=== PATIENT | female | born 1980 | race Caucasian/White ===

== ENCOUNTER 2020-08-07 08:43 | Outpatient (REF) | payer OTHER, SELFPAY ==
--- NOTE | 2020-08-07 | FL_ITS ---
EXAMINATION: XR FLUOROSCOPY WITH IMAGES CLINICAL INFORMATION: Right diagnostic cluneal nerve injection COMPARISON: CT abdomen and pelvis 11/16/2019 TECHNIQUE: Fluoroscopy performed by Dr. Fredy Chang. Fluoroscopy time: 0.6 minutes DAP: 3.50 Gycm2 Images: 1 FINDINGS: There are 2 needles overlying the upper lateral right sacrum. There is contrast along the upper sacrum and vasculature lower right back. There may be some contrast in the nerve sheath overlying right buttocks. IMPRESSION: Fluoroscopy for pain management procedure.
== END 2020-08-07 08:44 | disposition home or self-care (01) ==
LOC: HO.RADIR 08:43
PROVIDERS: Visit Provider Anesthesiology
DX: M47.816 Spondylosis without myelopathy or radiculopathy, lumbar region (principal); G58.8 Other specified mononeuropathies; G89.4 Chronic pain syndrome
CPT/HCPCS: 64450; Q9967

== ENCOUNTER 2020-08-10 10:29 | Outpatient (REF) | payer OTHER, SELFPAY ==
[2020-08-10 12:03] LABS: COVID-19 Test Negative (Negative)
== END 2020-08-10 10:30 | disposition home or self-care (01) ==
LOC: HO.LAB 10:29
PROVIDERS: Visit Provider Internal Medicine
DX: Z20.828 Contact with and (suspected) exposure to other viral communicable diseases (principal)
CPT/HCPCS: 87635

== ENCOUNTER → 2020-08-15 16:59 | Outpatient (BNVA) | payer OTHER, SELFPAY | PROVIDERS: PCP Internal Medicine; Referring Provider Internal Medicine; Visit Provider Anesthesiology | DX: G89.4 Chronic pain syndrome (principal); E10.41 Type 1 diabetes mellitus with diabetic mononeuropathy; M47.816 Spondylosis without myelopathy or radiculopathy, lumbar region ==

== ENCOUNTER 2020-08-21 08:14 | Outpatient (REF) | payer OTHER, SELFPAY ==
--- NOTE | 2020-08-21 14:31 | FL_ITS ---
EXAMINATION: XR FLUOROSCOPY WITH IMAGES CLINICAL INFORMATION: Back pain. COMPARISON: None. TECHNIQUE: Fluoroscopy performed by Dr. Chang. Fluoroscopy time: 0.4 minutes. DAP: 3.15 Gy-cm2. Images: 4. FINDINGS: There are 4 digital images obtained with needle positioned posterior and adjacent to right L5, L4, L3 and L2 vertebra with contrast injection likely for pain management. There is mild loss of L4-L5 disc height. The rest of the disc heights are normal. FL/FL guidance in treatment room IMPRESSION: Fluoroscopy was provided to Dr. Chang for pain management as described above.
== END 2020-08-21 08:15 | disposition home or self-care (01) ==
LOC: HO.RADIR 08:14
PROVIDERS: Visit Provider Anesthesiology
DX: M51.36 Other intervertebral disc degeneration, lumbar region (principal); M47.816 Spondylosis without myelopathy or radiculopathy, lumbar region
CPT/HCPCS: 64493; 64494; Q9967

== ENCOUNTER → 2020-08-30 08:23 | Outpatient (BNVA) | payer OTHER, SELFPAY | PROVIDERS: PCP Internal Medicine; Visit Provider Anesthesiology | DX: Z76.89 Persons encountering health services in other specified circumstances (principal) ==

== ENCOUNTER 2020-09-05 08:21 | Outpatient (RCR) | payer OTHER, SELFPAY ==
--- NOTE | 2020-09-05 11:04 | PC.NURSE ---
Assessment completed on paper to fax to [facility] with release of information.
== END 2020-09-05 12:45 | disposition home or self-care (01) ==
LOC: HO.PAOS 08:21
PROVIDERS: Referring Provider Anesthesiology; Visit Provider Counselor Mental Health
DX: F33.0 Major depressive disorder, recurrent, mild (principal)
CPT/HCPCS: 90791

== ENCOUNTER 2020-09-25 07:56 | Outpatient (REF) | payer OTHER, SELFPAY ==
--- NOTE | 2020-09-25 | MM_ITS ---
EXAMINATION: MM SCREENING DIGITAL BREAST TOMOSYNTHESIS, BILATERAL CLINICAL INFORMATION: Screening. Asymptomatic. The lifetime risk of breast cancer based on the Tyrer-Cuzick Model is 12%. COMPARISON: Mammography: 09/23/2019 (baseline) TECHNIQUE: Digital breast tomosynthesis is performed in both the craniocaudal and mediolateral oblique views along with computer-aided detection (CAD). Synthesized 2D images are generated from the tomosynthesis. Additional exaggerated right CC view is provided. FINDINGS: The breasts are heterogeneously dense, which may obscure small masses (ACR BI-RADS breast composition Category c). Breast tissue composition borders on average fibroglandular pattern is similar to prior exam. There is no interval mass or architectural abnormality. No abnormal calcifications. The axilla and skin contours are unremarkable. No significant changes. MM/MM tomosynthesis screening BI IMPRESSION: No mammographic evidence of malignancy. ASSESSMENT: BI-RADS 1: Negative RECOMMENDATION: Routine annual mammography screening. This patient's information was entered into a reminder system with a target due date for their next mammogram.
== END 2020-09-25 07:57 | disposition home or self-care (01) ==
LOC: HO.MAMMO 07:56
PROVIDERS: Visit Provider Internal Medicine
DX: Z12.31 Encounter for screening mammogram for malignant neoplasm of breast (principal)
CPT/HCPCS: 77063; 77067

== ENCOUNTER → 2020-10-29 13:56 | Outpatient (BNVA) | payer OTHER, SELFPAY | PROVIDERS: PCP Internal Medicine; Referring Provider Internal Medicine; Visit Provider Internal Medicine Endocrinology, Diabetes & Metabolism | DX: Z76.89 Persons encountering health services in other specified circumstances (principal) ==

== ENCOUNTER 2020-11-02 09:06 | Day surgery (SDC) | payer OTHER, SELFPAY ==
[2020-10-29 09:33] VITALS: BMI 26.3
--- NOTE | 2020-11-01 11:52 | HO.ANESPROP2 ---
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 Postlaminectomy syndrome of lumbar region Spondylosis of lumbar region without myelopathy or radiculopathy Surgical History Surgical History History of hemilaminectomy Hx of colonoscopy Social History Social History Advance Directives: No Advance Directives Information Provided: No Advance Directives on File: No Meds Allergies Allergy/AdvReac Type Severity Reaction Status Date / Time azithromycin Allergy Unknown RASH Unverified 07/12/20 16:46 cephalexin Allergy Unknown RASH Unverified 07/12/20 16:46 Penicillins Allergy Unknown RASH Unverified 07/12/20 16:46 Sulfa (Sulfonamide Allergy Unknown RASH Unverified 07/12/20 16:46 Antibiotics) mesalamine AdvReac Unknown DOES NOT Unverified 07/12/20 16:46 WORK FOR PATIENT Home Medications Medication Instructions Recorded Confirmed Type ferrous sulfate 324 mg (65 mg 324 mg PO BID 08/21/20 10/29/20 History iron) tablet,delayed release linaclotide 145 mcg capsule 145 mcg PO DAILY 08/21/20 10/29/20 History pantoprazole 40 mg tablet,delayed 40 mg PO DAILY 08/21/20 10/29/20 History release ascorbate calcium (vitamin C) 500 500 mg PO DAILY 10/29/20 10/29/20 History mg tablet atorvastatin 40 mg tablet 40 mg PO DAILY 10/29/20 10/29/20 History azathioprine 50 mg tablet 50 mg PO 10/29/20 10/29/20 History cholecalciferol (vitamin D3) 1 cap PO DAILY 10/29/20 10/29/20 History gabapentin 1 cap PO TID 10/29/20 10/29/20 History hyoscyamine sulfate 1 tab PO Q12H 10/29/20 10/29/20 History insulin glargine U-300 conc 300 10 unit SUBCUT DAILY ml 10/29/20 10/29/20 History unit/mL (1.5 mL) subcutaneous pen pen needle, diabetic 32 gauge x #50 ea 10/29/20 10/29/20 History ustekinumab [Stelara] SUBCUT 10/29/20 10/29/20 History Exam Exam Date and Time: November 01, 2020 1152 Height,Weight and Vital Signs: Height 5 ft 2 in Weight 65.317 kg Pertinent Lab Results Pertinent Lab Results: Laboratory Tests 03/30/20 06/15/20 15:40 09:40 WBC 5.8 Hgb 11.6 L Hct 34.9 L Plt Count 347 Sodium 139 Potassium 4.4 Chloride 103 BUN 17 H Creatinine 0.74 Assessment and Plan Assessment Anesthesia Assessment: Chart Reviewed Documented by User: Nisreen Villagran 11/02/20 09:46 PMFSH Past Medical History Medical History Anxiety Chronic pain syndrome Crohn's disease Diabetes type 1, controlled 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 Elevated cholesterol 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), 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 Postlaminectomy syndrome of lumbar region Spondylosis of lumbar region without myelopathy or radiculopathy Surgical History Surgical History History of hemilaminectomy Hx of colonoscopy Social History Social History Advance Directives: No Advance Directives Information Provided: No Advance Directives on File: No Meds Allergies Allergy/AdvReac Type Severity Reaction Status Date / Time azithromycin Allergy Unknown RASH Unverified 07/12/20 16:46 cephalexin Allergy Unknown RASH Unverified 07/12/20 16:46 Penicillins Allergy Unknown RASH Unverified 07/12/20 16:46 Sulfa (Sulfonamide Allergy Unknown RASH Unverified 07/12/20 16:46 Antibiotics) mesalamine AdvReac Unknown DOES NOT Unverified 07/12/20 16:46 WORK FOR PATIENT Home Medications Medication Instructions Recorded Confirmed Type ferrous sulfate 324 mg (65 mg 324 mg PO BID 08/21/20 10/29/20 History iron) tablet,delayed release linaclotide 145 mcg capsule 145 mcg PO DAILY 08/21/20 10/29/20 History pantoprazole 40 mg tablet,delayed 40 mg PO DAILY 08/21/20 10/29/20 History release ascorbate calcium (vitamin C) 500 500 mg PO DAILY 10/29/20 10/29/20 History mg tablet atorvastatin 40 mg tablet 40 mg PO DAILY 10/29/20 10/29/20 History azathioprine 50 mg tablet 50 mg PO 10/29/20 10/29/20 History cholecalciferol (vitamin D3) 1 cap PO DAILY 10/29/20 10/29/20 History gabapentin 1 cap PO TID 10/29/20 10/29/20 History hyoscyamine sulfate 1 tab PO Q12H 10/29/20 10/29/20 History insulin glargine U-300 conc 300 10 unit SUBCUT DAILY ml 10/29/20 10/29/20 History unit/mL (1.5 mL) subcutaneous pen pen needle, diabetic 32 gauge x #50 ea 10/29/20 10/29/20 History ustekinumab [Stelara] SUBCUT 10/29/20 10/29/20 History Exam Airway Mallampati Class: II (Small mouth) TM Dist: >3cm Neck ROM: Full Heart: RRR Lungs: CTA Assessment and Plan Assessment Anesthesia Assessment: Anesthesia Plan Discussed and Chart Reviewed Final Anesthetic Review NPO: Yes ASA Class: II Final Preanesthetic Review: Meds/Allgs Chart Reviewed, Consent Obtained/Reviewed and Anes Risks/Benef Reviewed Patient Risk: Intermediate Procedure Risk: Intermediate Anesthetic Plan Anesthetic Plan: MAC: Disposition: Standard PACU
--- NOTE | 2020-11-02 | FL_ITS ---
EXAMINATION: XR FLUOROSCOPY WITH IMAGES CLINICAL INFORMATION: Lumbar spinal cord stimulation. COMPARISON: None. TECHNIQUE: Fluoroscopy performed by Dr. Chang Fluoroscopy time: 1.2 minutes DAP: 3.4 mGy-cm2 Images: 2 FINDINGS: Two images demonstrate a lead projecting over the lower thoracic spine with top of the lead at the T7-T8 and mid T8 vertebral body levels. FL/FL guidance in OR IMPRESSION: Fluoroscopy guidance for lumbar spinal cord stimulator.
--- NOTE | 2020-11-02 09:16 | MHC.SHP ---
Pre-Procedural Eval Section A The patient is an INPATIENT: No Changes since office visit: Yes Patient answered all questions The History & Physical has been completed within 30 days and I have reviewed it.: No Section B Chief Complaint: postlaminectomy syndrome Details of Present Illness: low back pain with radiation into the right groin and back of the right leg. Relevant Family History (Specify if Yes): No Relevant Social History: None Present Medications: None Medical History: No relevant PMH History of Previous Operations: Relevant previous surgery/procedure and date(s) Allergies: Allergies Allergy/AdvReac Type Severity Reaction Status Date / Time azithromycin Allergy Unknown RASH Unverified 07/12/20 16:46 cephalexin Allergy Unknown RASH Unverified 07/12/20 16:46 Penicillins Allergy Unknown RASH Unverified 07/12/20 16:46 Sulfa (Sulfonamide Allergy Unknown RASH Unverified 07/12/20 16:46 Antibiotics) mesalamine AdvReac Unknown DOES NOT Unverified 07/12/20 16:46 WORK FOR PATIENT Review of Systems Sugical H&P ROS: Negative: Constitution, Cardiovascular, Respiratory, Neurological, Psychiatric, Hem-Onc, Allergic/Immunologic, Gastrointestinal, Genitourinary, Musculoskeletal, Integumentary, Endocrine and Eyes/Ears/Nose/Throat Exam Surgical H&P Exam: Normal: HEENT, Normal: Heart, Normal: Lungs, Normal: Extremities, Normal: Abdomen, Normal: Skin and Normal: Neurological Plan Diagnosis/Plan: Unchanged I have reviewed the history and physical and performed a pertinent physical examination on my patient. No changes have occurred unless specified.
[2020-11-02 09:36] LABS: Glucose, Whole Blood 111 mg/dL (60-115)
[2020-11-02 09:39] VITALS: BP 142/85; PULSE 80; RESP 16; TEMP 36.4; O2SAT 97
[2020-11-02 09:48] LABS: UPreg QC Valid YES; Urine Pregnancy NEGATIVE (NEGATIVE)
[2020-11-02] MEDS: vancomycin HCL 1,000 MG in 0.9 % Sodium Chloride 250 ML 270 MG IV (09:50)
[2020-11-02] MEDS: Lactated Ringers 1,000 ML 100 ML IVCONT (09:50)
[2020-11-02 11:37] VITALS: BP 151/98; PULSE 85; RESP 12; TEMP 36.5; O2SAT 99
[2020-11-02 11:52] VITALS: BP 140/86; PULSE 72; RESP 16; O2SAT 99
[2020-11-02] MEDS: oxyCODONE HCl Immed Release 5 MG TABLET 10 MG PO (12:03)
[2020-11-02 12:07] VITALS: BP 147/81; PULSE 74; RESP 16; TEMP 36.5; O2SAT 100
--- NOTE | 2020-11-02 13:52 | HO.POSTANES ---
Post Anesthesia Evaluation Post Anesthesia Evaluation Vital Signs: Vital Signs Temp Pulse Resp BP Pulse Ox 11/02/20 12:07 97.7 F 74 16 147/81 H 100 11/02/20 11:52 72 16 140/86 H 99 11/02/20 11:37 97.7 F 85 12 151/98 H 99 11/02/20 09:39 97.5 F 80 16 142/85 H 97 Anesthesia: Monitored Mental Status: Awake Pain Control: Satisfactory Nausea/Vomiting: None Hydration: Adequate Anesthesia-Related Issues: No Anes. Related Issues
--- NOTE | 2020-11-02 14:18 | P.OP_ITS ---
Operative Note Operative Note Date of Service: 11/02/20 Narrative: After obtaining informed consent and explaining the patient risks benefits and alternatives to today's procedure the patient was taking into the operating room where she positioned prone on the operating table. [place] So ciety of Anesthesiology monitors were applied and patient was deeply sedated. Time I was performed delineating correct site side and name and date of of the patient. Risk of fire need of antibiotics were discussed. Patient received 1 g of vancomycin 1 hour before the procedure start of the infusion. The lower back and mid back of the patient was prepped with ChloraPrep and draped with fenestrated full body drape. Sterilely draped C-arm was brought over the operating field and sq picture of T12-L1 L2 vertebrae was demonstrated on the screen. The point of interest was delineated as L1-L2 interspace. In the projection of lowest point of L 2 pedicle on the right the injection of the local anesthetic lidocaine 2% was performed in the presumable track of the epidural needle. Small kathy of the scalpel was made at that site to the skin. 14 gauge curved epidural Touhy needle was inserted through the kathy and was advanced to were the L1-L2 epidural space on anterior posterior view using loss of resistance to air technique as the guide to the epidural space. When loss of resistance felt guitar wire was inserted into the needle and it was advanced in the projection of the posterior epidural space. Epidural electrode array was inserted through the needle and was advanced to were T8 epidural space slightly right to the projection of the midline spinal processes of T8 and T9 vertebra. After that the procedure was repeated the same very way on the left side. The only difference was that this time the epidural electrode array was advanced straight midline to the top of T8 posterior epidural space. Lateral view was obtained x-ray demonstrating the epidural array leads in the projection of the posterior epidural space. At this moment patient was awaken and the end of the electrode lead R is were connected to the testing device. The testing was performed a and patient reported stimulation corresponding to her areas of the pain. After that local anesthetic was injected again in the point of needle insertions. Under x-ray guidance the needles were withdrawn and stylets were withdrawn from the electrode leads arrays. Anchoring devices were dislodged on each of the electrodes a and anchoring devices were sutured to the skin with 2 0 silk sutures per HR anchoring device. After that bacitracin was applied to the needles entrance points sterile 4x4s were applied the electrodes were connected to the testing device and sterile dressing was applied to the site of the procedure. After that the testing device and electrodes were covered with Medipore tape. The patient tolerated procedure well. She was awaken and taken outside of the operating room to the recovery room. She went home without immediate complications.
== END 2020-11-02 12:45 | disposition home or self-care (01) ==
PROVIDERS: Nurse Practitioner; PCP Internal Medicine; Visit Provider Anesthesiology
PROC: (CPT 63650; principal; 2020-11-02 10:30)
DX: M96.1 Postlaminectomy syndrome, not elsewhere classified (principal); G89.4 Chronic pain syndrome; M47.816 Spondylosis without myelopathy or radiculopathy, lumbar region; M51.36 Other intervertebral disc degeneration, lumbar region; E10.41 Type 1 diabetes mellitus with diabetic mononeuropathy; Z79.4 Long term (current) use of insulin; Z88.1 Allergy status to other antibiotic agents; Z88.2 Allergy status to sulfonamides; Z88.8 Allergy status to other drugs, medicaments and biological substances
CPT/HCPCS: 63650 ×2; 81025; 82947; J1200; J2250; J2405; J3010; J3370

== ENCOUNTER 2020-11-07 09:03 | Outpatient (REF) | payer OTHER, SELFPAY ==
[2020-11-07 09:24] LABS: COVID-19 Test Negative (Negative); IDNOW Serial# 55D5AD1C
== END 2020-11-07 09:04 | disposition home or self-care (01) ==
LOC: HO.EMPCOV 09:03
PROVIDERS: Visit Provider Internal Medicine
DX: Z20.822 Contact with and (suspected) exposure to COVID-19 (principal)
CPT/HCPCS: 36415; 87635; C9803

== ENCOUNTER → 2020-11-08 13:05 | Outpatient (BNVA) | payer OTHER, SELFPAY | PROVIDERS: Visit Provider Anesthesiology | DX: Z76.89 Persons encountering health services in other specified circumstances (principal) ==

== ENCOUNTER → 2020-11-15 10:44 | Outpatient (BNVA) | payer OTHER, SELFPAY | PROVIDERS: PCP Internal Medicine; Visit Provider Anesthesiology ==

== ENCOUNTER 2020-11-29 13:04 | Outpatient (REF) | payer OTHER, SELFPAY ==
[2020-11-29 13:25] LABS: COVID-19 Test Negative (Negative)
== END 2020-11-29 13:05 | disposition home or self-care (01) ==
LOC: HO.EMPCOV 13:04
PROVIDERS: Visit Provider Internal Medicine
DX: Z20.822 Contact with and (suspected) exposure to COVID-19 (principal)
CPT/HCPCS: 87635; C9803

== ENCOUNTER 2020-12-05 14:59 | Outpatient (REF) | payer OTHER, SELFPAY ==
[2020-12-05 15:26] LABS: COVID-19 Test Negative (Negative)
== END 2020-12-05 15:00 | disposition home or self-care (01) ==
LOC: HO.EMPCOV 14:59
PROVIDERS: Visit Provider Internal Medicine
DX: Z20.822 Contact with and (suspected) exposure to COVID-19 (principal)
CPT/HCPCS: 36415; 87635; C9803

== ENCOUNTER → 2020-12-24 11:34 | Outpatient (BNVA) | payer OTHER, SELFPAY | PROVIDERS: PCP Internal Medicine; Visit Provider Anesthesiology | DX: G89.29 Other chronic pain (principal); M47.816 Spondylosis without myelopathy or radiculopathy, lumbar region; M51.36 Other intervertebral disc degeneration, lumbar region; M96.1 Postlaminectomy syndrome, not elsewhere classified; M51.26 Other intervertebral disc displacement, lumbar region | CPT/HCPCS: 99212 ==

== ENCOUNTER 2020-12-24 12:49 | Outpatient (REF) | payer OTHER, SELFPAY ==
[2020-12-24 14:07] LABS: Hematocrit 37.8 % (37-47); Hemoglobin 12.6 g/dl (12.0-16.0); Mean Corpuscular HGB Conc 33.3 g/dl (31.0-35.0); Mean Corpuscular Hemoglobin 33.4 pg (27.0-33.0); Mean Corpuscular Volume 100.3 fL (80-98); Mean Platelet Volume 11.2 fL (9.4-12.3); Platelet Count 462 X10*3/uL (160-400); Red Blood Count 3.77 X10*6/uL (4.20-5.50); Red Cell Distribution Width 13.6 % (11.0-16.0)
[2020-12-24 14:27] LABS: Estimated Average Glucose 114 mg/dL; Hemoglobin A1c % 5.6 %
[2020-12-24 14:56] LABS: Alanine Aminotransferase 6 U/L (0-31); Albumin Level 4.2 g/dL (3.5-5.0); Alkaline Phosphatase 52 U/L (39-117); Anion Gap 15 (12-20); Aspartate Amino Transferase 13 U/L (5-31); Bilirubin Total 0.6 mg/dL (0.0-1.0); Blood Urea Nitrogen 13 mg/dL (9-16); C Reactive Protein 0.22 mg/dL (< or = 0.50); Calcium 9.1 mg/dL (8.4-10.2); Carbon Dioxide 24 mmol/L (22-29); Chloride 106 mmol/L (96-108); Cholesterol 178 mg/dL; Estimated Glomerular Filt Rate > 60; Glucose Fasting 87 mg/dL (60-99); HDL Cholesterol 54 mg/dL; LDL Cholesterol Calculated 98 mg/dl; Potassium 4.2 mmol/L (3.3-5.1); Sodium 141 mmol/L (135-145); Total Protein 7.1 g/dL (6.5-8.0); Triglycerides 131 mg/dL
[2020-12-24 15:00] LABS: Erythrocyte Sedimentation Rate 14 MM/HR (0-20)
[2020-12-25 20:47] LABS: LDL Cholesterol Direct 107 mg/dL (<100)
== END 2020-12-24 12:50 | disposition home or self-care (01) ==
LOC: HO.10HDL 12:49
PROVIDERS: Absent Provider Internal Medicine Gastroenterology; Visit Provider Internal Medicine Endocrinology, Diabetes & Metabolism
DX: E13.9 Other specified diabetes mellitus without complications (principal); K50.10 Crohn's disease of large intestine without complications
CPT/HCPCS: 36415; 80053; 80061; 82397; 83036; 83520; 83721; 85027; 85652; 86140; 86141

== ENCOUNTER 2021-01-07 16:56 | Outpatient (REF) | payer OTHER, SELFPAY | END 2021-01-07 16:57 | disposition home or self-care (01) | LOC: HO.LNP 16:56 | PROVIDERS: Visit Provider Obstetrics & Gynecology | DX: Z13.89 Encounter for screening for other disorder (principal) | CPT/HCPCS: 87480; 87510; 87660 ==

== ENCOUNTER 2021-01-08 06:11 | Outpatient (REF) | payer OTHER, SELFPAY | END 2021-01-08 06:12 | disposition home or self-care (01) | LOC: HO.RADIR 06:11 | PROVIDERS: Visit Provider Anesthesiology | DX: M47.816 Spondylosis without myelopathy or radiculopathy, lumbar region (principal); M51.36 Other intervertebral disc degeneration, lumbar region; M96.1 Postlaminectomy syndrome, not elsewhere classified; M79.18 Myalgia, other site; G58.8 Other specified mononeuropathies; G89.4 Chronic pain syndrome; E13.9 Other specified diabetes mellitus without complications; K50.90 Crohn's disease, unspecified, without complications; Z79.4 Long term (current) use of insulin | CPT/HCPCS: 20552; J3300 ==

== ENCOUNTER → 2021-01-10 08:41 | Outpatient (BNVA) | payer OTHER, SELFPAY | PROVIDERS: PCP Internal Medicine; Visit Provider Anesthesiology ==

== ENCOUNTER 2021-01-22 04:07 | Emergency (ER) | payer OTHER, SELFPAY ==
--- NOTE | ~2021-01-22 | CT_ITS ---
EXAMINATION: CT ABDOMEN AND PELVIS WITH CONTRAST CLINICAL INFORMATION: Left lower quadrant pain. History of Crohn's disease COMPARISON: None TECHNIQUE: Multidetector volumetric images were obtained from the superior aspect of the liver through the pubic symphysis following administration 85 mL of Omnipaque 350 intravenous contrast. Sagittal and coronal reformatted images were obtained on the technologist's workstation. Oral contrast: No This CT examination was performed using dose optimization techniques as appropriate, variously including the following: *Automated exposure control *Adjustment of mA and/or kV according to patient size (this includes techniques or standardized protocols for targeted exams where dose is matched to indication/reason for exam; i.e. extremities or head) *Use of iterative reconstruction technique DLP: 503 mGy-cm FINDINGS: LUNG BASES: The lung bases are clear. LIVER, GALLBLADDER, AND BILIARY TREE: The liver is normal in size, shape, and attenuation. No focal hepatic lesion or biliary ductal dilatation is present. The gallbladder is unremarkable with no evidence of radiopaque gallstones, gallbladder wall thickening, or obvious pericholecystic inflammatory changes. PANCREAS: Unremarkable. SPLEEN: Unremarkable. ADRENAL GLANDS: Unremarkable. KIDNEYS AND URETERS: The kidneys are normal in size, shape, and attenuation. No hydronephrosis, hydroureter, or calculi seen. No perinephric stranding. BLADDER: Unremarkable. GASTROINTESTINAL TRACT: There is scattered stool and gas seen in the colon without significant distention. There is diffuse mural thickening involving descending and sigmoid colon with minimal pericolic fat stranding suggestive of colitis. The small bowel loops and normal caliber. Appendix is not visualized. ABDOMINAL WALL: There is a small lumbar canal hernia containing fat. LYMPH NODES: Normal. VASCULAR: Unremarkable. PELVIC VISCERA: The uterus is anteverted and appears unremarkable. There is no free fluid in the pelvis. OSSEOUS STRUCTURES: There are degenerative disc changes and vacuum disc phenomena L4-L5 disc level. There is mild spondylosis. CT/CT abdomen pelvis w con IMPRESSION: Diffuse mural thickening of sigmoid and descending colon consistent with colitis
[2021-01-22 04:45] VITALS: BP 135/84; PULSE 70; RESP 18; TEMP 36.6; O2SAT 100; BMI 25.6
[2021-01-22 05:42] LABS: MANUAL DIFF FLAG NO
[2021-01-22 05:45] LABS: Basophils Percent Auto 0.2 % (0-2); Eosinophils Absolute Auto 0.1 X10*3/uL (0.0-0.4); Eosinophils Percent Auto 0.4 % (0-4); Hematocrit 39.7 % (37-47); Hemoglobin 13.4 g/dl (12.0-16.0); Imm Gran Pct Auto 0.7 % (0.0-0.4); Lymphocytes Percent Auto 7.4 % (20-40); Mean Corpuscular HGB Conc 33.8 g/dl (31.0-35.0); Mean Corpuscular Hemoglobin 34.5 pg (27.0-33.0); Mean Corpuscular Volume 102.3 fL (80-98); Mean Platelet Volume 10.8 fL (9.4-12.3); Monocytes Absolute Auto 0.7 X10*3/uL (0.1-1.2); Monocytes Percent Auto 4.8 % (2-11); Neutrophils Absolute Auto 11.8 X10*3/uL (2.0-8.3); Neutrophils Percent Auto 86.5 % (45-73); Platelet Count 471 X10*3/uL (160-400); Red Blood Count 3.88 X10*6/uL (4.20-5.50); White Blood Count 13.7 X10*3/uL (4.8-10.8)
[2021-01-22 06:45] LABS: MANUAL DIFF FLAG NO
[2021-01-22 06:50] LABS: Basophils Absolute Auto 0.1 X10*3/uL (0.0-0.2); Basophils Percent Auto 0.3 % (0-2); Eosinophils Percent Auto 0.2 % (0-4); Hemoglobin 12.9 g/dl (12.0-16.0); Imm Gran Abs Auto 0.11 X10*3/uL (0.00-0.03); Imm Gran Pct Auto 0.7 % (0.0-0.4); Lymphocytes Absolute Auto 0.7 X10*3/uL (1.2-4.9); Lymphocytes Percent Auto 4.2 % (20-40); Mean Corpuscular HGB Conc 33.1 g/dl (31.0-35.0); Mean Corpuscular Hemoglobin 34.2 pg (27.0-33.0); Mean Corpuscular Volume 103.4 fL (80-98); Mean Platelet Volume 10.9 fL (9.4-12.3); Monocytes Absolute Auto 1.3 X10*3/uL (0.1-1.2); Monocytes Percent Auto 7.7 % (2-11); Neutrophils Absolute Auto 14.6 X10*3/uL (2.0-8.3); Neutrophils Percent Auto 86.9 % (45-73); Platelet Count 402 X10*3/uL (160-400); Red Blood Count 3.77 X10*6/uL (4.20-5.50); Red Cell Distribution Width 13.8 % (11.0-16.0); White Blood Count 16.7 X10*3/uL (4.8-10.8)
[2021-01-22 07:08] LABS: Alanine Aminotransferase 9 U/L (0-31); Albumin Level 3.8 g/dL (3.5-5.0); Alkaline Phosphatase 56 U/L (39-117); Anion Gap 13 (12-20); Aspartate Amino Transferase 14 U/L (5-31); Bilirubin Total 0.7 mg/dL (0.0-1.0); Blood Urea Nitrogen 18 mg/dL (9-16); Calcium 8.9 mg/dL (8.4-10.2); Carbon Dioxide 25 mmol/L (22-29); Chloride 105 mmol/L (96-108); Creatinine Clr Calc Pharmacy 95.3; Estimated Glomerular Filt Rate > 60; Glucose Random 99 mg/dL (60-115); Potassium 4.3 mmol/L (3.3-5.1); Sodium 139 mmol/L (135-145); Total Protein 6.5 g/dL (6.5-8.0)
[2021-01-22 07:31] LABS: Glucose Urine UA NEG (NEG); Leukocyte Esterase Urine NEG (NEG); Nitrite Urine NEG (NEG); PH 5.5 (5.0-8.0); Specific Gravity - Urine 1.025 (1.005-1.025); Urine Blood 1+ (NEG); Urine Ketones NEG (NEG); Urine Protein NEG (NEG-TRACE)
--- NOTE | 2021-01-22 07:32 | ED_ITS ---
HPI - Abdominal Pain General Chief Complaint: Abdominal Pain Stated Complaint: CHRON'S DISEASE FLARE Time Seen by Provider: 01/22/21 06:10 Source: patient Mode of arrival: ambulatory Limitations: no limitations History of Present Illness HPI narrative: Patient comes to emergency room complaining of abdominal pain. Patient has history of Crohn's. Patient has left lower quadrant pain, radiating towards the back. Patient states it started approximately 4 days ago, over the last couple of days, the cramping has increased. Patient reports rectal bleeding. Complaining of nausea. Patient states that she is usually seen by Dr. Correa from Gastroenterology for her Crohn's. Pt takes Tristen and Brijesh ALCALA elicited complaint: abdominal pain Related Data Home Medications Medication Instructions Recorded Confirmed ferrous sulfate 324 mg (65 mg 324 mg PO BID 08/21/20 10/29/20 iron) tablet,delayed release linaclotide 145 mcg capsule 145 mcg PO DAILY 08/21/20 10/29/20 pantoprazole 40 mg tablet,delayed 40 mg PO DAILY 08/21/20 10/29/20 release ascorbate calcium (vitamin C) 500 500 mg PO DAILY 10/29/20 10/29/20 mg tablet atorvastatin 40 mg tablet 40 mg PO DAILY 10/29/20 10/29/20 azathioprine 50 mg tablet 50 mg PO 10/29/20 10/29/20 cholecalciferol (vitamin D3) 1 cap PO DAILY 10/29/20 10/29/20 hyoscyamine sulfate 1 tab PO Q12H 10/29/20 10/29/20 ustekinumab [Stelara] SUBCUT 10/29/20 10/29/20 Previous Rx's Medication Instructions Recorded blood-glucose transmitter #1 ea 08/24/20 paroxetine HCl 20 mg tablet 20 mg PO DAILY #90 tab 10/01/20 blood-glucose sensor 1 ea MISCELLANEOUS Q10D 90 Days #9 10/31/20 ea clindamycin HCl 300 mg capsule 300 mg PO Q6H 7 Days #28 cap 11/02/20 fluconazole 150 mg tablet 150 mg PO Q3D #3 tab 11/09/20 nystatin 500,000 unit tablet 500,000 unit PO TID #21 tab 11/12/20 insulin glargine U-300 conc 300 10 unit SUBCUT DAILY 30 Days #1.5 11/14/20 unit/mL (1.5 mL) subcutaneous pen ml gabapentin 300 mg capsule 300 mg PO TID #90 cap 11/16/20 pen needle, diabetic 32 gauge x 1 ea MISCELLANEOUS .5 times a day 11/23/20 30 Days #150 ea baclofen 10 mg tablet 10 mg PO TID #90 tab 12/13/20 Allergies Allergy/AdvReac Type Severity Reaction Status Date / Time azithromycin Allergy Unknown RASH Verified 01/10/21 08:48 cephalexin Allergy Unknown RASH Verified 01/10/21 08:48 Penicillins Allergy Unknown RASH Verified 01/10/21 08:48 Sulfa (Sulfonamide Allergy Unknown RASH Verified 01/10/21 08:48 Antibiotics) mesalamine AdvReac Unknown DOES NOT Verified 01/10/21 08:48 WORK FOR PATIENT Review of Systems Review of Systems Constitutional : No Weight loss, No Fever, No Chills, No Night Sweats, No Fatigue, No Malaise ENT/Mouth : No Hearing loss, No Ear Pain, No Nasal Congestion, No Sinus Pain, No Hoarseness, No sore throat, No Rhinorrhea, No Swallowing Difficulty Eyes: No Eye Pain, No Swelling, No Redness, No Foreign Body, No Discharge, No Vision Changes Cardiovascular : No Chest Pain, No SOB, No Dyspnea on Exertion, No Orthopnea, No Edema, No Palpitations Respiratory : No Cough, No Sputum, No Wheezing, No Smoke Exposure, No Dyspnea Gastrointestinal : Complaining of nausea, occasional vomiting, loose stools, diffuse abdominal pain worse in the left lower quadrant, 1 episode of rectal bleeding. Genitourinary : no irregular bleeding, No Dysuria, No Urinary Frequency, No Hematuria, No Urinary Incontinence, No Urgency, No Flank Pain, No Urinary Flow Changes, No Hesitancy Musculoskeletal : No joint pain, No Myalgias, No Joint Swelling Skin : No Skin Lesions, No rash Neuro : No Weakness, No Numbness, No Paresthesias, No Loss of Consciousness, No Dizziness, No Headache Psych : No Anxiety/Panic, No Depression, No SI/HI/AH/VH, No Social Issues, Heme/Lymph: No Bruising, No Bleeding,No Lymphadenopathy Endocrine : No Polyuria, No Polydipsia, No Temperature Intolerance Physical Exam Vital Signs: Vital Signs: Last Vital Signs Temp 97.8 F 01/22/21 04:45 Pulse 70 01/22/21 04:45 Resp 16 01/22/21 10:05 BP 135/84 01/22/21 04:45 Pulse Ox 100 01/22/21 04:45 Body Mass Index 25.6 Appearance: Alert. Oriented X3. No acute distress. Eyes: Pupils equal, round and reactive to light. ENT: Pharynx normal. Neck: Normal inspection. Neck supple. No lymph nodes noted. No crepitus CVS: Normal heart rate and rhythm. Pulses normal. Normal S1 and S2 Respiratory: No respiratory distress. Breath sounds normal. No Wheezing. No rales Abdomen: Soft, mild to moderate discomfort in the left lower quadrant, No rigidity. No distention. Negative for cold blood on LATONYA, brown stool Skin: Skin warm and dry. Normal skin color. Normal skin turgor. Extremities: No lower extremity edema. No lower extremity edema. No Lacerations. No Rash Neuro: Oriented X 3. No motor deficit. No sensory deficit. Moving all extermities. No slurred speech. Course Course Course Narrative: I discussed the labs and CT scan with Dr. Correa from Gastroenterology, if patient feels well enough to go home, she can follow-up as an outpatient. Patient will be discharged on Flagyl and ciprofloxacin. I discussed with the patient that at this time, we can either admit her to the hospital versus sending home. Patient states that she has mild abdominal discomfort, but still feels well enough to go home. I discussed with the patient that if she has any increased abdominal pain, any new symptoms, she needs to return to the emergency room. Patient instructed to call Dr. Correa office to schedule a follow-up appointment within the next 48 hours Patient is requesting a prescription for Diflucan, states that every time she starts antibiotics, she gets yeast infections. MDM - Abdominal Pain Lab Data Result diagrams: 01/22/21 06:38 01/22/21 06:38 Labs: Lab Results 01/22/21 01/22/21 01/22/21 Range/Units 05:30 05:30 06:38 WBC 13.7 H (4.8-10.8) X10*3/uL RBC 3.88 L (4.20-5.50) X10*6/uL Hgb 13.4 (12.0-16.0) g/dl Hct 39.7 (37-47) % MCV 102.3 H (80-98) fL MCH 34.5 H (27.0-33.0) pg MCHC 33.8 (31.0-35.0) g/dl RDW 14.0 (11.0-16.0) % Plt Count 471 H (160-400) X10*3/uL MPV 10.8 (9.4-12.3) fL Immature Gran % (Auto) 0.7 H (0.0-0.4) % Neut % (Auto) 86.5 H (45-73) % Lymph % (Auto) 7.4 L (20-40) % [place] % (Auto) 4.8 (2-11) % Eos % (Auto) 0.4 (0-4) % Baso % (Auto) 0.2 (0-2) % Lymph # (Auto) 1.0 L (1.2-4.9) X10*3/uL [place] # (Auto) 0.7 (0.1-1.2) X10*3/uL Eos # (Auto) 0.1 (0.0-0.4) X10*3/uL Baso # (Auto) 0.0 (0.0-0.2) X10*3/uL Abs Immat Gran (auto) 0.10 H (0.00-0.03) X10*3/uL Absolute Neuts (auto) 11.8 H (2.0-8.3) X10*3/uL Absolute Nucleated RBC 0.000 (0.0-0.012) X10*3/uL Nucleated RBC % (auto) 0.0 (0.0-0.2) /100WBC ESR 7 (0-20) MM/HR Hold Blue Top Sodium 139 (135-145) mmol/L Potassium 4.3 (3.3-5.1) mmol/L Chloride 105 (96-108) mmol/L Carbon Dioxide 25 (22-29) mmol/L Anion Gap 13 (12-20) BUN 18 H (9-16) mg/dL Creatinine 0.68 (0.5-1.4) mg/dL Estim Creat Clear Calc 95.3 Estimated GFR > 60 Random Glucose 99 (60-115) mg/dL Calcium 8.9 (8.4-10.2) mg/dL Total Bilirubin 0.7 (0.0-1.0) mg/dL AST 14 (5-31) U/L ALT 9 (0-31) U/L Alkaline Phosphatase 56 (39-117) U/L Total Protein 6.5 (6.5-8.0) g/dL Albumin 3.8 (3.5-5.0) g/dL Urine Color Urine Appearance Urine pH (5.0-8.0) Ur Specific [place] (1.005-1.025) Urine Protein (NEG-TRACE) MG/DL Urine Glucose (UA) (NEG) MG/DL Urine Ketones (NEG) MG/DL Urine Blood (NEG) Urine Nitrite (NEG) Ur Leukocyte Esterase (NEG) Urine RBC (0) /HPF Urine WBC (0-4) /HPF Ur Squamous Epith Cells /LPF Urine Bacteria /LPF Urine Mucus /LPF Stool Occult Blood (NEGATIVE) 01/22/21 01/22/21 01/22/21 Range/Units 06:38 06:38 07:22 WBC 16.7 H (4.8-10.8) X10*3/uL RBC 3.77 L (4.20-5.50) X10*6/uL Hgb 12.9 (12.0-16.0) g/dl Hct 39.0 (37-47) % MCV 103.4 H (80-98) fL MCH 34.2 H (27.0-33.0) pg MCHC 33.1 (31.0-35.0) g/dl RDW 13.8 (11.0-16.0) % Plt Count 402 H (160-400) X10*3/uL MPV 10.9 (9.4-12.3) fL Immature Gran % (Auto) 0.7 H (0.0-0.4) % Neut % (Auto) 86.9 H (45-73) % Lymph % (Auto) 4.2 L (20-40) % [place] % (Auto) 7.7 (2-11) % Eos % (Auto) 0.2 (0-4) % Baso % (Auto) 0.3 (0-2) % Lymph # (Auto) 0.7 L (1.2-4.9) X10*3/uL [place] # (Auto) 1.3 H (0.1-1.2) X10*3/uL Eos # (Auto) 0.0 (0.0-0.4) X10*3/uL Baso # (Auto) 0.1 (0.0-0.2) X10*3/uL Abs Immat Gran (auto) 0.11 H (0.00-0.03) X10*3/uL Absolute Neuts (auto) 14.6 H (2.0-8.3) X10*3/uL Absolute Nucleated RBC 0.000 (0.0-0.012) X10*3/uL Nucleated RBC % (auto) 0.0 (0.0-0.2) /100WBC ESR (0-20) MM/HR Hold Blue Top SEE NOTE Sodium (135-145) mmol/L Potassium (3.3-5.1) mmol/L Chloride (96-108) mmol/L Carbon Dioxide (22-29) mmol/L Anion Gap (12-20) BUN (9-16) mg/dL Creatinine (0.5-1.4) mg/dL Estim Creat Clear Calc Estimated GFR Random Glucose (60-115) mg/dL Calcium (8.4-10.2) mg/dL Total Bilirubin (0.0-1.0) mg/dL AST (5-31) U/L ALT (0-31) U/L Alkaline Phosphatase (39-117) U/L Total Protein (6.5-8.0) g/dL Albumin (3.5-5.0) g/dL Urine Color YELLOW Urine Appearance CLEAR Urine pH 5.5 (5.0-8.0) Ur Specific [place] 1.025 (1.005-1.025) Urine Protein NEG (NEG-TRACE) MG/DL Urine Glucose (UA) NEG (NEG) MG/DL Urine Ketones NEG (NEG) MG/DL Urine Blood 1+ H (NEG) Urine Nitrite NEG (NEG) Ur Leukocyte Esterase NEG (NEG) Urine RBC 0 (0) /HPF Urine WBC 0-2 (0-4) /HPF Ur Squamous Epith Cells TRACE /LPF Urine Bacteria NONE /LPF Urine Mucus 3+ /LPF Stool Occult Blood (NEGATIVE) 01/22/21 Range/Units 08:15 WBC (4.8-10.8) X10*3/uL RBC (4.20-5.50) X10*6/uL Hgb (12.0-16.0) g/dl Hct (37-47) % MCV (80-98) fL MCH (27.0-33.0) pg MCHC (31.0-35.0) g/dl RDW (11.0-16.0) % Plt Count (160-400) X10*3/uL MPV (9.4-12.3) fL Immature Gran % (Auto) (0.0-0.4) % Neut % (Auto) (45-73) % Lymph % (Auto) (20-40) % [place] % (Auto) (2-11) % Eos % (Auto) (0-4) % Baso % (Auto) (0-2) % Lymph # (Auto) (1.2-4.9) X10*3/uL [place] # (Auto) (0.1-1.2) X10*3/uL Eos # (Auto) (0.0-0.4) X10*3/uL Baso # (Auto) (0.0-0.2) X10*3/uL Abs Immat Gran (auto) (0.00-0.03) X10*3/uL Absolute Neuts (auto) (2.0-8.3) X10*3/uL Absolute Nucleated RBC (0.0-0.012) X10*3/uL Nucleated RBC % (auto) (0.0-0.2) /100WBC ESR (0-20) MM/HR Hold Blue Top Sodium (135-145) mmol/L Potassium (3.3-5.1) mmol/L Chloride (96-108) mmol/L Carbon Dioxide (22-29) mmol/L Anion Gap (12-20) BUN (9-16) mg/dL Creatinine (0.5-1.4) mg/dL Estim Creat Clear Calc Estimated GFR Random Glucose (60-115) mg/dL Calcium (8.4-10.2) mg/dL Total Bilirubin (0.0-1.0) mg/dL AST (5-31) U/L ALT (0-31) U/L Alkaline Phosphatase (39-117) U/L Total Protein (6.5-8.0) g/dL Albumin (3.5-5.0) g/dL Urine Color Urine Appearance Urine pH (5.0-8.0) Ur Specific [place] (1.005-1.025) Urine Protein (NEG-TRACE) MG/DL Urine Glucose (UA) (NEG) MG/DL Urine Ketones (NEG) MG/DL Urine Blood (NEG) Urine Nitrite (NEG) Ur Leukocyte Esterase (NEG) Urine RBC (0) /HPF Urine WBC (0-4) /HPF Ur Squamous Epith Cells /LPF Urine Bacteria /LPF Urine Mucus /LPF Stool Occult Blood NEGATIVE (NEGATIVE) Imaging Data CT scan - abdomen: Radiologist's impression: FINDINGS: LUNG BASES: The lung bases are clear. LIVER, GALLBLADDER, AND BILIARY TREE: The liver is normal in size, shape, and attenuation. No focal hepatic lesion or biliary ductal dilatation is present. The gallbladder is unremarkable with no evidence of radiopaque gallstones, gallbladder wall thickening, or obvious pericholecystic inflammatory changes. PANCREAS: Unremarkable. SPLEEN: Unremarkable. ADRENAL GLANDS: Unremarkable. KIDNEYS AND URETERS: The kidneys are normal in size, shape, and attenuation. No hydronephrosis, hydroureter, or calculi seen. No perinephric stranding. BLADDER: Unremarkable. GASTROINTESTINAL TRACT: There is scattered stool and gas seen in the colon without significant distention. There is diffuse mural thickening involving descending and sigmoid colon with minimal pericolic fat stranding suggestive of colitis. The small bowel loops and normal caliber. Appendix is not visualized. ABDOMINAL WALL: There is a small lumbar canal hernia containing fat. LYMPH NODES: Normal. VASCULAR: Unremarkable. PELVIC VISCERA: The uterus is anteverted and appears unremarkable. There is no free fluid in the pelvis. OSSEOUS STRUCTURES: There are degenerative disc changes and vacuum disc phenomena L4-L5 disc level. There is mild spondylosis. CT/CT abdomen pelvis w con IMPRESSION: Diffuse mural thickening of sigmoid and descending colon consistent with colitis Discharge Plan Discharge Clinical Impression: Colitis Patient Disposition: Home, Self-Care Instructions: Colitis (ED) Additional Instructions: If you have any worsening symptoms or any new ones, please return to emergency room. Otherwise, please follow-up with Dr. Correa. Please follow-up with your primary care physician tomorrow. If you have any worsening or new symptoms, please return to the emergency room or call 911 Prescriptions: No Action (DME) Dexcom G6 Transmitter Device See Rx Instructions .ROUTE .MEDSUPPLY Qty: 1 RF: 3 paroxetine HCl 20 mg tablet 20 mg PO DAILY Qty: 90 RF: 3 blood-glucose sensor [Dexcom G6 Sensor] Device 1 ea miscellaneous Q10D 90 Days Qty: 9 RF: 2 clindamycin HCl 300 mg capsule 300 mg PO Q6H 7 Days Qty: 28 RF: 0 fluconazole 150 mg tablet 150 mg PO Q3D Qty: 3 RF: 2 nystatin 500,000 unit tablet 500,000 unit PO TID Qty: 21 RF: 0 Toujeo SoloStar U-300 Insulin 300 unit/mL (1.5 mL) insulin pen 10 unit subcut DAILY 30 Days Qty: 1.5 RF: 6 gabapentin 300 mg capsule 300 mg PO TID Qty: 90 RF: 5 pen needle, diabetic [BD Monica 2nd Gen Pen Needle] 32 gauge x 5/32 needle 1 ea miscellaneous .5 times a day 30 Days Qty: 150 RF: 4 baclofen 10 mg tablet 10 mg PO TID Qty: 90 RF: 3 hyoscyamine sulfate 0.375 mg tablet extended release 12 hr 1 tab PO Q12H RF: 0 cholecalciferol (vitamin D3) 25 mcg (1,000 unit) capsule 1 cap PO DAILY RF: 0 Stelara 90 mg/mL syringe subcut RF: 0 atorvastatin 40 mg tablet 40 mg PO DAILY RF: 0 ascorbate calcium (vitamin C) 500 mg tablet 500 mg PO DAILY RF: 0 Linzess 145 mcg capsule 145 mcg PO DAILY RF: 0 ferrous sulfate 324 mg (65 mg iron) tablet,delayed release (DR/EC) 324 mg PO BID RF: 0 pantoprazole 40 mg tablet,delayed release (DR/EC) 40 mg PO DAILY RF: 0 azathioprine 50 mg tablet 50 mg PO RF: 0 Stand Alone Forms: Work/School Release [facility] Past Medical History Medical History Anxiety Chronic pain syndrome Crohn's disease Diabetes type 1, controlled 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 Elevated cholesterol 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
[2021-01-22 07:35] LABS: Appearance Urine CLEAR; Color Urine YELLOW
[2021-01-22] MEDS: methylPREDNISolone Sod Succ 125 MG/2 ML VIAL IVPUSH (07:42)
[2021-01-22] MEDS: ondansetron HCL 4 MG/2 ML VIAL IVPUSH (07:42)
[2021-01-22] MEDS: 0.9 % Sodium Chloride 1,000 ML 999 ML IVCONT (07:42)
[2021-01-22 07:44] LABS: RBC Urine 0 /HPF (0); Squamous Epithelial Cell Urine TRACE /LPF; WBC Urine 0-2 /HPF (0-4)
[2021-01-22 07:45] LABS: Mucus Urine 3+ /LPF
[2021-01-22 07:46] VITALS: RESP 18
[2021-01-22] MEDS: Morphine Sulfate 4 MG/ML CARTRIDGE IVPUSH (07:46)
[2021-01-22 07:56] LABS: Erythrocyte Sedimentation Rate 7 MM/HR (0-20)
[2021-01-22] MEDS: iohexoL 350 MG/ML 75 ML INFUS..BTL IV (08:12)
[2021-01-22 08:20] LABS: OBS Int Ctl Valid YES; OBS1 NEGATIVE (NEGATIVE)
[2021-01-22 10:05] VITALS: RESP 16
[2021-01-22] MEDS: Morphine Sulfate 2 MG/ML CARTRIDGE IVPUSH (10:05)
[2021-01-22] MEDS: metroNIDAZOLE 500 MG TABLET PO (10:05)
[2021-01-22] MEDS: levoFLOXacin 500 MG TABLET PO (10:05)
== END 2021-01-22 10:30 | disposition home or self-care (01) ==
PROVIDERS: Student in an Organized Health Care Education/Training Program; Emergency Provider Emergency Medicine; PCP Internal Medicine
DX: K52.9 Noninfective gastroenteritis and colitis, unspecified (principal); M54.5 Low back pain; R11.0 Nausea; Z79.899 Other long term (current) drug therapy
CPT/HCPCS: 36415; 74177; 80053; 81001; 82272; 85025; 85652; 96361; 96365; 96375; 99284; J2270; J2405; J2930; Q9967

== ENCOUNTER → 2021-02-04 13:23 | Outpatient (BNVA) | payer OTHER, SELFPAY | PROVIDERS: PCP Internal Medicine; Visit Provider Internal Medicine Endocrinology, Diabetes & Metabolism ==

== ENCOUNTER 2021-02-11 10:21 | Outpatient (REF) | payer OTHER, SELFPAY ==
--- NOTE | ~2021-02-11 | MR_ITS ---
EXAMINATION: MR LUMBAR SPINE WITHOUT CONTRAST CLINICAL INFORMATION: Low back pain. Right leg pain. Reported prior L4-L5 discectomy in 2006. COMPARISON: MRI dated 05/26/2019 TECHNIQUE: MRI of the lumbar spine was obtained using routine sequences without contrast. FINDINGS: VERTEBRAL BODIES AND PARASPINAL STRUCTURES: Severe disc space narrowing with endplate spurring and a diffuse disc bulge again evident at the L4-L5 level. There are no compression fractures or new subluxations. The remaining discs are well hydrated. The marrow signal is fairly homogeneous. There are chronic and mild edematous endplate changes noted at L4-L5 lateralized to the right side, slightly worsened compared to the prior exam. CONUS MEDULLARIS AND CAUDA EQUINA: Normal, terminating at the level of T12-L1. No lower cord signal abnormality is seen. The cauda equina nerve roots are normal. SPINAL LEVELS: At the L4-L5 level, there is severe disc space narrowing with mixed chronic and mild edematous endplate changes. Broad-based posterior disc bulge again evident with mild impression upon the ventral thecal sac. Stable facet arthropathy. No central canal stenosis. Mild right foraminal narrowing. The remaining discs are normal in appearance without central canal stenosis or foraminal narrowing. MR/MR lumbar spine wo con IMPRESSION: Slightly worsened degenerative endplate changes at the L4-L5 level with a mild posterior disc bulge and mild right foraminal narrowing. No new disc protrusion or central canal stenosis. Remaining lumbar levels are relatively normal in appearance.
== END 2021-02-11 10:22 | disposition home or self-care (01) ==
LOC: HO.MRI 10:21
PROVIDERS: Visit Provider Anesthesiology
DX: M96.1 Postlaminectomy syndrome, not elsewhere classified (principal)
CPT/HCPCS: 72148

== ENCOUNTER → 2021-02-13 15:55 | Outpatient (BNVA) | payer OTHER, SELFPAY | PROVIDERS: PCP Internal Medicine; Visit Provider Anesthesiology ==

== ENCOUNTER 2021-03-05 06:18 | Outpatient (REF) | payer OTHER, SELFPAY ==
--- NOTE | ~2021-03-05 | FL_ITS ---
EXAMINATION: XR FLUOROSCOPY WITH IMAGES CLINICAL INFORMATION: Interval disc degeneration. COMPARISON: None. TECHNIQUE: Fluoroscopy performed by ENRICO Yeboah. Fluoroscopy time: 0.3 minutes DAP: 2.67 Gycm2 Images: 1 FINDINGS: A single AP mid and lower lumbar spine revealing needle positioned at L4-L5 disc with contrast opacifying the disc. No extravasation seen. Visualized L3-L4 L5 L5 heights is normal. There is loss of L4-L5 disc height. No fracture or lytic process seen. FL/FL guidance in treatment room IMPRESSION: Fluoroscopy was provided to Marai Yeboah for L4-L5 discogram
== END 2021-03-05 06:19 | disposition home or self-care (01) ==
LOC: HO.RADIR 06:18
PROVIDERS: Visit Provider Anesthesiology
DX: M51.36 Other intervertebral disc degeneration, lumbar region (principal); M96.1 Postlaminectomy syndrome, not elsewhere classified; K50.90 Crohn's disease, unspecified, without complications; E13.9 Other specified diabetes mellitus without complications; Z79.4 Long term (current) use of insulin; Z79.899 Other long term (current) drug therapy
CPT/HCPCS: 62290; J3300; J3370; Q9967

== ENCOUNTER → 2021-03-11 14:04 | Outpatient (BNVA) | payer OTHER, SELFPAY | PROVIDERS: PCP Internal Medicine; Visit Provider Anesthesiology ==

== ENCOUNTER 2021-04-24 17:28 | Outpatient (REF) | payer OTHER, SELFPAY ==
[2021-04-24 18:14] LABS: MANUAL DIFF FLAG NO
[2021-04-24 18:24] LABS: Basophils Percent Auto 0.4 % (0-2); Eosinophils Absolute Auto 0.1 X10*3/uL (0.0-0.4); Eosinophils Percent Auto 1.1 % (0-4); Hematocrit 35.3 % (37-47); Imm Gran Abs Auto 0.04 X10*3/uL (0.00-0.03); Imm Gran Pct Auto 0.5 % (0.0-0.4); Lymphocytes Absolute Auto 1.9 X10*3/uL (1.2-4.9); Lymphocytes Percent Auto 21.8 % (20-40); Mean Corpuscular Hemoglobin 34.6 pg (27.0-33.0); Mean Corpuscular Volume 101.7 fL (80-98); Monocytes Absolute Auto 0.6 X10*3/uL (0.1-1.2); Monocytes Percent Auto 6.9 % (2-11); Neutrophils Absolute Auto 5.9 X10*3/uL (2.0-8.3); Neutrophils Percent Auto 69.3 % (45-73); Platelet Count 392 X10*3/uL (160-400); Red Blood Count 3.47 X10*6/uL (4.20-5.50); Red Cell Distribution Width 13.6 % (11.0-16.0); White Blood Count 8.5 X10*3/uL (4.8-10.8)
[2021-04-24 18:35] LABS: Alanine Aminotransferase 6 U/L (0-31); Albumin Level 3.9 g/dL (3.5-5.0); Alkaline Phosphatase 62 U/L (39-117); Aspartate Amino Transferase 13 U/L (5-31); Bilirubin Direct 0.2 mg/dL (0.0-0.5); Bilirubin Total 0.4 mg/dL (0.0-1.0); Lipase 41 U/L (8-78); Total Protein 6.5 g/dL (6.5-8.0)
[2021-05-01 11:22] LABS: 6-MMPN 940 (<5700); 6-TGN 344 (235-400)
== END 2021-04-24 17:29 | disposition home or self-care (01) ==
LOC: HO.LAB 17:28
PROVIDERS: Internal Medicine; PCP Internal Medicine; Visit Provider Internal Medicine Gastroenterology
DX: K50.90 Crohn's disease, unspecified, without complications (principal)
CPT/HCPCS: 36415; 80076; 83690; 85025

== ENCOUNTER → 2021-04-26 10:34 | Outpatient (REF) | payer OTHER, SELFPAY ==
--- NOTE | 2021-04-26 10:38 | CA_ITS ---
Transthoracic Echocardiogram Patient (Last, First, Middle): Janine Mulligan M Gender: Female Date of : 1980 Age: 40 Procedure Date: 04/26/2021 Procedure Type: Transthoracic Echocardiogram Location: OP Height: 157.48 cm Weight: 62.6 kg BSA: 1.63 m2 Heart Rate: bpm BP: 110 / 78 mmHg Greenskeeper Laborer: REECE Garcia MD: Bert Leach DO Carpet Layer: Sujit Garcia MD Symptoms: R00.2 - Palpitations Study Quality: Fair ECG Rhythm: Sinus Conclusions: - Essentially normal study Findings Left Ventricle Normal left ventricular size, thickness, and systolic function. The visually estimated ejection fraction is between 60-65%. Diastolic function is normal for age. Right Ventricle Normal right ventricular cavity size and systolic function. Atria Both atria are normal in size. There is no evidence of interatrial shunt. Aortic Valve Normal aortic valve structure and function. There is no aortic valve stenosis. There is no aortic valve regurgitation. Mitral Valve Normal mitral valve structure and function. There is trace mitral valve regurgitation. There is no mitral valve stenosis. Pulmonic Valve The pulmonic valve is likely normal. Tricuspid Valve Normal tricuspid valve structure. There is trace tricuspid valve regurgitation. The right ventricular systolic pressure is normal. The right ventricular systolic pressure is 15 mmHg. Normal right atrial pressure. There is no evidence of pulmonary hypertension. Great Vessels All visible segments of the aorta are normal in size. The pulmonary artery was not well visualized. Venous The inferior vena cava is normal in size and collapses greater than 50% with inspiration. Pericardium/Pleural There is no evidence of pericardial effusion. Prior Study Comparison No previous study in the last 5 years for comparison Measurements 2D Linear Measurements IVSd: 0.85 0.6-0.9/0.6-1.0 cm LVIDd: 4.24 3.9-5.3/4.2-5.9 cm LVIDd Index: 2.60 2.4-3.2/2.2-3.1 cm/m2 LVIDs: 2.89 2.0-3.6 cm LVPWd: 0.80 0.7-1.1 cm Ao Root: 3.20 2.1-3.5 cm LA Diam: 3.00 2.7-3.8/3.0-4.0 cm LAIDs Index: 1.84 1.5-2.3 cm/m2 LV Mass: 132.80 67-162/88-224 g LV Mass Index: 81.47 43-95/49-115 g/m2 LVOT Diam: 2.00 3.0+(-)1.3 cm 2D Systolic Function EF 4C: 64.60 >55% EF 2C: 66.90 >55% EF BiP: 66.40 >55% Mitral Valve MV Pk E: 0.73 MV PK A: 0.48 MV Decel Time: 318.00 E/A: 1.50 E'Lateral: 16.00 E'Medial: 10.00 E/E' Med: 7.30 E/E' Lat: 4.60 PHT: 93.00 MVA PHT: 2.37 Decel [place]: 2.29 Aortic Valve AoV Pk Freddie: 1.31 AoV Mn Freddie: 0.91 AoV VTI: 0.29 AoV Pk Grad: 7.00 Aov Mn Grad: 4.00 NICOLE Cont.VTI: 2.41 LVOT LVOT Pk Freddie: 0.97 LVOT Mn Freddie: 0.63 LVOT VTI: 0.22 LVOT Pk Grad: 4.00 LVOT Mn Grad: 2.00 LVOT Diam: 2.00 LVOT Area: 3.14 Diastolic Function MV Pk E: 0.73 MV Pk A: 0.48 E/A: 1.50 E'Medial: 10.00 E/E' Med: 7.30 E' Laterial: 16.00 E/E' Lat: 4.60 Tricuspid Valve TR Pk Freddie: 1.72 TR Pk Grad: 12.00 RA Press: 3.00 RVSP: 15.00 Great Vessels Aorta Ao Root-2D: 3.20 2.0-3.7 cm Ao Asc: 3.30 2.1-3.4 cm Ao Arch: 2.80 Updated in Other Vendor System with Status of Final Sujit Garcia MD electronically signed on 04/26/2021 3:01:13 PM with status of Final
--- NOTE | 2021-04-26 10:55 | ECG_ITS ---
Hook-up date: 2021-04-26 11:18:00 Duration: 47:59:00 Test Indications: palpitations Medications: [id number] QRS complexes 11 Ventricular ectopics which represent <1 % of total QRS comp. 31 Supraventricular ectopics which represent <1 % of total QRS comp. * Paced QRS complexs which represent % of total QRS comp. VENTRICULAR ECTOPY 11 Isolated 0 Bigeminal Cycles 0 Couplets 0 Runs 0 Beats in Runs * Beats LONGEST at * BPM at :: -- * Beats FASTEST at * BPM at :: -- SUPRAVENTRICULAR ECTOPY 31 Isolated 0 Couplets 0 Runs 0 Beats in Runs * Beats LONGEST at * BPM at :: -- * Beats FASTEST at * BPM at :: -- HEART RATES 55 MIN at 03:53:59 2021-04-27 73 AVG 123 MAX at 12:24:23 2021-04-27 LONGEST RR 1.0880 secs at 02:02:01 2021-04-28 S-T LEVELS Channel 1 - 128 mm at 11:18:00 2021-04-26 - 128 mm at 11:18:00 2021-04-26 Channel 2 - 128 mm at 11:18:00 2021-04-26 - 128 mm at 11:18:00 2021-04-26 Channel 3 - 128 mm at 03:03:71 -- - 128 mm at 03:03:71 Basic rhythm Normal sinus rhythm No long pause or profound bradycardia Rare Premature atrial complexes Patient did not report any symptoms in the diary Referred By: Bert Leach Overread By: PO RODAS MD
--- NOTE | 2021-05-10 13:43 | MHC.HEMONC ---
pharmacy requesting refills on vit c and iron pills. reviewed record and pt has not followed up with Dr Klein. I left her a vm and let Dr Klein know about above.
== END ==
LOC: HO.CARD 10:34
PROVIDERS: Visit Provider Hospitalist
DX: R00.2 Palpitations (principal)
CPT/HCPCS: 93225; 93226; 93306

== ENCOUNTER → 2021-05-06 09:47 | Outpatient (BNVA) | payer OTHER, SELFPAY | PROVIDERS: PCP Internal Medicine; Visit Provider Internal Medicine Endocrinology, Diabetes & Metabolism | DX: E13.9 Other specified diabetes mellitus without complications (principal); E78.5 Hyperlipidemia, unspecified; Z79.4 Long term (current) use of insulin | CPT/HCPCS: 82947 ==

== ENCOUNTER → 2021-12-10 08:08 | Outpatient (BNVA) | payer OTHER, SELFPAY | PROVIDERS: PCP Internal Medicine; Visit Provider Nurse Practitioner Gerontology | DX: E13.9 Other specified diabetes mellitus without complications (principal); E78.5 Hyperlipidemia, unspecified; Z79.4 Long term (current) use of insulin | CPT/HCPCS: 82947; 83036 ==

== ENCOUNTER 2022-01-03 09:04 | Outpatient (REF) | payer OTHER, SELFPAY ==
[2022-01-03 11:49] LABS: Hematocrit 38.5 % (37.0-47.0); Hemoglobin 12.6 g/dl (12.0-16.0); Mean Corpuscular HGB Conc 32.7 g/dl (31.0-35.0); Mean Corpuscular Hemoglobin 33.7 pg (27.0-33.0); Mean Corpuscular Volume 102.9 fL (80.0-98.0); Mean Platelet Volume 11.4 fL (9.4-12.3); Platelet Count 430 X10*3/uL (160-400); Red Blood Count 3.74 X10*6/uL (4.20-5.50); Red Cell Distribution Width 14.3 % (11.0-16.0); White Blood Count 5.4 X10*3/uL (4.8-10.8)
[2022-01-03 12:34] LABS: Free T4 (Free Thyroxine) 0.91 ng/dL (0.71-1.85); Thyroid Stimulating Hormone 1.27 uIU/mL (0.32-4.0)
[2022-01-03 12:39] LABS: TSH reflex Free T4 1.23 uIU/mL (0.32-4.0)
[2022-01-03 12:42] LABS: Alanine Aminotransferase 6 U/L (0-31); Alkaline Phosphatase 62 U/L (39-117); Anion Gap 12 (12-20); Aspartate Amino Transferase 14 U/L (5-31); Bilirubin Total 0.7 mg/dL (0.0-1.0); Blood Urea Nitrogen 12 mg/dL (9-16); Calcium 9.6 mg/dL (8.4-10.2); Carbon Dioxide 26 mmol/L (22-29); Chloride 105 mmol/L (96-108); Cholesterol 177 mg/dL; Creatinine Urine 132.66 mg/dL; Estimated Glomerular Filt Rate > 60; Glucose Fasting 84 mg/dL (60-99); HDL Cholesterol 60 mg/dL; Iron 139 mcg/dL (30-160); LDL Cholesterol Calculated 91 mg/dl; Microalbum/Creatinine Ratio Ur 3.7 ug/mg cr; Potassium 4.4 mmol/L (3.3-5.1); Sodium 139 mmol/L (135-145); Total Protein 6.9 g/dL (6.5-8.0); Triglycerides 133 mg/dL
[2022-01-03 12:52] LABS: Percent Iron Saturation 50 % (15-50); Total Iron Binding Capacity 280 mcg/dL (228-428); Unsaturated Iron Binding 141 ug/dL
[2022-01-04 16:20] LABS: C Peptide 0.75 ng/mL (0.80-3.85); LDL Cholesterol Direct 96 mg/dL (<100)
== END 2022-01-03 09:05 | disposition home or self-care (01) ==
LOC: HO.HMGCLDS 09:04
PROVIDERS: Absent Provider Nurse Practitioner Gerontology; PCP Internal Medicine; Visit Provider Internal Medicine
DX: Z00.00 Encounter for general adult medical examination without abnormal findings (principal); E55.9 Vitamin D deficiency, unspecified; E61.1 Iron deficiency; E13.9 Other specified diabetes mellitus without complications
CPT/HCPCS: 36415; 80053; 80061; 82043; 83540; 83721; 84439; 84443; 84681; 85027

== ENCOUNTER 2022-04-11 14:59 | Outpatient (REF) | payer OTHER, SELFPAY ==
[2022-04-11 15:40] LABS: MANUAL DIFF FLAG NO
[2022-04-11 16:03] LABS: Basophils Percent Auto 0.6 % (0-2); Eosinophils Absolute Auto 0.1 X10*3/uL (0.0-0.4); Eosinophils Percent Auto 1.8 % (0-4); Hematocrit 36.1 % (37.0-47.0); Hemoglobin 12.4 g/dl (12.0-16.0); Imm Gran Abs Auto 0.02 X10*3/uL (0.00-0.03); Imm Gran Pct Auto 0.3 % (0.0-0.4); Lymphocytes Absolute Auto 1.8 X10*3/uL (1.2-4.9); Lymphocytes Percent Auto 26.5 % (20-40); Mean Corpuscular HGB Conc 34.3 g/dl (31.0-35.0); Mean Corpuscular Hemoglobin 34.5 pg (27.0-33.0); Mean Corpuscular Volume 100.6 fL (80.0-98.0); Mean Platelet Volume 11.2 fL (9.4-12.3); Monocytes Absolute Auto 0.6 X10*3/uL (0.1-1.2); Monocytes Percent Auto 8.8 % (2-11); Neutrophils Absolute Auto 4.1 x10*3/uL (2.0-8.3); Platelet Count 337 X10*3/uL (160-400); Red Blood Count 3.59 X10*6/uL (4.20-5.50); Red Cell Distribution Width 13.6 % (11.0-16.0); White Blood Count 6.6 X10*3/uL (4.8-10.8)
[2022-04-11 16:15] LABS: Alanine Aminotransferase 18 U/L (0-31); Albumin Level 4.1 g/dL (3.5-5.0); Alkaline Phosphatase 90 U/L (39-117); Aspartate Amino Transferase 25 U/L (5-31); Bilirubin Direct 0.2 mg/dL (0.0-0.5); Bilirubin Total 0.4 mg/dL (0.0-1.0); C Reactive Protein 0.11 mg/dL (< or = 0.50); Lipase 27 U/L (8-78); Total Protein 6.8 g/dL (6.5-8.0)
[2022-04-11 16:34] LABS: Erythrocyte Sedimentation Rate 10 MM/HR (0-20)
[2022-04-17 11:36] LABS: 6-MMPN 527 (<5700); 6-TGN 505 (235-400)
== END 2022-04-11 15:00 | disposition home or self-care (01) ==
LOC: HO.LAB 14:59
PROVIDERS: PCP Internal Medicine; Visit Provider Internal Medicine Gastroenterology
DX: K50.111 Crohn's disease of large intestine with rectal bleeding (principal)
CPT/HCPCS: 36415; 80076; 80299; 82397; 83520; 83690; 85025; 85652; 86140; 86141

== ENCOUNTER 2022-05-02 09:34 | Outpatient (REF) | payer OTHER, SELFPAY ==
[2022-05-02 10:42] LABS: Alanine Aminotransferase 21 U/L (0-31); Albumin Level 4.1 g/dL (3.5-5.0); Alkaline Phosphatase 79 U/L (39-117); Anion Gap 13 (12-20); Aspartate Amino Transferase 29 U/L (5-31); Bilirubin Total 0.3 mg/dL (0.0-1.0); Blood Urea Nitrogen 12 mg/dL (9-16); Calcium 9.2 mg/dL (8.4-10.2); Carbon Dioxide 25 mmol/L (22-29); Chloride 105 mmol/L (96-108); Cholesterol 155 mg/dL; Estimated Glomerular Filt Rate > 60; Glucose Fasting 88 mg/dL (60-99); HDL Cholesterol 60 mg/dL; LDL Cholesterol Calculated 77 mg/dl; Potassium 4.3 mmol/L (3.3-5.1); Sodium 139 mmol/L (135-145); Total Protein 6.8 g/dL (6.5-8.0); Triglycerides 94 mg/dL
[2022-05-02 12:23] LABS: Creatinine Urine 174.98 mg/dL; Microalbum/Creatinine Ratio Ur 6.8 ug/mg cr
== END 2022-05-02 09:35 | disposition home or self-care (01) ==
LOC: HO.LAB 09:34
PROVIDERS: PCP Internal Medicine; Visit Provider Nurse Practitioner Gerontology
DX: E13.9 Other specified diabetes mellitus without complications (principal)
CPT/HCPCS: 36415; 80053; 80061; 82043

== ENCOUNTER 2022-08-09 10:23 | Outpatient (REF) | payer OTHER, SELFPAY ==
--- NOTE | ~2022-08-09 | MM_ITS ---
EXAMINATION: MM SCREENING DIGITAL BREAST TOMOSYNTHESIS, BILATERAL CLINICAL INFORMATION: Screening. Asymptomatic. The lifetime risk of breast cancer based on the Tyrer-Cuzick Model is 12%. COMPARISON: Mammography: 09/25/2020, 09/23/2019 (baseline) TECHNIQUE: Digital breast tomosynthesis is performed in both the craniocaudal and mediolateral oblique views along with computer-aided detection (CAD). Synthesized 2D images are generated from the tomosynthesis. FINDINGS: The breasts are heterogeneously dense, which may obscure small masses (ACR BI-RADS breast composition Category c). There are no significant masses, abnormal calcifications, or other abnormalities. Parenchymal pattern is similar to prior studies. Breast tissue composition borders on average fibroglandular. There is no developing density. No significant changes. MM/MM tomosynthesis screening BI IMPRESSION: No mammographic evidence of malignancy. ASSESSMENT: BI-RADS 1: Negative RECOMMENDATION: Routine annual mammography screening. This patient's information was entered into a reminder system with a target due date for their next mammogram.
== END 2022-08-09 10:24 | disposition home or self-care (01) ==
LOC: HO.MAMMO 10:23
PROVIDERS: PCP Internal Medicine; Visit Provider Internal Medicine
DX: Z12.31 Encounter for screening mammogram for malignant neoplasm of breast (principal)
CPT/HCPCS: 77063; 77067

== ENCOUNTER → 2022-08-19 08:58 | Outpatient (BNVA) | payer OTHER, SELFPAY | PROVIDERS: PCP Internal Medicine; Visit Provider Internal Medicine Endocrinology, Diabetes & Metabolism | DX: E13.9 Other specified diabetes mellitus without complications (principal) | CPT/HCPCS: 82947; 83036 ==

== ENCOUNTER 2022-08-28 12:28 | Day surgery (SDC) | payer OTHER, SELFPAY ==
[2022-08-25 14:43] VITALS: BMI 24.8
--- NOTE | 2022-08-27 12:12 | P.CONAN_ITS ---
Documented by User: Jade Sanchez NP 08/27/22 12:14 HPI - Anesthesia Eval Consult details Narrative: 42yo F for Bilateral Lumbar L2 Sympathetic Block PMFSH Active Problems Active Problems: All Active Problems (Updated 07/31/22 @ 15:27 by Fredy Chang MD) Raynaud's syndrome without gangrene (Acute) Varicose veins of right lower extremity with inflammation (Acute) Neuropathy (Acute) Vitamin D deficiency (Acute) Iron deficiency (Acute) Normal pelvic exam (Acute) Annual physical exam (Acute) Raynaud's disease (Acute) Palpitations (Acute) Piriformis muscle pain (Acute) 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 (Acute) care home (current) use of insulin (Acute) 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), managed as type 1 (Acute) DDD (degenerative disc disease), lumbar (Acute) Postlaminectomy syndrome of lumbar region (Acute) Diabetes type 1, controlled (Acute) Chronic pain syndrome (Acute) Other specified mononeuropathies (Acute) Spondylosis of lumbar region without myelopathy or radiculopathy (Acute) Past Medical History Medical History (Updated 02/19/23 @ 13:35 by Emi Briceño MD) Annual physical exam Anxiety Chronic pain syndrome Crohn's disease Diabetes type 1, controlled 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 Elevated cholesterol 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), managed as type 1 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: House Alcohol intake: never Patient Tobacco Use Status: Never used Tobacco e-Cigarette/Vaping Use: Never Used service: No Current occupational status: employed Cognitive needs: No Hearing needs: No Vision needs: Yes Meds Allergies Allergy/AdvReac Type Severity Reaction Status Date / Time azithromycin Allergy Unknown RASH Verified 02/19/23 12:56 cephalexin Allergy Unknown RASH Verified 02/19/23 12:56 Penicillins Allergy Unknown RASH Verified 02/19/23 12:56 Sulfa (Sulfonamide Allergy Unknown RASH Verified 02/19/23 12:56 Antibiotics) mesalamine AdvReac Unknown DOES NOT Verified 02/19/23 12:56 WORK FOR PATIENT Home Medications Medication Instructions Recorded Confirmed Last Taken Type linaclotide 145 mcg capsule 145 mcg PO DAILY 08/21/20 02/19/23 Unknown History hyoscyamine sulfate 0.375 mg 1 tab PO Q12H 10/29/20 02/19/23 Unknown History tablet,extended release,12 hr ustekinumab 90 mg/mL subcutaneous 45 mg subcut 12/10/21 02/19/23 Unknown History syringe (Stelara) tumeric 100 mg-radha 150 mg-olive cap PO 07/31/22 02/19/23 Unknown History 50 mg-oreg 150 mg-caprylate capsule norethindrone 1.5 mg-ethinyl 1 tab PO DAILY 08/19/22 02/19/23 Unknown History estradiol 30 mcg(21)/iron 75 mg(7) tablet (Aurovela Fe 1.5/30 (28)) azathioprine 50 mg tablet 100 mg PO DAILY 02/19/23 02/19/23 Unknown History pantoprazole 40 mg tablet,delayed 40 mg PO DAILY 02/19/23 02/19/23 Unknown History release Exam Exam Date and Time: August 27, 2022 1212 Height,Weight and Vital Signs: Height 5 ft 2 in Weight 61.689 kg Pertinent Lab Results Pertinent Lab Results: Laboratory Tests 04/11/22 05/02/22 15:39 09:43 WBC 6.6 Hgb 12.4 Hct 36.1 L Plt Count 337 Sodium 139 Potassium 4.3 Chloride 105 Carbon Dioxide 25 BUN 12 Creatinine 0.70 Documented by User: Raj Carrillo MD 02/26/23 17:31 [facility] Past Medical History Medical History (Updated 02/19/23 @ 13:35 by Emi Briceño MD) Annual physical exam Anxiety Chronic pain syndrome Crohn's disease Diabetes type 1, controlled 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 Elevated cholesterol 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), managed as type 1 care home (current) use of insulin Normal pelvic exam Other specified mononeuropathies Postlaminectomy syndrome of lumbar region Spondylosis of lumbar region without myelopathy or radiculopathy Vitamin D deficiency Family History Family History Mother Tongue cancer Father Type 2 diabetes mellitus Retinopathy Neuropathy Angiopathy Blindness Renal failure Hypertension Cataract Skin cancer Paternal Uncle Substance use disorder Family history of problems with anesthesia: No Surgical History Surgical History History of hemilaminectomy Hx of colonoscopy History of Problems with Anesthesia: No Social History Social History Household Members: Spouse and Children Household Members Other:: , 2 sons (11. 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: House Alcohol intake: never Patient Tobacco Use Status: Never used Tobacco e-Cigarette/Vaping Use: Never Used service: No Current occupational status: employed Cognitive needs: No Hearing needs: No Vision needs: Yes Meds Allergies Allergy/AdvReac Type Severity Reaction Status Date / Time azithromycin Allergy Unknown RASH Verified 02/19/23 12:56 cephalexin Allergy Unknown RASH Verified 02/19/23 12:56 Penicillins Allergy Unknown RASH Verified 02/19/23 12:56 Sulfa (Sulfonamide Allergy Unknown RASH Verified 02/19/23 12:56 Antibiotics) mesalamine AdvReac Unknown DOES NOT Verified 02/19/23 12:56 WORK FOR PATIENT Home Medications Medication Instructions Recorded Confirmed Last Taken Type linaclotide 145 mcg capsule 145 mcg PO DAILY 08/21/20 02/19/23 Unknown History hyoscyamine sulfate 0.375 mg 1 tab PO Q12H 10/29/20 02/19/23 Unknown History tablet,extended release,12 hr ustekinumab 90 mg/mL subcutaneous 45 mg subcut 12/10/21 02/19/23 Unknown History syringe (Stelara) tumeric 100 mg-radha 150 mg-olive cap PO 07/31/22 02/19/23 Unknown History 50 mg-oreg 150 mg-caprylate capsule norethindrone 1.5 mg-ethinyl 1 tab PO DAILY 08/19/22 02/19/23 Unknown History estradiol 30 mcg(21)/iron 75 mg(7) tablet (Aurovela Fe 1.5/30 (28)) azathioprine 50 mg tablet 100 mg PO DAILY 02/19/23 02/19/23 Unknown History pantoprazole 40 mg tablet,delayed 40 mg PO DAILY 02/19/23 02/19/23 Unknown History release Exam Airway Mallampati Class: III TM Dist: >3cm Neck ROM: Full Loose/Missing/Broken Teeth: Yes (Poor dentition ) Assessment and Plan Assessment Anesthesia Assessment: Anesthesia Plan Discussed and Chart Reviewed Final Anesthetic Review Family History of Problems with Anesthesia: No History of Problems with Anesthesia: No NPO: Yes ASA Class: III Final Preanesthetic Review: Meds/Allgs Chart Reviewed, Consent Obtained/Reviewed and Anes Risks/Benef Reviewed Patient Risk: Intermediate Procedure Risk: Intermediate Anesthetic Plan Anesthetic Plan: MAC: and Agree w/ Assess. and Plan Disposition: Standard PACU
--- NOTE | ~2022-08-28 | FL_ITS ---
EXAMINATION: XR FLUOROSCOPY WITH IMAGES CLINICAL INFORMATION: Pain. Lumbar sympathetic block. COMPARISON: MR lumbar spine 02/11/2021. TECHNIQUE: Fluoroscopy performed by Dr. Fredy Chang. Fluoroscopy time: 1.1 minutes. Cumulative Dose: 19.3 mGy. DAP: 4.72 Gycm2. Images: 2. FINDINGS: There are 2 spinal needles approximately level L2 with the needle tips just beyond the anterior vertebral bodies. There is contrast parallel to the long axis anterior vertebral bodies. No visible vascular communication. There is a small electronic device overlying the anterior abdomen FL/FL guidance in OR IMPRESSION: Fluoroscopy for pain management procedures.
[2022-08-28 13:02] LABS: UPreg QC Valid YES; Urine Pregnancy NEGATIVE (NEGATIVE)
[2022-08-28 13:07] VITALS: BP 129/86; PULSE 88; RESP 18; TEMP 36.4; O2SAT 100; BMI 25.0
[2022-08-28] MEDS: Lactated Ringers 1,000 ML 100 ML IVCONT (13:12)
[2022-08-28 13:22] LABS: Glucose, Whole Blood 85 mg/dL (60-115)
[2022-08-28 13:22] LABS: Glucose, Whole Blood 67 mg/dL (60-115)
[2022-08-28] MEDS: Dextrose 5 % 250 ML 50 ML IV (13:34)
--- NOTE | 2022-08-28 13:34 | PC.NURSE ---
pt with increased hunger & lightheaded. poc 67 by [facility] glucometer @ 12:45, immediate iv start & iv D5w 250ml ordered by Dr. Carrillo., repeat poc 85 @ 1318 s/p 100ml of d5w & improved symptoms.
--- NOTE | 2022-08-28 13:56 | MHC.SHP ---
Pre-Procedural Eval Section A Date of Service: 08/28/22 The patient is an INPATIENT: No Changes since office visit: Yes Patient answered all questions The History & Physical has been completed within 30 days and I have reviewed it.: No Section B Chief Complaint: Raynaud's syndrome without gangrene Details of Present Illness: as above Relevant Family History (Specify if Yes): No Relevant Social History: None Present Medications: see Short Stay Collaborative assessment Medical History: No relevant PMH History of Previous Operations: No relevant previous surgery Allergies: Allergies Allergy/AdvReac Type Severity Reaction Status Date / Time azithromycin Allergy Unknown RASH Verified 08/19/22 09:06 cephalexin Allergy Unknown RASH Verified 08/19/22 09:06 Penicillins Allergy Unknown RASH Verified 08/19/22 09:06 Sulfa (Sulfonamide Allergy Unknown RASH Verified 08/19/22 09:06 Antibiotics) mesalamine AdvReac Unknown DOES NOT Verified 08/19/22 09:06 WORK FOR PATIENT Review of Systems Sugical H&P ROS: Negative: Constitution, Cardiovascular, Respiratory, Neurological, Psychiatric, Hem-Onc, Allergic/Immunologic, Gastrointestinal, Genitourinary, Musculoskeletal, Integumentary, Endocrine and Eyes/Ears/Nose/Throat Exam Surgical H&P Exam: Normal: HEENT, Normal: Heart, Normal: Lungs, Normal: Extremities, Normal: Abdomen, Normal: Skin and Normal: Neurological Plan Diagnosis/Plan: Unchanged I have reviewed the history and physical and performed a pertinent physical examination on my patient. No changes have occurred unless specified.
[2022-08-28 15:01] VITALS: BP 130/56; PULSE 104; RESP 15; TEMP 36.5; O2SAT 99
--- NOTE | 2022-08-28 15:10 | PM.OP ---
Brief Operative Note Date of Service: 08/28/22 Procedure: Raynaud syndrome Surgeon: Fredy Chang MD Anesthesia: MAC Was an Android Developer used for this Procedure?: No Estimated blood loss (mL): 0 Condition: stable Disposition: PACU
--- NOTE | 2022-08-28 15:11 | P.OP_ITS ---
Operative Note Operative Note Date of Service: 08/28/22 Narrative: Janine is very pleasant 42 years old female who came to the operating room for bilateral L2 sympathetic block to treat Raynaud syndrome. She came to the operating room and was positioned prone rafting table with pillow under her abdomen. [place] [employer] monitors were applied and patient was moderately sedated. We were able to have conversation with the patient at all times during the procedure. Time-out was performed delineating correct site and side of the procedure namely the versus the patient allergies and needs for antibiotic prophylaxis. Her lower back was prepped with ChloraPrep and draped with sterile utility towels. C-arm was brought over the operating field and the sq picture of L2 vertebra was demonstrated on the screen. After that?C-arm to the to the right 1st to superimpose the tip of the transverse process and anterior border of the L2 vertebra. The point of injection was chosen is lower 3rd of the projection of vertebra approximately at the middle of the pedicle projection. After that injection of the skin with lidocaine to% was performed in the skin. After that 22 gauge 5 in needle was inserted through the skin wheal and advanced to were the anterio lateral surface on the right of the L2 vertebra on her intermittent anterior posterior lateral and oblique views. When needle was 3 mm away from anterior border of the vertebra the advancement of the needle was stopped and the same needle advancement was performed on the left side at the same very fashion. When both of the needles were positioned appropriately injection of the contrast was performed delineating spread of the contrast in the front of the anterior border of the vertebra as. The contrast did not spread in any vascular structures, no intrathecal contrast spread was noted and no contrast spread was noted in the hollow organs. Aspiration of which needle resulted in no aspiration of air, CSF, or blood. After that treatment solution containing ropivacaine 0.5% 7 cc mixed with Decadron 4 mg was performed into each needle. The patient tolerated procedure well. Upon completion of the procedure the needles were withdrawn and pressure was applied. Sterile dressing was applied after that. The patient tolerated procedure well. She was taken outside of the operating room to recovery room where she recovered uneventfully.
[2022-08-28 15:16] VITALS: BP 134/91; PULSE 80; RESP 14; TEMP 36.4; O2SAT 100
[2022-08-28 15:28] LABS: Glucose, Whole Blood 136 mg/dL (60-115)
[2022-08-28 15:31] VITALS: BP 106/65; PULSE 88; RESP 14; TEMP 36.1; O2SAT 100
[2022-08-28] MEDS: Acetaminophen 325 MG TABLET 650 MG PO (15:33)
[2022-08-28 15:46] VITALS: BP 114/81; PULSE 72; RESP 14; TEMP 36.1; O2SAT 100
[2022-08-28 16:01] VITALS: BP 120/72; PULSE 86; RESP 16; TEMP 36.1; O2SAT 100
== END 2022-08-28 16:23 ==
LOC: HO.SSS 12:28
PROVIDERS: Nurse Practitioner; PCP Internal Medicine; Visit Provider Anesthesiology
PROC: (CPT 64520; principal; 2022-08-28 14:00)
DX: I73.00 Raynaud's syndrome without gangrene (principal); G89.4 Chronic pain syndrome; M96.1 Postlaminectomy syndrome, not elsewhere classified; M47.816 Spondylosis without myelopathy or radiculopathy, lumbar region; E10.8 Type 1 diabetes mellitus with unspecified complications; Z79.4 Long term (current) use of insulin; G58.8 Other specified mononeuropathies; E55.9 Vitamin D deficiency, unspecified; K50.90 Crohn's disease, unspecified, without complications; E78.5 Hyperlipidemia, unspecified; F41.1 Generalized anxiety disorder
CPT/HCPCS: 64520; 81025; 82947; J1100; J2250; J2795; J3010; J3300

== ENCOUNTER 2022-09-01 14:06 | Outpatient (REF) | payer OTHER, SELFPAY ==
[2022-09-01 15:02] LABS: Influenza A PCR NEGATIVE (Negative); Influenza B PCR NEGATIVE (Negative); Resp Syncy Virus RNA Qual PCR NEGATIVE (Negative); SARS COV2 PCR INHOUSE NEGATIVE (Negative)
== END 2022-09-01 14:07 | disposition home or self-care (01) ==
LOC: HO.LNP 14:06
PROVIDERS: Visit Provider Emergency Medicine
DX: Z20.822 Contact with and (suspected) exposure to COVID-19 (principal); R30.0 Dysuria; R68.89 Other general symptoms and signs
CPT/HCPCS: 0241U; 87086

== ENCOUNTER 2022-09-02 13:09 | Outpatient (REF) | payer OTHER, SELFPAY ==
--- NOTE | ~2022-09-02 | CT_ITS ---
EXAMINATION: CT ABDOMEN AND PELVIS WITHOUT IV CONTRAST CLINICAL INFORMATION: Unspecified abdominal pain. COMPARISON: 01/22/2021 TECHNIQUE: Multidetector volumetric imaging was performed from the superior aspect of the liver through the pubic symphysis. No intravenous contrast. Oral contrast was given. Sagittal and coronal reformatted images were obtained on the technologist's workstation. This CT examination was performed using dose optimization techniques as appropriate, variously including the following: *Automated exposure control *Adjustment of mA and/or kV according to patient size (this includes techniques or standardized protocols for targeted exams where dose is matched to indication/reason for exam; i.e. extremities or head) *Use of iterative reconstruction technique DLP: 455 mGy-cm FINDINGS: LUNG BASES: Normal. No pulmonary consolidation or pleural effusion. LIVER: The liver has normal size, shape, and attenuation. No evidence of liver mass. GALLBLADDER AND BILIARY TREE: Gallbladder is without radiopaque stones, wall thickening or pericholecystic fluid. No dilated bile ducts. PANCREAS: Normal. No edema, pancreatic ductal dilatation or mass. SPLEEN: Normal. ADRENAL GLANDS: Normal. KIDNEYS AND URETERS: The kidneys have normal size and cortical thickness. No perinephric edema or fluid collection. No urolithiasis or hydroureteronephrosis. BLADDER: Normal. No calculi or wall thickening. BOWEL AND PERITONEUM: Stomach is well distended with ingested oral contrast. No gastric wall thickening. The small bowel and appendix have a normal appearance on these images obtained without intravenous contrast. No dilated bowel loops. No enteroenteric fistula. The terminal ileum is grossly normal in this patient with history of Crohn disease. Compared to 01/22/2021, there has been interval resolution of the descending colitis. The circumferential wall thickening of the rectum remains similar in appearance compared to 01/22/2021. There is no perirectal fluid collection. A lymph node of 0.7 cm short axis dimension in the mesorectal compartment is stable compared to 01/22/2021. ABDOMINAL WALL: Unremarkable. VASCULATURE: Mild atherosclerosis of the abdominal aorta without aneurysm. LYMPH NODES: No pathologic sized lymph nodes in the abdomen or pelvis. No inguinal lymphadenopathy. PELVIC VISCERA: The uterus and adnexa are unremarkable. No pelvic abscess or free fluid. SKELETAL: At L4-5, there is degenerative disc disease as manifest by loss of disc height, vacuum disc phenomenon, endplate sclerosis and osteophytosis. No evidence of sacroiliitis. CT/CT abdomen pelvis wo IV con IMPRESSION: The persistent circumferential wall thickening of the rectum could represent chronic or recurrent proctitis in this patient with history of Crohn disease. Correlate for any rectoanal region symptoms. There is no perirectal abscess or overt perianal fistula, although evaluation is somewhat limited on this test performed without intravenous contrast. The previously observed inflammation along the descending colon has resolved. There are no new sites of inflammatory change in small or large bowel compared to 01/22/2021.
[2022-09-02] MEDS: Barium Sulfate Oral (Berry) 450 ML ORAL.SUSP 900 ML PO (15:42)
== END 2022-09-02 13:10 | disposition home or self-care (01) ==
LOC: HO.CT 13:09
PROVIDERS: PCP Internal Medicine; Visit Provider Anesthesiology
DX: R10.9 Unspecified abdominal pain (principal)
CPT/HCPCS: 74176

== ENCOUNTER 2022-09-04 05:41 | Emergency (ER) | payer OTHER, SELFPAY ==
[2022-09-04 06:16] VITALS: BP 139/85; PULSE 103; RESP 16; TEMP 36.9; O2SAT 100; BMI 25.0
[2022-09-04 06:38] LABS: MANUAL DIFF FLAG NO
[2022-09-04 06:41] LABS: Basophils Percent Auto 0.3 % (0-2); Eosinophils Absolute Auto 0.1 X10*3/uL (0.0-0.4); Eosinophils Percent Auto 0.5 % (0-4); Hematocrit 35.4 % (37.0-47.0); Hemoglobin 12.1 g/dl (12.0-16.0); Imm Gran Abs Auto 0.04 X10*3/uL (0.00-0.03); Imm Gran Pct Auto 0.3 % (0.0-0.4); Lymphocytes Absolute Auto 0.7 X10*3/uL (1.2-4.9); Lymphocytes Percent Auto 6.1 % (20-40); Mean Corpuscular HGB Conc 34.2 g/dl (31.0-35.0); Mean Corpuscular Hemoglobin 33.3 pg (27.0-33.0); Mean Corpuscular Volume 97.5 fL (80.0-98.0); Mean Platelet Volume 10.4 fL (9.4-12.3); Monocytes Absolute Auto 0.9 X10*3/uL (0.1-1.2); Monocytes Percent Auto 7.1 % (2-11); Neutrophils Absolute Auto 10.3 x10*3/uL (2.0-8.3); Neutrophils Percent Auto 85.7 % (45-73); Platelet Count 376 X10*3/uL (160-400); Red Blood Count 3.63 X10*6/uL (4.20-5.50); Red Cell Distribution Width 13.4 % (11.0-16.0)
[2022-09-04 06:52] LABS: COVID-19 Test Negative (Negative); IDNOW Serial# 16C4AD1C
[2022-09-04 06:53] LABS: Influenza A Negative (Negative); Influenza B2 Negative (Negative)
[2022-09-04 07:30] LABS: Alanine Aminotransferase 11 U/L (0-31); Albumin Level 3.9 g/dL (3.5-5.0); Alkaline Phosphatase 93 U/L (39-117); Anion Gap 14 (12-20); Aspartate Amino Transferase 15 U/L (5-31); Bilirubin Total 0.6 mg/dL (0.0-1.0); Blood Urea Nitrogen 8 mg/dL (9-16); Calcium 9.3 mg/dL (8.4-10.2); Carbon Dioxide 24 mmol/L (22-29); Chloride 102 mmol/L (96-108); Creatinine Clr Calc Pharmacy 91.1; Estimated Glomerular Filt Rate > 60; Glucose Random 136 mg/dL (60-115); Potassium 4.2 mmol/L (3.3-5.1); Sodium 136 mmol/L (135-145); Total Protein 6.9 g/dL (6.5-8.0)
--- NOTE | 2022-09-04 07:48 | ED_ITS ---
HPI - General Adult General Chief complaint: General Medical Stated complaint: Possible Sepsis Time Seen by Provider: 09/04/22 07:48 Source: patient Mode of arrival: ambulatory Limitations: no limitations History of Present Illness HPI narrative: 42-year-old female who presents emergency department for evaluation of headache, chills, fever, myalgias and arthralgias x5 days. Patient states that she got sick on Thursday with a fever. She states she has been taking her temperature and she has had fever as high as 102.6 degrees F. she complains of fatigue and body aches. She states that she has a headache which is not unusual for her. She describes the headache as a pressure in the frontal area of her head, headache is constant and is 7/10 at its worst. She has taken pseudoephedrine with some relief of this pain. She also complains neck pain and shoulder pain. She states that she is having fever and chills. She denied rhinorrhea, sore throat. She states she occasionally gets pleuritic chest pain. She denies shortness of breath dyspnea on exertion. She has had nausea with no vomiting. She denied diarrhea. She has noted some urinary urgency and urinary frequency but denied dysuria. She states that she did notice dark stool recently but no bloody stool. Patient states that she has had night sweats for months without having any etiology. The patient states she was seen at an urgent care clinic earlier this week and had negative COVID and flu testing. She was diagnosed with a viral illness. She states she has been taking Tylenol and ibuprofen for her fever. The patient does have Crohn's and Raynaud's disease and she is treated with Imuran and Strattera. The patient does have chronic back and states that she had a bilateral lumbar sympathetic nerve block 6 days prior, this was done in the OR by Dr. Chang. Related Data Home Medications Medication Instructions Recorded Confirmed linaclotide 145 mcg capsule 145 mcg PO DAILY 08/21/20 08/19/22 hyoscyamine sulfate 0.375 mg 1 tab PO Q12H 10/29/20 08/19/22 tablet,extended release,12 hr ustekinumab 90 mg/mL subcutaneous 45 mg subcut 12/10/21 08/19/22 syringe (Ramírezlara) azathioprine 50 mg tablet 100 mg PO TID 01/03/22 08/19/22 pantoprazole 40 mg tablet,delayed 80 mg PO DAILY 01/03/22 08/19/22 release tumeric 100 mg-radha 150 mg-olive cap PO 07/31/22 08/19/22 50 mg-oreg 150 mg-caprylate capsule norethindrone 1.5 mg-ethinyl 1 tab PO DAILY 08/19/22 08/19/22 estradiol 30 mcg(21)/iron 75 mg(7) tablet (Aurovela Fe 1.5/30 (28)) Previous Rx's Medication Instructions Recorded ascorbate calcium (vitamin C) 500 500 mg PO DAILY #90 tabs 01/03/22 mg tablet cholecalciferol (vitamin D3) 25 25 mcg PO DAILY #90 caps 01/03/22 mcg (1,000 unit) capsule blood-glucose sensor (Dexcom G6 1 ea miscellaneous Q10D 90 days #9 02/24/22 Sensor device) ea insulin glargine U-300 conc 300 11 unit (0.0367 mL) subcut DAILY 03/25/22 unit/mL (1.5 mL) subcutaneous pen 30 days #1.101 mL (Toujeo SoloStar U-300 Insulin) paroxetine HCl 20 mg tablet 20 mg PO DAILY #90 tabs 05/26/22 pen needle, diabetic 32 gauge x 1 ea miscellaneous .5 times a day 07/01/22 (BD Monica 2nd Gen Pen Needle) 30 days #150 ea gabapentin 300 mg capsule 300 mg PO TID #90 caps 07/17/22 blood-glucose transmitter (Dexcom #1 ea 07/30/22 G6 Transmitter device) ferrous sulfate 324 mg (65 mg 324 mg PO BID #180 tabs 08/22/22 iron) tablet,delayed release atorvastatin 40 mg tablet 40 mg PO DAILY #30 tabs 08/26/22 insulin pump cart,automated,BT #5 ea 08/29/22 (Omnipod 5 G6 Pods (Gen 5) subcutaneous cartridge) insulin pump cartridge,automated #1 ea 08/29/22 dose,BT with controller subcutaneous (Omnipod 5 G6 Intro Kit (Gen 5) subcutaneous cartridge with controller) Allergies Allergy/AdvReac Type Severity Reaction Status Date / Time azithromycin Allergy Unknown RASH Verified 09/01/22 12:08 cephalexin Allergy Unknown RASH Verified 09/01/22 12:08 Penicillins Allergy Unknown RASH Verified 09/01/22 12:08 Sulfa (Sulfonamide Allergy Unknown RASH Verified 09/01/22 12:08 Antibiotics) mesalamine AdvReac Unknown DOES NOT Verified 09/01/22 12:08 WORK FOR PATIENT Review of Systems Review of Systems: Yes all other systems are reviewed and are negative [facility] Past Medical History [facility] Narrative: Past surgical history: Reviewed below, patient has had no abdominal surgeries. 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 She denies tobacco and alcohol use. She denies drug use. 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), managed as type 1 [facility] (current) use of insulin Normal pelvic exam Other specified mononeuropathies Postlaminectomy syndrome of lumbar region Spondylosis of lumbar region without myelopathy or radiculopathy Vitamin D deficiency Surgical History History of hemilaminectomy Hx of colonoscopy Family History Family History Mother Tongue cancer Father Type 2 diabetes mellitus Retinopathy Neuropathy Angiopathy Blindness Renal failure Hypertension Cataract Skin cancer Paternal Uncle Substance use disorder Social History Social History Household Members: Spouse and Children Household Members Other:: , 2 sons (11. 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 Housing: House Alcohol intake: never Patient Tobacco Use Status: Never used Tobacco e-Cigarette/Vaping Use: Never Used Advance Directives: No Advance Directives Information Provided: Yes service: No Current occupational status: employed Physical Exam ED Vital Signs: Vital Signs - 24 hr 09/04/22 06:16 Temperature 98.5 F Pulse Rate 103 H Respiratory Rate 16 Blood Pressure 139/85 Pulse Oximetry 100 Oxygen Delivery Method Room Air BMI result Body Mass Index 25.0 Const General: cooperative and no acute distress Orientation/consciousness: oriented to person and oriented to place Limitations: no limitations HENMT Head: Yes normal to inspection, Yes normocephalic and Yes atraumatic Ears: external ears normal General nose exam: Normal external nose present Face and sinus: Yes normal facial exam Mouth: Normal oral and palatal mucosa present Throat: Yes posterior oropharynx normal Eyes General: appearance normal, both eyes and all related structures Pupils: Equal, round and reactive pupils present Neck Neck: Yes normal visual inspection, Yes no lymphadenopathy, Yes trachea midline and Yes supple Chest Chest palpation & inspection: normal inspection of the chest and normal palpation of entire chest wall Resp Effort & Inspection: normal respiratory effort and able to speak in complete sentences Auscultation: clear to auscultation bilaterally Cardio Rate: regular rate Rhythm: regular rhythm Heart sounds: S1 normal heart sound present, S2 normal heart sound present and no murmurs GI Inspection: Yes normal to inspection Palpation (GI): Soft to palpation, nontender and no guarding Auscultation: normal bowel sounds General: Yes no CVA tenderness Back/Spine/Pelvis Back: no CVA tenderness Skin General skin exam: no rashes or lesions noted Neuro General: oriented to person and oriented to place Cranial nerves: Yes CN's II-XII intact bilaterally and Yes Equal, round and reactive pupils present Cognition (Neuro): normal cognition Motor exam (neuro): 5/5 motor strength present throughout Extrem General: Yes normal to inspection Psych Appearance: grossly normal Speech and movement: Normal speech and movement present Affect: normal affect Attitude: cooperative Course Course Course Narrative: 42-year-old female who presents emergency department for evaluation of 5 days of fever, chills, headache, neck pain, shoulder pain, myalgias, arthralgias nausea and fatigue. The patient has had outpatient testing for COVID influenza which were negative. Vital signs were unremarkable except for an elevated pulse of 103. Patient's physical exam was normal, she had no significant sinus tenderness and no nuchal rigidity which is reassuring. I did not notice any rash on her skin. Her laboratory evaluation was unremarkable except for [place] [address] and an elevated glucose of 136. The patient's COVID in flu test were negative. At this time, I believe that the patient has a viral illness however she is on biologic agents for her Crohn's disease is possible she may have a subacute bacterial infection. Also, tick-borne illness needs to be considered. I did discuss viral infections with the patient and further testing. I did order blood cultures x2, tick-borne illness panel and respiratory pathogen panel on the patient. The patient will be discharged home was advised to take Tylenol and ibuprofen in moderation for her fever. She was given printed and verbal instructions and discharged home. Medical Decision Making Lab Data Result diagrams: 09/04/22 06:34 09/04/22 06:34 Labs: Lab Results 09/04/22 09/04/22 09/04/22 Range/Units 06:34 06:34 06:34 WBC 12.0 H (4.8-10.8) X10*3/uL RBC 3.63 L (4.20-5.50) X10*6/uL Hgb 12.1 (12.0-16.0) g/dl Hct 35.4 L (37.0-47.0) % MCV 97.5 (80.0-98.0) fL MCH 33.3 H (27.0-33.0) pg MCHC 34.2 (31.0-35.0) g/dl RDW 13.4 (11.0-16.0) % Plt Count 376 (160-400) X10*3/uL MPV 10.4 (9.4-12.3) fL Immature Gran % (Auto) 0.3 (0.0-0.4) % Neut % (Auto) 85.7 H (45-73) % Lymph % (Auto) 6.1 L (20-40) % Harmon % (Auto) 7.1 (2-11) % Eos % (Auto) 0.5 (0-4) % Baso % (Auto) 0.3 (0-2) % Lymph # (Auto) 0.7 L (1.2-4.9) X10*3/uL Harmon # (Auto) 0.9 (0.1-1.2) X10*3/uL Eos # (Auto) 0.1 (0.0-0.4) X10*3/uL Baso # (Auto) 0.0 (0.0-0.2) X10*3/uL Abs Immat Gran (auto) 0.04 H (0.00-0.03) X10*3/uL Absolute Neuts (auto) 10.3 H (2.0-8.3) x10*3/uL Absolute Nucleated RBC 0.000 (0.0-0.012) X10*3/uL Nucleated RBC % (auto) 0.0 (0.0-0.2) /100WBC Sodium 136 (135-145) mmol/L Potassium 4.2 (3.3-5.1) mmol/L Chloride 102 (96-108) mmol/L Carbon Dioxide 24 (22-29) mmol/L Anion Gap 14 (12-20) BUN 8 L (9-16) mg/dL Creatinine 0.69 (0.5-1.4) mg/dL Estim Creat Clear Calc 91.1 Estimated GFR > 60 Random Glucose 136 H (60-115) mg/dL Calcium 9.3 (8.4-10.2) mg/dL Total Bilirubin 0.6 (0.0-1.0) mg/dL AST 15 (5-31) U/L ALT 11 (0-31) U/L Alkaline Phosphatase 93 (39-117) U/L Total Protein 6.9 (6.5-8.0) g/dL Albumin 3.9 (3.5-5.0) g/dL COVID-19 ([facility]) (Negative) COVID-19 Clin Com Influenza Type A ([facility]) Negative (Negative) Influenza Type B ([facility]) Negative (Negative) Influenza A & B Note See Note 09/04/22 Range/Units 06:34 WBC (4.8-10.8) X10*3/uL RBC (4.20-5.50) X10*6/uL Hgb (12.0-16.0) g/dl Hct (37.0-47.0) % MCV (80.0-98.0) fL MCH (27.0-33.0) pg MCHC (31.0-35.0) g/dl RDW (11.0-16.0) % Plt Count (160-400) X10*3/uL MPV (9.4-12.3) fL Immature Gran % (Auto) (0.0-0.4) % Neut % (Auto) (45-73) % Lymph % (Auto) (20-40) % Harmon % (Auto) (2-11) % Eos % (Auto) (0-4) % Baso % (Auto) (0-2) % Lymph # (Auto) (1.2-4.9) X10*3/uL Harmon # (Auto) (0.1-1.2) X10*3/uL Eos # (Auto) (0.0-0.4) X10*3/uL Baso # (Auto) (0.0-0.2) X10*3/uL Abs Immat Gran (auto) (0.00-0.03) X10*3/uL Absolute Neuts (auto) (2.0-8.3) x10*3/uL Absolute Nucleated RBC (0.0-0.012) X10*3/uL Nucleated RBC % (auto) (0.0-0.2) /100WBC Sodium (135-145) mmol/L Potassium (3.3-5.1) mmol/L Chloride (96-108) mmol/L Carbon Dioxide (22-29) mmol/L Anion Gap (12-20) BUN (9-16) mg/dL Creatinine (0.5-1.4) mg/dL Estim Creat Clear Calc Estimated GFR Random Glucose (60-115) mg/dL Calcium (8.4-10.2) mg/dL Total Bilirubin (0.0-1.0) mg/dL AST (5-31) U/L ALT (0-31) U/L Alkaline Phosphatase (39-117) U/L Total Protein (6.5-8.0) g/dL Albumin (3.5-5.0) g/dL COVID-19 ([facility]) Negative (Negative) COVID-19 Clin Com See Note Influenza Type A ([facility]) (Negative) Influenza Type B ([facility]) (Negative) Influenza A & B Note Discharge Plan Discharge Clinical Impression: Viral syndrome Patient Disposition: Home, Self-Care Additional Instructions: Your examination was unremarkable. Your blood work did reveal a [place] [address] (normal is 4800-67509). This is a nonspecific elevation and goes along with an infection, possibly viral infection. I did add the following tests to your evaluation: Tick-borne illness panel, blood cultures x2 and respiratory pathogen panel. These tests will not come back today and you can check these results with your doctor or on the patient portal. The ER should contact to if the tick-borne illness panel blood cultures are positive however it is important that you follow-up with your doctor for re-evaluation in your doctor can review these tests with use well. Take ibuprofen 200 mg pills, 2 pills every 6 hours as needed for pain or fever. Take Tylenol (acetaminophen) 500 mg pills, 2 pills every 4 to 6 hours as needed for pain or fever. Follow-up with your doctor in 2 days. Please return to the emergency department if your symptoms get worse or if you develop any symptoms that are concerning to you. Prescriptions: No Action Dexcom G6 Sensor Device 1 ea miscellaneous Q10D 90 Days Qty: 9 6RF Toujeo SoloStar U-300 Insulin 300 unit/mL (1.5 mL) insulin pen 11 unit subcut DAILY 30 Days Qty: 1.101 6RF paroxetine HCl 20 mg tablet 20 mg PO DAILY Qty: 90 3RF Rx Instructions: in a/m pen needle, diabetic [BD Monica 2nd Gen Pen Needle] 32 gauge x 5/32 needle 1 ea miscellaneous .5 times a day 30 Days Qty: 150 4RF gabapentin 300 mg capsule 300 mg PO TID Qty: 90 5RF (DME) Dexcom G6 Transmitter Device See Rx Instructions .ROUTE .MEDSUPPLY Qty: 1 1RF Rx Instructions: One every 3 months ferrous sulfate 324 mg (65 mg iron) tablet,delayed release (DR/EC) 324 mg PO BID Qty: 180 3RF atorvastatin 40 mg tablet 40 mg PO DAILY Qty: 30 4RF hyoscyamine sulfate 0.375 mg tablet extended release 12 hr 1 tab PO Q12H Stelara 90 mg/mL syringe 45 mg subcut ascorbate calcium (vitamin C) 500 mg tablet 500 mg PO DAILY Qty: 90 4RF cholecalciferol (vitamin D3) 25 mcg (1,000 unit) capsule 25 mcg PO DAILY Qty: 90 3RF azathioprine 50 mg tablet 100 mg PO TID Linzess 145 mcg capsule 145 mcg PO DAILY pantoprazole 40 mg tablet,delayed release (DR/EC) 80 mg PO DAILY wmttszo-irvc-lzcub-oreg-capryl 100 mg-150 mg- 50 mg-150 mg capsule PO norethindrone-e.estradiol-iron [Aurovela Fe 1.5/30 (28)] 1.5 mg-30 mcg (21)/75 mg (7) tablet 1 tab PO DAILY (DME) Omnipod 5 G6 Pods (Gen 5) Cartridge See Rx Instructions .Route Qty: 5 0RF Rx Instructions: As directed (DME) Omnipod 5 G6 Intro Kit (Gen 5) Cartridge See Rx Instructions .Route Qty: 1 0RF Rx Instructions: As directed
[2022-09-04 08:45] VITALS: BP 114/67; PULSE 82; RESP 16; O2SAT 100
[2022-09-04 09:18] LABS: Appearance Urine Clear; Color Urine Yellow; Glucose Urine UA Negative (Negative); Leukocyte Esterase Urine Negative (Negative); Nitrite Urine Negative (Negative); PH 6.5 (5.0-9.0); Specific Gravity - Urine <= 1.005 (1.005-1.025); UMIC TRIGGER UACC YES; Urine Blood Trace (Negative); Urine Ketones Negative (Negative); Urine Protein Negative (Neg-Trace)
[2022-09-04 09:20] LABS: Bacteria Urine None Seen (None Seen); Hyaline Casts Urine 0-2 /LPF (0-2); RBC Urine 0-2 /HPF (0-2); Squamous Epithelial Cell Urine 0-2 /HPF (0-2); WBC Urine 0-5 /HPF (0-5)
[2022-09-04 10:56] LABS: Adenovirus PCR Not Detected (Not Detect.); Bordetella parapertussis PCR Not Detected (Not Detect.); Bordetella pertussis PCR Not Detected (Not Detect.); Chlamydia pneumoniae PCR Not Detected (Not Detect.); Coronavirus 229E PCR Not Detected (Not Detect.); Coronavirus HKU1 PCR Not Detected (Not Detect.); Coronavirus NL63 PCR Not Detected (Not Detect.); Coronavirus OC43 PCR Not Detected (Not Detect.); Human metapneumovirus PCR Not Detected (Not Detect.); Influenza A PCR Not Detected (Not Detect.); Influenza B PCR Not Detected (Not Detect.); Mycoplasma pneumoniae PCR Not Detected (Not Detect.); Parainfluenza 1 PCR Not Detected (Not Detect.); Parainfluenza 2 PCR Not Detected (Not Detect.); Parainfluenza 3 PCR Not Detected (Not Detect.); Parainfluenza 4 PCR Not Detected (Not Detect.); RSV PCR Not Detected (Not Detect.); Rhino/Enterovirus PCR Not Detected (Not Detect.); SARS-CoV-2 PCR Not Detected (Not Detect.)
[2022-09-10 01:11] LABS: A. Phagocytphilium DNA,RT-PCR NOT DETECTED (NOT DETECTED); Babesia Microti DNA, RT-PCR NOT DETECTED (NOT DETECTED); Borrelia Miyamotoi,DNA RT-PCR NOT DETECTED (NOT DETECTED); E.Chaffeensis DNA RT-PCR NOT DETECTED (NOT DETECTED); Lyme(Borrelia ssp)DNA RT-PCR NOT DETECTED (NOT DETECTED)
== END 2022-09-04 09:29 | disposition home or self-care (01) ==
PROVIDERS: Emergency Provider Emergency Medicine Emergency Medical Services; PCP Internal Medicine
DX: B34.9 Viral infection, unspecified (principal); R51.9 Headache, unspecified; E10.9 Type 1 diabetes mellitus without complications; E78.5 Hyperlipidemia, unspecified; K50.90 Crohn's disease, unspecified, without complications; I73.00 Raynaud's syndrome without gangrene; Z96.41 Presence of insulin pump (external) (internal); Z79.4 Long term (current) use of insulin; Z79.02 Long term (current) use of antithrombotics/antiplatelets; Z79.899 Other long term (current) drug therapy; Z20.822 Contact with and (suspected) exposure to COVID-19
CPT/HCPCS: 36415; 80053; 81001; 85025; 87040; 87502; 87633; 87635; 87798; 87801; 99283

== ENCOUNTER 2022-09-16 12:56 | Outpatient (REF) | payer OTHER, SELFPAY ==
--- NOTE | ~2022-09-16 | US_ITS ---
EXAMINATION: US VENOUS ULTRASOUND WITH DOPPLER LOWER EXTREMITY, BILATERAL CLINICAL INFORMATION: Varicose veins of right lower extremity with inflammation, rule out deep venous thrombosis COMPARISON: None. TECHNIQUE: Ultrasound of the deep veins is performed from the hip to the calf with compression sonography and color and pulse Doppler assessment. Spectral analysis with color-flow imaging is performed. FINDINGS: RIGHT: There is normal venous compression and respiratory variation and augmented flow. The visualized common femoral vein, superficial femoral vein, profunda femoral vein, popliteal vein, and the trifurcation region shows no evidence of deep venous thrombosis. There is no significant popliteal fossa cyst. LEFT: There is normal venous compression and respiratory variation and augmented flow. The visualized common femoral vein, superficial femoral vein, profunda femoral vein, popliteal vein, and the trifurcation region shows no evidence of deep venous thrombosis. There is no significant popliteal fossa cyst. If the patient's symptoms persist, followup ultrasound in 5 days 7 days might be of value to exclude proximal propagation from a non-visualized calf vein. US/US venous duplex LE BI IMPRESSION: No DVT demonstrated in the bilateral lower extremities.
== END 2022-09-16 12:57 | disposition home or self-care (01) ==
LOC: HO.US 12:56
PROVIDERS: Visit Provider Surgery Vascular Surgery
DX: I83.11 Varicose veins of right lower extremity with inflammation (principal)
CPT/HCPCS: 93970

== ENCOUNTER 2023-01-16 13:04 | Outpatient (REF) | payer OTHER, SELFPAY ==
[2023-01-16 14:05] LABS: Hematocrit 38.1 % (37.0-47.0); Hemoglobin 12.7 g/dl (12.0-16.0); Mean Corpuscular HGB Conc 33.3 g/dl (31.0-35.0); Mean Corpuscular Hemoglobin 32.6 pg (27.0-33.0); Mean Corpuscular Volume 97.9 fL (80.0-98.0); Mean Platelet Volume 11.3 fL (9.4-12.3); Platelet Count 385 X10*3/uL (160-400); Red Blood Count 3.89 X10*6/uL (4.20-5.50); Red Cell Distribution Width 13.2 % (11.0-16.0); White Blood Count 6.8 X10*3/uL (4.8-10.8)
[2023-01-16 14:52] LABS: Erythrocyte Sedimentation Rate 12 MM/HR (0-20)
[2023-01-16 16:35] LABS: Alanine Aminotransferase 8 U/L (0-31); Albumin Level 3.8 g/dL (3.5-5.0); Alkaline Phosphatase 58 U/L (39-117); Aspartate Amino Transferase 14 U/L (5-31); Bilirubin Direct < 0.2 mg/dL (0.0-0.5); Bilirubin Total 0.3 mg/dL (0.0-1.0); Total Protein 6.6 g/dL (6.5-8.0)
[2023-01-16 17:03] LABS: Lipase 17 U/L (8-78)
[2023-01-21 14:38] LABS: 6-MMPN <500 (<5700); 6-TGN 307 (235-400)
== END 2023-01-16 13:05 | disposition home or self-care (01) ==
LOC: HO.LAB 13:04
PROVIDERS: PCP Internal Medicine; Visit Provider Internal Medicine Gastroenterology
DX: K50.10 Crohn's disease of large intestine without complications (principal)
CPT/HCPCS: 36415; 80076; 80299; 82397; 83520; 83690; 85027; 85652; 86141

== ENCOUNTER 2023-02-17 07:08 | Day surgery (SDC) | payer OTHER, SELFPAY ==
--- NOTE | 2023-02-16 13:23 | HO.ANESPROP2 ---
HPI - Anesthesia Eval Consult details Narrative: 42yo F for Colonoscopy s/p lumbar block 08/2022 with MAC PMFSH Active Problems Active Problems: All Active Problems (Updated 09/05/22 @ 00:02 by Alia Silva) Abdominal pain (Acute) Raynaud's syndrome without gangrene (Acute) Varicose veins of right lower extremity with inflammation (Acute) Neuropathy (Acute) Vitamin D deficiency (Acute) Iron deficiency (Acute) Normal pelvic exam (Acute) Annual physical exam (Acute) Raynaud's disease (Acute) Palpitations (Acute) Piriformis muscle pain (Acute) 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 (Acute) MCC (current) use of insulin (Acute) 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), managed as type 1 (Acute) DDD (degenerative disc disease), lumbar (Acute) Postlaminectomy syndrome of lumbar region (Acute) Diabetes type 1, controlled (Acute) Chronic pain syndrome (Acute) Other specified mononeuropathies (Acute) Spondylosis of lumbar region without myelopathy or radiculopathy (Acute) Past Medical History Medical History (Updated 02/19/23 @ 13:35 by Emi Briceño MD) Annual physical exam Anxiety Chronic pain syndrome Crohn's disease Diabetes type 1, controlled 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 Elevated cholesterol 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), managed as type 1 [facility] (current) use of insulin Normal pelvic exam Other specified mononeuropathies Postlaminectomy syndrome of lumbar region Spondylosis of lumbar region without myelopathy or radiculopathy Vitamin D deficiency Family History Family History Mother Tongue cancer Father Type 2 diabetes mellitus Retinopathy Neuropathy Angiopathy Blindness Renal failure Hypertension Cataract Skin cancer Paternal Uncle Substance use disorder Family history of problems with anesthesia: No Surgical History Surgical History History of hemilaminectomy Hx of colonoscopy History of Problems with Anesthesia: No Social History Social History Household Members: Spouse and Children Household Members Other:: , 2 sons (11. 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 Housing: House Alcohol intake: never Patient Tobacco Use Status: Never used Tobacco e-Cigarette/Vaping Use: Never Used service: No Current occupational status: employed Cognitive needs: No Hearing needs: No Vision needs: Yes Meds Allergies Allergy/AdvReac Type Severity Reaction Status Date / Time azithromycin Allergy Unknown RASH Verified 02/19/23 12:56 cephalexin Allergy Unknown RASH Verified 02/19/23 12:56 Penicillins Allergy Unknown RASH Verified 02/19/23 12:56 Sulfa (Sulfonamide Allergy Unknown RASH Verified 02/19/23 12:56 Antibiotics) mesalamine AdvReac Unknown DOES NOT Verified 02/19/23 12:56 WORK FOR PATIENT Home Medications Medication Instructions Recorded Confirmed Last Taken Type linaclotide 145 mcg capsule 145 mcg PO DAILY 08/21/20 02/19/23 Unknown History hyoscyamine sulfate 0.375 mg 1 tab PO Q12H 10/29/20 02/19/23 Unknown History tablet,extended release,12 hr ustekinumab 90 mg/mL subcutaneous 45 mg subcut 12/10/21 02/19/23 Unknown History syringe (Stelara) tumeric 100 mg-radha 150 mg-olive cap PO 07/31/22 02/19/23 Unknown History 50 mg-oreg 150 mg-caprylate capsule norethindrone 1.5 mg-ethinyl 1 tab PO DAILY 08/19/22 02/19/23 Unknown History estradiol 30 mcg(21)/iron 75 mg(7) tablet (Aurovela Fe 1.5/30 (28)) azathioprine 50 mg tablet 100 mg PO DAILY 02/19/23 02/19/23 Unknown History pantoprazole 40 mg tablet,delayed 40 mg PO DAILY 02/19/23 02/19/23 Unknown History release Exam Exam Date and Time: February 16, 2023 1323 Pertinent Lab Results Pertinent Lab Results: Laboratory Tests 09/04/22 01/16/23 06:34 13:30 WBC 6.8 Hgb 12.7 Hct 38.1 Plt Count 385 Sodium 136 Potassium 4.2 Chloride 102 Carbon Dioxide 24 BUN 8 L Creatinine 0.69 Narrative Narrative: ECHO 2020 Conclusions: -? Essentially normal study? Assessment and Plan Assessment Anesthesia Assessment: Chart Reviewed Final Anesthetic Review Family History of Problems with Anesthesia: No History of Problems with Anesthesia: No
[2023-02-17 07:20] VITALS: BMI 24.7
[2023-02-17 07:27] LABS: UPreg QC Valid YES; Urine Pregnancy NEGATIVE (NEGATIVE)
[2023-02-17] MEDS: Lactated Ringers 1,000 ML 100 ML IVCONT (07:27)
[2023-02-17 07:32] VITALS: BP 144/83; PULSE 101; RESP 18; TEMP 36.7; O2SAT 97
[2023-02-17 07:36] LABS: Glucose, Whole Blood 93 mg/dL (60-115)
--- NOTE | 2023-02-17 08:11 | MHC.SHP ---
Pre-Procedural Eval Section A Date of Service: 02/17/23 Section B Chief Complaint: Crohn's disease of large intestine without complic Details of Present Illness: see H&P no changes Relevant Family History (Specify if Yes): No Relevant Social History: None Present Medications: see Short Stay Collaborative assessment Medical History: No relevant PMH History of Previous Operations: No relevant previous surgery Allergies: Allergies Allergy/AdvReac Type Severity Reaction Status Date / Time azithromycin Allergy Unknown RASH Verified 02/17/23 07:12 cephalexin Allergy Unknown RASH Verified 02/17/23 07:12 Penicillins Allergy Unknown RASH Verified 02/17/23 07:12 Sulfa (Sulfonamide Allergy Unknown RASH Verified 02/17/23 07:12 Antibiotics) mesalamine AdvReac Unknown DOES NOT Verified 02/17/23 07:12 WORK FOR PATIENT Review of Systems Sugical H&P ROS: Negative: Constitution, Cardiovascular, Respiratory, Neurological, Psychiatric, Hem-Onc, Allergic/Immunologic, Gastrointestinal, Genitourinary, Musculoskeletal, Integumentary, Endocrine and Eyes/Ears/Nose/Throat Exam Surgical H&P Exam: Normal: HEENT, Normal: Heart, Normal: Lungs, Normal: Extremities, Normal: Abdomen, Normal: Skin and Normal: Neurological Plan Diagnosis/Plan: Unchanged I have reviewed the history and physical and performed a pertinent physical examination on my patient. No changes have occurred unless specified. Time Spent With Patient Time: Total time managing care of this patient today ____ minutes.
--- NOTE | 2023-02-17 08:47 | HO.ANESPROP2 ---
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), managed as type 1 (Acute) DDD (degenerative disc disease), lumbar (Acute) Postlaminectomy syndrome of lumbar region (Acute) Diabetes type 1, controlled (Acute) Chronic pain syndrome (Acute) Other specified mononeuropathies (Acute) Spondylosis of lumbar region without myelopathy or radiculopathy (Acute) Past Medical History 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), managed as type 1 halfway (current) use of insulin Normal pelvic exam Other specified mononeuropathies Postlaminectomy syndrome of lumbar region Spondylosis of lumbar region without myelopathy or radiculopathy Vitamin D deficiency Functional capacity: independent ambulation Patient : No Family History Family History Mother Tongue cancer Father Type 2 diabetes mellitus Retinopathy Neuropathy Angiopathy Blindness Renal failure Hypertension Cataract Skin cancer Paternal Uncle Substance use disorder Family history of problems with anesthesia: No Surgical History Surgical History History of hemilaminectomy Hx of colonoscopy History of Problems with Anesthesia: No Social History Social History Household Members: Spouse and Children Household Members Other:: , 2 sons (11. 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 Housing: House Alcohol intake: never Patient Tobacco Use Status: Never used Tobacco e-Cigarette/Vaping Use: Never Used Are you DNR?: No Advance Directives: No Advance Directives Information Provided: Yes Nutrition Risks: No Nutritional Risk FDLMP: i am due next week service: No Current occupational status: employed Meds Allergies Allergy/AdvReac Type Severity Reaction Status Date / Time azithromycin Allergy Unknown RASH Verified 02/17/23 07:12 cephalexin Allergy Unknown RASH Verified 02/17/23 07:12 Penicillins Allergy Unknown RASH Verified 02/17/23 07:12 Sulfa (Sulfonamide Allergy Unknown RASH Verified 02/17/23 07:12 Antibiotics) mesalamine AdvReac Unknown DOES NOT Verified 02/17/23 07:12 WORK FOR PATIENT Active Medications: Current Medications Lactated Ringer's (Lr) 1,000 mls @ 100 mls/hr IVCONT .Q10H NEGRITO Last Admin: 02/17/23 07:27 Dose: 100 mls/hr Home Medications Medication Instructions Recorded Confirmed Last Taken Type linaclotide 145 mcg capsule 145 mcg PO DAILY 08/21/20 08/19/22 Unknown History hyoscyamine sulfate 0.375 mg 1 tab PO Q12H 10/29/20 08/19/22 Unknown History tablet,extended release,12 hr ustekinumab 90 mg/mL subcutaneous 45 mg subcut 12/10/21 08/19/22 Unknown History syringe (Stelara) azathioprine 50 mg tablet 100 mg PO TID 01/03/22 08/19/22 Unknown History pantoprazole 40 mg tablet,delayed 80 mg PO DAILY 01/03/22 08/19/22 Unknown History release tumeric 100 mg-radha 150 mg-olive cap PO 07/31/22 08/19/22 Unknown History 50 mg-oreg 150 mg-caprylate capsule norethindrone 1.5 mg-ethinyl 1 tab PO DAILY 08/19/22 08/19/22 Unknown History estradiol 30 mcg(21)/iron 75 mg(7) tablet (Aurovela Fe 1.5/30 (28)) gabapentin 300 mg capsule 300 mg PO TID 02/16/23 Unknown History Exam Exam Date and Time: February 17, 2023 0847 Height,Weight and Vital Signs: Height 5 ft 2 in Weight 61.235 kg Last Vital Signs Temp 98.1 F 02/17/23 07:32 Pulse 101 H 02/17/23 07:32 Resp 18 02/17/23 07:32 BP 144/83 H 02/17/23 07:32 Pulse Ox 97 02/17/23 07:32 O2 Del Method Room Air 02/17/23 07:32 Pertinent Lab Results Pertinent Lab Results: Laboratory Tests 02/17/23 02/17/23 07:15 07:32 POC Glucose 93 Urine Test NEGATIVE Airway Mallampati Class: II TM Dist: >3cm Neck ROM: Full Heart: RRR Lungs: CTA Assessment and Plan Final Anesthetic Review Family History of Problems with Anesthesia: No History of Problems with Anesthesia: No ASA Class: II Final Preanesthetic Review: Meds/Allgs Chart Reviewed, Consent Obtained/Reviewed and Anes Risks/Benef Reviewed Procedure Risk: Low Anesthetic Plan Anesthetic Plan: MAC: Disposition: Standard PACU
--- NOTE | 2023-02-17 08:57 | PM.OP ---
Brief Operative Note Date of Service: 02/17/23 Pre-op diagnosis: crohns Post-op diagnosis: same Procedure: colonoscopy Surgeon: Satinder Correa Anesthesia: MAC Was an Fourdrinier Machine Operator used for this Procedure?: No Estimated blood loss (mL): 5 Pathology: other Condition: stable Disposition: PACU
[2023-02-17 09:02] VITALS: BP 117/73; PULSE 79; RESP 16; TEMP 36.2; O2SAT 99
[2023-02-17 09:17] VITALS: BP 114/77; PULSE 68; RESP 16; TEMP 36.4; O2SAT 99
--- NOTE | 2023-02-17 09:45 | HO.POSTANES ---
Post Anesthesia Evaluation Post Anesthesia Evaluation Vital Signs: Vital Signs Temp Pulse Resp BP Pulse Ox O2 Del Method 02/17/23 09:17 97.5 F 68 16 114/77 99 Room Air 02/17/23 09:02 97.2 F 79 16 117/73 99 Room Air 02/17/23 07:32 98.1 F 101 H 18 144/83 H 97 Room Air Anesthesia: Monitored Mental Status: Awake Pain Control: Satisfactory Nausea/Vomiting: None Hydration: Adequate Anesthesia-Related Issues: No Anes. Related Issues
--- NOTE | 2023-02-17 09:47 | OP_ITS ---
DATE OF SERVICE: 02/17/2023 SURGEON: Satinder Correa MD INDICATIONS: Crohn disease, large intestine. PREOPERATIVE DIAGNOSIS: POSTOPERATIVE DIAGNOSIS: PROCEDURE PERFORMED: Colonoscopy to the terminal ileum with biopsy. ESTIMATED BLOOD LOSS: COMPLICATIONS: ANESTHESIA: Monitored anesthesia care. ASSISTANTS: SPECIMENS: DESCRIPTION OF PROCEDURE: A history and physical was performed. The risks and benefits of the procedure were explained to the patient. Informed consent was obtained. The patient was placed in the left lateral decubitus position. A digital rectal exam was performed and was found to be normal. The Olympus pediatric video colonoscope was introduced into the rectum and advanced to the cecum without difficulty. The cecum was identified by transillumination, palpation, and identification of ileocecal valve examination was performed. The scope was removed. She tolerated the procedure well and was returned to the recovery area in stable condition. FINDINGS: The terminal ileum was normal. The visualized colonic mucosa was normal except between 10 and 15 cm where there was evidence of ulceration, which was confluent with no active bleeding. Biopsies were obtained from the abnormal mucosa. This appeared basically unchanged from her last examination. Retroflexed examination was not possible due to the inflammation at this level. Multiple biopsies were obtained beginning in the terminal ileum and extending throughout the colon. No polyps were identified. The quality of the prep was good. IMPRESSION: Crohn disease, large intestine. RECOMMENDATION: 1. Follow up the biopsy results. 2. Continue Stelara. 3. Consider repeat colonoscopy in 3 years pending results of biopsies. MD MARICARMEN Adkins/ESDRAS / [id number]
== END 2023-02-17 10:07 | disposition home or self-care (01) ==
PROVIDERS: Nurse Practitioner; PCP Internal Medicine; Visit Provider Internal Medicine Gastroenterology
PROC: 0DJD8ZZ Inspection of Lower Intestinal Tract, Via Natural or Artificial Opening Endoscopic (ICD-10-PCS; CPT 45378; principal; 2023-02-17 08:10)
DX: K50.10 Crohn's disease of large intestine without complications (principal); K21.9 Gastro-esophageal reflux disease without esophagitis; E10.9 Type 1 diabetes mellitus without complications; K59.04 Chronic idiopathic constipation; E78.00 Pure hypercholesterolemia, unspecified; J30.9 Allergic rhinitis, unspecified; Z80.8 Family history of malignant neoplasm of other organs or systems; F41.1 Generalized anxiety disorder; Z79.4 Long term (current) use of insulin; Z79.624 Long term (current) use of inhibitors of nucleotide synthesis; Z79.899 Other long term (current) drug therapy; Z88.0 Allergy status to penicillin; Z88.1 Allergy status to other antibiotic agents; Z88.2 Allergy status to sulfonamides; Z86.16 Personal history of COVID-19
CPT/HCPCS: 45380; 81025; 82947; 88305

== ENCOUNTER → 2023-03-24 13:20 | Outpatient (BNV) | payer OTHER, SELFPAY | PROVIDERS: PCP Internal Medicine; Visit Provider Internal Medicine Medical Oncology | DX: D64.9 Anemia, unspecified (principal); I82.402 Acute embolism and thrombosis of unspecified deep veins of left lower extremity | CPT/HCPCS: 99204; 99214 ==

== ENCOUNTER 2023-03-26 14:28 | Outpatient (REF) | payer OTHER, SELFPAY ==
[2023-03-26 17:03] LABS: Estimated Average Glucose 114 mg/dL; Hemoglobin A1c % 5.6 %
[2023-03-26 17:14] LABS: Iron 62 mcg/dL (30-160); Lactate Dehydrogenase 196 U/L (122-220); Percent Iron Saturation 24 % (15-50); Total Iron Binding Capacity 260 mcg/dL (228-428); Unsaturated Iron Binding 198 ug/dL
[2023-03-26 17:32] LABS: Ferritin 107 ng/mL (10-250)
[2023-03-26 17:48] LABS: Folate 10.6 ng/mL (> or = 4.0); TSH reflex Free T4 0.75 uIU/mL (0.32-4.0); Vitamin B12 471 pg/mL (200-900)
== END 2023-03-26 14:29 | disposition home or self-care (01) ==
LOC: HO.HMGCLDS 14:28
PROVIDERS: Internal Medicine Medical Oncology; PCP Internal Medicine; Visit Provider Internal Medicine
DX: Z00.00 Encounter for general adult medical examination without abnormal findings (principal); E55.9 Vitamin D deficiency, unspecified; E61.1 Iron deficiency; R00.2 Palpitations; E78.5 Hyperlipidemia, unspecified; E10.9 Type 1 diabetes mellitus without complications; Z96.41 Presence of insulin pump (external) (internal)
CPT/HCPCS: 36415; 82607; 82728; 82746; 83036; 83540; 83615; 84443

== ENCOUNTER 2023-04-02 15:03 | Outpatient (REF) | payer OTHER, SELFPAY ==
--- NOTE | ~2023-04-02 | MM_ITS ---
EXAMINATION: BONE DENSITOMETRY CLINICAL INDICATION: Long-term (current) use of systemic steroids. Age 42. COMPARISON: None (current study represents initial baseline exam). TECHNIQUE: Using a [employer] DXA System (software version: 13.1) manufactured by [email or web address], dual-energy x-ray absorptiometry was performed of the lumbar spine and left hip. The images are of good technical quality. Based on ISCD (International Society for Clinical Densitometry) standards of reporting, Z-scores instead of T-scores are reported in this 42-year-old premenopausal female. Summary results are attached. FINDINGS: AP SPINE L1-L3 (excluding L4): The data of L1-L4 has been changed to exclude the L4 vertebral body, because degenerative changes at this level may cause overestimation of the bone mineral density. BMD 1.119 g/cm2, T-score -0.4, Z-score -0.3, Z-score within expected range for age. LEFT FEMUR, NECK: BMD 0.730 g/cm2, T-score -2.2, Z-score -1.6, Z-score within expected range for age. LEFT FEMUR, TOTAL: BMD 0.736 g/cm2, T-score -2.2, Z-score -1.8, Z-score within expected range for age. IDENTIFIED RISK FACTORS: Glucocorticoids (chronic), intestinal bowel disease, low calcium intake, secondary osteoporosis, type 1 diabetes. HISTORY OF FRACTURE: None listed. MEDICATIONS: Vitamin D. MM/XR DEXA axial skeleton IMPRESSION: 1. DIAGNOSIS: Based on the lowest Z-score value of -1.8 in the total femur, the patient's bone density is within the expected range for age. 2. 10-YEAR FRACTURE RISK PREDICTION, FRAX: Not performed in this perimenopausal patient. 3. Treatment Recommendations: NOF guidelines recommend consideration for treatment in postmenopausal women and men age 50 and older presenting with the following: -A hip or vertebral (clinical or morphometric) fracture. -T-score less than or equal to -2.5 at the femoral neck or spine after appropriate evaluation to exclude secondary causes. -Low bone mass at the hip or spine and a 10-year fracture probability by FRAX of greater than or equal to 3% for hip fracture or greater than or equal to 20% for major osteoporotic fracture based on the [place] adapted WHO algorithm. 4. Other Recommendations: All treatment decisions require clinical judgment and consideration of individual patient factors, including patient preferences, comorbidities, previous drug use, risk factors not captured in the FRAX model (e.g. frailty, falls, vitamin D deficiency, increased bone turnover, interval significant decline in bone density) and possible under or overestimation of fracture risk by FRAX. FUTURE SCAN RECOMMENDATION: People with diagnosed cases of osteoporosis or at high risk for fracture should have regular bone mineral density tests. For patients eligible for Medicare, routine testing is allowed once every 2 years. The testing frequency can be increased to one year for patients who have rapidly progressing disease, those who are receiving or discontinuing medical therapy to restore bone mass, or have additional risk factors.
== END 2023-04-02 15:04 | disposition home or self-care (01) ==
LOC: HO.MAMMO 15:03
PROVIDERS: PCP Internal Medicine; Visit Provider Internal Medicine
DX: Z13.820 Encounter for screening for osteoporosis (principal); Z79.52 Long term (current) use of systemic steroids
CPT/HCPCS: 77080

== ENCOUNTER 2023-04-16 06:16 | Day surgery (SDC) | payer OTHER, SELFPAY ==
[2023-04-16] VITALS (7 sets, daily range): BP systolic 109–127; BP diastolic 61–81; PULSE 66–78; RESP 16–20; TEMP 36.2–36.6; O2SAT 97–100
--- NOTE | ~2023-04-16 | CT_ITS ---
EXAMINATION: CT GUIDED BONE MARROW BIOPSY CLINICAL INDICATION: Anemia. COMPARISON: None available. TECHNIQUE: Following explaining CT fluoroscopy-guided iliac bone marrow biopsy procedure, benefits and risk, a written consent was obtained. Additionally consent was obtained for conscious sedation. Patient was placed prone on fluoroscopy table and preliminary CT imaging was obtained through the pelvis. An optimal slice was selected and markers placed along the buttock and repeat imaging was obtained. An optimal gavin was selected and marked on the skin. The marked site was cleaned and draped in usual sterile manner. 1% lidocaine was administered at the puncture site and deep into the soft tissues extending to the periosteum of left posterior iliac spine. Through a small skin incision a 16-gauge guide needle was advanced from the skin to the periosteum and through the periosteum into the bone marrow with a drill. The guide needle was removed and aspiration was performed in 2 syringes containing EDTA and heparin. Subsequently a longer coaxial was advanced through the guide needle and drilled with a hand drill and a bone marrow core biopsy was obtained. Subsequently the guide needle was removed and complete hemostasis achieved at puncture site. A sterile Band-Aid applied postprocedure. Patient tolerated procedure extremely well. Conscious sedation was administered for 15 minutes and patient monitored by IR radiologist and IR nurse. FINDINGS: On preliminary CT imaging there is no bone narrow abnormality seen. Scattered stool and gas seen throughout the colon and small bowel loops without distention. There is no free fluid. No abnormal lymph nodes seen in the pelvis or groin. CT-guided aspiration and biopsy of left iliac bone marrow was performed with a mechanical drill. Adequate sample were collected and handed to the blow down operator. CT/CT biopsy aspirate bone marrow IMPRESSION: Successful CT fluoroscopy-guided bone marrow aspiration x 2 with EDTA and heparin and bone marrow core biopsy.
--- OUTSIDE RECORDS SUMMARY | 2023-04-16 06:17 | XMS_ITS ---
Author Name Satinder Correa Jr Address [address] [place] [address] Organization [facility] Address [address] [place] [address] Care Team Providers Care Monument Setter Helper Name Role Phone Sunny Satinder Unavailable PROBLEMS Type Condition ICD9-CM Code MTT50-GR Code Onset Dates Condition Status SNOMED Code Problem Gastroesophageal reflux disease without esophagitis K21.9 Active 53925452 5 Problem Chronic idiopathic constipation K59.04 Active 09289376 Problem Crohn''s disease without complication, unspecified gastrointestinal tract location K50.90 Active 50064648 Problem Irritable bowel syndrome with constipation and diarrhea K58.2 Active 58963034 Problem Crohn's disease of colon K50.10 Active Problem Drug therapy Z79.899 Active 374987703 Problem Crohn's disease of large intestine without complications K50.10 Active 2467636 Problem Crohn's disease of large intestine with rectal bleeding K50.111 Active 5763393 Problem Irritable bowel syndrome with constipation K58.1 Active 396935912 ALLERGIES Substance Reaction Event Type Date Status Sulfa Unknown Drug Allergy Dec, Active Keflex Unknown Drug Allergy Dec, Active Penicillin Unknown Drug Allergy Dec, Active Zithromax Z-Zackary Unknown Drug Allergy Dec, Activ e Bactrim Unknown Drug Allergy Dec, Active ENCOUNTERS Encounter Location Date Diagnosis [facility] [address] [facility] [place] [address] 27 Jan, 2023 [facility] [address] [place] [id number] Jan, Crohn's disease of colon K50.10 [facility] [address] [facility] [place] [address] Jan, [facility] [address] [place] [address] [place] [address] 30 Dec, 2022 [facility] [address] [place] [address] [place] [address] 16 Dec, 2022 [facility] [address] [place] [address] 16 Dec, 2022 Crohn's disease of large intestine without complications K50.10 ; Gastroesophageal reflux disease without esophagitis K21.9 and Chronic idiopathic constipation K59.04 [facility] [address] [place] [address] Oct, [facility] [address] [place] [address] Oct, [facility] [address] [place] [address] 29 Aug, 2022 [facility] [address] [place] [address] Jun, [facility] [address] [place] [address] 28 Mar, 2022 [facility] [address] [place] [address] 24 Mar, 2022 [facility] [address] [place] [address] 16 Mar, 2022 Crohn's disease of large intestine with rectal bleeding K50.111 ; Gastroesophageal reflux disease without esophagitis K21.9 and Irritable bowel syndrome with constipation and diarrhea K58.2 [facility] [address] [place] [address] 11 Nov, 2021 [facility] [address] [place] [address] Oct, [facility] [address] [place] [address] Sep, [facility] [address] [place] 16 Sep, 2021 [facility] [address] [facility] [place] 16 Sep, 2021 Crohn's disease of large intestine with rectal bleeding K50.111 ; Chronic idiopathic constipation K59.04 and Gastroesophageal reflux disease without esophagitis K21.9 [facility] [address] [facility] [place] May, [facility] [address] [facility] [place] 08 Apr, 2021 [facility] [address] [facility] [place], [place] 28 Mar, 2021 Crohn''s disease without complication, unspecified gastrointestinal tract location K50.90 [facility] [address] [facility] [address] 18 Mar, 2021 [facility] [address] [place] [address] 17 Mar, 2021 Crohn's disease of large intestine with rectal bleeding K50.111 ; Gastroesophageal reflux disease without esophagitis K21.9 and Chronic idiopathic constipation K59.04 [facility] [address] [place] [address] 26 Jan, 2021 [facility] [address] [place] [address] 12 Jan, 2021 [facility] [address] [place] [address] Jan, [facility] [address] [place] [address] 29 Dec, 2020 [facility] [address] [place] [address] [place] Dec, [facility] [address] [place] [address] [place] Oct, [facility] [address] [facility] [place], [place] Aug, [facility] [address] [place] [address] [place] Aug, Crohn's disease of large intestine without complications K50.10 ; Gastroesophageal reflux disease without esophagitis K21.9 and Irritable bowel syndrome with constipation K58.1 [facility] [address] [place] [address] Jul, [facility] [address] [place] [address] Mar, Crohn's disease of large intestine with rectal bleeding K50.111 [facility] [address] [place] [address] February, Crohn's disease of large intestine without complications K50.10 [facility] [address] [place] [address] Dec, [facility] [address] [facility] [place] [address] Nov, [facility] [address] [facility] [place] [address] Nov, [facility] [address] [place] [address] [place] [address] Nov, [facility] [address] [place] [address] Oct, [facility] [address] [place] [address] [place] [address] Oct, [facility] [address] [place] [id number] Oct, [facility] [address] [facility] [place] [address] Oct, [facility] [address] [place] [address] Oct, [facility] [address] [place] [address] Oct, [facility] [address] [place] [address] Oct, [facility] [address] [place] [address] [address] 08 Oct, 2019 Crohn's disease of large intestine with rectal bleeding K50.111 [facility] [address] [place] [address] Sep, [facility] [address] [place] [address] Sep, Other usp (current) drug therapy Z79.899 and Crohn's disease of large intestine without complications K50.10 [facility] [address] [place] [address] Sep, [facility] [address] [place] [address] Sep, Crohn's disease of large intestine without complications K50.10 [facility] [address] [place] [address] Jun, Crohns disease of large intestine without complication K50.10 ; Chronic idiopathic constipation K59.04 and Drug therapy Z79.899 [facility] [address] [place] [address] Apr, [facility] [address] [place] [address] Apr, [facility] [address] [place] [address] Mar, [facility] [address] [place] [address] Mar, Drug therapy Z79.899 and Crohn''s disease without complication, unspecified gastrointestinal tract location K50.90 [facility] [address] [place] [address] February, Drug therapy Z79.899 and Crohn''s disease without complication, unspecified gastrointestinal tract location K50.90 [facility] [address] [place] [address] Jan, [facility] [address] [place] [address] Jan, Crohn''s disease of colon without complication K50.10 [facility] [address] [place] [address] Dec, [facility] [address] [place] [address] Dec, [facility] [address] [place] [address] Dec, Crohn's disease of large intestine without complication K50.10 and Chronic idiopathic constipation K59.04 [facility] [address] [place] [address] 14 Dec, 2018 [facility] [address] [place] [address] Nov, Crohn's disease of large intestine without complication K50.10 [facility] [address] [place] [address] Oct, [facility] [address] [facility] [place] [id number] Oct, [facility] [address] [place] [address] Sep, [facility] [address] [place] [address] Sep, Crohn's disease of large intestine without complication K50.10 [facility] [address] [facility] [address] Sep, [facility] [address] [place] [address] Aug, [facility] [address] [place] [address] Jul, [facility] [address] [place] [address] [place] [address] Jul, Crohns disease of large intestine without complication K50.10 [facility] [address] [place] [address] Jul, [facility] [address] [place] [address] February, Crohn's disease of large intestine without complication K50.10 [facility] [address] [place] [address] February, Crohn's disease of large intestine without complication K50.10 [facility] [address] [place] [address] February, [facility] [address] [place] [address] Jul, [facility] [address] [place] [address] Jul, Crohns disease of large intestine without complication K50.10 and Gastroesophageal reflux disease without esophagitis K21.9 [facility] [address] [place] [address] Jan, [facility] [address] [place] [address] Jan, [facility] [address] [place] [address] Dec, [facility] [address] [place] [address] Dec, [facility] [address] [place] [address] Dec, [facility] [address] [place] [address] 17 Dec, 2016 [facility] [address] [place] [address] 13 Dec, 2016 [facility] [address] [place] [address] 16 Nov, 2016 [facility] [address] [place] [id number] Nov, Crohns disease of large intestine without complication K50.10 and Gastroesophageal reflux disease without esophagitis K21.9 [facility] [address] [place] [address] Nov, Crohns disease of large intestine without complication K50.10 [facility] [address] [place] [address] Nov, [facility] [address] [place] [address] Oct, [facility] [address] [place] [address] Oct, Crohns disease of large intestine without complication K50.10 and Gastroesophageal reflux disease without esophagitis K21.9 [facility] [address] [place] [address] Oct, [facility] [address] [place] [address] Oct, [facility] [address] [place] [address] Jul, [facility] [address] [place] [address] Mar, [facility] [address] [facility] [place] [address] Mar, [facility] [address] [place] [address] Mar, [facility] [address] [place] [address] Mar, Crohns disease of large intestine without complication K50.10 [facility] [address] [place] [address] February, [facility] [address] [place] [address] Jan, [facility] [address] [place] [address] Jan, [facility] [address] [place] [address] Nov, [facility] [address] [place] [address] Nov, Gastroesophageal reflux disease without esophagitis K21.9 and Crohns disease of large intestine without complication K50.10 [facility] [address] [place] [address] Jul, [facility] [address] [place] [address] Jun, [facility] [address] [place] [address] May, [facility] [address] [place] [id number] Apr, [facility] [address] [place] [address] Mar, [facility] [address] [place] [address] February, [facility] [address] [place] [address] February, [facility] [address] [place] [address] Jan, Crohn's disease, large intestine 555.1 [facility] [address] [place] [address] Nov, [facility] [address] [place] [address] Oct, [facility] [address] [place] [address] Sep, [facility] [address] [place] [address] Jul, [facility] [address] [place] [address] Jul, [facility] [address] [place] [address] Jul, [facility] [address] [place] [address] Jul, Crohn's disease, large intestine 555.1 [facility] [address] [place] [address] Jun, [facility] [address] [place] [address] Apr, [facility] [address] [place] [address] Jan, Regional enteritis of large intestine 555.1 [facility] [address] [place] [address] Dec, [facility] [address] [place] [address] Dec, [facility] [address] [place] [address] Oct, [facility] [address] [place] [address] Oct, [facility] [address] [place] [address] Oct, [facility] [address] [place] [address] Oct, Crohn's disease, large intestine 555.1 and Abdominal pain 789.00 [facility] [address] [place] [address] Jan, Crohn's disease, large intestine 555.1 ; Fatigue 780.79 and Weight loss 783.21 [facility] [address] [place] [address] Dec, [facility] [address] [place] [address] Oct, [facility] [address] [place] [address] Oct, [facility] [address] [place] [address] Oct, Crohn's disease, large intestine 555.1 [facility] [address] [place] [address] Oct, [facility] [address] [place] [address] Oct, Crohn's disease, large intestine 555.1 and Abdominal pain 789.00 [facility] [address] [place] [address] Sep, [facility] [address] [place] [address] Sep, [facility] [address] [place] [address] Aug, [facility] [address] [place] [address] Aug, [facility] [address] [place] [address] Aug, Diarrhea 787.91 [facility] [address] [place] [address] Jul, [facility] [address] [place], [place] [address] [address] Jul, [facility] [address] [place] [address] Jun, [facility] [address] [place] [address] Aug, [facility] [address] [place] [address] Jul, [facility] ER [address] [place] [id number] Dec, [facility] Outpatient [address] [place] [id number] Nov, [facility] ER [address] [place] [id number] Oct, [facility] ER [address] [place] [id number] Jul, [facility] ER [address] [place] [id number] Jun, [facility] ER [address] [place] [address] [id number] Nov, [facility] ER [address] [facility] [place] [id number] Jul, [facility] [address] [facility] [place] [id number] Jan, [facility] ER [address] [facility] [place] [id number] Jul, [facility] ER [address] [facility] [place] [id number] Dec, [facility] ER [address] [place] [address] [place] [id number] Jun, [facility] ER [address] [facility] [place] [id number] Dec, [facility] Out[facility] [address] [facility] [place] [id number] Sep, [facility] ER [address] [facility] [place] [id number] Jul, IMMUNIZATIONS Vaccine Route Administration Date Status Influenza Unknown Aug 01, 2020 Administered Influenza Unknown Aug 19, 2018 Administered Influenza Unknown Aug 04, 2018 Administered Humira Unknown Aug 17, 2015 Administered SOCIAL HISTORY Never Assessed REASON FOR REFERRAL FUNCTIONAL STATUS PLAN OF CARE Activity Details VITAL SIGNS Weight 135 lbs 2023-01-08 Weight 145 lbs 2022-04-10 Weight 146 lbs 2021-10-10 Weight 144 lbs 2021-04-11 Weight 146 lbs 2020-08-29 Weight 143 lbs 2020-02-29 Weight 136 lbs 2019-11-02 Weight 140 lbs 2019-07-15 Weight 137 lbs 2019-01-12 Weight 138 lbs 2018-07-30 Weight 133 lbs 2017-08-19 Weight 125 lbs 2016-11-12 Weight 126 lbs 2016-03-26 Weight 127 lbs 2015-12-05 Weight 125 lbs 2015-02-21 Weight 125 lbs 2014-07-28 Weight 126 lbs 2013-11-09 Weight 126 lbs 2013-01-26 Weight 124 lbs 2012-11-03 Height 62 in 2023-01-08 Height 62 in 2022-04-10 Height 62 in 2021-10-10 Height 62 in 2021-04-11 Height 62 in 2020-08-29 Height 62 in 2020-02-29 Height 62 in 2019-11-02 Height 62 in 2019-07-15 Height 62 in 2019-01-12 Height 62 in 2018-07-30 Height 62 in 2017-08-19 Height 62 in 2016-11-12 Height 62 in 2016-03-26 Height 62 in 2015-12-05 Height 62 in 2015-02-21 Height 62 in 2014-07-28 Height N/A in 2013-11-09 Height N/A in 2013-01-26 Height 62 in 2012-11-03 BMI 24.69 kg/m2 2023-01-08 BMI 26.52 kg/m2 2022-04-10 BMI 26.70 kg/m2 2021-10-10 BMI 26.34 kg/m2 2021-04-11 BMI 26.70 kg/m2 2020-08-29 BMI 26.15 kg/m2 2020-02-29 BMI 24.87 kg/m2 2019-11-02 BMI 25.60 kg/m2 2019-07-15 BMI 25.05 kg/m2 2019-01-12 BMI 25.24 kg/m2 2018-07-30 BMI 24.32 kg/m2 2017-08-19 BMI 22.86 kg/m2 2016-11-12 BMI 23.04 kg/m2 2016-03-26 BMI 23.23 kg/m2 2015-12-05 BMI 22.86 kg/m2 2015-02-21 BMI 22.86 kg/m2 2014-07-28 BMI 23.04 kg/m2 2013-11-09 BMI 23.04 kg/m2 2013-01-26 BMI 22.68 kg/m2 2012-11-03 Heart Rate 80 /min 2018-07-30 Heart Rate 78 /min 2016-11-12 Heart Rate 80 /min 2013-11-09 Temperature 97.5 degrees Fahrenheit Temperature 96.9 degrees Fahrenheit Temperature 97.1 degrees Fahrenheit Temperature 98.2 degrees Fahrenheit Temperature 97.7 degrees Fahrenheit Blood pressure systolic 000 mm Hg Blood pressure diastolic 00 mm Hg 2022-12 MEDICATIONS Medication Instructions Dosage Frequency Start Date End Date Duration Status Imuran 50 Orally daily 3 tabs a day 24h Active Stelara 90 MG/ML INJECT THE CONTENTS OF 1 SYRINGE UNDER THE SKIN EVERY 8 WEEKS (STARTING 8 WEEKS AFTER INTRAVENOUS INFUSION) Active Pantoprazole Sodium 40 MG TAKE 1 TABLET BY MOUTH TWICE DAILY 30 days Active Vitamin D 1000 UNIT Orally Once a day 1 tablet 24h Active HumaLOG 100 UNIT/ML Subcutaneous once a day as directed 24h Active Hyoscyamine Sulfate ER 0.375 MG TAKE 1 TABLET BY MOUTH DAILY 30 days Active Golytely 236 GM Orally every 15 minutes as directed before colonoscopy Dec, 1 day(s) Active MiraLax (colon prep) 17 GM/SCOOP Orally begin at 5:00 p.m. the day before the procedure mixed with Gatorade or Crystal Light Dec, 1 day Active Linzess 290 MCG TAKE 1 CAPSULE BY MOUTH EVERY DAY Active Ferrous Sulfate 325 (65 Fe) MG Orally Once a day 1 tablet 24h Active Multivitamin Act sharon Atorvastatin Calcium 40 MG Orally Once a day 1 tablet 24h Active Excedrin Migraine Active Anusol-HC 25 MG Rectal Twice a day 1 suppository 12h Oct, 30 days Not-Ranjeet ng Toueroso SoloStar 300 UNIT/ML Subcutaneous daily 14units 24h Active Vitamin C 500 MG Orally Once a day 1 tablet 24h Active Loratadine 10 MG Orally Once a day 1 tablet 24h 30 day(s) Active PARoxetine HCl A ctive Gabapentin 300 MG Active PROCEDURES Procedure Date Ordered Result Body Site Pt scrn tbco id as non user January 08, 2023 COLONOSCOPY AND BIOPSY Nov 16, 2019 TOBACCO NON-USER January 12, 2019 DOC MEDS VERIFIED W/PT OR RE Aug 29, 2020 INIT HOSP-MOD CPLX January 19, 2016 No pt tbco scrn rng April 11, 2021 Doc med rsn no tbco scrn Oct 10, 2021 Pt scrn tbco id as non user April 10, 2022 INIT HOSP-MOD CPLX Nov 16, 2019 TOBACCO NON-USER Aug 29, 2020 TV 21+ Minutes February 29, 2020 COLONOSCOPY AND BIOPSY February 17, 2023 DOC RSN FOR NOT SCREEN/REC F/U HBP January 08, 2023 PREHTN/HTN BP DOC FU NOT PT NOT ELG Aug 29, 2020 DOC RSN FOR NOT SCREEN/REC F/U HBP April 10, 2022 BP SCR PRFRM RCMDD DEFIND SCR INTVL January 12, 2019 HOSP SUB DAY-LOW CPLX January 20, 2016 DOC RSN FOR NOT SCREEN/REC F/U HBP April 11, 2021 DOC RSN FOR NOT SCREEN/REC F/U HBP Oct 10, 2021 DOC MEDS VERIFIED W/PT OR RE April 10, 2022 HOSP SUB DAY-LOW CPLX Nov 16, 2019 DOC MEDS VERIFIED W/PT OR RE January 08, 2023 DOC MEDS VERIFIED W/PT OR RE January 12, 2019 DOC MEDS VERIFIED W/PT OR RE April 11, 2021 DOC MEDS VERIFIED W/PT OR RE Oct 10, 2021 RESULTS Name Result Date Reference Range Ur Preg Test 2023-02-17 Urine NEGATIVE NEGATIVE Glucose, Whole Blood 2023-02-17 Glucose, Whole Blood 93 60-115 Pathology 2023-02-17 Complete Blood Count no Diff 2023-01-16 White Blood Count 6.8 4.8-10.8 Red Blood Count 3.89 4.20-5.50 Hemoglobin 12.7 12.0-16.0 Hematocrit 38.1 37.0-47.0 Mean Corpuscular Volume 97.9 80.0 -98.0 Mean Corpuscular Hemoglobin 32.6 27.0-33.0 Mean Corpuscular HGB Conc 33.3 31 .0-35.0 Red Cell Distribution Width 13.2 11.0-16.0 Platelet Count 385 160-400 Mean Platelet Volume 11.3 9.4-12. 3 NRBC Pct Auto 0.0 0.0-0.2 NRBC Abs Auto 0.000 0.0-0.012 Erythrocyte Sedimentation Rate 2023-01-16 Erythrocyte Sedimentation Rate 12 0-20 Liver Panel 2023-01-16 Bilirubin Total 0.3 0.0-1.0 Bilirubin Direct < 0.2 0.0-0.5 Aspartate Amino Transferase 14 5-31 Alanine Aminotransferase 8 0-3 1 Total Protein 6.6 6.5-8.0 Albumin Level 3.8 3.5-5.0 Alkaline Phosphatase 58 39-117 Lipase 2023-01-16 Lipase 17 8-78 [facility] Crohn's 2023-01-16 [facility] Crohn's SEE NOTE Thiopurine Metabolites 2023-01-16 6-TGN 307 235-400 6-MMPN <500 <5700 Complete Blood Count Auto Diff 2022-04-11 White Blood Count 6.6 4.8-10.8 Red Blood Count 3.59 4.20-5.50 Hemoglobin 12.4 12.0-16.0 Hematocrit 36.1 37.0-47.0 Mean Corpuscular Volume 100.6 80.0 -98.0 Mean Corpuscular Hemoglobin 34.5 27.0-33.0 Mean Corpuscular HGB Conc 34.3 31 .0-35.0 Red Cell Distribution Width 13.6 11.0-16.0 Platelet Count 337 160-400 Mean Platelet Volume 11.2 9.4-12. 3 Neutrophils Percent Auto 62.0 45- 73 Imm Gran Pct Auto 0.3 0.0-0.4 Lymphocytes Percent Auto 26.5 20- 40 Monocytes Percent Auto 8.8 2-11 Eosinophils Percent Auto 1.8 0-4 Basophils Percent Auto 0.6 0-2 NRBC Pct Auto 0.0 0.0-0.2 Neutrophils Absolute Auto 4.1 2. 0-8.3 Imm Gran Abs Auto 0.02 0.00-0.03 Lymphocytes Absolute Auto 1.8 1. 2-4.9 Monocytes Absolute Auto 0.6 0.1- 1.2 Eosinophils Absolute Auto 0.1 0. 0-0.4 Basophils Absolute Auto 0.0 0.0- 0.2 NRBC Abs Auto 0.000 0.0-0.012 Erythrocyte Sedimentation Rate 2022-04-11 Erythrocyte Sedimentation Rate 10 0-20 Liver Panel 2022-04-11 Bilirubin Total 0.4 0.0-1.0 Bilirubin Direct 0.2 0.0-0.5 Aspartate Amino Transferase 25 5-31 Alanine Aminotransferase 18 0-3 1 Total Protein 6.8 6.5-8.0 Albumin Level 4.1 3.5-5.0 Alkaline Phosphatase 90 39-117 C Reactive Protein 2022-04-11 C Reactive Protein 0.11 < or = 0. 50 Lipase 2022-04-11 Lipase 27 8-78 [facility] Crohn's 2022-04-11 [facility] Crohn's SEE COMMENT Thiopurine Metabolites 2022-04-11 6-TGN 505 235-400 6-MMPN 527 <5700 Complete Blood Count Auto Diff 2021-04-24 White Blood Count 8.5 4.8-10.8 Red Blood Count 3.47 4.20-5.50 Hemoglobin 12.0 12.0-16.0 Hematocrit 35.3 37-47 Mean Corpuscular Volume 101.7 80-9 8 Mean Corpuscular Hemoglobin 34.6 27.0-33.0 Mean Corpuscular HGB Conc 34.0 31 .0-35.0 Red Cell Distribution Width 13.6 11.0-16.0 Platelet Count 392 160-400 Mean Platelet Volume 11.0 9.4-12. 3 Neutrophils Percent Auto 69.3 45- 73 Imm Gran Pct Auto 0.5 0.0-0.4 Lymphocytes Percent Auto 21.8 20- 40 Monocytes Percent Auto 6.9 2-11 Eosinophils Percent Auto 1.1 0-4 Basophils Percent Auto 0.4 0-2 NRBC Pct Auto 0.0 0.0-0.2 Neutrophils Absolute Auto 5.9 2. 0-8.3 Imm Gran Abs Auto 0.04 0.00-0.03 Lymphocytes Absolute Auto 1.9 1. 2-4.9 Monocytes Absolute Auto 0.6 0.1- 1.2 Eosinophils Absolute Auto 0.1 0. 0-0.4 Basophils Absolute Auto 0.0 0.0- 0.2 NRBC Abs Auto 0.000 0.0-0.012 Liver Panel 2021-04-24 Bilirubin Total 0.4 0.0-1.0 Bilirubin Direct 0.2 0.0-0.5 Aspartate Amino Transferase 13 5-31 Alanine Aminotransferase 6 0-3 1 Total Protein 6.5 6.5-8.0 Albumin Level 3.9 3.5-5.0 Alkaline Phosphatase 62 39-117 Lipase 2021-04-24 Lipase 41 8-78 Thiopurine Metabolites 2021-04-24 6-TGN 344 235-400 6-MMPN 940 <5700 CHEM 7 PROFILE 2020-05-01 NA 139 135-145 K 4.5 3.3-5.1 CL 105 96-108 CO2 27 22-29 ANION GAP 12 12-20 GLUCOSE,RANDOM 131 60-115 BUN 15 9-16 CREATININE 0.74 0.5-1.4 ESTIMATED GFR >60 CRP 2020-03-30 CRP 0.38 < OR = 0.50 CBC w DIFF 2020-03-30 WBC 5.8 4.8-10.8 RBC 3.51 4.20-5.50 HEMOGLOBIN 11.6 12.0-16.0 HEMATOCRIT 34.9 37-47 MCV 99.4 80-98 MCH 33.0 27.0-33.0 MCHC 33.2 31.0-35.0 PLATELET COUNT 347 160-400 RDW 13.4 11.0-16.0 NEUTROPHILS 53.1 45-73 LYMPHOCYTES 36.1 20-40 MONOCYTES 7.5 2-11 EOSINOPHILS 2.3 0-4 BASOPHILS 0.7 0-2 ABSOLUTE NEUTROPHIL COUNT 3.1 2. 0-8.3 ABSOLUTE LYMPHOCYTE COUNT 2.1 1. 2-4.9 ABSOLUTE MONOCYTE COUNT 0.4 0.1- 1.2 ABSOLUTE EOSINOPHIL COUNT 0.1 0. 0-0.4 ABSOLUTE BASOPHIL COUNT 0.0 0.0- 0.2 SED RATE (ESR) 2020-03-30 SED RATE 16 0-20 PROMETHEUS IBD SGI 2020-03-30 PROM IBD SGI SEE NOTE PROMETHEUS THIOPURINE METABOLITES (TPMT) 2020-03-30 PROM THIOPURINE METABOLITES SEE NOTE PROMETHEUS MONITR CROHN'S 2020-03-30 PROM MONITR CROHN'S SEE NOTE CRP 2019-11-21 CRP 0.07 < OR = 0.50 CBC w DIFF 2019-11-21 WBC 10.2 4.8-10.8 ABSOLUTE NEUTROPHIL COUNT 9.4 2. 2-7.9 RBC 3.41 4.20-5.50 HEMOGLOBIN 11.6 12.0-16.0 HEMATOCRIT 33.7 37-47 MCV 98.9 80-98 MCH 34.1 27.0-33.0 MCHC 34.5 31.0-35.0 PLATELET COUNT 472 160-400 RDW 15.0 11.0-16.0 NEUTROPHILS 92.5 45-73 LYMPHOCYTES 6.4 20-40 MONOCYTES 0.8 2-11 EOSINOPHILS 0.1 0-4 BASOPHILS 0.2 0-2 SED RATE (ESR) 2019-11-21 SED RATE 7 0-20 PROMETHEUS CROHN'S PROGNOSTIC 2019-11-21 PROM CROHN'S PROGNOSTIC SEE NOTE PROMETHEUS THIOPURINE METABOLITES (TPMT) 2019-11-21 PROM THIOPURINE METABOLITES SEE NOTE GI BIOPSY 2019-11-18 G.I. BIOPSY LIVER PROFILE 2019-10-21 PROTEIN, TOTAL 7.0 6.5-8.0 ALBUMIN 4.3 3.5-5.0 BILIRUBIN, TOTAL 0.8 0.0-1.0 BILIRUBIN, DIRECT 0.3 0.0-0.5 ALK. PHOS. 47 39-117 GOT 12 5-31 GPT 14 0-31 LIPASE 2019-10-21 LIPASE 18 8-78 CBC w/o DIFF 2019-10-21 WBC 10.3 4.8-10.8 RBC 3.97 4.20-5.50 HEMOGLOBIN 13.5 12.0-16.0 HEMATOCRIT 39.1 37-47 MCV 98.6 80-98 MCH 34.1 27.0-33.0 MCHC 34.6 31.0-35.0 PLATELET COUNT 347 160-400 RDW 13.7 11.0-16.0 PROMETHEUS THIOPURINE METABOLITES (TPMT) 2019-10-21 PROM THIOPURINE METABOLITES SEE NOTE LIVER PROFILE 2019-09-29 PROTEIN, TOTAL 7.1 6.5-8.0 ALBUMIN 4.2 3.5-5.0 BILIRUBIN, TOTAL 0.3 0.0-1.0 BILIRUBIN, DIRECT < 0.2 0.0-0.5 ALK. PHOS. 59 39-117 GOT 10 5-31 GPT 7 0-31 LIPASE 2019-09-29 LIPASE 17 8-78 CBC w/o DIFF 2019-09-29 WBC 10.4 4.8-10.8 RBC 3.66 4.20-5.50 HEMOGLOBIN 12.2 12.0-16.0 HEMATOCRIT 35.8 37-47 MCV 97.9 80-98 MCH 33.3 27.0-33.0 MCHC 34.0 31.0-35.0 PLATELET COUNT 360 160-400 RDW 13.5 11.0-16.0 PROMETHEUS THIOPURINE METABOLITES (TPMT) 2019-09-29 PROM THIOPURINE METABOLITES SEE NOTE ADALIMUMAB LEVEL ADA IBD 2019-09-29 ADALIMUMAB LEVEL IBD 28.9 () ADALIMUMAB ADA IBD <10 <10 ADALIMUMAB INTERPRETATION SEE NOTE () ADALIMUMAB COMMENT SEE NOTE () LIVER PROFILE 2019-07-12 PROTEIN, TOTAL 7.1 6.5-8.0 ALBUMIN 4.2 3.5-5.0 BILIRUBIN, TOTAL 0.3 0.0-1.0 BILIRUBIN, DIRECT < 0.2 0.0-0.5 ALK. PHOS. 63 39-117 GOT 15 5-31 GPT 6 0-31 LIPASE 2019-07-12 LIPASE 19 8-78 LIPOPROTEIN FRACTIONATION (LIPID PANEL) 2019-07-12 CHOLESTEROL 198 TRIGLYCERIDE 156 HDL 61 LDL CALCULATED 106 IRON + IBC (FE) 2019-07-12 IRON 62 30-160 IBC 394 228-428 % SATURATION 16 15-50 CBC w DIFF 2019-07-12 WBC 7.1 4.8-10.8 ABSOLUTE NEUTROPHIL COUNT 3.5 2. 2-7.9 RBC 3.66 4.20-5.50 HEMOGLOBIN 11.4 12.0-16.0 HEMATOCRIT 34.7 37-47 MCV 94.9 80-98 MCH 31.3 27.0-33.0 MCHC 33.0 31.0-35.0 PLATELET COUNT 455 160-400 RDW 13.9 11.0-16.0 NEUTROPHILS 49.6 45-73 LYMPHOCYTES 39.9 20-40 MONOCYTES 7.1 2-11 EOSINOPHILS 2.4 0-4 BASOPHILS 1.0 0-2 LDL CHOLESTEROL (DIRECT) 2019-07-12 LDL CHOLESTEROL (DIRECT) 124 <10 0 PROMETHEUS THIOPURINE METABOLITES (TPMT) 2019-07-12 PROM THIOPURINE METABOLITES SEE NOTE BASIC METABOLIC PROFILE FAST 2019-03-23 NA 141 135-145 K 4.1 3.3-5.1 CL 107 96-108 CO2 26 22-29 ANION GAP 12 12-20 FASTING BLOOD SUGAR 86 60-99 BUN 16 9-16 CREATININE 0.75 0.5-1.4 ESTIMATED GFR >60 CALCIUM 9.7 8.4-10.2 LIVER PROFILE 2019-03-23 PROTEIN, TOTAL 7.2 6.5-8.0 ALBUMIN 4.2 3.5-5.0 BILIRUBIN, TOTAL 0.4 0.0-1.0 BILIRUBIN, DIRECT 0.2 0.0-0.5 ALK. PHOS. 63 39-117 GOT 20 5-31 GPT 12 0-31 LIPASE 2019-03-23 LIPASE 22 8-78 FREE T4 (FT4) 2019-03-23 FREE T4 0.84 0.71-1.85 TSH (THYROID STIMULATING HORMONE) 2019-03-23 TSH 0.68 0.32-4.0 MICROALBUMIN, RANDOM 2019-03-23 MICALB/CRE RATIO RANDOM URINE 5.0 MICROALBUMIN, RANDOM URINE 14.0 CREATININE, RANDOM URINE 277.55 C-PEPTIDE 2019-03-23 C-PEPTIDE 0.84 0.80-3.85 DHEA-SULFATE 2019-03-23 DHEA-SULFATE 69 23-266 HYDROXYLASE AB 2019-03-23 HYDROXYLASE AB SEE NOTE () INSULIN AUTOANTIBODY 2019-03-23 INSULIN AUTOANTIBODY <0.4 <0.4 PROINSULIN 2019-03-23 PROINSULIN <4.0 < OR = 18.8 PROMETHEUS THIOPURINE METABOLITES (TPMT) 2019-03-23 PROM THIOPURINE METABOLITES SEE NOTE LIVER PROFILE 2019-02-25 PROTEIN, TOTAL 7.0 6.5-8.0 ALBUMIN 4.1 3.5-5.0 BILIRUBIN, TOTAL 0.4 0.0-1.0 BILIRUBIN, DIRECT 0.2 0.0-0.5 ALK. PHOS. 62 39-117 GOT 15 5-31 GPT 7 0-31 LIPASE 2019-02-25 LIPASE 32 8-78 CBC w DIFF 2019-02-25 WBC 8.0 4.8-10.8 ABSOLUTE NEUTROPHIL COUNT 4.6 2. 2-7.9 RBC 4.11 4.20-5.50 HEMOGLOBIN 12.1 12.0-16.0 HEMATOCRIT 37.2 37-47 MCV 90.5 80-98 MCH 29.5 27.0-33.0 MCHC 32.6 31.0-35.0 PLATELET COUNT 268 160-400 RDW 13.4 11.0-16.0 NEUTROPHILS 57.4 45-73 LYMPHOCYTES 33.4 20-40 MONOCYTES 6.5 2-11 EOSINOPHILS 1.9 0-4 BASOPHILS 0.8 0-2 ADALIMUMAB LEVEL ADA IBD 2019-01-14 ADALIMUMAB LEVEL IBD 36.0 () ADALIMUMAB ADA IBD <10 <10 ADALIMUMAB INTERPRETATION SEE NOTE () ADALIMUMAB COMMENT SEE NOTE () LIVER PROFILE 2018-12-20 PROTEIN, TOTAL 7.3 6.5-8.0 ALBUMIN 4.2 3.5-5.0 BILIRUBIN, TOTAL 0.4 0.0-1.0 BILIRUBIN, DIRECT < 0.2 0.0-0.5 ALK. PHOS. 57 39-117 GOT 15 5-31 GPT 10 0-31 LIPASE 2018-12-20 LIPASE 31 8-78 CBC w/o DIFF 2018-12-20 WBC 7.9 4.8-10.8 RBC 4.13 4.20-5.50 HEMOGLOBIN 12.6 12.0-16.0 HEMATOCRIT 37.4 37-47 MCV 90.7 80-98 MCH 30.6 27.0-33.0 MCHC 33.8 31.0-35.0 PLATELET COUNT 318 160-400 RDW 12.7 11.0-16.0 PROMETHEUS TPMT ENZYME 2018-12-20 PROM TPMT ENZYME SEE NOTE PROMETHEUS TPMT GENETICS 2018-12-20 PROM TPMT GENETICS SEE NOTE GI BIOPSY 2018-11-19 G.I. BIOPSY LIVER PROFILE 2018-10-07 PROTEIN, TOTAL 6.9 6.5-8.0 ALBUMIN 3.9 3.5-5.0 BILIRUBIN, TOTAL 0.3 0.0-1.0 BILIRUBIN, DIRECT < 0.2 0.0-0.5 ALK. PHOS. 58 39-117 GOT 17 5-31 GPT 12 0-31 CRP 2018-10-07 CRP 0.33 < OR = 0.50 CBC w DIFF 2018-10-07 WBC 11.2 4.8-10.8 ABSOLUTE NEUTROPHIL COUNT 6.9 2. 2-7.9 RBC 4.10 4.20-5.50 HEMOGLOBIN 12.2 12.0-16.0 HEMATOCRIT 37.1 37-47 MCV 90.5 80-98 MCH 29.9 27.0-33.0 MCHC 33.0 31.0-35.0 PLATELET COUNT 296 160-400 RDW 13.7 11.0-16.0 NEUTROPHILS 61.7 45-73 LYMPHOCYTES 30.2 20-40 MONOCYTES 6.1 2-11 EOSINOPHILS 1.4 0-4 BASOPHILS 0.5 0-2 SED RATE (ESR) 2018-10-07 SED RATE 22 0-20 LIVER PROFILE 2018-07-30 PROTEIN, TOTAL 7.5 6.5-8.0 ALBUMIN 4.2 3.5-5.0 BILIRUBIN, TOTAL 0.4 0.0-1.0 BILIRUBIN, DIRECT 0.2 0.0-0.5 ALK. PHOS. 52 39-117 GOT 17 5-31 GPT 9 0-31 LIPASE 2018-07-30 LIPASE 24 8-78 CBC w/o DIFF 2018-07-30 WBC 8.2 4.8-10.8 RBC 4.27 4.20-5.50 HEMOGLOBIN 12.6 12.0-16.0 HEMATOCRIT 38.7 37-47 MCV 90.7 80-98 MCH 29.4 27.0-33.0 MCHC 32.4 31.0-35.0 PLATELET COUNT 331 160-400 RDW 12.6 11.0-16.0 CHEM 7 PROFILE 2018-03-31 NA 138 135-145 K 4.6 3.3-5.1 CL 107 96-108 CO2 21 22-29 ANION GAP 15 12-20 GLUCOSE,RANDOM 88 60-115 BUN 14 9-16 CREATININE 0.69 0.5-1.4 ESTIMATED GFR >60 LIVER PROFILE 2018-03-31 PROTEIN, TOTAL 7.2 6.5-8.0 ALBUMIN 3.9 3.5-5.0 BILIRUBIN, TOTAL 0.4 0.0-1.0 BILIRUBIN, DIRECT < 0.2 0.0-0.5 ALK. PHOS. 64 39-117 GOT 17 5-31 GPT 9 0-31 LIPASE 2018-03-31 LIPASE 22 8-78 CBC w DIFF 2018-03-31 WBC 9.3 4.8-10.8 ABSOLUTE NEUTROPHIL COUNT 5.0 2. 2-7.9 RBC 3.80 4.20-5.50 HEMOGLOBIN 12.0 12.0-16.0 HEMATOCRIT 34.2 37-47 MCV 89.9 80-98 MCH 31.5 27.0-33.0 MCHC 35.1 31.0-35.0 PLATELET COUNT 350 160-400 RDW 12.8 11.0-16.0 NEUTROPHILS 54.1 45-73 LYMPHOCYTES 35.4 20-40 MONOCYTES 6.8 2-11 EOSINOPHILS 2.7 0-4 BASOPHILS 0.9 0-2 GI BIOPSY 2016-12-05 G.I. BIOPSY GI BIOPSY 2015-05-18 G.I. BIOPSY LIVER PROFILE 2014-08-02 PROTEIN, TOTAL 6.8 6.5-8.0 ALBUMIN 4.1 3.5-5.0 BILIRUBIN, TOTAL 0.2 0.0-1.0 BILIRUBIN, DIRECT < 0.2 0.0-0.5 ALK. PHOS. 50 39-117 GOT 13 <3-31 GPT 7 <6-31 AMYLASE 2014-08-02 AMYLASE 56 28-100 CBC w DIFF 2014-08-02 WBC 10.2 4.8-10.8 ABSOLUTE NEUTROPHIL COUNT 7.4 2. 2-7.9 RBC 4.16 4.20-5.50 HEMOGLOBIN 12.4 12.0-16.0 HEMATOCRIT 37.7 37-47 MCV 90.9 80-98 MCH 29.8 27.0-33.0 MCHC 32.7 31.0-35.0 PLATELET COUNT 368 160-400 RDW 12.7 11.0-16.0 NEUTROPHILS 73.1 45-73 LYMPHOCYTES 19.4 20-40 MONOCYTES 6.3 2-11 EOSINOPHILS 0.6 0-4 BASOPHILS 0.7 0-2 TSH REFLEX FREE T4 2014-08-02 TSH 1.91 0.32-4.0 CBC w DIFF 2014-02-02 WBC 9.2 4.8-10.8 ABSOLUTE NEUTROPHIL COUNT 6.1 2. 2-7.9 RBC 4.15 4.20-5.50 HEMOGLOBIN 12.3 12.0-16.0 HEMATOCRIT 35.9 37-47 MCV 86.6 80-98 MCH 29.7 27.0-33.0 MCHC 34.3 31.0-35.0 PLATELET COUNT 279 160-400 RDW 13.8 11.0-16.0 NEUTROPHILS 66.2 45-73 LYMPHOCYTES 25.8 20-40 MONOCYTES 6.3 2-11 EOSINOPHILS 1.1 0-4 BASOPHILS 0.6 0-2 LIVER PROFILE 2013-11-09 PROTEIN, TOTAL 7.1 6.5-8.0 ALBUMIN 4.2 3.5-5.0 BILIRUBIN, TOTAL 0.3 0.0-1.0 BILIRUBIN, DIRECT < 0.2 0.0-0.5 ALK. PHOS. 59 39-117 GOT 14 <3-31 GPT 7 <6-31 TSH (THYROID STIMULATING HORMONE) 2013-11-09 TSH 1.10 0.32-4.0 B12 2013-11-09 B12 251 200-900 FOLATE 2013-11-09 FOLATE 15.3 >OR = 4.0 CBC w/o DIFF 2013-11-09 WBC 9.1 4.8-10.8 RBC 4.25 4.20-5.50 HEMOGLOBIN 12.2 12.0-16.0 HEMATOCRIT 36.9 37-47 MCV 86.8 80-98 MCH 28.6 27.0-33.0 MCHC 32.9 31.0-35.0 PLATELET COUNT 331 160-400 RDW 12.6 11.0-16.0 TSH (THYROID STIMULATING HORMONE) 2013-01-31 TSH 0.64 0.32-4.0 CT ABD & PELVIS WITH CONTRAST 2012-11-01 CLOSTRIDIUM DIFF TOXIN A&B ( C DIFF) 2012-09-07 CLOSTRIDIUM DIFF TOXIN A&B NEGATIVE N EGATIVE OVA & PARASITES (O&P) 2012-09-07 OVA & PARASITES SEE NOTE () CULTURE, STOOL 2012-09-07 CULTURE, STOOL STOOL CULTURE RESULT CULTURE, STOOL No Salmonella, Shige lla, Campylobacter isolated. CULTURE, STOOL No Sorbitol-neg E. c ilia isolated. CULTURE, STOOL Contact lab if other pathogens are suspected. CULTURE, STOOL REASON FOR VISIT linzess increase? pa for stelara(approved), crohn's large intestine, labs, labs, bowel prep, Patient presents today for crohn's, stelera, covid , Patient presents today for crohn's, refill hyocyamineSulfate ER 0.375, pantoprazole refill, labs, azathioprine/waiting on pt call back, Patient presentstoday for crohn's, ? on , COVID POSITIVE , stelara f/u of previous message, Stelara/ fyi update, Patient presents today for crohn's, f/u on the test to monitor Crohn's disease, labs, not feeling well, FMLA addendum, Patient presents today for crohn's, crohn's, meds, gas, gurgling and loose stools, Still isnt feeling well, refill, reaction from stelara injection, Patient presents today for crohn's, Linzess RX, bleeding has started again, patient presents today for crohn's, crohn's, Stelara, ? onthe Prednisone, fyi update, Crohn's disease/Stelara, patient has questions/patient called back and update, INCREASE OF IMURAN, crohn's disease, Up date-Feeling no better, Not any better, labs,Crohn's, FMLA paperwork/update on stelara, Patient presents today for crohn's, having flairs still, labs in3 weeks, Flair/trush, crohn flair up , Patient presents today for 6 month follow up for Crohns, Patient received a note that her Humira was denied., Humira, Humira PA weekly dosing, RE: Two pills, Linzess, Humira, labs, Linzess PA, Patient presents today for starting on Imuran, Humira, RE: Humira , RE: Path , Crohn's, Worse over the weekend, crohns flair up , Having some issues, RE: Prednisone, YEARLY, Patient presents today for crohn's disease, Put on one year OV follow up, CT/labs, stomach distended , Humira, Miralax prep, PATIENT PRESENTS TODAY FOR crohn's disease , refill, headache, gi bleeding, ? on Humira Injection, RE: [place] , Never got her Humira until today, Crohn's flair up, Pt having Inflamation,pressure,spasm's,bloating & abd pain, ? on changing her meds, GERD, Chron's, Needs RX for Colyte, Prednisone, call back, PATIENT PRESENTS TODAY WITH CROHNS, crohns symptoms, Crohn's flair up, Humira, having some bowel issues, Clovis PA, Put on one year OV follow up, Follow up, Clovis, crohn's, Has questions about Humira, PUT ONE ONE YEAR OV RECALL, reflux, humira injection, has questions, flare ups since stopping balsalazide, Crohn's, Humira, Humira, Humira PA, follow up humira , enlarged lymph node neck, Humira, humeria, Humira, Cimzia not covered, Staring Cimzia, Discuss Humira, FMLA, wondering about a biologic, Crohns flair up, Needs jury duty letter , refill, med que stion, Looking for Rx Bentyl, Put on one year OV follow up, follow up for colitis, f/u, been off prednisone, RE: Prednisone, thrush on the tongue, colonoscopy 12-13-2010, Inflammatory bowel disease, having a flare up, Symptoms, Prednisone Dose, still having issues, refill, would like a call back, tongue is swelling and has white spots, ?flare up of Crohn's Insurance Providers Health Insurance Type Health Plan Insurance Address Health Plan Insurance Phone Health Plan Insurance Name Health Plan Coverage Dates Member ID Patient Relationship to Subscriber Patient Address Patient Phone Patient Name Patient Date of Subscriber ID Subscriber Name Subscriber Date of Group No [employer] [place] [address] [address] [facility] [id number] [employer] [place] [place] self JUDY GRAY [id number] [employer] [place] [address] [address] [facility] [address] [employer] [place] self JUDY GRAY [id number] [facility] [address] [facility] [place] [address] [facility] self JUDY ISAAC [id number] [employer] [address] [address] [facility] [id number] [employer] self JUDY ISAAC [id number]
[2023-04-16 06:56] LABS: Glucose, Whole Blood 104 mg/dL (60-115); MANUAL DIFF FLAG NO
[2023-04-16 07:04] LABS: Basophils Percent Auto 0.5 % (0-2); Eosinophils Absolute Auto 0.2 X10*3/uL (0.0-0.4); Eosinophils Percent Auto 3.4 % (0-4); Hemoglobin 12.7 g/dl (12.0-16.0); Imm Gran Abs Auto 0.02 X10*3/uL (0.00-0.03); Imm Gran Pct Auto 0.3 % (0.0-0.4); Lymphocytes Absolute Auto 1.5 X10*3/uL (1.2-4.9); Lymphocytes Percent Auto 23.5 % (20-40); Mean Corpuscular HGB Conc 33.4 g/dl (31.0-35.0); Mean Corpuscular Hemoglobin 33.4 pg (27.0-33.0); Mean Platelet Volume 10.8 fL (9.4-12.3); Monocytes Absolute Auto 0.6 X10*3/uL (0.1-1.2); Monocytes Percent Auto 8.4 % (2-11); Neutrophils Absolute Auto 4.2 x10*3/uL (2.0-8.3); Neutrophils Percent Auto 63.9 % (45-73); Platelet Count 372 X10*3/uL (160-400); Red Cell Distribution Width 13.2 % (11.0-16.0); White Blood Count 6.5 X10*3/uL (4.8-10.8)
[2023-04-16 07:12] LABS: INTERNATIONAL NORM RATIO 0.9 (0.9-1.1); Prothrombin Time 10.8 SEC (10.0-13.1)
[2023-04-16 07:15] LABS: Partial Thromboplastin Time 26.6 SEC (26.0-36.4)
[2023-04-16 09:34] LABS: Bone Marrow SEE SEPARATE REPORT
[2023-04-16] MEDS: Acetaminophen 325 MG TABLET 650 MG PO (09:42)
== END 2023-04-16 10:51 | disposition home or self-care (01) ==
LOC: HO.SSS 06:16
PROVIDERS: Pathology Anatomic Pathology & Clinical Pathology; Radiology Diagnostic Radiology; PCP Internal Medicine; Visit Provider Internal Medicine Medical Oncology
PROC: (CPT 38221; principal; 2023-04-16 07:30)
DX: D64.9 Anemia, unspecified (principal); E61.1 Iron deficiency; K50.90 Crohn's disease, unspecified, without complications; G89.4 Chronic pain syndrome; E10.9 Type 1 diabetes mellitus without complications; Z79.4 Long term (current) use of insulin; K21.9 Gastro-esophageal reflux disease without esophagitis; R53.83 Other fatigue; R61 Generalized hyperhidrosis; E55.9 Vitamin D deficiency, unspecified; E78.5 Hyperlipidemia, unspecified; I73.00 Raynaud's syndrome without gangrene; M47.816 Spondylosis without myelopathy or radiculopathy, lumbar region; M96.1 Postlaminectomy syndrome, not elsewhere classified; F41.1 Generalized anxiety disorder; F32.A Depression, unspecified; Z79.69 Long term (current) use of other immunomodulators and immunosuppressants; Z79.899 Other long term (current) drug therapy; Z88.0 Allergy status to penicillin; Z88.1 Allergy status to other antibiotic agents; Z88.2 Allergy status to sulfonamides
CPT/HCPCS: 36415; 38222; 82947; 85025; 85610; 85730; 88184; 88185; 88237; 88264; 88305; 88311; 88313; 88374; 99152; J1642; J2250; J3010

== ENCOUNTER → 2023-04-23 08:11 | Outpatient (BNVA) | payer OTHER, SELFPAY | PROVIDERS: PCP Internal Medicine; Visit Provider Internal Medicine Endocrinology, Diabetes & Metabolism | DX: E13.9 Other specified diabetes mellitus without complications (principal); Z79.4 Long term (current) use of insulin | CPT/HCPCS: 82947 ==

== ENCOUNTER 2023-05-12 13:05 | Outpatient (AMB) | payer OTHER, SELFPAY ==
--- OUTSIDE RECORDS SUMMARY | 2023-05-12 13:09 | XMS_ITS ---
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 Name Role Phone Sunny Satinder Unavailable PROBLEMS Type Condition ICD9-CM Code [id number] Code Onset Dates Condition Status SNOMED Code Problem Gastroesophageal reflux disease without esophagitis K21.9 Active 04540717 5 Problem Chronic idiopathic constipation K59.04 Active 52022593 Problem Crohn''s disease without complication, unspecified gastrointestinal tract location K50.90 Active 31049659 Problem Irritable bowel syndrome with constipation and diarrhea K58.2 Active 96512583 Problem Crohn's disease of colon K50.10 Active Problem Drug therapy Z79.899 Active 383349119 Problem Crohn's disease of large intestine without complications K50.10 Active 3513029 Problem Crohn's disease of large intestine with rectal bleeding K50.111 Active 9896195 Problem Irritable bowel syndrome with constipation K58.1 Active [id number] ALLERGIES Substance Reaction Event Type Date Status Sulfa Unknown Drug Allergy Dec, Active Keflex Unknown Drug Allergy Dec, Active Penicillin Unknown Drug Allergy Dec, Active Zithromax Z-Zackary Unknown Drug Allergy Dec, Activ e Bactrim Unknown Drug Allergy Dec, Active ENCOUNTERS Encounter Location Date Diagnosis [facility] [address] [facility] [address] 27 Jan, 2023 [facility] [place] [address] [place] [id number] Jan, Crohn's disease of colon K50.10 [facility] [address] [facility] [address] Jan, [facility] [address] [place] [address] [place] [address] 30 Dec, 2022 [facility] [address] [place] [address] [place] [address] 16 Dec, 2022 [facility] [address] [place] [address] 16 Dec, 2022 Crohn's disease of large intestine without complications K50.10 ; Gastroesophageal reflux disease without esophagitis K21.9 and Chronic idiopathic constipation K59.04 [facility] [address] [place] [address] Oct, [facility] [address] [place] [address] Oct, [facility] [address] [place] [address] 29 Aug, 2022 [facility] [address] [place] [address] Jun, [facility] [address] [place] [address] 28 Mar, 2022 [facility] [address] [place] [address] 24 Mar, 2022 [facility] [address] [place] [address] 16 Mar, 2022 Crohn's disease of large intestine with rectal bleeding K50.111 ; Gastroesophageal reflux disease without esophagitis K21.9 and Irritable bowel syndrome with constipation and diarrhea K58.2 [facility] [address] [place] [address] 11 Nov, 2021 [facility] [address] [place] [address] Oct, [facility] [address] [place] [address] Sep, [facility] [address] [place] 16 Sep, 2021 [facility] [address] [facility] [place] 16 Sep, 2021 Crohn's disease of large intestine with rectal bleeding K50.111 ; Chronic idiopathic constipation K59.04 and Gastroesophageal reflux disease without esophagitis K21.9 [facility] [address] [facility] [place], [place] May, [facility] [address] [facility] [place] 08 Apr, 2021 [facility] [address] [facility] [place], [place] 28 Mar, 2021 Crohn''s disease without complication, unspecified gastrointestinal tract location K50.90 [facility] [address] [facility] [address] 18 Mar, 2021 [facility] [address] [place], [place] [address] 17 Mar, 2021 Crohn's disease of large intestine with rectal bleeding K50.111 ; Gastroesophageal reflux disease without esophagitis K21.9 and Chronic idiopathic constipation K59.04 [facility] [address] [place] [address] 26 Jan, 2021 [facility] [address] [place] [address] 12 Jan, 2021 [facility] [address] [place] [address] Jan, [facility] [address] [place] [address] 29 Dec, 2020 [facility] [address] [place] [address] Dec, [facility] [address] [place] [address] Oct, [facility] [address] [facility] [place], [place] Aug, [facility] [address] [place] [address] [place] Aug, Crohn's disease of large intestine without complications K50.10 ; Gastroesophageal reflux disease without esophagitis K21.9 and Irritable bowel syndrome with constipation K58.1 [facility] [address] [place] [address] Jul, [facility] [address] [place] [address] Mar, Crohn's disease of large intestine with rectal bleeding K50.111 [facility] [address] [place] [address] February, Crohn's disease of large intestine without complications K50.10 [facility] [address] [place] [address] Dec, [facility] [address] [facility] [address] Nov, [facility] [address] [facility] [address] Nov, [facility] [address] [place] [address] [place] [address] Nov, [facility] [address] [place] [address] Oct, [facility] [address] [place] [address] [place] [address] Oct, [facility] [place] [address] [place] [id number] Oct, [facility] [address] [facility] [address] Oct, [facility] [address] [place] [address] Oct, [facility] [address] [place] [address] Oct, [facility] [address] [place] [address] Oct, [facility] [address] [place] [address] [address] 08 Oct, 2019 Crohn's disease of large intestine with rectal bleeding K50.111 [facility] [address] [place] [address] Sep, [facility] [address] [place] [address] Sep, Other halfway (current) drug therapy Z79.899 and Crohn's disease of large intestine without complications K50.10 [facility] [address] [place] [address] Sep, [facility] [address] [place] [address] Sep, Crohn's disease of large intestine without complications K50.10 [facility] [address] [place] [address] Jun, Crohns disease of large intestine without complication K50.10 ; Chronic idiopathic constipation K59.04 and Drug therapy Z79.899 [facility] [address] [place] [address] Apr, [facility] [address] [place] [address] Apr, [facility] [address] [place] [address] Mar, [facility] [address] [place] [address] Mar, Drug therapy Z79.899 and Crohn''s disease without complication, unspecified gastrointestinal tract location K50.90 [facility] [address] [place] [address] February, Drug therapy Z79.899 and Crohn''s disease without complication, unspecified gastrointestinal tract location K50.90 [facility] [address] [place] [address] Jan, [facility] [address] [place] [address] Jan, Crohn''s disease of colon without complication K50.10 [facility] [address] [place] [address] Dec, [facility] [address] [place] [address] Dec, [facility] [address] [place] [address] Dec, Crohn's disease of large intestine without complication K50.10 and Chronic idiopathic constipation K59.04 [facility] [address] [place] [address] 14 Dec, 2018 [facility] [address] [place] [address] Nov, Crohn's disease of large intestine without complication K50.10 [facility] [address] [place] [address] Oct, [facility] [place] [address] [facility] [place] [id number] Oct, [facility] [address] [place] [address] Sep, [facility] [address] [place] [address] Sep, Crohn's disease of large intestine without complication K50.10 [facility] [address] [facility] [address] Sep, [facility] [address] [place] [address] Aug, [facility] [address] [place] [address] Jul, [facility] [address] [place] [address] [place] [address] Jul, Crohns disease of large intestine without complication K50.10 [facility] [address] [place] [address] Jul, [facility] [address] [place] [address] February, Crohn's disease of large intestine without complication K50.10 [facility] [address] [place] [address] February, Crohn's disease of large intestine without complication K50.10 [facility] [address] [place] [address] February, [facility] [address] [place] [address] Jul, [facility] [address] [place] [address] Jul, Crohns disease of large intestine without complication K50.10 and Gastroesophageal reflux disease without esophagitis K21.9 [facility] [address] [place] [address] Jan, [facility] [address] [place] [address] Jan, [facility] [address] [place] [address] Dec, [facility] [address] [place] [address] Dec, [facility] [address] [place] [address] Dec, [facility] [address] [place] [address] 17 Dec, 2016 [facility] [address] [place] [address] 13 Dec, 2016 [facility] [address] [place] [address] 16 Nov, 2016 [facility] [place] [address] [place] [id number] Nov, Crohns disease of large intestine without complication K50.10 and Gastroesophageal reflux disease without esophagitis K21.9 [facility] [address] [place] [address] Nov, Crohns disease of large intestine without complication K50.10 [facility] [address] [place] [address] Nov, [facility] [address] [place] [address] Oct, [facility] [address] [place] [address] Oct, Crohns disease of large intestine without complication K50.10 and Gastroesophageal reflux disease without esophagitis K21.9 [facility] [address] [place] [address] Oct, [facility] [address] [place] [address] Oct, [facility] [address] [place] [address] Jul, [facility] [address] [place] [address] Mar, [facility] [address] [place] [address] Mar, [facility] [address] [place] [address] Mar, [facility] [address] [place] [address] Mar, Crohns disease of large intestine without complication K50.10 [facility] [address] [place] [address] February, [facility] [address] [place] [address] Jan, [facility] [address] [place] [address] Jan, [facility] [address] [place] [address] Nov, [facility] [address] [place] [address] Nov, Gastroesophageal reflux disease without esophagitis K21.9 and Crohns disease of large intestine without complication K50.10 [facility] [address] [place] [address] Jul, [facility] [address] [place] [address] Jun, [facility] [address] [place] [address] May, [facility] [place] [address] [place] [id number] Apr, [facility] [address] [place] [address] Mar, [facility] [address] [place] [address] February, [facility] [address] [place] [address] February, [facility] [address] [place] [address] Jan, Crohn's disease, large intestine 555.1 [facility] [address] [place] [address] Nov, [facility] [address] [place] [address] Oct, [facility] [address] [place] [address] Sep, [facility] [address] [place] [address] Jul, [facility] [address] [place] [address] Jul, [facility] [address] [place] [address] Jul, [facility] [address] [place] [address] Jul, Crohn's disease, large intestine 555.1 [facility] [address] [place] [address] Jun, [facility] [address] [place] [address] Apr, [facility] [address] [place] [address] Jan, Regional enteritis of large intestine 555.1 [facility] [address] [place] [address] Dec, [facility] [address] [place] [address] Dec, [facility] [address] [place] [address] Oct, [facility] [address] [place] [address] Oct, [facility] [address] [place] [address] Oct, [facility] [address] [place] [address] Oct, Crohn's disease, large intestine 555.1 and Abdominal pain 789.00 [facility] [address] [place] [address] Jan, Crohn's disease, large intestine 555.1 ; Fatigue 780.79 and Weight loss 783.21 [facility] [address] [place] [address] Dec, [facility] [address] [place] [address] Oct, [facility] [address] [place] [address] Oct, [facility] [address] [place] [address] Oct, Crohn's disease, large intestine 555.1 [facility] [address] [place] [address] Oct, [facility] [address] [place] [address] Oct, Crohn's disease, large intestine 555.1 and Abdominal pain 789.00 [facility] [address] [place] [address] Sep, [facility] [address] [place] [address] Sep, [facility] [address] [place] [address] Aug, [facility] [address] [place] [address] Aug, [facility] [address] [place] [address] Aug, Diarrhea 787.91 [facility] [address] [place] [address] Jul, [facility] [address] [place] [address] [address] Jul, [facility] [address] [place] [address] Jun, [facility] [address] [place] [address] Aug, [facility] [address] [place] [address] Jul, [facility] [place] [address] [place] [id number] Dec, [facility] Outpatient [address] [place] [id number] Nov, [facility] ER [address] [id number] Oct, [facility] ER [address] [place] [id number] Jul, [facility] ER [address] [place] [id number] Jun, [facility] ER [address] [place] [address] [id number] Nov, [facility] ER [address] [facility] [place] [id number] Jul, [facility] [address] [facility] [place] [id number] Jan, [facility] ER [address] [facility] [place] [id number] Jul, [facility] [address] [facility] [place] [id number] Dec, [facility] ER [address] [place] [address] [place] [id number] Jun, [facility] ER [address] [facility] [place] [id number] Dec, [facility] Outpatient [address] [facility] [place] [id number] Sep, [facility] ER [address] [facility] [place] [id number] Jul, IMMUNIZATIONS Vaccine Route Administration Date Status [...] PROCEDURES Procedure Date Ordered Result Body Site TOBACCO NON-USER January 12, 2019 INIT HOSP-MOD CPLX Nov 16, 2019 No pt tbco scrn rng April 11, 2021 Doc med rsn no tbco scrn Oct 10, 2021 DOC MEDS VERIFIED W/PT OR RE January 12, 2019 Pt scrn tbco id as non user April 10, 2022 TOBACCO NON-USER Aug 29, 2020 Pt scrn tbco id as non user January 08, 2023 HOSP SUB DAY-LOW CPLX January 20, 2016 COLONOSCOPY AND BIOPSY Nov 16, 2019 DOC RSN FOR NOT SCREEN/REC F/U HBP January 08, 2023 PREHTN/HTN BP DOC FU NOT PT NOT ELG Aug 29, 2020 TV 21+ Minutes February 29, 2020 DOC RSN FOR NOT SCREEN/REC F/U HBP April 10, 2022 INIT HOSP-MOD CPLX January 19, 2016 BP SCR PRFRM RCMDD DEFIND SCR INTVL January 12, 2019 DOC RSN FOR NOT SCREEN/REC F/U HBP April 11, 2021 DOC RSN FOR NOT SCREEN/REC F/U HBP Oct 10, 2021 HOSP SUB DAY-LOW CPLX Nov 16, 2019 DOC MEDS VERIFIED W/PT OR RE January 08, 2023 DOC MEDS VERIFIED W/PT OR RE Aug 29, 2020 COLONOSCOPY AND BIOPSY February 17, 2023 DOC MEDS VERIFIED W/PT OR RE April 11, 2021 DOC MEDS VERIFIED W/PT OR RE Oct 10, 2021 DOC MEDS VERIFIED W/PT OR RE April 10, 2022 RESULTS Name Result Date Reference Range Ur [...] ID Subscriber Name Subscriber Date of Group [facility] [address] [facility] [place] [address] [facility] self JUDY GRAY [id number] [employer] [place] [address] [address] [facility] [address] [employer] [place] self JUDY GRAY [id number] U[employer] [address] [address] [facility] [address] [employer] self JUDY GRAY [id number] [employer] [place] [address] [address] [facility] [address] [employer] [place] self JUDY GRAY [id number]
--- NOTE | 2023-05-12 13:50 | AM.OFFWIN_ITS ---
Intake Vital Signs 05/12/23 13:53 BP 110/66 Blood Pressure Location Lt brachial Position Sitting Pulse 122 H Pulse Source Pulse Oximeter Temp 101.5 F H Temp Source Oral Pulse Oximetry (%) 98 Oxygen Delivery Method Room Air Intake Visit Reasons: EP fever, immunosuppress(lobby,masked) Intake Note: Patient here for fevers, bodyaches, extreme fatigue and headache which started around 1am on thursday. Patient Tobacco Use Status: Never used Tobacco Allergies cephalexin Allergy (Unknown, Verified 05/12/23 14:29) RASH Penicillins Allergy (Unknown, Verified 05/12/23 14:29) RASH Sulfa (Sulfonamide Antibiotics) Allergy (Unknown, Verified 05/12/23 14:29) RASH Medication List - Last Reconciled 05/12/23 by Deuce Syed MD ascorbate calcium (vitamin C) 500 mg PO DAILY atorvastatin 40 mg PO DAILY azathioprine 100 mg PO DAILY blood-glucose meter,continuous (Dexcom G7 Unloading Checker) As directed blood-glucose sensor (Dexcom G7 Sensor device) As directed change every 10 days cholecalciferol (vitamin D3) 25 mcg PO DAILY ferrous sulfate 324 mg PO BID gabapentin 600 mg PO TID 30 days gabapentin 300 mg PO TID 30 days hyoscyamine sulfate ER 1 tab PO Q12H insulin glargine U-300 conc (Toujeo SoloStar U-300 Insulin) 8 units subcut DAILY insulin pump cart,auto,BT-cntr (Omnipod 5 G6 Intro Kit (Gen 5) subcutaneous cartridge with controller) As directed insulin pump cart,automated,BT (Omnipod 5 G6 Pods (Gen 5) subcutaneous cartridge) As directed linaclotide 145 mcg PO DAILY norethindrone-e.estradiol-iron 1.5 mg-30 mcg (21)/75 mg (7) (Aurovela Fe 1.5/30 (28)) 1 tab PO DAILY pantoprazole 40 mg PO DAILY paroxetine HCl ER 25 mg PO DAILY pen needle, diabetic (BD Monica 2nd Gen Pen Needle) 1 ea miscellaneous .5 times a day 30 days yzccadf-wgkk-oavyb-oreg-capryl 100 mg-150 mg- 50 mg-150 mg 1 cap PO DAILY ustekinumab (Stelara) 45 mg subcut Do you need a note to return to daycare/school/sports/work: No HPI EP fever, immunosuppress(lobby,masked) HPI Details 42-year-old female presents to the office for a sick visit. Patient is type 1 diabetic with an insulin sensor. In addition she also has Crohn's disease for which she takes 2 biologicals. She recently had a bone marrow biopsy and a workup for MDS is in progress. Three days ago patient started experiencing chills and rigors with fever. No other family member has similar symptoms. Complains of fatigue and headache. No nausea or vomiting. 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), managed as type 1 [facility] (current) use of insulin Normal pelvic exam Other specified mononeuropathies Postlaminectomy syndrome of lumbar region Spondylosis of lumbar region without myelopathy or radiculopathy Vitamin D deficiency Surgical History H/O tooth extraction History of hemilaminectomy History of root canal procedure Hx of colonoscopy Family History Mother Tongue cancer Father Type 2 diabetes mellitus Retinopathy Neuropathy Angiopathy Blindness Renal failure Hypertension Cataract Skin cancer Paternal Uncle Substance use disorder Social History Household Members: Spouse and Children Household Members Other:: , 2 sons (11. 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 Housing: House Alcohol intake: never Patient Tobacco Use Status: Never used Tobacco e-Cigarette/Vaping Use: Never Used service: No Current occupational status: employed Cognitive needs: No Hearing needs: No Vision needs: Yes Physical Exam Vital Signs: Last Vital Signs Temp 101.5 F H 05/12/23 13:53 Pulse 122 H 05/12/23 13:53 BP 110/66 05/12/23 13:53 Pulse Ox 98 05/12/23 13:53 Oxygen Delivery Method Room Air 05/12/23 13:53 Const General: cooperative and healthy appearing Nutritional Appearance: well nourished Orientation/consciousness: patient oriented x3 Limitations: no limitations HEENT Head: Yes normal to inspection Eyes General: appearance normal, both eyes and all related structures Neck Neck: Yes normal visual inspection Chest Chest palpation & inspection: normal palpation of entire chest wall Resp Effort & Inspection: normal respiratory effort Cardio Other: Tachycardic. Neuro General: patient oriented x3 Assessment & Plan Assessment & Plan (1) Pneumonia: Code(s): J18.9 - Pneumonia, unspecified organism (2) Fever of unknown origin: Code(s): R50.9 - Fever, unspecified Plan: Chest x-ray was unremarkable. Urinalysis not show any evidence of infection. Empiric treatment with quinolones. Blood work has been ordered. Orders: Orders XR chest 2V Today J18.9 - Pneumonia, unspecified organism Medications: Discontinued insulin glargine U-300 conc 11 units (0.0367 mL) subcut DAILY 30 days 1.101 mL 6RF E10.9 - Type 1 diabetes mellitus without complications Coding Level of Care Code Est Pt Level 4 (56910) Diagnoses Pneumonia J18.9 Fever of unknown origin R50.9
[2023-05-12 13:53] VITALS: BP 110/66; PULSE 122; TEMP 38.6; O2SAT 98
== END 2023-05-12 14:50 | disposition home or self-care (01) ==
PROVIDERS: PCP Internal Medicine; Visit Provider Internal Medicine
DX: J18.9 Pneumonia, unspecified organism (principal); R50.9 Fever, unspecified; Z13.9 Encounter for screening, unspecified
CPT/HCPCS: 81003; 99214

== ENCOUNTER 2023-05-12 14:25 | Outpatient (REF) | payer OTHER, SELFPAY ==
--- NOTE | ~2023-05-12 | XR_ITS ---
EXAMINATION: XR CHEST CLINICAL INFORMATION: Pneumonia COMPARISON: 03/31/2018 TECHNIQUE: 2 views of the chest were obtained. FINDINGS: The lungs are well expanded. There is no focal consolidation, edema, or effusion. No pneumothorax. The cardiomediastinal silhouette is within normal limits. No acute osseous abnormality. XR/XR chest 2V IMPRESSION: Clear lungs.
[2023-05-12 16:38] LABS: Hematocrit 41.3 % (37.0-47.0); Hemoglobin 13.5 g/dl (12.0-16.0); Mean Corpuscular HGB Conc 32.7 g/dl (31.0-35.0); Mean Corpuscular Hemoglobin 32.3 pg (27.0-33.0); Mean Corpuscular Volume 98.8 fL (80.0-98.0); Mean Platelet Volume 11.6 fL (9.4-12.3); Platelet Count 267 X10*3/uL (160-400); Red Blood Count 4.18 X10*6/uL (4.20-5.50)
[2023-05-12 17:20] LABS: Alanine Aminotransferase 33 U/L (0-31); Albumin Level 3.9 g/dL (3.5-5.0); Alkaline Phosphatase 66 U/L (39-117); Anion Gap 13 (12-20); Aspartate Amino Transferase 53 U/L (5-31); Bilirubin Direct 0.1 mg/dL (0.0-0.5); Bilirubin Total 0.3 mg/dL (0.0-1.0); Blood Urea Nitrogen 9 mg/dL (9-16); Carbon Dioxide 25 mmol/L (22-29); Chloride 102 mmol/L (96-108); Estimated Glomerular Filt Rate > 60; Glucose Random 136 mg/dL (60-115); Potassium 3.5 mmol/L (3.3-5.1); Sodium 136 mmol/L (135-145); Total Protein 7.2 g/dL (6.5-8.0)
[2023-05-12 17:28] LABS: Atypical Lymph Absolute Manual 0.1 x10*3/uL; Atypical Lymphs Percent Manual 3 % (0-6); Band Neutrophils Percent 1 % (3-5); Basophils Percent Manual 1 % (0-2); Eosinophils Absolute Manual 0.1 X10*3/uL (0.0-0.4); Eosinophils Percent Manual 2 % (0-4); Lymphocytes Absolute Manual 0.7 X10*3/uL (1.2-4.9); Lymphocytes Percent Manual 18 % (20-40); Monocytes Absolute Manual 0.3 X10*3/uL (0.1-1.2); Monocytes Percent Manual 8 % (2-11); Neutrophils Absolute Manual 2.7 X10*3/uL (2.0-8.3); Neutrophils Percent Manual 67 % (45-73)
[2023-05-12 17:29] LABS: Platelet Estimate NORMAL (NORMAL); Platelet Morphology Comment NORM; RBC Morphology NORMAL
[2023-05-12 17:33] LABS: Erythrocyte Sedimentation Rate 28 MM/HR (0-20)
== END 2023-05-12 14:26 | disposition home or self-care (01) ==
LOC: HO.HMGCX 14:25
PROVIDERS: PCP Internal Medicine; Visit Provider Internal Medicine
DX: J18.9 Pneumonia, unspecified organism (principal); R05.9 Cough, unspecified
CPT/HCPCS: 36415; 71046; 80048; 80076; 84443; 85007; 85027; 85652

== ENCOUNTER 2023-05-15 12:17 | Emergency (ER) | payer OTHER, SELFPAY ==
--- NOTE | ~2023-05-15 | XR_ITS ---
EXAMINATION: XR CHEST CLINICAL INFORMATION: Fever COMPARISON: Previous chest x-ray most recent April 2023 TECHNIQUE: 2 views of the chest were obtained. FINDINGS: No significant abnormality is noted involving the heart, lungs, mediastinum, bony thorax or soft tissues. XR/XR chest 2V IMPRESSION: Unremarkable examination.
--- NOTE | ~2023-05-15 | XR_ITS ---
EXAMINATION: XR BILATERAL HIPS WITH AP PELVIS CLINICAL INFORMATION: Recent bone marrow biopsy. Pain. COMPARISON: 03/23/2014 TECHNIQUE: AP and frog-leg lateral views of each hip and an AP view of the pelvis. FINDINGS: There is no fracture or dislocation. The hips are well aligned. Joint spaces are maintained. The pelvic rim is intact. The sacroiliac joints and pubic symphysis are intact. Normal bowel gas pattern. XR/XR hip BI w PEL1V IMPRESSION: No fracture or malalignment. Normal appearance of the pelvis/hips.
[2023-05-15 12:44] VITALS: BP 112/70; PULSE 108; RESP 18; TEMP 36.6; O2SAT 98; BMI 25.1
--- NOTE | 2023-05-15 13:10 | ED.GENADULT ---
HPI - General Adult General Chief complaint: General Medical Stated complaint: sent from Dr. Fischer for more testing Time Seen by Provider: 05/15/23 12:43 Source: patient Mode of arrival: ambulatory Limitations: no limitations History of Present Illness HPI narrative: Patient is a 42-year-old female with history of T1DM, Crohn's disease, on Stelara, dyslipidemia presenting to the emergency department with complaint of fevers and body aches/joint pain since Thursday. States that she saw her PCP, Dr. Fischer, on Thursday, had chest x-ray and was started on levofloxacin for a UTI. Reports ongoing fevers since, Tmax on 102.9 this am. Denies any shortness of breath. Denies nausea, vomiting, constipation or diarrhea. Reports epigastric/left upper quadrant abdominal pain. Fever improves with Tylenol but then returns. She denies known tick bites or rashes. Reports bone marrow biopsy 04/17, and has ongoing soreness to lower back. Also reports dental extraction recently and has ongoing soreness to right lower jaw. MD complaint: fever, body aches Onset (ago): day(s) Associated symptoms: fever/chills Treatments prior to arrival: other (Tylenol, levofloxacin for UTI) Related Data Home Medications Medication Instructions Recorded Confirmed linaclotide 145 mcg capsule 145 mcg PO DAILY 08/21/20 04/16/23 hyoscyamine sulfate 0.375 mg 1 tab PO Q12H 10/29/20 04/16/23 tablet,extended release,12 hr ustekinumab 90 mg/mL subcutaneous 45 mg subcut 12/10/21 03/26/23 syringe (lara) tumeric 100 mg-radha 150 mg-olive 1 cap PO DAILY 07/31/22 03/26/23 50 mg-oreg 150 mg-caprylate capsule norethindrone 1.5 mg-ethinyl 1 tab PO DAILY 08/19/22 04/16/23 estradiol 30 mcg(21)/iron 75 mg(7) tablet (Aurovela Fe 1.5/30 (28)) azathioprine 50 mg tablet 100 mg PO DAILY 02/19/23 04/16/23 pantoprazole 40 mg tablet,delayed 40 mg PO DAILY 02/19/23 04/16/23 release insulin glargine U-300 conc 300 8 unit subcut DAILY 04/16/23 04/16/23 unit/mL (1.5 mL) subcutaneous pen (Toujeo SoloStar U-300 Insulin) Previous Rx's Medication Instructions Recorded pen needle, diabetic 32 gauge x 1 ea miscellaneous .5 times a day 07/01/22 (BD Monica 2nd Gen Pen Needle) 30 days #150 ea ferrous sulfate 324 mg (65 mg 324 mg PO BID #180 tabs 08/22/22 iron) tablet,delayed release insulin pump cart,automated,BT #5 ea 09/04/22 (Omnipod 5 G6 Pods (Gen 5) subcutaneous cartridge) insulin pump cartridge,automated #1 ea 09/04/22 dose,BT with controller subcutaneous (Omnipod 5 G6 Intro Kit (Gen 5) subcutaneous cartridge with controller) gabapentin 600 mg tablet 600 mg PO TID 30 days #90 tabs 09/25/22 gabapentin 300 mg capsule 300 mg PO TID 30 days #90 caps 02/17/23 paroxetine HCl 25 mg 25 mg PO DAILY #90 tabs 02/19/23 tablet,extended release 24 hr ascorbate calcium (vitamin C) 500 500 mg PO DAILY #90 tabs 02/25/23 mg tablet cholecalciferol (vitamin D3) 25 25 mcg PO DAILY #90 caps 02/25/23 mcg (1,000 unit) capsule blood-glucose meter,continuous #1 ea 03/13/23 (Dexcom G7 Doctor Of Dental Medicine) blood-glucose sensor (Dexcom G7 #3 ea 03/13/23 Sensor device) atorvastatin 40 mg tablet 40 mg PO DAILY #30 tabs 03/18/23 levofloxacin 500 mg tablet 500 mg PO DAILY #10 tabs 05/12/23 Allergies Allergy/AdvReac Type Severity Reaction Status Date / Time cephalexin Allergy Unknown RASH Verified 05/12/23 14:29 Penicillins Allergy Unknown RASH Verified 05/12/23 14:29 Sulfa (Sulfonamide Allergy Unknown RASH Verified 05/12/23 14:29 Antibiotics) Review of Systems Review of Systems: As per HPI. 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), managed as type 1 MCFP (current) use of insulin Normal pelvic exam Other specified mononeuropathies Postlaminectomy syndrome of lumbar region Spondylosis of lumbar region without myelopathy or radiculopathy Vitamin D deficiency Surgical History H/O tooth extraction History of hemilaminectomy History of root canal procedure Hx of colonoscopy Family History Family History Mother Tongue cancer Father Type 2 diabetes mellitus Retinopathy Neuropathy Angiopathy Blindness Renal failure Hypertension Cataract Skin cancer Paternal Uncle Substance use disorder Social History Social History Household Members: Spouse and Children Household Members Other:: , 2 sons (11. 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 Blood pressure normal. Heart rate mildly tachycardic. Respiratory rate normal. Temperature normal. Oxygen saturation normal. Const General: cooperative, healthy appearing and no acute distress Orientation/consciousness: oriented to person, oriented to place, oriented to time and patient oriented x3 Limitations: no limitations HENMT Other: No erythema or swelling to gingiva of upper or lower jaws. Head: Yes normocephalic and Yes atraumatic Ears: external ears normal General nose exam: Normal external nose present Face and sinus: Yes face symmetric Mouth: Normal oral and palatal mucosa present, oropharynx normal, moist mucous membranes and No restricted motion Teeth and gingiva: gingiva normal Throat: Yes posterior oropharynx normal, Yes uvula midline and No uvular edema Eyes Pupils: Equal, round and reactive pupils present Neck Neck: Yes normal visual inspection, Yes full ROM, Yes no lymphadenopathy and Yes supple Resp Effort & Inspection: normal respiratory effort and able to speak in complete sentences Auscultation: clear to auscultation bilaterally Cardio Rate: regular rate Rhythm: regular rhythm Heart sounds: S1 normal heart sound present and S2 normal heart sound present GI Palpation (GI): Soft to palpation and nontender Auscultation: normoactive bowel sounds General: Yes no CVA tenderness Back/Spine/Pelvis Back: no CVA tenderness Pelvis: Other pelvic findings (mild tenderness over left iliac crest, no erythema or warmth) Coccyx: Other pelvic findings (mild tenderness over left iliac crest, no erythema or warmth) Skin General skin exam: elasticity normal and turgor normal Neuro General: oriented to person, oriented to place, oriented to time, patient oriented x3, moves all extremities, no focal motor deficits and CN's II-XI intact bilaterally Cranial nerves: Yes Equal, round and reactive pupils present Cognition (Neuro): normal cognition Extrem General: Yes full ROM, Yes no pedal edema and Yes no calf tenderness Psych Mental Status: mental status grossly normal Affect: normal affect Thought process: Normal thought process present Medications Administered Discontinued Medications Generic Name Dose Route Start Last Admin Trade Name Freq PRN Reason Stop Dose Admin Ibuprofen 400 mg 05/15/23 15:28 05/15/23 15:33 Ibuprofen 400 Mg Tablet PO 05/15/23 15:29 400 mg ONCE ONE Administration Medical Decision Making Medical Decision Making [facility] Narrative: Patient is a 42-year-old female with history of T1DM, Crohn's disease, on Stelara, dyslipidemia presenting to the emergency department with complaint of fevers and body aches/joint pain since Thursday. On exam patient is awake, A+Ox3, VS WNL, afebrile currently, normal neurological exam without focal deficits, LS CTA throughout, abdomen is soft and nontender, mild tenderness over left iliac crest, no erythema or warmth. Given reported symptoms and physical exam findings, initial differential includes pyelonephritis, pneumonia, tick-borne illness, viral illness, strep pharyngitis, osteomyelitis r/t recent bone marrow biopsy. Do not suspect sepsis at this time. Unlikely meningitis, enchephalitis, abdominal infection. Labs notable for no leukocytosis or left shift, mildly elevated liver enzymes. UA positive for trace leuks and no bacteria, patient currently on levofloxacin. COVID, flu, and strep all negative. X-ray chest notable for no pneumonia. X-ray hips and pelvis shows no acute findings. My interpretation is in agreement with the radiologist's interpretation. Concern for possible tick-borne illness remains given patient's elevated liver enzymes. Tick panel pending. 17:12 Patient still not meeting sepsis criteria. No clear cause of fever is evident at this time, patient currently afebrile, likely viral illness. Feel patient is stable for discharge home with PCP follow up. Patient will be notified of any positive results of tick panel. All results discussed and all questions answered. Return precautions discussed at bedside. Instructed patient to follow-up with PCP. Patient verbalized understanding of an agreement with plan. Differential Diagnosis Differential Diagnoses: The differential diagnosis associated with the presentation includes As per [facility]. Admission/Observation Consideration of admission/observation: Escalation of care including admission/observation considered Considered on arrival given concern for possible pyelo, pneumonia. Lab Data [facility] Lab Attestation statement: I reviewed the patient's lab results. As per [facility]. 05/15/23 13:19 05/15/23 13:19 Labs: Lab Results 05/15/23 05/15/23 05/15/23 Range/Units 13:19 13:19 13:19 WBC 4.1 L (4.8-10.8) X10*3/uL RBC 4.14 L (4.20-5.50) X10*6/uL Hgb 13.4 (12.0-16.0) g/dl Hct 39.4 (37.0-47.0) % MCV 95.2 (80.0-98.0) fL MCH 32.4 (27.0-33.0) pg MCHC 34.0 (31.0-35.0) g/dl RDW 12.9 (11.0-16.0) % Plt Count 268 (160-400) X10*3/uL MPV 10.6 (9.4-12.3) fL Immature Gran % (Auto) 2.2 H (0.0-0.4) % Neut % (Auto) 62.0 (45-73) % Lymph % (Auto) 28.3 (20-40) % [place] % (Auto) 5.6 (2-11) % Eos % (Auto) 1.2 (0-4) % Baso % (Auto) 0.7 (0-2) % Lymph # (Auto) 1.2 (1.2-4.9) X10*3/uL [place] # (Auto) 0.2 (0.1-1.2) X10*3/uL Eos # (Auto) 0.1 (0.0-0.4) X10*3/uL Baso # (Auto) 0.0 (0.0-0.2) X10*3/uL Abs Immat Gran (auto) 0.09 H (0.00-0.03) X10*3/uL Absolute Neuts (auto) 2.5 (2.0-8.3) x10*3/uL Absolute Nucleated RBC 0.000 (0.0-0.012) X10*3/uL Nucleated RBC % (auto) 0.0 (0.0-0.2) /100WBC Smear Tech's Comments VERIFIED Sodium 137 (135-145) mmol/L Potassium 3.6 (3.3-5.1) mmol/L Chloride 102 (96-108) mmol/L Carbon Dioxide 24 (22-29) mmol/L Anion Gap 13 (12-20) BUN 7 L (9-16) mg/dL Creatinine 0.74 (0.5-1.4) mg/dL Estim Creat Clear Calc 84.9 Estimated GFR > 60 Random Glucose 101 (60-115) mg/dL Lactic Acid 1.2 (0.5-2.0) mmol/L Calcium 9.6 D (8.4-10.2) mg/dL Total Bilirubin 0.4 (0.0-1.0) mg/dL AST 68 H (5-31) U/L ALT 35 H (0-31) U/L Alkaline Phosphatase 92 (39-117) U/L Total Protein 7.9 (6.5-8.0) g/dL Albumin 4.0 (3.5-5.0) g/dL Urine Color Urine Appearance Urine pH (5.0-9.0) Ur Specific [place] (1.005-1.025) Urine Protein (Neg-Trace) mg/dL Urine Glucose (UA) (Negative) mg/dL Urine Ketones (Negative) mg/dL Urine Blood (Negative) Urine Nitrite (Negative) Ur Leukocyte Esterase (Negative) Urine RBC (0-2) /HPF Urine WBC (0-5) /HPF Ur Squamous Epith Cells (0-2) /HPF Urine Bacteria (None Seen) Hyaline Casts (0-2) /LPF COVID-19 ([place]) (Negative) COVID-19 Clin Com Influenza Type A (BRENDA) (Negative) Influenza Type B (BRENDA) (Negative) Influenza A & B Note S. pyogenes GrpA BRENDA (Negative) 05/15/23 05/15/23 05/15/23 Range/Units 13:19 13:19 13:19 WBC (4.8-10.8) X10*3/uL RBC (4.20-5.50) X10*6/uL Hgb (12.0-16.0) g/dl Hct (37.0-47.0) % MCV (80.0-98.0) fL MCH (27.0-33.0) pg MCHC (31.0-35.0) g/dl RDW (11.0-16.0) % Plt Count (160-400) X10*3/uL MPV (9.4-12.3) fL Immature Gran % (Auto) (0.0-0.4) % Neut % (Auto) (45-73) % Lymph % (Auto) (20-40) % [place] % (Auto) (2-11) % Eos % (Auto) (0-4) % Baso % (Auto) (0-2) % Lymph # (Auto) (1.2-4.9) X10*3/uL [place] # (Auto) (0.1-1.2) X10*3/uL Eos # (Auto) (0.0-0.4) X10*3/uL Baso # (Auto) (0.0-0.2) X10*3/uL Abs Immat Gran (auto) (0.00-0.03) X10*3/uL Absolute Neuts (auto) (2.0-8.3) x10*3/uL Absolute Nucleated RBC (0.0-0.012) X10*3/uL Nucleated RBC % (auto) (0.0-0.2) /100WBC Smear Tech's Comments Sodium (135-145) mmol/L Potassium (3.3-5.1) mmol/L Chloride (96-108) mmol/L Carbon Dioxide (22-29) mmol/L Anion Gap (12-20) BUN (9-16) mg/dL Creatinine (0.5-1.4) mg/dL Estim Creat Clear Calc Estimated GFR Random Glucose (60-115) mg/dL Lactic Acid (0.5-2.0) mmol/L Calcium (8.4-10.2) mg/dL Total Bilirubin (0.0-1.0) mg/dL AST (5-31) U/L ALT (0-31) U/L Alkaline Phosphatase (39-117) U/L Total Protein (6.5-8.0) g/dL Albumin (3.5-5.0) g/dL Urine Color Urine Appearance Urine pH (5.0-9.0) Ur Specific [place] (1.005-1.025) Urine Protein (Neg-Trace) mg/dL Urine Glucose (UA) (Negative) mg/dL Urine Ketones (Negative) mg/dL Urine Blood (Negative) Urine Nitrite (Negative) Ur Leukocyte Esterase (Negative) Urine RBC (0-2) /HPF Urine WBC (0-5) /HPF Ur Squamous Epith Cells (0-2) /HPF Urine Bacteria (None Seen) Hyaline Casts (0-2) /LPF COVID-19 ([place]) Negative (Negative) COVID-19 Clin Com See Note Influenza Type A (BRENDA) Negative (Negative) Influenza Type B (BRENDA) Negative (Negative) Influenza A & B Note See Note S. pyogenes GrpA BRENDA Negative (Negative) 05/15/23 Range/Units 13:39 WBC (4.8-10.8) X10*3/uL RBC (4.20-5.50) X10*6/uL Hgb (12.0-16.0) g/dl Hct (37.0-47.0) % MCV (80.0-98.0) fL MCH (27.0-33.0) pg MCHC (31.0-35.0) g/dl RDW (11.0-16.0) % Plt Count (160-400) X10*3/uL MPV (9.4-12.3) fL Immature Gran % (Auto) (0.0-0.4) % Neut % (Auto) (45-73) % Lymph % (Auto) (20-40) % [place] % (Auto) (2-11) % Eos % (Auto) (0-4) % Baso % (Auto) (0-2) % Lymph # (Auto) (1.2-4.9) X10*3/uL [place] # (Auto) (0.1-1.2) X10*3/uL Eos # (Auto) (0.0-0.4) X10*3/uL Baso # (Auto) (0.0-0.2) X10*3/uL Abs Immat Gran (auto) (0.00-0.03) X10*3/uL Absolute Neuts (auto) (2.0-8.3) x10*3/uL Absolute Nucleated RBC (0.0-0.012) X10*3/uL Nucleated RBC % (auto) (0.0-0.2) /100WBC Smear Tech's Comments Sodium (135-145) mmol/L Potassium (3.3-5.1) mmol/L Chloride (96-108) mmol/L Carbon Dioxide (22-29) mmol/L Anion Gap (12-20) BUN (9-16) mg/dL Creatinine (0.5-1.4) mg/dL Estim Creat Clear Calc Estimated GFR Random Glucose (60-115) mg/dL Lactic Acid (0.5-2.0) mmol/L Calcium (8.4-10.2) mg/dL Total Bilirubin (0.0-1.0) mg/dL AST (5-31) U/L ALT (0-31) U/L Alkaline Phosphatase (39-117) U/L Total Protein (6.5-8.0) g/dL Albumin (3.5-5.0) g/dL Urine Color Dark Yellow Urine Appearance Clear Urine pH 5.5 (5.0-9.0) Ur Specific [place] 1.025 (1.005-1.025) Urine Protein 30 (1+) H (Neg-Trace) mg/dL Urine Glucose (UA) Negative (Negative) mg/dL Urine Ketones Trace (Negative) mg/dL Urine Blood Trace H (Negative) Urine Nitrite Negative (Negative) Ur Leukocyte Esterase Trace H (Negative) Urine RBC 3-5 H (0-2) /HPF Urine WBC 0-5 (0-5) /HPF Ur Squamous Epith Cells 11-20 (0-2) /HPF Urine Bacteria None Seen (None Seen) Hyaline Casts 0-2 (0-2) /LPF COVID-19 ([place]) (Negative) COVID-19 Clin Com Influenza Type A (BRENDA) (Negative) Influenza Type B ([facility]ENDA) (Negative) Influenza A & B Note S. pyogenes GrpA BRENDA (Negative) Independent Interpretation I performed an independent interpretation of an: Plain X-Ray Interpretation: Unremarkable chest, no pneumonia. Normal hip/pelvis, no evidence of osteomyelitis. Radiology Impression Discussion of test interpretation with radiology: I have reviewed the radiologist's reading. Radiologist Impression: FINDINGS: No significant abnormality is noted involving the heart, lungs, mediastinum, bony thorax or soft tissues. XR/XR chest 2V IMPRESSION: Unremarkable examination. FINDINGS: There is no fracture or dislocation. The hips are well aligned. Joint spaces are maintained. The pelvic rim is intact. The sacroiliac joints and pubic symphysis are intact. Normal bowel gas pattern.? XR/XR hip BI w PEL1V IMPRESSION: No fracture or malalignment. Normal appearance of the pelvis/hips. External Record Review External record reviewed: Inpatient record, Office record and Outpatient record Discharge Plan Discharge Clinical Impression: Fever Patient Disposition: Home, Self-Care Instructions: Fever in Adults (ED) Additional Instructions: You were evaluated in the emergency department today for fever. The evaluation, including labs, urinalysis, and x-ray, suggests that the symptoms are due to a viral illness. Please alternate Tylenol and Motrin every 4-6 hours to help control your fever. Please follow-up with your primary care provider within 3 days. Return to the emergency department immediately if you experience severe cough, fevers greater than 100.4? F that cannot be controlled with Tylenol/ibuprofen, recurrent vomiting, lethargy, seizures, shortness of breath, or any other concerning symptoms. Prescriptions: No Action pen needle, diabetic [BD Monica 2nd Gen Pen Needle] 32 gauge x 5/32 needle 1 ea miscellaneous .5 times a day 30 Days Qty: 150 4RF ferrous sulfate 324 mg (65 mg iron) tablet,delayed release (DR/EC) 324 mg PO BID Qty: 180 3RF (DME) Omnipod 5 G6 Intro Kit (Gen 5) Cartridge See Rx Instructions .Route Qty: 1 0RF Rx Instructions: As directed (DME) Omnipod 5 G6 Pods (Gen 5) Cartridge See Rx Instructions .Route Qty: 5 0RF Rx Instructions: As directed gabapentin 600 mg tablet 600 mg PO TID 30 Days Qty: 90 8RF gabapentin 300 mg capsule 300 mg PO TID 30 Days Qty: 90 8RF cholecalciferol (vitamin D3) 25 mcg (1,000 unit) capsule 25 mcg PO DAILY Qty: 90 3RF ascorbate calcium (vitamin C) 500 mg tablet 500 mg PO DAILY Qty: 90 3RF (DME) Dexcom G7 Sensor Device See Rx Instructions .Route Qty: 3 5RF Rx Instructions: As directed change every 10 days (DME) Dexcom G7 Doctor Of Dental Medicine Misc See Rx Instructions .Route Qty: 1 0RF Rx Instructions: As directed atorvastatin 40 mg tablet 40 mg PO DAILY Qty: 30 4RF hyoscyamine sulfate 0.375 mg tablet extended release 12 hr 1 tab PO Q12H Stelara 90 mg/mL syringe 45 mg subcut Toujeo SoloStar U-300 Insulin 300 unit/mL (1.5 mL) insulin pen 8 unit subcut DAILY pantoprazole 40 mg tablet,delayed release (DR/EC) 40 mg PO DAILY paroxetine HCl 25 mg tablet extended release 24 hr 25 mg PO DAILY Qty: 90 2RF azathioprine 50 mg tablet 100 mg PO DAILY levofloxacin 500 mg tablet 500 mg PO DAILY Qty: 10 0RF Linzess 145 mcg capsule 145 mcg PO DAILY mmcsuyt-qqnq-krawh-oreg-capryl 100 mg-150 mg- 50 mg-150 mg capsule 1 cap PO DAILY norethindrone-e.estradiol-iron [Aurovela Fe 1.5/30 (28)] 1.5 mg-30 mcg (21)/75 mg (7) tablet 1 tab PO DAILY
[2023-05-15 13:40] LABS: Basophils Percent Auto 0.7 % (0-2); Eosinophils Absolute Auto 0.1 X10*3/uL (0.0-0.4); Eosinophils Percent Auto 1.2 % (0-4); Hematocrit 39.4 % (37.0-47.0); Hemoglobin 13.4 g/dl (12.0-16.0); Imm Gran Abs Auto 0.09 X10*3/uL (0.00-0.03); Imm Gran Pct Auto 2.2 % (0.0-0.4); Lymphocytes Absolute Auto 1.2 X10*3/uL (1.2-4.9); Lymphocytes Percent Auto 28.3 % (20-40); MANUAL DIFF FLAG SCAN; Mean Corpuscular Hemoglobin 32.4 pg (27.0-33.0); Mean Corpuscular Volume 95.2 fL (80.0-98.0); Mean Platelet Volume 10.6 fL (9.4-12.3); Monocytes Absolute Auto 0.2 X10*3/uL (0.1-1.2); Monocytes Percent Auto 5.6 % (2-11); Neutrophils Absolute Auto 2.5 x10*3/uL (2.0-8.3); Platelet Count 268 X10*3/uL (160-400); Red Blood Count 4.14 X10*6/uL (4.20-5.50); Red Cell Distribution Width 12.9 % (11.0-16.0); SCAN SMEAR FLAG 1; White Blood Count 4.1 X10*3/uL (4.8-10.8)
[2023-05-15 13:53] LABS: IDNOW Serial# 6674DD1D; Strep A Nucleic Acid Negative (Negative)
[2023-05-15 13:56] LABS: Lactic Acid 1.2 mmol/L (0.5-2.0)
[2023-05-15 14:02] LABS: COVID-19 Test Negative (Negative); IDNOW Serial# 9DB6401D
[2023-05-15 14:03] LABS: SLIDE REVIEW VERIFIED
[2023-05-15 14:49] LABS: Alanine Aminotransferase 35 U/L (0-31); Alkaline Phosphatase 92 U/L (39-117); Anion Gap 13 (12-20); Aspartate Amino Transferase 68 U/L (5-31); Bilirubin Total 0.4 mg/dL (0.0-1.0); Blood Urea Nitrogen 7 mg/dL (9-16); Calcium 9.6 mg/dL (8.4-10.2); Carbon Dioxide 24 mmol/L (22-29); Chloride 102 mmol/L (96-108); Creatinine Clr Calc Pharmacy 84.9; Estimated Glomerular Filt Rate > 60; Glucose Random 101 mg/dL (60-115); Potassium 3.6 mmol/L (3.3-5.1); Sodium 137 mmol/L (135-145); Total Protein 7.9 g/dL (6.5-8.0)
[2023-05-15 14:57] LABS: Appearance Urine Clear; Color Urine Dark Yellow; Glucose Urine UA Negative (Negative); Leukocyte Esterase Urine Trace (Negative); Nitrite Urine Negative (Negative); PH 5.5 (5.0-9.0); Specific Gravity - Urine 1.025 (1.005-1.025); UMIC TRIGGER UACC YES; Urine Blood Trace (Negative); Urine Ketones Trace mg/dL (Negative); Urine Protein 30 (1+) mg/dL (Neg-Trace)
[2023-05-15 14:57] LABS: IDNOW Serial# BCCEAD1C; Influenza A Negative (Negative); Influenza B2 Negative (Negative)
[2023-05-15 14:59] LABS: Bacteria Urine None Seen (None Seen); Hyaline Casts Urine 0-2 /LPF (0-2); WBC Urine 0-5 /HPF (0-5)
[2023-05-15] MEDS: Ibuprofen 400 MG TABLET PO (15:33)
[2023-05-15 17:51] VITALS: BP 114/82; PULSE 85; RESP 16; TEMP 36.8; O2SAT 98
[2023-05-18 23:18] LABS: A. Phagocytphilium DNA,RT-PCR NOT DETECTED (NOT DETECTED); Babesia Microti DNA, RT-PCR NOT DETECTED (NOT DETECTED); Borrelia Miyamotoi,DNA RT-PCR NOT DETECTED (NOT DETECTED); E.Chaffeensis DNA RT-PCR NOT DETECTED (NOT DETECTED); Lyme(Borrelia ssp)DNA RT-PCR NOT DETECTED (NOT DETECTED)
== END 2023-05-15 17:51 | disposition home or self-care (01) ==
PROVIDERS: Registered Nurse Emergency; Emergency Provider Emergency Medicine; PCP Internal Medicine
DX: R50.9 Fever, unspecified (principal); E10.8 Type 1 diabetes mellitus with unspecified complications; E78.5 Hyperlipidemia, unspecified; K50.90 Crohn's disease, unspecified, without complications; Z79.4 Long term (current) use of insulin
CPT/HCPCS: 71046; 73521; 80053; 81001; 83605; 85025; 87040; 87502; 87635; 87651; 87798; 87801; 99283; 99284

== ENCOUNTER 2023-05-19 12:56 | Outpatient (AMB) | payer OTHER, SELFPAY ==
[2023-05-19 12:57] VITALS: BP 96/76; PULSE 116; TEMP 37.4; O2SAT 98; BMI 26.3
--- NOTE | 2023-05-19 12:57 | MHC.PC.OV ---
Vital Signs 05/19/23 12:57 Height 5 ft 2 in Weight 144 lb BMI 26.3 BP 96/76 Blood Pressure Location Rt brachial Position Sitting Pulse 116 H Pulse Source Pulse Oximeter Temp 99.3 F Temp Source Oral Pulse Oximetry (%) 98 Oxygen Delivery Method Room Air Intake Visit Reasons: Follow-up Labs from [place] Intake Note: Pt is here today for a follow up visit after being seen in walk in and ER. Pt states that she still has fevers. Pt states that she had a lot of blod work done. Allergies cephalexin Allergy (Unknown, Verified 05/19/23 12:59) RASH Penicillins Allergy (Unknown, Verified 05/19/23 12:59) RASH Sulfa (Sulfonamide Antibiotics) Allergy (Unknown, Verified 05/19/23 12:59) RASH Medication List - Last Reconciled 05/19/23 by Emi Briceño MD ascorbate calcium (vitamin C) 500 mg PO DAILY atorvastatin 40 mg PO DAILY azathioprine 100 mg PO DAILY blood-glucose meter,continuous (Dexcom G7 Public Safety Teacher) As directed blood-glucose sensor (Dexcom G7 Sensor device) As directed change every 10 days cholecalciferol (vitamin D3) 25 mcg PO DAILY clindamycin HCl 300 mg PO Q8H ferrous sulfate 324 mg PO BID fluconazole (Diflucan) 150 mg PO Q3D 2 doses gabapentin 600 mg PO TID 30 days gabapentin 300 mg PO TID 30 days hyoscyamine sulfate ER 1 tab PO Q12H insulin glargine U-300 conc (Toujeo SoloStar U-300 Insulin) 8 units subcut DAILY insulin pump cart,auto,BT-cntr (Omnipod 5 G6 Intro Kit (Gen 5) subcutaneous cartridge with controller) As directed insulin pump cart,automated,BT (Omnipod 5 G6 Pods (Gen 5) subcutaneous cartridge) As directed levofloxacin 500 mg PO DAILY linaclotide 145 mcg PO DAILY norethindrone-e.estradiol-iron 1.5 mg-30 mcg (21)/75 mg (7) (Aurovela Fe 1.5/30 (28)) 1 tab PO DAILY pantoprazole 40 mg PO DAILY paroxetine HCl ER 25 mg PO DAILY pen needle, diabetic (BD Monica 2nd Gen Pen Needle) 1 ea miscellaneous .5 times a day 30 days kyklytf-wjhi-foceo-oreg-capryl 100 mg-150 mg- 50 mg-150 mg 1 cap PO DAILY ustekinumab (Stelara) 45 mg subcut Tobacco use date assessed: 05/19/23 Dental Screening Dental Screen Date: 05/19/23 Did you have a dental visit in the last 12 months?: Yes Did you have a dental problem in the last 6 months where you did not have access to dental care?: No Was dental information given to patient?: Patient has dentist HPI Follow-up Labs from [facility] Details Pt presents for f/u ER visit for 1 week of fever up to 102, chills body aches and left upper quadrant abdominal discomfort, decreased appetite. Patient was started on Levaquin for possible UTI. She denies diarrhea constipation hematochezia melena dysuria hematuria. She reports poor appetite and some nausea but not vomiting. She had negative blood culture and negative tick-borne antibodies. Patient reports having a root canal treatment 2 weeks ago and still have persistent right mandibular discomfort. 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 Luis Ferraro, Sandra Miller, En Crespo and colleagues, with an educational alyssa from [employer]. Review of Systems Const All systems reviewed & are unremarkable except as noted in HPI and below Reports no additional complaints Eyes Reports no additional complaints ENT Reports no additional complaints Card Reports no additional complaints Resp Reports no additional complaints GI Reports no additional complaints Reports no additional complaints Physical exam (Primary Care) Vital Signs: Last Vital Signs Pulse 116 H 05/19/23 12:57 BP 96/76 05/19/23 12:57 Pulse Ox 98 05/19/23 12:57 Oxygen Delivery Method Room Air 05/19/23 12:57 BMI result Body Mass Index 26.3 Tobacco/Smoking Status: Tobacco use Status Tobacco use date assessed 05/19/23 05/19/23 13:02 Patient Tobacco Use Status Never used Tobacco 05/19/23 13:02 e-Cigarette/Vaping Use Never Used 05/19/23 13:02 Thrive Assessment: Date of Thrive Assessment Date Thrive assessed 02/19/23 05/19/23 13:02 Const General: no acute distress HENMT Head: Yes normal to inspection Ears: hearing grossly normal bilaterally Face and sinus: Yes normal facial exam Mouth: Abnormal oral and palatal mucosa present (dry) Throat: Yes posterior oropharynx normal Eyes General: appearance normal, both eyes and all related structures Neck Neck: Yes no lymphadenopathy and Yes supple Resp Effort & Inspection: normal respiratory effort Auscultation: clear to auscultation bilaterally Cardio Rhythm: regular rhythm Heart sounds: S1 normal heart sound present and S2 normal heart sound present GI Inspection: Yes normal to inspection Palpation (GI): Soft to palpation, Tenderness to palpation present (GI) in the epigastrum and in the LUQ, no guarding and No hepatosplenomegaly present Percussion: Yes normal to percussion Auscultation: normal bowel sounds Assessment and Plan Assessment & Plan (1) Fever: Code(s): R50.9 - Fever, unspecified Plan: Continue Levaquin and add clindamycin for Gram-positive and anaerobic coverage possible oral humphrey bacteria. If the fever persists patient will be referred to infectious disease specialist (2) Abdominal pain: Code(s): R10.9 - Unspecified abdominal pain Plan: Obtain CT of the abdomen and pelvis with contrast to rule out intra-abdominal process including abscess. (3) Crohn's disease: Comment: Sees Dr Correa Code(s): K50.90 - Crohn's disease, unspecified, without complications Plan: Patient follows up with GI and has been on immunosuppression therapy Orders: Orders CT abdomen pelvis w IV con Today K50.90 - Crohn's disease, unspecified, without complications, R10.9 - Unspecified abdominal pain, R79.89 - Other specified abnormal findings of blood chemistry Medications: New clindamycin HCl 300 mg PO Q8H 30 caps 0RF Discontinued insulin glargine U-300 conc 11 units (0.0367 mL) subcut DAILY 30 days 1.101 mL 6RF E10.9 - Type 1 diabetes mellitus without complications Coding Level of Care Code Est Pt Level 4 (62905) Diagnoses Fever R50.9 Abdominal pain R10.9 Crohn's disease K50.90
== END 2023-05-19 14:14 | disposition home or self-care (01) ==
PROVIDERS: PCP Internal Medicine; Visit Provider Internal Medicine
DX: R50.9 Fever, unspecified (principal); R10.9 Unspecified abdominal pain; K50.90 Crohn's disease, unspecified, without complications
CPT/HCPCS: 99214

== ENCOUNTER 2023-05-19 14:30 | Outpatient (REF) | payer OTHER, SELFPAY ==
--- NOTE | ~2023-05-19 | CT_ITS ---
EXAMINATION: CT ABDOMEN AND PELVIS WITHOUT CONTRAST CLINICAL INFORMATION: Abdominal pain, rule out abscess. COMPARISON: CT scan of the abdomen and pelvis dated 09/02/2022. TECHNIQUE: Multidetector volumetric imaging was performed from the superior aspect of the liver through the pubic symphysis. Sagittal and coronal reformatted images were obtained on the technologist's workstation. Lack of intravenous and oral contrast limits visceral evaluation. Oral contrast was administered. This CT examination was performed using dose optimization techniques as appropriate, variously including the following: *Automated exposure control *Adjustment of mA and/or kV according to patient size (this includes techniques or standardized protocols for targeted exams where dose is matched to indication/reason for exam; i.e. extremities or head) *Use of iterative reconstruction technique DLP: 410 mGy-cm FINDINGS: LUNG BASES: The visualized lung bases are unremarkable. LIVER, GALLBLADDER, AND BILIARY TREE: Unremarkable. PANCREAS: Unremarkable. SPLEEN: Unremarkable. ADRENAL GLANDS: Unremarkable. KIDNEYS AND URETERS: The kidneys are normal in size, shape, and attenuation. No hydronephrosis, hydroureter, or calculi seen. No perinephric stranding. BLADDER: Unremarkable. GASTROINTESTINAL TRACT: The stomach, small bowel and appendix are unremarkable. The colon is unremarkable. No thickening is seen at the level the rectum with minimal surrounding infiltrative changes. No evidence for perforation or abscess formation. ABDOMINAL WALL: Very small fat-containing umbilical hernia. LYMPH NODES: Mildly enlarged perirectal lymph nodes. A door to door sales representative lymph node measures 0.7 cm (image 61, series 3). VASCULAR: Unremarkable. PELVIC VISCERA: Unremarkable. OSSEOUS STRUCTURES: L4-L5 moderate to severe degenerative disc disease. No acute/suspicious abnormality. CT/CT abdomen pelvis wo IV con IMPRESSION: 1. No acute intra-abdominal/pelvic abnormality to explain the patient's symptoms. 2. Persistent circumferential rectal mural thickening with minimal perirectal infiltrative changes and mildly enlarged lymph nodes with similar appearance. These findings remain nonspecific and could be secondary to a chronic infectious/inflammatory process. Malignancy would be less likely given the chronicity. Correlate clinically.
[2023-05-19] MEDS: Barium Sulfate Oral (Berry) 450 ML ORAL.SUSP 900 ML PO (17:15)
== END 2023-05-19 14:31 | disposition home or self-care (01) ==
LOC: HO.CT 14:30
PROVIDERS: PCP Internal Medicine; Visit Provider Internal Medicine
DX: R10.9 Unspecified abdominal pain (principal); K50.90 Crohn's disease, unspecified, without complications; R79.89 Other specified abnormal findings of blood chemistry
CPT/HCPCS: 74176

== ENCOUNTER 2023-05-25 15:09 | Outpatient (AMB) | payer OTHER, SELFPAY ==
--- OUTSIDE RECORDS SUMMARY | 2023-05-25 15:11 | XMS_ITS ---
Author Name Satinder Correa Jr Address [address] [place] [address] Organization [facility] Address [address] [place] [address] Care Team Providers Care Information Coder Name Role Phone Sunny Satinder Unavailable PROBLEMS Type Condition ICD9-CM Code NNS53-JG Code Onset Dates Condition Status SNOMED Code Problem Gastroesophageal reflux disease without esophagitis K21.9 Active 96423142 5 Problem Chronic idiopathic constipation K59.04 Active 38761491 Problem Crohn''s disease without complication, unspecified gastrointestinal tract location K50.90 Active 26099706 Problem Irritable bowel syndrome with constipation and diarrhea K58.2 Active 68194401 Problem Crohn's disease of colon K50.10 Active Problem Drug therapy Z79.899 Active 647282277 Problem Crohn's disease of large intestine without complications K50.10 Active 0985607 Problem Crohn's disease of large intestine with rectal bleeding K50.111 Active 5746537 Problem Irritable bowel syndrome with constipation K58.1 Active [id number] ALLERGIES Substance Reaction Event Type Date Status Sulfa Unknown Drug Allergy Dec, Active Keflex Unknown Drug Allergy Dec, Active Penicillin Unknown Drug Allergy Dec, Active Zithromax Z-Zackary Unknown Drug Allergy Dec, Activ e Bactrim Unknown Drug Allergy Dec, Active ENCOUNTERS Encounter Location Date Diagnosis [facility] [address] [place] [address] Apr, [facility] [address] [place] [address] Apr, Elevated LFTs R79.89 [facility] [address] [place] [address] 27 Jan, 2023 [facility] [address] [place] [id number] Jan, Crohn's disease of colon K50.10 [facility] [address] [place] [address] Jan, [facility] [address] [place] [address] 30 Dec, 2022 [facility] [address] [place] [address] 16 Dec, 2022 [facility] [address] [place] [address] Dec, Crohn's disease of large intestine without complications K50.10 ; Gastroesophageal reflux disease without esophagitis K21.9 and Chronic idiopathic constipation K59.04 [facility] [address] [place] [address] Oct, [facility] [address] [place] [address] Oct, [facility] [address] [place] [address] Aug, [facility] [address] [place] [address] Jun, [facility] [address] [place] [address] 28 Mar, 2022 [facility] [address] [place] [address] Mar, [facility] [address] [place] [address] 16 Mar, 2022 Crohn's disease of large intestine with rectal bleeding K50.111 ; Gastroesophageal reflux disease without esophagitis K21.9 and Irritable bowel syndrome with constipation and diarrhea K58.2 [facility] [address] [place] [address] Nov, [facility] [address] [place] [address] Oct, [facility] [address] [place] 17 Sep, 2021 [facility] [address] [place] [address] 16 Sep, 2021 [facility] [address] [place] [address] 16 Sep, 2021 Crohn's disease of large intestine with rectal bleeding K50.111 ; Chronic idiopathic constipation K59.04 and Gastroesophageal reflux disease without esophagitis K21.9 [facility] [address] [place] [address] May, [facility] [address] [place] [address] 08 Apr, 2021 [facility] [address] [place] [address] 28 Mar, 2021 Crohn''s disease without complication, unspecified gastrointestinal tract location K50.90 [facility] [address] [place] [address] 18 Mar, 2021 [facility] [address] [place] 17 Mar, 2021 Crohn's disease of large intestine with rectal bleeding K50.111 ; Gastroesophageal reflux disease without esophagitis K21.9 and Chronic idiopathic constipation K59.04 [facility] [address] [place] [address] 26 Jan, 2021 [facility] [address] [place] 12 Jan, 2021 [facility] [address] [place] Jan, [facility] [address] [place] 29 Dec, 2020 [facility] [address] [place] [address] 11 Dec, 2020 [facility] [address] [place] [address] 27 Oct, 2020 [facility] [address] [place] [address] Aug, [facility] [address] [place] [address] Aug, Crohn's disease of large intestine without complications K50.10 ; Gastroesophageal reflux disease without esophagitis K21.9 and Irritable bowel syndrome with constipation K58.1 [facility] [address] [place] [address] Jul, [facility] [address] [place] [address] Mar, Crohn's disease of large intestine with rectal bleeding K50.111 [facility] [address] [place] [address] February, Crohn's disease of large intestine without complications K50.10 [facility] [address] [facility] [place] [address] Dec, [facility] [address] [place] [address] [place] [address] Nov, [facility] [address] [facility] [place] Nov, [facility] [address] [place] [address] Nov, [facility] [address] [place] [address] [place] [address] Oct, [facility] [address] [place] [address] Oct, [facility] [place] [address] [place] [id number] Oct, [facility] [address] [place] [address] [place] [address] Oct, [facility] [address] [place] [address] Oct, [facility] [address] [place] [address] [place] Oct, [facility] [address] [place] [address] Oct, [facility] [address] [place] [address] Oct, Crohn's disease of large intestine with rectal bleeding K50.111 [facility] [address] [place] [address] Sep, [facility] [address] [place] [address] Sep, Other prison (current) drug therapy Z79.899 and Crohn's disease of large intestine without complications K50.10 [facility] [address] [place] [address] Sep, [facility] [address] [place] [address] Sep, Crohn's disease of large intestine without complications K50.10 [facility] [address] [place] [address] Jun, Crohns disease of large intestine without complication K50.10 ; Chronic idiopathic constipation K59.04 and Drug therapy Z79.899 [facility] [address] [place] [address] Apr, [facility] [address] [place] [address] Apr, [facility] [address] [place] [address] Mar, [facility] [address] [place] [address] Mar, Drug therapy Z79.899 and Crohn''s disease without complication, unspecified gastrointestinal tract location K50.90 [facility] [address] [place] [address] February, Drug therapy Z79.899 and Crohn''s disease without complication, unspecified gastrointestinal tract location K50.90 [facility] [address] [place] [address] Jan, [facility] [address] [place] [address] Jan, Crohn''s disease of colon without complication K50.10 [facility] [address] [place] [address] Dec, [facility] [address] [place] [address] Dec, [facility] [address] [place] [address] Dec, Crohn's disease of large intestine without complication K50.10 and Chronic idiopathic constipation K59.04 [facility] [address] [place] [address] 14 Dec, 2018 [facility] [address] [place] [address] Nov, Crohn's disease of large intestine without complication K50.10 [facility] [address] [place] [address] Oct, [facility] [place] [address] [place] [id number] Oct, [facility] [address] [place] [address] Sep, [facility] [address] [place] [address] Sep, Crohn's disease of large intestine without complication K50.10 [facility] [address] [facility] [place] [address] Sep, [facility] [address] [place] [address] Aug, [facility] [address] [place] [address] [place] [address] Jul, [facility] [address] [place] [address] Jul, Crohns disease of large intestine without complication K50.10 [facility] [address] [place] [address] Jul, [facility] [address] [place] [address] February, Crohn's disease of large intestine without complication K50.10 [facility] [address] [place] [address] February, Crohn's disease of large intestine without complication K50.10 [facility] [address] [place] [address] February, [facility] [address] [place] [address] Jul, [facility] [address] [place] [address] Jul, Crohns disease of large intestine without complication K50.10 and Gastroesophageal reflux disease without esophagitis K21.9 [facility] [address] [place] [address] Jan, [facility] [address] [place] [address] Jan, [facility] [address] [place] [address] Dec, [facility] [address] [place] [address] Dec, [facility] [address] [place] [address] Dec, [facility] [address] [place] [address] Dec, [facility] [address] [place] [address] Dec, [facility] [address] [place] [address] Nov, [facility] [address] [place] [id number] Nov, Crohns disease of large intestine without complication K50.10 and Gastroesophageal reflux disease without esophagitis K21.9 [facility] [address] [place] [address] Nov, Crohns disease of large intestine without complication K50.10 [facility] [address] [place] [address] Nov, [facility] [address] [place] [address] Oct, [facility] [address] [place] [address] Oct, Crohns disease of large intestine without complication K50.10 and Gastroesophageal reflux disease without esophagitis K21.9 [facility] [address] [place] [address] Oct, [facility] [address] [place] [address] Oct, [facility] [address] [place] [address] Jul, [facility] [address] [place] [address] Mar, [facility] [address] [place] [address] Mar, [facility] [address] [place] [address] Mar, [facility] [address] [place] [address] Mar, Crohns disease of large intestine without complication K50.10 [facility] [address] [place] [address] February, [facility] [address] [place] [address] Jan, [facility] [address] [place] [address] Jan, [facility] [address] [place] [address] Nov, [facility] [address] [place] [address] Nov, Gastroesophageal reflux disease without esophagitis K21.9 and Crohns disease of large intestine without complication K50.10 [facility] [address] [place] [address] Jul, [facility] [address] [place] [address] Jun, [facility] [address] [place] [address] May, [facility] [place] [address] [place] [address] [place] [id number] Apr, [facility] [address] [place] [address] Mar, [facility] [address] [place] [address] February, [facility] [address] [place] [address] February, [facility] [address] [place] [address] Jan, Crohn's disease, large intestine 555.1 [facility] [address] [place] [address] Nov, [facility] [address] [place] [address] Oct, [facility] [address] [place] [address] Sep, [facility] [address] [place] [address] Jul, [facility] [address] [place] [address] Jul, [facility] [address] [place] [address] Jul, [facility] [address] [place] [address] Jul, Crohn's disease, large intestine 555.1 [facility] [address] [place] [address] Jun, [facility] [address] [place] [address] Apr, [facility] [address] [place] [address] Jan, Regional enteritis of large intestine 555.1 [facility] [address] [place] [address] Dec, [facility] [address] [place] [address] Dec, [facility] [address] [place] [address] Oct, [facility] [address] [place] [address] Oct, [facility] [address] [place] [address] Oct, [facility] [address] [place] [address] Oct, Crohn's disease, large intestine 555.1 and Abdominal pain 789.00 [facility] [address] [place] [address] Jan, Crohn's disease, large intestine 555.1 ; Fatigue 780.79 and Weight loss 783.21 [facility] [address] [place] [address] Dec, [facility] [address] [place] [address] Oct, [facility] [address] [place] [address] Oct, [facility] [address] [place] [address] Oct, Crohn's disease, large intestine 555.1 [facility] [address] [place] [address] Oct, [facility] [address] [place] [address] Oct, Crohn's disease, large intestine 555.1 and Abdominal pain 789.00 [facility] [address] [place] [address] Sep, [facility] [address] [place] [address] Sep, [facility] [address] [place] [address] Aug, [facility] [address] [place] [address] Aug, [facility] [address] [place] [address] Aug, Diarrhea 787.91 [facility] [address] [place] [address] Jul, [facility] [address] [place] [address] Jul, [facility] [address] [place] [address] Jun, [facility] [address] [place] [address] Aug, [facility] [address] [place] [address] Jul, [facility] [address] [place] [phone] Dec, [facility] [address] [place], [place] [id number] Nov, [facility] [address] [place] [phone] Oct, 2010 [facility] [address] [facility] [place] [id number] Jul, [facility] [address] [place] [id number] Jun, [facility] [address] [place], [place] [id number] Nov, [facility] [address] [place] [id number] Jul, [facility] [address] [place] [id number] Jan, [facility] [address] [place] [id number] Jul, [facility] [address] [place] [id number] Dec, [facility] [address] [place] [id number] Jun, [facility] [address] [place] [id number] Dec, [facility] [address] [place] [id number] Sep, [facility] [address] [facility] [place] [id number] Jul, IMMUNIZATIONS Vaccine Route Administration Date Status [...] TABLET BY MOUTH DAILY 30 days Active Gabapentin 300 MG Active MiraLax (colon prep) 17 GM/SCOOP Orally [...] day 1 suppository 12h Oct, 30 days Not-Taki ng Toujeo SoloStar 300 UNIT/ML Subcutaneous daily 14units 24h Active Golytely 236 GM Orally every 15 minutes as directed before colonoscopy Dec, 1 day(s) Active Vitamin C 500 MG Orally Once a day 1 tablet 24h Active Loratadine 10 MG Orally Once a day 1 tablet 24h 30 day(s) Active PARoxetine HCl A ctive Fluconazole 200 MG 1 tablet Apr, 12 day(s) Active PROCEDURES Procedure Date Ordered Result Body [...] are suspected. CULTURE, STOOL REASON FOR VISIT Results of CT , not feeling well and high fevers, linzess increase? pa for stelara(approved), crohn's large intestine, labs, labs, bowel prep, Patient presents today for crohn's, stelera, covid , Patient presents today for crohn's, refill hyocyamine Sulfate ER 0.375, pantoprazole refill, labs, azath ioprine/waiting on pt call back, Patient presents today for crohn's, ? on , COVID POSITIVE [...] presents today for crohn's, crohn's, Stelara, ? on the Prednisone, fyi update, Crohn's disease/Stelara, patient has questions/patient called back and update, INCREASE OF IMURAN, crohn's disease, Up date-Feeling no better, Not any better, labs,Crohn's, FMLA paperwork/update on stelara, Patient presents today for crohn's, having flairs still, labs in 3 weeks, Flair/trush, crohn flair up , Patient presents today for 6 month follow up for Crohns, Patient received a note that her Humira was denied., Clovis, Clovis PA weekly dosing, RE: Two pills, Clovis Coley, labs, Brijesh PA, Patient presents today for starting on Imuran, Humira, RE: Humira , RE: Path , Crohn's, Worse over the weekend, crohns flair up , Having some issues, RE: Prednisone, YEARLY, Patient presents today for crohn's disease,Put on one year OV follow up, CT/labs, stomach distended , Humira, Miralax prep, PATIENT PRESENTS TODAY FOR crohn's disease , refill, headache, gi bleeding, ? on Humira Injection, RE: Clovis , Never got her Humira until today, Crohn's flair up, Pt having Inflamation,pressure,spasm's,bloating & abd pain, ? on changing her meds, GERD, Chron's, Needs RX for Colyte, Prednisone, call back, PATIENTPRESENTS TODAY WITH CROHNS, crohns symptoms, Crohn's flair up, Humira, having some bowel issues, [place] PA, Put on one year OV follow up, Follow up, Humira, crohn's, Has questions about Humira, PUT ONE ONE YEAR OV RECALL, reflux, humira injection, has questions, flare ups since stopping balsalazide, Crohn's, Humira, Humira, Humira PA, follow up humira , enlarged lymph node neck, Humira, humeria, Humira, Cimzia not covered, Staring Cimzia, Discuss Humira, FMLA, wondering about a biologic, Crohnsflair up, Needs jury duty letter , refill, med question, Looking for Rx Bentyl, Put on one year OV follow up, follow up for colitis, f/u, been off prednisone, RE: Prednisone, thrush on the tongue, colonoscopy 12-13-2010, Inflammatory bowel disease, having a flare up, Symptoms, Prednisone Dose, still having issues, refill, would like a call back, tongue is swelling and has white spots, ?flare up ofCrohn's Insurance Providers Health Insurance Type Health Plan Insurance Address Health Plan Insurance Phone Health Plan Insurance Name Health Plan Coverage Dates Member ID Patient Relationship to Subscriber Patient Address Patient Phone Patient Name Patient Date of Subscriber ID Subscriber Name Subscriber Date of Group No [facility] [facility] [address] [facility] [place] [id number] [phone] HEALTH VICTOR self JUDY GRAY [id number] U[employer] [address] [address] [facility] [id number] U[employer] self JUDY GRAY [id number] [employer] [place] [address] [address] [facility] [phone] [employer] [place] self JUDY GRAY [id number] [employer] [place] [address] [address] [facility] [id number] [phone] [employer] [place] self JUDY GRAY [id number]
--- NOTE | 2023-05-25 15:26 | MHC.OFFVIS ---
Intake Vital Signs 05/25/23 15:49 Height 5 ft 2 in BP 118/70 Pulse 120 H Pulse Oximetry (%) 98 Intake Visit Reasons: ref.,fever,unpecified Allergies cephalexin Allergy (Unknown, Verified 05/25/23 15:36) RASH Penicillins Allergy (Unknown, Verified 05/25/23 15:36) RASH Sulfa (Sulfonamide Antibiotics) Allergy (Unknown, Verified 05/25/23 15:36) RASH HPI ref.,fever,unpecified HPI Details She has had fever daily for two weeks. She has no localizing signs except myalgias. Bloodwork negative so far. 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 If so, by whom?: No Do you feel safe in your current relationship?: Yes Is there a partner from a previous relationship who is making you feel unsafe now?: No Are you made to feel afraid or neglected: No Advance Directives: No Advance Directives Information Provided: Yes Do you have thoughts of harming others: None Do you have a plan to hurt others: No Plan Recently lost weight without trying: No Nutrition Risks: No Nutritional Risk Patient : No : No Poor oral hygiene: No service: No Current occupational status: employed Cognitive needs: No Hearing needs: No Vision needs: Yes Review of Systems Const All systems reviewed & are unremarkable except as noted in HPI and below Physical Exam Vital Signs: Last Vital Signs Pulse 120 H 05/25/23 15:49 BP 118/70 05/25/23 15:49 Pulse Ox 98 05/25/23 15:49 Const General: cooperative Orientation/consciousness: patient oriented x3 HEENT Head: Yes normal to inspection Mouth: Normal oral and palatal mucosa present Eyes General: appearance normal, both eyes and all related structures Pupils: Equal, round and reactive pupils present Resp Effort & Inspection: normal respiratory effort Cardio Rate: regular rate Rhythm: regular rhythm GI Palpation (GI): Soft to palpation and nontender General: Yes no CVA tenderness Back/Spine/Pelvis Back: no CVA tenderness Skin General skin exam: no rashes or lesions noted Neuro General: patient oriented x3 Cranial nerves: Yes CN's II-XII intact bilaterally and Yes Equal, round and reactive pupils present Extrem General: Yes normal to inspection Psych Appearance: grossly normal Assessment & Plan Assessment & Plan (1) Fever of unknown origin: Comment: She is tachypneic and tachycardic with fever She needs evaluation PE Code(s): R50.9 - Fever, unspecified Plan: ER for evaluation and likely admission. (2) Elevated LFTs: Code(s): R79.89 - Other specified abnormal findings of blood chemistry (3) Abdominal pain: Code(s): R10.9 - Unspecified abdominal pain Medications: Discontinued insulin glargine U-300 conc 11 units (0.0367 mL) subcut DAILY 30 days 1.101 mL 6RF E10.9 - Type 1 diabetes mellitus without complications Coding Level of Care Code New Pt Level 3 (11495) Diagnoses Fever of unknown origin R50.9 Elevated LFTs R79.89 Abdominal pain R10.9
[2023-05-25 15:49] VITALS: BP 118/70; PULSE 120; O2SAT 98
== END 2023-05-25 16:07 | disposition home or self-care (01) ==
LOC: HO.HID 15:09
PROVIDERS: PCP Internal Medicine; Visit Provider Internal Medicine
DX: R50.9 Fever, unspecified (principal); R79.89 Other specified abnormal findings of blood chemistry; R10.9 Unspecified abdominal pain
CPT/HCPCS: 99203

== ENCOUNTER → 2023-05-25 15:09 | Outpatient (BNVA) | payer OTHER, SELFPAY | PROVIDERS: PCP Internal Medicine; Visit Provider Internal Medicine ==

== ENCOUNTER 2023-05-25 20:33 | Inpatient (IN) | payer OTHER, SELFPAY ==
--- NOTE | ~2023-05-25 | MR_ITS ---
EXAMINATION: MR BRAIN WITH AND WITHOUT CONTRAST CLINICAL INFORMATION: Fever, headache, evaluate sellar tumor COMPARISON: CT head 07/31/2009 TECHNIQUE: MRI of the brain was obtained using routine sequences before and following administration of intravenous contrast. A total of 6.5 mL of Gadavist was administered intravenously. FINDINGS: 3 mm hypoenhancing versus nonenhancing lesion within the left posterior paramidline pituitary gland may reflect a pars intermedia cyst or cystic pituitary macroadenoma and can be correlated with pituitary function tests. The infundibulum is slightly deviated to the right of midline. No suprasellar extension or mass effect along the optic apparatus. Normal symmetric enhancement of the cavernous sinuses. No acute infarct. No extra-axial fluid collection. The ventricles and sulci are normal in size and configuration without significant volume loss or hydrocephalus. No abnormal intraparenchymal or leptomeningeal enhancement. No significant mass effect or herniation pattern. The intracranial dural venous sinus and arterial flow voids are preserved. The orbits are grossly unremarkable. Trace ethmoid mucosal thickening. No mastoid effusion. T1 hypointense marrow signal of the calvarium may reflect red marrow conversion in the setting of anemia and can be correlated with CBC. MR/MR head/brain wo/w con IMPRESSION: 1. 3 mm hypoenhancing versus nonenhancing lesion within the left posterior paramidline pituitary gland may reflect a pars intermedia cyst or cystic pituitary macroadenoma and can be correlated with pituitary function tests. 2. 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 3. T1 hypointense marrow signal of the calvarium may reflect red marrow conversion in the setting of anemia and can be correlated with CBC.
--- NOTE | ~2023-05-25 | CT_ITS ---
EXAMINATION: CT ANGIOGRAM OF THE CHEST WITH AND WITHOUT CONTRAST (CT PULMONARY ANGIOGRAM FOR PE) CT ABDOMEN AND PELVIS WITH IV CONTRAST CLINICAL INFORMATION: Left-sided chest pain, fever, tachycardia, elevated d-dimer. COMPARISON: CT abdomen/pelvis 05/19/2023 and 09/02/2022. TECHNIQUE: Prior to contrast administration, noncontrast localization images were obtained. Subsequently, multidetector volumetric imaging was performed from the thoracic inlet to the pubic symphysis through the chest, abdomen, and pelvis following the administration of 80 mL Omnipaque 350 intravenous contrast. No contrast reaction reported Sagittal, coronal, and MIP oblique sagittal (through the chest only) reformatted images were obtained on the CT workstation, uploaded to PACS, and reviewed. Total exam dose-length product 220 and 470 mGy-cm This CT examination was performed using dose optimization techniques as appropriate, variously including the following: *Automated exposure control *Adjustment of mA and/or kV according to patient size (this includes techniques or standardized protocols for targeted exams where dose is matched to indication/reason for exam; i.e. extremities or head) *Use of iterative reconstruction technique FINDINGS: QUALITY OF STUDY/CONTRAST BOLUS: Suboptimal. PULMONARY ARTERIES: No central pulmonary emboli. No large segmental pulmonary emboli, although evaluation is somewhat limited due to motion as well as attenuation achieved in the pulmonary arteries which is similar to the aorta and pulmonary veins. THORACIC AORTA: No aneurysm or dissection. LUNG: No focal consolidation or significant groundglass disease. Central airways are patent. Azygos fissure. No suspicious pulmonary nodule or mass. PLEURA: No pleural effusion or pneumothorax. MEDIASTINUM: Normal heart size. Trace amount of pericardial fluid. Coronary artery calcifications are mild. No hilar or mediastinal lymphadenopathy. No evidence of septal bowing or right heart strain. Normal appearance of the thyroid gland. CHEST WALL/AXILLA: Fairly symmetric bilateral axillary lymph nodes with preserved fatty devan, likely reactive. ABDOMEN/PELVIS: LIVER, GALLBLADDER AND BILIARY TREE: The liver is normal in size, shape, and attenuation. No focal hepatic lesion or biliary ductal dilatation is present. The gallbladder is unremarkable with no evidence of radiopaque gallstones, gallbladder wall thickening, or obvious pericholecystic inflammatory changes. PANCREAS: Normal; no mass or surrounding fluid. SPLEEN: Normal size. No focal lesion. ADRENAL GLANDS: Normal; no mass. KIDNEYS AND URETERS: The kidneys are normal in size, shape, and attenuation. No hydronephrosis, hydroureter, or calculi. GASTROINTESTINAL TRACT: Chronic rectal wall thickening with associated perirectal lymphadenopathy, stable compared to 05/19/2023 and 09/02/2022. No free air or organized extraluminal collection. Trace amount of free fluid in the pelvis is unchanged compared to 05/19/2023 and 09/02/2022. The stomach and the small bowel are nondilated. Normal appendix. No significant pericolonic fat stranding. No evidence of bowel obstruction. ABDOMINAL WALL: No significant hernia is appreciated. LYMPHOVASCULAR STRUCTURES: As above, chronic perirectal lymphadenopathy. Additional chronic periportal lymphadenopathy. No new or enlarging lymph nodes. Normal caliber abdominal aorta with scattered atherosclerotic disease. BLADDER: No focal mass or wall thickening seen. No bladder calculi. PELVIC VISCERA: Unremarkable. OSSEOUS STRUCTURES: Unchanged intervertebral disc height loss with increased sclerosis at L4-L5. No acute or aggressive appearing osseous abnormalities. CT/CT angio chest PE protocol IMPRESSION: 1. No evidence of central pulmonary emboli. No evidence of large segmental pulmonary emboli although evaluation is somewhat limited due to motion and timing of IV contrast. 2. Chronic rectal wall thickening with associated perirectal lymphadenopathy, stable compared to 05/19/2023 and 09/02/2022. In this patient with history of Crohn's disease, continue follow-up and close attention with GI specialist and colonoscopy is recommended in view of high risk factors for colonic and rectal malignancy. 3. Chronic nonspecific periportal lymphadenopathy. VTE: negative
--- NOTE | ~2023-05-25 | XR_ITS ---
EXAMINATION: XR CHEST CLINICAL INFORMATION: Fever, cough, rhonchi. COMPARISON: 05/25/2023 chest radiograph. TECHNIQUE: Frontal view of the chest was obtained. FINDINGS: No significant abnormality is noted involving the heart, lungs, mediastinum, bony thorax or soft tissues. XR/XR chest 1V IMPRESSION: No acute cardiopulmonary process.
--- NOTE | ~2023-05-25 | XR_ITS ---
EXAMINATION: XR CHEST CLINICAL INFORMATION: Cough, fever. COMPARISON: Chest radiograph 05/15/2023. TECHNIQUE: Frontal view of the chest was obtained. FINDINGS: No significant abnormality is noted involving the heart, lungs, mediastinum, bony thorax or soft tissues. XR/XR chest 1V IMPRESSION: Unremarkable examination.
[2023-05-25 20:45] VITALS: BP 134/83; PULSE 147; RESP 18; TEMP 39.3; O2SAT 100; BMI 26.0
--- OUTSIDE RECORDS SUMMARY | 2023-05-25 21:07 | XMS_ITS ---
Author Name Satinder Correa Jr Address [address] [place] [address] Organization [facility] Address [address] [place] [address] Care Team Providers Care Development Spec Name Role Phone Sunny Satinder Unavailable [phone] PROBLEMS Type Condition ICD9-CM Code YKR17-MX Code Onset Dates Condition Status SNOMED Code Problem Gastroesophageal reflux disease without esophagitis K21.9 Active 75390550 5 Problem Chronic idiopathic constipation K59.04 Active 67974991 Problem Crohn''s disease without complication, unspecified gastrointestinal tract location K50.90 Active 64448232 Problem Irritable bowel syndrome with constipation and diarrhea K58.2 Active 33806755 Problem Crohn's disease of colon K50.10 Active Problem Drug therapy Z79.899 Active 014819129 Problem Crohn's disease of large intestine without complications K50.10 Active 4331717 Problem Crohn's disease of large intestine with rectal bleeding K50.111 Active 8699463 Problem Irritable bowel syndrome with constipation K58.1 Active 397169275 ALLERGIES Substance Reaction Event Type Date Status Sulfa Unknown Drug Allergy Dec, Active Keflex Unknown Drug Allergy Dec, Active Penicillin Unknown Drug Allergy Dec, Active Zithromax Z-Zackary Unknown Drug Allergy Dec, Activ e Bactrim Unknown Drug Allergy Dec, Active ENCOUNTERS Encounter Location Date Diagnosis [facility] [address] [place] [address] Apr, [facility] [address] [place] [address] Apr, Elevated LFTs R79.89 [facility] [address] [place] [address] 27 Jan, 2023 [facility] [address] [place] [id number] Jan, Crohn's disease of colon K50.10 [facility] [address] [place] [address] Jan, [facility] [address] [place] [address] 30 Dec, 2022 [facility] [address] [place] [address] 16 Dec, 2022 [facility] [address] [place] [address] Dec, Crohn's disease of large intestine without complications K50.10 ; Gastroesophageal reflux disease without esophagitis K21.9 and Chronic idiopathic constipation K59.04 [facility] [address] [place] [address] Oct, [facility] [address] [place] [address] Oct, [facility] [address] [place] [address] Aug, [facility] [address] [place] [address] Jun, [facility] [address] [place] [id number] 28 Mar, 2022 [facility] [address] [place] [address] Mar, [facility] [address] [place] [address] 16 Mar, 2022 Crohn's disease of large intestine with rectal bleeding K50.111 ; Gastroesophageal reflux disease without esophagitis K21.9 and Irritable bowel syndrome with constipation and diarrhea K58.2 [facility] [address] [place] [address] Nov, [facility] [address] [place] [address] Oct, [facility] [address] [place] 17 Sep, 2021 [facility] [address] [place] [address] 16 Sep, 2021 [facility] [address] [place] [address] 16 Sep, 2021 Crohn's disease of large intestine with rectal bleeding K50.111 ; Chronic idiopathic constipation K59.04 and Gastroesophageal reflux disease without esophagitis K21.9 [facility] [address] [place] [address] May, [facility] [address] [place] [address] 08 Apr, 2021 [facility] [address] [place] [address] 28 Mar, 2021 Crohn''s disease without complication, unspecified gastrointestinal tract location K50.90 [facility] [address] [place] [address] 18 Mar, 2021 [facility] [address] [place] 17 Mar, 2021 Crohn's disease of large intestine with rectal bleeding K50.111 ; Gastroesophageal reflux disease without esophagitis K21.9 and Chronic idiopathic constipation K59.04 [facility] [address] [place] [address] 26 Jan, 2021 [facility] [address] [place] 12 Jan, 2021 [facility] [address] [place] Jan, [facility] [address] [place] 29 Dec, 2020 [facility] [address] [place] [address] 11 Dec, 2020 [facility] [address] [place] [address] 27 Oct, 2020 [facility] [address] [place] [address] Aug, [facility] [address] [place] [address] Aug, Crohn's disease of large intestine without complications K50.10 ; Gastroesophageal reflux disease without esophagitis K21.9 and Irritable bowel syndrome with constipation K58.1 [facility] [address] [place] [address] Jul, [facility] [address] [place] [address] Mar, Crohn's disease of large intestine with rectal bleeding K50.111 [facility] [address] [place] [address] February, Crohn's disease of large intestine without complications K50.10 [facility] [address] [facility] [place] [address] Dec, [facility] [address] [place] [address] [place] [address] Nov, [facility] [address] [facility] [place] Nov, [facility] [address] [place] [address] Nov, [facility] [address] [place] [address] [place] [address] Oct, [facility] [address] [place] [address] Oct, [facility] [place] [address] [place] [id number] Oct, [facility] [address] [place] [address] [place] [address] Oct, [facility] [address] [place] [address] Oct, [facility] [address] [place] [address] [place] Oct, [facility] [address] [place] [address] Oct, [facility] [address] [place] [address] Oct, Crohn's disease of large intestine with rectal bleeding K50.111 [facility] [address] [place] [address] Sep, [facility] [address] [place] [address] Sep, Other detention (current) drug therapy Z79.899 and Crohn's disease of large intestine without complications K50.10 [facility] [address] [place] [address] Sep, [facility] [address] [place] [address] Sep, Crohn's disease of large intestine without complications K50.10 [facility] [address] [place] [address] Jun, Crohns disease of large intestine without complication K50.10 ; Chronic idiopathic constipation K59.04 and Drug therapy Z79.899 [facility] [address] [place] [address] Apr, [facility] [address] [place] [address] Apr, [facility] [address] [place] [address] Mar, [facility] [address] [place] [address] Mar, Drug therapy Z79.899 and Crohn''s disease without complication, unspecified gastrointestinal tract location K50.90 [facility] [address] [place] [address] February, Drug therapy Z79.899 and Crohn''s disease without complication, unspecified gastrointestinal tract location K50.90 [facility] [address] [place] [address] Jan, [facility] [address] [place] [address] Jan, Crohn''s disease of colon without complication K50.10 [facility] [address] [place] [address] Dec, [facility] [address] [place] [address] Dec, [facility] [address] [place] [address] Dec, Crohn's disease of large intestine without complication K50.10 and Chronic idiopathic constipation K59.04 [facility] [address] [place] [address] 14 Dec, 2018 [facility] [address] [place] [address] Nov, Crohn's disease of large intestine without complication K50.10 [facility] [address] [place] [address] Oct, [facility] [place] [address] [place] [id number] Oct, [facility] [address] [place] [address] Sep, [facility] [address] [place] [address] Sep, Crohn's disease of large intestine without complication K50.10 [facility] [address] [facility] [place] [address] Sep, [facility] [address] [place] [address] Aug, [facility] [address] [place] [address] [place] [address] Jul, [facility] [address] [place] [address] Jul, Crohns disease of large intestine without complication K50.10 [facility] [address] [place] [address] Jul, [facility] [address] [place] [address] February, Crohn's disease of large intestine without complication K50.10 [facility] [address] [place] [address] February, Crohn's disease of large intestine without complication K50.10 [facility] [address] [place] [address] February, [facility] [address] [place] [address] Jul, [facility] [address] [place] [address] Jul, Crohns disease of large intestine without complication K50.10 and Gastroesophageal reflux disease without esophagitis K21.9 [facility] [address] [place] [address] Jan, [facility] [address] [place] [address] Jan, [facility] [address] [place] [address] Dec, [facility] [address] [place] [address] Dec, [facility] [address] [place] [address] Dec, [facility] [address] [place] [address] Dec, [facility] [address] [place] [address] Dec, [facility] [address] [place] [address] Nov, [facility] [address] [place] [id number] Nov, Crohns disease of large intestine without complication K50.10 and Gastroesophageal reflux disease without esophagitis K21.9 [facility] [address] [place] [address] Nov, Crohns disease of large intestine without complication K50.10 [facility] [address] [place] [address] Nov, [facility] [address] [place] [address] Oct, [facility] [address] [place] [address] Oct, Crohns disease of large intestine without complication K50.10 and Gastroesophageal reflux disease without esophagitis K21.9 [facility] [address] [place] [address] Oct, [facility] [address] [place] [address] Oct, [facility] [address] [place] [address] Jul, [facility] [address] [place] [address] Mar, [facility] [address] [place] [address] Mar, [facility] [address] [place] [address] Mar, [facility] [address] [place] [address] Mar, Crohns disease of large intestine without complication K50.10 [facility] [address] [place] [address] February, [facility] [address] [place] [address] Jan, [facility] [address] [place] [address] Jan, [facility] [address] [place] [address] Nov, [facility] [address] [place] [address] Nov, Gastroesophageal reflux disease without esophagitis K21.9 and Crohns disease of large intestine without complication K50.10 [facility] [address] [place] [address] Jul, [facility] [address] [place] [address] Jun, [facility] [address] [place] [address] May, [facility] [address] [place] [address] [place] [id number] Apr, [facility] [address] [place] [address] Mar, [facility] [address] [place] [address] February, [facility] [address] [place] [address] February, [facility] [address] [place] [address] Jan, Crohn's disease, large intestine 555.1 [facility] [address] [place] [address] Nov, [facility] [address] [place] [address] Oct, [facility] [address] [place] [address] Sep, [facility] [address] [place] [address] Jul, [facility] [address] [place] [address] Jul, [facility] [address] [place] [address] Jul, [facility] [address] [place] [address] Jul, Crohn's disease, large intestine 555.1 [facility] [address] [place] [address] Jun, [facility] [address] [place] [address] Apr, [facility] [address] [place] [address] Jan, Regional enteritis of large intestine 555.1 [facility] [address] [place] [address] Dec, [facility] [address] [place] [address] Dec, [facility] [address] [place] [address] Oct, [facility] [address] [place] [address] Oct, [facility] [address] [place] [address] Oct, [facility] [address] [place] [address] Oct, Crohn's disease, large intestine 555.1 and Abdominal pain 789.00 [facility] [address] [place] [address] Jan, Crohn's disease, large intestine 555.1 ; Fatigue 780.79 and Weight loss 783.21 [facility] [address] [place] [address] Dec, [facility] [address] [place] [address] Oct, [facility] [address] [place] [address] Oct, [facility] [address] [place] [address] Oct, Crohn's disease, large intestine 555.1 [facility] [address] [place] [address] Oct, [facility] [address] [place] [address] Oct, Crohn's disease, large intestine 555.1 and Abdominal pain 789.00 [facility] [address] [place] [address] Sep, [facility] [address] [place] [address] Sep, [facility] [address] [place] [address] Aug, [facility] [address] [place] [address] Aug, [facility] [address] [place] [address] Aug, Diarrhea 787.91 [facility] [address] [place] [address] Jul, [facility] [address] [place] [address] Jul, [facility] [address] [place] [address] Jun, [facility] [address] [place] [address] Aug, [facility] [address] [place] [address] Jul, [facility] [address] [place] [phone] Dec, [facility] [address] [place] [phone] Nov, [facility] [address] [place] [id number] [phone] Oct, 2010 [facility] [address] [facility] [place] [phone] Jul, [facility] [address] [place] [id number] Jun, [facility] [address] [place], [place] [phone] Nov, [facility] [address] [place] [id number] Jul, [facility] [address] [place] [id number] Jan, [facility] [address] [place] [id number] Jul, [facility] [address] [place] [id number] Dec, [facility] [address] [place] [id number] Jun, [facility] [address] [place] [id number] Dec, [facility] [address] [place] [id number] Sep, [facility] [address] [facility] [place] [phone] Jul, IMMUNIZATIONS Vaccine Route Administration Date Status [...] rsn no tbco scrn Oct 10, 2021 INIT [facility] CPLX Nov 16, 2019 Pt scrn tbco id as non user April 10, 2022 TOBACCO NON-USER Aug 29, 2020 TV 21+ [...] VERIFIED W/PT OR RE April 10, 2022 DOC MEDS VERIFIED W/PT OR RE January [...] [employer] [place] [address] [address] [facility] [address] [phone] [employer] [place] self JUDY GRAY [id number] UMR [address] [address] [facility] [address] UMR self JUDY GRAY [id number] [employer] [place] [place] [address] [address] [facility] [address] [phone] BLUE [employer] [place] JUDY GRAY [id number] [facility] [address] [place] [address] [place] [address] [facility] shanna GRAY [id number]
[2023-05-25 21:39] LABS: Lactic Acid 2.4 mmol/L (0.5-2.0)
[2023-05-25 21:40] LABS: Alanine Aminotransferase 48 U/L (0-31); Albumin Level 2.7 g/dL (3.5-5.0); Alkaline Phosphatase 164 U/L (39-117); Anion Gap 16 (12-20); Aspartate Amino Transferase 118 U/L (5-31); Bilirubin Total 0.4 mg/dL (0.0-1.0); Blood Urea Nitrogen 10 mg/dL (9-16); Calcium 8.1 mg/dL (8.4-10.2); Carbon Dioxide 22 mmol/L (22-29); Chloride 100 mmol/L (96-108); Creatinine Clr Calc Pharmacy 95.4; Estimated Glomerular Filt Rate > 60; Glucose Random 141 mg/dL (60-115); Potassium 3.7 mmol/L (3.3-5.1); Sodium 134 mmol/L (135-145); Total Protein 6.1 g/dL (6.5-8.0)
[2023-05-25 21:41] LABS: COVID-19 Test Negative (Negative); IDNOW Serial# BCCEAD1C
[2023-05-25 21:42] LABS: Basophils Percent Auto 0.5 % (0-2); Eosinophils Percent Auto 0.3 % (0-4); Hematocrit 31.4 % (37.0-47.0); Hemoglobin 10.7 g/dl (12.0-16.0); Imm Gran Abs Auto 0.16 X10*3/uL (0.00-0.03); Imm Gran Pct Auto 2.2 % (0.0-0.4); Lymphocytes Absolute Auto 3.7 X10*3/uL (1.2-4.9); Lymphocytes Percent Auto 50.6 % (20-40); MANUAL DIFF FLAG SCAN; Mean Corpuscular HGB Conc 34.1 g/dl (31.0-35.0); Mean Corpuscular Hemoglobin 32.2 pg (27.0-33.0); Mean Corpuscular Volume 94.6 fL (80.0-98.0); Mean Platelet Volume 10.8 fL (9.4-12.3); Monocytes Absolute Auto 0.5 X10*3/uL (0.1-1.2); Monocytes Percent Auto 6.6 % (2-11); Neutrophils Absolute Auto 2.9 x10*3/uL (2.0-8.3); Neutrophils Percent Auto 39.8 % (45-73); Platelet Count 361 X10*3/uL (160-400); Red Blood Count 3.32 X10*6/uL (4.20-5.50); Red Cell Distribution Width 14.2 % (11.0-16.0); SCAN SMEAR FLAG 1; White Blood Count 7.3 X10*3/uL (4.8-10.8)
[2023-05-25 22:00] LABS: IDNOW Serial# BCCEAD1C; Influenza A Negative (Negative); Influenza B2 Negative (Negative)
--- NOTE | 2023-05-25 22:02 | ED_ITS ---
HPI - General Adult General Chief complaint: General Medical Stated complaint: fever,sob,tachycardia Time Seen by Provider: 05/25/23 21:06 Source: patient Mode of arrival: ambulatory Limitations: no limitations History of Present Illness HPI narrative: Patient comes to the emergency room complaining of high fever up to 103.0F daily for the last 2 weeks. Patient has been seen here in the ED, has been seen by infectious disease, PCP, Gastroenterology. There is no clear source of infection. For the last 2 days, patient developed a cough. Patient states that over the last 2 weeks, she has been treated for fluconazole for possible oral/esophageal candidiasis, clindamycin for a possible tooth infection which she is still taking. Patient complaining of diffuse body aches. The last time that she was here, she got tested for tick-borne diseases in everything was negative. Patient has history of Crohn's disease, is on Stelara, azathioprine. Patient states that she has not had any diarrhea or significant abdominal pain. Denies nausea vomiting diarrhea. Today, patient went to see Dr. Alanis from Infectious Disease, per patient, she was told that the fever is unlikely to be from infectious etiology. Patient was sent to the emergency room for further workup. Related Data Home Medications Medication Instructions Recorded Confirmed linaclotide 145 mcg capsule 145 mcg PO DAILY 08/21/20 05/19/23 hyoscyamine sulfate 0.375 mg 1 tab PO Q12H 10/29/20 05/19/23 tablet,extended release,12 hr ustekinumab 90 mg/mL subcutaneous 45 mg subcut 12/10/21 05/19/23 syringe (Stelara) tumeric 100 mg-radha 150 mg-olive 1 cap PO DAILY 07/31/22 05/19/23 50 mg-oreg 150 mg-caprylate capsule norethindrone 1.5 mg-ethinyl 1 tab PO DAILY 08/19/22 05/19/23 estradiol 30 mcg(21)/iron 75 mg(7) tablet (Aurovela Fe 1.5/30 (28)) azathioprine 50 mg tablet 100 mg PO DAILY 02/19/23 05/19/23 pantoprazole 40 mg tablet,delayed 40 mg PO DAILY 02/19/23 05/19/23 release insulin glargine U-300 conc 300 8 unit subcut DAILY 04/16/23 05/19/23 unit/mL (1.5 mL) subcutaneous pen (Toujeo SoloStar U-300 Insulin) ferrous gluconate 324 mg (38 mg 324 mg PO DAILY 05/25/23 iron) tablet Previous Rx's Medication Instructions Recorded pen needle, diabetic 32 gauge x 1 ea miscellaneous .5 times a day 07/01/22 5/32 (BD Monica 2nd Gen Pen Needle) 30 days #150 ea insulin pump cart,automated,BT #5 ea 09/04/22 (Omnipod 5 G6 Pods (Gen 5) subcutaneous cartridge) insulin pump cartridge,automated #1 ea 09/04/22 dose,BT with controller subcutaneous (Omnipod 5 G6 Intro Kit (Gen 5) subcutaneous cartridge with controller) gabapentin 600 mg tablet 600 mg PO TID 30 days #90 tabs 09/25/22 gabapentin 300 mg capsule 300 mg PO TID 30 days #90 caps 02/17/23 paroxetine HCl 25 mg 25 mg PO DAILY #90 tabs 02/19/23 tablet,extended release 24 hr ascorbate calcium (vitamin C) 500 500 mg PO DAILY #90 tabs 02/25/23 mg tablet cholecalciferol (vitamin D3) 25 25 mcg PO DAILY #90 caps 02/25/23 mcg (1,000 unit) capsule blood-glucose meter,continuous #1 ea 03/13/23 (Dexcom G7 Electronic Equipment Repairer) blood-glucose sensor (Dexcom G7 #3 ea 03/13/23 Sensor device) atorvastatin 40 mg tablet 40 mg PO DAILY #30 tabs 03/18/23 levofloxacin 500 mg tablet 500 mg PO DAILY #10 tabs 05/12/23 fluconazole 150 mg tablet 150 mg PO Q3D 2 doses #2 tabs 05/19/23 (Diflucan) Allergies Allergy/AdvReac Type Severity Reaction Status Date / Time cephalexin Allergy Unknown RASH Verified 05/25/23 15:36 Penicillins Allergy Unknown RASH Verified 05/25/23 15:36 Sulfa (Sulfonamide Allergy Unknown RASH Verified 05/25/23 15:36 Antibiotics) Review of Systems Review of Systems: Constitutional : No Weight loss, complaining of high fever and chills No Night Sweats, complaining of fatigue and generalized malaise, diffuse muscle aches ENT/Mouth : No Hearing loss, No Ear Pain, No Nasal Congestion, No Sinus Pain, No Hoarseness, No sore throat, No Rhinorrhea, No Swallowing Difficulty Eyes: No Eye Pain, No Swelling, No Redness, No Foreign Body, No Discharge, No Vision Changes Cardiovascular : No Chest Pain, No SOB, No Dyspnea on Exertion, No Orthopnea, No Edema, No Palpitations Respiratory : No Cough, No Sputum, No Wheezing, No Smoke Exposure, No Dyspnea Gastrointestinal : No Nausea, No Vomiting, No Diarrhea, No Constipation, No abdominal Pain, No Hematochezia, No Melena Genitourinary : no irregular bleeding, No Dysuria, No Urinary Frequency, No Hematuria, No Urinary Incontinence, No Urgency, No Flank Pain, No Urinary Flow Changes, No Hesitancy Musculoskeletal : No joint pain, complaining of diffuse Myalgias, No Joint Swelling Skin : No Skin Lesions, No rash Neuro : No Weakness, No Numbness, No Paresthesias, No Loss of Consciousness, No Dizziness, No Headache Psych : No Anxiety/Panic, No Depression, No SI/HI/AH/VH, No Social Issues, Heme/Lymph: No Bruising, No Bleeding,No Lymphadenopathy Endocrine : No Polyuria, No Polydipsia, No Temperature Intolerance PMFSH Past Medical History 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), 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 Normal pelvic exam Other specified mononeuropathies Postlaminectomy syndrome of lumbar region Spondylosis of lumbar region without myelopathy or radiculopathy Vitamin D deficiency Surgical History H/O tooth extraction History of hemilaminectomy History of root canal procedure Hx of colonoscopy Family History Family History Mother Tongue cancer Father Type 2 diabetes mellitus Retinopathy Neuropathy Angiopathy Blindness Renal failure Hypertension Cataract Skin cancer Paternal Uncle Substance use disorder Social History Social History Household Members: Spouse and Children Household Members Other:: , 2 sons (11. 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 Housing: House Alcohol intake: never Patient Tobacco Use Status: Never used Tobacco e-Cigarette/Vaping Use: Never Used Advance Directives: No Advance Directives Information Provided: Yes service: No Current occupational status: employed Cognitive needs: No Hearing needs: No Vision needs: Yes Physical Exam ED Vital Signs: Vital Signs - 24 hr 05/25/23 20:45 05/26/23 00:56 Temperature 102.8 F H 97.5 F Pulse Rate 147 H 114 H Respiratory Rate 18 13 Blood Pressure 134/83 125/68 Pulse Oximetry 100 97 Oxygen Delivery Method Room Air Room Air BMI result Body Mass Index 26.0 Const Other: Appearance: Alert. Oriented X3. No acute distress. Eyes: Pupils equal, round and reactive to light. ENT: Pharynx normal. Neck: Normal inspection. Neck supple. No lymph nodes noted. No crepitus CVS: Normal heart rate and rhythm. Pulses normal. Normal S1 and S2 Respiratory: No respiratory distress. Breath sounds normal. No Wheezing. No rales Abdomen: Soft and nontender. No rigidity. No distention. Skin: Skin very warm to touch , dry. Flushed skin color,. Normal skin turgor. Extremities: No lower extremity edema. No Lacerations. No Rash Neuro: Oriented X 3. No motor deficit. No sensory deficit. Moving all extremities. No slurred speech. CN 2 through 12 grossly intact Psych: calm, cooperative, slightly anxious/frustrated Course Course Course Narrative: -all of patient's labs and imaging pending -patient getting IV fluids, Tylenol. No clear source of infection at this time 11:14 p.m. I was asked to place an ultrasound-guided IV. The patient has a left upper arm 18 gauge IV placed by myself. Medications Administered Discontinued Medications Generic Name Dose Route Start Last Admin Trade Name Jarredq PRN Reason Stop Dose Admin Acetaminophen 975 mg 05/25/23 22:15 05/25/23 22:47 Acetaminophen 325 Mg Tablet PO 05/25/23 22:16 975 mg ONCE ONE Administration Sodium Chloride 1,932.3 mls @ 1,932.3 mls/hr 05/25/23 21:41 05/26/23 00:06 Ns 30 ml/kg infuse over 1 hr (1932.3 ml) 05/25/23 22:40 Infused IV Infusion .Q1H STA Iohexol 85 ml 05/25/23 23:52 05/25/23 23:53 Iohexol 350 Mg/Ml 100 Ml Infus..Btl IV 05/25/23 23:53 85 ml ONCE ONE Administration Medical Decision Making Medical Decision Making MDM Narrative: Patient did come in with a fever of 102.8. Patient given p.o. Tylenol -my interpretation of labs: Patient's white blood cell count 7.3, D-dimer significantly elevated, lactic acid 2.4, given fluids and improved to 1.2, electrolytes unremarkable. Patient has elevated LFTs, likely secondary to azathioprine, patient denies alcohol abuse -urinalysis negative for UTI -serology negative for COVID -patient gave us verbal consent to check for HIV given that we do not have a clear source of infection, unlikely to be HIV, we will repeat tick-borne diseases serology -I discussed the patient with Dr. Christensen, it remains unclear why patient has high fever Differential Diagnosis Differential Diagnoses: The differential diagnosis associated with the presen tation includes (Pneumonia, pulmonary embolism, UTI, left hip/pelvis infection from biopsy, tick-borne disease) Admission/Observation Consideration of admission/observation: Escalation of care including admission/observation considered Consult Healthcare Provider Management of the patient was discussed with: Hospitalist Lab Data MDM Lab Attestation statement: I reviewed the patient's lab results. 05/25/23 Unknown 05/25/23 Unknown Labs: Lab Results 05/25/23 05/25/23 05/25/23 Range/Units 22:06 22:06 Unknown WBC 7.3 (4.8-10.8) X10*3/uL RBC 3.32 L (4.20-5.50) X10*6/uL Hgb 10.7 L D (12.0-16.0) g/dl Hct 31.4 L D (37.0-47.0) % MCV 94.6 (80.0-98.0) fL MCH 32.2 (27.0-33.0) pg MCHC 34.1 (31.0-35.0) g/dl RDW 14.2 (11.0-16.0) % Plt Count 361 D (160-400) X10*3/uL MPV 10.8 (9.4-12.3) fL Immature Gran % (Auto) 2.2 H (0.0-0.4) % Neut % (Auto) 39.8 L (45-73) % Lymph % (Auto) 50.6 H (20-40) % [place] % (Auto) 6.6 (2-11) % Eos % (Auto) 0.3 (0-4) % Baso % (Auto) 0.5 (0-2) % Lymph # (Auto) 3.7 (1.2-4.9) X10*3/uL [place] # (Auto) 0.5 (0.1-1.2) X10*3/uL Eos # (Auto) 0.0 (0.0-0.4) X10*3/uL Baso # (Auto) 0.0 (0.0-0.2) X10*3/uL Abs Immat Gran (auto) 0.16 H (0.00-0.03) X10*3/uL Absolute Neuts (auto) 2.9 (2.0-8.3) x10*3/uL Absolute Nucleated RBC 0.000 (0.0-0.012) X10*3/uL Nucleated RBC % (auto) 0.0 (0.0-0.2) /100WBC Smear Tech's Comments VERIFIED D-Dimer High Sensitivty 5734 NG/ML Sodium (135-145) mmol/L Potassium (3.3-5.1) mmol/L Chloride (96-108) mmol/L Carbon Dioxide (22-29) mmol/L Anion Gap (12-20) BUN (9-16) mg/dL Creatinine (0.5-1.4) mg/dL Estim Creat Clear Calc Estimated GFR Random Glucose (60-115) mg/dL Lactic Acid (0.5-2.0) mmol/L Lactic Acid F/U @ 2Hr (0.5-2.0) mmol/L Calcium (8.4-10.2) mg/dL Total Bilirubin (0.0-1.0) mg/dL AST (5-31) U/L ALT (0-31) U/L Alkaline Phosphatase (39-117) U/L Total Protein (6.5-8.0) g/dL Albumin (3.5-5.0) g/dL Beta-Hydroxybutyrate 0.09 (0.02-0.27) mmol/L Urine Color Urine Appearance Urine pH (5.0-9.0) Ur Specific [place] (1.005-1.025) Urine Protein (Neg-Trace) mg/dL Urine Glucose (UA) (Negative) mg/dL Urine Ketones (Negative) mg/dL Urine Blood (Negative) Urine Nitrite (Negative) Ur Leukocyte Esterase (Negative) COVID-19 ([place]) (Negative) COVID-19 Clin Com Influenza Type A ([facility]) (Negative) Influenza Type B ([facility]) (Negative) Influenza A & B Note 05/25/23 05/25/23 05/25/23 Range/Units Unknown Unknown Unknown WBC (4.8-10.8) X10*3/uL RBC (4.20-5.50) X10*6/uL Hgb (12.0-16.0) g/dl Hct (37.0-47.0) % MCV (80.0-98.0) fL MCH (27.0-33.0) pg MCHC (31.0-35.0) g/dl RDW (11.0-16.0) % Plt Count (160-400) X10*3/uL MPV (9.4-12.3) fL Immature Gran % (Auto) (0.0-0.4) % Neut % (Auto) (45-73) % Lymph % (Auto) (20-40) % [place] % (Auto) (2-11) % Eos % (Auto) (0-4) % Baso % (Auto) (0-2) % Lymph # (Auto) (1.2-4.9) X10*3/uL [place] # (Auto) (0.1-1.2) X10*3/uL Eos # (Auto) (0.0-0.4) X10*3/uL Baso # (Auto) (0.0-0.2) X10*3/uL Abs Immat Gran (auto) (0.00-0.03) X10*3/uL Absolute Neuts (auto) (2.0-8.3) x10*3/uL Absolute Nucleated RBC (0.0-0.012) X10*3/uL Nucleated RBC % (auto) (0.0-0.2) /100WBC Smear Tech's Comments D-Dimer High Sensitivty NG/ML Sodium 134 L (135-145) mmol/L Potassium 3.7 (3.3-5.1) mmol/L Chloride 100 (96-108) mmol/L Carbon Dioxide 22 (22-29) mmol/L Anion Gap 16 (12-20) BUN 10 (9-16) mg/dL Creatinine 0.67 (0.5-1.4) mg/dL Estim Creat Clear Calc 95.4 Estimated GFR > 60 Random Glucose 141 H (60-115) mg/dL Lactic Acid 2.4 H* (0.5-2.0) mmol/L Lactic Acid F/U @ 2Hr (0.5-2.0) mmol/L Calcium 8.1 L D (8.4-10.2) mg/dL Total Bilirubin 0.4 (0.0-1.0) mg/dL AST 118 H (5-31) U/L ALT 48 H (0-31) U/L Alkaline Phosphatase 164 H (39-117) U/L Total Protein 6.1 L (6.5-8.0) g/dL Albumin 2.7 L (3.5-5.0) g/dL Beta-Hydroxybutyrate (0.02-0.27) mmol/L Urine Color Urine Appearance Urine pH (5.0-9.0) Ur Specific [place] (1.005-1.025) Urine Protein (Neg-Trace) mg/dL Urine Glucose (UA) (Negative) mg/dL Urine Ketones (Negative) mg/dL Urine Blood (Negative) Urine Nitrite (Negative) Ur Leukocyte Esterase (Negative) COVID-19 ([place]) (Negative) COVID-19 Clin Com Influenza Type A ([facility]) Negative (Negative) Influenza Type B ([facility]) Negative (Negative) Influenza A & B Note See Note 05/25/23 05/26/23 05/26/23 Range/Units Unknown 01:07 02:21 WBC (4.8-10.8) X10*3/uL RBC (4.20-5.50) X10*6/uL Hgb (12.0-16.0) g/dl Hct (37.0-47.0) % MCV (80.0-98.0) fL MCH (27.0-33.0) pg MCHC (31.0-35.0) g/dl RDW (11.0-16.0) % Plt Count (160-400) X10*3/uL MPV (9.4-12.3) fL Immature Gran % (Auto) (0.0-0.4) % Neut % (Auto) (45-73) % Lymph % (Auto) (20-40) % [place] % (Auto) (2-11) % Eos % (Auto) (0-4) % Baso % (Auto) (0-2) % Lymph # (Auto) (1.2-4.9) X10*3/uL [place] # (Auto) (0.1-1.2) X10*3/uL Eos # (Auto) (0.0-0.4) X10*3/uL Baso # (Auto) (0.0-0.2) X10*3/uL Abs Immat Gran (auto) (0.00-0.03) X10*3/uL Absolute Neuts (auto) (2.0-8.3) x10*3/uL Absolute Nucleated RBC (0.0-0.012) X10*3/uL Nucleated RBC % (auto) (0.0-0.2) /100WBC Smear Tech's Comments D-Dimer High Sensitivty NG/ML Sodium (135-145) mmol/L Potassium (3.3-5.1) mmol/L Chloride (96-108) mmol/L Carbon Dioxide (22-29) mmol/L Anion Gap (12-20) BUN (9-16) mg/dL Creatinine (0.5-1.4) mg/dL Estim Creat Clear Calc Estimated GFR Random Glucose (60-115) mg/dL Lactic Acid (0.5-2.0) mmol/L Lactic Acid F/U @ 2Hr 1.2 (0.5-2.0) mmol/L Calcium (8.4-10.2) mg/dL Total Bilirubin (0.0-1.0) mg/dL AST (5-31) U/L ALT (0-31) U/L Alkaline Phosphatase (39-117) U/L Total Protein (6.5-8.0) g/dL Albumin (3.5-5.0) g/dL Beta-Hydroxybutyrate (0.02-0.27) mmol/L Urine Color Yellow Urine Appearance Clear Urine pH 6.5 (5.0-9.0) Ur Specific [place] 1.025 (1.005-1.025) Urine Protein Negative (Neg-Trace) mg/dL Urine Glucose (UA) Negative (Negative) mg/dL Urine Ketones Negative (Negative) mg/dL Urine Blood Negative (Negative) Urine Nitrite Negative (Negative) Ur Leukocyte Esterase Negative (Negative) COVID-19 ([place]) Negative (Negative) COVID-19 Clin Com See Note Influenza Type A ([facility]) (Negative) Influenza Type B ([facility]) (Negative) Influenza A & B Note Independent Interpretation I performed an independent interpretation of an: CT Scan (My interpretation of CT scan: No obvious pulmonary embolism) Radiology Impression Discussion of test interpretation with radiology: I have reviewed the radiologist's reading. Radiologist Impression: FINDINGS: QUALITY OF STUDY/CONTRAST BOLUS: Suboptimal. PULMONARY ARTERIES: No central pulmonary emboli. No large segmental pulmonary emboli, although evaluation is somewhat limited due to motion as well as attenuation achieved in the pulmonary arteries which is similar to the aorta and pulmonary veins.? THORACIC AORTA: No aneurysm or dissection. LUNG: No focal consolidation or significant groundglass disease. Central airways are patent. Azygos fissure. No suspicious pulmonary nodule or mass. PLEURA: No pleural effusion or pneumothorax. MEDIASTINUM: Normal heart size. Trace amount of pericardial fluid. Coronary artery calcifications are mild. No hilar or mediastinal lymphadenopathy. No evidence of septal bowing or right heart strain. Normal appearance of the thyroid gland. CHEST WALL/AXILLA: Fairly symmetric bilateral axillary lymph nodes with preserved fatty devan, likely reactive. ABDOMEN/PELVIS: LIVER, GALLBLADDER AND BILIARY TREE: The liver is normal in size, shape, and attenuation. No focal hepatic lesion or biliary ductal dilatation is present. The gallbladder is unremarkable with no evidence of radiopaque gallstones, gallbladder wall thickening, or obvious pericholecystic inflammatory changes.? PANCREAS: Normal; no mass or surrounding fluid.? SPLEEN: Normal size.? No focal lesion.? ADRENAL GLANDS: Normal; no mass.? KIDNEYS AND URETERS: The kidneys are normal in size, shape, and attenuation. No hydronephrosis, hydroureter, or calculi. ? GASTROINTESTINAL TRACT: Chronic rectal wall thickening with associated perirectal lymphadenopathy, stable compared to 05/19/2023 and 09/02/2022. No free air or organized extraluminal collection. Trace amount of free fluid in the pelvis is unchanged compared to 05/19/2023 and 09/02/2022. The stomach and the small bowel are nondilated. Normal appendix. No significant pericolonic fat stranding. No evidence of bowel obstruction. ABDOMINAL WALL: No significant hernia is appreciated.? LYMPHOVASCULAR STRUCTURES: As above, chronic perirectal lymphadenopathy. Additional chronic periportal lymphadenopathy. No new or enlarging lymph nodes. Normal caliber abdominal aorta with scattered atherosclerotic disease.? BLADDER: No focal mass or wall thickening seen.? No bladder calculi.? PELVIC VISCERA: Unremarkable. OSSEOUS STRUCTURES: Unchanged intervertebral disc height loss with increased sclerosis at L4-L5. No acute or aggressive appearing osseous abnormalities.? CT/CT angio chest PE protocol IMPRESSION: 1.? No evidence of central pulmonary emboli. No evidence of large segmental pulmonary emboli although evaluation is somewhat limited due to motion and timing of IV contrast. 2.? Chronic rectal wall thickening with associated perirectal lymphadenopathy, stable compared to 05/19/2023 and 09/02/2022. In this patient with history of Crohn's disease, continue follow-up and close attention with GI specialist and colonoscopy is recommended in view of high risk factors for colonic and rectal malignancy. 3.? Chronic nonspecific periportal lymphadenopathy. ? VTE: negative ? External Record Review External record reviewed: Outpatient record (Note from infectious disease appointment from today's visit not available) and Prior outpatient labs Critical Care Time Critical Care Time Critical Care Time: Yes Total Critical Care Time: 60 Attestation: I have personally provided critical care time. Time includes review of lab data, radiology results, discussion with consultants, and monitoring for potential decompensation. Intervention performed as documented. Discharge Plan Discharge Clinical Impression: Fever of unknown origin Patient Disposition: Admitted As Inpatient Prescriptions: No Action pen needle, diabetic [BD Monica 2nd Gen Pen Needle] 32 gauge x 5/32 needle 1 ea miscellaneous .5 times a day 30 Days Qty: 150 4RF (DME) Omnipod 5 G6 Intro Kit (Gen 5) Cartridge See Rx Instructions .Route Qty: 1 0RF Rx Instructions: As directed (DME) Omnipod 5 G6 Pods (Gen 5) Cartridge See Rx Instructions .Route Qty: 5 0RF Rx Instructions: As directed gabapentin 600 mg tablet 600 mg PO TID 30 Days Qty: 90 8RF gabapentin 300 mg capsule 300 mg PO TID 30 Days Qty: 90 8RF cholecalciferol (vitamin D3) 25 mcg (1,000 unit) capsule 25 mcg PO DAILY Qty: 90 3RF ascorbate calcium (vitamin C) 500 mg tablet 500 mg PO DAILY Qty: 90 3RF (DME) Dexcom G7 Sensor Device See Rx Instructions .Route Qty: 3 5RF Rx Instructions: As directed change every 10 days (DME) Dexcom G7 Electronic Equipment Repairer Misc See Rx Instructions .Route Qty: 1 0RF Rx Instructions: As directed atorvastatin 40 mg tablet 40 mg PO DAILY Qty: 30 4RF fluconazole [Diflucan] 150 mg tablet 150 mg PO Q3D 0 Days Qty: 2 0RF hyoscyamine sulfate 0.375 mg tablet extended release 12 hr 1 tab PO Q12H Stelara 90 mg/mL syringe 45 mg subcut Evelio SolTri U-300 Insulin 300 unit/mL (1.5 mL) insulin pen 8 unit subcut DAILY pantoprazole 40 mg tablet,delayed release (DR/EC) 40 mg PO DAILY paroxetine HCl 25 mg tablet extended release 24 hr 25 mg PO DAILY Qty: 90 2RF azathioprine 50 mg tablet 100 mg PO DAILY levofloxacin 500 mg tablet 500 mg PO DAILY Qty: 10 0RF Linzess 145 mcg capsule 145 mcg PO DAILY rcnixpw-omue-nsvqz-oreg-capryl 100 mg-150 mg- 50 mg-150 mg capsule 1 cap PO DAILY norethindrone-e.estradiol-iron [Aurovela Fe 1.5/30 (28)] 1.5 mg-30 mcg (21)/75 mg (7) tablet 1 tab PO DAILY ferrous gluconate 324 mg (38 mg iron) tablet 324 mg PO DAILY
[2023-05-25 22:12] LABS: SLIDE REVIEW VERIFIED
[2023-05-25] MEDS: SODIUM CHLORIDE 1932.3 ML IV (22:12)
[2023-05-25 22:28] LABS: Beta-Hydroxybutyrate 0.09 mmol/L (0.02-0.27)
[2023-05-25 22:39] LABS: D Dimer High Sensitivity 5734 NG/ML
[2023-05-25] MEDS: Acetaminophen 325 MG TABLET 975 MG PO (22:47)
[2023-05-25 23:23] LABS: Reflex Lactate? Lactic Acid Added
[2023-05-25] MEDS: iohexoL 350 MG/ML 100 ML INFUS..BTL 85 ML IV (23:53)
[2023-05-26] VITALS (9 sets, daily range): BP systolic 111–131; BP diastolic 68–83; PULSE 88–114; RESP 13–20; TEMP 36.3–37.9; O2SAT 97–100
[2023-05-26 01:26] LABS: ~Lactic Acid-LAB USE ONLY 1.2 mmol/L (0.5-2.0)
--- NOTE | 2023-05-26 02:15 | MHC.EDTECH ---
patient assisited to bathroom urine collected and sent to lab VSS
[2023-05-26 02:33] LABS: Appearance Urine Clear; Color Urine Yellow; Glucose Urine UA Negative (Negative); Leukocyte Esterase Urine Negative (Negative); Nitrite Urine Negative (Negative); PH 6.5 (5.0-9.0); Specific Gravity - Urine 1.025 (1.005-1.025); Urine Blood Negative (Negative); Urine Ketones Negative (Negative); Urine Protein Negative (Neg-Trace)
--- NOTE | 2023-05-26 02:59 | P.HPHOSP_ITS ---
History of Present Illness Date of Service: 05/26/23 Chief Complaint: Fevers This is a 42-year-old female with pertinent history of Crohn's disease, type 1 insulin-dependent diabetes mellitus, mood disorder, gastroesophageal reflux disease, peripheral neuropathy, Raynaud's disease who presents to the emergency department for evaluation of fevers. Patient states she has had fevers every day about 2 to 3 times a day up to 101/102 degree F for the last 2 weeks. It started on 05/11 and has persisted over the last 2 weeks. No diurnal variation. She also has had night sweats for the last few weeks. States she had a mosquito bite 1 week before the onset of fevers. No weight loss or personal history of cancer. Her last travel was in November when she visited [facility] and [place]. No recent hikes or tick bites. No sick contacts or family with similar symptoms. Patient denies excessive abdominal pain or diarrhea and hence she does not think that it is an exacerbation of Crohn's disease. She saw her primary care doctor on 05/12 and completed 2 weeks of levofloxacin. Clindamycin was added midway but patient was allergic to it and was discontinued. She was also initiated on Diflucan for oral candidiasis. Patient states her symptoms have persisted despite p.o. antibiotics. She denies chest discomfort, cough, shortness of breath, palpitations, changes in urinary habits In the emergency department, patient was found to be febrile and tachycardic. LFTs found to be elevated Review of Systems Constitutional: Constitutional: Reports body ache(s), Reports chills, Reports fatigue, Reports fever(s) and Reports malaise Cardiovascular: Cardiovascular: Reports no additional cardiovascular complaints Respiratory: Respiratory: Reports no additional respiratory complaints Gastrointestinal: Gastrointestinal: Reports bloating Genitourinary: Genitourinary: Reports no additional female genitourinary complaints Endocrine: Endocrine: Reports fatigue [facility] 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), 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 Housing: House Alcohol intake: never Patient Tobacco Use Status: Never used Tobacco e-Cigarette/Vaping Use: Never Used Advance Directives: No Advance Directives Information Provided: Yes service: No Current occupational status: employed Cognitive needs: No Hearing needs: No Vision needs: Yes Meds Allergies Allergy/AdvReac Type Severity Reaction Status Date / Time cephalexin Allergy Unknown RASH Verified 05/25/23 15:36 Penicillins Allergy Unknown RASH Verified 05/25/23 15:36 Sulfa (Sulfonamide Allergy Unknown RASH Verified 05/25/23 15:36 Antibiotics) Home Medications Medication Instructions Recorded Confirmed Last Taken Type linaclotide 145 mcg capsule 145 mcg PO DAILY 08/21/20 05/19/23 Unknown History hyoscyamine sulfate 0.375 mg 1 tab PO Q12H 10/29/20 05/19/23 Unknown History tablet,extended release,12 hr ustekinumab 90 mg/mL subcutaneous 45 mg subcut 12/10/21 05/19/23 Unknown History syringe (Stelara) tumeric 100 mg-radha 150 mg-olive 1 cap PO DAILY 07/31/22 05/19/23 Unknown History 50 mg-oreg 150 mg-caprylate capsule norethindrone 1.5 mg-ethinyl 1 tab PO DAILY 08/19/22 05/19/23 Unknown History estradiol 30 mcg(21)/iron 75 mg(7) tablet (Aurovela Fe 1.5/30 (28)) azathioprine 50 mg tablet 100 mg PO DAILY 02/19/23 05/19/23 Unknown History pantoprazole 40 mg tablet,delayed 40 mg PO DAILY 02/19/23 05/19/23 Unknown History release insulin glargine U-300 conc 300 8 unit subcut DAILY 04/16/23 05/19/23 Unknown History unit/mL (1.5 mL) subcutaneous pen (Toujeo SoloStar U-300 Insulin) ferrous gluconate 324 mg (38 mg 324 mg PO DAILY 05/25/23 Unknown History iron) tablet Physical Exam Vital Signs and Narrative: Vital Signs: Last Vital Signs Temp 97.5 F 05/26/23 00:56 Pulse 114 H 05/26/23 00:56 Resp 13 05/26/23 00:56 BP 125/68 05/26/23 00:56 Pulse Ox 97 05/26/23 00:56 O2 Del Method Room Air 05/26/23 00:56 BMI result Body Mass Index 26.0 Middle-aged female lying in bed in no distress Neck supple, no JVD Regular rate and rhythm, S1-S2 heard Regular breath sounds bilaterally, no wheezing or crackles appreciated Abdomen soft nontender, no guarding, no rigidity Patient is awake, alert and oriented to self, place, time and person ; no focal motor deficit Psych: Normal mood No pedal edema Results Labs 05/25/23 Unknown 05/25/23 Unknown Labs: Laboratory Results - last 24 hr 05/25/23 05/25/23 05/25/23 22:06 22:06 Unknown MCV 94.6 MCH 32.2 MCHC 34.1 RDW 14.2 Plt Count 361 D MPV 10.8 Immature Gran % (Auto) 2.2 H Neut % (Auto) 39.8 L Lymph % (Auto) 50.6 H [place] % (Auto) 6.6 Eos % (Auto) 0.3 Baso % (Auto) 0.5 Lymph # (Auto) 3.7 [place] # (Auto) 0.5 Eos # (Auto) 0.0 Baso # (Auto) 0.0 Abs Immat Gran (auto) 0.16 H Absolute Neuts (auto) 2.9 Absolute Nucleated RBC 0.000 Nucleated RBC % (auto) 0.0 Smear Tech's Comments VERIFIED D-Dimer High Sensitivty 5734 Anion Gap Estim Creat Clear Calc Estimated GFR Random Glucose Lactic Acid Lactic Acid F/U @ 2Hr Calcium Total Bilirubin AST ALT Alkaline Phosphatase Total Protein Albumin Beta-Hydroxybutyrate 0.09 Urine Color Urine Appearance Urine pH Ur Specific [place] Urine Protein Urine Glucose (UA) Urine Ketones Urine Blood Urine Nitrite Ur Leukocyte Esterase COVID-19 ([facility]) COVID-19 Clin Com Influenza Type A (BRENDA) Influenza Type B (BRENDA) Influenza A & B Note 05/25/23 05/25/23 05/25/23 Unknown Unknown Unknown MCV MCH MCHC RDW Plt Count MPV Immature Gran % (Auto) Neut % (Auto) Lymph % (Auto) [place] % (Auto) Eos % (Auto) Baso % (Auto) Lymph # (Auto) [place] # (Auto) Eos # (Auto) Baso # (Auto) Abs Immat Gran (auto) Absolute Neuts (auto) Absolute Nucleated RBC Nucleated RBC % (auto) Smear Tech's Comments D-Dimer High Sensitivty Anion Gap 16 Estim Creat Clear Calc 95.4 Estimated GFR > 60 Random Glucose 141 H Lactic Acid 2.4 H* Lactic Acid F/U @ 2Hr Calcium 8.1 L D Total Bilirubin 0.4 AST 118 H ALT 48 H Alkaline Phosphatase 164 H Total Protein 6.1 L Albumin 2.7 L Beta-Hydroxybutyrate Urine Color Urine Appearance Urine pH Ur Specific [place] Urine Protein Urine Glucose (UA) Urine Ketones Urine Blood Urine Nitrite Ur Leukocyte Esterase COVID-19 ([facility]) COVID-19 Clin Com Influenza Type A (BRENDA) Negative Influenza Type B ([facility]ENDA) Negative Influenza A & B Note See Note 05/25/23 05/26/23 05/26/23 Unknown 01:07 02:21 MCV MCH MCHC RDW Plt Count MPV Immature Gran % (Auto) Neut % (Auto) Lymph % (Auto) [place] % (Auto) Eos % (Auto) Baso % (Auto) Lymph # (Auto) [place] # (Auto) Eos # (Auto) Baso # (Auto) Abs Immat Gran (auto) Absolute Neuts (auto) Absolute Nucleated RBC Nucleated RBC % (auto) Smear Tech's Comments D-Dimer High Sensitivty Anion Gap Estim Creat Clear Calc Estimated GFR Random Glucose Lactic Acid Lactic Acid F/U @ 2Hr 1.2 Calcium Total Bilirubin AST ALT Alkaline Phosphatase Total Protein Albumin Beta-Hydroxybutyrate Urine Color Yellow Urine Appearance Clear Urine pH 6.5 Ur Specific [place] 1.025 Urine Protein Negative Urine Glucose (UA) Negative Urine Ketones Negative Urine Blood Negative Urine Nitrite Negative Ur Leukocyte Esterase Negative COVID-19 ([facility]) Negative COVID-19 Clin Com See Note Influenza Type A (BRENDA) Influenza Type B ([facility]ENDA) Influenza A & B Note Imaging Radiologist's Impressions: Impressions Chest X-Ray 05/25/23 21:23 IMPRESSION: Unremarkable examination. Abdomen/Pelvis CT 05/25/23 23:50 IMPRESSION: 1. No evidence of central pulmonary emboli. No evidence of large segmental pulmonary emboli although evaluation is somewhat limited due to motion and timing of IV contrast. 2. Chronic rectal wall thickening with associated perirectal lymphadenopathy, stable compared to 05/19/2023 and 09/02/2022. In this patient with history of Crohn's disease, continue follow-up and close attention with GI specialist and colonoscopy is recommended in view of high risk factors for colonic and rectal malignancy. 3. Chronic nonspecific periportal lymphadenopathy. VTE: negative Chest CTA 05/25/23 23:50 IMPRESSION: 1. No evidence of central pulmonary emboli. No evidence of large segmental pulmonary emboli although evaluation is somewhat limited due to motion and timing of IV contrast. 2. Chronic rectal wall thickening with associated perirectal lymphadenopathy, stable compared to 05/19/2023 and 09/02/2022. In this patient with history of Crohn's disease, continue follow-up and close attention with GI specialist and colonoscopy is recommended in view of high risk factors for colonic and rectal malignancy. 3. Chronic nonspecific periportal lymphadenopathy. VTE: negative Assessment and Plan (1) Fever: Status: Acute Plan This is a 42-year-old female with pertinent history of Crohn's disease, type 1 insulin-dependent diabetes mellitus, mood disorder, gastroesophageal reflux disease, peripheral neuropathy, Raynaud's disease who presents to the emergency department for evaluation of fevers. #. Fever with sirs positive. Unclear etiology. Blood culture obtained in the ER. Patient saw Infectious Disease as an outpatient, will re-consult. UA negative. Tick-borne disease panel, hepatitis, HIV, ESR/CRP, smear for parasite, CELINA pending. CT chest/abdomen/pelvis reviewed. Does have chronic re ctal wall thickening which was reviewed with GI as an outpatient, no concern for exacerbation of Crohn's. #. Crohn's disease. Continue azathioprine and ustekinumab #. Mood disorder. Continue home mood stabilizers #. Type 1 insulin-dependent diabetes. Initiate basal plus regimen #. Peripheral neuropathy. On gabapentin #. Gastroesophageal reflux disease: On PPI Med rec pending DVT prophylaxis: Lovenox Full code Regular diet Time Spent With Patient Time: Total time managing care of this patient today ____ minutes. Quality Stroke Does the patient have a stroke diagnosis?: No VTE Prior VTE?: No VTE Risk Level:: Medical - moderate - high VTE Device Contraindication: Treatment Not Indicated VTE Drug Contraindication: N/A - Med Ordered
[2023-05-26 03:36] LABS: Basophils Absolute Auto 0.1 X10*3/uL (0.0-0.2); Basophils Percent Auto 0.7 % (0-2); Eosinophils Percent Auto 0.3 % (0-4); Hematocrit 29.1 % (37.0-47.0); Hemoglobin 9.9 g/dl (12.0-16.0); Imm Gran Abs Auto 0.16 X10*3/uL (0.00-0.03); Imm Gran Pct Auto 2.2 % (0.0-0.4); Lymphocytes Percent Auto 55.6 % (20-40); MANUAL DIFF FLAG SCAN; Mean Corpuscular Hemoglobin 31.5 pg (27.0-33.0); Mean Corpuscular Volume 92.7 fL (80.0-98.0); Mean Platelet Volume 10.1 fL (9.4-12.3); Monocytes Absolute Auto 0.6 X10*3/uL (0.1-1.2); Monocytes Percent Auto 8.2 % (2-11); Neutrophils Absolute Auto 2.4 x10*3/uL (2.0-8.3); Platelet Count 307 X10*3/uL (160-400); Red Blood Count 3.14 X10*6/uL (4.20-5.50); Red Cell Distribution Width 14.1 % (11.0-16.0); SCAN SMEAR FLAG 1; White Blood Count 7.2 X10*3/uL (4.8-10.8)
[2023-05-26 03:50] LABS: Anion Gap 14 (12-20); Blood Urea Nitrogen 8 mg/dL (9-16); C Reactive Protein 3.47 mg/dL (< or = 0.50); Calcium 7.7 mg/dL (8.4-10.2); Carbon Dioxide 22 mmol/L (22-29); Chloride 107 mmol/L (96-108); Creatinine Clr Calc Pharmacy 103.1; Estimated Glomerular Filt Rate > 60; Glucose Random 107 mg/dL (60-115); Potassium 3.7 mmol/L (3.3-5.1); Sodium 139 mmol/L (135-145)
[2023-05-26 04:09] LABS: Erythrocyte Sedimentation Rate 25 MM/HR (0-20)
[2023-05-26 04:15] LABS: HIV AB/AG Nonreactive (Nonreactive); HIV Num 1 0.14 S/CO (0.00-0.99)
[2023-05-26 04:41] LABS: HBS Num1 0.17 mIU/mL (0-7.99); HBc Num1 0.24 S/CO (0.00-0.79); HBsAGNum1 0.42 S/CO (0.00-0.99); Hepatitis A Antibody IgM 0.26 Index (0-0.79); Hepatitis B Core Antibody Nonreactive (Nonreactive); Hepatitis B Surface Antigen Negative (Negative); ~HepC Num1 0.13 S/CO (0.00-0.79); ~Hepatitis A Antibody IgM Nonreactive (Nonreactive); ~Hepatitis B Surface Antibody NONREACTIVE (Nonreactive); ~Hepatitis C Antibody Nonreactive (Nonreactive)
[2023-05-26 07:29] LABS: Glucose, Whole Blood 91 mg/dL (60-115)
--- NOTE | 2023-05-26 08:29 | PHA.MEDREC ---
Pharmacy Consult ? Medication Reconciliation Pharmacy has completed the medication reconciliation. Spoke to patient to confirm meds. Reports using humalog sliding scale, although no claim history. Patient unknown of last Stelara injection date, or when next is due.
[2023-05-26] MEDS: Acetaminophen 325 MG TABLET 650 MG PO ×2 (08:33→17:38)
[2023-05-26] MEDS: Enoxaparin Sodium 40 MG/0.4 ML SYRINGE SUBCUT (08:34)
[2023-05-26] MEDS: Insulin Glargine,Hum.rec.anlog 100 UNIT/ML 10 ML VIAL 8 UNIT SUBCUT (08:34)
[2023-05-26] MEDS: 0.9 % Sodium Chloride Flush 3 ML SYRINGE IVFLUSH ×2 (08:35→21:20)
--- NOTE | 2023-05-26 08:40 | PC.NURSE ---
patient laying in stretcher, respirations equal and unlabored. patient states she has a headache, prn Tylenol utilized for pain control. patient VSS
[2023-05-26 12:27] LABS: Glucose, Whole Blood 83 mg/dL (60-115)
[2023-05-26 15:20] LABS: Lactate Dehydrogenase 831 U/L (122-220)
--- NOTE | 2023-05-26 15:26 | PM.EVENT ---
Event Note Date of Service: 05/26/23 Event Note: Pt seen and examined. Admitted early this morning for fever unknown origin. Pt has been having fevers up to 103.1 up to 3 times daily since May 11. Initially with myalgias and dysuuria. Treated with levaquin x 10 days then developed thrush and subsequently esophageal candidiasis and continues on oral fluconazole. Has also had myalgias and fatigue. Had negative tick panel. LFTs elevated, hepatitis panel negative. In ED, D-dimer elevated greater than 5000. CXR, CTA chest negative for acute cardiopulmonary abnormality including pulmonary embolism. CT abdomen/pelvis showing chronic rectal wall thickening with associated perirectal lymphadenopathy stable compared to prior imaging and chronic nonspecific periportal lymphadenopathy.. In the ED, leukopenia has resolved. She does have a normocytic anemia with H/H 9.9/29.1%, LDH 831. CRP 3.47, ESR 25. AST 118, ALT 48, alkaline phosphatase 164. Urinalysis unremarkable. Autoimmune screen, double strand DNA antibody, anti ds DNA antibody pending. CELINA undetectable previously. Repeat tick panel pending. Case discussed with Infectious Disease recommending further testing of CMV, protein electrophoresis, rheumatoid factor, T spot, toxoplasma antibody IgG and IgM, TSH reflex free T4. Will also check echocardiogram given fever of unknown origin and tachycardia to 140 on arrival. Blood cultures remain pending. Per ID, will also cover empirically for tick borne illness given symptomology, recent leukopenia. Will initiate doxycycline, azithromycin, and mepron. Will repeat CXR given prodcutive cough and rhonchi on exam. keyana prn. Time Spent With Patient Time: Total time managing care of this patient today ____ minutes.
[2023-05-26] MEDS: Azithromycin 500 MG TABLET PO (15:38)
[2023-05-26] MEDS: Doxycycline Monohydrate 100 MG CAPSULE PO (15:38)
[2023-05-26 15:54] LABS: Rheumatoid Factor < 13.0 IU/mL (<15.0)
--- NOTE | 2023-05-26 16:00 | W.PM.IDCN ---
History of Present Illness Data of Consult Service Date: 05/26/23 Requesting physician: Neena Olivarez Primary Care Provider: Emi Briceño MD HPI Reason for consult: true fever of unknown origin She presents with fever daily to 102-103 for last two weeks. She took Levaquin for possible UTI last week seven days. She has no travel or known ill exposures. She has Crohns and active perirectal disease. 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 Normal pelvic exam Other specified mononeuropathies Postlaminectomy syndrome of lumbar region Spondylosis of lumbar region without myelopathy or radiculopathy Vitamin D deficiency Family History Family History Mother Tongue cancer Father Type 2 diabetes mellitus Retinopathy Neuropathy Angiopathy Blindness Renal failure Hypertension Cataract Skin cancer Paternal Uncle Substance use disorder Family history: reviewed and not pertinent Surgical History Surgical History H/O tooth extraction History of hemilaminectomy History of root canal procedure Hx of colonoscopy Social History Social History Household Members: Spouse and Children Household Members Other:: , 2 sons (11. 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 If so, by whom?: No Do you feel safe in your current relationship?: Yes Is there a partner from a previous relationship who is making you feel unsafe now?: No Are you made to feel afraid or neglected: No Advance Directives: No Advance Directives Information Provided: Yes Do you have thoughts of harming others: None Do you have a plan to hurt others: No Plan Recently lost weight without trying: No Nutrition Risks: No Nutritional Risk Patient : No : No Poor oral hygiene: No service: No Current occupational status: employed Cognitive needs: No Hearing needs: No Vision needs: Yes Meds Allergies Allergy/AdvReac Type Severity Reaction Status Date / Time cephalexin Allergy Unknown RASH Verified 05/25/23 15:36 Penicillins Allergy Unknown RASH Verified 05/25/23 15:36 Sulfa (Sulfonamide Allergy Unknown RASH Verified 05/25/23 15:36 Antibiotics) Active Medications: Current Medications Acetaminophen (Acetaminophen 325 Mg Tablet) 650 mg PO Q6H PRN PRN Reason: Pain, Mild (Pain Scale 1-3) Last Admin: 05/26/23 08:33 Dose: 650 mg Ascorbic Acid (Ascorbic Acid 500 Mg Tablet) 500 mg PO DAILY [facility] Atovaquone (Atovaquone 750 Mg/5 Ml Oral.Susp) 1,500 mg PO DAILY [facility] Azathioprine (Azathioprine 50 Mg Tablet) 100 mg PO DAILY [facility] Azithromycin (Azithromycin 500 Mg Tablet) 500 mg PO Q24H [facility] Last Admin: 05/26/23 15:38 Dose: 500 mg Dextrose (Dextrose 50 % 25 Gm/50 Ml Syringe) 25 gm IVPUSH Q15M PRN; Protocol PRN Reason: per Hypoglycemia Standing Ord. Doxycycline Monohydrate (Doxycycline Monohydrate 100 Mg Capsule) 100 mg PO Q12H [facility] Last Admin: 05/26/23 15:38 Dose: 100 mg Enoxaparin Sodium (Enoxaparin Sodium 40 Mg/0.4 Ml Syringe) 40 mg SUBCUT Q24H [facility] Last Admin: 05/26/23 08:34 Dose: 40 mg Ferrous Sulfate (Ferrous Sulfate 324 Mg Tablet.Dr) 324 mg PO DAILY [facility] Fluconazole (Fluconazole 100 Mg Tablet) 200 mg PO DAILY [facility] Gabapentin (Gabapentin 600 Mg Tablet) 600 mg PO TID [facility] Glucose (Glucose Gel 15 Gm Gel..Gram.) 15 gm PO Q15M PRN; Protocol PRN Reason: per Hypoglycemia Standing Ord. Guaifenesin (Guaifenesin 200 Mg/10 Ml 10 Ml Liquid) 10 ml PO Q4H PRN PRN Reason: cough Insulin Glargine (Insulin Glargine,Hum.Rec.Anlog 100 Unit/Ml 10 Ml Vial) 8 unit SUBCUT DAILY [facility] Last Admin: 05/26/23 08:34 Dose: 8 unit Insulin Human Lispro (Insulin Lispro 100 Unit/Ml 3 Ml Vial) 0 unit SUBCUT QIDACHS [facility]; Protocol Last Admin: 05/26/23 12:34 Dose: Not Given Loratadine (Loratadine 10 Mg Tablet) 10 mg PO DAILY [facility] Melatonin (Melatonin 3 Mg Tablet) 6 mg PO BEDTIME PRN PRN Reason: Insomnia Non-Formulary Medication (Hyoscyamine Sulfate) 0.375 mg PO DAILY [facility] Non-Formulary Medication (Linaclotide [Linzess]) 290 mcg PO DAILY [facility] Non-Formulary Medication (Norethindrone-E.Estradiol-Iron [Blisovi Fe 11/14 ()]) 1 tab PO DAILY [facility] Omeprazole (Omeprazole 20 Mg Capsule.) 20 mg PO BEDTIME PRN PRN Reason: Acid Reflux Omeprazole (Omeprazole 20 Mg Capsule.) 20 mg PO DAILY@06 [facility] Ondansetron HCl (Ondansetron Hcl 4 Mg/2 Ml Vial) 4 mg IVPUSH Q8H PRN PRN Reason: Nausea and Vomiting Paroxetine HCl (Paroxetine Hcl 20 Mg Tablet) 20 mg PO DAILY [facility] Pharmacy Consult (Consult Rx Perform Med Rec) 1 each MISCELLANE ONCE PRN PRN Reason: Consult order Sodium Chloride (0.9 % Sodium Chloride Flush 3 Ml Syringe) 3 ml IVFLUSH QSHIFT [facility] Last Admin: 05/26/23 15:43 Dose: Not Given Vitamin D (Cholecalciferol (Vitamin D3) 25 Mcg Tablet) 25 mcg PO DAILY [facility] Home Medications Medication Instructions Recorded Confirmed Last Taken Type ustekinumab 90 mg/mL subcutaneous 90 mg subcut Q8W 12/10/21 05/26/23 Unknown History syringe (Stelara) tumeric 100 mg-radha 150 mg-olive 1 cap PO DAILY 07/31/22 05/26/23 2 Weeks Ago History 50 mg-oreg 150 mg-caprylate capsule ~05/12/23 azathioprine 50 mg tablet 100 mg PO DAILY 02/19/23 05/26/23 05/25/23 History pantoprazole 40 mg tablet,delayed 40 mg PO DAILY@0630 02/19/23 05/26/23 05/25/23 History release insulin glargine U-300 conc 300 6 unit subcut DAILY 04/16/23 05/26/23 05/25/23 History unit/mL (1.5 mL) subcutaneous pen (Toueroso SoloStar U-300 Insulin) [id number] 250 1 tab PO DAILY PRN Migraine 05/26/23 05/26/23 05/25/23 History mg-250 mg-65 mg tablet (Excedrin Headache Migraine) ferrous sulfate 324 mg (65 mg 324 mg PO DAILY 05/26/23 05/26/23 05/25/23 History iron) tablet,delayed release fluconazole 200 mg tablet 200 mg PO DAILY 05/26/23 05/26/23 05/25/23 History hyoscyamine sulfate 0.375 mg 0.375 mg PO DAILY 05/26/23 05/26/23 05/25/23 History tablet,extended release,12 hr insulin lispro 100 unit/mL 1 sliding scale dose subcut TIDAC 05/26/23 05/26/23 Unknown History subcutaneous solution linaclotide 290 mcg capsule 290 mcg PO DAILY 05/26/23 05/26/23 05/25/23 History (Linzess) loratadine 10 mg tablet 10 mg PO DAILY 05/26/23 05/26/23 05/25/23 History norethindrone 1 mg-ethinyl 1 tab PO DAILY 05/26/23 05/26/23 05/25/23 History estradiol 20 mcg (21)-iron 75 mg (7) tablet (Blisovi Fe 11/14 (28)) pantoprazole 40 mg tablet,delayed 40 mg PO BEDTIME PRN Acid Reflux 05/26/23 05/26/23 Unknown History release Physical Exam Vital Signs: Vital Signs: Last Vital Signs Temp 97.4 F 05/26/23 15:55 Pulse 98 05/26/23 15:55 Resp 18 05/26/23 15:55 BP 131/78 05/26/23 15:55 Pulse Ox 99 05/26/23 15:55 O2 Del Method Room Air 05/26/23 15:55 BMI result Body Mass Index 26.0 Const: General: cooperative HEENT: Head: Yes normal to inspection Face and sinus: Yes normal facial exam Mouth: Normal oral and palatal mucosa present Teeth and gingiva: dentition normal Eyes: General: appearance normal, both eyes and all related structures Pupils: Equal, round and reactive pupils present Resp: Effort & Inspection: normal respiratory effort Cardio: Rate: regular rate Rhythm: regular rhythm GI: Palpation (GI): Soft to palpation and nontender : General: Yes no CVA tenderness Back/Spine/Pelvis: Back: no CVA tenderness Skin: General skin exam: no rashes or lesions noted Neuro: General: moves all extremities Cranial nerves: Yes Equal, round and reactive pupils present Extrem: General: Yes normal to inspection Psych: Appearance: grossly normal Results Labs 05/26/23 03:27 05/26/23 03:27 Labs: Short CBC 05/25/23 05/26/23 Range/Units Unknown 03:27 WBC 7.3 7.2 (4.8-10.8) X10*3/uL Hgb 10.7 L D 9.9 L (12.0-16.0) g/dl Hct 31.4 L D 29.1 L (37.0-47.0) % Plt Count 361 D 307 (160-400) X10*3/uL BMP 05/25/23 05/26/23 Unknown 03:27 Sodium 134 L 139 Potassium 3.7 3.7 Chloride 100 107 Carbon Dioxide 22 22 BUN 10 8 L Creatinine 0.67 0.62 Calcium 8.1 L D 7.7 L Liver Function 05/25/23 Range/Units Unknown Total Bilirubin 0.4 (0.0-1.0) mg/dL AST 118 H (5-31) U/L ALT 48 H (0-31) U/L Alkaline Phosphatase 164 H (39-117) U/L Albumin 2.7 L (3.5-5.0) g/dL Urine 05/26/23 Range/Units 02:21 Urine Color Yellow Urine Appearance Clear Urine pH 6.5 (5.0-9.0) Ur Specific [place] 1.025 (1.005-1.025) Urine Protein Negative (Neg-Trace) mg/dL Urine Glucose (UA) Negative (Negative) mg/dL Assessment and Plan (1) Fever of unknown origin: Status: Acute She has fever as well as elevated LFT and leukopenia now decreased. She has possible Crohns perirectal exacerbation ?abscess and also possible infection such as CMV perirectal area due to immunosuppression. Also she may have endocrine disease such as central fever ?hypothalamus concern. There may be autoimmune disease such as adrenal insufficiency. She may still have tick borne infection although tests negative. (2) Elevated LFTs: Status: Acute (3) Abdominal pain: Status: Acute Plan Would give po Doxycycline 100 mg bid for 10 days as well as 10 days po 500 mg Azithromycin and po Mepron 1500 mg daily. She needs Dr Correa GI evaluation perirectal area and biopsy inflammed area look for CMV/fungus. Check echo evaluate endocarditis/atrial myxoma. Check SIEP even though bone marrow biopsy,Tspot ,rheumatoid factor,toxoplasmosis and TSH. If all negative check MRI brain with contrast evaluate sella tumor/other. Time Spent With Patient Time: Total time managing care of this patient today ____ minutes.
[2023-05-26 16:15] LABS: TSH reflex Free T4 1.12 uIU/mL (0.32-4.0)
[2023-05-26 16:17] LABS: Glucose, Whole Blood 125 mg/dL (60-115)
[2023-05-26] MEDS: guaiFENesin 200 MG/10 ML 10 ML LIQUID PO (17:36)
[2023-05-26] MEDS: ondansetron HCL 4 MG/2 ML VIAL IVPUSH (17:37)
[2023-05-26 21:04] LABS: Glucose, Whole Blood 106 mg/dL (60-115)
[2023-05-26] MEDS: Gabapentin 600 MG TABLET PO (21:19)
[2023-05-27 02:54] VITALS: BP 121/68; PULSE 111; RESP 20; TEMP 37.4; O2SAT 95
[2023-05-27] MEDS: Acetaminophen 325 MG TABLET 650 MG PO ×2 (05:21→18:15)
[2023-05-27] MEDS: ondansetron HCL 4 MG/2 ML VIAL IVPUSH (05:21)
[2023-05-27] MEDS: Doxycycline Monohydrate 100 MG CAPSULE PO ×2 (05:21→18:13)
[2023-05-27 07:09] LABS: Glucose, Whole Blood 147 mg/dL (60-115)
[2023-05-27 07:11] VITALS: BP 107/68; PULSE 109; RESP 20; TEMP 37; O2SAT 96
[2023-05-27 07:22] LABS: Alanine Aminotransferase 32 U/L (0-31); Albumin Level 2.4 g/dL (3.5-5.0); Alkaline Phosphatase 166 U/L (39-117); Anion Gap 13 (12-20); Aspartate Amino Transferase 78 U/L (5-31); Bilirubin Direct 0.2 mg/dL (0.0-0.5); Bilirubin Total 0.4 mg/dL (0.0-1.0); Blood Urea Nitrogen 8 mg/dL (9-16); Calcium 8.1 mg/dL (8.4-10.2); Carbon Dioxide 24 mmol/L (22-29); Chloride 105 mmol/L (96-108); Creatinine Clr Calc Pharmacy 93.9; Estimated Glomerular Filt Rate > 60; Glucose Random 154 mg/dL (60-115); Potassium 3.8 mmol/L (3.3-5.1); Sodium 138 mmol/L (135-145); Total Protein 5.5 g/dL (6.5-8.0)
[2023-05-27 07:42] LABS: Cortisol Random 14.2 ug/dL
--- NOTE | 2023-05-27 08:56 | PM.EVENT ---
Event Note Date of Service: 05/27/23 Event Note: GI pt seen and examined consult dictated Crohns is stable on present regimen, continue present meds. Linzess and miralax prn constipation recent rectal bx's 02/15 showed no evidence of CMV changes. Time Spent With Patient Time: Total time managing care of this patient today ____ minutes.
--- NOTE | 2023-05-27 08:57 | MHC.CM.PN ---
Pt admitted with dx fever. Pt lives at home with spouse, is independent/self-care, no services/DME. D/C plan to return home self-care. Pts spouse to transport home. HCP on file and verified. PCP: Emi Moraes vax: x 2
[2023-05-27 09:22] LABS: Basophils Percent Auto 0.7 % (0-2); Eosinophils Percent Auto 0.5 % (0-4); Hematocrit 29.1 % (37.0-47.0); Hemoglobin 9.8 g/dl (12.0-16.0); Imm Gran Abs Auto 0.11 X10*3/uL (0.00-0.03); Imm Gran Pct Auto 1.9 % (0.0-0.4); Lymphocytes Percent Auto 52.7 % (20-40); MANUAL DIFF FLAG SCAN; Mean Corpuscular HGB Conc 33.7 g/dl (31.0-35.0); Mean Corpuscular Hemoglobin 31.8 pg (27.0-33.0); Mean Corpuscular Volume 94.5 fL (80.0-98.0); Mean Platelet Volume 10.7 fL (9.4-12.3); Monocytes Absolute Auto 0.5 X10*3/uL (0.1-1.2); Monocytes Percent Auto 8.8 % (2-11); Neutrophils Percent Auto 35.4 % (45-73); Platelet Count 333 X10*3/uL (160-400); Red Blood Count 3.08 X10*6/uL (4.20-5.50); Red Cell Distribution Width 14.6 % (11.0-16.0); SCAN SMEAR FLAG 1; White Blood Count 5.7 X10*3/uL (4.8-10.8)
[2023-05-27] MEDS: Atovaquone 750 MG/5 ML ORAL.SUSP 1500 MG PO (09:36)
[2023-05-27] MEDS: Insulin Glargine,Hum.rec.anlog 100 UNIT/ML 10 ML VIAL 8 UNIT SUBCUT (09:36)
[2023-05-27] MEDS: Gabapentin 600 MG TABLET PO ×3 (09:37→21:12)
[2023-05-27] MEDS: Enoxaparin Sodium 40 MG/0.4 ML SYRINGE SUBCUT (09:37)
[2023-05-27] MEDS: PARoxetine HCL 20 MG TABLET PO (09:37)
[2023-05-27] MEDS: Ferrous Sulfate 324 MG TABLET.DR PO (09:37)
[2023-05-27] MEDS: Ascorbic Acid 500 MG TABLET PO (09:37)
[2023-05-27] MEDS: Fluconazole 100 MG TABLET 200 MG PO (09:37)
[2023-05-27] MEDS: Loratadine 10 MG TABLET PO (09:37)
[2023-05-27] MEDS: Cholecalciferol (Vitamin D3) 25 MCG TABLET PO (09:37)
[2023-05-27] MEDS: 0.9 % Sodium Chloride Flush 3 ML SYRINGE IVFLUSH ×3 (09:38→21:23)
[2023-05-27] MEDS: Butalb/Acetamin/Caff 50/325/40 TABLET 1 TAB PO (09:48)
[2023-05-27 09:54] LABS: SLIDE REVIEW VERIFIED
[2023-05-27 10:09] LABS: Toxoplasma IgG Antibody <7.20 IU/mL; Toxoplasma IgM Antibody <8.00 AU/mL
[2023-05-27 10:59] LABS: Glucose, Whole Blood 130 mg/dL (60-115)
[2023-05-27 13:32] LABS: CMV DNA PCR Qn Source BLOOD; CMV DNA Qn PCR 4.59 Log IU/mL (NOT DETECTED); CMV DNA Qn Real Time PCR 38968 IU/mL (NOT DETECTED)
--- NOTE | 2023-05-27 14:55 | HO.PM.IMPN ---
Subjective Subjective Date of Service: 05/27/23 Interval History: Seen in follow up for fever of unknown origin Interval history: Febrile to 100.5 last night. LFTs trending down. Reports feeling clammy, bloated, constipated. Now positive for CMV Review of Systems Review of Systems: Yes all other systems are reviewed and are negative Physical Exam Vital Signs: Vital Signs: Last Vital Signs Temp 98.6 F 05/27/23 07:11 Pulse 109 H 05/27/23 07:11 Resp 20 05/27/23 07:11 BP 107/68 05/27/23 07:11 Pulse Ox 96 05/27/23 07:11 O2 Del Method Room Air 05/27/23 07:11 BMI result Body Mass Index 26.0 Constitutional - Awake and Alert, No apparent distress Eyes - PERRLA, EOMI Cardiovascular - S1S2, RRR, No edema Respiratory - Normal lung expansion, Normal respiratory effort, No respiratory distress, CTA bilaterally Gastrointestinal - NT / ND; +BS; No rebound or guarding Extremities - no calf tenderness bilaterally, no swelling Skin - Warm/Dry Neurological - Alert & oriented x3 Psychological - Appropriate affect Objective Data Active Medications Acetaminophen (Acetaminophen 325 Mg Tablet) 650 mg PO Q6H PRN PRN Reason: Pain, Mild (Pain Scale 1-3) Last Admin: 05/27/23 05:21 Dose: 650 mg Documented By: GUSTAVO Acetaminophen/Butalbital/Caffeine (Butalb/Acetamin/Caff 50/325/40 Tablet) 1 tab PO Q4H PRN PRN Reason: Migraine Headache Last Admin: 05/27/23 09:48 Dose: 1 tab Documented By: ZULAY Ascorbic Acid (Ascorbic Acid 500 Mg Tablet) 500 mg PO DAILY [facility] Last Admin: 05/27/23 09:37 Dose: 500 mg Documented By: ZULAY Atovaquone (Atovaquone 750 Mg/5 Ml Oral.Susp) 1,500 mg PO DAILY [facility] Last Admin: 05/27/23 09:36 Dose: 1,500 mg Documented By: ZULAY Azathioprine (Azathioprine 50 Mg Tablet) 100 mg PO DAILY [facility] Last Admin: 05/27/23 11:25 Dose: Not Given Documented By: ZULAY Non-Admin Reason: waiting for pharm. to fill medication Azithromycin (Azithromycin 500 Mg Tablet) 500 mg PO Q24H [facility] Last Admin: 05/26/23 15:38 Dose: 500 mg Documented By: ZULAY Bisacodyl (Bisacodyl 10 Mg Supp.Rect) 10 mg NE DAILY PRN PRN Reason: Constipation Dextrose (Dextrose 50 % 25 Gm/50 Ml Syringe) 25 gm IVPUSH Q15M PRN; Protocol PRN Reason: per Hypoglycemia Standing Ord. Doxycycline Monohydrate (Doxycycline Monohydrate 100 Mg Capsule) 100 mg PO Q12H [facility] Enoxaparin Sodium (Enoxaparin Sodium 40 Mg/0.4 Ml Syringe) 40 mg SUBCUT Q24H [facility] Last Admin: 05/27/23 09:37 Dose: 40 mg Documented By: ZULAY Ferrous Sulfate (Ferrous Sulfate 324 Mg Tablet.) 324 mg PO DAILY [facility] Last Admin: 05/27/23 09:37 Dose: 324 mg Documented By: ZULAY Fluconazole (Fluconazole 100 Mg Tablet) 200 mg PO DAILY [facility] Last Admin: 05/27/23 09:37 Dose: 200 mg Documented By: ZULAY Gabapentin (Gabapentin 600 Mg Tablet) 600 mg PO TID [facility] Last Admin: 05/27/23 09:37 Dose: 600 mg Documented By: ZULAY Glucose (Glucose Gel 15 Gm Gel..Gram.) 15 gm PO Q15M PRN; Protocol PRN Reason: per Hypoglycemia Standing Ord. Guaifenesin (Guaifenesin 200 Mg/10 Ml 10 Ml Liquid) 10 ml PO Q4H PRN PRN Reason: cough Last Admin: 05/26/23 17:36 Dose: 10 ml Documented By: ZULAY Insulin Glargine (Insulin Glargine,Hum.Rec.Anlog 100 Unit/Ml 10 Ml Vial) 8 unit SUBCUT DAILY [facility] Last Admin: 05/27/23 09:36 Dose: 8 unit Documented By: ZULAY Insulin Human Lispro (Insulin Lispro 100 Unit/Ml 3 Ml Vial) 0 unit SUBCUT QIDACHS [facility]; Protocol Last Admin: 05/27/23 11:03 Dose: Not Given Documented By: ZULAY Non-Admin Reason: No Insulin Coverage Loratadine (Loratadine 10 Mg Tablet) 10 mg PO DAILY [facility] Last Admin: 05/27/23 09:37 Dose: 10 mg Documented By: ZULAY Melatonin (Melatonin 3 Mg Tablet) 6 mg PO BEDTIME PRN PRN Reason: Insomnia Non-Formulary Medication (Hyoscyamine Sulfate) 0.375 mg PO DAILY [facility] Non-Formulary Medication (Linaclotide [Linzess]) 290 mcg PO DAILY [facility] Non-Formulary Medication (Norethindrone-E.Estradiol-Iron [Blisovi Fe 11/14 ()]) 1 tab PO DAILY [facility] Omeprazole (Omeprazole 20 Mg Capsule.) 20 mg PO BEDTIME PRN PRN Reason: Acid Reflux Omeprazole (Omeprazole 20 Mg Capsule.) 20 mg PO DAILY@0630 [facility] Last Admin: 05/27/23 05:21 Dose: 20 mg Documented By: GUSTAVO Ondansetron HCl (Ondansetron Hcl 4 Mg/2 Ml Vial) 4 mg IVPUSH Q8H PRN PRN Reason: Nausea and Vomiting Last Admin: 05/27/23 05:21 Dose: 4 mg Documented By: GUSTAVO Paroxetine HCl (Paroxetine Hcl 20 Mg Tablet) 20 mg PO DAILY [facility] Last Admin: 05/27/23 09:37 Dose: 20 mg Documented By: ZULAY Pharmacy Consult (Consult Rx Perform Med Rec) 1 each MISCELLANE ONCE PRN PRN Reason: Consult order Polyethylene Glycol (Polyethylene Glycol 3350 17 Gm Powd.Pack) 17 gm PO TID PRN PRN Reason: constipation Sodium Chloride (0.9 % Sodium Chloride Flush 3 Ml Syringe) 3 ml IVFLUSH QSHIFT [facility] Last Admin: 05/27/23 09:38 Dose: 3 ml Documented By: ZULAY Sodium Chloride (Sodium Chloride 0.65 % Nasal 44 Ml Sprbtl) 1 spray NOSTRIL-B Q1H PRN PRN Reason: congestion, nose bleeds Vitamin D (Cholecalciferol (Vitamin D3) 25 Mcg Tablet) 25 mcg PO DAILY [facility] Last Admin: 05/27/23 09:37 Dose: 25 mcg Documented By: ZULAY Labs 05/27/23 06:55 05/27/23 06:55 Labs: Laboratory Results - last 24 hr 05/26/23 05/26/23 05/26/23 03:27 03:27 15:33 MCV 92.7 MCH 31.5 MCHC 34.0 RDW 14.1 Plt Count 307 MPV 10.1 Immature Gran % (Auto) 2.2 H Neut % (Auto) 33.0 L Lymph % (Auto) 55.6 H Carter % (Auto) 8.2 Eos % (Auto) 0.3 Baso % (Auto) 0.7 Lymph # (Auto) 4.0 Carter # (Auto) 0.6 Eos # (Auto) 0.0 Baso # (Auto) 0.1 Abs Immat Gran (auto) 0.16 H Absolute Neuts (auto) 2.4 Absolute Nucleated RBC 0.000 Nucleated RBC % (auto) 0.0 Smear Tech's Comments Smear Path Review SEE NOTE Anion Gap Estim Creat Clear Calc Estimated GFR POC Glucose Random Glucose Calcium Total Bilirubin Direct Bilirubin AST ALT Alkaline Phosphatase Lactate Dehydrogenase 831 H Total Protein Albumin TSH 1.12 Random Cortisol Rheumatoid Factor CMV Specimen Source CMV Qnt PCR IU/mL CMV Qnt PCR log IU/mL Toxoplasma IgG Ab Toxoplasma IgM Ab 05/26/23 05/26/23 05/26/23 15:33 15:33 15:33 MCV MCH MCHC RDW Plt Count MPV Immature Gran % (Auto) Neut % (Auto) Lymph % (Auto) Carter % (Auto) Eos % (Auto) Baso % (Auto) Lymph # (Auto) Carter # (Auto) Eos # (Auto) Baso # (Auto) Abs Immat Gran (auto) Absolute Neuts (auto) Absolute Nucleated RBC Nucleated RBC % (auto) Smear Tech's Comments Smear Path Review Anion Gap Estim Creat Clear Calc Estimated GFR POC Glucose Random Glucose Calcium Total Bilirubin Direct Bilirubin AST ALT Alkaline Phosphatase Lactate Dehydrogenase Total Protein Albumin TSH Random Cortisol Rheumatoid Factor < 13.0 CMV Specimen Source BLOOD CMV Qnt PCR IU/mL 58260 H CMV Qnt PCR log IU/mL 4.59 H Toxoplasma IgG Ab <7.20 Toxoplasma IgM Ab <8.00 05/26/23 05/26/23 05/27/23 16:10 20:52 06:55 MCV MCH MCHC RDW Plt Count MPV Immature Gran % (Auto) Neut % (Auto) Lymph % (Auto) Carter % (Auto) Eos % (Auto) Baso % (Auto) Lymph # (Auto) Carter # (Auto) Eos # (Auto) Baso # (Auto) Abs Immat Gran (auto) Absolute Neuts (auto) Absolute Nucleated RBC Nucleated RBC % (auto) Smear Tech's Comments Smear Path Review Anion Gap Estim Creat Clear Calc Estimated GFR POC Glucose 125 H 106 Random Glucose Calcium Total Bilirubin Direct Bilirubin AST ALT Alkaline Phosphatase Lactate Dehydrogenase Total Protein Albumin TSH Random Cortisol 14.2 Rheumatoid Factor CMV Specimen Source CMV Qnt PCR IU/mL CMV Qnt PCR log IU/mL Toxoplasma IgG Ab Toxoplasma IgM Ab 05/27/23 05/27/23 05/27/23 06:55 06:55 07:05 MCV 94.5 MCH 31.8 MCHC 33.7 RDW 14.6 Plt Count 333 MPV 10.7 Immature Gran % (Auto) 1.9 H Neut % (Auto) 35.4 L Lymph % (Auto) 52.7 H Carter % (Auto) 8.8 Eos % (Auto) 0.5 Baso % (Auto) 0.7 Lymph # (Auto) 3.0 Carter # (Auto) 0.5 Eos # (Auto) 0.0 Baso # (Auto) 0.0 Abs Immat Gran (auto) 0.11 H Absolute Neuts (auto) 2.0 Absolute Nucleated RBC 0.000 Nucleated RBC % (auto) 0.0 Smear Tech's Comments VERIFIED Smear Path Review Anion Gap 13 Estim Creat Clear Calc 93.9 Estimated GFR > 60 POC Glucose 147 H Random Glucose 154 H Calcium 8.1 L Total Bilirubin 0.4 Direct Bilirubin 0.2 AST 78 H ALT 32 H Alkaline Phosphatase 166 H Lactate Dehydrogenase Total Protein 5.5 L Albumin 2.4 L TSH Random Cortisol Rheumatoid Factor CMV Specimen Source CMV Qnt PCR IU/mL CMV Qnt PCR log IU/mL Toxoplasma IgG Ab Toxoplasma IgM Ab 05/27/23 10:55 MCV MCH MCHC RDW Plt Count MPV Immature Gran % (Auto) Neut % (Auto) Lymph % (Auto) Carter % (Auto) Eos % (Auto) Baso % (Auto) Lymph # (Auto) Carter # (Auto) Eos # (Auto) Baso # (Auto) Abs Immat Gran (auto) Absolute Neuts (auto) Absolute Nucleated RBC Nucleated RBC % (auto) Smear Tech's Comments Smear Path Review Anion Gap Estim Creat Clear Calc Estimated GFR POC Glucose 130 H Random Glucose Calcium Total Bilirubin Direct Bilirubin AST ALT Alkaline Phosphatase Lactate Dehydrogenase Total Protein Albumin TSH Random Cortisol Rheumatoid Factor CMV Specimen Source CMV Qnt PCR IU/mL CMV Qnt PCR log IU/mL Toxoplasma IgG Ab Toxoplasma IgM Ab Microbiology Microbiology Results: Microbiology 05/25/23 22:06 Blood Culture - Final Blood - Venous Coag negative Staphylococcus 05/25/23 Unknown Blood Culture - Preliminary Blood - Venous No growth after 24 hours. Assessment and Plan (1) CMV (cytomegalovirus infection): Status: Acute Plan 42-year-old female with pertinent history of Crohn's disease, type 1 insulin-dependent diabetes mellitus, mood disorder, gastroesophageal reflux disease, peripheral neuropathy, Raynaud's disease who presents to the emergency department for evaluation of fevers of unknown origin #CMV -IV gancyclovir to start tomorrow per ID; immunocompromised patient -GI to perform sigmoidoscopy with biopsy to eval for CMV colitis 05/28 -Tylenol prn fevers -Symptomatic management #Fever unknown origin -likely r/t above -Negative t spot, hiv, blood cultures, rheum factor, hepatitis panel, respiratory panel -Tick panel remains pending -Per ID continue doxycycline, mepron, and azithro until tick borne illness ruled out -Per GI, heme/onc consult placed #Acute on chronic normocytic anemia -now with evidence of hemolysis- LDH 831 -likely 2/2 acute illness -Negative bone marrow biopsy suboptimal but negative per onc -Oncology consult placed #Elevated LFTs -liekly in setting of viral vs tick borne illness -trending down #Type 1 diabetes- controlled -continue basal insulin, humalog on ss -poc glucose -diabetic diet #Crohns -no acute flare -continue home meds -CT with chronic changes of inflammation in rectum with perirectal lymphadenopathy -Per GI, oncology consult placed -Sigmoidoscopy as above #Oral/Esophageal candidiasis -continue course (last dose 06/02) #Peripheral neuropathy -etiology unclear -continue home meds #Mood disorder -continue home meds DVT prophylaxis- lovenox Full code Pt requires ongoing inpt stay for management of CMV in immunocomproomised patient requiring IV antivirals and sigmoidoscopy to evaluate for CMV colitis as well as expert consultation. Time Spent With Patient Time: Total time managing care of this patient today ____ minutes. Quality Stroke Does the patient have a stroke diagnosis?: No VTE Prior VTE?: No VTE Risk Level:: Medical - moderate - high VTE Device Contraindication: Treatment Not Indicated VTE Drug Contraindication: N/A - Med Ordered
[2023-05-27 15:03] VITALS: BP 132/80; PULSE 104; RESP 20; TEMP 37; O2SAT 99
[2023-05-27 16:05] LABS: Glucose, Whole Blood 105 mg/dL (60-115)
[2023-05-27] MEDS: Omeprazole 20 MG CAPSULE.DR PO (16:18)
[2023-05-27] MEDS: Azithromycin 500 MG TABLET PO (16:18)
[2023-05-27 16:26] LABS: Adenovirus PCR Not Detected (Not Detect.); Bordetella parapertussis PCR Not Detected (Not Detect.); Bordetella pertussis PCR Not Detected (Not Detect.); Chlamydia pneumoniae PCR Not Detected (Not Detect.); Coronavirus 229E PCR Not Detected (Not Detect.); Coronavirus HKU1 PCR Not Detected (Not Detect.); Coronavirus NL63 PCR Not Detected (Not Detect.); Coronavirus OC43 PCR Not Detected (Not Detect.); Human metapneumovirus PCR Not Detected (Not Detect.); Influenza A PCR Not Detected (Not Detect.); Influenza B PCR Not Detected (Not Detect.); Mycoplasma pneumoniae PCR Not Detected (Not Detect.); Parainfluenza 1 PCR Not Detected (Not Detect.); Parainfluenza 2 PCR Not Detected (Not Detect.); Parainfluenza 3 PCR Not Detected (Not Detect.); Parainfluenza 4 PCR Not Detected (Not Detect.); RSV PCR Not Detected (Not Detect.); Rhino/Enterovirus PCR Not Detected (Not Detect.); SARS-CoV-2 PCR Not Detected (Not Detect.)
--- NOTE | 2023-05-27 16:29 | PM.EVENT ---
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 I reviewed these results with Karen. Ebenezer sig scheduled for 05/28 to obtain rectosigmoid biopsies and evaluate for CMV colitis. She is aware of risks and benefits and agrees to proceed. Time Spent With Patient Time: Total time managing care of this patient today ____ minutes.
[2023-05-27] MEDS: guaiFENesin 200 MG/10 ML 10 ML LIQUID PO (18:15)
[2023-05-27 18:58] LABS: A. Phagocytphilium DNA,RT-PCR NOT DETECTED (NOT DETECTED); Babesia Microti DNA, RT-PCR NOT DETECTED (NOT DETECTED); Borrelia Miyamotoi,DNA RT-PCR NOT DETECTED (NOT DETECTED); E.Chaffeensis DNA RT-PCR NOT DETECTED (NOT DETECTED); Lyme(Borrelia ssp)DNA RT-PCR NOT DETECTED (NOT DETECTED)
[2023-05-27 20:00] VITALS: BP 102/63; PULSE 127; RESP 20; TEMP 36.7; O2SAT 96
[2023-05-27 20:24] LABS: Glucose, Whole Blood 167 mg/dL (60-115)
--- NOTE | 2023-05-27 21:18 | PC.NURSE ---
pt NPO after midnight. Per doctor order insulin was held.
--- NOTE | 2023-05-27 22:52 | P.PNID_ITS ---
Subjective Subjective Date of Service: 05/27/23 Interval History: she feels slightly better and temperature better at 100.5 and LFTs down Critical Care Time (minutes): 15 Objective Data Labs 05/27/23 06:55 05/27/23 06:55 Labs: Laboratory Results - last 24 hr 05/25/23 05/26/23 05/26/23 22:06 03:27 15:33 WBC RBC Hgb Hct MCV MCH MCHC RDW Plt Count MPV Immature Gran % (Auto) Neut % (Auto) Lymph % (Auto) [place] % (Auto) Eos % (Auto) Baso % (Auto) Lymph # (Auto) [place] # (Auto) Eos # (Auto) Baso # (Auto) Abs Immat Gran (auto) Absolute Neuts (auto) Absolute Nucleated RBC Nucleated RBC % (auto) Smear Tech's Comments Smear Path Review SEE NOTE Sodium Potassium Chloride Carbon Dioxide Anion Gap BUN Creatinine Estim Creat Clear Calc Estimated GFR POC Glucose Random Glucose Calcium Total Bilirubin Direct Bilirubin AST ALT Alkaline Phosphatase Total Protein Albumin Random Cortisol Respiratory Panel Kelley Adenovirus (Rapid PCR) A.phagocytophil DNA PCR NOT DETECTED Babesia microti DNA PCR NOT DETECTED B.pert (TEM-PCR) B.parapertussis DNA PCR Borrelia sp DNA (PCR) NOT DETECTED Borrelia miyamotoi (PCR) NOT DETECTED C. pneumoniae DNA (PCR) Coronavirus OC43 (PCR) Coronavirus HKU1 (PCR) Coronavirus 229E (PCR) Coronavirus NL63 (PCR) CMV Specimen Source CMV Qnt PCR IU/mL CMV Qnt PCR log IU/mL E.chaffeensis DNA (PCR) NOT DETECTED Human Metapneumovir PCR Influenza A (RT-PCR) Influenza B (RT-PCR) M. pneumoniae (PCR) Parainfluenza 1 (PCR) Parainfluenza 2 (PCR) Parainfluenza 3 (PCR) Parainfluenza 4 (PCR) RSV (PCR) Entero/Rhino (PCR) SARS-CoV-2 RNA (RT-PCR) Toxoplasma IgG Ab <7.20 Toxoplasma IgM Ab <8.00 Tick-borne Disease Ab SEE NOTE 05/26/23 05/26/23 05/27/23 15:33 15:44 06:55 WBC RBC Hgb Hct MCV MCH MCHC RDW Plt Count MPV Immature Gran % (Auto) Neut % (Auto) Lymph % (Auto) [place] % (Auto) Eos % (Auto) Baso % (Auto) Lymph # (Auto) [place] # (Auto) Eos # (Auto) Baso # (Auto) Abs Immat Gran (auto) Absolute Neuts (auto) Absolute Nucleated RBC Nucleated RBC % (auto) Smear Tech's Comments Smear Path Review Sodium Potassium Chloride Carbon Dioxide Anion Gap BUN Creatinine Estim Creat Clear Calc Estimated GFR POC Glucose Random Glucose Calcium Total Bilirubin Direct Bilirubin AST ALT Alkaline Phosphatase Total Protein Albumin Random Cortisol 14.2 Respiratory Panel Kelley See Note Adenovirus (Rapid PCR) Not Detected A.phagocytophil DNA PCR Babesia microti DNA PCR B.pert (TEM-PCR) Not Detected B.parapertussis DNA PCR Not Detected Borrelia sp DNA (PCR) Borrelia miyamotoi (PCR) C. pneumoniae DNA (PCR) Not Detected Coronavirus OC43 (PCR) Not Detected Coronavirus HKU1 (PCR) Not Detected Coronavirus 229E (PCR) Not Detected Coronavirus NL63 (PCR) Not Detected CMV Specimen Source BLOOD CMV Qnt PCR IU/mL 52825 H CMV Qnt PCR log IU/mL 4.59 H E.chaffeensis DNA (PCR) Human Metapneumovir PCR Not Detected Influenza A (RT-PCR) Not Detected Influenza B (RT-PCR) Not Detected M. pneumoniae (PCR) Not Detected Parainfluenza 1 (PCR) Not Detected Parainfluenza 2 (PCR) Not Detected Parainfluenza 3 (PCR) Not Detected Parainfluenza 4 (PCR) Not Detected RSV (PCR) Not Detected Entero/Rhino (PCR) Not Detected SARS-CoV-2 RNA (RT-PCR) Not Detected Toxoplasma IgG Ab Toxoplasma IgM Ab Tick-borne Disease Ab 05/27/23 05/27/23 05/27/23 06:55 06:55 07:05 WBC 5.7 RBC 3.08 L Hgb 9.8 L Hct 29.1 L MCV 94.5 MCH 31.8 MCHC 33.7 RDW 14.6 Plt Count 333 MPV 10.7 Immature Gran % (Auto) 1.9 H Neut % (Auto) 35.4 L Lymph % (Auto) 52.7 H [place] % (Auto) 8.8 Eos % (Auto) 0.5 Baso % (Auto) 0.7 Lymph # (Auto) 3.0 [place] # (Auto) 0.5 Eos # (Auto) 0.0 Baso # (Auto) 0.0 Abs Immat Gran (auto) 0.11 H Absolute Neuts (auto) 2.0 Absolute Nucleated RBC 0.000 Nucleated RBC % (auto) 0.0 Smear Tech's Comments VERIFIED Smear Path Review Sodium 138 Potassium 3.8 Chloride 105 Carbon Dioxide 24 Anion Gap 13 BUN 8 L Creatinine 0.68 Estim Creat Clear Calc 93.9 Estimated GFR > 60 POC Glucose 147 H Random Glucose 154 H Calcium 8.1 L Total Bilirubin 0.4 Direct Bilirubin 0.2 AST 78 H ALT 32 H Alkaline Phosphatase 166 H Total Protein 5.5 L Albumin 2.4 L Random Cortisol Respiratory Panel Kelley Adenovirus (Rapid PCR) A.phagocytophil DNA PCR Babesia microti DNA PCR B.pert (TEM-PCR) B.parapertussis DNA PCR Borrelia sp DNA (PCR) Borrelia miyamotoi (PCR) C. pneumoniae DNA (PCR) Coronavirus OC43 (PCR) Coronavirus HKU1 (PCR) Coronavirus 229E (PCR) Coronavirus NL63 (PCR) CMV Specimen Source CMV Qnt PCR IU/mL CMV Qnt PCR log IU/mL E.chaffeensis DNA (PCR) Human Metapneumovir PCR Influenza A (RT-PCR) Influenza B (RT-PCR) M. pneumoniae (PCR) Parainfluenza 1 (PCR) Parainfluenza 2 (PCR) Parainfluenza 3 (PCR) Parainfluenza 4 (PCR) RSV (PCR) Entero/Rhino (PCR) SARS-CoV-2 RNA (RT-PCR) Toxoplasma IgG Ab Toxoplasma IgM Ab Tick-borne Disease Ab 05/27/23 05/27/23 05/27/23 10:55 16:01 19:58 WBC RBC Hgb Hct MCV MCH MCHC RDW Plt Count MPV Immature Gran % (Auto) Neut % (Auto) Lymph % (Auto) [place] % (Auto) Eos % (Auto) Baso % (Auto) Lymph # (Auto) [place] # (Auto) Eos # (Auto) Baso # (Auto) Abs Immat Gran (auto) Absolute Neuts (auto) Absolute Nucleated RBC Nucleated RBC % (auto) Smear Tech's Comments Smear Path Review Sodium Potassium Chloride Carbon Dioxide Anion Gap BUN Creatinine Estim Creat Clear Calc Estimated GFR POC Glucose 130 H 105 167 H Random Glucose Calcium Total Bilirubin Direct Bilirubin AST ALT Alkaline Phosphatase Total Protein Albumin Random Cortisol Respiratory Panel Kelley Adenovirus (Rapid PCR) A.phagocytophil DNA PCR Babesia microti DNA PCR B.pert (TEM-PCR) B.parapertussis DNA PCR Borrelia sp DNA (PCR) Borrelia miyamotoi (PCR) C. pneumoniae DNA (PCR) Coronavirus OC43 (PCR) Coronavirus HKU1 (PCR) Coronavirus 229E (PCR) Coronavirus NL63 (PCR) CMV Specimen Source CMV Qnt PCR IU/mL CMV Qnt PCR log IU/mL E.chaffeensis DNA (PCR) Human Metapneumovir PCR Influenza A (RT-PCR) Influenza B (RT-PCR) M. pneumoniae (PCR) Parainfluenza 1 (PCR) Parainfluenza 2 (PCR) Parainfluenza 3 (PCR) Parainfluenza 4 (PCR) RSV (PCR) Entero/Rhino (PCR) SARS-CoV-2 RNA (RT-PCR) Toxoplasma IgG Ab Toxoplasma IgM Ab Tick-borne Disease Ab Microbiology Microbiology Results: Microbiology 05/25/23 22:06 Blood - Venous Blood Culture - Final Coag negative Staphylococcus 05/25/23 Unknown Blood - Venous Blood Culture - Preliminary No growth after 24 hours. Physical Exam Vital Signs: Vital Signs: Last Vital Signs Temp 98.0 F 05/27/23 20:00 Pulse 127 H 05/27/23 20:00 Resp 20 05/27/23 20:00 BP 102/63 05/27/23 20:00 Pulse Ox 96 05/27/23 20:00 O2 Del Method Room Air 05/27/23 20:00 BMI result Body Mass Index 26.0 Const: General: cooperative HEENT: Head: Yes normal to inspection Face and sinus: Yes normal facial exam Mouth: Normal oral and palatal mucosa present Teeth and gingiva: dentition normal Eyes: General: appearance normal, both eyes and all related structures Pupils: Equal, round and reactive pupils present Resp: Effort & Inspection: normal respiratory effort Cardio: Rate: regular rate Rhythm: regular rhythm GI: Palpation (GI): Soft to palpation and nontender : General: Yes no CVA tenderness Back/Spine/Pelvis: Back: no CVA tenderness Skin: General skin exam: no rashes or lesions noted Neuro: General: moves all extremities Cranial nerves: Yes Equal, round and reactive pupils present Extrem: General: Yes normal to inspection Psych: Appearance: grossly normal Assessment and Plan Assessment and plan (1) CMV (cytomegalovirus infection): Problem details: She has elevated CMV PCR 38,000 She has tick serology pending Status: Acute Assessment and Plan: Ganciclovir Look for CMV inclusions biopsy rectal area (seeing Dr Correa). Continue Doxycycline,mepron and Azithromycin for now. (2) Fever of unknown origin: Problem details: She is tachypneic and tachycardic with fever She needs evaluation PE Status: Acute (3) Elevated LFTs: Status: Acute Time Spent With Patient Time: Total time managing care of this patient today ____ minutes.
[2023-05-28] VITALS (9 sets, daily range): BP systolic 91–134; BP diastolic 49–75; PULSE 84–115; RESP 16–20; TEMP 36.1–38.1; O2SAT 95–100
[2023-05-28] MEDS: Acetaminophen 325 MG TABLET 650 MG PO ×2 (03:48→18:06)
[2023-05-28 03:54] LABS: Glucose, Whole Blood 104 mg/dL (60-115)
[2023-05-28] MEDS: Doxycycline Monohydrate 100 MG CAPSULE PO ×2 (05:25→16:43)
[2023-05-28] MEDS: Butalb/Acetamin/Caff 50/325/40 TABLET 1 TAB PO (05:36)
--- NOTE | 2023-05-28 07:00 | CA_ITS ---
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 The calculated ejection fraction is 60% by biplane method. - No obvious valvular pathology seen on this study. Findings Left Ventricle Normal left ventricular cavity size. There is normal left ventricular wall thickness. The left ventricular systolic function is normal. The calculated ejection fraction is 60% by biplane method. There is no evidence of regional wall motion abnormalities. Diastolic function is normal for age. LV peak GLS -17.3%; possible underestimate. Right Ventricle Normal right ventricular cavity size and systolic function. Atria Both atria are normal in size. Aortic Valve There is mild calcification of the aortic valve. There is no aortic valve stenosis. There is no aortic valve regurgitation. Mitral Valve The mitral valve appears normal. There is trace mitral valve regurgitation. There is no mitral valve stenosis. Pulmonic Valve The pulmonic valve is likely normal. Tricuspid Valve Normal tricuspid valve structure. There is trace tricuspid valve regurgitation. There is no evidence of pulmonary hypertension. Great Vessels The asc aorta is normal in size. Venous The inferior vena cava is normal in size and collapses greater than 50% with inspiration. Pericardium/Pleural There is no evidence of pericardial effusion. Prior Study Comparison No significant change compared to prior study dated: 04/26/2021. Recommendations, Care & Conclusions No obvious valvular pathology seen on this study. Measurements 2D Linear Measurements IVSd: 0.88 0.6-0.9/0.6-1.0 cm LVIDd: 4.40 3.9-5.3/4.2-5.9 cm LVIDd Index: 2.67 2.4-3.2/2.2-3.1 cm/m2 LVIDs: 2.86 2.0-3.6 cm LVPWd: 0.88 0.7-1.1 cm LA Diam: 3.10 2.7-3.8/3.0-4.0 cm LAIDs Index: 1.88 1.5-2.3 cm/m2 LV Mass: 154.38 67-162/88-224 g LV Mass Index: 93.57 43-95/49-115 g/m2 LVOT Diam: 1.80 3.0+(-)1.3 cm 2D Systolic Function EF 4C: 60.70 >55% EF 2C: 57.50 >55% EF BiP: 60.00 >55% Mitral Valve MV Pk E: 0.81 MV PK A: 0.79 MV Decel Time: 213.00 E/A: 1.00 E'Lateral: 10.60 E'Medial: 8.49 E/E' Med: 9.50 E/E' Lat: 7.60 PHT: 62.00 MVA PHT: 3.55 Decel [place]: 3.79 Aortic Valve AoV Pk Freddie: 1.43 AoV Mn Freddie: 1.06 AoV VTI: 0.26 AoV Pk Grad: 8.00 Aov Mn Grad: 5.00 NICOLE Cont.VTI: 1.91 LVOT LVOT Pk Freddie: 1.08 LVOT Mn Freddie: 0.79 LVOT VTI: 0.19 LVOT Pk Grad: 5.00 LVOT Mn Grad: 3.00 LVOT Diam: 1.80 LVOT Area: 2.54 Diastolic Function MV Pk E: 0.81 MV Pk A: 0.79 E/A: 1.00 E'Medial: 8.49 E/E' Med: 9.50 E' Laterial: 10.60 E/E' Lat: 7.60 Right Ventricle TAPSE (mm): 19.60 TVS' Freddie: 11.60 Tricuspid Valve TR Pk Freddie: 1.71 TR Pk Grad: 12.00 RA Press: 3.00 RVSP: 15.00 Great Vessels Aorta Sinus of Valsalva: 3.40 2.0-3.5 cm Ao Asc: 3.30 2.1-3.4 cm Pulmonary Valve PV Pk Freddie: 0.94 Peak PV Grad: 4.00 Updated in Other Vendor System with Status of Final Keegan Cabrera MD electronically signed on 05/28/2023 3:26:40 PM with status of Final
[2023-05-28 07:27] LABS: Glucose, Whole Blood 117 mg/dL (60-115)
[2023-05-28 07:36] LABS: Basophils Absolute Auto 0.1 X10*3/uL (0.0-0.2); Basophils Percent Auto 0.7 % (0-2); Eosinophils Absolute Auto 0.1 X10*3/uL (0.0-0.4); Hematocrit 29.2 % (37.0-47.0); Hemoglobin 9.7 g/dl (12.0-16.0); Imm Gran Abs Auto 0.18 X10*3/uL (0.00-0.03); Imm Gran Pct Auto 2.6 % (0.0-0.4); Lymphocytes Absolute Auto 3.4 X10*3/uL (1.2-4.9); Lymphocytes Percent Auto 48.6 % (20-40); MANUAL DIFF FLAG SCAN; Mean Corpuscular HGB Conc 33.2 g/dl (31.0-35.0); Mean Corpuscular Volume 96.4 fL (80.0-98.0); Mean Platelet Volume 10.7 fL (9.4-12.3); Monocytes Absolute Auto 0.7 X10*3/uL (0.1-1.2); Neutrophils Absolute Auto 2.6 x10*3/uL (2.0-8.3); Neutrophils Percent Auto 37.1 % (45-73); Platelet Count 339 X10*3/uL (160-400); Red Blood Count 3.03 X10*6/uL (4.20-5.50); Red Cell Distribution Width 14.6 % (11.0-16.0); SCAN SMEAR FLAG 1; White Blood Count 6.9 X10*3/uL (4.8-10.8)
[2023-05-28 07:55] LABS: Alanine Aminotransferase 27 U/L (0-31); Albumin Level 2.3 g/dL (3.5-5.0); Alkaline Phosphatase 171 U/L (39-117); Anion Gap 13 (12-20); Aspartate Amino Transferase 58 U/L (5-31); Bilirubin Direct 0.2 mg/dL (0.0-0.5); Bilirubin Total 0.3 mg/dL (0.0-1.0); Blood Urea Nitrogen 10 mg/dL (9-16); Carbon Dioxide 24 mmol/L (22-29); Chloride 106 mmol/L (96-108); Creatinine Clr Calc Pharmacy 103.1; Estimated Glomerular Filt Rate > 60; Glucose Random 117 mg/dL (60-115); Potassium 3.8 mmol/L (3.3-5.1); Sodium 139 mmol/L (135-145); Total Protein 5.3 g/dL (6.5-8.0)
[2023-05-28 07:56] LABS: SLIDE REVIEW VERIFIED
[2023-05-28] MEDS: Sodium Phosphate,Mono-Dibasic 133 ML ENEMA PR (08:43)
--- NOTE | 2023-05-28 08:56 | PC.NURSE ---
computer system went down during patient assessment. Anesthesia preoperative record done on paper.
--- NOTE | 2023-05-28 09:59 | PM.OP ---
Brief Operative Note Date of Service: 05/28/23 Pre-op diagnosis: FUO CMV viremia abnl ct scan colon Post-op diagnosis: same Procedure: flex sig Surgeon: Satinder Correa Anesthesia: MAC Was an Protection Analyst used for this Procedure?: No Estimated blood loss (mL): 2 Pathology: other Condition: stable Disposition: PACU
--- NOTE | 2023-05-28 10:00 | PM.EVENT ---
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 bx's obtained for histopathology and cmv culture. Rec: advance diet f/u bx results continue present management. Time Spent With Patient Time: Total time managing care of this patient today ____ minutes.
[2023-05-28 11:06] LABS: Glucose, Whole Blood 113 mg/dL (60-115)
--- NOTE | 2023-05-28 11:24 | HO.ANESPROP2 ---
HPI - Anesthesia Eval Consult details Narrative: 42-year-old female with a history of Crohn's colitis presenting for sigmoidoscopy with biopsy for FUO workup PMFSH Active Problems Active Problems: All Active Problems (Updated 05/27/23 @ 22:54 by Yu Alanis MD) CMV (cytomegalovirus infection) (Acute) Fever of unknown origin (Acute) Elevated LFTs (Acute) Abdominal pain (Acute) Fever (Acute) Fever of unknown origin (Acute) DDD (degenerative disc disease), lumbar (Acute) Piriformis muscle pain (Acute) Palpitations (Acute) Raynaud's disease (Acute) Neuropathy (Acute) Varicose veins of right lower extremity with inflammation (Acute) Raynaud's syndrome without gangrene (Acute) Abdominal pain (Acute) Anemia (Acute) [facility] systemic steroid user (Acute) Chronic sinusitis (Acute) Crohn's disease (Acute) Anxiety (Acute) Vitamin D deficiency (Acute) Iron deficiency (Acute) Normal pelvic exam (Acute) Annual physical exam (Acute) 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 (Acute) [facility] (current) use of insulin (Acute) 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), managed as type 1 (Acute) Postlaminectomy syndrome of lumbar region (Acute) Diabetes type 1, controlled (Acute) Chronic pain syndrome (Acute) Other specified mononeuropathies (Acute) Spondylosis of lumbar region without myelopathy or radiculopathy (Acute) Past Medical History 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), managed as type 1 [facility] (current) use of insulin Normal pelvic exam Other specified mononeuropathies Postlaminectomy syndrome of lumbar region Spondylosis of lumbar region without myelopathy or radiculopathy Vitamin D deficiency Family History Family History Mother Tongue cancer Father Type 2 diabetes mellitus Retinopathy Neuropathy Angiopathy Blindness Renal failure Hypertension Cataract Skin cancer Paternal Uncle Substance use disorder Family history of problems with anesthesia: No Surgical History Surgical History H/O tooth extraction History of hemilaminectomy History of root canal procedure Hx of colonoscopy History of Problems with Anesthesia: No Social History Social History Household Members: Spouse and Children Household Members Other:: , 2 sons (11. 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 If so, by whom?: No Do you feel safe in your current relationship?: Yes Is there a partner from a previous relationship who is making you feel unsafe now?: No Are you made to feel afraid or neglected: No Are you DNR?: No Advance Directives: No Advance Directives Information Provided: Yes Advance Directives on File: No Do you have thoughts of harming others: None Do you have a plan to hurt others: No Plan Recently lost weight without trying: No Nutrition Risks: No Nutritional Risk Patient : No : No Poor oral hygiene: No service: No Current occupational status: employed Cognitive needs: No Hearing needs: No Vision needs: Yes Meds Allergies Allergy/AdvReac Type Severity Reaction Status Date / Time cephalexin Allergy Unknown RASH Verified 05/25/23 15:36 Penicillins Allergy Unknown RASH Verified 05/25/23 15:36 Sulfa (Sulfonamide Allergy Unknown RASH Verified 05/25/23 15:36 Antibiotics) Active Medications: Current Medications Acetaminophen (Acetaminophen 325 Mg Tablet) 650 mg PO Q6H PRN PRN Reason: Pain, Mild (Pain Scale 1-3) Last Admin: 05/28/23 03:48 Dose: 650 mg Acetaminophen/Butalbital/Caffeine (Butalb/Acetamin/Caff 50/325/40 Tablet) 1 tab PO Q4H PRN PRN Reason: Migraine Headache Last Admin: 05/28/23 05:36 Dose: 1 tab Ascorbic Acid (Ascorbic Acid 500 Mg Tablet) 500 mg PO DAILY NEGR[facility]O Last Admin: 05/27/23 09:37 Dose: 500 mg Atovaquone (Atovaquone 750 Mg/5 Ml Oral.Susp) 1,500 mg PO DAILY [facility] Last Admin: 05/27/23 09:36 Dose: 1,500 mg Azathioprine (Azathioprine 50 Mg Tablet) 100 mg PO DAILY [facility] Last Admin: 05/27/23 11:25 Dose: Not Given Azithromycin (Azithromycin 500 Mg Tablet) 500 mg PO Q24H [facility] Last Admin: 05/27/23 16:18 Dose: 500 mg Bisacodyl (Bisacodyl 10 Mg Supp.Rect) 10 mg MD DAILY PRN PRN Reason: Constipation Dextrose (Dextrose 50 % 25 Gm/50 Ml Syringe) 25 gm IVPUSH Q15M PRN; Protocol PRN Reason: per Hypoglycemia Standing Ord. Doxycycline Monohydrate (Doxycycline Monohydrate 100 Mg Capsule) 100 mg PO Q12H [facility] Last Admin: 05/28/23 05:25 Dose: 100 mg Enoxaparin Sodium (Enoxaparin Sodium 40 Mg/0.4 Ml Syringe) 40 mg SUBCUT Q24H [facility] Last Admin: 05/27/23 09:37 Dose: 40 mg Ferrous Sulfate (Ferrous Sulfate 324 Mg Tablet.Dr) 324 mg PO DAILY [facility] Last Admin: 05/27/23 09:37 Dose: 324 mg Fluconazole (Fluconazole 100 Mg Tablet) 200 mg PO DAILY [facility] Last Admin: 05/27/23 09:37 Dose: 200 mg Gabapentin (Gabapentin 600 Mg Tablet) 600 mg PO TID [facility] Last Admin: 05/27/23 21:12 Dose: 600 mg Glucose (Glucose Gel 15 Gm Gel..Gram.) 15 gm PO Q15M PRN; Protocol PRN Reason: per Hypoglycemia Standing Ord. Guaifenesin (Guaifenesin 200 Mg/10 Ml 10 Ml Liquid) 10 ml PO Q4H PRN PRN Reason: cough Last Admin: 05/27/23 18:15 Dose: 10 ml Ganciclovir Sodium 325 mg/ (Sodium Chloride) 106.5 mls @ 106.5 mls/hr IV Q12H [facility] Insulin Glargine (Insulin Glargine,Hum.Rec.Anlog 100 Unit/Ml 10 Ml Vial) 8 unit SUBCUT DAILY [facility] Last Admin: 05/27/23 09:36 Dose: 8 unit Insulin Human Lispro (Insulin Lispro 100 Unit/Ml 3 Ml Vial) 0 unit SUBCUT QIDACHS [facility]; Protocol Last Admin: 05/27/23 21:13 Dose: Not Given Loratadine (Loratadine 10 Mg Tablet) 10 mg PO DAILY [facility] Last Admin: 05/27/23 09:37 Dose: 10 mg Melatonin (Melatonin 3 Mg Tablet) 6 mg PO BEDTIME PRN PRN Reason: Insomnia Pat Own(Linaclotide [Linzess] 290 Mcg Capsule) 290 mcg PO DAILY [facility] Pat Own ( Norethindrone-E. Estradiol-Iron [ Blisovi Fe 11/14 () ] 1 Mg-20 Mc 1 tab PO DAILY [facility] Pat Own(Hyoscyamine Sulfate 0.375 Mg Tablet Extended Release 12 Hr) 0.375 mg PO DAILY [facility] Pat Own Med ( Pantoprazole 40mg Tab) 1 each PO BEDTIME PRN PRN Reason: Acid Reflux Non-Formulary Medication (Patient Own Medication) 1 each PO DAILY [facility] Omeprazole (Omeprazole 20 Mg Capsule.Dr) 20 mg PO DAILY@0630 [facility] Last Admin: 05/27/23 16:30 Dose: Not Given Ondansetron HCl (Ondansetron Hcl 4 Mg/2 Ml Vial) 4 mg IVPUSH Q8H PRN PRN Reason: Nausea and Vomiting Last Admin: 05/27/23 05:21 Dose: 4 mg Paroxetine HCl (Paroxetine Hcl 20 Mg Tablet) 20 mg PO DAILY [facility] Last Admin: 05/27/23 09:37 Dose: 20 mg Pharmacy Consult (Consult Rx Perform Med Rec) 1 each MISCELLANE ONCE PRN PRN Reason: Consult order Polyethylene Glycol (Polyethylene Glycol 3350 17 Gm Powd.Pack) 17 gm PO TID PRN PRN Reason: constipation Sodium Biphosphate/Sodium Phosphate (Sodium Phosphate,Story-Dibasic 133 Ml Enema) 133 ml MD ONCE ONE Stop: 05/29/23 07:01 Last Admin: 05/28/23 08:43 Dose: 133 ml Sodium Chloride (0.9 % Sodium Chloride Flush 3 Ml Syringe) [facility] Admin: 05/27/23 21:23 Dose: 3 ml Sodium Chloride (Sodium Chloride 0.65 % Nasal 44 Ml Sprbtl) 1 spray NOSTRIL-B Q1H PRN PRN Reason: congestion, nose bleeds Vitamin D (Cholecalciferol (Vitamin D3) 25 Mcg Tablet) 25 mcg PO DAILY [facility] Last Admin: 05/27/23 09:37 Dose: 25 mcg Home Medications Medication Instructions Recorded Confirmed Last Taken Type ustekinumab 90 mg/mL subcutaneous 90 mg subcut Q8W 12/10/21 05/26/23 Unknown History syringe (Stelara) tumeric 100 mg-radha 150 mg-olive 1 cap PO DAILY 07/31/22 05/26/23 2 Weeks Ago History 50 mg-oreg 150 mg-caprylate capsule ~05/12/23 azathioprine 50 mg tablet 100 mg PO DAILY 02/19/23 05/26/23 05/25/23 History pantoprazole 40 mg tablet,delayed 40 mg PO DAILY@0630 02/19/23 05/26/23 05/25/23 History release insulin glargine U-300 conc 300 6 unit subcut DAILY 04/16/23 05/26/23 05/25/23 History unit/mL (1.5 mL) subcutaneous pen (Evelio SolTri U-300 Insulin) mjafaur-zrofpanzfcarq-ifaxkykv 250 1 tab PO DAILY PRN Migraine 05/26/23 05/26/23 05/25/23 History mg-250 mg-65 mg tablet (Excedrin Headache Migraine) ferrous sulfate 324 mg (65 mg 324 mg PO DAILY 05/26/23 05/26/23 05/25/23 History iron) tablet,delayed release fluconazole 200 mg tablet 200 mg PO DAILY 05/26/23 05/26/23 05/25/23 History hyoscyamine sulfate 0.375 mg 0.375 mg PO DAILY 05/26/23 05/26/23 05/25/23 History tablet,extended release,12 hr insulin lispro 100 unit/mL 1 sliding scale dose subcut TIDAC 05/26/23 05/26/23 Unknown History subcutaneous solution linaclotide 290 mcg capsule 290 mcg PO DAILY 05/26/23 05/26/23 05/25/23 History (Linzess) loratadine 10 mg tablet 10 mg PO DAILY 05/26/23 05/26/23 05/25/23 History norethindrone 1 mg-ethinyl 1 tab PO DAILY 05/26/23 05/26/23 05/25/23 History estradiol 20 mcg (21)-iron 75 mg (7) tablet (Blisovi Fe 11/14 (28)) pantoprazole 40 mg tablet,delayed 40 mg PO BEDTIME PRN Acid Reflux 05/26/23 05/26/23 Unknown History release Exam Exam Date and Time: May 28, 2023 1124 Height,Weight and Vital Signs: Height 5 ft 2 in Weight 142 lb Last Vital Signs Temp 97 F 05/28/23 09:35 Pulse 91 05/28/23 09:35 Resp 20 05/28/23 09:35 BP 104/75 05/28/23 09:35 Pulse Ox 100 05/28/23 09:35 O2 Del Method Room Air 05/28/23 09:35 Pertinent Lab Results Pertinent Lab Results: Laboratory Tests 05/25/23 05/25/23 05/25/23 21:17 22:06 22:06 WBC RBC Hgb Hct MCV MCH MCHC RDW Plt Count MPV Immature Gran % (Auto) Neut % (Auto) Lymph % (Auto) Story % (Auto) Eos % (Auto) Baso % (Auto) Lymph # (Auto) Story # (Auto) Eos # (Auto) Baso # (Auto) Abs Immat Gran (auto) Absolute Neuts (auto) Absolute Nucleated RBC Nucleated RBC % (auto) Smear Tech's Comments Smear Path Review ESR D-Dimer High Sensitivty 5734 Sodium Potassium Chloride Carbon Dioxide Anion Gap BUN Creatinine Estim Creat Clear Calc Estimated GFR POC Glucose Random Glucose Lactic Acid 2.4 H* Lactic Acid F/U @ 2Hr Calcium Total Bilirubin Direct Bilirubin AST ALT Alkaline Phosphatase Lactate Dehydrogenase C-Reactive Protein Total Protein Albumin Beta-Hydroxybutyrate 0.09 TSH Random Cortisol Urine Color Urine Appearance Urine pH Ur Specific [place] Urine Protein Urine Glucose (UA) Urine Ketones Urine Blood Urine Nitrite Ur Leukocyte Esterase Rheumatoid Factor Respiratory Panel Kelley Adenovirus (Rapid PCR) A.phagocytophil DNA PCR Babesia microti DNA PCR B.pert (TEM-PCR) B.parapertussis DNA PCR Borrelia sp DNA (PCR) Borrelia miyamotoi (PCR) C. pneumoniae DNA (PCR) Coronavirus OC43 (PCR) Coronavirus HKU1 (PCR) Coronavirus 229E (PCR) COVID-19 ([facility]) COVID-19 Clin Com Coronavirus NL63 (PCR) CMV Specimen Source CMV Qnt PCR IU/mL CMV Qnt PCR log IU/mL E.chaffeensis DNA (PCR) Hepatitis A IgM Ab Hep Bs Antigen Hep Bs Antibody Hep B Core Total Ab Hepatitis C Ab (EIA) HIV 1&2 Ab/P24 Ag 4thGn Human Metapneumovir PCR Influenza Type A (BRENDA) Influenza A (RT-PCR) Influenza Type B (BRENDA) Influenza B (RT-PCR) Influenza A & B Note M. pneumoniae (PCR) Parainfluenza 1 (PCR) Parainfluenza 2 (PCR) Parainfluenza 3 (PCR) Parainfluenza 4 (PCR) RSV (PCR) Entero/Rhino (PCR) SARS-CoV-2 RNA (RT-PCR) Toxoplasma IgG Ab Toxoplasma IgM Ab Tick-borne Disease Ab 05/25/23 05/25/23 05/25/23 22:06 22:39 Unknown WBC 7.3 RBC 3.32 L Hgb 10.7 L D Hct 31.4 L D MCV 94.6 MCH 32.2 MCHC 34.1 RDW 14.2 Plt Count 361 D MPV 10.8 Immature Gran % (Auto) 2.2 H Neut % (Auto) 39.8 L Lymph % (Auto) 50.6 H Story % (Auto) 6.6 Eos % (Auto) 0.3 Baso % (Auto) 0.5 Lymph # (Auto) 3.7 Story # (Auto) 0.5 Eos # (Auto) 0.0 Baso # (Auto) 0.0 Abs Immat Gran (auto) 0.16 H Absolute Neuts (auto) 2.9 Absolute Nucleated RBC 0.000 Nucleated RBC % (auto) 0.0 Smear Tech's Comments VERIFIED Smear Path Review ESR D-Dimer High Sensitivty Sodium Potassium Chloride Carbon Dioxide Anion Gap BUN Creatinine Estim Creat Clear Calc Estimated GFR POC Glucose Random Glucose Lactic Acid Lactic Acid F/U @ 2Hr Calcium Total Bilirubin Direct Bilirubin AST ALT Alkaline Phosphatase Lactate Dehydrogenase C-Reactive Protein Total Protein Albumin Beta-Hydroxybutyrate TSH Random Cortisol Urine Color Urine Appearance Urine pH Ur Specific [place] Urine Protein Urine Glucose (UA) Urine Ketones Urine Blood Urine Nitrite Ur Leukocyte Esterase Rheumatoid Factor Respiratory Panel Kelley Adenovirus (Rapid PCR) A.phagocytophil DNA PCR NOT DETECTED Babesia microti DNA PCR NOT DETECTED B.pert (TEM-PCR) B.parapertussis DNA PCR Borrelia sp DNA (PCR) NOT DETECTED Borrelia miyamotoi (PCR) NOT DETECTED C. pneumoniae DNA (PCR) Coronavirus OC43 (PCR) Coronavirus HKU1 (PCR) Coronavirus 229E (PCR) COVID-19 ([place]) COVID-19 Clin Com Coronavirus NL63 (PCR) CMV Specimen Source CMV Qnt PCR IU/mL CMV Qnt PCR log IU/mL E.chaffeensis DNA (PCR) NOT DETECTED Hepatitis A IgM Ab Hep Bs Antigen Hep Bs Antibody Hep B Core Total Ab Hepatitis C Ab (EIA) HIV 1&2 Ab/P24 Ag 4thGn Nonreactive Human Metapneumovir PCR Influenza Type A (BRENDA) Influenza A (RT-PCR) Influenza Type B (BRENDA) Influenza B (RT-PCR) Influenza A & B Note M. pneumoniae (PCR) Parainfluenza 1 (PCR) Parainfluenza 2 (PCR) Parainfluenza 3 (PCR) Parainfluenza 4 (PCR) RSV (PCR) Entero/Rhino (PCR) SARS-CoV-2 RNA (RT-PCR) Toxoplasma IgG Ab Toxoplasma IgM Ab Tick-borne Disease Ab SEE NOTE 05/25/23 05/25/23 05/25/23 Unknown Unknown Unknown WBC RBC Hgb Hct MCV MCH MCHC RDW Plt Count MPV Immature Gran % (Auto) Neut % (Auto) Lymph % (Auto) Story % (Auto) Eos % (Auto) Baso % (Auto) Lymph # (Auto) Story # (Auto) Eos # (Auto) Baso # (Auto) Abs Immat Gran (auto) Absolute Neuts (auto) Absolute Nucleated RBC Nucleated RBC % (auto) Smear Tech's Comments Smear Path Review ESR D-Dimer High Sensitivty Sodium 134 L Potassium 3.7 Chloride 100 Carbon Dioxide 22 Anion Gap 16 BUN 10 Creatinine 0.67 Estim Creat Clear Calc 95.4 Estimated GFR > 60 POC Glucose Random Glucose 141 H Lactic Acid Lactic Acid F/U @ 2Hr Calcium 8.1 L D Total Bilirubin 0.4 Direct Bilirubin AST 118 H ALT 48 H Alkaline Phosphatase 164 H Lactate Dehydrogenase C-Reactive Protein Total Protein 6.1 L Albumin 2.7 L Beta-Hydroxybutyrate TSH Random Cortisol Urine Color Urine Appearance Urine pH Ur Specific [place] Urine Protein Urine Glucose (UA) Urine Ketones Urine Blood Urine Nitrite Ur Leukocyte Esterase Rheumatoid Factor Respiratory Panel Kelley Adenovirus (Rapid PCR) A.phagocytophil DNA PCR Babesia microti DNA PCR B.pert (TEM-PCR) B.parapertussis DNA PCR Borrelia sp DNA (PCR) Borrelia miyamotoi (PCR) C. pneumoniae DNA (PCR) Coronavirus OC43 (PCR) Coronavirus HKU1 (PCR) Coronavirus 229E (PCR) COVID-19 ([place]) Negative COVID-19 Clin Com See Note Coronavirus NL63 (PCR) CMV Specimen Source CMV Qnt PCR IU/mL CMV Qnt PCR log IU/mL E.chaffeensis DNA (PCR) Hepatitis A IgM Ab Hep Bs Antigen Hep Bs Antibody Hep B Core Total Ab Hepatitis C Ab (EIA) HIV 1&2 Ab/P24 Ag 4thGn Human Metapneumovir PCR Influenza Type A (BRENDA) Negative Influenza A (RT-PCR) Influenza Type B (BRENDA) Negative Influenza B (RT-PCR) Influenza A & B Note See Note M. pneumoniae (PCR) Parainfluenza 1 (PCR) Parainfluenza 2 (PCR) Parainfluenza 3 (PCR) Parainfluenza 4 (PCR) RSV (PCR) Entero/Rhino (PCR) SARS-CoV-2 RNA (RT-PCR) Toxoplasma IgG Ab Toxoplasma IgM Ab Tick-borne Disease Ab 05/26/23 05/26/23 05/26/23 01:07 02:21 03:27 WBC 7.2 RBC 3.14 L Hgb 9.9 L Hct 29.1 L MCV 92.7 MCH 31.5 MCHC 34.0 RDW 14.1 Plt Count 307 MPV 10.1 Immature Gran % (Auto) 2.2 H Neut % (Auto) 33.0 L Lymph % (Auto) 55.6 H Story % (Auto) 8.2 Eos % (Auto) 0.3 Baso % (Auto) 0.7 Lymph # (Auto) 4.0 Story # (Auto) 0.6 Eos # (Auto) 0.0 Baso # (Auto) 0.1 Abs Immat Gran (auto) 0.16 H Absolute Neuts (auto) 2.4 Absolute Nucleated RBC 0.000 Nucleated RBC % (auto) 0.0 Smear Tech's Comments Smear Path Review SEE NOTE ESR D-Dimer High Sensitivty Sodium Potassium Chloride Carbon Dioxide Anion Gap BUN Creatinine Estim Creat Clear Calc Estimated GFR POC Glucose Random Glucose Lactic Acid Lactic Acid F/U @ 2Hr 1.2 Calcium Total Bilirubin Direct Bilirubin AST ALT Alkaline Phosphatase Lactate Dehydrogenase C-Reactive Protein Total Protein Albumin Beta-Hydroxybutyrate TSH Random Cortisol Urine Color Yellow Urine Appearance Clear Urine pH 6.5 Ur Specific [place] 1.025 Urine Protein Negative Urine Glucose (UA) Negative Urine Ketones Negative Urine Blood Negative Urine Nitrite Negative Ur Leukocyte Esterase Negative Rheumatoid Factor Respiratory Panel Kelley Adenovirus (Rapid PCR) A.phagocytophil DNA PCR Babesia microti DNA PCR B.pert (TEM-PCR) B.parapertussis DNA PCR Borrelia sp DNA (PCR) Borrelia miyamotoi (PCR) C. pneumoniae DNA (PCR) Coronavirus OC43 (PCR) Coronavirus HKU1 (PCR) Coronavirus 229E (PCR) COVID-19 ([facility]) COVID-19 Clin Com Coronavirus NL63 (PCR) CMV Specimen Source CMV Qnt PCR IU/mL CMV Qnt PCR log IU/mL E.chaffeensis DNA (PCR) Hepatitis A IgM Ab Hep Bs Antigen Hep Bs Antibody Hep B Core Total Ab Hepatitis C Ab (EIA) HIV 1&2 Ab/P24 Ag 4thGn Human Metapneumovir PCR Influenza Type A ([facility]) Influenza A (RT-PCR) Influenza Type B ([facility]) Influenza B (RT-PCR) Influenza A & B Note M. pneumoniae (PCR) Parainfluenza 1 (PCR) Parainfluenza 2 (PCR) Parainfluenza 3 (PCR) Parainfluenza 4 (PCR) RSV (PCR) Entero/Rhino (PCR) SARS-CoV-2 RNA (RT-PCR) Toxoplasma IgG Ab Toxoplasma IgM Ab Tick-borne Disease Ab 05/26/23 05/26/23 05/26/23 03:27 03:27 03:27 WBC RBC Hgb Hct MCV MCH MCHC RDW Plt Count MPV Immature Gran % (Auto) Neut % (Auto) Lymph % (Auto) Story % (Auto) Eos % (Auto) Baso % (Auto) Lymph # (Auto) Story # (Auto) Eos # (Auto) Baso # (Auto) Abs Immat Gran (auto) Absolute Neuts (auto) Absolute Nucleated RBC Nucleated RBC % (auto) Smear Tech's Comments Smear Path Review ESR 25 H D-Dimer High Sensitivty Sodium 139 Potassium 3.7 Chloride 107 Carbon Dioxide 22 Anion Gap 14 BUN 8 L Creatinine 0.62 Estim Creat Clear Calc 103.1 Estimated GFR > 60 POC Glucose Random Glucose 107 Lactic Acid Lactic Acid F/U @ 2Hr Calcium 7.7 L Total Bilirubin Direct Bilirubin AST ALT Alkaline Phosphatase Lactate Dehydrogenase 831 H C-Reactive Protein 3.47 H Total Protein Albumin Beta-Hydroxybutyrate TSH Random Cortisol Urine Color Urine Appearance Urine pH Ur Specific [place] Urine Protein Urine Glucose (UA) Urine Ketones Urine Blood Urine Nitrite Ur Leukocyte Esterase Rheumatoid Factor Respiratory Panel Kelley Adenovirus (Rapid PCR) A.phagocytophil DNA PCR Babesia microti DNA PCR B.pert (TEM-PCR) B.parapertussis DNA PCR Borrelia sp DNA (PCR) Borrelia miyamotoi (PCR) C. pneumoniae DNA (PCR) Coronavirus OC43 (PCR) Coronavirus HKU1 (PCR) Coronavirus 229E (PCR) COVID-19 ([facility]) COVID-19 Clin Com Coronavirus NL63 (PCR) CMV Specimen Source CMV Qnt PCR IU/mL CMV Qnt PCR log IU/mL E.chaffeensis DNA (PCR) Hepatitis A IgM Ab Hep Bs Antigen Hep Bs Antibody Hep B Core Total Ab Hepatitis C Ab (EIA) HIV 1&2 Ab/P24 Ag 4thGn Human Metapneumovir PCR Influenza Type A ([facility]) Influenza A (RT-PCR) Influenza Type B ([facility]DA) Influenza B (RT-PCR) Influenza A & B Note M. pneumoniae (PCR) Parainfluenza 1 (PCR) Parainfluenza 2 (PCR) Parainfluenza 3 (PCR) Parainfluenza 4 (PCR) RSV (PCR) Entero/Rhino (PCR) SARS-CoV-2 RNA (RT-PCR) Toxoplasma IgG Ab Toxoplasma IgM Ab Tick-borne Disease Ab 05/26/23 05/26/23 05/26/23 03:27 07:25 12:23 WBC RBC Hgb Hct MCV MCH MCHC RDW Plt Count MPV Immature Gran % (Auto) Neut % (Auto) Lymph % (Auto) Story % (Auto) Eos % (Auto) Baso % (Auto) Lymph # (Auto) Story # (Auto) Eos # (Auto) Baso # (Auto) Abs Immat Gran (auto) Absolute Neuts (auto) Absolute Nucleated RBC Nucleated RBC % (auto) Smear Tech's Comments Smear Path Review ESR D-Dimer High Sensitivty Sodium Potassium Chloride Carbon Dioxide Anion Gap BUN Creatinine Estim Creat Clear Calc Estimated GFR POC Glucose 91 83 Random Glucose Lactic Acid Lactic Acid F/U @ 2Hr Calcium Total Bilirubin Direct Bilirubin AST ALT Alkaline Phosphatase Lactate Dehydrogenase C-Reactive Protein Total Protein Albumin Beta-Hydroxybutyrate TSH Random Cortisol Urine Color Urine Appearance Urine pH Ur Specific [place] Urine Protein Urine Glucose (UA) Urine Ketones Urine Blood Urine Nitrite Ur Leukocyte Esterase Rheumatoid Factor Respiratory Panel Kelley Adenovirus (Rapid PCR) A.phagocytophil DNA PCR Babesia microti DNA PCR B.pert (TEM-PCR) B.parapertussis DNA PCR Borrelia sp DNA (PCR) Borrelia miyamotoi (PCR) C. pneumoniae DNA (PCR) Coronavirus OC43 (PCR) Coronavirus HKU1 (PCR) Coronavirus 229E (PCR) COVID-19 ([facility]) COVID-19 Clin Com Coronavirus NL63 (PCR) CMV Specimen Source CMV Qnt PCR IU/mL CMV Qnt PCR log IU/mL E.chaffeensis DNA (PCR) Hepatitis A IgM Ab Nonreactive Hep Bs Antigen Negative Hep Bs Antibody NONREACTIVE Hep B Core Total Ab Nonreactive Hepatitis C Ab (EIA) Nonreactive HIV 1&2 Ab/P24 Ag 4thGn Human Metapneumovir PCR Influenza Type A ([facility]ENDA) Influenza A (RT-PCR) Influenza Type B ([facility]DA) Influenza B (RT-PCR) Influenza A & B Note M. pneumoniae (PCR) Parainfluenza 1 (PCR) Parainfluenza 2 (PCR) Parainfluenza 3 (PCR) Parainfluenza 4 (PCR) RSV (PCR) Entero/Rhino (PCR) SARS-CoV-2 RNA (RT-PCR) Toxoplasma IgG Ab Toxoplasma IgM Ab Tick-borne Disease Ab 05/26/23 05/26/23 05/26/23 15:33 15:33 15:33 WBC RBC Hgb Hct MCV MCH MCHC RDW Plt Count MPV Immature Gran % (Auto) Neut % (Auto) Lymph % (Auto) Story % (Auto) Eos % (Auto) Baso % (Auto) Lymph # (Auto) Story # (Auto) Eos # (Auto) Baso # (Auto) Abs Immat Gran (auto) Absolute Neuts (auto) Absolute Nucleated RBC Nucleated RBC % (auto) Smear Tech's Comments Smear Path Review ESR D-Dimer High Sensitivty Sodium Potassium Chloride Carbon Dioxide Anion Gap BUN Creatinine Estim Creat Clear Calc Estimated GFR POC Glucose Random Glucose Lactic Acid Lactic Acid F/U @ 2Hr Calcium Total Bilirubin Direct Bilirubin AST ALT Alkaline Phosphatase Lactate Dehydrogenase C-Reactive Protein Total Protein Albumin Beta-Hydroxybutyrate TSH 1.12 Random Cortisol Urine Color Urine Appearance Urine pH Ur Specific [place] Urine Protein Urine Glucose (UA) Urine Ketones Urine Blood Urine Nitrite Ur Leukocyte Esterase Rheumatoid Factor < 13.0 Respiratory Panel Kelley Adenovirus (Rapid PCR) A.phagocytophil DNA PCR Babesia microti DNA PCR B.pert (TEM-PCR) B.parapertussis DNA PCR Borrelia sp DNA (PCR) Borrelia miyamotoi (PCR) C. pneumoniae DNA (PCR) Coronavirus OC43 (PCR) Coronavirus HKU1 (PCR) Coronavirus 229E (PCR) COVID-19 ([place]) COVID-19 Clin Com Coronavirus NL63 (PCR) CMV Specimen Source CMV Qnt PCR IU/mL CMV Qnt PCR log IU/mL E.chaffeensis DNA (PCR) Hepatitis A IgM Ab Hep Bs Antigen Hep Bs Antibody Hep B Core Total Ab Hepatitis C Ab (EIA) HIV 1&2 Ab/P24 Ag 4thGn Human Metapneumovir PCR Influenza Type A ([facility]ENDA) Influenza A (RT-PCR) Influenza Type B (BRENDA) Influenza B (RT-PCR) Influenza A & B Note M. pneumoniae (PCR) Parainfluenza 1 (PCR) Parainfluenza 2 (PCR) Parainfluenza 3 (PCR) Parainfluenza 4 (PCR) RSV (PCR) Entero/Rhino (PCR) SARS-CoV-2 RNA (RT-PCR) Toxoplasma IgG Ab <7.20 Toxoplasma IgM Ab <8.00 Tick-borne Disease Ab 05/26/23 05/26/23 05/26/23 15:33 15:44 16:10 WBC RBC Hgb Hct MCV MCH MCHC RDW Plt Count MPV Immature Gran % (Auto) Neut % (Auto) Lymph % (Auto) Story % (Auto) Eos % (Auto) Baso % (Auto) Lymph # (Auto) Story # (Auto) Eos # (Auto) Baso # (Auto) Abs Immat Gran (auto) Absolute Neuts (auto) Absolute Nucleated RBC Nucleated RBC % (auto) Smear Tech's Comments Smear Path Review ESR D-Dimer High Sensitivty Sodium Potassium Chloride Carbon Dioxide Anion Gap BUN Creatinine Estim Creat Clear Calc Estimated GFR POC Glucose 125 H Random Glucose Lactic Acid Lactic Acid F/U @ 2Hr Calcium Total Bilirubin Direct Bilirubin AST ALT Alkaline Phosphatase Lactate Dehydrogenase C-Reactive Protein Total Protein Albumin Beta-Hydroxybutyrate TSH Random Cortisol Urine Color Urine Appearance Urine pH Ur Specific [place] Urine Protein Urine Glucose (UA) Urine Ketones Urine Blood Urine Nitrite Ur Leukocyte Esterase Rheumatoid Factor Respiratory Panel Kelley See Note Adenovirus (Rapid PCR) Not Detected A.phagocytophil DNA PCR Babesia microti DNA PCR B.pert (TEM-PCR) Not Detected B.parapertussis DNA PCR Not Detected Borrelia sp DNA (PCR) Borrelia miyamotoi (PCR) C. pneumoniae DNA (PCR) Not Detected Coronavirus OC43 (PCR) Not Detected Coronavirus HKU1 (PCR) Not Detected Coronavirus 229E (PCR) Not Detected COVID-19 ([facility]) COVID-19 Clin Com Coronavirus NL63 (PCR) Not Detected CMV Specimen Source BLOOD CMV Qnt PCR IU/mL 57142 H CMV Qnt PCR log IU/mL 4.59 H E.chaffeensis DNA (PCR) Hepatitis A IgM Ab Hep Bs Antigen Hep Bs Antibody Hep B Core Total Ab Hepatitis C Ab (EIA) HIV 1&2 Ab/P24 Ag 4thGn Human Metapneumovir PCR Not Detected Influenza Type A (BRENDA) Influenza A (RT-PCR) Not Detected Influenza Type B (BRENDA) Influenza B (RT-PCR) Not Detected Influenza A & B Note M. pneumoniae (PCR) Not Detected Parainfluenza 1 (PCR) Not Detected Parainfluenza 2 (PCR) Not Detected Parainfluenza 3 (PCR) Not Detected Parainfluenza 4 (PCR) Not Detected RSV (PCR) Not Detected Entero/Rhino (PCR) Not Detected SARS-CoV-2 RNA (RT-PCR) Not Detected Toxoplasma IgG Ab Toxoplasma IgM Ab Tick-borne Disease Ab 05/26/23 05/27/23 05/27/23 20:52 06:55 06:55 WBC 5.7 RBC 3.08 L Hgb 9.8 L Hct 29.1 L MCV 94.5 MCH 31.8 MCHC 33.7 RDW 14.6 Plt Count 333 MPV 10.7 Immature Gran % (Auto) 1.9 H Neut % (Auto) 35.4 L Lymph % (Auto) 52.7 H Story % (Auto) 8.8 Eos % (Auto) 0.5 Baso % (Auto) 0.7 Lymph # (Auto) 3.0 Story # (Auto) 0.5 Eos # (Auto) 0.0 Baso # (Auto) 0.0 Abs Immat Gran (auto) 0.11 H Absolute Neuts (auto) 2.0 Absolute Nucleated RBC 0.000 Nucleated RBC % (auto) 0.0 Smear Tech's Comments VERIFIED Smear Path Review ESR D-Dimer High Sensitivty Sodium Potassium Chloride Carbon Dioxide Anion Gap BUN Creatinine Estim Creat Clear Calc Estimated GFR POC Glucose 106 Random Glucose Lactic Acid Lactic Acid F/U @ 2Hr Calcium Total Bilirubin Direct Bilirubin AST ALT Alkaline Phosphatase Lactate Dehydrogenase C-Reactive Protein Total Protein Albumin Beta-Hydroxybutyrate TSH Random Cortisol 14.2 Urine Color Urine Appearance Urine pH Ur Specific [place] Urine Protein Urine Glucose (UA) Urine Ketones Urine Blood Urine Nitrite Ur Leukocyte Esterase Rheumatoid Factor Respiratory Panel Kelley Adenovirus (Rapid PCR) A.phagocytophil DNA PCR Babesia microti DNA PCR B.pert (TEM-PCR) B.parapertussis DNA PCR Borrelia sp DNA (PCR) Borrelia miyamotoi (PCR) C. pneumoniae DNA (PCR) Coronavirus OC43 (PCR) Coronavirus HKU1 (PCR) Coronavirus 229E (PCR) COVID-19 ([place]) COVID-19 Clin Com Coronavirus NL63 (PCR) CMV Specimen Source CMV Qnt PCR IU/mL CMV Qnt PCR log IU/mL E.chaffeensis DNA (PCR) Hepatitis A IgM Ab Hep Bs Antigen Hep Bs Antibody Hep B Core Total Ab Hepatitis C Ab (EIA) HIV 1&2 Ab/P24 Ag 4thGn Human Metapneumovir PCR Influenza Type A ([facility]ENDA) Influenza A (RT-PCR) Influenza Type B ([facility]ENDA) Influenza B (RT-PCR) Influenza A & B Note M. pneumoniae (PCR) Parainfluenza 1 (PCR) Parainfluenza 2 (PCR) Parainfluenza 3 (PCR) Parainfluenza 4 (PCR) RSV (PCR) Entero/Rhino (PCR) SARS-CoV-2 RNA (RT-PCR) Toxoplasma IgG Ab Toxoplasma IgM Ab Tick-borne Disease Ab 05/27/23 05/27/23 05/27/23 06:55 07:05 10:55 WBC RBC Hgb Hct MCV MCH MCHC RDW Plt Count MPV Immature Gran % (Auto) Neut % (Auto) Lymph % (Auto) Story % (Auto) Eos % (Auto) Baso % (Auto) Lymph # (Auto) Story # (Auto) Eos # (Auto) Baso # (Auto) Abs Immat Gran (auto) Absolute Neuts (auto) Absolute Nucleated RBC Nucleated RBC % (auto) Smear Tech's Comments Smear Path Review ESR D-Dimer High Sensitivty Sodium 138 Potassium 3.8 Chloride 105 Carbon Dioxide 24 Anion Gap 13 BUN 8 L Creatinine 0.68 Estim Creat Clear Calc 93.9 Estimated GFR > 60 POC Glucose 147 H 130 H Random Glucose 154 H Lactic Acid Lactic Acid F/U @ 2Hr Calcium 8.1 L Total Bilirubin 0.4 Direct Bilirubin 0.2 AST 78 H ALT 32 H Alkaline Phosphatase 166 H Lactate Dehydrogenase C-Reactive Protein Total Protein 5.5 L Albumin 2.4 L Beta-Hydroxybutyrate TSH Random Cortisol Urine Color Urine Appearance Urine pH Ur Specific [place] Urine Protein Urine Glucose (UA) Urine Ketones Urine Blood Urine Nitrite Ur Leukocyte Esterase Rheumatoid Factor Respiratory Panel Kelley Adenovirus (Rapid PCR) A.phagocytophil DNA PCR Babesia microti DNA PCR B.pert (TEM-PCR) B.parapertussis DNA PCR Borrelia sp DNA (PCR) Borrelia miyamotoi (PCR) C. pneumoniae DNA (PCR) Coronavirus OC43 (PCR) Coronavirus HKU1 (PCR) Coronavirus 229E (PCR) COVID-19 ([place]) COVID-19 Clin Com Coronavirus NL63 (PCR) CMV Specimen Source CMV Qnt PCR IU/mL CMV Qnt PCR log IU/mL E.chaffeensis DNA (PCR) Hepatitis A IgM Ab Hep Bs Antigen Hep Bs Antibody Hep B Core Total Ab Hepatitis C Ab (EIA) HIV 1&2 Ab/P24 Ag 4thGn Human Metapneumovir PCR Influenza Type A ([facility]ENDA) Influenza A (RT-PCR) Influenza Type B ([facility]ENDA) Influenza B (RT-PCR) Influenza A & B Note M. pneumoniae (PCR) Parainfluenza 1 (PCR) Parainfluenza 2 (PCR) Parainfluenza 3 (PCR) Parainfluenza 4 (PCR) RSV (PCR) Entero/Rhino (PCR) SARS-CoV-2 RNA (RT-PCR) Toxoplasma IgG Ab Toxoplasma IgM Ab Tick-borne Disease Ab 05/27/23 05/27/23 05/28/23 16:01 19:58 03:49 WBC RBC Hgb Hct MCV MCH MCHC RDW Plt Count MPV Immature Gran % (Auto) Neut % (Auto) Lymph % (Auto) Story % (Auto) Eos % (Auto) Baso % (Auto) Lymph # (Auto) Story # (Auto) Eos # (Auto) Baso # (Auto) Abs Immat Gran (auto) Absolute Neuts (auto) Absolute Nucleated RBC Nucleated RBC % (auto) Smear Tech's Comments Smear Path Review ESR D-Dimer High Sensitivty Sodium Potassium Chloride Carbon Dioxide Anion Gap BUN Creatinine Estim Creat Clear Calc Estimated GFR POC Glucose 105 167 H 104 Random Glucose Lactic Acid Lactic Acid F/U @ 2Hr Calcium Total Bilirubin Direct Bilirubin AST ALT Alkaline Phosphatase Lactate Dehydrogenase C-Reactive Protein Total Protein Albumin Beta-Hydroxybutyrate TSH Random Cortisol Urine Color Urine Appearance Urine pH Ur Specific [place] Urine Protein Urine Glucose (UA) Urine Ketones Urine Blood Urine Nitrite Ur Leukocyte Esterase Rheumatoid Factor Respiratory Panel Kelley Adenovirus (Rapid PCR) A.phagocytophil DNA PCR Babesia microti DNA PCR B.pert (TEM-PCR) B.parapertussis DNA PCR Borrelia sp DNA (PCR) Borrelia miyamotoi (PCR) C. pneumoniae DNA (PCR) Coronavirus OC43 (PCR) Coronavirus HKU1 (PCR) Coronavirus 229E (PCR) COVID-19 ([place]) COVID-19 Clin Com Coronavirus NL63 (PCR) CMV Specimen Source CMV Qnt PCR IU/mL CMV Qnt PCR log IU/mL E.chaffeensis DNA (PCR) Hepatitis A IgM Ab Hep Bs Antigen Hep Bs Antibody Hep B Core Total Ab Hepatitis C Ab (EIA) HIV 1&2 Ab/P24 Ag 4thGn Human Metapneumovir PCR Influenza Type A ([facility]DA) Influenza A (RT-PCR) Influenza Type B ([facility]DA) Influenza B (RT-PCR) Influenza A & B Note M. pneumoniae (PCR) Parainfluenza 1 (PCR) Parainfluenza 2 (PCR) Parainfluenza 3 (PCR) Parainfluenza 4 (PCR) RSV (PCR) Entero/Rhino (PCR) SARS-CoV-2 RNA (RT-PCR) Toxoplasma IgG Ab Toxoplasma IgM Ab Tick-borne Disease Ab 05/28/23 05/28/23 05/28/23 07:07 07:07 07:10 WBC 6.9 RBC 3.03 L Hgb 9.7 L Hct 29.2 L MCV 96.4 MCH 32.0 MCHC 33.2 RDW 14.6 Plt Count 339 MPV 10.7 Immature Gran % (Auto) 2.6 H Neut % (Auto) 37.1 L Lymph % (Auto) 48.6 H Story % (Auto) 10.0 Eos % (Auto) 1.0 Baso % (Auto) 0.7 Lymph # (Auto) 3.4 Story # (Auto) 0.7 Eos # (Auto) 0.1 Baso # (Auto) 0.1 Abs Immat Gran (auto) 0.18 H Absolute Neuts (auto) 2.6 Absolute Nucleated RBC 0.000 Nucleated RBC % (auto) 0.0 Smear Tech's Comments VERIFIED Smear Path Review ESR D-Dimer High Sensitivty Sodium 139 Potassium 3.8 Chloride 106 Carbon Dioxide 24 Anion Gap 13 BUN 10 Creatinine 0.62 Estim Creat Clear Calc 103.1 Estimated GFR > 60 POC Glucose 117 H Random Glucose 117 H Lactic Acid Lactic Acid F/U @ 2Hr Calcium 8.0 L Total Bilirubin 0.3 Direct Bilirubin 0.2 AST 58 H ALT 27 Alkaline Phosphatase 171 H Lactate Dehydrogenase C-Reactive Protein Total Protein 5.3 L Albumin 2.3 L Beta-Hydroxybutyrate TSH Random Cortisol Urine Color Urine Appearance Urine pH Ur Specific [place] Urine Protein Urine Glucose (UA) Urine Ketones Urine Blood Urine Nitrite Ur Leukocyte Esterase Rheumatoid Factor Respiratory Panel Kelley Adenovirus (Rapid PCR) A.phagocytophil DNA PCR Babesia microti DNA PCR B.pert (TEM-PCR) B.parapertussis DNA PCR Borrelia sp DNA (PCR) Borrelia miyamotoi (PCR) C. pneumoniae DNA (PCR) Coronavirus OC43 (PCR) Coronavirus HKU1 (PCR) Coronavirus 229E (PCR) COVID-19 ([place]) COVID-19 Clin Com Coronavirus NL63 (PCR) CMV Specimen Source CMV Qnt PCR IU/mL CMV Qnt PCR log IU/mL E.chaffeensis DNA (PCR) Hepatitis A IgM Ab Hep Bs Antigen Hep Bs Antibody Hep B Core Total Ab Hepatitis C Ab (EIA) HIV 1&2 Ab/P24 Ag 4thGn Human Metapneumovir PCR Influenza Type A ([facility]) Influenza A (RT-PCR) Influenza Type B ([facility]) Influenza B (RT-PCR) Influenza A & B Note M. pneumoniae (PCR) Parainfluenza 1 (PCR) Parainfluenza 2 (PCR) Parainfluenza 3 (PCR) Parainfluenza 4 (PCR) RSV (PCR) Entero/Rhino (PCR) SARS-CoV-2 RNA (RT-PCR) Toxoplasma IgG Ab Toxoplasma IgM Ab Tick-borne Disease Ab 05/28/23 10:58 WBC RBC Hgb Hct MCV MCH MCHC RDW Plt Count MPV Immature Gran % (Auto) Neut % (Auto) Lymph % (Auto) Story % (Auto) Eos % (Auto) Baso % (Auto) Lymph # (Auto) Story # (Auto) Eos # (Auto) Baso # (Auto) Abs Immat Gran (auto) Absolute Neuts (auto) Absolute Nucleated RBC Nucleated RBC % (auto) Smear Tech's Comments Smear Path Review ESR D-Dimer High Sensitivty Sodium Potassium Chloride Carbon Dioxide Anion Gap BUN Creatinine Estim Creat Clear Calc Estimated GFR POC Glucose 113 Random Glucose Lactic Acid Lactic Acid F/U @ 2Hr Calcium Total Bilirubin Direct Bilirubin AST ALT Alkaline Phosphatase Lactate Dehydrogenase C-Reactive Protein Total Protein Albumin Beta-Hydroxybutyrate TSH Random Cortisol Urine Color Urine Appearance Urine pH Ur Specific [place] Urine Protein Urine Glucose (UA) Urine Ketones Urine Blood Urine Nitrite Ur Leukocyte Esterase Rheumatoid Factor Respiratory Panel Kelley Adenovirus (Rapid PCR) A.phagocytophil DNA PCR Babesia microti DNA PCR B.pert (TEM-PCR) B.parapertussis DNA PCR Borrelia sp DNA (PCR) Borrelia miyamotoi (PCR) C. pneumoniae DNA (PCR) Coronavirus OC43 (PCR) Coronavirus HKU1 (PCR) Coronavirus 229E (PCR) COVID-19 ([place]) COVID-19 Clin Com Coronavirus NL63 (PCR) CMV Specimen Source CMV Qnt PCR IU/mL CMV Qnt PCR log IU/mL E.chaffeensis DNA (PCR) Hepatitis A IgM Ab Hep Bs Antigen Hep Bs Antibody Hep B Core Total Ab Hepatitis C Ab (EIA) HIV 1&2 Ab/P24 Ag 4thGn Human Metapneumovir PCR Influenza Type A ([facility]EN[facility]) Influenza A (RT-PCR) Influenza Type B ([facility]ENDA) Influenza B (RT-PCR) Influenza A & B Note M. pneumoniae (PCR) Parainfluenza 1 (PCR) Parainfluenza 2 (PCR) Parainfluenza 3 (PCR) Parainfluenza 4 (PCR) RSV (PCR) Entero/Rhino (PCR) SARS-CoV-2 RNA (RT-PCR) Toxoplasma IgG Ab Toxoplasma IgM Ab Tick-borne Disease Ab Airway Mallampati Class: II TM Dist: >3cm Neck ROM: Full Loose/Missing/Broken Teeth: No Assessment and Plan Assessment Anesthesia Assessment: Anesthesia Plan Discussed and Chart Reviewed Final Anesthetic Review Family History of Problems with Anesthesia: No History of Problems with Anesthesia: No NPO: Yes ASA Class: III Final Preanesthetic Review: No Changes in Pt Med Stat, Meds/Allgs Chart Reviewed, Consent Obtained/Reviewed and Anes Risks/Benef Reviewed Patient Risk: Intermediate Procedure Risk: Low Anesthetic Plan Anesthetic Plan: MAC: Disposition: Standard PACU
[2023-05-28] MEDS: Sodium Chloride 0.65 % Nasal 44 ML SPRBTL 1 SPRAY NOSTRIL-B (11:35)
[2023-05-28] MEDS: Fluconazole 100 MG TABLET 200 MG PO (11:35)
[2023-05-28] MEDS: Ferrous Sulfate 324 MG TABLET.DR PO (11:36)
[2023-05-28] MEDS: Cholecalciferol (Vitamin D3) 25 MCG TABLET PO (11:36)
[2023-05-28] MEDS: PARoxetine HCL 20 MG TABLET PO (11:39)
[2023-05-28] MEDS: Gabapentin 600 MG TABLET PO ×3 (11:39→22:14)
[2023-05-28] MEDS: Ascorbic Acid 500 MG TABLET PO (11:39)
[2023-05-28] MEDS: Atovaquone 750 MG/5 ML ORAL.SUSP 1500 MG PO (11:39)
[2023-05-28] MEDS: Loratadine 10 MG TABLET PO (11:40)
[2023-05-28] MEDS: azaTHIOprine 50 MG TABLET 100 MG PO (11:41)
[2023-05-28] MEDS: 0.9 % Sodium Chloride Flush 3 ML SYRINGE IVFLUSH ×3 (11:42→22:15)
[2023-05-28] MEDS: Enoxaparin Sodium 40 MG/0.4 ML SYRINGE SUBCUT (11:43)
[2023-05-28] MEDS: Insulin Glargine,Hum.rec.anlog 100 UNIT/ML 10 ML VIAL 8 UNIT SUBCUT (11:46)
--- NOTE | 2023-05-28 11:52 | OP_ITS ---
DATE OF SERVICE: 05/28/2023 SURGEON: Satinder Correa MD INDICATIONS: Abnormal CT scan, CMV infection, and immunosuppression. PREOPERATIVE DIAGNOSIS: POSTOPERATIVE DIAGNOSIS: PROCEDURE PERFORMED: Flexible sigmoidoscopy to 40 cm with biopsy and viral culture. ESTIMATED BLOOD LOSS: COMPLICATIONS: ANESTHESIA: Monitored anesthesia care. ASSISTANTS: SPECIMENS: DESCRIPTION OF PROCEDURE: A history and physical performed. The risks and benefits of the procedure were explained to the patient. Informed consent was obtained. The patient was placed in the left lateral decubitus position. A digital rectal exam was performed and was found to be normal. The Olympus pediatric video colonoscope was introduced into the rectum and advanced to 40 cm. Examination was performed. The scope was removed. She tolerated the procedure well and was returned to the recovery area in stable condition. FINDINGS: The scope was easily advanced to 40 cm, at which point, formed stool was encountered and no further advancement was attempted. The mucosa showed ulceration in the rectosigmoid, unchanged from her previous examination in January of this year with surrounding inflammatory change in the rectosigmoid. The ulceration measured 0 to 2 cm by approximately 4 to 5 cm in multiple linear ulcers involving the rectosigmoid. Beyond approximately 20 cm, mucosa appeared normal. Biopsies were obtained from the abnormal tissue and tissue culture was sent for CMV. Retroflexed examination showed proctitis extending to the level of the rectum consistent with her previous examination. IMPRESSION: Crohn's colitis. RECOMMENDATION: 1. Follow up the biopsy results. 2. Continue present regimen. MD MARICARMEN Adkins/ESDRAS / [id number]
--- NOTE | 2023-05-28 13:43 | HO.PM.IMPN ---
Subjective Subjective Date of Service: 05/28/23 Interval History: seen and examined this afternoon after sigmoidoscopy follow up for fever, CMV+ still reporting feeling feverish intermittently, reported low grade fever overnight Review of Systems Review of Systems: Yes all other systems are reviewed and are negative Constitutional Constitutional: Denies chills, Reports fever(s) and Reports headache(s) ENT Ears, Nose, Mouth, and Throat: Reports headache(s) Cardiovascular Cardiovascular: Denies dyspnea Respiratory Respiratory: Reports cough and Denies dyspnea Gastrointestinal Gastrointestinal: Denies abdominal pain Neurologic Neurologic: Reports headache(s) Physical Exam Vital Signs: Vital Signs: Last Vital Signs Temp 97 F 05/28/23 09:35 Pulse 91 05/28/23 09:35 Resp 20 05/28/23 09:35 BP 104/75 05/28/23 09:35 Pulse Ox 100 05/28/23 09:35 O2 Del Method Room Air 05/28/23 09:35 BMI result Body Mass Index 26.0 Const: General: comfortable, no acute distress, alert and awake Nutritional Appearance: average body habitus Orientation/consciousness: patient oriented x3 Resp: Effort & Inspection: normal respiratory effort, able to speak in complete sentences, no respiratory distress and no use of accessory muscles Cardio: Rate: regular rate Heart sounds: S1 normal heart sound present and S2 normal heart sound present Neuro: General: patient oriented x3, moves all extremities and CN's II-XI intact bilaterally Extrem: General: Yes no pedal edema Objective Data Active Medications Acetaminophen (Acetaminophen 325 Mg Tablet) 650 mg PO Q6H PRN PRN Reason: Pain, Mild (Pain Scale 1-3) Last Admin: 05/28/23 03:48 Dose: 650 mg Documented By: AMILCAR Acetaminophen/Butalbital/Caffeine (Butalb/Acetamin/Caff 50/325/40 Tablet) 1 tab PO Q4H PRN PRN Reason: Migraine Headache Last Admin: 05/28/23 05:36 Dose: 1 tab Documented By: AMILCAR Ascorbic Acid (Ascorbic Acid 500 Mg Tablet) 500 mg PO DAILY [facility] Last Admin: 05/28/23 11:39 Dose: 500 mg Documented By: SLAVA Atovaquone (Atovaquone 750 Mg/5 Ml Oral.Susp) 1,500 mg PO DAILY [facility] Last Admin: 05/28/23 11:39 Dose: 1,500 mg Documented By: SLAVA Azathioprine (Azathioprine 50 Mg Tablet) 100 mg PO DAILY [facility] Last Admin: 05/28/23 11:41 Dose: 100 mg Documented By: SLAVA Azithromycin (Azithromycin 500 Mg Tablet) 500 mg PO Q24H [facility] Last Admin: 05/27/23 16:18 Dose: 500 mg Documented By: ZULAY Bisacodyl (Bisacodyl 10 Mg Supp.Rect) 10 mg MN DAILY PRN PRN Reason: Constipation Dextrose (Dextrose 50 % 25 Gm/50 Ml Syringe) 25 gm IVPUSH Q15M PRN; Protocol PRN Reason: per Hypoglycemia Standing Ord. Doxycycline Monohydrate (Doxycycline Monohydrate 100 Mg Capsule) 100 mg PO Q12H [facility] Last Admin: 05/28/23 05:25 Dose: 100 mg Documented By: AMILCAR Enoxaparin Sodium (Enoxaparin Sodium 40 Mg/0.4 Ml Syringe) 40 mg SUBCUT Q24H [facility] Last Admin: 05/28/23 11:43 Dose: 40 mg Documented By: SLAVA Ferrous Sulfate (Ferrous Sulfate 324 Mg Tablet.) 324 mg PO DAILY [facility] Last Admin: 05/28/23 11:36 Dose: 324 mg Documented By: SLAVA Fluconazole (Fluconazole 100 Mg Tablet) 200 mg PO DAILY [facility] Last Admin: 05/28/23 11:35 Dose: 200 mg Documented By: SLAVA Gabapentin (Gabapentin 600 Mg Tablet) 600 mg PO TID [facility] Last Admin: 05/28/23 11:39 Dose: 600 mg Documented By: SLAVA Glucose (Glucose Gel 15 Gm Gel..Gram.) 15 gm PO Q15M PRN; Protocol PRN Reason: per Hypoglycemia Standing Ord. Guaifenesin (Guaifenesin 200 Mg/10 Ml 10 Ml Liquid) 10 ml PO Q4H PRN PRN Reason: cough Last Admin: 05/27/23 18:15 Dose: 10 ml Documented By: ZULAY Ganciclovir Sodium 325 mg/ (Sodium Chloride) 106.5 mls @ 106.5 mls/hr IV Q12H [facility] Last Admin: 05/28/23 11:31 Dose: 106.5 mls/hr Documented By: SLAVA Insulin Glargine (Insulin Glargine,Hum.Rec.Anlog 100 Unit/Ml 10 Ml Vial) 8 unit SUBCUT DAILY [facility] Last Admin: 05/28/23 11:46 Dose: 8 unit Documented By: SLAVA Insulin Human Lispro (Insulin Lispro 100 Unit/Ml 3 Ml Vial) 0 unit SUBCUT QIDACHS [facility]; Protocol Last Admin: 05/28/23 11:49 Dose: Not Given Documented By: SLAVA Non-Admin Reason: NPO Loratadine (Loratadine 10 Mg Tablet) 10 mg PO DAILY [facility] Last Admin: 05/28/23 11:40 Dose: 10 mg Documented By: SLAVA Melatonin (Melatonin 3 Mg Tablet) 6 mg PO BEDTIME PRN PRN Reason: Insomnia Pat Own(Linaclotide [Linzess] 290 Mcg Capsule) 290 mcg PO DAILY [facility] Last Admin: 05/28/23 11:34 Dose: 290 mcg Documented By: SLAVA Pat Own ( Norethindrone-E. Estradiol-Iron [ Blisovi Fe 11/14 () ] 1 Mg-20 Mc 1 tab PO DAILY [facility] Last Admin: 05/28/23 11:38 Dose: 1 tab Documented By: SLAVA Pat Own(Hyoscyamine Sulfate 0.375 Mg Tablet Extended Release 12 Hr) 0.375 mg PO DAILY [facility] Pat Own Med ( Pantoprazole 40mg Tab) 1 each PO BEDTIME PRN PRN Reason: Acid Reflux Last Admin: 05/28/23 11:34 Dose: 1 each Documented By: SLAVA Non-Formulary Medication (Patient Own Medication) 1 each PO DAILY [facility] Ondansetron HCl (Ondansetron Hcl 4 Mg/2 Ml Vial) 4 mg IVPUSH Q8H PRN PRN Reason: Nausea and Vomiting Last Admin: 05/27/23 05:21 Dose: 4 mg Documented By: GUSTAVO Paroxetine HCl (Paroxetine Hcl 20 Mg Tablet) 20 mg PO DAILY [facility] Last Admin: 05/28/23 11:39 Dose: 20 mg Documented By: SLAVA Pharmacy Consult (Consult Rx Perform Med Rec) 1 each MISCELLANE ONCE PRN PRN Reason: Consult order Polyethylene Glycol (Polyethylene Glycol 3350 17 Gm Powd.Pack) 17 gm PO TID PRN PRN Reason: constipation Sodium Biphosphate/Sodium Phosphate (Sodium Phosphate,[place]icking-Dibasic 133 Ml Enema) 133 ml MN ONCE ONE Stop: 05/29/23 07:01 Last Admin: 05/28/23 08:43 Dose: 133 ml Documented By: CATIE Sodium Chloride (0.9 % Sodium Chloride Flush 3 Ml Syringe) 3 ml IVFLUSH QSHIFT [facility] Last Admin: 05/28/23 11:42 Dose: 3 ml Documented By: SLAVA Sodium Chloride (Sodium Chloride 0.65 % Nasal 44 Ml Sprbtl) 1 spray NOSTRIL-B Q1H PRN PRN Reason: congestion, nose bleeds Last Admin: 05/28/23 11:35 Dose: 1 spray Documented By: SLAVA Vitamin D (Cholecalciferol (Vitamin D3) 25 Mcg Tablet) 25 mcg PO DAILY [facility] Last Admin: 05/28/23 11:36 Dose: 25 mcg Documented By: SLAVA Labs 05/28/23 07:07 05/28/23 07:07 Labs: Laboratory Results - last 24 hr 05/25/23 05/26/23 05/27/23 22:06 15:44 16:01 MCV MCH MCHC RDW Plt Count MPV Immature Gran % (Auto) Neut % (Auto) Lymph % (Auto) [place] % (Auto) Eos % (Auto) Baso % (Auto) Lymph # (Auto) [place] # (Auto) Eos # (Auto) Baso # (Auto) Abs Immat Gran (auto) Absolute Neuts (auto) Absolute Nucleated RBC Nucleated RBC % (auto) Smear Tech's Comments Anion Gap Estim Creat Clear Calc Estimated GFR POC Glucose 105 Random Glucose Calcium Total Bilirubin Direct Bilirubin AST ALT Alkaline Phosphatase Total Protein Albumin Respiratory Panel Kelley See Note Adenovirus (Rapid PCR) Not Detected A.phagocytophil DNA PCR NOT DETECTED Babesia microti DNA PCR NOT DETECTED B.pert (TEM-PCR) Not Detected B.parapertussis DNA PCR Not Detected Borrelia sp DNA (PCR) NOT DETECTED Borrelia miyamotoi (PCR) NOT DETECTED C. pneumoniae DNA (PCR) Not Detected Coronavirus OC43 (PCR) Not Detected Coronavirus HKU1 (PCR) Not Detected Coronavirus 229E (PCR) Not Detected Coronavirus NL63 (PCR) Not Detected E.chaffeensis DNA (PCR) NOT DETECTED Human Metapneumovir PCR Not Detected Influenza A (RT-PCR) Not Detected Influenza B (RT-PCR) Not Detected M. pneumoniae (PCR) Not Detected Parainfluenza 1 (PCR) Not Detected Parainfluenza 2 (PCR) Not Detected Parainfluenza 3 (PCR) Not Detected Parainfluenza 4 (PCR) Not Detected RSV (PCR) Not Detected Entero/Rhino (PCR) Not Detected SARS-CoV-2 RNA (RT-PCR) Not Detected Tick-borne Disease Ab SEE NOTE 05/27/23 05/28/23 05/28/23 19:58 03:49 07:07 MCV 96.4 MCH 32.0 MCHC 33.2 RDW 14.6 Plt Count 339 MPV 10.7 Immature Gran % (Auto) 2.6 H Neut % (Auto) 37.1 L Lymph % (Auto) 48.6 H [place] % (Auto) 10.0 Eos % (Auto) 1.0 Baso % (Auto) 0.7 Lymph # (Auto) 3.4 [place] # (Auto) 0.7 Eos # (Auto) 0.1 Baso # (Auto) 0.1 Abs Immat Gran (auto) 0.18 H Absolute Neuts (auto) 2.6 Absolute Nucleated RBC 0.000 Nucleated RBC % (auto) 0.0 Smear Tech's Comments VERIFIED Anion Gap Estim Creat Clear Calc Estimated GFR POC Glucose 167 H 104 Random Glucose Calcium Total Bilirubin Direct Bilirubin AST ALT Alkaline Phosphatase Total Protein Albumin Respiratory Panel Kelley Adenovirus (Rapid PCR) A.phagocytophil DNA PCR Babesia microti DNA PCR B.pert (TEM-PCR) B.parapertussis DNA PCR Borrelia sp DNA (PCR) Borrelia miyamotoi (PCR) C. pneumoniae DNA (PCR) Coronavirus OC43 (PCR) Coronavirus HKU1 (PCR) Coronavirus 229E (PCR) Coronavirus NL63 (PCR) E.chaffeensis DNA (PCR) Human Metapneumovir PCR Influenza A (RT-PCR) Influenza B (RT-PCR) M. pneumoniae (PCR) Parainfluenza 1 (PCR) Parainfluenza 2 (PCR) Parainfluenza 3 (PCR) Parainfluenza 4 (PCR) RSV (PCR) Entero/Rhino (PCR) SARS-CoV-2 RNA (RT-PCR) Tick-borne Disease Ab 05/28/23 05/28/23 05/28/23 07:07 07:10 10:58 MCV MCH MCHC RDW Plt Count MPV Immature Gran % (Auto) Neut % (Auto) Lymph % (Auto) [place] % (Auto) Eos % (Auto) Baso % (Auto) Lymph # (Auto) [place] # (Auto) Eos # (Auto) Baso # (Auto) Abs Immat Gran (auto) Absolute Neuts (auto) Absolute Nucleated RBC Nucleated RBC % (auto) Smear Tech's Comments Anion Gap 13 Estim Creat Clear Calc 103.1 Estimated GFR > 60 POC Glucose 117 H 113 Random Glucose 117 H Calcium 8.0 L Total Bilirubin 0.3 Direct Bilirubin 0.2 AST 58 H ALT 27 Alkaline Phosphatase 171 H Total Protein 5.3 L Albumin 2.3 L Respiratory Panel Kelley Adenovirus (Rapid PCR) A.phagocytophil DNA PCR Babesia microti DNA PCR B.pert (TEM-PCR) B.parapertussis DNA PCR Borrelia sp DNA (PCR) Borrelia miyamotoi (PCR) C. pneumoniae DNA (PCR) Coronavirus OC43 (PCR) Coronavirus HKU1 (PCR) Coronavirus 229E (PCR) Coronavirus NL63 (PCR) E.chaffeensis DNA (PCR) Human Metapneumovir PCR Influenza A (RT-PCR) Influenza B (RT-PCR) M. pneumoniae (PCR) Parainfluenza 1 (PCR) Parainfluenza 2 (PCR) Parainfluenza 3 (PCR) Parainfluenza 4 (PCR) RSV (PCR) Entero/Rhino (PCR) SARS-CoV-2 RNA (RT-PCR) Tick-borne Disease Ab Microbiology Microbiology Results: Microbiology 05/25/23 Unknown Blood Culture - Preliminary Blood - Venous No growth after 48 hours. 05/25/23 22:06 Blood Culture - Final Blood - Venous Coag negative Staphylococcus Assessment and Plan (1) CMV (cytomegalovirus infection): Status: Acute Plan 42-year-old female with pertinent history of Crohn's disease, type 1 insulin-dependent diabetes mellitus, mood disorder, gastroesophageal reflux disease, peripheral neuropathy, Raynaud's disease who presents to the emergency department for evaluation of fevers of unknown origin found to test + for CMV #CMV -IV gancyclovir to start tomorrow per ID; immunocompromised patient -s/p sigmoidoscopy with biopsy to eval for CMV colitis 05/28 -Tylenol prn fevers #Fever unknown origin -likely r/t above -Negative t spot, hiv, blood cultures, rheum factor, hepatitis panel, respiratory panel -Tick panel pending, but recent outpatient tick panel negative -Per ID continue doxycycline, mepron, and azithro until tick borne illness ruled out -Per GI, heme/onc consult placed -echo pending #Acute on chronic normocytic anemia LDH 831 -likely 2/2 acute illness -Negative bone marrow biopsy suboptimal but negative per onc -Oncology consult pending -H/H has remained stable #Elevated LFTs -likely in setting of viral vs tick borne illness -trending down #Type 1 diabetes- controlled -continue basal insulin, humalog on ss -poc glucose -diabetic diet #Crohns -no acute flare -continue home meds -CT with chronic changes of inflammation in rectum with perirectal lymphadenopathy -Per GI, oncology consult placed -Sigmoidoscopy as above - follow biopsy results #Oral/Esophageal candidiasis -continue course of diflucan (last dose 06/02) #Peripheral neuropathy -etiology unclear -continue home meds #Mood disorder -continue home meds DVT prophylaxis- lovenox Full code attending - dr. caceres Pt requires ongoing inpt stay for management of CMV in immunocompromised patient requiring IV antivirals and sigmoidoscopy to evaluate for CMV colitis as well as expert consultation. Time Spent With Patient Time: Total time managing care of this patient today ____ minutes. Quality Stroke Does the patient have a stroke diagnosis?: No VTE Prior VTE?: No VTE Risk Level:: Medical - moderate - high VTE Device Contraindication: Treatment Not Indicated VTE Drug Contraindication: N/A - Med Ordered
--- NOTE | 2023-05-28 14:13 | CONS_ITS ---
DATE OF SERVICE: 05/27/2023 REFERRING PHYSICIAN: STEPAHNI Marquez REASON FOR CONSULTATION: Crohn's disease. HISTORY OF PRESENT ILLNESS: The patient is a pleasant 42-year-old woman, well known to me from prior evaluation. She has a longstanding history of Crohn's disease involving the colon and is currently being maintained on treatment with Stelara as well as azathioprine. She last underwent colonoscopy in January of this year, which showed confluent ulceration in the rectosigmoid with no active bleeding. This appeared unchanged from her last examination and she has had biopsies taken, which has shown ulceration with proctitis. Previous treatment has included Humira and she was started on Stelara in October of 2019. She also has a history of irritable bowel syndrome and both diarrhea and constipation and has been on Linzess. She has a history of gastroesophageal reflux disease, which has been well controlled on pantoprazole. PAST MEDICAL HISTORY: 1. Crohn's disease as above. 2. Irritable bowel syndrome with constipation and diarrhea, chronic and idiopathic constipation. 3. Diverticulitis. 4. Seasonal allergic rhinitis. 5. Diabetes type 1. 6. Cataracts. 7. Gastroesophageal reflux disease. 8. Neuropathy. 9. Mood disorder. CURRENT MEDICATIONS: Her current medication list is reviewed in the chart. ALLERGIES: MULTIPLE MEDICATION ALLERGIES ARE REVIEWED. FAMILY HISTORY: This is reviewed with the patient and is positive for prostate cancer in her father. SOCIAL HISTORY: She does not smoke and does not use excessive amounts of alcohol. REVIEW OF SYSTEMS: SKIN: No pruritus. HEENT: Negative. CARDIOPULMONARY: No shortness of breath or chest pain. GASTROINTESTINAL: As above. GENITOURINARY: Negative. NEUROPSYCHIATRIC: Negative. PHYSICAL EXAMINATION: GENERAL: Shows a pleasant female, lying comfortably in bed. Vital signs are reviewed in electronic medical record and are stable. SKIN: Anicteric. HEENT: Shows no scleral icterus. NECK: Without lymphadenopathy or thyromegaly. LUNGS: Clear. HEART: Shows a regular rate and rhythm. S1, S2. No murmur. ABDOMEN: Soft without focal masses or tenderness. Bowel sounds are present. No organomegaly is noted. EXTREMITIES: Without edema. LABORATORY DATA: Reviewed, including her imaging studies. IMPRESSION: Crohn's disease. At this time, she appears stable with respect to her Crohn's disease. I would recommend continuing her present regimen including her Stelara, as well as her azathioprine. I reviewed her last 3 CT scans, which have shown some thickening in the rectum, which was been chronic and stable over her last 3 CT scans with a small lymph node in the perirectal area, which has really been unchanged. I do not think her GI tract is the source of her fever of unknown origin and given her recent rectal biopsies from January, I would not recommend further evaluation with repeat colonoscopy. She will continue her Linzess for her chronic idiopathic constipation, and can use MiraLAX on a p.r.n. basis. I would also recommend continuing omeprazole for her reflux while she is in the hospital. Thanks for asking me to see her. I will follow her in the hospital with you. MD MARICARMEN Adkins/ESDRAS / [phone]
[2023-05-28 15:32] LABS: TS Negative Control Passed; TS Panel A 0; TS Panel B 0; TS Positive Control Passed; TSpotTB Negative (Negative)
[2023-05-28 16:16] LABS: Glucose, Whole Blood 125 mg/dL (60-115)
[2023-05-28] MEDS: Azithromycin 500 MG TABLET PO (16:43)
--- NOTE | 2023-05-28 17:20 | P.CNHO_ITS ---
Subjective - Subjective Chief complaint: Consult for: 1. Fever. 2. CMV infection. Patient: known to practice within the last 3 years Consult date: 05/28/23 Requesting Physician: John Primary Care Provider: Emi Briceño MD Family Provider: brendan. Medical Summary: DIAGNOSIS: 1. Fever. 2. Adenopathy. HPI - Consult Narrative Reason for consult: Consult for: Fever. Opertunistic infection. Narrative: Janine Mulligan is a 42 year old lady, pertinent who presents to the emergency department for evaluation of fevers. She has had fevers every day about 2 to 3 times a day up to 101/102 degree F for the last 2 weeks. It started on 05/11 and has persisted over the last 2 weeks. No diurnal variation. She also has had night sweats for the last few weeks. States she had a mosquito bite 1 week before the onset of fevers. No weight loss or personal history of cancer. Her last travel was in November when she visited [facility] and [place]. No recent hikes or tick bites. No sick contacts or family with similar symptoms. Patient denies excessive abdominal pain or diarrhea and hence she does not think that it is an exacerbation of Crohn's disease. She saw her primary care doctor on 05/12 and completed 2 weeks of levofloxacin. Clindamycin was added midway but patient was allergic to it and was discontinued. She was also initiated on Diflucan for oral candidiasis. Patient states her symptoms have persisted despite p.o. antibiotics. She denies chest discomfort, cough, shortness of breath, palpitations, changes in urinary habits In the emergency department, she was found to be febrile and tachycardic. LFTs found to be elevated Review of Systems Constitutional: Constitutional: Reports body ache(s), Reports chills, Reports fatigue, Reports fever(s) and Reports malaise Cardiovascular: Cardiovascular: Reports no additional cardiovascular complaints Respiratory: Respiratory: Reports no additional respiratory complaints Gastrointestinal: Gastrointestinal: Reports bloating Genitourinary: Genitourinary: Reports no additional female genitourinary complaints Endocrine: Endocrine: Reports fatigue PMF Medical History: history of Crohn's disease, type 1 insulin-dependent diabetes mellitus, mood disorder, gastroesophageal reflux disease, peripheral neuropathy, Raynaud's disease Annual physical exam Anxiety Chronic pain syndrome Crohn's disease Diabetes type 1, controlled 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 Elevated cholesterol 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), managed as type 1 Review of Systems - Neurologic Reports headache(s) [facility] Medical History: Medical History (Last Reviewed 05/28/23 @ 11:25 by Jay Murray MD) Annual physical exam Anxiety Chronic pain syndrome Crohn's disease Diabetes type 1, controlled 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 Elevated cholesterol 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), 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 of insulin Normal pelvic exam Other specified mononeuropathies Postlaminectomy syndrome of lumbar region Spondylosis of lumbar region without myelopathy or radiculopathy Vitamin D deficiency Family History: Family History (Last Reviewed 05/28/23 @ 11:25 by Jay Murray MD) Mother Tongue cancer Father Type 2 diabetes mellitus Retinopathy Neuropathy Angiopathy Blindness Renal failure Hypertension Cataract Skin cancer Paternal Uncle Substance use disorder Family history: reviewed and not pertinent Surgical History: Surgical History (Last Reviewed 05/28/23 @ 11:25 by Jay Murray MD) H/O tooth extraction History of hemilaminectomy History of root canal procedure Hx of colonoscopy Social History: Social History (Last Reviewed 05/28/23 @ 11:25 by Jay Murray MD) Living Situation History: Household Members: Spouse Household Members: Children Household Members Other:: , 2 sons (11. 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 Housing: House Do you presently have visiting nurse or other home services: No Tobacco History: Patient Tobacco Use Status: Never used Tobacco e-Cigarette/Vaping Use: Never Used Second Hand Smoke Exposure: No Occupation Assessmet: service: No Current occupational status: employed Home Medications and Allergies Current Medications: Current Medications Acetaminophen (Acetaminophen 325 Mg Tablet) 650 mg PO Q6H PRN PRN Reason: Pain, Mild (Pain Scale 1-3) Last Admin: 05/28/23 03:48 Dose: 650 mg Acetaminophen/Butalbital/Caffeine (Butalb/Acetamin/Caff 50/325/40 Tablet) 1 tab PO Q4H PRN PRN Reason: Migraine Headache Last Admin: 05/28/23 05:36 Dose: 1 tab Ascorbic Acid (Ascorbic Acid 500 Mg Tablet) 500 mg PO DAILY NEGRITO Last Admin: 05/28/23 11:39 Dose: 500 mg Atovaquone (Atovaquone 750 Mg/5 Ml Oral.Susp) 1,500 mg PO DAILY [facility] Last Admin: 05/28/23 11:39 Dose: 1,500 mg Azathioprine (Azathioprine 50 Mg Tablet) 100 mg PO DAILY [facility] Last Admin: 05/28/23 11:41 Dose: 100 mg Azithromycin (Azithromycin 500 Mg Tablet) 500 mg PO Q24H [facility] Last Admin: 05/28/23 16:43 Dose: 500 mg Bisacodyl (Bisacodyl 10 Mg Supp.Rect) 10 mg CA DAILY PRN PRN Reason: Constipation Dextrose (Dextrose 50 % 25 Gm/50 Ml Syringe) 25 gm IVPUSH Q15M PRN; Protocol PRN Reason: per Hypoglycemia Standing Ord. Doxycycline Monohydrate (Doxycycline Monohydrate 100 Mg Capsule) 100 mg PO Q12H [facility] Last Admin: 05/28/23 16:43 Dose: 100 mg Enoxaparin Sodium (Enoxaparin Sodium 40 Mg/0.4 Ml Syringe) 40 mg SUBCUT Q24H [facility] Last Admin: 05/28/23 11:43 Dose: 40 mg Ferrous Sulfate (Ferrous Sulfate 324 Mg Tablet.Dr) 324 mg PO DAILY [facility] Last Admin: 05/28/23 11:36 Dose: 324 mg Fluconazole (Fluconazole 100 Mg Tablet) 200 mg PO DAILY [facility] Last Admin: 05/28/23 11:35 Dose: 200 mg Gabapentin (Gabapentin 600 Mg Tablet) 600 mg PO TID [facility] Last Admin: 05/28/23 16:43 Dose: 600 mg Glucose (Glucose Gel 15 Gm Gel..Gram.) 15 gm PO Q15M PRN; Protocol PRN Reason: per Hypoglycemia Standing Ord. Guaifenesin (Guaifenesin 200 Mg/10 Ml 10 Ml Liquid) 10 ml PO Q4H PRN PRN Reason: cough Last Admin: 05/27/23 18:15 Dose: 10 ml Ganciclovir Sodium 325 mg/ (Sodium Chloride) 106.5 mls @ 106.5 mls/hr IV Q12H [facility] Last Infusion: 05/28/23 15:11 Dose: Infused Insulin Glargine (Insulin Glargine,Hum.Rec.Anlog 100 Unit/Ml 10 Ml Vial) 8 unit SUBCUT DAILY [facility] Last Admin: 05/28/23 11:46 Dose: 8 unit Insulin Human Lispro (Insulin Lispro 100 Unit/Ml 3 Ml Vial) 0 unit SUBCUT QIDACHS [facility]; Protocol Last Admin: 05/28/23 13:50 Dose: Not Given Loratadine (Loratadine 10 Mg Tablet) 10 mg PO DAILY [facility] Last Admin: 05/28/23 11:40 Dose: 10 mg Melatonin (Melatonin 3 Mg Tablet) 6 mg PO BEDTIME PRN PRN Reason: Insomnia Pat Own(Linaclotide [Linzess] 290 Mcg Capsule) 290 mcg PO DAILY [facility] Last Admin: 05/28/23 11:34 Dose: 290 mcg Pat Own ( Norethindrone-E. Estradiol-Iron [ Blisovi Fe 11/14 (28) ] 1 Mg-20 Mc 1 tab PO DAILY [facility] Last Admin: 05/28/23 11:38 Dose: 1 tab Pat Own(Hyoscyamine Sulfate 0.375 Mg Tablet Extended Release 12 Hr) 0.375 mg PO DAILY [facility] Pat Own Med ( Pantoprazole 40mg Tab) 1 each PO BEDTIME PRN PRN Reason: Acid Reflux Last Admin: 05/28/23 11:34 Dose: 1 each Non-Formulary Medication (Patient Own Medication) 1 each PO DAILY [facility] Ondansetron HCl (Ondansetron Hcl 4 Mg/2 Ml Vial) 4 mg IVPUSH Q8H PRN PRN Reason: Nausea and Vomiting Last Admin: 05/27/23 05:21 Dose: 4 mg Paroxetine HCl (Paroxetine Hcl 20 Mg Tablet) 20 mg PO DAILY [facility] Last Admin: 05/28/23 11:39 Dose: 20 mg Pharmacy Consult (Consult Rx Perform Med Rec) 1 each MISCELLANE ONCE PRN PRN Reason: Consult order Polyethylene Glycol (Polyethylene Glycol 3350 17 Gm Powd.Pack) 17 gm PO TID PRN PRN Reason: constipation Sodium Chloride (0.9 % Sodium Chloride Flush 3 Ml Syringe) 3 ml IVFLUSH QSHIFT [facility] Last Admin: 05/28/23 16:44 Dose: 3 ml Sodium Chloride (Sodium Chloride 0.65 % Nasal 44 Ml Sprbtl) 1 spray NOSTRIL-B Q1H PRN PRN Reason: congestion, nose bleeds Last Admin: 05/28/23 11:35 Dose: 1 spray Vitamin D (Cholecalciferol (Vitamin D3) 25 Mcg Tablet) 25 mcg PO DAILY [facility] Last Admin: 05/28/23 11:36 Dose: 25 mcg Home Medications Medication Instructions Recorded Confirmed Type ustekinumab 90 mg/mL subcutaneous 90 mg subcut Q8W 12/10/21 05/26/23 History syringe (Stelara) tumeric 100 mg-radha 150 mg-olive 1 cap PO DAILY 07/31/22 05/26/23 History 50 mg-oreg 150 mg-caprylate capsule azathioprine 50 mg tablet 100 mg PO DAILY 02/19/23 05/26/23 History pantoprazole 40 mg tablet,delayed 40 mg PO DAILY@0630 02/19/23 05/26/23 History release insulin glargine U-300 conc 300 6 unit subcut DAILY 04/16/23 05/26/23 History unit/mL (1.5 mL) subcutaneous pen (Toueroso SoloStar U-300 Insulin) vdwvcjn-airnctjyrjmcm-gpofhlhs 250 1 tab PO DAILY PRN Migraine 05/26/23 05/26/23 History mg-250 mg-65 mg tablet (Excedrin Headache Migraine) ferrous sulfate 324 mg (65 mg 324 mg PO DAILY 05/26/23 05/26/23 History iron) tablet,delayed release fluconazole 200 mg tablet 200 mg PO DAILY 05/26/23 05/26/23 History hyoscyamine sulfate 0.375 mg 0.375 mg PO DAILY 05/26/23 05/26/23 History tablet,extended release,12 hr insulin lispro 100 unit/mL 1 sliding scale dose subcut TIDAC 05/26/23 05/26/23 History subcutaneous solution linaclotide 290 mcg capsule 290 mcg PO DAILY 05/26/23 05/26/23 History (Linzess) loratadine 10 mg tablet 10 mg PO DAILY 05/26/23 05/26/23 History norethindrone 1 mg-ethinyl 1 tab PO DAILY 05/26/23 05/26/23 History estradiol 20 mcg (21)-iron 75 mg (7) tablet (Blisovi Fe 11/14 ()) pantoprazole 40 mg tablet,delayed 40 mg PO BEDTIME PRN Acid Reflux 05/26/23 05/26/23 History release Allergies Allergy/AdvReac Type Severity Reaction Status Date / Time cephalexin Allergy Unknown RASH Verified 05/25/23 15:36 Penicillins Allergy Unknown RASH Verified 05/25/23 15:36 Sulfa (Sulfonamide Allergy Unknown RASH Verified 05/25/23 15:36 Antibiotics) Physical Exam Vital signs: Vital Signs Temp 98.6 F 05/28/23 14:55 Pulse 89 05/28/23 14:55 Resp 18 05/28/23 14:55 BP 134/71 05/28/23 14:55 Pulse Ox 97 05/28/23 14:55 O2 Del Method Room Air 05/28/23 14:55 Intake & Output 05/27/23 05/28/23 05/28/23 18:59 06:59 18:59 Intake Total 480 / 1080 600 / 1080 826.5 / 826.5 Output Total 400 / 400 Balance 480 / 680 200 / 680 826.5 / 826.5 Urine Output (Average ml/kg/hr) 0.52 0.52 Intake: Intake, Oral Amount 480 / 1080 600 / 1080 720 / 720 Intake, IV Amount 106.5 / 106.5 Ganciclovir Sodium 325 mg In 0. 106.5 / 106.5 9 % Sodium Chloride 100 ml @ 106.5 mls/hr IV Q12H [facility] Rx#: [id number] Output: Output, Urine Amount 400 / 400 Other: IV Intake, Intraoperative 400 Amount NPO Yes Yes Breakfast % Eaten 100% 100% Lunch % Eaten 75% 100% Number of Unmeasured Voids 3 Urine Bathroom Bathroom Urine Color Yellow Yellow Last Bowel Movement 05/25/23 Weight 64.41 kg Hem/Onc Consult Result - Labs CBC & Chem 7: 05/28/23 07:07 05/28/23 07:07 Labs: Short CBC 05/28/23 Range/Units 07:07 WBC 6.9 (4.8-10.8) X10*3/uL Hgb 9.7 L (12.0-16.0) g/dl Hct 29.2 L (37.0-47.0) % Plt Count 339 (160-400) X10*3/uL BMP 05/28/23 07:07 Sodium 139 Potassium 3.8 Chloride 106 Carbon Dioxide 24 BUN 10 Creatinine 0.62 Calcium 8.0 L Liver Function 05/28/23 Range/Units 07:07 Total Bilirubin 0.3 (0.0-1.0) mg/dL Direct Bilirubin 0.2 (0.0-0.5) mg/dL AST 58 H (5-31) U/L ALT 27 (0-31) U/L Alkaline Phosphatase 171 H (39-117) U/L Albumin 2.3 L (3.5-5.0) g/dL Assessment and Plan Patient Active problem list reviewed?: Yes (1) CMV (cytomegalovirus infection) Problem details: She has elevated CMV PCR 38,000 She has tick serology pending Status: Acute Assessment and plan: 42-year-old lady with history of Crohn's disease, type 1 insulin-dependent diabetes mellitus, mood disorder, gastroesophageal reflux disease, peripheral neuropathy, and Raynaud's disease. She presented for evaluation of fevers of unknown origin. Concern was she is a immunocompromised patient, on account of Stelara. She underwent extensive testing with results as follows: - Negative t spot, hiv, blood cultures, rheum factor, hepatitis panel, respiratory panel - Tick panel pending, but recent outpatient tick panel negative - initially she was covered with doxycycline, mepron, and azithro, while waiting for tick borne illnesses to be ruled out. However she has been found to be + for CMV. She underwent sigmoidoscopy with biopsy to eval for CMV colitis. -echocardiogram will be done. PLAN: The plan is to start IV Gancyclovir tomorrow as per ID's recommendation. She will require a protracted anti viral course. She will be continued on Tylenol prn fevers Thank You the consult, I will follow along with you. CC: Addendum: Patient discharged on 05/29 on: Mepron, Vanganciclovir, azithromycin, and doxycycline. To follow-up with primary and Rheumatology. (2) Abnormal CT of the abdomen Status: Acute Assessment and plan: 42-year-old lady with recent symptoms of fever. Noted to have CMV infection. Other etiologies being ruled out. CT Of the abdomen pelvis from 05/25 revealed: 1. No evidence of central pulmonary emboli. No evidence of large segmental pulmonary emboli although evaluation is somewhat limited due to motion and timing of IV contrast. 2. Chronic rectal wall thickening with associated perirectal lymphadenopathy, stable compared to 05/19/2023 and 09/02/2022. In this patient with history of Crohn's disease, continue follow-up and close attention with GI specialist and colonoscopy is recommended in view of high risk factors for colonic and rectal malignancy. 3. Chronic nonspecific periportal lymphadenopathy. Pelvic adenopathy appears to be rather chronic. Question is if related to Crohn's. PLAN: ID and GI aware. Consider colonoscopy once dust settles and she is stable from her current condition. Thank you, - Time Spent With Patient Time Spent with Patient (in minutes): 30
[2023-05-28 20:26] LABS: Glucose, Whole Blood 162 mg/dL (60-115)
[2023-05-28 21:35] LABS: Glucose, Whole Blood 85 mg/dL (60-115)
[2023-05-29 03:19] VITALS: BP 124/70; PULSE 97; RESP 18; TEMP 36.3; O2SAT 100
[2023-05-29] MEDS: Doxycycline Monohydrate 100 MG CAPSULE PO ×2 (05:15→16:36)
[2023-05-29 07:12] VITALS: BP 106/64; PULSE 105; RESP 16; TEMP 37.8; O2SAT 95
[2023-05-29 07:38] LABS: Glucose, Whole Blood 105 mg/dL (60-115)
[2023-05-29] MEDS: Sodium Chloride 0.65 % Nasal 44 ML SPRBTL 1 SPRAY NOSTRIL-B (08:25)
[2023-05-29] MEDS: 0.9 % Sodium Chloride Flush 3 ML SYRINGE IVFLUSH ×2 (08:25→15:37)
[2023-05-29] MEDS: Insulin Glargine,Hum.rec.anlog 100 UNIT/ML 10 ML VIAL 8 UNIT SUBCUT (08:26)
[2023-05-29] MEDS: Enoxaparin Sodium 40 MG/0.4 ML SYRINGE SUBCUT (08:26)
[2023-05-29] MEDS: Gabapentin 600 MG TABLET PO ×2 (08:27→15:36)
[2023-05-29] MEDS: Atovaquone 750 MG/5 ML ORAL.SUSP 1500 MG PO (08:27)
[2023-05-29] MEDS: Fluconazole 100 MG TABLET 200 MG PO (08:27)
[2023-05-29] MEDS: azaTHIOprine 50 MG TABLET 100 MG PO (08:28)
[2023-05-29] MEDS: PARoxetine HCL 20 MG TABLET PO (08:28)
[2023-05-29] MEDS: Loratadine 10 MG TABLET PO (08:28)
[2023-05-29] MEDS: Ascorbic Acid 500 MG TABLET PO (08:28)
[2023-05-29] MEDS: Ferrous Sulfate 324 MG TABLET.DR PO (08:28)
[2023-05-29] MEDS: Cholecalciferol (Vitamin D3) 25 MCG TABLET PO (08:28)
[2023-05-29] MEDS: Acetaminophen 325 MG TABLET 650 MG PO (08:36)
[2023-05-29] MEDS: Butalb/Acetamin/Caff 50/325/40 TABLET 1 TAB PO (08:36)
[2023-05-29 10:53] LABS: Glucose, Whole Blood 124 mg/dL (60-115)
[2023-05-29 13:28] LABS: PES - Abn Protein Band 1 0.1 g/dL (NONE DETECTED); Prot Elec - Albumin 2.5 g/dL (3.8-4.8); Prot Elec - Alpha1 0.5 g/dL (0.2-0.3); Prot Elec - Alpha2 0.7 g/dL (0.5-0.9); Prot Elec - Beta 1 0.3 g/dL (0.4-0.6); Prot Elec - Beta 2 0.4 g/dL (0.2-0.5); Prot Elec - Gamma 1.3 g/dL (0.8-1.7); Prot Elec - Total Protein 5.6 g/dL (6.1-8.1)
--- NOTE | 2023-05-29 14:29 | HO.POSTANES ---
Post Anesthesia Evaluation Post Anesthesia Evaluation Date of Service: 05/29/23 Vital Signs: Vital Signs Temp Pulse Resp BP Pulse Ox O2 Del Method 05/29/23 07:12 100.1 F 105 H 16 106/64 95 Room Air 05/29/23 03:19 97.3 F 97 18 124/70 100 Room Air Anesthesia: Monitored Mental Status: Awake Pain Control: Satisfactory Nausea/Vomiting: None Hydration: Adequate Anesthesia-Related Issues: No Anes. Related Issues
[2023-05-29] MEDS: Azithromycin 500 MG TABLET PO (15:36)
--- NOTE | 2023-05-29 15:49 | PM.GIPN ---
Subjective Subjective Date of Service: 05/29/23 Interval History: had good bm after resuming linzess Critical Care Time (minutes): 0 Physical Exam Vital Signs: Vital Signs: Last Vital Signs Temp 100.1 F 05/29/23 07:12 Pulse 105 H 05/29/23 07:12 Resp 16 05/29/23 07:12 BP 106/64 05/29/23 07:12 Pulse Ox 95 05/29/23 07:12 O2 Del Method Room Air 05/29/23 07:12 BMI result Body Mass Index 26.0 GI: Other: abdomen is less bloated, soft, nontender Objective Data Labs 05/28/23 07:07 05/28/23 07:07 Labs: Laboratory Results - last 24 hr 05/26/23 05/26/23 05/28/23 03:27 15:33 15:56 POC Glucose 125 H Total Protein (PEP) 5.6 L Albumin (PEP) 2.5 L Cavek-5-Gjkuufuty 0.5 H Dgrsk-1-Dzwrjdjwh 0.7 Yihy-5-Jkodbztm 0.3 L Iocj-3-Kwneoagi 0.4 Gamma Globulins 1.3 Abnorm Protein Band 1 0.1 H Abnorm Protein Band 2 TNP Abnorm Protein Band 3 TNP PEP Interpretation SEE NOTE Malaria/Babesia Smear SEE NOTE 05/28/23 05/28/23 05/29/23 19:34 21:25 07:34 POC Glucose 162 H 85 105 Total Protein (PEP) Albumin (PEP) Fnbtr-5-Frwckggqp Hrgpj-4-Zzjrxsroh Tdci-3-Adbeabba Qmsg-4-Qscdybps Gamma Globulins Abnorm Protein Band 1 Abnorm Protein Band 2 Abnorm Protein Band 3 PEP Interpretation Malaria/Babesia Smear 05/29/23 10:49 POC Glucose 124 H Total Protein (PEP) Albumin (PEP) Osuib-4-Oyuswutih Zibgh-2-Gyrujzgpz Ccsq-4-Kwgumtyr Sgdg-6-Ekbceswz Gamma Globulins Abnorm Protein Band 1 Abnorm Protein Band 2 Abnorm Protein Band 3 PEP Interpretation Malaria/Babesia Smear Microbiology Microbiology Results: Microbiology 05/25/23 Unknown Blood - Venous Blood Culture - Preliminary No growth after 48 hours. 05/25/23 22:06 Blood - Venous Blood Culture - Final Coag negative Staphylococcus Procedures Date of Service Date of Service: 05/29/23 Progress Note: A&P Assessment and plan (1) Crohn's disease: Status: Acute Assessment and Plan: stable from gi standpoint continue outpatient regimen biopsies pending, Dr Montejo covering next week. Time Spent With Patient Time: Total time managing care of this patient today ____ minutes. Quality Stroke Does the patient have a stroke diagnosis?: No VTE Prior VTE?: No VTE Risk Level:: Medical - moderate - high VTE Device Contraindication: Treatment Not Indicated VTE Drug Contraindication: N/A - Med Ordered
[2023-05-29 15:50] VITALS: BP 120/76; PULSE 86; RESP 18; TEMP 37; O2SAT 99
--- NOTE | 2023-05-29 16:07 | P.DS_ITS ---
DS: Providers Provider Date of Service: 05/29/23 Date of admission: 05/26/23 15:30 Date of discharge: 05/29/23 Primary care physician: Emi Briceño MD Consults: 05/26/23 03:09 Consult to Infectious Diseases [place]ine [place]ing [place] [facility] [place] Reason for consultation: fevers 05/26/23 15:06 Consult to Gastroenterology Routine Consulting Provider: Satinder Correa Reason for consultation: fever unknown origin, crohns 05/27/23 09:18 Consult to Hematology / Oncology Routine Consulting Provider: Felicia Klein Reason for consultation: fever unknown origin, anemia, perirectal lymphadenopathy Attending physician on discharge: Jhonny Patrick Discharging clinician: Barbara Lopez DS: Diagnosis Discharge Diagnosis (1) Crohn's disease: Status: Acute (2) CMV (cytomegalovirus infection): Status: Acute (3) Fever of unknown origin: Status: Acute DS: Summary Hospital Course Hospital Course: From H&P on the day of admission This is a 42-year-old female with pertinent history of Crohn's disease, type 1 insulin-dependent diabetes mellitus, mood disorder, gastroesophageal reflux disease, peripheral neuropathy, Raynaud's disease who presents to the emergency department for evaluation of fevers.? Patient states she has had fevers every day about 2 to 3 times a day up to 101/102 degree F for the last 2 weeks.? It started on 05/11 and has persisted over the last 2 weeks.? No diurnal variation.? She also has had night sweats for the last few weeks.? States she had a mosquito bite 1 week before the onset of fevers.? No weight loss or personal history of cancer.? Her last travel was in November when she visited [employer] [facility] [employer] and [place].? No recent hikes or tick bites.? No sick contacts or family with similar symptoms.? Patient denies excessive abdominal pain or diarrhea and hence she does not think that it is an exacerbation of Crohn's disease.? She saw her primary care doctor on 05/12 and completed 2 weeks of levofloxacin.? Clindamycin was added midway but patient was allergic to it and was discontinued.? She was also initiated on Diflucan for oral candidiasis.? Patient states her symptoms have persisted despite p.o. antibiotics.? She denies chest discomfort, cough, shortness of breath, palpitati ons, changes in urinary habits In the emergency department, patient was found to be febrile and tachycardic.? LFTs found to be elevated 42-year-old lady with history of Crohn's disease, type 1 insulin-dependent diabetes mellitus, mood disorder, gastroesophageal reflux disease, peripheral neuropathy, and Raynaud's disease. She presented for evaluation of fevers of unknown origin. Concern was she is a immunocompromised patient, on account of Stelara and Imuran She underwent extensive testing: Chest x-ray, CTA negative. CT of the abdomen and pelvis showing chronic rectal wall thickening and associated perirectal lymphadenopathy which has been stable since 2021. Negative t spot, hiv, blood cultures, rheum factor, hepatitis panel, respiratory panel. Tick panel pending, but recent outpatient tick panel negative. Cortisol, TSH wnl. She was covered with doxycycline, mepron, and azithro while waiting for tick borne illnesses to be ruled out. She did test + for CMV. Given crohns, ?She underwent sigmoidoscopy with biopsy to eval for CMV colitis, she did have some ulcerations in the rectosigmoid which was unchanged from her previous examination. Biopsies were obtained from the abnormal tissue to be sent for CMV. This is pending at the time of discharge. echocardiogram was negative for endocarditis. 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 She has been treated with IV ganciclovir and will be discharged home to complete an oral course of antiviral. In addition she will be continued doxycycline, azithromycin, Mepron to cover any possible tick-borne illness, would also cover for occult PJP. Recommend outpatient follow-up with Rheumatology possible connective tissue disease/autoimmune condition contributing to fevers. Will follow up with ID next week. Time Spent with Patient Time attestation: Total time managing care of this patient today ____ minutes. Discharge coordination time: Greater than 30 minutes Quality: Safe Use of Opioids Does Pt have an Active Cancer Diagnosis on the Problem List?: No Quality: Stroke Does the patient have a stroke diagnosis?: No Physical Exam Vital Signs: Vital Signs: Last Vital Signs Temp 98.6 F 05/29/23 15:50 Pulse 86 05/29/23 15:50 Resp 18 05/29/23 15:50 BP 120/76 05/29/23 15:50 Pulse Ox 99 05/29/23 15:50 O2 Del Method Room Air 05/29/23 15:50 BMI result Body Mass Index 26.0 Const: General: comfortable, no acute distress, alert and awake Nutritional Appearance: average body habitus Orientation/consciousness: patient oriented x3 Resp: Effort & Inspection: normal respiratory effort, able to speak in complete sentences, no respiratory distress and no use of accessory muscles Cardio: Rate: regular rate Heart sounds: S1 normal heart sound present and S2 normal heart sound present Skin: Other: warm/dry, no rash Neuro: Other: no meningeal signs General: patient oriented x3, moves all extremities and CN's II-XI intact bilaterally Extrem: General: Yes no pedal edema DS: Data Data Completed and Pending Pending studies at discharge: Pending at discharge 05/28/23 09:12 Surgical [PTH] Routine Labs on day of discharge: Laboratory Results - last 24 hr 05/26/23 05/26/23 05/28/23 03:27 15:33 15:56 POC Glucose 125 H Total Protein (PEP) 5.6 L Albumin (PEP) 2.5 L Aqgco-9-Bcvvybjrn 0.5 H Pkfhl-7-Jwkxrgshh 0.7 Ursf-5-Ulidrxbo 0.3 L Bdlj-7-Pxgdlcrd 0.4 Gamma Globulins 1.3 Abnorm Protein Band 1 0.1 H Abnorm Protein Band 2 TNP Abnorm Protein Band 3 TNP PEP Interpretation SEE NOTE Malaria/Babesia Smear SEE NOTE 05/28/23 05/28/23 05/29/23 19:34 21:25 07:34 POC Glucose 162 H 85 105 Total Protein (PEP) Albumin (PEP) Qkfuu-2-Tlgxjcycc Echru-6-Bjmjhymti Zvzt-0-Qnbkwizy Pinj-8-Bteuptgq Gamma Globulins Abnorm Protein Band 1 Abnorm Protein Band 2 Abnorm Protein Band 3 PEP Interpretation Malaria/Babesia Smear 05/29/23 10:49 POC Glucose 124 H Total Protein (PEP) Albumin (PEP) Btxkr-4-Lsjecsyjo Ffvap-3-Xpoybcmvj Ukyi-7-Jlbhaiec Yvqt-5-Fbfqmgjm Gamma Globulins Abnorm Protein Band 1 Abnorm Protein Band 2 Abnorm Protein Band 3 PEP Interpretation Malaria/Babesia Smear Preliminary micro results at discharge 05/25/23 Unknown Blood Culture - Preliminary Blood - Venous No growth after 48 hours. Discharge Plan Discharge Anticipated Discharge Date/Time: 05/29/23 16:19 Patient Disposition: Home, Self-Care Discharge Diagnosis: Fever of unknown origin CMV infection Referrals: Emi Briceoñ MD [Primary Care Provider] - 1 Week Britton Gonzales MD [Physician] - 1 Week Discharge Medications: New atovaquone [Mepron] 750 mg/5 mL Suspension 1,500 mg PO DAILY 7 Days Qty: 70 0RF doxycycline monohydrate 100 mg Capsule 100 mg PO Q12H 7 Days Qty: 14 0RF azithromycin 250 mg tablet 250 mg PO DAILY 7 Days Qty: 7 0RF valganciclovir [Valcyte] 450 mg tablet 900 mg PO BID 11 Days Qty: 44 0RF Continued gabapentin 600 mg tablet 600 mg PO TID 30 Days Qty: 90 8RF cholecalciferol (vitamin D3) 25 mcg (1,000 unit) capsule 25 mcg PO DAILY Qty: 90 3RF ascorbate calcium (vitamin C) 500 mg tablet 500 mg PO DAILY Qty: 90 3RF atorvastatin 40 mg tablet 40 mg PO DAILY Qty: 30 4RF Stelara 90 mg/mL syringe 90 mg subcut Q8W Evelio Rodriguez U-300 Insulin 300 unit/mL (1.5 mL) insulin pen 6 unit subcut DAILY fluconazole 200 mg tablet 200 mg PO DAILY Rx Instructions: END DATE: 06/02/23 norethindrone-e.estradiol-iron [Blisovi Fe 11/14 (28)] 1 mg-20 mcg (21)/75 mg (7) tablet 1 tab PO DAILY Linzess 290 mcg capsule 290 mcg PO DAILY hyoscyamine sulfate 0.375 mg tablet extended release 12 hr 0.375 mg PO DAILY pantoprazole 40 mg tablet,delayed release (DR/EC) 40 mg PO BEDTIME PRN (Reason: Acid Reflux) insulin lispro 100 unit/mL Solution 1 sliding scale dose SUBCUT TIDAC Excedrin Migraine 250-250-65 mg Tablet 1 tab PO DAILY PRN (Reason: Migraine Headache) loratadine 10 mg Tablet 10 mg PO DAILY ferrous sulfate 324 mg (65 mg iron) tablet,delayed release (DR/EC) 324 mg PO DAILY pantoprazole 40 mg tablet,delayed release (DR/EC) 40 mg PO DAILY@0630 paroxetine HCl 25 mg tablet extended release 24 hr 25 mg PO DAILY Qty: 90 2RF azathioprine 50 mg tablet 100 mg PO DAILY swejwyy-xsum-dcidb-oreg-capryl 100 mg-150 mg- 50 mg-150 mg capsule 1 cap PO DAILY No Action (DME) Omnipod 5 G6 Intro Kit (Gen 5) Cartridge See Rx Instructions .Route Qty: 1 0RF Rx Instructions: As directed (DME) Omnipod 5 G6 Pods (Gen 5) Cartridge See Rx Instructions .Route Qty: 5 0RF Rx Instructions: As directed (DME) Dexcom G7 Sensor Device See Rx Instructions .Route Qty: 3 5RF Rx Instructions: As directed change every 10 days (DME) Dexcom G7 Pediatric Clinical Dietician Misc See Rx Instructions .Route Qty: 1 0RF Rx Instructions: As directed Discharge Orders: Discharge Order (Routine); Ordered 05/29/23 Ordered By: Barbara Lopez Activity on Discharge: As tolerated Stand Alone Forms: Patient Portal Discharge page, Work/School Release Care Plan Goals: see below Health Concerns: Fever of Unknown origin CMV + elevated LFTs Pituitary macroadenoma Plan of Treatment: complete course of doxycycline, azithromycin, Mepron, valgancyclovir (in place of ganciclovir which is only IV) as prescribed follow up with ID next week Follow-up with Endocrine as scheduled Call to schedule follow-up appointment with Rheumatology Keep follow-up appointment with PCP Assessment: see discharge summary
--- NOTE | 2023-05-29 16:18 | PM.IDPN ---
Subjective Subjective Date of Service: 05/29/23 Critical Care Time (minutes): 15 Comment: she still has low grade temp,max 100.5 tolerating medication Objective Data Labs 05/28/23 07:07 05/28/23 07:07 Labs: Laboratory Results - last 24 hr 05/26/23 05/26/23 05/28/23 03:27 15:33 19:34 POC Glucose 162 H Total Protein (PEP) 5.6 L Albumin (PEP) 2.5 L Bshqj-3-Yijczytwg 0.5 H Bytjl-2-Khbwuvdwu 0.7 Zjbz-5-Mqkyylia 0.3 L Pppp-3-Zlsdmbhl 0.4 Gamma Globulins 1.3 Abnorm Protein Band 1 0.1 H Abnorm Protein Band 2 TNP Abnorm Protein Band 3 TNP PEP Interpretation SEE NOTE Malaria/Babesia Smear SEE NOTE 05/28/23 05/29/23 05/29/23 21:25 07:34 10:49 POC Glucose 85 105 124 H Total Protein (PEP) Albumin (PEP) Ratdq-0-Sjprwiapf Lmuot-0-Dphbkwnlb Sbin-6-Lxdeumhm Znuf-7-Czspajoz Gamma Globulins Abnorm Protein Band 1 Abnorm Protein Band 2 Abnorm Protein Band 3 PEP Interpretation Malaria/Babesia Smear Microbiology Microbiology Results: Microbiology 05/25/23 Unknown Blood - Venous Blood Culture - Preliminary No growth after 48 hours. 05/25/23 22:06 Blood - Venous Blood Culture - Final Coag negative Staphylococcus Physical Exam Vital Signs: Vital Signs: Last Vital Signs Temp 98.6 F 05/29/23 15:50 Pulse 86 05/29/23 15:50 Resp 18 05/29/23 15:50 BP 120/76 05/29/23 15:50 Pulse Ox 99 05/29/23 15:50 O2 Del Method Room Air 05/29/23 15:50 BMI result Body Mass Index 26.0 Const: General: cooperative HEENT: Head: Yes normal to inspection Face and sinus: Yes normal facial exam Mouth: Normal oral and palatal mucosa present Teeth and gingiva: dentition normal Eyes: General: appearance normal, both eyes and all related structures Pupils: Equal, round and reactive pupils present Resp: Effort & Inspection: normal respiratory effort Cardio: Rate: regular rate Rhythm: regular rhythm GI: Palpation (GI): Soft to palpation and nontender : General: Yes no CVA tenderness Back/Spine/Pelvis: Back: no CVA tenderness Skin: General skin exam: no rashes or lesions noted Neuro: General: moves all extremities Cranial nerves: Yes Equal, round and reactive pupils present Extrem: General: Yes normal to inspection Psych: Appearance: grossly normal Assessment and Plan Assessment and plan (1) Fever of unknown origin: Problem details: Fever of unknown origin Fever is less prominent Status: Acute Assessment and Plan: Continue current medication. Add Medrol dose pack ?Jarisch Herxheimer reaction Fever source is not found in over 30% of cases Rheumatology if no source found Time Spent With Patient Time: Total time managing care of this patient today ____ minutes.
[2023-05-29 16:21] LABS: Glucose, Whole Blood 176 mg/dL (60-115)
--- NOTE | 2023-05-29 16:37 | P.CDIM_ITS ---
PROVIDER RESPONSE TEXT: To clarify, the appropriate diagnosis supported by the clinical indicators: Other (explain): met sirs criteria. 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 fever of unknown origin QUERY TEXT: PHYSICIAN'S DOCUMENTATION REQUEST Date of Query: 05/29/2023 08:24 AM EDT Patient Name: Janine Mulligan Admit Date: 05/26/2023 Dear Babrara Lopez, A review of the medical record indicates additional documentation may be needed. Please review below and update the documentation accordingly. Clinical Indicators: Temp: 102.8 100.5 HR: 127 115 LA: 2.4 RR 20 Patient states ongoing fevers that have persisted despite being on PO Antibiotics. Tachycardic, elevated LFT's, chills, fatigue, fevers, malaise with fevers up to 103.1 w HR 140 poa Azithromyicn, vibromycin, patient had arrived to ED having been on Levofloxacin Dx: CMV H&P - Patient with fevers an SIRS positive Please clarify which, if any, of the following is the most likely etiology of the above symptoms and treatment rendered: Viral Sepsis SIRS Localized infection only, without systemic illness Indicate the site/source, such as UTI, pneumonia, etc. Other (explain)Clinically unable to determine (explain)Thank you, Karen Ashley, CCS, CDIS Use of terms such as suspected, likely, concern for, or probable (associated with a specific diagnosi s that is being evaluated, monitored, or treated as if it exists) are acceptable and can be coded in the inpatient se tting, when documented at the time of discharge. Please use your independent medical judgment in providing your response. THIS QUERY IS PART OF THE PERMANENT MEDICAL RECORD
[2023-05-31 20:58] LABS: Babesia IgG <1:64 titer (<1:64); Babesia IgM <1:20 titer (<1:20)
[2023-06-05 14:04] LABS: ANAchoice Screen POSITIVE (Abnormal); ds-DNA 2
[2023-06-09 10:58] LABS: A. Phagocytophilum Ab IgG <1:64 (<1:64); A. Phagocytophilum Ab IgM 1:20 (<1:20); E. Chaffeensis Ab IgG <1:64 (<1:64); E. Chaffeensis Ab IgM <1:20 (<1:20); Interpretation EQUIVOCAL
== END 2023-05-29 18:45 | disposition home or self-care (01) | DRG 723 ==
LOC: HO.ED 05-26 02:56 → HO.EDOVER 05-26 03:04 → HO.IMC 05-26 10:36
PROVIDERS: Internal Medicine; Internal Medicine Gastroenterology; Physician Assistant; Admitting Provider Student in an Organized Health Care Education/Training Program; Emergency Provider Emergency Medicine; PCP Internal Medicine; Visit Provider Physician Assistant Medical
PROC: 0DJD8ZZ Inspection of Lower Intestinal Tract, Via Natural or Artificial Opening Endoscopic (ICD-10-PCS; CPT 45330; principal; 2023-05-28 08:30)
DX: B25.8 Other cytomegaloviral diseases (principal); D84.821 Immunodeficiency due to drugs; R65.10 Systemic inflammatory response syndrome (SIRS) of non-infectious origin without acute organ dysfunction; E10.42 Type 1 diabetes mellitus with diabetic polyneuropathy; B37.0 Candidal stomatitis; K50.90 Crohn's disease, unspecified, without complications; R50.9 Fever, unspecified; D64.9 Anemia, unspecified; F41.9 Anxiety disorder, unspecified; E78.00 Pure hypercholesterolemia, unspecified; Z20.822 Contact with and (suspected) exposure to COVID-19; I73.00 Raynaud's syndrome without gangrene; K21.9 Gastro-esophageal reflux disease without esophagitis; Z79.620 Long term (current) use of immunosuppressive biologic; Z79.899 Other long term (current) drug therapy
CPT/HCPCS: 36415; 70553; 71045; 71275; 74177; 80048; 80053; 80076; 81003; 82010; 82533; 82947; 83605; 83615; 84165; 84443; 85025; 85379; 85652; 86038; 86140; 86225; 86431; 86481; 86666; 86704; 86706; 86709; 86753; 86777; 86778; 86803; 87040; 87147; 87205; 87207; 87252; 87340; 87389; 87497; 87502; 87633; 87635; 87798; 87801; 88305; 93306; 93356; 99285; A9585; J1570; J1650; J2405; Q9957; Q9967

== ENCOUNTER → 2023-05-26 02:58 | Outpatient (BNV) | payer OTHER, SELFPAY | PROVIDERS: Admitting Provider Student in an Organized Health Care Education/Training Program; Emergency Provider Emergency Medicine; PCP Internal Medicine; Visit Provider Student in an Organized Health Care Education/Training Program | DX: K50.90 Crohn's disease, unspecified, without complications (principal); B25.9 Cytomegaloviral disease, unspecified; R50.9 Fever, unspecified | CPT/HCPCS: 99222; 99233; 99239; 99499 ==

== ENCOUNTER 2023-05-26 15:30 | Outpatient (BNV) | payer OTHER, SELFPAY | END 2023-05-28 07:00 | PROVIDERS: Admitting Provider Student in an Organized Health Care Education/Training Program; Emergency Provider Emergency Medicine; PCP Internal Medicine; Visit Provider Internal Medicine | DX: R50.9 Fever, unspecified (principal) | CPT/HCPCS: 93306 ==

== ENCOUNTER → 2023-05-26 15:30 | Outpatient (BNV) | payer OTHER, SELFPAY | PROVIDERS: Admitting Provider Student in an Organized Health Care Education/Training Program; Emergency Provider Emergency Medicine; PCP Internal Medicine; Visit Provider Internal Medicine Medical Oncology | DX: B25.9 Cytomegaloviral disease, unspecified (principal); R50.9 Fever, unspecified | CPT/HCPCS: 99222 ==

== ENCOUNTER → 2023-05-26 15:30 | Outpatient (BNV) | payer OTHER, SELFPAY | PROVIDERS: Admitting Provider Student in an Organized Health Care Education/Training Program; Emergency Provider Emergency Medicine; PCP Internal Medicine; Visit Provider Internal Medicine | DX: R50.9 Fever, unspecified (principal) | CPT/HCPCS: 99222; 99231; 99232 ==

== ENCOUNTER 2023-06-04 14:04 | Outpatient (AMB) | payer OTHER, SELFPAY ==
--- NOTE | 2023-06-04 14:07 | MHC.OFFVIS ---
Intake Vital Signs 06/04/23 14:09 Weight 142 lb 3.17 oz BP 98/66 Blood Pressure Location Rt brachial Position Sitting Pulse 98 Pulse Source Pulse Oximeter Intake Visit Reasons: Pituitary gland Intake Note: Patient presents today for pituitary gland follow up visit. Legal Services Manager Required: No Accompanied by: Spouse Allergies cephalexin Allergy (Unknown, Verified 06/04/23 14:12) RASH Penicillins Allergy (Unknown, Verified 06/04/23 14:12) RASH Sulfa (Sulfonamide Antibiotics) Allergy (Unknown, Verified 06/04/23 14:12) RASH clindamycin Adverse Reaction (Mild, Verified 06/04/23 14:12) Itching Medication List - Last Reconciled 06/04/23 by Luis Viera MD ascorbate calcium (vitamin C) 500 mg PO DAILY dccnqpk-yqyrxoqbiuhhm-pxnqvppm 250-250-65 mg (Excedrin Migraine) 1 tab PO DAILY PRN atorvastatin 40 mg PO DAILY atovaquone (Mepron) 1,500 mg (10 mL) PO DAILY 7 days azathioprine 100 mg PO DAILY azithromycin 250 mg PO DAILY 7 days blood-glucose meter,continuous (Dexcom G7 Marketing Underwriter) As directed blood-glucose sensor (Dexcom G7 Sensor device) As directed change every 10 days cholecalciferol (vitamin D3) 25 mcg PO DAILY doxycycline monohydrate 100 mg PO Q12H 7 days ferrous sulfate 324 mg PO DAILY fluconazole 200 mg PO DAILY gabapentin 600 mg PO TID 30 days hyoscyamine sulfate ER 0.375 mg PO DAILY insulin glargine U-300 conc (Toujeo SoloStar U-300 Insulin) 6 units subcut DAILY insulin lispro 1 sliding scale dose subcut TIDAC insulin pump cart,auto,BT-cntr (Omnipod 5 G6 Intro Kit (Gen 5) subcutaneous cartridge with controller) As directed insulin pump cart,automated,BT (Omnipod 5 G6 Pods (Gen 5) subcutaneous cartridge) As directed linaclotide (Linzess) 290 mcg PO DAILY loratadine 10 mg PO DAILY norethindrone-e.estradiol-iron 1 mg-20 mcg (21)/75 mg (7) (Blisovi Fe / (28)) 1 tab PO DAILY ondansetron 4 mg PO BEDTIME PRN 4 days pantoprazole 40 mg PO BEDTIME PRN paroxetine HCl ER 25 mg PO DAILY qemqjwu-vtwj-hqwqh-oreg-capryl 100 mg-150 mg- 50 mg-150 mg 1 cap PO DAILY ustekinumab (Stelara) 90 mg subcut Q8W valganciclovir (Valcyte) 900 mg (2 x 450 mg) PO BID 11 days HPI HPI Comments History of Present Illness Details Patient is a 42-year-old white female seen in endocrinology for management of type 1 diabetes. Today's visit revolves around an incidentally discovered pituitary adenoma. Patient MRI did done due to headaches. She denies any breast discharge or loss of vision. Her menses have been light but do come each mo . She denies any symptoms of Hemant syndrome except some muscular weaknes . No use of steroids. She denies any symptoms of acromegaly. Thyroid function studies have been normal 3 mm hypoenhancing versus nonenhancing lesion within the left posterior paramidline pituitary gland may reflect a pars intermedia cyst or cystic pituitary macroadenoma and can be correlated with pituitary function tests. The infundibulum is slightly deviated to the right of midline. No suprasellar extension or mass effect along the optic apparatus. Normal symmetric enhancement of the cavernous sinuses. No acute infarct. No extra-axial fluid collection. The ventricles and sulci are normal in size and configuration without significant volume loss or hydrocephalus. No abnormal intraparenchymal or leptomeningeal enhancement. No significant mass effect or herniation pattern.? The intracranial dural venous sinus and arterial flow voids are preserved. The orbits are grossly unremarkable.? Trace ethmoid mucosal thickening. No mastoid effusion. T1 hypointense marrow signal of the calvarium may reflect red marrow conversion in the setting of anemia and can be correlated with CBC. MR/MR head/brain wo/w con IMPRESSION: ? 1.? 3 mm hypoenhancing versus nonenhancing lesion within the left posterior paramidline pituitary gland may reflect a pars intermedia cyst or cystic pituitary macroadenoma and can be correlated with pituitary function tests. 2.? 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 3.? T1 hypointense marrow signal of the calvarium may reflect red marrow conversion in the setting of anemia and can be correlated with CBC. ? 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), managed as type 1 [facility] (current) use of insulin Normal pelvic exam Other specified mononeuropathies Pituitary adenoma Postlaminectomy syndrome of lumbar region Spondylosis of lumbar region without myelopathy or radiculopathy Vitamin D deficiency Surgical History H/O tooth extraction History of hemilaminectomy History of root canal procedure Hx of colonoscopy Family History Mother Tongue cancer Father Type 2 diabetes mellitus Retinopathy Neuropathy Angiopathy Blindness Renal failure Hypertension Cataract Skin cancer Paternal Uncle Substance use disorder Social History Household Members: Spouse and Children Household Members Other:: , 2 sons (11. 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 Housing: House Do you presently have visiting nurse or other home services: No Alcohol intake: never Patient Tobacco Use Status: Never used Tobacco e-Cigarette/Vaping Use: Never Used Second Hand Smoke Exposure: No service: No Current occupational status: employed Cognitive needs: No Hearing needs: No Vision needs: Yes Physical Exam Vital Signs: Last Vital Signs Pulse 98 06/04/23 14:09 BP 98/66 06/04/23 14:09 Const Other: Absence of cushingoid or acromegalic features Assessment & Plan Assessment & Plan (1) Pituitary adenoma: Code(s): D35.2 - Benign neoplasm of pituitary gland Plan: Is a 42-year-old white female found to have an incidentally discovered pituitary micro adenoma. Rule out hypersecretion. The plan is to check a fasting prolactin, 24 hour urine for free cortisol and creatinine . Assuming above is normal, micro adenoma can be observed with serial MRIs Orders: Orders Prolactin Today D35.2 - Benign neoplasm of pituitary gland Cortisol, Free 24Hr Urine Today D35.2 - Benign neoplasm of pituitary gland Creatinine, 24 Hr Group Today D35.2 - Benign neoplasm of pituitary gland Medications: Discontinued insulin glargine U-300 conc 11 units (0.0367 mL) subcut DAILY 30 days 1.101 mL 6RF E10.9 - Type 1 diabetes mellitus without complications Coding Level of Care Code Est Pt Level 3 (85749) Diagnoses Pituitary adenoma D35.2
[2023-06-04 14:09] VITALS: BP 98/66; PULSE 98
== END 2023-06-04 15:05 | disposition home or self-care (01) ==
PROVIDERS: PCP Internal Medicine; Visit Provider Internal Medicine Endocrinology, Diabetes & Metabolism
DX: D35.2 Benign neoplasm of pituitary gland (principal)
CPT/HCPCS: 99213

== ENCOUNTER → 2023-06-04 14:04 | Outpatient (BNVA) | payer OTHER, SELFPAY | PROVIDERS: PCP Internal Medicine; Visit Provider Internal Medicine Endocrinology, Diabetes & Metabolism ==

== ENCOUNTER 2023-06-04 15:13 | Outpatient (REF) | payer OTHER, SELFPAY ==
[2023-06-04 16:27] LABS: Hematocrit 32.1 % (37.0-47.0); Hemoglobin 10.2 g/dl (12.0-16.0); Mean Corpuscular HGB Conc 31.8 g/dl (31.0-35.0); Mean Corpuscular Hemoglobin 31.7 pg (27.0-33.0); Mean Corpuscular Volume 99.7 fL (80.0-98.0); Mean Platelet Volume 10.1 fL (9.4-12.3); Platelet Count 598 X10*3/uL (160-400); Red Blood Count 3.22 X10*6/uL (4.20-5.50); Red Cell Distribution Width 15.1 % (11.0-16.0); White Blood Count 4.9 X10*3/uL (4.8-10.8)
[2023-06-04 16:37] LABS: Alanine Aminotransferase 16 U/L (0-31); Albumin Level 3.2 g/dL (3.5-5.0); Alkaline Phosphatase 126 U/L (39-117); Aspartate Amino Transferase 34 U/L (5-31); Bilirubin Direct 0.1 mg/dL (0.0-0.5); Bilirubin Total 0.3 mg/dL (0.0-1.0); Total Protein 6.9 g/dL (6.5-8.0)
[2023-06-05 11:25] LABS: Iron 66 mcg/dL (30-160); Percent Iron Saturation 27 % (15-50); Total Iron Binding Capacity 246 mcg/dL (228-428); Unsaturated Iron Binding 180 ug/dL
[2023-06-05 11:45] LABS: Ferritin 961 ng/mL (10-250)
== END 2023-06-04 15:14 | disposition home or self-care (01) ==
LOC: HO.LAB 15:13
PROVIDERS: Internal Medicine Medical Oncology; Visit Provider Internal Medicine Gastroenterology
DX: R79.89 Other specified abnormal findings of blood chemistry (principal); D64.9 Anemia, unspecified
CPT/HCPCS: 36415; 80076; 82728; 83540; 85027

== ENCOUNTER 2023-06-08 09:00 | Outpatient (REF) | payer OTHER, SELFPAY ==
[2023-06-08 12:41] LABS: Cholesterol 150 mg/dL; HDL Cholesterol 36 mg/dL; LDL Cholesterol Calculated 76 mg/dl; Triglycerides 193 mg/dL
[2023-06-08 13:00] LABS: Creatinine Urine 180.33 mg/dL; Microalbum/Creatinine Ratio Ur 5.5 ug/mg cr
[2023-06-08 14:35] LABS: Creatinine, mg/dL 144.54
[2023-06-08 18:35] LABS: Creatinine, 24Hr Urine 0.8 G/Day (1.0-2.0); Total Volume 24 Hour Urine 550 mL
[2023-06-09 06:28] LABS: Prolactin 6.4 ng/mL
[2023-06-15 17:49] LABS: Cortisol Free, 24 Hr Urine 12.5 mcg/24 h (4.0-50.0); Creatinine, 24 Hr Urine 0.76 g/24 h (0.50-2.15); Total Volume, 24 Hr Urine 550 mL
== END 2023-06-08 09:01 | disposition home or self-care (01) ==
LOC: HO.HMGCLDS 09:00
PROVIDERS: PCP Internal Medicine; Visit Provider Internal Medicine Endocrinology, Diabetes & Metabolism
DX: E13.9 Other specified diabetes mellitus without complications (principal); D35.2 Benign neoplasm of pituitary gland
CPT/HCPCS: 36415; 80061; 82043; 82530; 82570; 84146

== ENCOUNTER 2023-06-09 12:50 | Outpatient (AMB) | payer OTHER, SELFPAY ==
[2023-06-09 12:55] VITALS: BP 108/66; PULSE 100; O2SAT 100; BMI 25.6
--- NOTE | 2023-06-09 12:55 | MHC.PC.OV ---
Vital Signs 06/09/23 12:55 Height 5 ft 2 in Weight 140 lb BMI 25.6 BP 108/66 Blood Pressure Location Lt brachial Position Sitting Pulse 100 Pulse Source Pulse Oximeter Pulse Oximetry (%) 100 Oxygen Delivery Method Room Air Intake Visit Reasons: ?dvt Intake Note: Pt is here today for a sick visit. Pt c/o L calf pain that goes down her foot. Pt states that she also gets the pain in her R calf. Allergies cephalexin Allergy (Unknown, Verified 06/09/23 13:00) RASH Penicillins Allergy (Unknown, Verified 06/09/23 13:00) RASH Sulfa (Sulfonamide Antibiotics) Allergy (Unknown, Verified 06/09/23 13:00) RASH clindamycin Adverse Reaction (Mild, Verified 06/09/23 13:00) Itching Medication List - Last Reconciled 06/09/23 by Emi Briceño MD ascorbate calcium (vitamin C) 500 mg PO DAILY hpbdyyi-zyjdevbjkcvda-cevupftg 250-250-65 mg (Excedrin Migraine) 1 tab PO DAILY PRN atorvastatin 40 mg PO DAILY atovaquone (Mepron) 1,500 mg (10 mL) PO DAILY 7 days azathioprine 100 mg PO DAILY azithromycin 250 mg PO DAILY 7 days blood-glucose meter,continuous (Dexcom G7 [employer] Librarian) As directed blood-glucose sensor (Dexcom G7 Sensor device) As directed change every 10 days cholecalciferol (vitamin D3) 25 mcg PO DAILY ferrous sulfate 324 mg PO DAILY fluconazole 200 mg PO DAILY gabapentin 600 mg PO TID 30 days hyoscyamine sulfate ER 0.375 mg PO DAILY insulin glargine U-300 conc (Toujeo SoloStar U-300 Insulin) 6 units subcut DAILY insulin lispro 1 sliding scale dose subcut TIDAC insulin pump cart,auto,BT-cntr (Omnipod 5 G6 Intro Kit (Gen 5) subcutaneous cartridge with controller) As directed insulin pump cart,automated,BT (Omnipod 5 G6 Pods (Gen 5) subcutaneous cartridge) As directed linaclotide (Linzess) 290 mcg PO DAILY loratadine 10 mg PO DAILY norethindrone-e.estradiol-iron 1 mg-20 mcg (21)/75 mg (7) (Blisovi Fe 11/14 (28)) 1 tab PO DAILY ondansetron 4 mg PO BEDTIME PRN 4 days pantoprazole 40 mg PO BEDTIME PRN paroxetine HCl ER 25 mg PO DAILY tptjxux-hboj-mgchy-oreg-capryl 100 mg-150 mg- 50 mg-150 mg 1 cap PO DAILY ustekinumab (Stelara) 90 mg subcut Q8W valganciclovir (Valcyte) 900 mg (2 x 450 mg) PO BID 11 days Tobacco use date assessed: 05/19/23 HPI ?dvt HPI Details Patient presents complaining of bilateral posterior calf tenderness and pain when walking. She is concerned about DVT. 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), managed as type 1 [facility] (current) use of insulin Normal pelvic exam Other specified mononeuropathies Pituitary adenoma Postlaminectomy syndrome of lumbar region Spondylosis of lumbar region without myelopathy or radiculopathy Vitamin D deficiency Surgical History H/O tooth extraction History of hemilaminectomy History of root canal procedure Hx of colonoscopy Family History Mother Tongue cancer Father Type 2 diabetes mellitus Retinopathy Neuropathy Angiopathy Blindness Renal failure Hypertension Cataract Skin cancer Paternal Uncle Substance use disorder Social History Household Members: Spouse and Children Household Members Other:: , 2 sons (11. 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 Lius Ferraro, Sandra Miller, En Crespo and colleagues, with an educational alyssa from [employer]. Review of Systems Const All systems reviewed & are unremarkable except as noted in HPI and below Reports no additional complaints Eyes Reports no additional complaints ENT Reports no additional complaints Card Reports no additional complaints GI Reports no additional complaints Reports no additional complaints Physical exam (Primary Care) Vital Signs: Last Vital Signs Pulse 100 06/09/23 12:55 BP 108/66 06/09/23 12:55 Pulse Ox 100 06/09/23 12:55 Oxygen Delivery Method Room Air 06/09/23 12:55 BMI result Body Mass Index 25.6 Tobacco/Smoking Status: Tobacco use Status Tobacco use date assessed 05/19/23 06/09/23 12:57 Patient Tobacco Use Status Never used Tobacco 06/09/23 12:57 e-Cigarette/Vaping Use Never Used 06/09/23 12:57 Thrive Assessment: Date of Thrive Assessment Date Thrive assessed 05/27/23 06/09/23 12:57 Const General: no acute distress Resp Effort & Inspection: normal respiratory effort Auscultation: clear to auscultation bilaterally Cardio Rhythm: regular rhythm Heart sounds: S1 normal heart sound present and S2 normal heart sound present Extrem Other: tenderness kimberly in calves, no swelling, warmth General: Yes no clubbing, cyanosis or edema Assessment and Plan Assessment & Plan (1) Leg pain, bilateral: Code(s): M79.604 - Pain in right leg; M79.605 - Pain in left leg Plan: check US to r/o DVT Orders: Orders US venous duplex LE BI Today M79.604 - Pain in right leg, M79.605 - Pain in left leg Medications: Discontinued atovaquone (Mepron) Discontinued Reason: Doctor's Order 1,500 mg (10 mL) PO DAILY 7 days 70 mL 0RF azithromycin Discontinued Reason: Doctor's Order 250 mg PO DAILY 7 days 7 tabs 0RF insulin glargine U-300 conc 11 units (0.0367 mL) subcut DAILY 30 days 1.101 mL 6RF E10.9 - Type 1 diabetes mellitus without complications Coding Level of Care Code Est Pt Level 3 (00670) Diagnoses Leg pain, bilateral M79.604; M79.605
== END 2023-06-09 15:28 | disposition home or self-care (01) ==
PROVIDERS: PCP Internal Medicine; Visit Provider Internal Medicine
DX: M79.604 Pain in right leg (principal); M79.605 Pain in left leg
CPT/HCPCS: 99213

== ENCOUNTER 2023-06-09 13:49 | Outpatient (REF) | payer OTHER, SELFPAY ==
--- NOTE | ~2023-06-09 | US_ITS ---
EXAMINATION: US VENOUS ULTRASOUND WITH DOPPLER LOWER EXTREMITY, BILATERAL CLINICAL INFORMATION: Pain in bilateral legs COMPARISON: None available. TECHNIQUE: Ultrasound of the deep veins is performed from the hip to the calf with compression sonography and color and pulse Doppler assessment. Spectral analysis with color-flow imaging is performed. FINDINGS: RIGHT: There is normal venous compression and respiratory variation and augmented flow. The visualized common femoral vein, superficial femoral vein, profunda femoral vein, popliteal vein, and the trifurcation region shows no evidence of deep venous thrombosis. There is no significant popliteal fossa cyst. LEFT: There is normal compression and flow seen in the left common femoral and the profunda. There is thrombus visualized within the mid left superficial femoral vein. The distal superficial femoral vein is patent. The, popliteal, and the peroneal veins are patent. There is thrombus visualized in the mid to distal posterior tibial vein. There is no significant popliteal fossa cyst. If the patient's symptoms persist, followup ultrasound in 5 days 7 days might be of value to exclude proximal propagation from a non-visualized calf vein. US/US venous duplex LE BI IMPRESSION: 1. No DVT demonstrated in the right lower extremity. 2. There is thrombus visualized in the mid left superficial femoral vein and mid to distal posterior tibial vein. 3. Preliminary results were called by electrical service technician to Dr. Briceño at 1435 on 06/09/2023.
[2023-06-10 13:08] LABS: Cardiolipin IgG Ab <2.0 GPL-U/mL; Cardiolipin IgM Ab <2.0 MPL-U/mL
[2023-06-12 07:28] LABS: PTT (LAC) Screen 26 sec (<=40)
[2023-06-12 22:24] LABS: Anti-Thrombin III Activity 135 % normal (80-135); Protein C Activity 95 % normal (70-180); Protein S Activity rflx Tot&Fr 70 % normal (60-140)
== END 2023-06-09 13:50 | disposition home or self-care (01) ==
LOC: HO.LAB 13:49
PROVIDERS: PCP Internal Medicine; Visit Provider Internal Medicine
DX: M79.604 Pain in right leg (principal); M79.605 Pain in left leg; I82.412 Acute embolism and thrombosis of left femoral vein
CPT/HCPCS: 36415; 85300; 85302; 85303; 85306; 85597; 85598; 85613; 85670; 85730; 86147; 93970

== ENCOUNTER 2023-06-24 15:10 | Outpatient (AMB) | payer OTHER, SELFPAY ==
--- NOTE | 2023-06-24 15:11 | MHC.OFFVIS ---
Intake Vital Signs 06/24/23 15:12 Height 5 ft 2 in Weight 137 lb 2.04 oz BMI 25.1 BP 118/82 Blood Pressure Location Rt brachial Position Standing Pulse 80 Pulse Source Pulse Oximeter Temp 98.1 F Temp Source Skin Pulse Oximetry (%) 99 Oxygen Delivery Method Room Air Intake Visit Reasons: elev lab/ext 4378 Intake Note: New patient here for elevated labs. Concerned for lupus. Prior rheum patient, our office. 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 Patient was diagnosed with Crohn's colitis since age 16. She has been on multiple medications including sulfasalazine, Asacol, Imuran, Humira and most recently she was started on Stelara about 2 years ago. She states that she is the best she has been since Stelara was started with regards to her Crohn's. She also has history of Raynaud's, this has been ongoing for the last 5 years. She had bilateral L2 sympathetic blocks by Pain Management she according to patient was not helpful. She states that she gets Raynaud's episode in her fingertips and toes. They turn whitish then bluish purple. She denies ever getting wounds on her fingers or toe tips from Raynaud's. Never had to take any medication for Raynaud's. Early this month patient was admitted to the hospital with fevers, she was eventually found to have CMV infection and she was treated with antiviral so. 10-14 days after discharge she presented to the ED with left lower extremity DVT. She is currently on Eliquis for that. Patient states that she continues to get diffuse joint pain. There is no significant joint swelling. Denies any skin rashes. 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), managed as type 1 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 Normal pelvic exam Other specified mononeuropathies Pituitary adenoma Postlaminectomy syndrome of lumbar region Scleroderma Spondylosis of lumbar region without myelopathy or radiculopathy Vitamin D deficiency Surgical History H/O tooth extraction History of hemilaminectomy History of root canal procedure Hx of colonoscopy Family History Mother Tongue cancer Father Type 2 diabetes mellitus Retinopathy Neuropathy Angiopathy Blindness Renal failure Hypertension Cataract Skin cancer Paternal Uncle Substance use disorder Social History Household Members: Spouse and Children Household Members Other:: , 2 sons (11. 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 [employer] Cognitive needs: No Hearing needs: No Vision needs: Yes Female Reproductive History Menstrual Total pregnancies: 2 Review of Systems Const Reports fatigue, Reports headache(s), Reports weakness and Reports weight gain Eyes Reports blurry vision ENT Reports dry mouth and Reports headache(s) Musc Reports arthralgias, Reports muscle weakness and Reports stiffness Skin/Breast Reports unusual bruising Neuro Reports headache(s) and Reports weakness Psych Reports anxiety and Reports depression Endo Reports fatigue Physical Exam Vital Signs: Last Vital Signs Temp 98.1 F 06/24/23 15:12 Pulse 80 06/24/23 15:12 BP 118/82 06/24/23 15:12 Pulse Ox 99 06/24/23 15:12 Oxygen Delivery Method Room Air 06/24/23 15:12 BMI result Body Mass Index 25.1 Const General: cooperative, healthy appearing and comfortable Nutritional Appearance: average body habitus Orientation/consciousness: patient oriented x3 Limitations: no limitations HEENT Head: Yes normocephalic and Yes atraumatic Mouth: moist mucous membranes Resp Effort & Inspection: normal respiratory effort and able to speak in complete sentences Auscultation: clear to auscultation bilaterally Cardio Rate: regular rate Rhythm: regular rhythm Skin General skin exam: no rashes or lesions noted Neuro General: patient oriented x3 Extrem Other: No active synovitis Normal nailfold capillaroscopy Normal range of motion of hands, elbows, shoulders without pain Negative Fabere test bilaterally Mya test 10-15 cm Results Reviewed Results Reviewed: Labs since 2017 CELINA by IFA/RF/CCP/SSA/SSB/cabrera/ATTENDING ANESTHESIOLOGIST/DsDNA/C3/C4/HLA b27 all negative/normal Assessment & Plan Assessment & Plan (1) Raynaud's disease: Code(s): I73.00 - Raynaud's syndrome without gangrene Plan: This is a 42-year-old female with past medical history of Crohn's colitis diagnosed at age 17, who failed multiple medicines including Asacol, sulfasalazine, Imuran, Humira and currently doing fairly well on Stelara who presents for evaluation of diffuse pain. Also has history of Raynaud's diagnosed around 5 years ago. She has s/p bilateral L2 sympathetic blocks, without much improvement per patient. Will check scleroderma antibodies (2) DVT (deep venous thrombosis): Code(s): I82.409 - Acute embolism and thrombosis of unspecified deep veins of unspecified lower extremity Qualifiers: DVT location: lower extremity Affected thrombotic vein of extremity: tibial Chronicity: acute Laterality: left Qualified Code(s): I82.442 - Acute embolism and thrombosis of left tibial vein Plan: Patient was admitted to the hospital a month ago with fevers, she was found to have CMV infection which improved with antivirals, 10-14 days later she presented with left lower extremity DVT. She is currently on Eliquis. Will check antiphospholipid antibodies 12 weeks after her DVT. Advised patient to follow-up with Dr. Klein (3) Polyarthralgia: Code(s): M25.50 - Pain in unspecified joint Plan: Longstanding, comprehensive serology has been unremarkable in the past. Will check scleroderma antibodies. Plan I spent 65 minutes reviewing patient's chart, evaluating patient, ordering diagnostic workup, counseling patient and documenting in the chart Orders: Orders Beta-2 Glycoprotein Antibody 10 Weeks I82.409 - Acute embolism and thrombosis of unspecified deep veins of unspecified lower extremity Cardiolipin Antibodies 10 Weeks I82.409 - Acute embolism and thrombosis of unspecified deep veins of unspecified lower extremity Scleroderma 12 Panel Today M34.9 - Systemic sclerosis, unspecified Comprehensive Met. Panel 10 Weeks I82.409 - Acute embolism and thrombosis of unspecified deep veins of unspecified lower extremity Complete Blood Count Auto Diff 10 Weeks I82.409 - Acute embolism and thrombosis of unspecified deep veins of unspecified lower extremity Medications: Discontinued insulin glargine U-300 conc 11 units (0.0367 mL) subcut DAILY 30 days 1.101 mL 6RF E10.9 - Type 1 diabetes mellitus without complications Coding Level of Care Code New Pt Level 5 (78992) Diagnoses Raynaud's disease I73.00 DVT (deep venous thrombosis) I82.442 DVT location: lower extremity Affected thrombotic vein of extremity: tibial Chronicity: acute Laterality: left Polyarthralgia M25.50
[2023-06-24 15:12] VITALS: BP 118/82; PULSE 80; TEMP 36.7; O2SAT 99; BMI 25.1
== END 2023-06-24 15:58 | disposition home or self-care (01) ==
PROVIDERS: PCP Internal Medicine; Referring Provider Physician Assistant Medical; Visit Provider Student in an Organized Health Care Education/Training Program
DX: M13.0 Polyarthritis, unspecified (principal); I73.00 Raynaud's syndrome without gangrene; I82.442 Acute embolism and thrombosis of left tibial vein
CPT/HCPCS: 99205

== ENCOUNTER → 2023-06-24 15:10 | Outpatient (BNVA) | payer OTHER, SELFPAY | PROVIDERS: PCP Internal Medicine; Referring Provider Physician Assistant Medical; Visit Provider Student in an Organized Health Care Education/Training Program ==

== ENCOUNTER → 2023-08-15 10:15 | Outpatient (BNV) | payer OTHER, SELFPAY | PROVIDERS: PCP Internal Medicine; Visit Provider Radiology Diagnostic Radiology | DX: Z12.31 Encounter for screening mammogram for malignant neoplasm of breast (principal) | CPT/HCPCS: 77063; 77067 ==

== ENCOUNTER 2023-08-15 10:19 | Outpatient (REF) | payer OTHER, SELFPAY | END 2023-08-15 10:20 | disposition home or self-care (01) | LOC: HO.MAMMO 10:19 | PROVIDERS: PCP Internal Medicine; Visit Provider Internal Medicine | DX: Z12.31 Encounter for screening mammogram for malignant neoplasm of breast (principal) | CPT/HCPCS: 77063; 77067 ==

== ENCOUNTER 2023-09-24 15:43 | Outpatient (AMB) | payer OTHER, SELFPAY ==
[2023-09-24 15:45] VITALS: BP 124/82; PULSE 82; BMI 25.6
--- NOTE | 2023-09-24 15:45 | MHC.OFFVIS ---
Intake Vital Signs 09/24/23 15:45 Height 5 ft 2 in Weight 139 lb 12.369 oz BMI 25.6 BP 124/82 Blood Pressure Location Lt brachial Position Sitting Pulse 82 Pulse Source Pulse Oximeter Intake Visit Reasons: DM1 Intake Note: Patient presents today to follow up on DMT1. Last Diabetic Eye exam: 06/2023 Last Podiatry Visit: None Random Glucose: 78 mg/dl HgA1C: 6.1% Manager Wound Required: No Accompanied by: Self / Same As Patient Allergies cephalexin Allergy (Unknown, Verified 09/24/23 15:53) RASH Penicillins Allergy (Unknown, Verified 09/24/23 15:53) RASH Sulfa (Sulfonamide Antibiotics) Allergy (Unknown, Verified 09/24/23 15:53) RASH clindamycin Adverse Reaction (Mild, Verified 09/24/23 15:53) Itching HPI HPI Comments History of Present Illness Details Patient is 43-year-old female with DM type 1/KAZ diagnosed 2014, who presents for management of diabetes. She was found to have + RODOLFO 65 antibodies in 2010 when she was trying to donate a kidney to her father. 2011 RODOLFO was 18.5 and in 2014 was 8.9, negative islet cell antibodies, she had detectable C-peptide and insulin level. Past medical history: DM1 (KAZ), 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, Chrone's disease, Raynaud's diesease Micro and macrovascular complications: denies Diabetes medications: Toujeo 6 units, Humalog Insulin to carb ratio 1u:15g and correction of 1 unit for every 50mg/dl above 150mg/dl). Not using Humalog Not taking insulin in mos Continuous glucose monitoring: In the last 2 weeks average blood glucose is 142 . <1 % her last than 70 mg/dL. 78% in target range of 70-180. 21% blood glucose high over 180. <1% over 250. Coefficient variation 31%. C GM is active 100% of the time. 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: been awhile Produce Clerk: denies Ophthalmology evaluation: Other specialists: Stucco Plasterer Laboratory Tests 05/29/19 08/21/20 07/12/21 11:10 09:40 10:21 Hgb A1c (Clinic) 5.8 C-Peptide 0.65 L Insulin Autoantibo dy <0.4 PFSH Medical History (Updated 09/24/23 @ 16:31 by Luis Viera MD) Pituitary abnormality Scleroderma Hx of sigmoidoscopy Pituitary adenoma Vitamin D deficiency Iron deficiency Normal pelvic exam Annual physical exam 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), managed as type 1 Elevated cholesterol Anxiety Crohn's disease Postlaminectomy syndrome of lumbar region Diabetes type 1, controlled Chronic pain syndrome 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 Absence of acromegalic features. Neck exam reveals nl size thyroid about 15 gms. No thyroid nodules palpable. No carotid bruits present. Lungs CTA. Heart S1 S2, Reg R/R. No M/R/ G. Skin exam reveals absence of vitiligo or acanthosis nigricans. Abdominal exam reveals Soft NT/ND with NA BS. No organomegaly present. Extrem Other: Visual exam of foot performed. No ulcerations or open lesions. No onchomycosis, no callouses.Pulses 2 + distally. Sensation intact to monofilament exam. 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 Plan is to continue the current regimen. Will have patient follow up with certified adapted physical educator to discuss initiation of Omnipod. Patient might benefit from using basal only pump to avoid hypoglycemia and excessive insulin causing weight gain (2) Pituitary abnormality: Code(s): E23.7 - Disorder of pituitary gland, unspecified Plan: See below (3) Pituitary adenoma: Code(s): D35.2 - Benign neoplasm of pituitary gland Plan: non -secretory. 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
[2023-09-24 16:02] LABS: Glucose, Whole Blood 78 mg/dL (60-115)
== END 2023-09-24 16:37 | disposition home or self-care (01) ==
PROVIDERS: PCP Internal Medicine; Visit Provider Internal Medicine Endocrinology, Diabetes & Metabolism
DX: E13.9 Other specified diabetes mellitus without complications (principal); E23.7 Disorder of pituitary gland, unspecified; D35.2 Benign neoplasm of pituitary gland
CPT/HCPCS: 99214

== ENCOUNTER → 2023-09-24 15:43 | Outpatient (BNVA) | payer OTHER, SELFPAY | PROVIDERS: PCP Internal Medicine; Visit Provider Internal Medicine Endocrinology, Diabetes & Metabolism | DX: E13.40 Other specified diabetes mellitus with diabetic neuropathy, unspecified (principal); E23.7 Disorder of pituitary gland, unspecified; D35.2 Benign neoplasm of pituitary gland | CPT/HCPCS: 82947; 83036 ==

== ENCOUNTER 2023-09-28 12:51 | Outpatient (AMB) | payer OTHER, SELFPAY ==
[2023-09-28 13:06] VITALS: BP 108/64; PULSE 78; O2SAT 98; BMI 25.2
--- NOTE | 2023-09-28 13:06 | A.OFFPC_ITS ---
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: No Accompanied by: Self / Same As Patient Allergies cephalexin Allergy (Unknown, Verified 09/28/23 13:07) RASH Penicillins Allergy (Unknown, Verified 09/28/23 13:07) RASH Sulfa (Sulfonamide Antibiotics) Allergy (Unknown, Verified 09/28/23 13:07) RASH clindamycin Adverse Reaction (Mild, Verified 09/28/23 13:07) Itching Medication List - Last Reconciled 09/28/23 by Emi Briceño MD apixaban 5 mg PO BID ascorbate calcium (vitamin C) 500 mg PO DAILY rlxzxzk-xlojvjgljvawk-lwldjbej 250-250-65 mg (Excedrin Migraine) 1 tab PO DAILY PRN atorvastatin 40 mg PO DAILY azathioprine 100 mg PO DAILY blood-glucose meter,continuous (Dexcom G7 Electrical Lineman) As directed blood-glucose sensor (Dexcom G7 Sensor device) TEST DIRECTED. CHANGE EVERY 10 DAYS cholecalciferol (vitamin D3) 25 mcg PO DAILY ferrous sulfate 325 mg PO BID gabapentin 600 mg PO TID 30 days gabapentin 300 mg PO TID hyoscyamine sulfate ER 0.375 mg PO DAILY insulin glargine U-300 conc (Toujeo SoloStar U-300 Insulin) 6 units subcut DAILY insulin lispro 1 sliding scale dose subcut TIDAC linaclotide (Linzess) 290 mcg PO DAILY loratadine 10 mg PO DAILY pantoprazole 40 mg PO BEDTIME PRN paroxetine HCl ER 25 mg PO DAILY ustekinumab (Stelara) 90 mg subcut Q8W Tobacco use date assessed: 09/28/23 Dental Screening Dental Screen Date: 09/28/23 Did you have a dental visit in the last 12 months?: Yes Did you have a dental problem in the last 6 months where you did not have access to dental care?: No Was dental information given to patient?: Patient has dentist HPI 6 month follow up HPI Details Patient presents for the follow-up of hyperlipidemia, diabetes mainly diet controlled, patient has not had to use insulin for 2 months, active Crohn's disease with intermittent rectal bleeding and patient follows up with GI. Chronic depression is stable on Paxil. 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 Luis Ferraro, Sandra Miller, En Crespo and colleagues, with an educational alyssa from [facility]. Review of Systems Const All systems reviewed & are unremarkable except as noted in HPI and below Reports no additional complaints Eyes Reports no additional complaints ENT Reports no additional complaints Card Reports no additional complaints Resp Reports no additional complaints GI Reports no additional complaints Reports no additional complaints Physical exam (Primary Care) Vital Signs: Last Vital Signs Pulse 78 09/28/23 13:06 BP 108/64 09/28/23 13:06 Pulse Ox 98 09/28/23 13:06 BMI result Body Mass Index 25.2 Tobacco/Smoking Status: Tobacco use Status Tobacco use date assessed 09/28/23 09/28/23 13:08 Patient Tobacco Use Status Never used Tobacco 09/28/23 13:08 e-Cigarette/Vaping Use Never Used 09/28/23 13:08 Thrive Assessment: Date of Thrive Assessment Date Thrive assessed 05/27/23 09/28/23 13:08 Const General: no acute distress HENMT Head: Yes normal to inspection Ears: hearing grossly normal bilaterally Throat: Yes posterior oropharynx normal Neck Neck: Yes supple Resp Effort & Inspection: normal respiratory effort Auscultation: clear to auscultation bilaterally Cardio Rhythm: regular rhythm Heart sounds: S1 normal heart sound present and S2 normal heart sound present GI Inspection: Yes normal to inspection Palpation (GI): Soft to palpation Percussion: Yes normal to percussion Auscultation: normal bowel sounds Assessment and Plan Assessment & Plan (1) DVT (deep venous thrombosis): Comment: on Eliquis Code(s): I82.409 - Acute embolism and thrombosis of unspecified deep veins of unspecified lower extremity Qualifiers: DVT location: lower extremity Affected thrombotic vein of extremity: tibial Chronicity: acute Laterality: left Qualified Code(s): I82.442 - Acute embolism and thrombosis of left tibial vein Plan: Patient will follow-up with machine wiper to discuss continuing Eliquis and workup for hypercoagulable state (2) Anemia: Comment: Iron def due to GI bleed (Crohn dx) Code(s): D64.9 - Anemia, unspecified Plan: Continue iron supplement and monitor CBC follow-up with Hematology (3) 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: Code(s): E78.5 - Hyperlipidemia, unspecified Plan: Continue statin (4) Diabetes type 1, controlled: Comment: f/u [facility] [place] Endo Code(s): E10.9 - Type 1 diabetes mellitus without complications Plan: Patient monitors her fasting blood glucose at least 3 times a day and will follow-up with endocrinology Orders: Orders Comprehensive [place]. Panel Fast 6 Months D64.9 - Anemia, unspecified, E10.9 - Type 1 diabetes mellitus without complications, Z00.00 - Encounter for general adult medical examination without abnormal findings Complete Blood Count Auto Diff 6 Months D64.9 - Anemia, unspecified, E10.9 - Type 1 diabetes mellitus without complications, Z00.00 - Encounter for general adult medical examination without abnormal findings Lipid Panel 6 Months D64.9 - Anemia, unspecified, E10.9 - Type 1 diabetes mellitus without complications, Z00.00 - Encounter for general adult medical examination without abnormal findings Hemoglobin A1c 6 Months D64.9 - Anemia, unspecified, E10.9 - Type 1 diabetes mellitus without complications, Z00.00 - Encounter for general adult medical examination without abnormal findings Microalbumin, Random (w Creat) 6 Months D64.9 - Anemia, unspecified, E10.9 - Type 1 diabetes mellitus without complications, Z00.00 - Encounter for general adult medical examination without abnormal findings IRON PROFILE 6 Months D64.9 - Anemia, unspecified Medications: Changed From gabapentin 600 mg PO TID 30 days 90 tabs 8RF To gabapentin 600 mg PO TID 270 tabs 2RF 90 days Coding Level of Care Code Est Pt Level 4 (00690) Diagnoses Acute deep vein thrombosis (DVT) of tibial vein of left lower extremity I82.442 DVT location: lower extremity Affected thrombotic vein of extremity: tibial Chronicity: acute Laterality: left Anemia D64.9 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 E78.5 Diabetes type 1, controlled E10.9
== END 2023-09-28 15:26 | disposition home or self-care (01) ==
PROVIDERS: PCP Internal Medicine; Visit Provider Internal Medicine
DX: I82.442 Acute embolism and thrombosis of left tibial vein (principal); D64.9 Anemia, unspecified; E78.5 Hyperlipidemia, unspecified; E10.9 Type 1 diabetes mellitus without complications
CPT/HCPCS: 99214

== ENCOUNTER 2023-09-28 14:09 | Outpatient (REF) | payer OTHER, SELFPAY ==
[2023-09-28 15:57] LABS: MANUAL DIFF FLAG NO
[2023-09-28 16:26] LABS: Basophils Percent Auto 0.4 % (0-2); Eosinophils Absolute Auto 0.1 X10*3/uL (0.0-0.4); Eosinophils Percent Auto 2.1 % (0-4); Hematocrit 38.6 % (37.0-47.0); Hemoglobin 12.7 g/dl (12.0-16.0); Imm Gran Abs Auto 0.01 X10*3/uL (0.00-0.03); Imm Gran Pct Auto 0.2 % (0.0-0.4); Lymphocytes Absolute Auto 1.4 X10*3/uL (1.2-4.9); Lymphocytes Percent Auto 24.4 % (20-40); Mean Corpuscular HGB Conc 32.9 g/dl (31.0-35.0); Mean Corpuscular Hemoglobin 32.2 pg (27.0-33.0); Mean Corpuscular Volume 97.7 fL (80.0-98.0); Mean Platelet Volume 10.8 fL (9.4-12.3); Monocytes Absolute Auto 0.4 X10*3/uL (0.1-1.2); Monocytes Percent Auto 6.9 % (2-11); Neutrophils Absolute Auto 3.7 x10*3/uL (2.0-8.3); Platelet Count 386 X10*3/uL (160-400); Red Blood Count 3.95 X10*6/uL (4.20-5.50); Red Cell Distribution Width 12.8 % (11.0-16.0); White Blood Count 5.7 X10*3/uL (4.8-10.8)
[2023-09-28 16:34] LABS: Alanine Aminotransferase 19 U/L (0-31); Albumin Level 4.2 g/dL (3.5-5.0); Alkaline Phosphatase 87 U/L (39-117); Anion Gap 12 (12-20); Aspartate Amino Transferase 26 U/L (5-31); Bilirubin Total 0.3 mg/dL (0.0-1.0); Blood Urea Nitrogen 20 mg/dL (9-16); Calcium 9.4 mg/dL (8.4-10.2); Carbon Dioxide 26 mmol/L (22-29); Chloride 109 mmol/L (96-108); Estimated Glomerular Filt Rate > 60; Glucose Random 125 mg/dL (60-115); Potassium 3.7 mmol/L (3.3-5.1); Sodium 143 mmol/L (135-145); Total Protein 7.7 g/dL (6.5-8.0)
[2023-09-29 13:58] LABS: Cardiolipin IgG Ab <2.0 GPL-U/mL; Cardiolipin IgM Ab <2.0 MPL-U/mL
[2023-10-02 03:18] LABS: Beta-2 Glycoprotein IgA <2.0 U/mL (<20.0); Beta-2 Glycoprotein IgG <2.0 U/mL (<20.0); Beta-2 Glycoprotein IgM <2.0 U/mL (<20.0)
== END 2023-09-28 14:10 | disposition home or self-care (01) ==
LOC: HO.HMGCLDS 14:09
PROVIDERS: Student in an Organized Health Care Education/Training Program; Absent Provider Internal Medicine Endocrinology, Diabetes & Metabolism; PCP Internal Medicine; Referring Provider Dermatology; Visit Provider Internal Medicine Medical Oncology
DX: I82.409 Acute embolism and thrombosis of unspecified deep veins of unspecified lower extremity (principal); L70.0 Acne vulgaris; L81.4 Other melanin hyperpigmentation; L82.1 Other seborrheic keratosis; D22.9 Melanocytic nevi, unspecified; D18.01 Hemangioma of skin and subcutaneous tissue; L72.0 Epidermal cyst; Z80.8 Family history of malignant neoplasm of other organs or systems
CPT/HCPCS: 36415; 80053; 85025; 86146; 86147

== ENCOUNTER 2023-10-08 17:18 | Outpatient (REF) | payer OTHER, SELFPAY ==
[2023-10-08 17:37] LABS: MANUAL DIFF FLAG NO
[2023-10-08 18:14] LABS: Basophils Percent Auto 0.5 % (0-2); Eosinophils Absolute Auto 0.2 X10*3/uL (0.0-0.4); Eosinophils Percent Auto 2.8 % (0-4); Hematocrit 36.6 % (37.0-47.0); Hemoglobin 12.4 g/dl (12.0-16.0); Imm Gran Abs Auto 0.01 X10*3/uL (0.00-0.03); Imm Gran Pct Auto 0.2 % (0.0-0.4); Lymphocytes Absolute Auto 2.1 X10*3/uL (1.2-4.9); Lymphocytes Percent Auto 34.5 % (20-40); Mean Corpuscular HGB Conc 33.9 g/dl (31.0-35.0); Mean Corpuscular Hemoglobin 33.1 pg (27.0-33.0); Mean Corpuscular Volume 97.6 fL (80.0-98.0); Mean Platelet Volume 11.3 fL (9.4-12.3); Monocytes Absolute Auto 0.6 X10*3/uL (0.1-1.2); Monocytes Percent Auto 9.8 % (2-11); Neutrophils Absolute Auto 3.2 x10*3/uL (2.0-8.3); Neutrophils Percent Auto 52.2 % (45-73); Platelet Count 366 X10*3/uL (160-400); Red Blood Count 3.75 X10*6/uL (4.20-5.50); Red Cell Distribution Width 12.9 % (11.0-16.0); White Blood Count 6.1 X10*3/uL (4.8-10.8)
[2023-10-08 18:16] LABS: Alanine Aminotransferase 22 U/L (0-31); Albumin Level 4.3 g/dL (3.5-5.0); Alkaline Phosphatase 80 U/L (39-117); Anion Gap 10 (12-20); Aspartate Amino Transferase 26 U/L (5-31); Bilirubin Total 0.3 mg/dL (0.0-1.0); Blood Urea Nitrogen 21 mg/dL (9-16); Calcium 9.5 mg/dL (8.4-10.2); Carbon Dioxide 28 mmol/L (22-29); Chloride 107 mmol/L (96-108); Estimated Glomerular Filt Rate > 60; Glucose Random 110 mg/dL (60-115); Potassium 3.9 mmol/L (3.3-5.1); Sodium 141 mmol/L (135-145); Total Protein 7.6 g/dL (6.5-8.0)
[2023-10-08 18:37] LABS: D Dimer High Sensitivity < 150 NG/ML
[2023-10-13 10:03] LABS: Cardiolipin IgG Ab <2.0 GPL-U/mL; Cardiolipin IgM Ab <2.0 MPL-U/mL
[2023-10-14 14:48] LABS: Centromere Protein A Ab <11 SI (<11); Centromere Protein B Ab <11 SI (<11); Fibrillarin Ab <11 SI (<11); PM SCL 100 Ab <11 SI (<11); PM SCL 75 Ab <11 SI (<11); RNA Polymerase III RP11 Ab <11 SI (<11); RNA Polymerase III RP155 Ab <11 SI (<11); SCL-70 Extractable Nuclear Ab <11 SI (<11); Th-To Ab <11 SI (<11); U1 SNRNP RNP 70KD <11 SI (<11); U1 SNRNP RNP A <11 SI (<11); U1 SNRNP RNP C <11 SI (<11)
== END 2023-10-08 17:19 | disposition home or self-care (01) ==
LOC: HO.LAB 17:18
PROVIDERS: Internal Medicine Medical Oncology; PCP Internal Medicine; Visit Provider Student in an Organized Health Care Education/Training Program
DX: D64.9 Anemia, unspecified (principal); M34.9 Systemic sclerosis, unspecified
CPT/HCPCS: 36415; 80053; 84182; 85025; 85379; 86147; 86235

== ENCOUNTER 2023-10-28 09:37 | Outpatient (AMB) | payer OTHER, SELFPAY ==
--- NOTE | 2023-10-28 10:14 | MHC.AMDMED ---
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 Required: No Accompanied by: Self / Same As Patient Allergies cephalexin Allergy (Unknown, Verified 09/28/23 13:07) RASH Penicillins Allergy (Unknown, Verified 09/28/23 13:07) RASH Sulfa (Sulfonamide Antibiotics) Allergy (Unknown, Verified 09/28/23 13:07) RASH clindamycin Adverse Reaction (Mild, Verified 09/28/23 13:07) Itching HPI Comprehensive Diabetes Asmnt Most Recent Diabetes Results: Creatinine 0.72 mg/dL (0.5-1.4) 10/08/23 Blood Urea Nitrogen 21 mg/dL (9-16) H 10/08/23 Sodium 141 mmol/L (135-145) 10/08/23 Potassium 3.9 mmol/L (3.3-5.1) 10/08/23 Chloride 107 mmol/L (96-108) 10/08/23 Carbon Dioxide 28 mmol/L (22-29) 10/08/23 Calcium 9.5 mg/dL (8.4-10.2) 10/08/23 AST 26 U/L (5-31) 10/08/23 ALT 22 U/L (0-31) 10/08/23 Total Protein 7.6 g/dL (6.5-8.0) 10/08/23 Albumin 4.3 g/dL (3.5-5.0) 10/08/23 [facility] Medical History (Updated 10/07/23 @ 11:31 by Britton Gonzales MD) Pituitary abnormality Hx of sigmoidoscopy Pituitary adenoma Vitamin D deficiency Iron deficiency Normal pelvic exam Annual physical exam 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 insulin 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), managed as type 1 Elevated cholesterol Anxiety Crohn's disease Postlaminectomy syndrome of lumbar region Diabetes type 1, controlled Chronic pain syndrome 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 Insulin to carb ratio, and insulin sensitivity factor calculated based on rule of 450 for insulin to carb ratio, and rule of 1500 for insulin sensitivity factor. Instructed patient on the importance of accurate calculation of the amount of carbs per meal Reviewed how to calculate mealtime bolus with insulin to carb ratio Reviewed how to calculate correction dose with insulin sensitivity factor Patient's TDD estimate 36 units Insulin to Carbohydrate ratio:1:13 Sensitivity factor: 1:40 Pt reports that desired blood glucose target is 120 mg/dL Pt able to calculated needed insulin based on estimated carbohydrate content Pt demonstrated at visit how to calculate mealtime insulin bolus and correction bolus. Instructed patient that there may need to be adjustment to insulin to carb ratio and sensitivity factor based on blood glucose trends. 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
== END 2023-10-28 10:18 | disposition home or self-care (01) ==
PROVIDERS: PCP Internal Medicine; Visit Provider Registered Nurse Diabetes Educator
DX: E13.9 Other specified diabetes mellitus without complications (principal)

== ENCOUNTER → 2023-10-28 09:37 | Outpatient (BNVA) | payer OTHER, SELFPAY | PROVIDERS: PCP Internal Medicine; Visit Provider Registered Nurse Diabetes Educator | DX: E13.9 Other specified diabetes mellitus without complications (principal) | CPT/HCPCS: 99211 ==

== ENCOUNTER 2023-10-29 12:33 | Outpatient (REF) | payer OTHER, SELFPAY ==
[2023-10-29 13:07] LABS: MANUAL DIFF FLAG NO
[2023-10-29 13:35] LABS: Basophils Percent Auto 0.3 % (0-2); Hematocrit 39.6 % (37.0-47.0); Hemoglobin 13.3 g/dl (12.0-16.0); Imm Gran Abs Auto 0.11 X10*3/uL (0.00-0.03); Imm Gran Pct Auto 1.5 % (0.0-0.4); Lymphocytes Absolute Auto 0.8 X10*3/uL (1.2-4.9); Lymphocytes Percent Auto 10.8 % (20-40); Mean Corpuscular HGB Conc 33.6 g/dl (31.0-35.0); Mean Corpuscular Hemoglobin 33.2 pg (27.0-33.0); Mean Corpuscular Volume 98.8 fL (80.0-98.0); Mean Platelet Volume 10.2 fL (9.4-12.3); Monocytes Absolute Auto 0.1 X10*3/uL (0.1-1.2); Monocytes Percent Auto 1.5 % (2-11); Neutrophils Absolute Auto 6.5 x10*3/uL (2.0-8.3); Neutrophils Percent Auto 85.9 % (45-73); Platelet Count 467 X10*3/uL (160-400); Red Blood Count 4.01 X10*6/uL (4.20-5.50); Red Cell Distribution Width 14.5 % (11.0-16.0); White Blood Count 7.6 X10*3/uL (4.8-10.8)
[2023-10-29 14:46] LABS: Alanine Aminotransferase 22 U/L (0-31); Albumin Level 4.3 g/dL (3.5-5.0); Alkaline Phosphatase 68 U/L (39-117); Aspartate Amino Transferase 16 U/L (5-31); Bilirubin Direct 0.2 mg/dL (0.0-0.5); Bilirubin Total 0.4 mg/dL (0.0-1.0); Blood Urea Nitrogen 23 mg/dL (9-16); Estimated Glomerular Filt Rate > 60; Total Protein 7.3 g/dL (6.5-8.0)
[2023-11-04 15:19] LABS: 6-MMPN <500 (<5700); 6-TGN 253 (235-400)
== END 2023-10-29 12:34 | disposition home or self-care (01) ==
LOC: HO.CT 12:33
PROVIDERS: Visit Provider Internal Medicine Gastroenterology
DX: K50.111 Crohn's disease of large intestine with rectal bleeding (principal)
CPT/HCPCS: 36415; 74177; 80076; 80299; 82397; 82565; 83520; 84520; 85025; 85652; 86141; Q9967

== ENCOUNTER 2023-10-29 16:08 | Outpatient (AMB) | payer OTHER, SELFPAY ==
--- NOTE | 2023-10-29 16:13 | MHC.OFFVIS ---
Intake Vital Signs 10/29/23 16:14 Height 5 ft 2 in Weight 135 lb 12.876 oz BMI 24.8 BP 104/72 Blood Pressure Location Rt brachial Position Sitting Respiration 15 Pulse 85 Pulse Source Pulse Oximeter Temp 97.9 F Temp Source Tympanic Pulse Oximetry (%) 98 Oxygen Delivery Method Room Air Intake Visit Reasons: Crohn's colitis Allergies cephalexin Allergy (Unknown, Verified 10/29/23 16:17) RASH Penicillins Allergy (Unknown, Verified 10/29/23 16:17) RASH Sulfa (Sulfonamide Antibiotics) Allergy (Unknown, Verified 10/29/23 16:17) RASH clindamycin Adverse Reaction (Mild, Verified 10/29/23 16:17) Itching Medication List - Last Reconciled 10/29/23 by Giulia Montgomery RN apixaban 5 mg PO BID ascorbate calcium (vitamin C) 500 mg PO DAILY ezxdwzb-xojezlulwcqbx-ptuxjhtq 250-250-65 mg (Excedrin Migraine) 1 tab PO DAILY PRN atorvastatin 40 mg PO DAILY azathioprine 100 mg PO DAILY blood sugar diagnostic (SynapDx Verio test strips) As directed test 3 times a day blood-glucose meter,continuous (Jobzippers G7 Pot Annealer) As directed blood-glucose sensor (Jobzippers G7 Sensor device) USE DIRECTED. CHANGE EVERY 10 DAYS cholecalciferol (vitamin D3) 25 mcg PO DAILY ferrous sulfate 325 mg PO BID fluconazole 50 mg PO DAILY gabapentin 600 mg PO TID 90 days hyoscyamine sulfate ER 0.375 mg PO DAILY insulin glargine U-300 conc (Toujeo SoloStar U-300 Insulin) 16 units subcut DAILY insulin lispro 1 sliding scale dose subcut TIDAC insulin lispro (Humalog U-100 Insulin) Infuse up to 50 units per day via insulin pump subcutaneously; lancets (Paradigm Spineuch Delica Plus Lancet) As directed test 3 times a day linaclotide (Linzess) 290 mcg PO DAILY loratadine 10 mg PO DAILY pantoprazole 40 mg PO BEDTIME PRN paroxetine HCl ER 25 mg PO DAILY ustekinumab (Stelara) 90 mg subcut Q8W HPI HPI Comments History of Present Illness Details Patient returns for follow-up after completion of her blood work. Unfortunately he is currently in a Crohn's flare. She was started on prednisone 40 mg and now tapered down to [address] abdomen with findings suggestive of active colitis. Initial history: This is a 42-year-old female who presents for evaluation of multiple joint pain. Patient was diagnosed with Crohn's colitis since age 16. She has been on multiple medications including sulfasalazine, Asacol, Imuran, Humira and most recently she was started on Stelara about 2 years ago. She states that she is the best she has been since Stelara was started with regards to her Crohn's. She also has history of Raynaud's, this has been ongoing for the last 5 years. She had bilateral L2 sympathetic blocks by Pain Management she according to patient was not helpful. She states that she gets Raynaud's episode in her fingertips and toes. They turn whitish then bluish purple. She denies ever getting wounds on her fingers or toe tips from Raynaud's. Never had to take any medication for Raynaud's. Early this month patient was admitted to the hospital with fevers, she was eventually found to have CMV infection and she was treated with antiviral so. 10-14 days after discharge she presented to the ED with left lower extremity DVT. She is currently on Eliquis for that. Patient states that she continues to get diffuse joint pain. There is no significant joint swelling. Denies any skin rashes. 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 [employer] Cognitive needs: No Hearing needs: No Vision needs: Yes Review of Systems Const Reports fatigue, Reports headache(s), Reports weakness and Reports weight gain ENT Reports dry mouth and Reports headache(s) Musc Reports arthralgias, Reports muscle weakness and Reports stiffness Skin/Breast Reports unusual bruising Neuro Reports headache(s) and Reports weakness Endo Reports fatigue Physical Exam Vital Signs: Last Vital Signs Temp 97.9 F 10/29/23 16:14 Pulse 85 10/29/23 16:14 Resp 15 10/29/23 16:14 BP 104/72 10/29/23 16:14 Pulse Ox 98 10/29/23 16:14 Oxygen Delivery Method Room Air 10/29/23 16:14 BMI result Body Mass Index 24.8 Const General: cooperative, healthy appearing and comfortable Nutritional Appearance: average body habitus Orientation/consciousness: patient oriented x3 Limitations: no limitations HEENT Head: Yes normocephalic and Yes atraumatic Mouth: moist mucous membranes Resp Effort & Inspection: normal respiratory effort and able to speak in complete sentences Skin General skin exam: no rashes or lesions noted Neuro General: patient oriented x3 Extrem Other: No active synovitis Normal nailfold capillaroscopy Normal range of motion of hands, elbows, shoulders without pain Negative Speed's test bilaterally Active resisted wrist extension and resisted wrist flexion test bilaterally Results Reviewed Results Reviewed: Labs since 2017 CELINA by IFA/RF/CCP/SSA/SSB/cabrera/CORPORATE LICENSED BROKER/DsDNA/C3/C4/HLA b27 all negative/normal Assessment & Plan Assessment & Plan (1) Raynaud's disease: Code(s): I73.00 - Raynaud's syndrome without gangrene Qualifiers: Raynaud?s-associated gangrene presence: without gangrene Qualified Code(s): I73.00 - Raynaud's syndrome without gangrene Plan: This is a 43-year-old female with past medical history of Crohn's colitis diagnosed at age 17, who failed multiple medicines including Asacol, sulfasalazine, Imuran, Humira and currently on Stelara who presents for evaluation of diffuse pain. Also has history of Raynaud's diagnosed around 5 years ago. Comprehensive serology for systemic autoimmune rheumatic disease was negative. Scleroderma antibodies are negative. Patient's Raynaud's symptoms are likely primary Raynaud's. Patient does not have prolonged episodes. She does not have digital ulcers, no tapering of her fingertips, and normal nailfold capillaroscopy. Discussed conservative measures for Raynaud's. Patient is currently in a Crohn's colitis flare, restarted on prednisone by her mixer attendant. Follow-up with GI Follow-up with me as needed (2) DVT (deep venous thrombosis): Comment: on Eliquis Code(s): I82.409 - Acute embolism and thrombosis of unspecified deep veins of unspecified lower extremity Qualifiers: DVT location: lower extremity Affected thrombotic vein of extremity: tibial Chronicity: acute Laterality: left Qualified Code(s): I82.442 - Acute embolism and thrombosis of left tibial vein Plan: Patient was admitted to the 04/2023 month ago with fevers, she was found to have CMV infection which improved with antivirals, 10-14 days later she presented with left lower extremity DVT. She is currently on Eliquis. Antiphospholipid antibodies done a few months after DVT episodes were negative. Hypercoagulable workup done by Dr. Klein was negative Plan I spent 25 minutes reviewing patient's chart, evaluating patient, , counseling patient and documenting in the chart Orders: Orders Scleroderma 12 Panel 10/08/23 M34.9 - Systemic sclerosis, unspecified Coding Level of Care Code Est Pt Level 4 (92296) Diagnoses Raynaud's disease without gangrene I73.00 Raynaud?s-associated gangrene presence: without gangrene Acute deep vein thrombosis (DVT) of tibial vein of left lower extremity I82.442 DVT location: lower extremity Affected thrombotic vein of extremity: tibial Chronicity: acute Laterality: left
[2023-10-29 16:14] VITALS: BP 104/72; PULSE 85; RESP 15; TEMP 36.6; O2SAT 98; BMI 24.8
== END 2023-10-29 16:33 | disposition home or self-care (01) ==
PROVIDERS: PCP Internal Medicine; Visit Provider Student in an Organized Health Care Education/Training Program
DX: I73.00 Raynaud's syndrome without gangrene (principal); I82.442 Acute embolism and thrombosis of left tibial vein
CPT/HCPCS: 99214

== ENCOUNTER 2023-10-30 14:56 | Outpatient (REF) | payer OTHER, SELFPAY ==
[2023-11-07 00:19] LABS: Calprotectin, Fecal 659 mcg/g
== END 2023-10-30 14:57 | disposition home or self-care (01) ==
LOC: HO.LNP 14:56
PROVIDERS: Visit Provider Internal Medicine Gastroenterology
DX: K50.111 Crohn's disease of large intestine with rectal bleeding (principal)
CPT/HCPCS: 83993

== ENCOUNTER 2023-11-09 13:48 | Outpatient (REF) | payer OTHER, SELFPAY ==
--- NOTE | ~2023-11-09 | MR_ITS ---
EXAMINATION: MR BRAIN WITH AND WITHOUT CONTRAST CLINICAL INFORMATION: Follow-up pituitary adenoma COMPARISON: MRI brain 05/28/2023 TECHNIQUE: MRI of the brain was obtained using routine sequences before and following administration of intravenous contrast. A total of 6 mL of Gadavist was administered intravenously. FINDINGS: Previously seen hypoenhancing lesion within the left posterior paramidline pituitary gland is no longer visualized and may suggest interval favorable treatment response; correlate with clinical history. The suprasellar cistern is widely patent without mass effect along the optic nerve apparatus. Normal enhancement of the cavernous sinuses. No acute infarct. No extra-axial fluid collection. The ventricles and sulci are normal in size and configuration without significant volume loss or hydrocephalus. No parenchymal signal abnormality. No abnormal intraparenchymal or leptomeningeal enhancement. No significant mass effect or herniation pattern. The intracranial dural venous sinus and arterial flow voids are preserved. Artifact presumably from mascara limits assessment of the globes. Trace ethmoid air cell mucosal thickening. No mastoid effusion. Normal marrow signal. MR/MR head/brain wo/w con IMPRESSION: Previously seen hypoenhancing lesion within the left posterior paramidline pituitary gland is no longer visualized and may suggest interval favorable treatment response; correlate with clinical history. No new acute intracranial abnormality.
[2023-11-09] MEDS: gadobutroL 7.5 ML VIAL IVPUSH (14:23)
== END 2023-11-09 13:49 | disposition home or self-care (01) ==
LOC: HO.MRI 13:48
PROVIDERS: PCP Internal Medicine; Visit Provider Internal Medicine Endocrinology, Diabetes & Metabolism
DX: E23.7 Disorder of pituitary gland, unspecified (principal); D35.2 Benign neoplasm of pituitary gland
CPT/HCPCS: 70553; A9585

== ENCOUNTER 2023-11-13 13:01 | Outpatient (REF) | payer OTHER, SELFPAY ==
--- NOTE | ~2023-11-13 | US_ITS ---
EXAMINATION: US VENOUS ULTRASOUND WITH DOPPLER LOWER EXTREMITY, LEFT CLINICAL INFORMATION: History of left leg DVT COMPARISON: Ultrasound duplex bilateral extremity 06/09/2023 TECHNIQUE: Ultrasound of the deep veins is performed from the hip to the calf with compression sonography and color and pulse Doppler assessment. Spectral analysis with color-flow imaging is performed. FINDINGS: There is normal venous compression and respiratory variation and augmented flow. The visualized common femoral vein, superficial femoral vein, profunda femoral vein, popliteal vein, and the trifurcation region shows no evidence of deep venous thrombosis. There is no significant popliteal fossa cyst. If the patient's symptoms persist, followup ultrasound in 5 days 7 days might be of value to exclude proximal propagation from a non-visualized calf vein. US/US venous duplex LE IMPRESSION: No DVT demonstrated in the left lower extremity. Previously visualized mid superficial femoral vein and mid to distal posterior tibial vein thrombus has resolved
== END 2023-11-13 13:02 | disposition home or self-care (01) ==
LOC: HO.HMGCX 13:01
PROVIDERS: Visit Provider Internal Medicine Medical Oncology
DX: I82.402 Acute embolism and thrombosis of unspecified deep veins of left lower extremity (principal)
CPT/HCPCS: 93971

== ENCOUNTER 2023-11-17 14:15 | Outpatient (REF) | payer OTHER, SELFPAY ==
[2023-11-21 06:43] LABS: HPV mRNA E6/E7 Not Detected (Not Detected)
== END 2023-11-17 14:16 | disposition home or self-care (01) ==
LOC: HO.LNP 14:15
PROVIDERS: Visit Provider Obstetrics & Gynecology
DX: Z01.419 Encounter for gynecological examination (general) (routine) without abnormal findings (principal); Z11.51 Encounter for screening for human papillomavirus (HPV)
CPT/HCPCS: 87624; 88142

== ENCOUNTER 2023-12-21 12:02 | Outpatient (REF) | payer OTHER, SELFPAY ==
[2023-12-21 12:34] LABS: Hemoglobin 11.9 g/dl (12.0-16.0); Mean Corpuscular Hemoglobin 33.3 pg (27.0-33.0); Mean Platelet Volume 10.3 fL (9.4-12.3); Platelet Count 407 X10*3/uL (160-400); Red Blood Count 3.57 X10*6/uL (4.20-5.50); Red Cell Distribution Width 14.4 % (11.0-16.0); White Blood Count 6.5 X10*3/uL (4.8-10.8)
[2023-12-21 13:17] LABS: Alanine Aminotransferase 14 U/L (0-31); Albumin Level 4.4 g/dL (3.5-5.0); Alkaline Phosphatase 62 U/L (39-117); Aspartate Amino Transferase 22 U/L (5-31); Bilirubin Direct 0.2 mg/dL (0.0-0.5); Bilirubin Total 0.4 mg/dL (0.0-1.0); C Reactive Protein < 0.10 mg/dL (< or = 0.50); Iron 80 mcg/dL (30-160); Lipase 11 U/L (8-78); Percent Iron Saturation 31 % (15-50); Total Iron Binding Capacity 259 mcg/dL (228-428); Total Protein 7.2 g/dL (6.5-8.0); Unsaturated Iron Binding 179 ug/dL
[2023-12-21 13:20] LABS: Erythrocyte Sedimentation Rate 21 MM/HR (0-20)
[2023-12-25 13:18] LABS: 6-MMPN 555 (<5700); 6-TGN 416 (235-400)
[2023-12-25 13:22] LABS: VITAMIN D (1,25 OH) D3 47 pg/mL; Vit D (1,25-Dihydroxy) Total 47 pg/mL (18-72); Vitamin D (1,25 OH) D2 <8 pg/mL
== END 2023-12-21 12:03 | disposition home or self-care (01) ==
LOC: HO.LAB 12:02
PROVIDERS: PCP Internal Medicine; Visit Provider Internal Medicine Gastroenterology
DX: K50.111 Crohn's disease of large intestine with rectal bleeding (principal)
CPT/HCPCS: 36415; 80076; 80299; 82652; 83540; 83690; 85027; 85652; 86140

== ENCOUNTER 2024-01-01 14:38 | Outpatient (REF) | payer OTHER, SELFPAY ==
[2024-01-01 16:03] LABS: Appearance Urine Clear; Color Urine Yellow; Glucose Urine UA Negative (Negative); Leukocyte Esterase Urine Negative (Negative); Nitrite Urine Negative (Negative); PH 5.5 (5.0-9.0); Specific Gravity - Urine >= 1.030 (1.005-1.025); Urine Blood Negative (Negative); Urine Ketones Trace mg/dL (Negative); Urine Protein Negative (Neg-Trace)
== END 2024-01-01 14:39 | disposition home or self-care (01) ==
LOC: HO.LAB 14:38
PROVIDERS: PCP Nurse Practitioner Family; Visit Provider Nurse Practitioner Family
DX: R30.0 Dysuria (principal)
CPT/HCPCS: 81003

== ENCOUNTER 2024-01-06 12:34 | Day surgery (SDC) | payer OTHER, SELFPAY ==
[2024-01-04 09:25] VITALS: BMI 24.3
--- NOTE | 2024-01-04 14:11 | HO.ANESPROP2 ---
Documented by User: Jade Sanchez NP 01/04/24 14:14 HPI - Anesthesia Eval Consult details Narrative: 43yo F for Upper Endoscopy and Colonoscopy s/p flex sig 05/2023 with TIVA Eliquis for hx DVT PMFSH Active Problems Active Problems: All Active Problems (Updated 01/04/24 @ 09:09 by Princess Burden, RN) Deep vein blood clot of left lower extremity (Acute) Polyarthralgia (Acute) DVT (deep venous thrombosis) (Acute) Leg pain, bilateral (Acute) Abnormal CT of the abdomen (Acute) CMV (cytomegalovirus infection) (Acute) Fever of unknown origin (Acute) Elevated LFTs (Acute) Fever of unknown origin (Acute) Chronic sinusitis (Acute) correction systemic steroid user (Acute) Anemia (Acute) Abdominal pain (Acute) Raynaud's syndrome without gangrene (Acute) Varicose veins of right lower extremity with inflammation (Acute) Neuropathy (Acute) Raynaud's disease (Acute) Palpitations (Acute) Piriformis muscle pain (Acute) DDD (degenerative disc disease), lumbar (Acute) Pituitary abnormality (Acute) Pituitary adenoma (Acute) Anxiety (Acute) Vitamin D deficiency (Acute) Iron deficiency (Acute) Normal pelvic exam (Acute) Annual physical exam (Acute) 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 (Acute) 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 (Acute) 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), managed as type 1 (Acute) Postlaminectomy syndrome of lumbar region (Acute) Diabetes type 1, controlled (Acute) Chronic pain syndrome (Acute) Other specified mononeuropathies (Acute) Spondylosis of lumbar region without myelopathy or radiculopathy (Acute) Past Medical History Medical History Allergic rhinitis GERD (gastroesophageal reflux disease) Diverticulitis IBS (irritable bowel syndrome) Pituitary abnormality Hx of sigmoidoscopy Pituitary adenoma Vitamin D deficiency Iron deficiency Normal pelvic exam Annual physical exam 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 correction (current) use of insulin 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), managed as type 1 Elevated cholesterol Anxiety Crohn's disease Postlaminectomy syndrome of lumbar region Diabetes type 1, controlled Chronic pain syndrome Other specified mononeuropathies Spondylosis of lumbar region without myelopathy or radiculopathy Family History Family History Mother Tongue cancer Father Type 2 diabetes mellitus Retinopathy Neuropathy Angiopathy Blindness Renal failure Hypertension Cataract Skin cancer Paternal Uncle Substance use disorder Family history of problems with anesthesia: No Surgical History Surgical History History of esophagogastroduodenoscopy (EGD) History of root canal procedure H/O tooth extraction History of hemilaminectomy Hx of colonoscopy History of Problems with Anesthesia: No Social History Social History Household Members: Spouse and Children Household Members Other:: , 2 sons (11. 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[employer] Cognitive needs: No Hearing needs: No Vision needs: Yes Meds Allergies Allergy/AdvReac Type Severity Reaction Status Date / Time cephalexin Allergy Unknown RASH Verified 11/09/23 14:55 Penicillins Allergy Unknown RASH Verified 11/09/23 14:55 Sulfa (Sulfonamide Allergy Unknown RASH Verified 11/09/23 14:55 Antibiotics) azithromycin Allergy Unknown Verified 01/04/24 09:10 [From Zithromax Z-Zackary] sulfamethoxazole Allergy Unknown Verified 01/04/24 09:10 [From Bactrim] trimethoprim [From Bactrim] Allergy Unknown Verified 01/04/24 09:10 clindamycin AdvReac Mild Itching Verified 11/09/23 14:55 Home Medications Medication Instructions Recorded Confirmed Last Taken Type ustekinumab 90 mg/mL subcutaneous 90 mg subcut Q8W 12/10/21 01/04/24 Unknown History syringe (Stelara) azathioprine 50 mg tablet 150 mg PO DAILY 02/19/23 01/04/24 05/25/23 History tompmqe-paginqfkvsurt-uhexfpdv 250 1 tab PO DAILY PRN Migraine 05/26/23 01/04/24 05/25/23 History mg-250 mg-65 mg tablet (Excedrin Headache Migraine) hyoscyamine sulfate 0.375 mg 0.375 mg PO BID 05/26/23 01/04/24 05/25/23 History tablet,extended release,12 hr insulin lispro 100 unit/mL 1 sliding scale dose subcut TIDAC 05/26/23 01/04/24 Unknown History subcutaneous solution linaclotide 290 mcg capsule 290 mcg PO DAILY 05/26/23 01/04/24 05/25/23 History (Linzess) loratadine 10 mg tablet 10 mg PO DAILY 05/26/23 01/04/24 05/25/23 History pantoprazole 40 mg tablet,delayed 40 mg PO BID Acid Reflux 05/26/23 01/04/24 Unknown History release insulin glargine U-300 conc 300 14 unit subcut DAILY 10/29/23 01/04/24 Unknown History unit/mL (1.5 mL) subcutaneous pen (Toujeo SoloStar U-300 Insulin) ferrous sulfate 325 mg (65 mg 325 mg PO DAILY 01/04/24 01/04/24 Unknown History iron) tablet gabapentin 300 mg capsule 300 mg PO TID 01/04/24 01/04/24 Unknown History lorazepam 0.5 mg tablet 0.5 mg PO BEDTIME PRN Anxiety 01/04/24 01/04/24 Unknown History multivitamin 1 tab PO DAILY 01/04/24 01/04/24 Unknown History Exam Height,Weight and Vital Signs: Height 5 ft 2 in Weight 60.328 kg Pertinent Lab Results Pertinent Lab Results: Laboratory Tests 11/09/23 12/21/23 14:53 12:22 WBC 6.5 Hgb 11.9 L Hct 35.0 L Plt Count 407 H Sodium 135 Potassium 5.2 H Chloride 98 Carbon Dioxide 28 BUN 20 H Creatinine 0.85 Narrative Narrative: ECHO 2022 Conclusions: - The left ventricular systolic function is normal. The calculated ejection fraction is 60% by biplane method. - No obvious valvular pathology seen on this study. 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), managed as type 1 Elevated cholesterol Anxiety Crohn's disease Postlaminectomy syndrome of lumbar region Diabetes type 1, controlled Chronic pain syndrome Other specified mononeuropathies Spondylosis of lumbar region without myelopathy or radiculopathy Family History Family History Mother Tongue cancer Father Type 2 diabetes mellitus Retinopathy Neuropathy Angiopathy Blindness Renal failure Hypertension Cataract Skin cancer Paternal Uncle Substance use disorder Surgical History Surgical History History of esophagogastroduodenoscopy (EGD) History of root canal procedure H/O tooth extraction History of hemilaminectomy Hx of colonoscopy Social History Social History Household Members: Spouse and Children Household Members Other:: , 2 sons (11. 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[employer] Cognitive needs: No Hearing needs: No Vision needs: Yes Meds Allergies Allergy/AdvReac Type Severity Reaction Status Date / Time cephalexin Allergy Unknown RASH Verified 11/09/23 14:55 Penicillins Allergy Unknown RASH Verified 11/09/23 14:55 Sulfa (Sulfonamide Allergy Unknown RASH Verified 11/09/23 14:55 Antibiotics) azithromycin Allergy Unknown Verified 01/04/24 09:10 [From Zithromax Z-Zackary] sulfamethoxazole Allergy Unknown Verified 01/04/24 09:10 [From Bactrim] trimethoprim [From Bactrim] Allergy Unknown Verified 01/04/24 09:10 clindamycin AdvReac Mild Itching Verified 11/09/23 14:55 Home Medications Medication Instructions Recorded Confirmed Last Taken Type ustekinumab 90 mg/mL subcutaneous 90 mg subcut Q8W 12/10/21 01/04/24 Unknown History syringe (Stelara) azathioprine 50 mg tablet 150 mg PO DAILY 02/19/23 01/04/24 05/25/23 History tfgsiwj-hidkmcryrgztt-zamtvaqo 250 1 tab PO DAILY PRN Migraine 05/26/23 01/04/24 05/25/23 History mg-250 mg-65 mg tablet (Excedrin Headache Migraine) hyoscyamine sulfate 0.375 mg 0.375 mg PO BID 05/26/23 01/04/24 05/25/23 History tablet,extended release,12 hr insulin lispro 100 unit/mL 1 sliding scale dose subcut TIDAC 05/26/23 01/04/24 Unknown History subcutaneous solution linaclotide 290 mcg capsule 290 mcg PO DAILY 05/26/23 01/04/24 05/25/23 History (Linzess) loratadine 10 mg tablet 10 mg PO DAILY 05/26/23 01/04/24 05/25/23 History pantoprazole 40 mg tablet,delayed 40 mg PO BID Acid Reflux 05/26/23 01/04/24 Unknown History release insulin glargine U-300 conc 300 14 unit subcut DAILY 10/29/23 01/04/24 Unknown History unit/mL (1.5 mL) subcutaneous pen (Toujeo SoloStar U-300 Insulin) ferrous sulfate 325 mg (65 mg 325 mg PO DAILY 01/04/24 01/04/24 Unknown History iron) tablet gabapentin 300 mg capsule 300 mg PO TID 01/04/24 01/04/24 Unknown History lorazepam 0.5 mg tablet 0.5 mg PO BEDTIME PRN Anxiety 01/04/24 01/04/24 Unknown History multivitamin 1 tab PO DAILY 01/04/24 01/04/24 Unknown History Exam Airway Mallampati Class: II TM Dist: >3cm Neck ROM: Full Loose/Missing/Broken Teeth: No Heart: rrr Lungs: cta b/l Assessment and Plan Final Anesthetic Review NPO: Yes ASA Class: III Final Preanesthetic Review: No Changes in Pt Med Stat, Meds/Allgs Chart Reviewed, Consent Obtained/Reviewed and Anes Risks/Benef Reviewed Patient Risk: Intermediate Procedure Risk: Intermediate Anesthetic Plan Anesthetic Plan: MAC: Disposition: Standard PACU
[2024-01-06 12:48] VITALS: BMI 23.1
[2024-01-06 12:55] LABS: UPreg QC Valid YES; Urine Pregnancy NEGATIVE (NEGATIVE)
[2024-01-06 12:59] LABS: Glucose, Whole Blood 96 mg/dL (60-115)
[2024-01-06] MEDS: Lactated Ringers 1,000 ML 100 ML IVCONT (13:25)
[2024-01-06 13:26] VITALS: BP 112/79; PULSE 88; RESP 16; TEMP 36.2; O2SAT 99
--- NOTE | 2024-01-06 13:42 | MHC.SHP ---
Pre-Procedural Eval Section A - 24 Hr Update-Section A only Date of Service: 01/06/24 The patient is an INPATIENT: No Changes since office visit: No Cold of Flu in the past 2 weeks, No New Medical Problems, No Changes in Medication and No Patient answered all questions The patient has been examined within 24 hours of the surgical procedure. The History & Physical has been completed within 30 days and I have reviewed it.: Yes Section B - Complete if H&P > 30 days Chief Complaint: Crohn's disease of large intestine,gerd Allergies: Allergies Allergy/AdvReac Type Severity Reaction Status Date / Time cephalexin Allergy Unknown RASH Verified 11/09/23 14:55 Penicillins Allergy Unknown RASH Verified 11/09/23 14:55 Sulfa (Sulfonamide Allergy Unknown RASH Verified 11/09/23 14:55 Antibiotics) azithromycin Allergy Unknown Verified 01/04/24 09:10 [From Zithromax Z-Zackary] sulfamethoxazole Allergy Unknown Verified 01/04/24 09:10 [From Bactrim] trimethoprim [From Bactrim] Allergy Unknown Verified 01/04/24 09:10 clindamycin AdvReac Mild Itching Verified 11/09/23 14:55 Plan I have reviewed the history and physical and performed a pertinent physical examination on my patient. No changes have occurred unless specified. Time Spent With Patient Time: Total time managing care of this patient today ____ minutes.
[2024-01-06 14:40] VITALS: BP 106/69; PULSE 88; RESP 17; TEMP 36.2; O2SAT 100
[2024-01-06 15:03] VITALS: BP 107/69; PULSE 78; RESP 18; TEMP 36.1; O2SAT 100
--- NOTE | 2024-01-06 15:49 | OP_ITS ---
DATE OF SERVICE: 01/06/2024 SURGEON: Satinder Correa MD INDICATIONS: Crohn disease involving the colon. PREOPERATIVE DIAGNOSIS: POSTOPERATIVE DIAGNOSIS: PROCEDURE PERFORMED: Upper endoscopy with biopsy, colonoscopy to the terminal ileum with biopsy. ESTIMATED BLOOD LOSS: COMPLICATIONS: ANESTHESIA: Monitored anesthesia care. ASSISTANTS: SPECIMENS: DESCRIPTION OF PROCEDURE: A history and physical was performed. The risks and benefits of the procedure were explained to the patient and informed consent was obtained. The patient was placed in the left lateral decubitus position. The Olympus video gastroscope was introduced into the esophagus, stomach, and duodenum. Examination was performed and the scope was removed. She was repositioned for colonoscopy. A digital rectal exam was performed and was found to be normal. The Olympus pediatric video colonoscope was introduced into the rectum and advanced to the cecum. The cecum was identified by transillumination, palpation, and identification of ileocecal valve. Examination was performed and the scope was removed. She tolerated both procedures well and was returned to the recovery area in stable condition. FINDINGS: Upper endoscopy: 1. Esophagus: The esophagus was normal. Biopsies were obtained from the EG junction. 2. Stomach: The stomach showed no evidence of masses, ulcers, or polyps. The antral biopsies were obtained. 3. Duodenum: The bulb and 2nd portion were normal. Biopsies were obtained from 2nd portion. Colonoscopy: Changes of colitis were present in the rectum from about 5 to about 15 cm with circumferential ulceration and loss of vascular pattern. Biopsies were obtained from the terminal ileum and throughout the colon. There was no ileal involvement. Retroflexed examination was normal. IMPRESSION: Crohn's colitis. RECOMMENDATION: Follow up the biopsy results. MD MARICARMEN Adkins/RETAL / [phone]
== END 2024-01-06 15:23 | disposition home or self-care (01) ==
PROVIDERS: Nurse Practitioner; PCP Internal Medicine; Visit Provider Internal Medicine Gastroenterology
PROC: (CPT 45380; principal; 2024-01-06 13:50)
DX: K50.10 Crohn's disease of large intestine without complications (principal); K62.89 Other specified diseases of anus and rectum; K52.89 Other specified noninfective gastroenteritis and colitis; K21.9 Gastro-esophageal reflux disease without esophagitis; K22.70 Barrett's esophagus without dysplasia; E61.1 Iron deficiency; Z87.19 Personal history of other diseases of the digestive system; Z80.8 Family history of malignant neoplasm of other organs or systems; G89.4 Chronic pain syndrome; E10.8 Type 1 diabetes mellitus with unspecified complications; E78.00 Pure hypercholesterolemia, unspecified; E55.9 Vitamin D deficiency, unspecified; J30.9 Allergic rhinitis, unspecified; Z88.0 Allergy status to penicillin; F41.8 Other specified anxiety disorders; Z88.1 Allergy status to other antibiotic agents; Z88.2 Allergy status to sulfonamides; Z98.890 Other specified postprocedural states; Z79.4 Long term (current) use of insulin; Z79.620 Long term (current) use of immunosuppressive biologic; Z79.624 Long term (current) use of inhibitors of nucleotide synthesis; Z79.01 Long term (current) use of anticoagulants; Z79.899 Other long term (current) drug therapy
CPT/HCPCS: 45380; 43239; 81025; 82947; 88305; 88313; 88342; J2704

== ENCOUNTER 2024-01-11 12:11 | Outpatient (REF) | payer OTHER, SELFPAY ==
[2024-01-11 13:50] LABS: Appearance Urine Cloudy; Color Urine Dark Yellow; Glucose Urine UA Negative (Negative); Leukocyte Esterase Urine Moderate (2+) (Negative); Nitrite Urine Positive (Negative); PH 6.5 (5.0-9.0); Specific Gravity - Urine 1.025 (1.005-1.025); UMIC TRIGGER UACC YES; Urine Blood Negative (Negative); Urine Ketones Trace mg/dL (Negative); Urine Protein Negative (Neg-Trace)
[2024-01-11 13:57] LABS: Bacteria Urine 4+ (None Seen); Hyaline Casts Urine 0-2 /LPF (0-2); RBC Urine 0-2 /HPF (0-2); UACC Culture Trigger YES; WBC Urine >50 /HPF (0-5)
== END 2024-01-11 12:12 | disposition home or self-care (01) ==
LOC: HO.LAB 12:11
PROVIDERS: PCP Nurse Practitioner Family; Visit Provider Nurse Practitioner Family
DX: R30.0 Dysuria (principal)
CPT/HCPCS: 81001; 87086; 87088; 87186

== ENCOUNTER 2024-01-14 07:53 | Outpatient (REF) | payer OTHER, SELFPAY ==
--- NOTE | ~2024-01-14 | CT_ITS ---
EXAMINATION: CT SINUS WITHOUT CONTRAST CLINICAL INFORMATION: Abscess of the nose. COMPARISON: MR brain 11/09/2023. TECHNIQUE: Driver Starting Gate images were obtained. CT imaging of the face was performed without contrast. Data was reformatted into multiplanar images at the acquisition workstation. This CT examination was performed using dose optimization techniques as appropriate, variously including the following: *Automated exposure control *Adjustment of mA and/or kV according to patient size (this includes techniques or standardized protocols for targeted exams where dose is matched to indication/reason for exam; i.e. extremities or head) *Use of iterative reconstruction technique DLP: 84 mGy-cm FINDINGS: There is no abnormal inflammatory changes within the subcutaneous soft tissues. Although this examination was performed without contrast there is no convincing evidence of a discrete drainable fluid collection. Globes and extraocular muscles are symmetric. No abnormal retrobulbar inflammation. Lamina papyracea and orbital floors are intact. Orbital apices are unremarkable. Paranasal sinuses are well aerated and all of the major paranasal sinus drainage pathways are patent. No nasal septal deviation. There is however a small leftward projecting nasal septal spur. Limited visualization of the intracranial anatomy reveals no abnormal finding. CT/CT sinus wo IV con IMPRESSION: Although this examination was performed without contrast there is no convincing evidence of a discrete drainable fluid collection. No abnormal inflammatory changes within the subcutaneous soft tissues. Paranasal sinus are well aerated and the major paranasal sinus drainage pathways are patent. No nasal septal deviation. There is a small leftward projecting nasal septal spur.
== END 2024-01-14 07:54 | disposition home or self-care (01) ==
LOC: HO.CT 07:53
PROVIDERS: PCP Internal Medicine; Visit Provider Otolaryngology
DX: J33.0 Polyp of nasal cavity (principal); J34.0 Abscess, furuncle and carbuncle of nose
CPT/HCPCS: 70486

== ENCOUNTER 2024-02-05 15:06 | Outpatient (AMB) | payer OTHER, SELFPAY ==
[2024-02-05 15:11] VITALS: BP 110/70; PULSE 86; TEMP 36.5; O2SAT 98; BMI 23.2
--- NOTE | 2024-02-05 15:11 | MHC.OFFWIV ---
Intake Vital Signs 02/05/24 15:11 Height 5 ft 2 in Weight 127 lb BMI 23.2 BP 110/70 Blood Pressure Location Rt brachial Position Sitting Pulse 86 Pulse Source Pulse Oximeter Temp 97.7 F Temp Source Oral Pulse Oximetry (%) 98 Oxygen Delivery Method Room Air Intake Visit Reasons: EP Lft leg pain (DVT) Intake Note: pt is here for left leg pain, concern of possible dvt Patient Tobacco Use Status: Never used Tobacco Allergies cephalexin Allergy (Unknown, Verified 02/05/24 15:12) RASH Penicillins Allergy (Unknown, Verified 02/05/24 15:12) RASH Sulfa (Sulfonamide Antibiotics) Allergy (Unknown, Verified 02/05/24 15:12) RASH azithromycin [From Zithromax Z-Zackary] Allergy (Verified 02/05/24 15:12) Unknown sulfamethoxazole [From Bactrim] Allergy (Verified 02/05/24 15:12) Unknown trimethoprim [From Bactrim] Allergy (Verified 02/05/24 15:12) Unknown clindamycin Adverse Reaction (Mild, Verified 02/05/24 15:12) Itching Do you need a note to return to daycare/school/sports/work: Yes HPI HPI Comments History of Present Illness Details 43-year-old female presents today with left posterior leg pain. The patient has a past medical history of DVT. She is currently on Eliquis. 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), managed as type 1 Elevated cholesterol Anxiety Crohn's disease Postlaminectomy syndrome of lumbar region Diabetes type 1, controlled Chronic pain syndrome 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 I discussed that with the patient Assessment & Plan Assessment & Plan (1) Leg pain, left: Code(s): M79.605 - Pain in left leg Plan: The patient will have an ultrasound stat to rule out a DVT. Plan See plan Orders: Orders US venous duplex LE LT Today M79.605 - Pain in left leg Coding Level of Care Code Est Pt Level 3 (75312) Diagnoses Leg pain, left M79.605
== END 2024-02-05 16:07 | disposition home or self-care (01) ==
PROVIDERS: PCP Nurse Practitioner Family; Visit Provider Physician Assistant Medical
DX: M79.605 Pain in left leg (principal)
CPT/HCPCS: 99213

== ENCOUNTER 2024-02-05 15:31 | Outpatient (REF) | payer OTHER, SELFPAY ==
--- NOTE | ~2024-02-05 | US_ITS ---
EXAMINATION: US VENOUS ULTRASOUND WITH DOPPLER LOWER EXTREMITY, LEFT CLINICAL INFORMATION: Pain COMPARISON: None available. TECHNIQUE: Ultrasound of the deep veins is performed from the hip to the calf with compression sonography and color and pulse Doppler assessment. Spectral analysis with color-flow imaging is performed. FINDINGS: There is normal venous compression and respiratory variation and augmented flow. The visualized common femoral vein, superficial femoral vein, profunda femoral vein, popliteal vein, and the trifurcation region shows no evidence of deep venous thrombosis. There is no significant popliteal fossa cyst. If the patient's symptoms persist, followup ultrasound in 5 days 7 days might be of value to exclude proximal propagation from a non-visualized calf vein. US/US venous duplex LE LT IMPRESSION: No DVT demonstrated in the left lower extremity.
== END 2024-02-05 15:32 | disposition home or self-care (01) ==
LOC: HO.HMGCX 15:31
PROVIDERS: PCP Nurse Practitioner Family; Visit Provider Physician Assistant Medical
DX: M79.605 Pain in left leg (principal)
CPT/HCPCS: 93971

== ENCOUNTER 2024-04-04 11:07 | Outpatient (AMB) | payer OTHER, SELFPAY ==
[2024-04-04 11:10] VITALS: BP 120/84; PULSE 87; BMI 24.6
--- NOTE | 2024-04-04 11:10 | A.OFFVIS_ITS ---
Vital Signs 04/04/24 11:10 Height 5 ft 2 in Weight 134 lb 7.712 oz BMI 24.6 BP 120/84 Blood Pressure Location Lt brachial Position Sitting Pulse 87 Pulse Source Pulse Oximeter Intake Visit Reasons: f/u Type 1 DM and pituitary adenoma-confirmed Intake Note: Patient present today to follow up on Type 1 KAZ. Last Diabetic Eye exam: Over 1 year ago but has appt on 04/08/24. Last Podiatry Visit: Doesn't have one Random Glucose: 89 mg/dl HgA1C: 5.8% Glass Silverer Required: No Accompanied by: Self / Same As Patient Allergies cephalexin Allergy (Unknown, Verified 04/04/24 11:15) RASH Penicillins Allergy (Unknown, Verified 04/04/24 11:15) RASH Sulfa (Sulfonamide Antibiotics) Allergy (Unknown, Verified 04/04/24 11:15) RASH azithromycin [From Zithromax Z-Zackary] Allergy (Verified 04/04/24 11:15) Unknown sulfamethoxazole [From Bactrim] Allergy (Verified 04/04/24 11:15) Unknown trimethoprim [From Bactrim] Allergy (Verified 04/04/24 11:15) Unknown clindamycin Adverse Reaction (Mild, Verified 04/04/24 11:15) Itching Medication List - Last Reconciled 04/04/24 by Luis Viera MD apixaban 5 mg PO BID ascorbate calcium (vitamin C) 500 mg PO DAILY mksuesg-eudxjfnuqjssg-eixfagjr 250-250-65 mg (Excedrin Migraine) 1 tab PO DAILY PRN atorvastatin 40 mg PO DAILY azathioprine 150 mg PO DAILY blood sugar diagnostic (FreeStyle Lite Strips) As directed test 4 times a day blood-glucose meter (FreeStyle Lite Meter kit) As directed blood-glucose meter,continuous (Dexcom G7 Basket Assembler) As directed blood-glucose sensor (Dexcom G7 Sensor device) APPLY DIRECTED TO TEST BLOOD SUGAR CHANGE OUT EVERY 10 DAYS cholecalciferol (vitamin D3) 25 mcg PO DAILY ciprofloxacin HCl (Cipro) 250 mg PO BID 3 days ferrous sulfate 325 mg PO DAILY gabapentin 300 mg PO TID hyoscyamine sulfate ER 0.375 mg PO BID insulin glargine U-300 conc (Toujeo SoloStar U-300 Insulin) 14 units subcut DAILY insulin lispro 1 sliding scale dose subcut TIDAC insulin lispro (Humalog KwikPen (U-100) Insulin) inject 1 unit for every 15 grams of carbohydrates subcutaneously 3 times a day; insulin lispro (Humalog U-100 Insulin) Infuse up to 50 units per day via insulin pump subcutaneously; lancets (OneTouch Delica Plus Lancet) As directed test 3 times a day linaclotide (Linzess) 290 mcg PO DAILY loratadine 10 mg PO DAILY lorazepam 0.5 mg PO BEDTIME PRN multivitamin 1 tab PO DAILY nystatin 1,000,000 units PO BID pantoprazole 40 mg PO BID paroxetine HCl ER 25 mg PO DAILY pen needle, diabetic (BD Monica 2nd Gen Pen Needle) USE 1 PEN NEEDLE UP TO 4 TIMES DAILY; spironolactone mg PO ustekinumab (Stelara) 90 mg subcut Q8W HPI Comments Details: Patient is 43-year-old female with DM type 1/KAZ diagnosed 2014, who presents for management of diabetes. She was found to have + RODOLFO 65 antibodies in 2010 when she was trying to donate a kidney to her father. 2011 RODOLFO was 18.5 and in 2014 was 8.9, negative islet cell antibodies, she had d etectable C-peptide and insulin level. Past medical history: DM1 (KAZ), 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, Chrone's disease, Raynaud's diesease Micro and macrovascular complications: denies Diabetes medications: Toujeo 14 units, Humalog Insulin to carb ratio 1u:15g and correction of 1 unit for every 50mg/dl above 150mg/dl). Not using Humalog Not taking insulin in mos . Not taking insulin Continuous glucose monitoring: In the last 2 weeks average blood glucose is 135 . <1 % her last than 70 mg/dL. 87% in target range of 70-180. 13% blood glucose high over 180. <1% over 250. Coefficient variation 31%. C GM is active 100% of the time. Symptoms reported: + numbness, tingling, cramping in right extremities Hypoglycemia: None but reports frequent night sweats with no hypoglycemia Hyperglycemia: denies urinary frequency, nocturia, polydypsia Hand Binder Cutter - CDE education: been awhile Professional Wrestler: denies Ophthalmology evaluation: Other specialists: Commissary Production Supervisor Laboratory Tests 03/23/19 06/15/20 05/06/21 11:10 09:40 10:21 Hgb A1c (Clinic) 5.8 C-Peptide 0.65 L Insulin Autoantibody <0.4 Has Omnipod at home but has not used it [facility] Medical History (Updated 02/05/24 @ 15:23 by STEPHANI Flores) Allergic rhinitis GERD (gastroesophageal reflux disease) Diverticulitis IBS (irritable bowel syndrome) Pituitary abnormality Hx of sigmoidoscopy Pituitary adenoma Vitamin D deficiency Iron deficiency Normal pelvic exam Annual physical exam 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), managed as type 1 Elevated cholesterol Anxiety Crohn's disease Postlaminectomy syndrome of lumbar region Diabetes type 1, controlled Chronic pain syndrome 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 Absence of acromegalic features. Neck exam reveals nl size thyroid about 15 gms. No thyroid nodules palpable. No carotid bruits present. Lungs CTA. Heart S1 S2, Reg R/R. No M/R/ G. Skin exam reveals absence of vitiligo or acanthosis nigricans. Abdominal exam reveals Soft NT/ND with NA BS. No organomegaly present. Extrem Other: Visual exam of foot performed. No ulcerations or open lesions. No onchomycosis, no callouses.Pulses 2 + distally. Sensation intact to monofilament exam. 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 Plan is to ll have patient follow up with clinical informatics educator to discuss initiation of Omnipod which I think can provide a small amount of basal insulin to prevent diabetic ketoacidosis in this patient with low insulin reserve and positive antibodies Patient might benefit from using basal only pump to avoid hypoglycemia and excessive insulin causing weight gain (2) Pituitary abnormality: Code(s): E23.7 - Disorder of pituitary gland, unspecified Category: Medical Plan: See below (3) Pituitary adenoma: Code(s): D35.2 - Benign neoplasm of pituitary gland Category: Medical Plan: non -secretory. Repeat MRI showed the absence of any pituitary lesion. 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
[2024-04-04 11:26] LABS: Glucose, Whole Blood 89 mg/dL (60-115)
== END 2024-04-04 11:45 | disposition home or self-care (01) ==
PROVIDERS: PCP Internal Medicine; Visit Provider Internal Medicine Endocrinology, Diabetes & Metabolism
DX: E13.9 Other specified diabetes mellitus without complications (principal); E23.7 Disorder of pituitary gland, unspecified; D35.2 Benign neoplasm of pituitary gland; Z13.9 Encounter for screening, unspecified; E10.9 Type 1 diabetes mellitus without complications
CPT/HCPCS: 99214

== ENCOUNTER → 2024-04-04 11:07 | Outpatient (BNVA) | payer OTHER, SELFPAY | PROVIDERS: PCP Internal Medicine; Visit Provider Internal Medicine Endocrinology, Diabetes & Metabolism | DX: E13.9 Other specified diabetes mellitus without complications (principal); E23.7 Disorder of pituitary gland, unspecified; D35.2 Benign neoplasm of pituitary gland | CPT/HCPCS: 82947; 83036 ==

== ENCOUNTER 2024-04-11 15:35 | Outpatient (AMB) | payer OTHER, SELFPAY ==
--- NOTE | 2024-04-11 16:29 | A.OFFVIS_ITS ---
Intake Intake Visit Reasons: 2 hour pump training appt Slag Expander Required: No Accompanied by: Self / Same As Patient Allergies cephalexin Allergy (Unknown, Verified 04/04/24 11:15) RASH Penicillins Allergy (Unknown, Verified 04/04/24 11:15) RASH Sulfa (Sulfonamide Antibiotics) Allergy (Unknown, Verified 04/04/24 11:15) RASH azithromycin [From Zithromax Z-Zackary] Allergy (Verified 04/04/24 11:15) Unknown sulfamethoxazole [From Bactrim] Allergy (Verified 04/04/24 11:15) Unknown trimethoprim [From Bactrim] Allergy (Verified 04/04/24 11:15) Unknown clindamycin Adverse Reaction (Mild, Verified 04/04/24 11:15) Itching HPI Comprehensive Diabetes Asmnt Most Recent Diabetes Results: AST 22 U/L (5-31) 12/21/23 ALT 14 U/L (0-31) 12/21/23 Total Protein 7.2 g/dL (6.5-8.0) 12/21/23 Albumin 4.4 g/dL (3.5-5.0) 12/21/23 [facility] Medical History (Updated 02/05/24 @ 15:23 by STEPHANI Flores) Allergic rhinitis GERD (gastroesophageal reflux disease) Diverticulitis IBS (irritable bowel syndrome) Pituitary abnormality Hx of sigmoidoscopy Pituitary adenoma Vitamin D deficiency Iron deficiency Normal pelvic exam Annual physical exam 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), managed as type 1 Elevated cholesterol Anxiety Crohn's disease Postlaminectomy syndrome of lumbar region Diabetes type 1, controlled Chronic pain syndrome 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 The following topics were reviewed today: Patient brought Omni 5 stock grader, [place] [id number]. Patient is also using Dexcom G7 at this time, not Dexcom G6. Patient is conflicted about starting insulin pump therapy. During our discussion patient expressed concerns about hypoglycemia which she has had history of when she is taking insulin. Currently patient is not taking any insulin. Did discuss with patient that with Omnipod 5, even if she is using just for basal insulin it will connect with the Dexcom G6 sensor, to give her some protection over hypoglycemia when glucose is trending down. This is one of the advantages insulin pump therapy over taking basal insulin. CGM data for the past 2 weeks Patient's average glucose 134 mg/dL Patient above target 10% At target 89% Below target 1% Patient's last A1c on 04/04/2024 5.8%, however patient has a history of low red blood cell count. We did discuss how this can affect A1c value. GMI on Dexcom G7 6.5% for the past 90 days Discussed at length with the patient the risk of developing DKA without taking any insulin at all. Patient does have insulin to carb ratio of 1-15, and correction factor of 1-50 She corrects to 150 mg/dL Reviewed with patient how to calculate correction dose if she is experiencing hy perglycemia Patient is also interested in seeking 2nd opinion regarding status of her diabetes encourage patient to do what makes her feel comfortable but reiterated the concern regarding diabetic ketoacidosis Encourage patient to follow-up on 2nd opinion or at least start some type of insulin for DKA prevention -Pump therapy basic concepts: Basal/bolus, insulin to carb ratio, correction factor, insulin on board Troubleshooting after starting new pod or inserting new insulin set: Occlusion, adhesive tape sensitivity, redness Check BG 2 hours after site change Safety information: Importance of a backup plan, for manual injections, proper prescriptions and emergency supplies ketone strips, and rules for testing for ketones Patient given instructions on how to test urine for ketones Patient will contact Diabetes Education nurse with questions or concerns, patient will contact java front end web developer if she would like to set Omnipod 5 Instructed patient to discard any pods, or sensors Portions of this note were created using voice recognition software, please excuse any words or phrases that may have been misinterpreted. Patient Instructions: DIABETES PROBLEMS HOMECARE INSTRUCTIONS? for High Blood Sugar and When to Test for Ketones Hyperglycemia is the technical term for high blood glucose (blood sugar). High blood sugar happens when the body has too little insulin or when the body can't use insulin properly. What causes hyperglycemia? A number of things can cause hyperglycemia: * If you have type 1, you may not have given yourself enough insulin. ? If you have type 2, your body may have enough insulin, but it is not as effective as it should be. * You ate more than planned or exercised less than planned. * You have stress from an illness, such as a cold or flu. * You have other stress, such as family conflicts or school or dating problems. How to lower your blood sugar level. ? Take medications as directed by physician. ? Drink extra water or noncaffeinated, nonsugared drinks to prevented hydration. ? Exercise if you are not sick However, if your blood sugar is above 250 mg/dl, check your urine for ketones. If you have ketones, do not exercise Exercising when ketones are present may make your blood sugar level go even higher. You'll need to work with your doctor to find the safest way for you to lower your blood sugar level. Regularly check blood sugar or urine for sugar and acetone during illness. Diabetic ketoacidosis (DKA) Is serious condition that can lead to diabetic coma (passing out for a long time) or even . When your cells don't get the glucose they need for energy, your body begins to burn fat for energy, which produces ketones. Ketones are chemicals that the body creates when it breaks down fat to use for energy. The body does this when it doesn?t have enough insulin to use glucose, the body?s normal source of energy. When ketones build up in the blood, they make it more acidic. They are a warning sign that your diabetes is out of control or that you are getting sick. Symptoms of Diabetic Ketoacidosis (DKA) ? DKA usually develops slowly. But when vomiting occurs, this life- threatening condition can develop in a few hours. Early symptoms include the following: ? Thirst or a very dry mouth ? Frequent urination ? High blood glucose (blood sugar) levels ? High levels of ketones in the urine ? Then, other symptoms appear: ? Constantly feeling tired ? Dry or flushed skin ? Nausea, vomiting, or abdominal pain ? (Vomiting can be caused by many illnesses, not just ketoacidosis. If vomiting continues for more than 2 hours, contact your health care provider.) ? Difficulty breathing ? Fruity odor on breath ? A hard time paying attention, or confusion When should you test for ketones? It is advisable to check for ketones under the following conditions when: Your blood glucose is higher than 250mg/dl. Feeling nauseated, throwing up, or have pains in your abdominal region. Have a cold or flu. Have general body fatigue. Feel thirsty or have a very dry mouth. Have flushed skin. Have a fruity breath or a hard time breathing. You feel perplexed or in fog. How to Test Urine for Ketones You can detect ketones with a simple urine test using a test strip, similar to a blood testing strip. Ask your health care provider when and how you should test for ketones. Many experts advise to check your urine for ketones when your blood glucose is more than 250 mg/dl. When you are ill (when you have a cold or the flu, for example), check for ketones every 4 to 6 hours. And check every 4 to 6 hours when your blood sugar is more than 250 mg/dl. Also, check for ketones when you have any symptoms of DKA. How to lower your blood sugar level. ? Take medications as directed by physician. ? Drink extra water or noncaffeinated, nonsugared drinks to prevented hydration. ? Exercise if you are not sick However, if your blood sugar is above 250 mg/dl, check your urine for ketones. If you have ketones, do not exercise Exercising when ketones are present may make your blood sugar level go even higher. You'll need to work with your doctor to find the safest way for you to lower your blood sugar level. 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
== END 2024-04-11 16:49 | disposition home or self-care (01) ==
PROVIDERS: PCP Internal Medicine; Visit Provider Registered Nurse Diabetes Educator
DX: E13.9 Other specified diabetes mellitus without complications (principal)

== ENCOUNTER → 2024-04-11 15:35 | Outpatient (BNVA) | payer OTHER, SELFPAY | PROVIDERS: PCP Internal Medicine; Visit Provider Registered Nurse Diabetes Educator | DX: Z46.81 Encounter for fitting and adjustment of insulin pump (principal); E13.9 Other specified diabetes mellitus without complications | CPT/HCPCS: 99211 ==

== ENCOUNTER 2024-04-13 09:50 | Outpatient (REF) | payer OTHER, SELFPAY ==
[2024-04-13 10:11] LABS: Hematocrit 35.1 % (37.0-47.0); Hemoglobin 12.1 g/dl (12.0-16.0); Mean Corpuscular HGB Conc 34.5 g/dl (31.0-35.0); Mean Corpuscular Hemoglobin 34.5 pg (27.0-33.0); Mean Platelet Volume 10.7 fL (9.4-12.3); Platelet Count 334 X10*3/uL (160-400); Red Blood Count 3.51 X10*6/uL (4.20-5.50); Red Cell Distribution Width 13.1 % (11.0-16.0); White Blood Count 5.7 X10*3/uL (4.8-10.8)
[2024-04-13 10:55] LABS: Erythrocyte Sedimentation Rate 18 MM/HR (0-20)
[2024-04-13 11:18] LABS: Alanine Aminotransferase 19 U/L (0-31); Albumin Level 4.3 g/dL (3.5-5.0); Alkaline Phosphatase 87 U/L (39-117); Aspartate Amino Transferase 27 U/L (5-31); Bilirubin Direct 0.2 mg/dL (0.0-0.5); Bilirubin Total 0.5 mg/dL (0.0-1.0); C Reactive Protein < 0.10 mg/dL (< or = 0.50); Lipase 20 U/L (8-78); Total Protein 7.7 g/dL (6.5-8.0)
== END 2024-04-13 09:51 | disposition home or self-care (01) ==
LOC: HO.LAB 09:50
PROVIDERS: PCP Nurse Practitioner Family; Visit Provider Internal Medicine Gastroenterology
DX: K50.111 Crohn's disease of large intestine with rectal bleeding (principal)
CPT/HCPCS: 36415; 80076; 82397; 83520; 83690; 85027; 85652; 86140; 86141

== ENCOUNTER 2024-06-03 08:17 | Outpatient (REF) | payer OTHER, SELFPAY ==
--- NOTE | ~2024-06-03 | XR_ITS ---
EXAMINATION: XR KNEE, LEFT CLINICAL INFORMATION: Arthritis. Pain COMPARISON: None available. TECHNIQUE: Two views of the left knee. FINDINGS: No joint effusion. No fracture, dislocation or destructive process. XR/XR knee LT 3V IMPRESSION: Normal left knee. Electronically signed by: Rodolfo Cleaning MD 07/05/2024 08:11 AM EDT
--- NOTE | ~2024-06-03 | XR_ITS ---
EXAMINATION: XR SACROILIAC JOINTS CLINICAL INFORMATION: Sacroiliac pain. Arthritis symptoms for years . Lower back pain radiating to hips and legs. Right worse than left. No known injury. COMPARISON: None available. TECHNIQUE: 3 views of the sacroiliac joints FINDINGS: No fractures, or focal bony abnormalities. The SI joints have a normal appearance without arthritic changes or erosions identified. No significant osteophytic spurring or periarticular sclerosis present. Normal-appearing hip joints. Degenerative disc changes L4-5 with sclerotic endplate changes and bridging frontal and lateral osteophytes. Normal-appearing soft tissues. XR/XR sacroiliac joint min 3V IMPRESSION: Normal sacroiliac joints. Electronically signed by: Leon Fernandez MD 08/25/2024 09:39 AM EDT
--- NOTE | ~2024-06-03 | XR_ITS ---
EXAMINATION: XR KNEE, RIGHT CLINICAL INFORMATION: Arthritis symptoms for years . Lower back pain radiating to hips and legs. Right worse than left. No known injury. COMPARISON: None available. TECHNIQUE: AP view of bilateral knees standing, and lateral and sunrise views of the right knee. FINDINGS: No fracture, dislocation, or focal bony abnormality. Joint spaces are preserved in all 3 compartments. Mild lateral patellar tilt noted on the sunrise view. Soft tissues appear normal. No joint effusion. Left knee appears normal on the AP view. XR/XR knee RT 3V IMPRESSION: Essentially normal examination. No acute bony abnormalities and no significant arthritis or joint effusion. Electronically signed by: Leon Fernandez MD 08/25/2024 09:42 AM EDT
--- NOTE | ~2024-06-03 | XR_ITS ---
EXAMINATION: XR ELBOW, LEFT CLINICAL INFORMATION: Arthritis. Pain COMPARISON: None available. TECHNIQUE: AP, lateral, and oblique views of the left elbow. FINDINGS: No fracture, dislocation or destructive lesion or joint effusion. Radial head is intact. XR/XR elbow LT 2V IMPRESSION: Negative study. Electronically signed by: Rodolfo Cleaning MD 07/05/2024 08:12 AM EDT
--- NOTE | ~2024-06-03 | MR_ITS ---
EXAMINATION: MR PELVIS WITHOUT CONTRAST CLINICAL INFORMATION: Assess for sacroiliitis. Low back pain. Right hip pain. COMPARISON: CT dated 10/29/2023. TECHNIQUE: Multiplanar MR imaging was obtained through the osseous pelvis on a 1.5 Molly magnet with coverage limited to the sacroiliac joints. FINDINGS: Sacroiliac joints: Well-preserved without findings of sacroiliitis. Cortices are sharply marginated without erosions or significant subchondral marrow edema, sclerosis, or fatty replacement. No enthesitis. Imaged lower lumbar spine: Hugsjrdt-qj-wvduci degenerative disc disease at L4-L5 with a diffuse disc bulge that produces at least mild central canal narrowing and mild bilateral neural foraminal narrowing. There is Castellvi type IB transitional anatomy at the lumbosacral junction with hypertrophied bilateral L5 transverse processes. Other bones of the osseous pelvis: No appreciable fractures or malalignment. Hip joints are not well assessed. Joint fluid and bursae: No appreciable effusions, synovitis, or bursitis. Musculature and tendons: Musculature of the osseous pelvis appears symmetric. Imaged tendons are intact. Intrapelvic soft tissues: There is wall thickening at the rectum, potentially corresponding to known Crohn's disease. No appreciable surrounding fat stranding on these images. No appreciable intraperitoneal free fluid. MR/MR pelvis wo con IMPRESSION: 1. Normal sacroiliac joints. No evidence of sacroiliitis. 2. Jyggzbbh-ua-ylfyel degenerative disc disease at L4-L5 with a diffuse disc bulge that produces at least mild central canal and bilateral neural foraminal narrowing. 3. Circumferential wall thickening at the rectum, potentially corresponding to chronic changes of the known Crohn's disease.
--- NOTE | ~2024-06-03 | XR_ITS ---
EXAMINATION: XR ELBOW, RIGHT CLINICAL INFORMATION: Arthritis symptoms for years . Lower back pain radiating to hips and legs. Right worse than left. No known injury. COMPARISON: None available. TECHNIQUE: AP, lateral, and oblique views of the right elbow. FINDINGS: The bones and soft tissues are normal. No fracture or joint effusion. Alignment is anatomic. Joint spaces are maintained. XR/XR elbow RT 2V IMPRESSION: -Normal right elbow. -No joint effusion or arthritic changes. Electronically signed by: Leon Fernandez MD 08/25/2024 09:43 AM EDT
== END 2024-06-03 08:18 | disposition home or self-care (01) ==
LOC: HO.MRI 08:17
PROVIDERS: PCP Nurse Practitioner Family; Visit Provider Internal Medicine Rheumatology
DX: M53.3 Sacrococcygeal disorders, not elsewhere classified (principal); K52.9 Noninfective gastroenteritis and colitis, unspecified; M53.86 Other specified dorsopathies, lumbar region; M54.50 Low back pain, unspecified; M25.551 Pain in right hip
CPT/HCPCS: 72195; 72202; 73070; 73562

== ENCOUNTER 2024-06-03 09:24 | Outpatient (REF) | payer OTHER, SELFPAY ==
[2024-06-03 11:05] LABS: Albumin Level 4.4 g/dL (3.5-5.0); Calcium 10.4 mg/dL (8.4-10.2)
[2024-06-03 11:07] LABS: Parathyroid Hormone Intact 95.7 pg/mL (8.7-77.1)
[2024-06-03 11:22] LABS: Vitamin D 25-OH Total 57.5 ng/mL (>30)
[2024-06-06 21:28] LABS: Gliadin Deamidated IgG Ab <1.0 U/mL
[2024-06-07 02:58] LABS: Lyme Abs Screen <0.90 index
== END 2024-06-03 09:25 | disposition home or self-care (01) ==
LOC: HO.XRAY 09:24
PROVIDERS: PCP Internal Medicine; Visit Provider Internal Medicine Rheumatology
DX: K52.9 Noninfective gastroenteritis and colitis, unspecified (principal)
CPT/HCPCS: 36415; 82040; 82306; 82310; 82550; 83970; 86258; 86617; 86618

== ENCOUNTER → 2024-06-03 10:40 | Outpatient (BNV) | payer OTHER, SELFPAY | PROVIDERS: PCP Nurse Practitioner Family; Visit Provider Radiology Diagnostic Radiology | DX: M25.561 Pain in right knee (principal); M25.521 Pain in right elbow; M54.50 Low back pain, unspecified | CPT/HCPCS: 72202; 73070; 73562 ==

== ENCOUNTER 2024-06-09 14:59 | Outpatient (REF) | payer OTHER, SELFPAY ==
[2024-06-09 17:27] LABS: Albumin Level 4.5 g/dL (3.5-5.0); Calcium 10.1 mg/dL (8.4-10.2); Parathyroid Hormone Intact 91.9 pg/mL (8.7-77.1); Phosphorus 4.1 mg/dL (2.7-4.5)
[2024-06-09 17:40] LABS: Magnesium 2.1 mg/dL (1.6-2.6)
[2024-06-09 17:46] LABS: TSH reflex Free T4 1.34 uIU/mL (0.32-4.0)
[2024-06-10 20:19] LABS: Calcium, Ionized 5.3 mg/dL (4.7-5.5)
== END 2024-06-09 15:00 | disposition home or self-care (01) ==
LOC: HO.LAB 14:59
PROVIDERS: PCP Internal Medicine; Visit Provider Student in an Organized Health Care Education/Training Program
DX: E21.3 Hyperparathyroidism, unspecified (principal)
CPT/HCPCS: 36415; 82040; 82310; 82330; 83735; 83970; 84100; 84443

== ENCOUNTER 2024-06-09 14:59 | Outpatient (AMB) | payer OTHER, SELFPAY ==
[2024-06-09 15:03] VITALS: BP 102/76; PULSE 79; BMI 24.7
--- NOTE | 2024-06-09 15:03 | A.OFFVIS_ITS ---
Vital Signs 06/09/24 15:03 Height 5 ft 2 in Weight 134 lb 14.766 oz BMI 24.7 BP 102/76 Blood Pressure Location Lt brachial Position Sitting Pulse 79 Pulse Source Pulse Oximeter Intake Visit Reasons: Elevated PTH-confirmed Intake Note: Patient present today for elevated PTH follow up visit. 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 Accompanied by: Self / Same As Patient Allergies cephalexin Allergy (Unknown, Verified 06/09/24 15:06) RASH Penicillins Allergy (Unknown, Verified 06/09/24 15:06) RASH Sulfa (Sulfonamide Antibiotics) Allergy (Unknown, Verified 06/09/24 15:06) RASH azithromycin [From Zithromax Z-Zackary] Allergy (Verified 06/09/24 15:06) Unknown sulfamethoxazole [From Bactrim] Allergy (Verified 06/09/24 15:06) Unknown trimethoprim [From Bactrim] Allergy (Verified 06/09/24 15:06) Unknown clindamycin Adverse Reaction (Mild, Verified 06/09/24 15:06) Itching Medication List - Last Reconciled 06/09/24 by Jaz Chapa MD acetone (urine) test (Ketostix strips) As directed apixaban 5 mg PO BID ascorbate calcium (vitamin C) 500 mg PO DAILY mxtratz-zddywdbmfainl-dstjiiur 250-250-65 mg (Excedrin Migraine) 1 tab PO DAILY PRN atorvastatin 40 mg PO DAILY blood sugar diagnostic (FreeStyle Lite Strips) As directed test 4 times a day blood-glucose meter (FreeStyle Lite Meter kit) As directed blood-glucose meter,continuous (Dexcom G7 Steam Table Worker) As directed blood-glucose sensor (Dexcom G7 Sensor device) APPLY DIRECTED TO TEST BLOOD SUGAR CHANGE OUT EVERY 10 DAYS cholecalciferol (vitamin D3) 25 mcg PO DAILY ciprofloxacin HCl (Cipro) 250 mg PO BID 3 days ferrous sulfate 325 mg PO DAILY ferrous sulfate 325 mg PO DAILY gabapentin 300 mg PO TID 90 days hyoscyamine sulfate ER 0.375 mg PO BID insulin glargine U-300 conc (Toujeo SoloStar U-300 Insulin) 14 units subcut DAILY insulin lispro 1 sliding scale dose subcut TIDAC insulin lispro (Humalog KwikPen (U-100) Insulin) inject 1 unit for every 15 grams of carbohydrates subcutaneously 3 times a day; insulin lispro (Humalog U-100 Insulin) Infuse up to 50 units per day via insulin pump subcutaneously; lancets (Network Contract SolutionsTouch Delica Plus Lancet) As directed test 3 times a day linaclotide (Linzess) 290 mcg PO DAILY loratadine 10 mg PO DAILY lorazepam 0.5 mg PO BEDTIME PRN multivitamin 1 tab PO DAILY nystatin 1,000,000 units PO BID pantoprazole 40 mg PO BID paroxetine HCl ER 25 mg PO DAILY pen needle, diabetic (BD Monica 2nd Gen Pen Needle) USE 1 PEN NEEDLE UP TO 4 TIMES DAILY; spironolactone mg PO ustekinumab (Stelara) 90 mg subcut Q8W HPI Comments Details: 43-year-old female with past medical history significant for IBD, Kaz coming in today for initial evaluation of elevated PTH Elevated PTH Was complaining of fatigue which is why PTH and calcium levels were tested. Labs from 05/2024 showed calcium of 10.4 mg/dL with albumin of 4.5 grams/deciliter, vitamin-D 57.5 ng/mL and PTH of 95.7 pg/mL. Normal kidney function. no calcium supplements no kidney stones, 2023: kidneys unremarkable on abdominal CT scan, patient denies any hematuria no increased urination, no increased thirst, no abdominal pain currently but does have it with episodes of IBD has IBD and constipation is on Linzess following with GI at [facility], Dr. Keenan no fractures, bone denisty March 2023: normal 06/18: PTH 95.7, Ca 10.4, albumin 4.4, vitamin D 57.5 no calcium disorders in family , no kidney stones in the family has GERD and Barretts esophagus at EG junction, history of resolved pituitary adenoma, note: Consider MEN1 if patient has hyperparathyroidism on PPI 40 mg daily History of pituitary adenoma in the past: Resolved In May of 2023 when she was admitted in the hospital she was noted to have a 3 mm hypoenhancing lesion in the pituitary, that subsequently resolved on MRI repeated in October of 2023 Pituitary workup was unremarkable at that time no vision changes, intermittent headaches, no nipple discharge KAZ: not addressed today that she is currently not on any insulin. She wears a Dexcom G7 and blood sugars have been within range. Review of systems Constitutional: no fevers, chills. Has been having weight loss HEENT: no changes in vision Cardiac: No chest pain, discomfort or palpitations. Pulmonary: No SOB : no burning micturition, dysuria or increase in urinary frequency General: sitting comfortably in bed in no acute distress HEENT: normocephalic/atraumatic, moist oral mucosa Neck: supple Normal pulmonary effort Abd: not distended, no tenderness Extremities: no edema, no signs of myxedema Neuro: AAO x3, Speech: normal, no facial droop, moving all 4 extremities [facility] Medical History (Updated 06/09/24 @ 16:07 by Jaz Chapa MD) Hyperparathyroidism Barretts esophagus Allergic rhinitis GERD (gastroesophageal reflux disease) Diverticulitis IBS (irritable bowel syndrome) Pituitary abnormality Hx of sigmoidoscopy Pituitary adenoma Vitamin D deficiency Iron deficiency Normal pelvic exam Annual physical exam 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 FPC (current) use of insulin 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), managed as type 1 Elevated cholesterol Anxiety Crohn's disease Postlaminectomy syndrome of lumbar region Diabetes type 1, controlled Chronic pain syndrome 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 [employer] Cognitive needs: No Hearing needs: No Vision needs: Yes Physical Exam Vital Signs: Last Vital Signs Pulse 79 06/09/24 15:03 BP 102/76 06/09/24 15:03 BMI result Body Mass Index 24.7 Results Reviewed Results Reviewed: Laboratory Tests 11/25/18 09/04/22 03/24/23 10:06 06:34 14:13 Creatinine Calcium 9.4 9.3 9.0 Albumin 25-OH Vitamin D Total PTH Intact 05/12/23 05/15/23 05/25/23 14:52 13:19 Unknown Creatinine Calcium 9.0 9.6 D 8.1 L D Albumin 25-OH Vitamin D Total PTH Intact 05/26/23 05/27/23 09/28/23 03:27 06:55 14:15 Creatinine Calcium 7.7 L 8.1 L 9.4 D Albumin 25-OH Vitamin D Total PTH Intact 10/08/23 11/09/23 06/03/24 17:27 14:53 09:55 Creatinine 0.85 Calcium 9.5 10.2 D 10.4 H Albumin 4.4 25-OH Vitamin D Total 57.5 PTH Intact 95.7 H Assessment & Plan Assessment & Plan (1) Hyperparathyroidism: Code(s): E21.3 - Hyperparathyroidism, unspecified Category: Medical Plan: 43-year-old female with past medical history significant of KAZ, IBD coming in today for initial evaluation of elevated PTH level. PTH level elevated at 95.7 05/2024. No PTH levels done in the past. Calcium noted to be at 10.4 which is high however albumin level also noted to be at 4.4, thickening the calcium level for the albumin, calcium level is actually normal. He will take an ionized calcium. If her calciums are normal, could she have a component of possibly normal calcium and hyperparathyroidism. Discussed with the patient that we will repeat labs including ionized calcium to see if she had any has elevated calcium levels. Her kidney functions normal. Discussed with the patient that there are 2 types of hyperparathyroidism, secondary and primary. Primary means that there is autonomous production of PTH levels. Unlikely that she has secondary hyperparathyroidism given that she has good vitamin-D levels, her creatinine is normal. Even if she has normal calcium and hyperparathyroidism, and indications for surgery the same as primary hyperparathyroidism. In her case she does not have any kidney stones, her bone density was unremarkable recently, she has not had any fractures, next steps would be to evaluate for urine calcium levels if she is noted have elevated PTH levels on repeat testing. She does have some nonspecific symptoms, however likely unrelated to her calcium levels which are normal. Plan: -ordered repeat blood work -follow-up in 8 weeks Plan See above Orders: Orders Albumin Level Today E21.3 - Hyperparathyroidism, unspecified Calcium, Ionized Today E21.3 - Hyperparathyroidism, unspecified Parathyroid Hormone Intact Today E21.3 - Hyperparathyroidism, unspecified Magnesium Today E21.3 - Hyperparathyroidism, unspecified Calcium Today E21.3 - Hyperparathyroidism, unspecified Phosphorus Today E21.3 - Hyperparathyroidism, unspecified TSH reflex Free T4 Today E21.3 - Hyperparathyroidism, unspecified Patient Instructions: do labs Coding Level of Care Code Est Pt Level 4 (74027) Diagnoses Hyperparathyroidism E21.3
== END 2024-06-09 16:11 | disposition home or self-care (01) ==
PROVIDERS: PCP Internal Medicine; Visit Provider Student in an Organized Health Care Education/Training Program
DX: E21.3 Hyperparathyroidism, unspecified (principal)
CPT/HCPCS: 99214

== ENCOUNTER 2024-06-20 11:18 | Outpatient (REF) | payer OTHER, SELFPAY ==
[2024-06-21 04:49] LABS: HBS Num1 1.08 mIU/mL (0-7.99); HBc Num1 0.13 S/CO (0.00-0.79); HBsAGNum1 0.53 S/CO (0.00-0.99); Hepatitis B Core Antibody Nonreactive (Nonreactive); Hepatitis B Surface Antigen Negative (Negative); ~Hepatitis B Surface Antibody NONREACTIVE (Nonreactive)
[2024-06-22 22:47] LABS: TS Negative Control Passed; TS Panel A 0; TS Panel B 0; TS Positive Control Passed; TSpotTB Negative (Negative)
== END 2024-06-20 11:19 | disposition home or self-care (01) ==
LOC: HO.LAB 11:18
PROVIDERS: PCP Internal Medicine; Visit Provider Student in an Organized Health Care Education/Training Program
DX: K50.119 Crohn's disease of large intestine with unspecified complications (principal)
CPT/HCPCS: 36415; 86481; 86704; 86706; 87340

== ENCOUNTER 2024-06-28 12:47 | Outpatient (REF) | payer OTHER, SELFPAY ==
[2024-07-05 00:14] LABS: Calprotectin, Fecal 60 mcg/g
== END 2024-06-28 12:48 | disposition home or self-care (01) ==
LOC: HO.LNP 12:47
PROVIDERS: Visit Provider Student in an Organized Health Care Education/Training Program
DX: K50.119 Crohn's disease of large intestine with unspecified complications (principal)
CPT/HCPCS: 83993

== ENCOUNTER 2024-07-05 08:46 | Outpatient (AMB) | payer OTHER, SELFPAY ==
--- NOTE | 2024-07-05 08:49 | MHC.PC.OV ---
Vital Signs 07/05/24 08:57 Height 5 ft 2 in Weight 136 lb 6 oz BMI 24.9 BP 104/66 Blood Pressure Location Rt brachial Position Sitting Pulse 88 Pulse Source Pulse Oximeter Pulse Oximetry (%) 99 Intake Visit Reasons: transfer care from DR Briceño Intake Note: pt is here for transfer of care from Dr. Briceño Pull Out Operator Required: No Accompanied by: Self / Same As Patient Allergies cephalexin Allergy (Unknown, Verified 07/05/24 09:00) RASH Penicillins Allergy (Unknown, Verified 07/05/24 09:00) RASH Sulfa (Sulfonamide Antibiotics) Allergy (Unknown, Verified 07/05/24 09:00) RASH azithromycin [From Zithromax Z-Zackary] Allergy (Verified 07/05/24 09:00) Unknown sulfamethoxazole [From Bactrim] Allergy (Verified 07/05/24 09:00) Unknown trimethoprim [From Bactrim] Allergy (Verified 07/05/24 09:00) Unknown clindamycin Adverse Reaction (Mild, Verified 07/05/24 09:00) Itching Tobacco use date assessed: 07/05/24 Dental Screening Dental Screen Date: 07/05/24 Did you have a dental visit in the last 12 months?: Yes Did you have a dental problem in the last 6 months where you did not have access to dental care?: No Was dental information given to patient?: Patient has dentist HPI transfer care from DR Briceño HPI Details New pt to me. crohns: Dr. Correa (here), and seeing a provider at [facility]. Has been stable. (intermittent diarrhea with blood, though denies any dizziness, fatigue). Diabetes: seeing endo, in the upper 5s for A1c. Denies polyuria, polydipsia, and neuropathy. 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), managed as type 1 Elevated cholesterol Anxiety Postlaminectomy syndrome of lumbar region Diabetes type 1, controlled Chronic pain syndrome 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 1. Little interest or pleasure in doing things: not at all 2. Feeling down, depressed, or hopeless: not at all 3. Trouble falling or staying asleep, or sleeping too much: not at all 4. Feeling tired or having little energy: several days 5. Poor appetite or overeating: several days 6. Feeling bad about yourself - or that you are a failure or have let yourself or your family down: not at all 7. Trouble concentrating on things, such as reading the newspaper or watching television: several days 8. Moving or speaking so slowly that other people could have noticed. Or the opposite - being so fidgety or restless that you have been moving around a lot more than usual: not at all 9. Thoughts that you would be better off or of hurting yourself in some way: not at all Total score: 3 Depression Screening Interpretation: Negative Depression Screening Done: Yes 93166 - PHQ-9 Billing: Yes Source: Developed by Drs. Luis Ferraro, Sandra Miller, En Cerspo and colleagues, with an educational alyssa from [employer]. Thrive Questionnaire Date Thrive assessed: 07/05/24 I am a: Patient What is your living situation today?: I have a steady place to live Within the past 12 months, did the food you bought not last and you didn't have the money to get more?: Never true Within the past 12 months, did you worry whether your food would run out before you got money to buy more?: Never true Do you have trouble paying for medicines?: No Do you have trouble getting transportation to medical appointments?: No Do you have trouble paying your heating and electricity bill?: No Do you have trouble taking care of your child, family member or friend?: No Do you have trouble with day-to-day activities such as bathing, preparing meals, shopping, managing finances, etc.?: No Are you currently unemployed and looking for a job?: No Are you interested in more education?: No Please select the resources that you would like help with: None Currently or been in a relationship where the following occur: No concerns reported THRIVE Score: 0 AUDIT C Alcohol Use Questionnaire (AUDIT-C) 1. How often do you have a drink containing alcohol?: Monthly or less 2. How many drinks containing alcohol do you have on a typical day when you are drinking?: 1 or 2 3. How often do you have six or more drinks on one occasion?: Never Total Score: 1 Score Reviewed/Action Taken: Yes RODOLFO-7 AMB Questionnaire RODOLFO-7 Date RODOLFO - 7 assessed: 07/05/24 Feeling nervous, anxious, or on edge: 0 = Not at all Not being able to stop or control worryin = Not at all Worrying too much about different things: 0 = Not at all Trouble relaxin = Several days Being so restless that it is hard to sit still: 0 = Not at all Becoming easily annoyed or irritable: 0 = Not at all Feeling afraid as if something awful might happen: 0 = Not at all Total RODOLFO-7 score (0-4 normal; 5-9 mild; 10-14 moderate; 15-21 severe): 1 Source: Developed by Sandra Malloy Kurt Kroenke and colleagues, with an educational alyssa from [employer]. RODOLFO-7 Assessment Billing RODOLFO-7 Assessment Tool: RODOLFO-7 Assessment 87513 Review of Systems Const Reports as per HPI Physical exam (Primary Care) Vital Signs: Last Vital Signs Pulse 88 07/05/24 08:57 BP 104/66 07/05/24 08:57 Pulse Ox 99 07/05/24 08:57 BMI result Body Mass Index 24.9 Tobacco/Smoking Status: Tobacco use Status Tobacco use date assessed 07/05/24 07/05/24 09:02 Patient Tobacco Use Status Never used Tobacco 07/05/24 08:49 e-Cigarette/Vaping Use Never Used 07/05/24 08:49 PHQ-9: PHQ-9 Score PHQ-9: Total score 3 07/05/24 09:30 Depression Screening Interpretation: Negative Thrive Assessment: Date of Thrive Assessment Date Thrive assessed 07/05/24 07/05/24 09:02 Currently or been in a relationship where the following occur: No concerns reported Const General: cooperative Orientation/consciousness: patient oriented x3 Resp Effort & Inspection: normal respiratory effort Auscultation: clear to auscultation bilaterally Cardio Rate: regular rate Rhythm: regular rhythm Heart sounds: S1 normal heart sound present and S2 normal heart sound present Neuro General: patient oriented x3 Psych Appearance: grossly normal Mental Status: mental status grossly normal Speech and movement: Normal speech and movement present Affect: normal affect Attitude: cooperative Thought process: Normal thought process present Thought content: Normal thought content present Insight: Good insight present (Psych) Judgement: Good judgement present (Psych) Assessment and Plan Assessment & Plan (1) Diabetes type 1, controlled: Comment: f/u [facility] Code(s): E10.9 - Type 1 diabetes mellitus without complications Plan: Seeing endo (2) Crohn's disease: Comment: dx at age 16 AZAchol SSZ Immuran ineffective Humira [id number] ineffective Stelara since 2020 partially effective Code(s): K50.90 - Crohn's disease, unspecified, without complications Plan: Seeing GI Plan The patient agreed to the use of a medical assistant secretary for this encounter. Scribed for KATELYNN Dempsey by bernice Keita scribe, on 07/05/2024 at 09:30 EST. Orders: Orders Complete Blood Count Auto Diff Today E10.9 - Type 1 diabetes mellitus without complications, K50.90 - Crohn's disease, unspecified, without complications Comprehensive [place]. Panel Fast Today E10.9 - Type 1 diabetes mellitus without complications, K50.90 - Crohn's disease, unspecified, without complications UA CC w/rflx Micro + Cult Today E10.9 - Type 1 diabetes mellitus without complications, K50.90 - Crohn's disease, unspecified, without complications Lipid Panel Today E10.9 - Type 1 diabetes mellitus without complications, K50.90 - Crohn's disease, unspecified, without complications TSH reflex Free T4 Today E10.9 - Type 1 diabetes mellitus without complications, K50.90 - Crohn's disease, unspecified, without complications Coding Level of Care Code New Pt Level 3 (48605) Diagnoses Diabetes type 1, controlled E10.9 Crohn's disease K50.90 Additional Codes RODOLFO-7 Assessment Billing - RODOLFO-7 Assessment Tool: RODOLFO-7 Assessment 79272 ([id number])
[2024-07-05 08:57] VITALS: BP 104/66; PULSE 88; O2SAT 99; BMI 24.9
== END 2024-07-05 10:53 | disposition home or self-care (01) ==
PROVIDERS: PCP Internal Medicine; Visit Provider Nurse Practitioner Family
DX: E10.9 Type 1 diabetes mellitus without complications (principal); K50.90 Crohn's disease, unspecified, without complications
CPT/HCPCS: 99203

== ENCOUNTER 2024-07-08 08:00 | Outpatient (REF) | payer OTHER, SELFPAY ==
[2024-07-08 18:21] LABS: Total Volume 24 Hour Urine 550 mL
[2024-07-08 18:31] LABS: Creatinine, 24Hr Urine 0.9 G/Day (1.0-2.0); Creatinine, mg/dL 158.91
[2024-07-11 18:37] LABS: Calcium, 24 Hr Urine 103 mg/24 h; Calcium/Creatinine Ratio 130 mg/g creat (30-275); Creatinine 24Hr Urine 0.79 g/24 h (0.50-2.15)
== END 2024-07-08 08:01 | disposition home or self-care (01) ==
LOC: HO.HMGCLNP 08:00
PROVIDERS: PCP Internal Medicine; Visit Provider Student in an Organized Health Care Education/Training Program
DX: E21.3 Hyperparathyroidism, unspecified (principal)
CPT/HCPCS: 82340; 82570

== ENCOUNTER 2024-08-04 14:09 | Outpatient (AMB) | payer OTHER, SELFPAY ==
--- NOTE | 2024-08-04 14:11 | A.OFFVIS_ITS ---
Vital Signs 3 08/04/24 14:12 Height 5 ft 2 in Weight 138 lb 14.259 oz BMI 25.4 BP 100/80 Blood Pressure Location Rt brachial Position Sitting Pulse 88 Pulse Source Pulse Oximeter Intake Visit Reasons: Elevated PTH/T1DM KAZ-conf Intake Note: Patient presents today for PTH/T1DM KAZ ollow up visit. Last Diabetic Eye exam: 11/2023 Last Podiatry Visit: Doesn't have one Random Glucose: 146 [mg/dl HgA1c: 6.2% Group Exercise Class Instructor Required: No Accompanied by: Self / Same As Patient Allergies cephalexin Allergy (Unknown, Verified 08/04/24 14:17) RASH Penicillins Allergy (Unknown, Verified 08/04/24 14:17) RASH Sulfa (Sulfonamide Antibiotics) Allergy (Unknown, Verified 08/04/24 14:17) RASH azithromycin [From Zithromax Z-Zackary] Allergy (Verified 08/04/24 14:17) Unknown sulfamethoxazole [From Bactrim] Allergy (Verified 08/04/24 14:17) Unknown trimethoprim [From Bactrim] Allergy (Verified 08/04/24 14:17) Unknown clindamycin Adverse Reaction (Mild, Verified 08/04/24 14:17) Itching HPI Comments Details: 43-year-old female with past medical history significant for IBD, Kaz coming in today for follow up of elevated PTH and KAZ Elevated PTH Was complaining of fatigue which is why PTH and calcium levels were tested. Labs from 05/2024 showed calcium of 10.4 mg/dL with albumin of 4.5 grams/deciliter, vitamin-D 57.5 ng/mL and PTH of 95.7 pg/mL. Normal kidney function. no calcium supplements no kidney stones, 2023: kidneys unremarkable on abdominal CT scan, patient denies any hematuria no increased urination, no increased thirst, no abdominal pain currently but does have it with episodes of IBD has IBD and constipation is on Linzess following with GI at [facility], Dr. Keenan no fractures, bone denisty March 2023: normal z scores 06/18: PTH 95.7, Ca 10.4, albumin 4.4, vitamin D 57.5 Repeat labs May 2024 showed PTH of 91, calcium of 10.1, ionized calcium 5.3 which is normal Labs in June 2024 showed 24 hour urine calcium of 103 Currently not taking any vitamin D Was taking it up unit l May not sure what dose Not on calcium supplements Currenlty not eating milk, cheese, yogurt no calcium disorders in family , no kidney stones in the family has GERD and Barretts esophagus at EG junction, history of resolved pituitary adenoma, note: Consider MEN1 if patient has hyperparathyroidism on PPI 40 mg daily History of pituitary adenoma in the past: Resolved In May of 2023 when she was admitted in the hospital she was noted to have a 3 mm hypoenhancing lesion in the pituitary, that subsequently resolved on MRI repeated in October of 2023 Pituitary workup was unremarkable at that time no vision changes, intermittent headaches, no nipple discharge KAZ: type 1/KAZ diagnosed 2015, who presents for management of diabetes. She was found to have + RODOLFO 65 antibodies in 2010 when she was trying to donate a kidney to her father. 2011 RODOLFO was 18.5 and in 2014 was 8.9, negative islet cell antibodies, she had detectable C-peptide and insulin level. Past medical history: DM1 (KAZ), 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, Chrone's disease, Raynaud's diesease Father: has type 2 DM no one has Type 1. Diabetes medications: peviously was on Toujeo 14 units, Humalog Insulin to carb ratio 1u:15g and correction of 1 unit for every 50mg/dl above 150mg/dl). she is currently not on any insulin. Stopped December 2023 A1c 6.2 % POC 5.8 % A1c in February 2024 She wears a Dexcom G7 Continuous glucose sensor Interpretation from Jul 22 to August 04 Average glucose : 134 mg/dl Standard deviation: 35 mg /dl GMI 6.5% % readings above target: 14% % readings in hypoglycemic range: <1% % readings in target: 85% Low alert is set at: 75 High alert is set at: not sure Blood glucose patterns observed: very well controlled, mostly in range, few post prandial highs. Complications Neuropathy: she does have paresthesias in feet but had Raynauds and radiculopathy Last eye visit: 12/19, no retinopathy Kidney function is normal No PR or stroke Review of systems Constitutional: no fevers, chills. Has been having weight loss HEENT: no changes in vision Cardiac: No chest pain, discomfort or palpitations. Pulmonary: No SOB : no burning micturition, dysuria or increase in urinary frequency General: sitting comfortably in bed in no acute distress HEENT: normocephalic/atraumatic, moist oral mucosa Neck: supple Normal pulmonary effort Abd: not distended, no tenderness Extremities: no edema, no signs of myxedema Neuro: AAO x3, Speech: normal, no facial droop, moving all 4 extremities [facility] Medical History (Updated 07/05/24 @ 09:34 by KATELYNN Argueta) Crohn's disease Hyperparathyroidism Barretts esophagus Allergic rhinitis GERD (gastroesophageal reflux disease) Diverticulitis IBS (irritable bowel syndrome) Pituitary abnormality Hx of sigmoidoscopy Pituitary adenoma Vitamin D deficiency Iron deficiency Normal pelvic exam Annual physical exam 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), managed as type 1 Elevated cholesterol Anxiety Postlaminectomy syndrome of lumbar region Diabetes type 1, controlled Chronic pain syndrome 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 [employer] Cognitive needs: No Hearing needs: No Vision needs: Yes Physical Exam Vital Signs: Last Vital Signs Pulse 88 08/04/24 14:12 BP 100/80 08/04/24 14:12 BMI result Body Mass Index 25.4 Office Procedures Glucose Monitoring Details Details: SEE hpi 16981 - Glucose monitoring, continuous-physician I&R Procedure code (CPT) selection complete Results AMB Hemoglobin A1c 2 AMB Hemoglobin A1c 6.2 % Last Edit by SAKINA Hernandez on 08/04/24 14:47 Results Reviewed Results Reviewed: Laboratory Last Values Hgb A1c (Clinic) 6.2 % (4.0-6.0) H 08/04/24 14:24 Laboratory Tests 11/25/18 09/04/22 03/24/23 10:06 06:34 14:13 Creatinine Calcium 9.4 9.3 9.0 Albumin 25-OH Vitamin D Total PTH Intact 05/12/23 05/15/23 05/25/23 14:52 13:19 Unknown Creatinine Calcium 9.0 9.6 D 8.1 L D Albumin 25-OH Vitamin D Total PTH Intact 05/26/23 05/27/23 09/28/23 03:27 06:55 14:15 Creatinine Calcium 7.7 L 8.1 L 9.4 D Albumin 25-OH Vitamin D Total PTH Intact 10/08/23 11/09/23 06/03/24 17:27 14:53 09:55 Creatinine 0.85 Calcium 9.5 10.2 D 10.4 H Albumin 4.4 25-OH Vitamin D Total 57.5 PTH Intact 95.7 H Laboratory Tests 03/23/19 06/15/20 01/03/22 11:10 09:40 09:13 Creatinine Estimated GFR Hgb A1c (Clinic) C-Peptide 0.84 0.65 L 0.75 L Calcium Ionized Calcium Phosphorus Magnesium Albumin Triglycerides Cholesterol LDL Cholesterol, Calc HDL Cholesterol 25-OH Vitamin D Total TSH PTH Intact Ur 24 Hour Volume Ur Creatinine mg/dL Ur Creatinine 24 Hour Urine Microalbumin Microalb/Creat Ratio Ur Calcium 24 Hr Calcium/Creat 24 Hr 06/08/23 06/08/23 10/29/23 09:08 09:10 13:05 Creatinine 0.78 Estimated GFR > 60 Hgb A1c (Clinic) C-Peptide Calcium Ionized Calcium Phosphorus Magnesium Albumin Triglycerides 193 Cholesterol 150 LDL Cholesterol, Calc 76 HDL Cholesterol 36 25-OH Vitamin D Total TSH PTH Intact Ur 24 Hour Volume Ur Creatinine mg/dL Ur Creatinine 24 Hour Urine Microalbumin 10.0 Microalb/Creat Ratio 5.5 Ur Calcium 24 Hr Calcium/Creat 24 Hr 11/09/23 04/04/24 06/03/24 14:53 11:24 09:55 Creatinine 0.85 Estimated GFR > 60 Hgb A1c (Clinic) 5.8 C-Peptide Calcium 10.4 H Ionized Calcium Phosphorus Magnesium Albumin 4.4 Triglycerides Cholesterol LDL Cholesterol, Calc HDL Cholesterol 25-OH Vitamin D Total 57.5 TSH PTH Intact 95.7 H Ur 24 Hour Volume Ur Creatinine mg/dL Ur Creatinine 24 Hour Urine Microalbumin Microalb/Creat Ratio Ur Calcium 24 Hr Calcium/Creat 24 Hr 06/09/24 07/08/24 07/08/24 17:00 08:00 Unknown Creatinine Estimated GFR Hgb A1c (Clinic) C-Peptide Calcium 10.1 Ionized Calcium 5.3 Phosphorus 4.1 Magnesium 2.1 Albumin 4.5 Triglycerides Cholesterol LDL Cholesterol, Calc HDL Cholesterol 25-OH Vitamin D Total TSH 1.34 PTH Intact 91.9 H Ur 24 Hour Volume 550 Ur Creatinine mg/dL 158.91 Ur Creatinine 24 Hour 0.79 Urine Microalbumin Microalb/Creat Ratio Ur Calcium 24 Hr 103 Calcium/Creat 24 Hr 130 Assessment & Plan Assessment & Plan (1) 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 Subsequently noted to have low C-peptide levels, and used to be on insulin however in December 2023 she discontinued all insulin as she was having multiple lows and was barely on any dosage. She wears a Dexcom CGM, and she is in range 85% of the time. BMI 6.5%, A1c today in clinic was 6.2% with the lines lethargy PR. she is not having any significant lows, less than 1% hypoglycemia. She is above target only 14% of the time. It is very surprising to see how she is in range without any insulin while she was requiring insulin previously and was treated as a type 1 patient. She could possibly be in the honeymoon phase but that does not last so far out into her diagnosis which was made in 2014. Educated the patient about risk of developing diabetic ketoacidosis with symptoms of nausea, vomiting, abdominal pain, mental status changes, feeling ill. She does have urine ketone strips cyclin. She also has her prior insulin at home. It is good that she wears the Dexcom which can monitor her blood sugars closely. If she has any of the above, she will reach out to us/go to the emergency room. She might benefit from a low dose of basal insulin, and I might start her on 5-8 units, but I will check her C-peptide levels 1st. I will repeat her C-peptide levels. Her blood pressure is at goal. Advised her to do 150 minutes of exercise in a week for maintenance of healthy weight No history of kidney disease, she is due for urine microalbumin. Plan: -repeat C-peptide and glucose levels if done-ordered BMP, urine microalbumin/creatinine ratio, LDL levels with lipid panel -follow up in 3 months (2) Hyperparathyroidism: Code(s): E21.3 - Hyperparathyroidism, unspecified Category: Medical Plan: PTH level elevated at 95.7 05/2024. No PTH levels done in the past. Calcium noted to be at 10.4 which is high however albumin level also noted to be at 4.4, correcting the calcium level for the albumin, calcium level is actually normal. Ionized calcium levels also noted to be normal. Repeat PTH level in May 2024 noted to be 91. She has normal vitamin-D levels. Given normal kidney function as well, this is not secondary hyperparathyroidism. 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 , and indications for surgery the same as primary hyperparathyroidism. In her case she does not have any kidney stones, her bone density was unremarkable recently, she has not had any fractures, her urine calcium levels are normal. Her only indication is age less than 50, however given normal calcium levels, I do not want to jump towards surgical management. At this time we will continue to monitor her with repeat labs in 1 year. I have asked her to reach out sooner if she has fractures or develops kidney stones. She does have poor calcium intake, especially in the setting of IBD I have asked her to take at least 2000 units of vitamin-D daily, and calcium rich foods 2-3 servings daily to allow a 1000 mg of calcium in diet. She does have some nonspecific symptoms, however likely unrelated to her calcium levels which are normal. Plan: -plan to repeat blood work in 1 year -vitamin-D 1002 1000 units daily -calcium intake 1000 mg daily in diet with 2-3 servings of calcium rich foods Plan I spent 30 minutes in reviewing the record, seeing the patient and documenting in the medical record. Orders: Orders 2 Lipid Panel Today E13.9 - Other specified diabetes mellitus without complications C Peptide Today E13.9 - Other specified diabetes mellitus without complications Glucose Random Today E13.9 - Other specified diabetes mellitus without complications AMB Glucose Monitoring Today E13.9 - Other specified diabetes mellitus without complications AMB Hemoglobin A1c Today E10.9 - Type 1 diabetes mellitus without complications, Z13.9 - Encounter for screening, unspecified Basic Metabolic Panel Today E13.9 - Other specified diabetes mellitus without complications Microalbumin, Random (w Creat) Today E13.9 - Other specified diabetes mellitus without complications Patient Instructions: For parathyroid elevation: Take vitamin D 1000 to 2000 units daily, confirm the dose with me of what you are taking Take 2-3 calcium rich foods in your diet < such as 2% milk, or sugar free almond milk whihc is fortified or 2% cottage cheese No calcium supplements Repeat labs related to calcium in 1 year Let us know if you have kidney stones or blood in urine or a fracture For your diabetes Do fasting blood work and urine test As discussed if you start experiencing, high blood sugars, nausea, vomiting, abdominal pain get in touch during office hours or go to ED if after hours Coding Level of Care Code Est Pt Level 4 (48186) Diagnoses 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
[2024-08-04 14:12] VITALS: BP 100/80; PULSE 88; BMI 25.4
[2024-08-15 09:11] LABS: Glucose, Whole Blood 146 mg/dL (60-115)
== END 2024-08-04 15:00 | disposition home or self-care (01) ==
PROVIDERS: PCP Internal Medicine; Visit Provider Student in an Organized Health Care Education/Training Program
DX: E13.9 Other specified diabetes mellitus without complications (principal); E21.3 Hyperparathyroidism, unspecified; Z13.9 Encounter for screening, unspecified; E10.9 Type 1 diabetes mellitus without complications
CPT/HCPCS: 95251; 99214

== ENCOUNTER → 2024-08-04 14:09 | Outpatient (BNVA) | payer OTHER, SELFPAY | PROVIDERS: PCP Internal Medicine; Visit Provider Student in an Organized Health Care Education/Training Program | DX: E13.9 Other specified diabetes mellitus without complications (principal); E21.3 Hyperparathyroidism, unspecified | CPT/HCPCS: 82947; 83036 ==

== ENCOUNTER 2024-08-20 10:28 | Outpatient (REF) | payer OTHER, SELFPAY ==
--- NOTE | ~2024-08-20 | MM_ITS ---
EXAMINATION: MM SCREENING DIGITAL BREAST TOMOSYNTHESIS, BILATERAL CLINICAL INFORMATION: Screening. Asymptomatic. COMPARISON: Mammography: Comparison is made with available priors TECHNIQUE: Digital breast mammography with tomosynthesis is performed in both the craniocaudal and mediolateral oblique views along with computer-aided detection (CAD). FINDINGS: The breasts are heterogeneously dense, which may obscure small masses (ACR BI-RADS breast composition Category c). There are no significant masses, abnormal calcifications, or other abnormalities. MM/MM tomosynthesis screening BI IMPRESSION: No mammographic evidence of malignancy. ASSESSMENT: BI-RADS BI-RADS 1 - Negative RECOMMENDATION: Routine annual mammography screening. 1 year F/U This examination should not preclude the clinical evaluation of a suspicious palpable abnormality. This patient's information was entered into a reminder system with a target due date for their next mammogram. Electronically signed by: Estela White DO 08/30/2024 08:48 AM [facility]
[2024-08-20 11:09] LABS: MANUAL DIFF FLAG NO
[2024-08-20 11:46] LABS: Basophils Percent Auto 0.3 % (0-2); Eosinophils Absolute Auto 0.1 X10*3/uL (0.0-0.4); Eosinophils Percent Auto 0.9 % (0-4); Hematocrit 35.7 % (37.0-47.0); Hemoglobin 12.1 g/dl (12.0-16.0); Imm Gran Abs Auto 0.04 X10*3/uL (0.00-0.03); Imm Gran Pct Auto 0.5 % (0.0-0.4); Lymphocytes Absolute Auto 2.1 X10*3/uL (1.2-4.9); Lymphocytes Percent Auto 23.8 % (20-40); Mean Corpuscular HGB Conc 33.9 g/dl (31.0-35.0); Mean Corpuscular Hemoglobin 32.5 pg (27.0-33.0); Mean Platelet Volume 10.9 fL (9.4-12.3); Monocytes Absolute Auto 0.7 X10*3/uL (0.1-1.2); Monocytes Percent Auto 7.7 % (2-11); Neutrophils Absolute Auto 5.9 x10*3/uL (2.0-8.3); Neutrophils Percent Auto 66.8 % (45-73); Platelet Count 378 X10*3/uL (160-400); Red Blood Count 3.72 X10*6/uL (4.20-5.50); Red Cell Distribution Width 12.3 % (11.0-16.0); White Blood Count 8.8 X10*3/uL (4.8-10.8)
[2024-08-20 11:48] LABS: Alanine Aminotransferase 41 U/L (0-31); Albumin Level 4.3 g/dL (3.5-5.0); Alkaline Phosphatase 92 U/L (39-117); Anion Gap 14 (12-20); Aspartate Amino Transferase 42 U/L (5-31); Bilirubin Total 0.3 mg/dL (0.0-1.0); Blood Urea Nitrogen 27 mg/dL (9-16); Calcium 10.1 mg/dL (8.4-10.2); Carbon Dioxide 23 mmol/L (22-29); Chloride 106 mmol/L (96-108); Cholesterol 162 mg/dL (<200); Estimated Glomerular Filt Rate 58; Glucose Fasting 99 mg/dL (60-99); Glucose Random 98 mg/dL (60-115); HDL Cholesterol 70 mg/dL (>40); LDL Cholesterol Calculated 81 mg/dL (<100); Potassium 4.7 mmol/L (3.3-5.1); Sodium 138 mmol/L (135-145); Total Protein 7.3 g/dL (6.5-8.0); Triglycerides 58 mg/dL (<150)
[2024-08-20 11:53] LABS: Cholesterol 157 mg/dL (<200); HDL Cholesterol 69 mg/dL (>40); LDL Cholesterol Calculated 77 mg/dL (<100); Triglycerides 59 mg/dL (<150)
[2024-08-20 12:05] LABS: TSH reflex Free T4 1.67 uIU/mL (0.32-4.0)
[2024-08-20 13:59] LABS: Appearance Urine Clear; Color Urine Yellow; Glucose Urine UA Negative (Negative); Leukocyte Esterase Urine Negative (Negative); Nitrite Urine Negative (Negative); Specific Gravity - Urine >= 1.030 (1.005-1.025); Urine Blood Negative (Negative); Urine Ketones Trace mg/dL (Negative); Urine Protein Trace mg/dL (Neg-Trace)
[2024-08-20 14:17] LABS: Creatinine Urine 283.67 mg/dL
[2024-08-22 19:22] LABS: C Peptide 2.19 ng/mL (0.80-3.85)
== END 2024-08-20 10:29 | disposition home or self-care (01) ==
LOC: HO.MAMMO 10:28
PROVIDERS: PCP Nurse Practitioner Family; Referring Provider Student in an Organized Health Care Education/Training Program; Visit Provider Nurse Practitioner Family
DX: Z12.31 Encounter for screening mammogram for malignant neoplasm of breast (principal); E10.9 Type 1 diabetes mellitus without complications; K50.90 Crohn's disease, unspecified, without complications
CPT/HCPCS: 36415; 77063; 77067; 80048; 80053; 80061; 81003; 82043; 82570; 84443; 84681; 85025

== ENCOUNTER → 2024-08-20 10:30 | Outpatient (BNV) | payer OTHER, SELFPAY | PROVIDERS: PCP Nurse Practitioner Family; Referring Provider Student in an Organized Health Care Education/Training Program; Visit Provider Internal Medicine | DX: Z12.31 Encounter for screening mammogram for malignant neoplasm of breast (principal) | CPT/HCPCS: 77063; 77067 ==

== ENCOUNTER 2024-09-21 09:35 | Outpatient (REF) | payer OTHER, SELFPAY ==
--- NOTE | ~2024-09-21 | US_ITS ---
EXAMINATION: US COMPLETE ABDOMEN WITH LIVER ELASTOGRAPHY CLINICAL INFORMATION: Abnormal levels of serum enzymes. COMPARISON: None available. TECHNIQUE: Real-time imaging of the abdominal viscera. Noninvasive ultrasound liver fibrosis assessment is performed using Carmen ElastPQ point quantification shear wave elastography (pSWE) with a C5-2 MHz transducer. Multiple elastography samples are obtained. FINDINGS: PANCREAS: Head and body appear unremarkable. Tail not visualized. ABDOMINAL AORTA: The proximal, middle, and distal aortic segments are normal in caliber. INFERIOR VENA CAVA: Visualized portions are normal. LIVER: The liver appears unremarkable in size, contour and echogenicity. No focal lesion or intrahepatic biliary duct dilatation appreciated. The right lobe measures 12.1 cm in length. The left lobe measures 10.0 cm in length. Portal flow is towards the liver (hepatopetal). Shear wave liver elastography median stiffness is 1.39 m/s (reference: normal median stiffness is 1.3 m/s or less). IQR/median stiffness to assess sampling precision is 0.12 (reference: good quality data set is IQR/median stiffness of 0.15 or less). GALLBLADDER: The gallbladder is physiologically distended without evidence of stones, sludge, polyps, wall thickening or pericholecystic fluid. COMMON BILE DUCT: Normal in caliber measuring 0.2 cm in diameter. RIGHT KIDNEY: No hydronephrosis. No renal calculi or focal parenchymal lesion identified. The kidney measures 10.1 cm in maximum dimension. LEFT KIDNEY: No hydronephrosis. No renal calculi or focal parenchymal lesion identified. The kidney measures 9.5 cm in maximum dimension. SPLEEN: The spleen measures 7.8 cm in maximum dimension. FREE FLUID: None. US/US abdomen comp w elastography IMPRESSION: Liver elastography: In the absence of other known clinical signs, measurements rule out compensated advanced chronic liver disease. If there are known clinical signs, further testing may be needed for confirmation. REFERENCE: Society of Radiologists in Ultrasound Liver Stiffness Thresholds (2020): LIVER STIFFNESS THRESHOLDS: *Liver Stiffness equal or less than 1.3 m/s: High probability of being normal. *Liver Stiffness less than 1.7 m/s: In the absence of other known clinical signs, rules out compensated advanced chronic liver disease. *Liver Stiffness 1.7-2.1 m/s: Suggestive of compensated advanced chronic liver disease but need further test for confirmation. *Liver Stiffness over 2.1 m/s: Rules in compensated advanced chronic liver disease. *Liver Stiffness over 2.4 m/s: Suggestive of clinically significant portal hypertension. QUALITY OF DATA SET: *IQR/Median value equal or less than 0.15 implies a quality data set. *IQR/Median value over 0.15 implies a poor quality data set. SIGNIFICANT CHANGE FROM PRIOR EXAM: Significant change if liver stiffness measurement is 10% or greater from prior exam. OTHER CONSIDERATIONS: The stage of liver fibrosis may be overestimated in the setting of acute hepatitis, liver inflammation, elevated liver function tests, hepatic vascular congestion, obstructive cholestasis, non-fasting state, and infiltrative diseases such as amyloidosis and lymphoma. In some patients with NAFLD, the liver stiffness thresholds for compensated advanced chronic liver disease may be lower. In causes other than viral hepatitis and NAFLD, liver stiffness thresholds are not well established. Electronically signed by: Stephen Lynn MD 09/27/2024 04:22 PM [facility]
== END 2024-09-21 09:36 | disposition home or self-care (01) ==
LOC: HO.US 09:35
PROVIDERS: PCP Nurse Practitioner Family; Visit Provider Nurse Practitioner Family
DX: R74.8 Abnormal levels of other serum enzymes (principal)
CPT/HCPCS: 76700; 76981

== ENCOUNTER 2024-09-29 12:23 | Outpatient (REF) | payer OTHER, SELFPAY ==
[2024-09-29 13:50] LABS: Glucose Random 84 mg/dL (60-115)
[2024-09-29 14:10] LABS: Thyroid Stimulating Hormone 1.11 uIU/mL (0.32-4.0)
[2024-10-01 02:03] LABS: Follicle Stimulating Hormone 5.9 mIU/mL; Lutenizing Hormone 1.8 mIU/mL; Prolactin 5.5 ng/mL
[2024-10-04 19:48] LABS: Estradiol Ultra Sensitive 12 pg/mL
== END 2024-09-29 12:24 | disposition home or self-care (01) ==
LOC: HO.LAB 12:23
PROVIDERS: Absent Provider Student in an Organized Health Care Education/Training Program; PCP Nurse Practitioner Family; Visit Provider Nurse Practitioner Adult Health
DX: N91.5 Oligomenorrhea, unspecified (principal); E13.9 Other specified diabetes mellitus without complications
CPT/HCPCS: 36415; 82670; 82947; 83001; 83002; 84146; 84443

== ENCOUNTER 2024-10-03 09:03 | Outpatient (AMB) | payer OTHER, SELFPAY ==
--- NOTE | 2024-10-03 09:32 | AM.OFFVISNUR ---
Intake Visit Reasons: Hep B Intake Note: Pt arrived for first of 3 Hep B vaccines Allergies cephalexin Allergy (Unknown, Verified 08/04/24 14:17) RASH Penicillins Allergy (Unknown, Verified 08/04/24 14:17) RASH Sulfa (Sulfonamide Antibiotics) Allergy (Unknown, Verified 08/04/24 14:17) RASH azithromycin [From Zithromax Z-Zackary] Allergy (Verified 08/04/24 14:17) Unknown sulfamethoxazole [From Bactrim] Allergy (Verified 08/04/24 14:17) Unknown trimethoprim [From Bactrim] Allergy (Verified 08/04/24 14:17) Unknown clindamycin Adverse Reaction (Mild, Verified 08/04/24 14:17) Itching Immunizations Engerix-B (PF) 20 mcg/mL intramuscular suspension Performing [facility] Performing Location: [facility] Administered by: Yissel Jiménez RN on 10/03/24 09:32 Dose Route Admin Location Dispensed Lot Number Expiration Date [facility] Spray Gun Striper 1 mL IM Right Deltoid 1.0 mL [id number] 06/15/26 [id number] [employer] VIS Given Date VIS Provided VIS Publication Date 10/03/24 Single Vaccine 23 Eligibility Eligibility Date Funding Source Not [facility] Eligible 10/03/24 Private Assessment & Plan Assessment & Plan Orders: Orders Hepatitis B Adult Immunization Today Z23 - Encounter for immunization Medications: New Engerix-B (PF) (hepatitis B virus vacc.rec(PF)) 1 mL IM ONCE 1 mL 0RF NS Z23 - Encounter for immunization
--- OUTSIDE RECORDS SUMMARY | 2024-10-05 13:45 | XMS_ITS ---
Author Organization [facility] Address [address] [place] [address] Care Team Providers Care Butcher Fish Name Role Phone PRASANNAMC RANDOLPH Primary Care Provider Unavailrashida e Satinder Correa Jr REASON FOR VISIT wants call back Encounters Encounter Location Date Provider Diagnosis [facility] [address] [place] [address] 08/23/2024 Satinder Correa Jr PLAN OF TREATMENT Next Appt Details Provider Name:Satinder norman Jr, 11/03/2024 03:55:00 PM, [address], [address], [place], [address],
--- OUTSIDE RECORDS SUMMARY | 2024-10-05 13:45 | XMS_ITS ---
Author Organization [facility] Address [address] [place] [id number] Care Team Providers Care Phlebotomy Director Name Role Phone PRASANNAMC RANDOLPH Primary Care Provider Satinder Pisano Jr REASON FOR VISIT referral to pelvic floor PROBLEMS Problem Type ICD Code Onset Dates Problem Status W/U Status Risk SNOMED Code Notes Problem Crohn's disease of large intestine with rectal bleeding (K50.111) Active confirmed [id number] Encounters Encounter Location Date Provider Diagnosis [facility] [address] [place] [id number] 08/26/2024 Satinder Correa Jr Crohn's disease of large intestine with rectal bleeding K50.111 and Chronic idiopathic constipation K59.04 ASSESSMENTS Encounter Date Diagnosis Assessment Notes Treatment Notes Treatment Clinical Notes 08/26/2024 Crohn's disease of large intestine with rectal bleeding (ICD-10 - K50.111) 08/26/2024 Chronic idiopathic constipation (ICD-10 - K59.04) Physican order: Pelvic floor physical therapy. Evaluate and treat. Diagnosis: Crohn's disease of large intestine with rectal bleeding, K50.111 Chronic idiopathic constipation, K59.04 PLAN OF TREATMENT Treatment Notes Assessment Notes Chronic idiopathic constipation Physican order: Pelvic floor physical therapy. Evaluate and treat. Diagnosis: Crohn's disease of large intestine with rectal bleeding, K50.111 Chronic idiopathic constipation, K59.04 Next Appt Details Provider Name:Satinder norman Jr, 11/03/2024 03:55:00 PM, [address], [address], [place], [address],
--- OUTSIDE RECORDS SUMMARY | 2024-10-05 13:45 | XMS_ITS ---
Author Organization [facility] Address [address] [place] [address] Care Team Providers Care Asset Protection Specialist Name Role Phone PRASANNAMC RANDOLPH Primary Care Provider UnavailSatinder Romero Jr [phone] REASON FOR VISIT Had colon and egd at [facility] yesterday Encounters Encounter Location Date Provider Diagnosis [facility] [address] [place] [address] 08/03/2024 Satinder Correa Jr PLAN OF TREATMENT Next Appt Details Provider Name:Satinder norman Jr, 11/03/2024 03:55:00 PM, [address], [address], [place], [address],
--- OUTSIDE RECORDS SUMMARY | 2024-10-05 13:45 | XMS_ITS | Patient Health Record ---
Author Organization [facility] Address [address] [place] [address] Care Team Providers Care Director Furniture Name Role Phone [facility] PEDRO Primary Care Provider Satinedr Pisano Jr ALLERGIES Allergen (clinical drug ingredient) Drug/Non Drug Allergy documented on EMR Reaction Allergy Type Onset Date Status Sulfa Unknown Drug Allergy Active Penicillin Unknown Drug Allergy Active azithromycin Zithromax Z-Zackary Unknown Drug Allergy Active Keflex Unknown Drug Allergy Active sulfamethoxazole / trimethoprim Bactrim Unknown Drug Allergy Active RESULTS Component Value Reference Range Notes Creatinine Reviewed date:10/30/2023 02:52:13 PM Interpretation: Performing Lab:[facility], [address] [place] [phone] Notes/Report: Creatinine 0.78 0.5-1.4 mg/dL Estimated Glomerular Filt Rate > 60 NOTE: For -Russian individuals, multiply the result by 1.210. Chronic Kidney Disease: Estimated GFR < 60 mL/min/1.73m2 Severe Kidney Disease: Estimated GFR < 15 mL/min/1.73m2 Thiopurine Metabolites Reviewed date:11/04/2023 11:45:37 PM Interpretation: Performing Lab:[facility], [address] [place] [address] Notes/Report: 6-TGN 253 235-400 Result Units: pmol/8x10(8)RBC This test was developed and its analytical performance characteristics have been determined by [employer]. It has not been cleared or approved by the FDA. This assay has been validated pursuant to the CLIA regulations and is used for clinical purposes. 6-MMPN <500 <5700 Result Units: pmol/8x10(8)RBC These results are useful in assessing a patient's metabolism of azathioprine (AZA) or 6-mercaptopurine (6-MP). A 6-thioguanine (6-TG) level greater than 235 pmol/8x10(8) RBC has been associated with remission and very high levels have been associated with leucopenia. 6-methylmercaptopurine (6-MMP) levels greater than 5700 pmol/8x10(8) RBC may be associated with hepatoxicity. This test was developed and its analytical performance characteristics have been determined by [employer]. It has not been cleared or approved by the FDA. This assay has been validated pursuant to the CLIA regulations and is used for clinical purposes. THIS TEST WAS PERFORMED AT: [facility] [address] [address] JOSE FIELD MD Complete Blood Count Auto Di ff Reviewed date:10/30/2023 02:51:57 PM Interpretation: Performing Lab:[facility], [address] [place] [phone] Notes/Report: White Blood Count 7.6 4.8-10.8 X10*3/uL Red Blood Count 4.01 4.20-5.50 X10*6/uL Hemoglobin 13.3 12.0-16.0 g/dl Hematocrit 39.6 37.0-47.0 % Mean Corpuscular Volume 98.8 80.0-98.0 fL Mean Corpuscular Hemoglobin 33.2 27.0-33.0 pg Mean Corpuscular HGB Conc 33.6 31.0-35.0 g/dl Red Cell Distribution Width 14.5 11.0-16.0 % Platelet Count 467 160-400 X10*3/uL Mean Platelet Volume 10.2 9.4-12.3 fL Neutrophils Percent Auto 85.9 45-73 % Imm Gran Pct Auto 1.5 0.0-0.4 % Lymphocytes Percent Auto 10.8 20-40 % Monocytes Percent Auto 1.5 2-11 % Eosinophils Percent Auto 0.0 0-4 % Basophils Percent Auto 0.3 0-2 % NRBC Pct Auto 0.0 0.0-0.2 /100WBC Neutrophils Absolute Auto 6.5 2.0-8.3 x10*3/u L Imm Gran Abs Auto 0.11 0.00-0.03 X10*3/uL Lymphocytes Absolute Auto 0.8 1.2-4.9 X10*3/u L Monocytes Absolute Auto 0.1 0.1-1.2 X10*3/uL Eosinophils Absolute Auto 0.0 0.0-0.4 X10*3/u L Basophils Absolute Auto 0.0 0.0-0.2 X10*3/uL NRBC Abs Auto 0.000 0.0-0.012 X10*3/uL Erythrocyte Sedimentation Ra te Reviewed date:10/30/2023 02:51:52 PM Interpretation: Performing Lab:[facility], [address] [place] [phone] Notes/Report: Erythrocyte Sedimentation Rate 7 0-20 MM/HR Patients with polycythemia and many hemoglobin abnormalities may have depressed sed rates whereas patients with anemia may have elevated sed rates. Liver Panel Reviewed date:10/30/2023 02:52:09 PM Interpretation: Performing Lab:[facility], [address] [place] [phone] Notes/Report: Bilirubin Total 0.4 0.0-1.0 mg/dL Bilirubin Direct 0.2 0.0-0.5 mg/dL Aspartate Amino Transferase 16 5-31 U/L Alanine Aminotransferase 22 0-31 U/L Total Protein 7.3 6.5-8.0 g/dL Albumin Level 4.3 3.5-5.0 g/dL Alkaline Phosphatase 68 39-117 U/L Blood Urea Nitrogen Reviewed date:10/30/2023 02:52:02 PM Interpretation: Performing Lab:[facility], [address] [place] [phone] Notes/Report: Blood Urea Nitrogen 23 9-16 mg/dL [facility] Cro[facility] Reviewed date:11/09/2023 09:33:30 AM Interpretation: Performing Lab:[facility], [address] [place] [address] Notes/Report: [facility] Crohn's SEE NOTE SE E SCANNED RESULTS IN EMR CT abdomen pelvis w con Reviewed date:10/30/2023 02:51:48 PM Interpretation: Performing Lab: Notes/Report: [address] [address] [address] Scan Report Signed Patient: Judy Mulligan MR#: [id number] : 1980 Acct:[id number] Age/Sex: 43 / F ADM Date: 10/29/23 Loc: HO.CT Attending Dr: Satinder Correa MD Ordering Physician: Satinder Correa MD Date of Service: 10/29/23 Procedure(s): CT abdomen pelvis w IV con Accession Number(s): [id number] cc: Satinder Correa MD EXAMINATION: CT ABDOMEN AND PELVIS WITH CONTRAST CLINICAL INFORMATION: Crohn's disease with rectal bleeding. COMPARISON: 05/25/2023 TECHNIQUE: Multidetector volumetric images were obtained from the superior aspect of the liver through the pubic symphysis following administration 85 mL of Omnipaque 350 intravenous contrast. Sagittal and coronal reformatted images were obtained on the technologist's workstation. Oral contrast: No This CT examination was performed using dose optimization techniques as appropriate, variously including the following: *Automated exposure control *Adjustment of mA and/or kV according to patient size (this includes techniques or standardized protocols for targeted exams where dose is matched to indication/reason for exam; i.e. extremities or head) *Use of iterative reconstruction technique DLP: 337 mGy-cm FINDINGS: LUNG BASES: The visualized lung bases are unremarkable. LIVER, GALLBLADDER, AND BILIARY TREE: The liver is decreased in attenuation. No focal hepatic lesion or biliary ductal dilatation is present. The gallbladder is unremarkable with no evidence of radiopaque gallstones, gallbladder wall thickening, or obvious pericholecystic inflammatory changes. PANCREAS: Unremarkable. SPLEEN: Unremarkable. ADRENAL GLANDS: Unremarkable. KIDNEYS AND URETERS: The kidneys are symmetric in size and enhancement. No hydronephrosis. No perinephric stranding. BLADDER: Unremarkable. GASTROINTESTINAL TRACT: Rectal wall thickening with mucosal hyperenhancement. Mild perirectal inflammatory changes. No small bowel obstruction. Copious stool retained in the colon. ABDOMINAL WALL: No significant hernia is appreciated. LYMPH NODES: Scattered perirectal lymph nodes. VASCULAR: Normal caliber abdominal aorta. PELVIC VISCERA: Unremarkable. OSSEOUS STRUCTURES: Marked degenerative disc disease at L4-L5. CT/CT abdomen pelvis w IV con IMPRESSION: Rectal wall thickening and mucosal hyperenhancement. Mild perirectal inflammatory changes. Scattered perirectal lymph nodes. This can be seen in the setting of inflammatory bowel disease. Dictated By: Genoveva Pope MD Signed By: <Electronically signed by Genoveva Pope MD in OV> 10/29/23 1535 DD/ 1514 TD/TT: Interior Design Principal: Calprotectin, Fecal Reviewed date:11/09/2023 09:33:23 AM Interpretation: Performing Lab:[address] [address] Notes/Report: Calprotectin, Fecal 659 Reference Range: <50 Normal 50-120 Borderline >120 Elevated Calprotectin in Crohn's disease and ulcerative colitis can be five to several thousand times above the reference population (50 mcg/g or less). Levels are usually 50 mcg/g or less in healthy patients and with irritable bowel syndrome. Repeat testing in 4-6 weeks is suggested for borderline values. THIS TEST WAS PERFORMED AT: [facility] [address] [place] [address] OLMAN DAMON MD,PHD,ERNIE Vitamin D 1,25 OH LC/MS/MS Reviewed date:12/25/2023 04:55:24 PM Interpretation: Performing Lab:[facility], [address] [place] [phone] Notes/Report: Vit D (1,25-Dihydroxy) Total 47 18-72 pg/mL VITAMIN D (1,25 OH) D3 47 Vitamin D (1,25 OH) D2 <8 Vitamin D3, 1,25(OH)2 indicates both endogenous production and supplementation. Vitamin D2, 1,25(OH)2 is an indicator of exogenous sources, such as diet or supplementation. Interpretation and therapy are based on measurement of Vitamin D,1,25(OH)2, Total. This test was developed and its analytical performance characteristics have been determined by [employer] [place], [place]. It has not been cleared or approved by the FDA. This assay has been validated pursuant to the CLIA regulations and is used for clinical purposes. THIS TEST WAS PERFORMED AT: [facility]/[address] [address] NEFTALY BARRIENTOS MD,PHD Complete Blood Count no Diff Reviewed date:12/24/2023 09:08:09 AM Interpretation: Performing Lab:[address] [address] Notes/Report: White Blood Count 6.5 4.8-10.8 X10*3/uL Red Blood Count 3.57 4.20-5.50 X10*6/uL Hemoglobin 11.9 12.0-16.0 g/dl Hematocrit 35.0 37.0-47.0 % Mean Corpuscular Volume 98.0 80.0-98.0 fL Mean Corpuscular Hemoglobin 33.3 27.0-33.0 pg Mean Corpuscular HGB Conc 34.0 31.0-35.0 g/dl Red Cell Distribution Width 14.4 11.0-16.0 % Platelet Count 407 160-400 X10*3/uL Mean Platelet Volume 10.3 9.4-12.3 fL NRBC Pct Auto 0.0 0.0-0.2 /100WBC NRBC Abs Auto 0.000 0.0-0.012 X10*3/uL Erythrocyte Sedimentation Ra te Reviewed date:12/24/2023 09:08:02 AM Interpretation: Performing Lab:[address] [address] Notes/Report: Erythrocyte Sedimentation Rate 21 0-20 MM/HR Patients with polycythemia and many hemoglobin abnormalities may have depressed sed rates whereas patients with anemia may have elevated sed rates. Liver Panel Reviewed date:12/24/2023 09:08:44 AM Interpretation: Performing Lab:[address] [address] Notes/Report: Bilirubin Total 0.4 0.0-1.0 mg/dL Bilirubin Direct 0.2 0.0-0.5 mg/dL Aspartate Amino Transferase 22 5-31 U/L Alanine Aminotransferase 14 0-31 U/L Total Protein 7.2 6.5-8.0 g/dL Albumin Level 4.4 3.5-5.0 g/dL Alkaline Phosphatase 62 39-117 U/L IRON PROFILE Reviewed date:12/24/2023 09:08:17 AM Interpretation: Performing Lab:[facility], [address] [place] [address] Notes/Report: Iron 80 30-160 mcg/dL Total Iron Binding Capacity 259 228-428 mcg/d L Percent Iron Saturation 31 15-50 % Unsaturated Iron Binding 179 C Reactive Protein Reviewed date:12/24/2023 09:08:38 AM Interpretation: Performing Lab:[facility], [address] [place] [address] Notes/Report: C Reactive Protein < 0.10 < or = 0.50 mg/dL Lipase Reviewed date:12/24/2023 09:08:53 AM Interpretation: Performing Lab:[facility], [address] [place] [phone] Notes/Report: Lipase 11 8-78 U/L Thiopurine Metabolites Reviewed date:12/25/2023 04:55:17 PM Interpretation: Performing Lab:[facility], [address] [place] [address] Notes/Report: 6-TGN 416 235-400 Result Units: pmol/8x10(8)RBC This test was developed and its analytical performance characteristics have been determined by [employer]. It has not been cleared or approved by the FDA. This assay has been validated pursuant to the CLIA regulations and is used for clinical purposes. 6-MMPN 555 <5700 Result Units: pmol/8x10(8)RBC These results are useful in assessing a patient's metabolism of azathioprine (AZA) or 6-mercaptopurine (6-MP). A 6-thioguanine (6-TG) level greater than 235 pmol/8x10(8) RBC has been associated with remission and very high levels have been associated with leucopenia. 6-methylmercaptopurine (6-MMP) levels greater than 5700 pmol/8x10(8) RBC may be associated with hepatoxicity. This test was developed and its analytical performance characteristics have been determined by [employer]. It has not been cleared or approved by the FDA. This assay has been validated pursuant to the CLIA regulations and is used for clinical purposes. THIS TEST WAS PERFORMED AT: [facility] [facility] [address] [place] [address] JOSE FIELD MD Ur Preg Test Reviewed date:01/07/2024 11:21:03 AM Interpretation: Performing Lab:[facility], [address] [place] [address] Notes/Report: Urine NEGATIVE NEGATIVE This test was developed to detect early . False negative results may occur after the 5th - 7th week of when using this test method. If clinically indicated, consider a serum hCG. Glucose, Whole Blood Reviewed date:01/07/2024 11:20:56 AM Interpretation: Performing Lab:[facility], [address] [place] [phone] Notes/Report: Glucose, Whole Blood 96 60-115 mg/dL METER # : [id number] Pathology Reviewed date:01/14/2024 08:48:26 AM Interpretation: Performing Lab:[facility], [address] [place] [address] Notes/Report: Complete Blood Count no Diff Reviewed date:04/14/2024 11:12:43 AM Interpretation: Performing Lab:[facility], [address] [place] [address] Notes/Report: White Blood Count 5.7 4.8-10.8 X10*3/uL Red Blood Count 3.51 4.20-5.50 X10*6/uL Hemoglobin 12.1 12.0-16.0 g/dl Hematocrit 35.1 37.0-47.0 % Mean Corpuscular Volume 100.0 80.0-98.0 fL Mean Corpuscular Hemoglobin 34.5 27.0-33.0 pg Mean Corpuscular HGB Conc 34.5 31.0-35.0 g/dl Red Cell Distribution Width 13.1 11.0-16.0 % Platelet Count 334 160-400 X10*3/uL Mean Platelet Volume 10.7 9.4-12.3 fL NRBC Pct Auto 0.0 0.0-0.2 /100WBC NRBC Abs Auto 0.000 0.0-0.012 X10*3/uL Erythrocyte Sedimentation Ra te Reviewed date:04/14/2024 11:13:05 AM Interpretation: Performing Lab:[address] [address] Notes/Report: Erythrocyte Sedimentation Rate 18 0-20 MM/HR Patients with polycythemia and many hemoglobin abnormalities may have depressed sed rates whereas patients with anemia may have elevated sed rates. Liver Panel Reviewed date:04/14/2024 11:12:24 AM Interpretation: Performing Lab:[facility], [address] [place] [address] Notes/Report: Bilirubin Total 0.5 0.0-1.0 mg/dL Bilirubin Direct 0.2 0.0-0.5 mg/dL Aspartate Amino Transferase 27 5-31 U/L Alanine Aminotransferase 19 0-31 U/L Total Protein 7.7 6.5-8.0 g/dL Albumin Level 4.3 3.5-5.0 g/dL Alkaline Phosphatase 87 39-117 U/L C Reactive Protein Reviewed date:04/14/2024 11:12:56 AM Interpretation: Performing Lab:[facility], [address] [place] [address] Notes/Report: C Reactive Protein < 0.10 < or = 0.50 mg/dL Lipase Reviewed date:04/14/2024 11:12:50 AM Interpretation: Performing Lab:[address] [address] Notes/Report: Lipase 20 8-78 U/L [facility] Reviewed date:04/22/2024 04:06:35 PM Interpretation: Performing Lab:[address] [address] Notes/Report: [facility] Crohn's SEE NOTE SE E SCANNED RESULTS IN EMR REASON FOR REFERRAL No Information MEDICATIONS Medication SIG (Take, Route, Frequency, Duration) Notes Start Date End Date Status Loratadine 10 MG 1 tablet Orally Once a day for 30 day(s) Active Stelara 90 MG/ML INJECT THE CONTENTS OF 1 SYRINGE UNDER THE SKIN EVERY 8 WEEKS (STARTING 8 WEEKS AFTER INTRAVENOUS INFUSION) Active Pantoprazole Sodium 40 MG TAKE 1 TABLET BY MOUTH TWICE DAILY for 30 days Active Ferrous Sulfate 325 (65 Fe) MG 1 tablet Orally Once a day Active Hyoscyamine Sulfate ER 0.375 MG TAKE 1 TABLET BY MOUTH 2X DAILY for 30 days Active Imuran 50 3 tabs a day Orally daily Active LORazepam 0.5 MG 1 tablet at bedtime as needed Orally Once a day 11/06/2023 Active Atorvastatin Calcium 40 MG 1 tablet Orally Once a day Active Linzess 290 MCG TAKE 1 CAPSULE BY [facility] EVERY DAY Orally for 90 days Active Vitamin C 500 MG 1 tablet Orally Once a day Active Stelara 130 MG/26ML 390 mg Intravenous once 2023 Active PARoxetine HCl Activ e HumaLOG 100 UNIT/ML as directed Subcutan eous once a day Active Anusol-HC 25 MG 1 suppository Rectal Twice a day for 30 days 11/02/2019 Not-Taki ng Stelara 90 MG/ML as directed Subcutan eous every 4 weeks for 30 days 12/21/2023 Active Excedrin Migraine Ac tive Famotidine 40 MG 1 tablet at bedtime Orally Once a day for 30 day(s) 05/02/2024 Active MiraLax (colon prep) 17 GM/SCOOP mixed with Gatorade or Crystal Light Orally begin at 5:00 p.m. the day before the procedure for 1 day 12/21/2023 Active Gabapentin 300 MG Orally Ac tive Toujeo SoloStar 300 UNIT/ML 14units Subcutaneous daily Active Vitamin D 1000 UNIT 1 tablet Orally Once a day Active Multivitamin Active IMMUNIZATIONS Vaccine Route Administration Date Status Comme nts Influenza Unknown 08/04/2018 Administered Influenza Unknown 08/19/2018 Administered Influenza Unknown 08/01/2020 Administered Influenza Unknown 11/02/2019 Refused Influenza Unknown 11/04/2023 Refused SOCIAL HISTORY Sex Assigned At : Social History Observation Description Sex Assigned At Unknown PROBLEMS Problem Type ICD Code Onset Dates Problem Status W/U Status Risk SNOMED Code Notes Problem Hoyos's esophagus without dysplasia (K22.70) Active confirmed 012722686 Problem Crohn's disease of small intestine with abscess (K50.014) Active confirmed Abscess of intestine co-occurrent and due to Crohn's disease of small intestine (disorder) (51088677988 91875) Problem Crohn's disease of large intestine without complications (K50.10) Active confirmed 3727943 Problem Crohn's disease of large intestine with rectal bleeding (K50.111) Active confirmed 5623639 Problem Gastroesophageal reflux disease without esophagitis (K21.9) Active confirmed 917739120 Problem Irritable bowel syndrome with constipation (K58.1) Active confirmed 434797108 Problem Chronic idiopathic constipation (K59.04) Active confirmed 67979751 Problem Drug therapy (Z79.899) Active confirmed 641871254 Problem Irritable bowel syndrome with constipation and diarrhea (K58.2) Active confirmed 20639127 Problem Crohn''s disease without complication, unspecified gastrointestinal tract location (K50.90) Active confirmed 71662445 VITAL SIGNS Temperature 97.7 degrees Fahrenheit 05/02/2024 Blood pressure diastolic 00 mm Hg 05/02/2024 Height 62 in 05/02/2024 Blood pressure systolic 000 mm Hg 05/02/2024 Weight 134 lb 4 oz lbs 05/02/2024 BMI 24.55 kg/m2 05/02/2024 Encounters Encounter Location Date Provider Diagnosis [facility] Outpatient [address] [place] [id number] 01/06/2024 Satinder Correa Jr Crohn's disease of small intestine with abscess K50.014 [facility] [address] [place] [phone] 11/04/2023 Satinder Correa Jr Crohn's disease of large intestine with rectal bleeding K50.111 [facility] [address] [place] [phone] 05/02/2024 Satinder Correa Jr Crohn's disease of large intestine with rectal bleeding K50.111 ; Gastroesophageal reflux disease without esophagitis K21.9 and Hoyos's esophagus without dysplasia K22.70 [facility] [address] [place] [phone] 12/21/2023 Satinder Correa Jr Crohn's disease of large intestine without complications K50.10 and Gastroesophageal reflux disease, unspecified whether esophagitis present K21.9 [facility] [address] [place] [phone] 10/12/2023 Satinder Correa Jr [facility] [address] [place] [phone] 10/12/2023 Satinder Correa Jr [facility] [address] [place] [address] 10/12/2023 Satinder Correa Jr [facility] [address] [place] [id number] 10/16/2023 Satinder Correa Jr [facility] [address] [place] [address] 10/23/2023 Satinder Correa Jr [facility] [address] [place] [address] 10/28/2023 Satinder Correa Jr Crohn's disease of large intestine with rectal bleeding K50.111 [facility] [address] [place] [address] 10/28/2023 Satinder Correa Jr [facility] [address] [place] [address] 10/29/2023 Satinder Correa Jr [facility] [address] [place] [address] 10/30/2023 Satinder Correa Jr [facility] [address] [place] [address] 11/06/2023 Satinder Correa Jr [facility] [address] [place] [address] 11/10/2023 Satinder Correa Jr [facility] [address] [place] 11/11/2023 Satinder Correa Jr Crohn's disease of large intestine with rectal bleeding K50.111 [facility] [address] [place] [address] 11/17/2023 Satinder Correa Jr [facility] [address] [place] 11/19/2023 Satinder Correa Jr [facility] [address] [place] [address] 12/08/2023 Satinder Correa Jr [facility] [address] [place] [address] 12/08/2023 Satinder Correa Jr [facility] [address] [place] [address] 12/16/2023 Satinder Correa Jr [facility] [address] [place] [address] 12/21/2023 Satinder Correa Jr [facility] [address] [place] [address] 12/21/2023 Satinder Correa Jr [facility] [address] [place] [address] 12/25/2023 Satinder Correa Jr [facility] [address] [place] [address] 12/28/2023 Satinder Correa Jr [facility] [address] [place] [address] 01/05/2024 Satinder Correa Jr [facility] [address] [place] [address] 01/08/2024 Satinder Correa Jr [facility] [address] [place] [address] 01/11/2024 Satinder Correa Jr [facility] [address] [place] [address] 01/14/2024 Satinder Correa Jr [facility] [address] [place] [address] 01/14/2024 Satinder Correa Jr [facility] [address] [place] [address] 01/18/2024 Satinder Correa Jr [facility] [address] [place] [address] 04/04/2024 Satinder Correa Jr Crohn's disease of large intestine with rectal bleeding K50.111 [facility] [address] [place] [address] 04/22/2024 Satinder Correa Jr [facility] [address] [place] [address] 08/03/2024 Satinder Correa Jr [facility] [address] [place] [address] 08/23/2024 Satinder Correa Jr [facility] [address] [address] [place] [address] 08/26/2024 Satinder Correa Jr Crohn's disease of large intestine with rectal bleeding K50.111 and Chronic idiopathic constipation K59.04 ASSESSMENTS Encounter Date Diagnosis Assessment Notes Treatment Notes Treatment Clinical Notes 01/06/2024 Crohn's disease of small intestine with abscess (ICD-10 - K50.014) 11/04/2023 Crohn's disease of large intestine with rectal bleeding (ICD-10 - K50.111) Crohn disease material was printed 05/02/2024 Crohn's disease of large intestine with rectal bleeding (ICD-10 - K50.111) Labs to be done in 05/02/2024 Gastroesophageal ref lux disease without esophagitis (ICD-10 - K21.9) 12/21/2023 Crohn's disease of large intestine without complications (ICD-10 - K50.10) Stelara 390 mg iv infusion x 1 dose, then start 90 mg injections every 4 weeks.,Crohn disease material was printed 12/21/2023 Gastroesophageal ref lux disease, unspecified whether esophagitis present (ICD-10 - K21.9) 10/28/2023 Crohn's disease of large intestine with rectal bleeding (ICD-10 - K50.111) 11/11/2023 Crohn's disease of large intestine with rectal bleeding (ICD-10 - K50.111) 04/04/2024 Crohn's disease of large intestine with rectal bleeding (ICD-10 - K50.111) 08/26/2024 Crohn's disease of large intestine with rectal bleeding (ICD-10 - K50.111) 05/02/2024 Hoyos's esophagus without dysplasia (ICD-10 - K22.70) 08/26/2024 Chronic idiopathic constipation (ICD-10 - K59.04) Physican order: Pelvic floor physical therapy. Evaluate and treat. Diagnosis: Crohn's disease of large intestine with rectal bleeding, K50.111 Chronic idiopathic constipation, K59.04 PLAN OF TREATMENT Pending Test Test Name Order Date CHEM 7 PROFILE 03/19/2018 CHEM 7 PROFILE 03/30/2020 CHEM 7 PROFILE 03/19/2018 BUN 10/28/2023 CREATININE 10/28/2023 LIVER PROFILE 03/19/2018 LIVER PROFILE 03/19/2018 LIVER PROFILE 02/28/2019 LIVER PROFILE 04/04/2024 LIVER PROFILE 04/10/2022 LIVER PROFILE 01/08/2023 LIVER PROFILE 10/05/2019 LIVER PROFILE 10/28/2023 LIVER PROFILE 05/02/2024 LIVER PROFILE 11/11/2023 LIVER PROFILE 01/27/2019 LIVER PROFILE 12/08/2018 LIVER PROFILE 03/31/2019 LIVER PROFILE 05/18/2023 LIPASE 11/11/2023 LIPASE 01/27/2019 LIPASE 12/08/2018 LIPASE 03/31/2019 LIPASE 03/19/2018 LIPASE 03/19/2018 LIPASE 02/28/2019 LIPASE 04/04/2024 LIPASE 04/10/2022 LIPASE 01/08/2023 LIPASE 10/05/2019 IRON + IBC (FE) 12/21/2023 CRP 11/11/2023 CRP 11/02/2019 CRP 08/29/2020 CRP 04/04/2024 CRP 04/10/2022 CRP 05/02/2024 CBC w DIFF 04/10/2022 CBC w DIFF 01/27/2019 CBC w DIFF 03/31/2019 CBC w DIFF 03/19/2018 CBC w DIFF 03/19/2018 CBC w DIFF 11/02/2019 CBC w DIFF 10/28/2023 CBC w/o DIFF 01/08/2023 CBC w/o DIFF 10/05/2019 CBC w/o DIFF 05/02/2024 CBC w/o DIFF 05/18/2023 CBC w/o DIFF 04/04/2024 CBC w/o DIFF 12/08/2018 CBC w/o DIFF 11/11/2023 CBC w/o DIFF 08/29/2020 SED RATE (ESR) 10/28/2023 SED RATE (ESR) 01/08/2023 SED RATE (ESR) 04/10/2022 SED RATE (ESR) 05/02/2024 SED RATE (ESR) 04/04/2024 SED RATE (ESR) 11/11/2023 SED RATE (ESR) 11/02/2019 SED RATE (ESR) 08/29/2020 CT ABD & PELVIS WITH CONTRAST 10/28/2023 CT ABD & PELVIS WITH PO CONT ONLY 2012 CT ABD & PELVIS WITH PO CONT ONLY 2017 PROMETHEUS CROHN'S PROGNOSTIC 11/02/2019 PROMETHEUS THIOPURINE METABOLITES (TPMT) 11/02/2019 PROMETHEUS THIOPURINE METABOLITES (TPMT) 10/05/2019 PROMETHEUS THIOPURINE METABOLITES (TPMT) 04/22/2021 PROMETHEUS THIOPURINE METABOLITES (TPMT) 03/31/2019 PROMETHEUS THIOPURINE METABOLITES (TPMT) 02/28/2019 PROMETHEUS TPMT ENZYME 12/08/2018 PROMETHEUS TPMT GENETICS 12/08/2018 PROMETHEUS MONITR CROHN'S 08/29/2020 PROMETHEUS MONITR CROHN'S 10/28/2023 PROMETHEUS MONITR CROHN'S 01/08/2023 PROMETHEUS MONITR CROHN'S 04/10/2022 PROMETHEUS MONITR CROHN'S 05/02/2024 PROMETHEUS MONITR CROHN'S 04/04/2024 CALPROTECTIN, STOOL 10/28/2023 Thiopurine Metabolites 01/08/2023 Thiopurine Metabolites 11/11/2023 Future Test Test Name Order Date COLONOSCOPY 02/21/2015 UPPER GI ENDOSCOPY 11/12/2016 COLONOSCOPY CONTROL OF BLEEDING ANY METH OD 11/12/2016 COLONOSCOPY 10/01/2018 COLONOSCOPY 01/08/2023 UPPER GI ENDOSCOPY 12/21/2023 COLONOSCOPY 12/21/2023 Next Appt Details Provider Name:Satinder norman , 11/03/2024 03:55:00 PM, [address] [place] [address], [address], [place], [address], Insurance Providers Payer Name Payer Address Payer Phone Subscriber Number Group Number Insured Name Patient Relationship to Insured Coverage Start Date Coverage End Date [employer] [address] [address] [place] [address] [id number] JUDY MULLIGAN Self - patient is the insured MEDICATIONS ADMINISTERED Medication Instructions Date of Administration Dosage Notes [place] 08/17/2015 MEDICAL (GENERAL) HISTORY Medical History History ICD Code colonoscopy 11/18/19 rectosigmoid disease consistent with previous exams Crohn's colitis, rectosigmoi d involvement, diagnosed in 2000 (? Ulcerative colitis) initially treated with 5-ASA agents and suppositories, Humira started 2014, increased to weekly 2017 with addition of Imuran, Humira discontinued due to persistent active disease on endoscopy and symptoms with adequate drug levels, Stelara started January 2024, Imuran continued. Has had multiple prednisone tapers. Diverticulitis Situational anxiety irritable bowel syndrome wit h both diarrhea and constipation, complicating Crohn's disease Seasonal allergic rhinitis diabetes I cateracts GERD, long-term pantoprazole, EGD 7 H. pylori negative, no Hoyos's Surgical History Surgery Date(Month/Year) Disc surgery Hospitalization History Reason Date(Month/Year) 2015, 2019, secondary to Crohn's disease exacerbations
== END 2024-10-03 09:35 | disposition home or self-care (01) ==
PROVIDERS: PCP Nurse Practitioner Family; Visit Provider Nurse Practitioner Family
DX: Z23 Encounter for immunization (principal)

== ENCOUNTER → 2024-10-03 09:03 | Outpatient (BNVA) | payer OTHER, SELFPAY | PROVIDERS: PCP Nurse Practitioner Family; Visit Provider Nurse Practitioner Family | DX: Z23 Encounter for immunization (principal) | CPT/HCPCS: 90471; 90746 ==

== ENCOUNTER 2024-11-03 09:03 | Outpatient (AMB) | payer OTHER, SELFPAY ==
--- NOTE | 2024-11-03 09:16 | AM.OFFVISNUR ---
Intake Visit Reasons: Hep B Intake Note: Pt arrived for #2 Hep B vaccine Allergies cephalexin Allergy (Unknown, Verified 08/04/24 14:17) RASH Penicillins Allergy (Unknown, Verified 08/04/24 14:17) RASH Sulfa (Sulfonamide Antibiotics) Allergy (Unknown, Verified 08/04/24 14:17) RASH azithromycin [From Zithromax Z-Zackary] Allergy (Verified 08/04/24 14:17) Unknown sulfamethoxazole [From Bactrim] Allergy (Verified 08/04/24 14:17) Unknown trimethoprim [From Bactrim] Allergy (Verified 08/04/24 14:17) Unknown clindamycin Adverse Reaction (Mild, Verified 08/04/24 14:17) Itching Immunizations Engerix-B (PF) 20 mcg/mL intramuscular suspension [facility] Location: [facility] Administered by: Yissel Jiménez RN on 11/03/24 09:17 Dose Route Admin Location Dispensed Lot Number Expiration Date FORMERLY NAMED [facility] Paper Pattern Inspector 1 mL IM Right Deltoid 1.0 mL [id number] 06/15/26 25083-268-72 [employer] VIS Given Date VIS Provided VIS Publication Date 11/03/24 Single Vaccine 23 Eligibility Eligibility Date Funding Source Not [facility] Eligible 11/03/24 Private Assessment & Plan Assessment & Plan Orders: Orders Hepatitis B Adult Immunization Today Z23 - Encounter for immunization Medications: New Engerix-B (PF) (hepatitis B virus vacc.rec(PF)) 1 mL IM ONCE 1 mL 0RF NS Z23 - Encounter for immunization
--- OUTSIDE RECORDS SUMMARY | 2024-11-03 09:18 | XMS_ITS ---
Author Organization [facility] Address [address] [place] [address] Care Team Providers Care Ager Operator Name Role Phone DAWNAMC WORKMAN Primary Care Provider UnavailSatinder Romero Jr REASON FOR VISIT Patient presents today for crohn's Encounters Encounter Location Date Provider Diagnosis [facility] [address] [place] [address] 11/03/2024 Satinder Correa Jr PLAN OF TREATMENT Next Appt Details Provider Name:Satinder norman Jr, 11/03/2024 03:55:00 PM, [address] [facility], [address], [place], [address],
--- OUTSIDE RECORDS SUMMARY | 2024-11-03 09:19 | XMS_ITS ---
Author Organization [facility] Address [address] [place] [address] Care Team Providers Care Analysis Engineer Name Role Phone PRASANNAMC RANDOLPH Primary Care Provider Unavailrashida e Satinder Correa Jr REASON FOR VISIT wants call back Encounters Encounter Location Date Provider Diagnosis [facility] [address] [place] [address] 08/23/2024 Satinder Correa Jr PLAN OF TREATMENT Next Appt Details Provider Name:Satinder norman Jr, 11/03/2024 03:55:00 PM, [address], [address], [place], [address],
--- OUTSIDE RECORDS SUMMARY | 2024-11-03 09:19 | XMS_ITS ---
Author Organization [facility] Address [address] [place] [phone] Care Team Providers Care Ortho Assistant Name Role Phone PRASANNAMC RANDOLPH Primary Care Provider Satinder Pisano Jr REASON FOR VISIT referral to pelvic floor PROBLEMS Problem Type ICD Code Onset Dates Problem Status W/U Status Risk SNOMED Code Notes Problem Crohn's disease of large intestine with rectal bleeding (K50.111) Active confirmed [id number] Encounters Encounter Location Date Provider Diagnosis [facility] [address] [place] [phone] 08/26/2024 Satinder Correa Jr Crohn's disease of [...] 03:55:00 PM, [address], [address], [place], [address],
--- OUTSIDE RECORDS SUMMARY | 2024-11-03 09:19 | XMS_ITS | Patient Health Record ---
Author Organization [facility] Address [address] [place] [address] Care Team Providers Care Land Leasing Information Clerk Name Role Phone MC PEDRO Primary Care Provider Satinder Pisano Jr Unavailable [phone] ALLERGIES Allergen (clinical drug ingredient) Drug/Non Drug Allergy documented on EMR Reaction Allergy Type Onset Date Status Sulfa Unknown Drug Allergy Active Penicillin Unknown Drug Allergy Active azithromycin Zithromax Z-Zackary Unknown Drug Allergy Active Keflex Unknown Drug Allergy Active sulfamethoxazole / trimethoprim Bactrim Unknown Drug Allergy Active RESULTS Component Value Reference Range Notes Vitamin D 1,25 OH LC/MS/MS Reviewed date:12/25/2023 04:55:24 PM Interpretation: Performing Lab:[facility], [address] [place] [phone] Notes/Report: Vit D (1,25-Dihydroxy) Total 47 18-72 [...] analytical performance characteristics have been determined by [facility], [place], [place]. It has not been cleared or approved by the FDA. This assay has been validated pursuant to the CLIA regulations and is used for clinical purposes. THIS TEST WAS PERFORMED AT: [facility] [id number] [place] [phone] NEFTALY BARRIENTOS MD,PHD Complete Blood Count no Diff Reviewed date:12/24/2023 09:08:09 AM Interpretation: Performing Lab:[facility], [address] [place] [phone] Notes/Report: White Blood Count 6.5 4.8-10.8 X10*3/uL [...] te Reviewed date:12/24/2023 09:08:02 AM Interpretation: Performing Lab:[facility], [address] [place] [phone] Notes/Report: Erythrocyte Sedimentation Rate 21 0-20 MM/HR Patients with polycythemia and many hemoglobin abnormalities may have depressed sed rates whereas patients with anemia may have elevated sed rates. Liver Panel Reviewed date:12/24/2023 09:08:44 AM Interpretation: Performing Lab:[facility], [address] [place] [phone] Notes/Report: Bilirubin Total 0.4 0.0-1.0 mg/dL Bilirubin Direct 0.2 0.0-0.5 mg/dL Aspartate Amino Transferase 22 5-31 U/L Alanine Aminotransferase 14 0-31 U/L Total Protein 7.2 6.5-8.0 g/dL Albumin Level 4.4 3.5-5.0 g/dL Alkaline Phosphatase 62 39-117 U/L IRON PROFILE Reviewed date:12/24/2023 09:08:17 AM Interpretation: Performing Lab:[facility], [address] [place] [phone] Notes/Report: Iron 80 30-160 mcg/dL Total Iron Binding Capacity 259 228-428 mcg/d L Percent Iron Saturation 31 15-50 % Unsaturated Iron Binding 179 C Reactive Protein Reviewed date:12/24/2023 09:08:38 AM Interpretation: Performing Lab:[facility], [address] [place] [phone] Notes/Report: C Reactive Protein < 0.10 < or = 0.50 mg/dL Lipase Reviewed date:12/24/2023 09:08:53 AM Interpretation: Performing Lab:[facility], [address] [place] [phone] Notes/Report: Lipase 11 8-78 U/L Thiopurine Metabolites Reviewed date:12/25/2023 04:55:17 PM Interpretation: Performing Lab:[facility], [address] [place] [phone] Notes/Report: 6-TGN 416 235-400 Result Units: pmol/8x10(8)RBC This test was developed and its analytical performance characteristics have been determined by [employer]. It has not been cleared or approved [...] analytical performance characteristics have been determined by [employer]. It has not been cleared or approved by the FDA. This assay has been validated pursuant to the CLIA regulations and is used for clinical purposes. THIS TEST WAS PERFORMED AT: [employer] [place] [address] [place] [address] JOSE FIELD MD Ur Preg Test Reviewed date:01/07/2024 11:21:03 AM Interpretation: Performing Lab:[facility], [address] [place] [phone] Notes/Report: Urine NEGATIVE NEGATIVE This test was developed to detect early . False negative results may occur after the 5th - 7th week of when using this test method. If clinically indicated, consider a serum hCG. Glucose, Whole Blood Reviewed date:01/07/2024 11:20:56 AM Interpretation: Performing Lab:[facility], [address] [place] [phone] Notes/Report: Glucose, Whole Blood 96 60-115 mg/dL METER # : [id number] Pathology Reviewed date:01/14/2024 08:48:26 AM Interpretation: Performing Lab:[facility], [address] [place] [phone] Notes/Report: Complete Blood Count no Diff Reviewed date:04/14/2024 11:12:43 AM Interpretation: Performing Lab:[facility], [address] [place] [phone] Notes/Report: White Blood Count 5.7 4.8-10.8 X10*3/uL [...] te Reviewed date:04/14/2024 11:13:05 AM Interpretation: Performing Lab:[address] [phone] Notes/Report: Erythrocyte Sedimentation Rate 18 0-20 MM/HR Patients with polycythemia and many hemoglobin abnormalities may have depressed sed rates whereas patients with anemia may have elevated sed rates. Liver Panel Reviewed date:04/14/2024 11:12:24 AM Interpretation: Performing Lab:[address] [phone] Notes/Report: Bilirubin Total 0.5 0.0-1.0 mg/dL Bilirubin Direct 0.2 0.0-0.5 mg/dL Aspartate Amino Transferase 27 5-31 U/L Alanine Aminotransferase 19 0-31 U/L Total Protein 7.7 6.5-8.0 g/dL Albumin Level 4.3 3.5-5.0 g/dL Alkaline Phosphatase 87 39-117 U/L C Reactive Protein Reviewed date:04/14/2024 11:12:56 AM Interpretation: Performing Lab:[address] [phone] Notes/Report: C Reactive Protein < 0.10 < or = 0.50 mg/dL Lipase Reviewed date:04/14/2024 11:12:50 AM Interpretation: Performing Lab:[address] [phone] Notes/Report: Lipase 20 8-78 U/L [facility] Crohn[facility] Reviewed date:04/22/2024 04:06:35 PM Interpretation: Performing Lab:[address] [phone] Notes/Report: [facility] SEE NOTE SE E SCANNED RESULTS IN EMR REASON FOR REFERRAL No Information MEDICATIONS Medication SIG (Take, Route, Frequency, Duration) Notes Start Date End Date Status Linzess 290 MCG TAKE 1 CAPSULE BY MO UTH EVERY DAY ORALLY 90 DAYS for 90 Active Famotidine 40 MG TAKE 1 TABLET BY OLGA TH AT BEDTIME ONCE A DAY for 30 Active Stelara 90 MG/ML INJECT 1ML (90MG) UN CHE THE SKIN DIRECTED EVERY 4 WEEKS for 84 Active Loratadine 10 MG 1 tablet Orally Once a day for 30 day(s) Active Pantoprazole Sodium 40 MG TAKE 1 [...] 1 tablet Orally Once a day Active Vitamin C 500 MG 1 tablet Orally Once a day Active Stelara 130 MG/26ML 390 mg Intravenous once 2023 Active PARoxetine HCl Activ e HumaLOG 100 UNIT/ML as directed Subcutan eous once a day Active Anusol-HC 25 MG 1 suppository Rectal Twice a day for 30 days 11/02/2019 Not-Ranjeet ng Excedrin Migraine Ac tive MiraLax (colon prep) 17 GM/SCOOP mixed with [...] Hoyos's esophagus without dysplasia (K22.70) Active confirmed 698581540 Problem Crohn's disease of small intestine with abscess (K50.014) Active confirmed Abscess of intestine co-occurrent and due to Crohn's disease of small intestine (disorder) (66216600516 30718) Problem Crohn's disease of large intestine without complications (K50.10) Active confirmed 0608579 Problem Crohn's disease of large intestine with rectal bleeding (K50.111) Active confirmed 7956797 Problem Gastroesophageal reflux disease without esophagitis (K21.9) Active confirmed 565946517 Problem Irritable bowel syndrome with constipation (K58.1) Active confirmed 039904868 Problem Chronic idiopathic constipation (K59.04) Active confirmed 95994790 Problem Drug therapy (Z79.899) Active confirmed 515074593 Problem Irritable bowel syndrome with constipation and diarrhea (K58.2) Active confirmed 02835818 Problem Crohn''s disease without complication, unspecified gastrointestinal tract location (K50.90) Active confirmed 44320512 VITAL SIGNS Temperature 97.7 degrees Fahrenheit 05/02/2024 Blood pressure diastolic 00 mm Hg 05/02/2024 Height 62 in 05/02/2024 Blood pressure systolic 000 mm Hg 05/02/2024 Weight 134 lb 4 oz lbs 05/02/2024 BMI 24.55 kg/m2 05/02/2024 Encounters Encounter Location Date Provider Diagnosis [facility] [address] [place] [phone] 01/06/2024 Satinder Correa Jr Crohn's disease of small intestine with abscess K50.014 [facility] [address] [place] [address] 11/04/2023 Satinder Correa Jr Crohn's disease of large intestine with rectal bleeding K50.111 [facility] [address] [place] [address] 05/02/2024 Satinder Correa Jr Crohn's disease of large intestine with rectal bleeding K50.111 ; Gastroesophageal reflux disease without esophagitis K21.9 and Hoyos's esophagus without dysplasia K22.70 [facility] [address] [place] [address] 12/21/2023 Satinder Correa Jr Crohn's disease of large intestine without complications K50.10 and Gastroesophageal reflux disease, unspecified whether esophagitis present K21.9 [facility] [address] [place] [address] 11/03/2024 Satinder Correa Jr [facility] [address] [place] [address] 11/06/2023 Satinder Correa Jr [facility] [address] [place] [address] 11/10/2023 Satinder Correa Jr [facility] [address] [place] [address] 11/11/2023 Satinder Correa Jr Crohn's disease of large intestine with rectal bleeding K50.111 [facility] [address] [place] [address] 11/17/2023 Satinder Correa Jr [facility] [address] [place] [address] 11/19/2023 Satinder Correa Jr [facility] [address] [place] [address] 12/08/2023 Satinder Correa Jr [facility] [address] [place] [address] 12/08/2023 Satinder Correa Jr [facility] [address] [place] [address] 12/16/2023 Satinder Correa Jr [facility] [address] [place] [address] 12/21/2023 Satinder Correa Jr [facility] [address] [place] [address] 12/21/2023 Satinder Correa Jr [facility] [address] [place] [address] 12/25/2023 Satinder Correa Jr [facility] [address] [place] [address] 12/28/2023 Satinder Correa Jr [facility] [address] [place] [address] 01/05/2024 Satinder Correa Jr [facility] [address] [place] [address] 01/08/2024 Satinder Correa Jr [facility] [address] [place] [address] 01/11/2024 Satinder Corrae Jr [facility] [address] [place] [address] 01/14/2024 Satinder Correa Jr [facility] [address] [place] [address] 01/14/2024 Satinder Correa Jr [facility] [address] [place] [address] 01/18/2024 Satinder Correa Jr [facility] [address] [place] [address] 04/04/2024 Satinder Correa Jr Crohn's disease of large intestine with rectal bleeding K50.111 [facility] [address] [place] [address] 04/22/2024 Satinder Correa Jr [facility] [address] [place] [address] 08/03/2024 Satinder Correa Jr [facility] [address] [place] [address] 08/23/2024 Satinder Correa Jr [facility] [address] [place] [address] 08/26/2024 Satinder Correa Jr Crohn's disease of [...] unspecified whether esophagitis present (ICD-10 - K21.9) 11/11/2023 Crohn's disease of large intestine with [...] Test Name Order Date CHEM 7 PROFILE 03/30/2020 CHEM 7 PROFILE 03/19/2018 CHEM 7 PROFILE 03/19/2018 BUN 10/28/2023 CREATININE 10/28/2023 LIVER PROFILE 03/19/2018 LIVER PROFILE 02/28/2019 LIVER PROFILE 04/04/2024 LIVER PROFILE 04/10/2022 LIVER PROFILE 01/08/2023 LIVER PROFILE 10/28/2023 LIVER PROFILE 10/05/2019 LIVER PROFILE 11/11/2023 LIVER PROFILE 01/27/2019 LIVER PROFILE 12/08/2018 LIVER PROFILE 05/02/2024 LIVER PROFILE 03/31/2019 LIVER PROFILE 05/18/2023 LIVER PROFILE 03/19/2018 LIPASE 03/19/2018 LIPASE 03/19/2018 LIPASE 02/28/2019 LIPASE 04/04/2024 LIPASE 04/10/2022 LIPASE 01/08/2023 LIPASE 10/05/2019 LIPASE 11/11/2023 LIPASE 01/27/2019 LIPASE 12/08/2018 LIPASE 03/31/2019 IRON + IBC (FE) 12/21/2023 CRP 11/11/2023 CRP 11/02/2019 CRP 08/29/2020 CRP 04/04/2024 CRP 04/10/2022 CRP 05/02/2024 CBC w DIFF 01/27/2019 CBC w DIFF 03/31/2019 CBC w DIFF 03/19/2018 CBC w DIFF 03/19/2018 CBC w DIFF 11/02/2019 CBC w DIFF 10/28/2023 CBC w DIFF 04/10/2022 CBC w/o DIFF 12/08/2018 CBC w/o DIFF 05/02/2024 CBC w/o DIFF 04/04/2024 CBC w/o DIFF 11/11/2023 CBC w/o DIFF 08/29/2020 CBC w/o DIFF 01/08/2023 CBC w/o DIFF 10/05/2019 CBC w/o DIFF 05/18/2023 SED RATE (ESR) 01/08/2023 SED RATE (ESR) 04/10/2022 SED RATE (ESR) 05/02/2024 SED RATE (ESR) 04/04/2024 SED RATE (ESR) 11/11/2023 SED RATE (ESR) 11/02/2019 SED RATE (ESR) 08/29/2020 SED RATE (ESR) 10/28/2023 CT ABD & PELVIS WITH CONTRAST 10/28/2023 [...] PROMETHEUS TPMT GENETICS 12/08/2018 PROMETHEUS MONITR CROHN'S 10/28/2023 PROMETHEUS MONITR CROHN'S 01/08/2023 PROMETHEUS MONITR CROHN'S 04/10/2022 PROMETHEUS MONITR CROHN'S 05/02/2024 PROMETHEUS MONITR CROHN'S 04/04/2024 PROMETHEUS MONITR CROHN'S 08/29/2020 CALPROTECTIN, STOOL 10/28/2023 Thiopurine Metabolites 01/08/2023 Thiopurine Metabolites 11/11/2023 Future Test Test Name Order Date COLONOSCOPY 02/21/2015 UPPER GI ENDOSCOPY 11/12/2016 COLONOSCOPY CONTROL OF BLEEDING ANY METH OD 11/12/2016 COLONOSCOPY 10/01/2018 COLONOSCOPY 01/08/2023 UPPER GI ENDOSCOPY 12/21/2023 COLONOSCOPY 12/21/2023 Next Appt Details Provider Name:Satinder norman Jr, 11/03/2024 03:55:00 PM, [address], [address], [place], [address], Insurance Providers Payer Name Payer Address Payer Phone Subscriber Number Group Number Insured Name Patient Relationship to Insured Coverage Start Date Coverage End Date [employer] [place] [address] [address] [place] [address] [id number] JUDY GRAY Self - patient is the insured MEDICATIONS ADMINISTERED Medication Instructions Date of Administration Dosage Notes Humira 08/17/2015 MEDICAL (GENERAL) HISTORY Medical History History [...]
== END 2024-11-03 09:26 | disposition home or self-care (01) ==
PROVIDERS: PCP Nurse Practitioner Family; Visit Provider Nurse Practitioner Family
DX: Z23 Encounter for immunization (principal)

== ENCOUNTER → 2024-11-03 09:03 | Outpatient (BNVA) | payer OTHER, SELFPAY | PROVIDERS: PCP Nurse Practitioner Family; Visit Provider Nurse Practitioner Family ==

== ENCOUNTER 2024-11-03 09:17 | Outpatient (REF) | payer OTHER, SELFPAY ==
[2024-11-03 10:13] LABS: MANUAL DIFF FLAG NO
[2024-11-03 10:21] LABS: Basophils Percent Auto 0.3 % (0-2); Eosinophils Absolute Auto 0.1 X10*3/uL (0.0-0.4); Eosinophils Percent Auto 1.9 % (0-4); Hematocrit 37.9 % (37.0-47.0); Hemoglobin 12.3 g/dl (12.0-16.0); Imm Gran Abs Auto 0.01 X10*3/uL (0.00-0.03); Imm Gran Pct Auto 0.2 % (0.0-0.4); Lymphocytes Absolute Auto 1.9 X10*3/uL (1.2-4.9); Mean Corpuscular HGB Conc 32.5 g/dl (31.0-35.0); Mean Corpuscular Hemoglobin 30.4 pg (27.0-33.0); Mean Corpuscular Volume 93.6 fL (80.0-98.0); Mean Platelet Volume 11.5 fL (9.4-12.3); Monocytes Absolute Auto 0.4 X10*3/uL (0.1-1.2); Monocytes Percent Auto 6.4 % (2-11); Neutrophils Percent Auto 62.2 % (45-73); Platelet Count 328 X10*3/uL (160-400); Red Blood Count 4.05 X10*6/uL (4.20-5.50); Red Cell Distribution Width 11.7 % (11.0-16.0); White Blood Count 6.4 X10*3/uL (4.8-10.8)
[2024-11-03 11:00] LABS: Erythrocyte Sedimentation Rate 14 MM/HR (0-20)
[2024-11-03 11:30] LABS: Alanine Aminotransferase 25 U/L (0-31); Albumin Level 4.3 g/dL (3.5-5.0); Aspartate Amino Transferase 27 U/L (5-31); Bilirubin Direct 0.1 mg/dL (0.0-0.5); Bilirubin Total 0.4 mg/dL (0.0-1.0); C Reactive Protein 0.12 mg/dL (< or = 0.50); Total Protein 7.4 g/dL (6.5-8.0)
[2024-11-03 12:27] LABS: Alkaline Phosphatase 84 U/L (39-117)
== END 2024-11-03 09:18 | disposition home or self-care (01) ==
LOC: HO.HMGCLDS 09:17
PROVIDERS: PCP Nurse Practitioner Family; Visit Provider Internal Medicine Gastroenterology
DX: K50.111 Crohn's disease of large intestine with rectal bleeding (principal); Z23 Encounter for immunization
CPT/HCPCS: 36415; 80076; 82397; 83520; 85025; 85652; 86140; 86141; 90471; 90746

== ENCOUNTER 2024-11-08 16:12 | Outpatient (REF) | payer OTHER, SELFPAY ==
[2024-11-08 17:43] LABS: Thyroid Stimulating Hormone 1.23 uIU/mL (0.32-4.0)
--- OUTSIDE RECORDS SUMMARY | 2024-11-08 18:08 | XMS_ITS ---
Author Organization [facility] Address [address] [place] [address] Care Team Providers Care Chip Unloader Name Role Phone PRASANNAMC RANDOLPH Primary Care Provider Satinder Pisano Jr REASON FOR VISIT referral to pelvic floor PROBLEMS Problem Type ICD Code Onset Dates Problem Status W/U Status Risk SNOMED Code Notes Problem Crohn's disease of large intestine with rectal bleeding (K50.111) Active confirmed 0840726 Encounters Encounter Location Date Provider Diagnosis [facility] [address] [place] [address] 08/26/2024 Satinder Correa Jr Crohn's disease of [...] Next Appt Details Provider Name:Satinder norman Jr, 02/09/2025 02:15:00 PM, [address] [place] [address] Drive, [address], [place], [address],
--- OUTSIDE RECORDS SUMMARY | 2024-11-08 18:09 | XMS_ITS | Patient Health Record ---
Author Organization [facility] Address [address] [place] [address] Care Team Providers Care Web Content & Social Media Manager Name Role Phone [facility] PEDRO Primary Care Provider Satinder Pisano Jr Unavailable [phone] ALLERGIES Allergen (clinical drug ingredient) Drug/Non Drug [...] LC/MS/MS Reviewed date:12/25/2023 04:55:24 PM Interpretation: Performing Lab:[facility], [address] [place] [phone] Notes/Report: Vit D (1,25-Dihydroxy) Total 47 18-72 [...] analytical performance characteristics have been determined by [facility], [place], [place]. It has not been cleared or approved by the FDA. This assay has been validated pursuant to the CLIA regulations and is used for clinical purposes. THIS TEST WAS PERFORMED AT: [facility] [id number] [place] [phone] NEFTALY BARRIENTOS MD,PHD Complete Blood Count no Diff Reviewed date:12/24/2023 09:08:09 AM Interpretation: Performing Lab:[facility], [address] [place] [phone] Notes/Report: White Blood Count 6.5 4.8-10.8 X10*3/uL [...] te Reviewed date:12/24/2023 09:08:02 AM Interpretation: Performing Lab:[facility], [address] [place] [phone] Notes/Report: Erythrocyte Sedimentation Rate 21 0-20 MM/HR Patients with polycythemia and many hemoglobin abnormalities may have depressed sed rates whereas patients with anemia may have elevated sed rates. Liver Panel Reviewed date:12/24/2023 09:08:44 AM Interpretation: Performing Lab:[facility], [address] [place] [phone] Notes/Report: Bilirubin Total 0.4 0.0-1.0 mg/dL Bilirubin Direct 0.2 0.0-0.5 mg/dL Aspartate Amino Transferase 22 5-31 U/L Alanine Aminotransferase 14 0-31 U/L Total Protein 7.2 6.5-8.0 g/dL Albumin Level 4.4 3.5-5.0 g/dL Alkaline Phosphatase 62 39-117 U/L IRON PROFILE Reviewed date:12/24/2023 09:08:17 AM Interpretation: Performing Lab:[facility], [address] [place] [phone] Notes/Report: Iron 80 30-160 mcg/dL Total Iron Binding Capacity 259 228-428 mcg/d L Percent Iron Saturation 31 15-50 % Unsaturated Iron Binding 179 C Reactive Protein Reviewed date:12/24/2023 09:08:38 AM Interpretation: Performing Lab:[facility], [address] [place] [phone] Notes/Report: C Reactive Protein < 0.10 < or = 0.50 mg/dL Lipase Reviewed date:12/24/2023 09:08:53 AM Interpretation: Performing Lab:[facility], [address] [place] [phone] Notes/Report: Lipase 11 8-78 U/L Thiopurine Metabolites Reviewed date:12/25/2023 04:55:17 PM Interpretation: Performing Lab:[facility], [address] [place] [phone] Notes/Report: 6-TGN 416 235-400 Result Units: pmol/8x10(8)RBC This test was developed and its analytical performance characteristics have been determined by [facility]. It has not been cleared or approved [...] analytical performance characteristics have been determined by [facility]. It has not been cleared or approved by the FDA. This assay has been validated pursuant to the CLIA regulations and is used for clinical purposes. THIS TEST WAS PERFORMED AT: [facility] [address] [address] [place] [address] JOSE FIELD MD Ur Preg Test Reviewed date:01/07/2024 11:21:03 AM Interpretation: Performing Lab:[facility], [address] [place] [phone] Notes/Report: Urine NEGATIVE NEGATIVE This test was developed to detect early . False negative results may occur after the 5th - 7th week of when using this test method. If clinically indicated, consider a serum hCG. Glucose, Whole Blood Reviewed date:01/07/2024 11:20:56 AM Interpretation: Performing Lab:[facility], [address] [place] [phone] Notes/Report: Glucose, Whole Blood 96 60-115 mg/dL METER # : [id number] Pathology Reviewed date:01/14/2024 08:48:26 AM Interpretation: Performing Lab:[facility], [address] [place] [phone] Notes/Report: Complete Blood Count no Diff Reviewed date:04/14/2024 11:12:43 AM Interpretation: Performing Lab:[facility], [address] [place] [phone] Notes/Report: White Blood Count 5.7 4.8-10.8 X10*3/uL [...] te Reviewed date:04/14/2024 11:13:05 AM Interpretation: Performing Lab:[facility], [address] [place] [phone] Notes/Report: Erythrocyte Sedimentation Rate 18 0-20 MM/HR Patients with polycythemia and many hemoglobin abnormalities may have depressed sed rates whereas patients with anemia may have elevated sed rates. Liver Panel Reviewed date:04/14/2024 11:12:24 AM Interpretation: Performing Lab:[address] [phone] Notes/Report: Bilirubin Total 0.5 0.0-1.0 mg/dL Bilirubin Direct 0.2 0.0-0.5 mg/dL Aspartate Amino Transferase 27 5-31 U/L Alanine Aminotransferase 19 0-31 U/L Total Protein 7.7 6.5-8.0 g/dL Albumin Level 4.3 3.5-5.0 g/dL Alkaline Phosphatase 87 39-117 U/L C Reactive Protein Reviewed date:04/14/2024 11:12:56 AM Interpretation: Performing Lab:[address] [phone] Notes/Report: C Reactive Protein < 0.10 < or = 0.50 mg/dL Lipase Reviewed date:04/14/2024 11:12:50 AM Interpretation: Performing Lab:[address] [phone] Notes/Report: Lipase 20 8-78 U/L [facility] Cro[facility] Reviewed date:04/22/2024 04:06:35 PM Interpretation: Performing Lab:[address] [phone] Notes/Report: [facility] SEE NOTE SE E SCANNED RESULTS IN EMR Complete Blood Count Auto Di ff Reviewed date:11/04/2024 02:22:32 PM Interpretation: Performing Lab:[address] [phone] Notes/Report: White Blood Count 6.4 4.8-10.8 X10*3/uL Red Blood Count 4.05 4.20-5.50 X10*6/uL Hemoglobin 12.3 12.0-16.0 g/dl Hematocrit 37.9 37.0-47.0 % Mean Corpuscular Volume 93.6 80.0-98.0 fL Mean Corpuscular Hemoglobin 30.4 27.0-33.0 pg Mean Corpuscular HGB Conc 32.5 31.0-35.0 g/dl Red Cell Distribution Width 11.7 11.0-16.0 % Platelet Count 328 160-400 X10*3/uL Mean Platelet Volume 11.5 9.4-12.3 fL Neutrophils Percent Auto 62.2 45-73 % Imm Gran Pct Auto 0.2 0.0-0.4 % Lymphocytes Percent Auto 29.0 20-40 % Monocytes Percent Auto 6.4 2-11 % Eosinophils Percent Auto 1.9 0-4 % Basophils Percent Auto 0.3 0-2 % NRBC Pct Auto 0.0 0.0-0.2 /100WBC Neutrophils Absolute Auto 4.0 2.0-8.3 x10*3/u L Imm Gran Abs Auto 0.01 0.00-0.03 X10*3/uL Lymphocytes Absolute Auto 1.9 1.2-4.9 X10*3/u L Monocytes Absolute Auto 0.4 0.1-1.2 X10*3/uL Eosinophils Absolute Auto 0.1 0.0-0.4 X10*3/u L Basophils Absolute Auto 0.0 0.0-0.2 X10*3/uL NRBC Abs Auto 0.000 0.0-0.012 X10*3/uL Erythrocyte Sedimentation Ra te Reviewed date:11/04/2024 02:22:27 PM Interpretation: Performing Lab:[address] [phone] Notes/Report: Erythrocyte Sedimentation Rate 14 0-20 MM/HR Patients with polycythemia and many hemoglobin abnormalities may have depressed sed rates whereas patients with anemia may have elevated sed rates. Liver Panel Reviewed date:11/04/2024 02:22:19 PM Interpretation: Performing Lab:[address] [phone] Notes/Report: Bilirubin Total 0.4 0.0-1.0 mg/dL Bilirubin Direct 0.1 0.0-0.5 mg/dL Aspartate Amino Transferase 27 5-31 U/L Alanine Aminotransferase 25 0-31 U/L Total Protein 7.4 6.5-8.0 g/dL Albumin Level 4.3 3.5-5.0 g/dL Alkaline Phosphatase 84 39-117 U/L C Reactive Protein Reviewed date:11/04/2024 02:22:38 PM Interpretation: Performing Lab:[facility], [address] [place] [phone] Notes/Report: C Reactive Protein 0.12 < or = 0.50 mg/dL REASON FOR REFERRAL No Information MEDICATIONS Medication SIG (Take, Route, Frequency, Duration) Notes Start Date End Date Status Linzess 290 MCG TAKE 1 CAPSULE BY MO OHH EVERY DAY ORALLY 90 DAYS for 90 [...] day for 30 days 11/02/2019 Not-Taki ng Excedrin Migraine Ac tive MiraLax (colon [...] Hoyos's esophagus without dysplasia (K22.70) Active confirmed 359251044 Problem Crohn's disease of small intestine with abscess (K50.014) Active confirmed Abscess of intestine co-occurrent and due to Crohn's disease of small intestine (disorder) (19715363307 25420) Problem Crohn's disease of large intestine without complications (K50.10) Active confirmed 7853649 Problem Crohn's disease of large intestine with rectal bleeding (K50.111) Active confirmed 4065842 Problem Gastroesophageal reflux disease without esophagitis (K21.9) Active confirmed 123983405 Problem Irritable bowel syndrome with constipation (K58.1) Active confirmed 928208027 Problem Chronic idiopathic constipation (K59.04) Active confirmed 88352076 Problem Drug therapy (Z79.899) Active confirmed 684027650 Problem Irritable bowel syndrome with constipation and diarrhea (K58.2) Active confirmed 92514751 Problem Crohn''s disease without complication, unspecified gastrointestinal tract location (K50.90) Active confirmed 71004226 VITAL SIGNS Temperature 97.7 degrees Fahrenheit 05/02/2024 Blood pressure diastolic 00 mm Hg 05/02/2024 Height 62 in 05/02/2024 Blood pressure systolic 000 mm Hg 05/02/2024 Weight 134 lb 4 oz lbs 05/02/2024 BMI 24.55 kg/m2 05/02/2024 Encounters Encounter Location Date Provider Diagnosis [facility] [address] [address] [place], [place] [phone] 01/06/2024 Satinder Correa Jr Crohn's disease of small intestine with abscess K50.014 [facility] [address] [place] [address] 05/02/2024 Satinder Correa Jr Crohn's disease of large intestine with rectal bleeding K50.111 ; Gastroesophageal reflux disease without esophagitis K21.9 and Hoyos's esophagus without dysplasia K22.70 [facility] [address] [place] [address] 12/21/2023 Satinder Correa Jr Crohn's disease of large intestine without complications K50.10 and Gastroesophageal reflux disease, unspecified whether esophagitis present K21.9 [facility] [address] [place] [address] 11/03/2024 Satinder Correa Jr [facility] [address] [place] [address] 11/10/2023 Satinder Correa Jr [facility] [address] [place] [address] 11/11/2023 Satinder Correa Jr Crohn's disease of large intestine with rectal bleeding K50.111 [facility] [address] [place] [address] 11/17/2023 Satinder Correa Jr [facility] [address] [place] [address] 11/19/2023 Satinder Correa Jr [facility] [address] [place] [address] 12/08/2023 Satinder Correa Jr [facility] [address] [place] [address] 12/08/2023 Satinder Correa Jr [facility] [address] [place] [address] 12/16/2023 Satinder Correa Jr [facility] [address] [place] [address] 12/21/2023 Satinder Correa Jr [facility] [address] [place] [address] 12/21/2023 Satinder Correa Jr [facility] [address] [place] [address] 12/25/2023 Satinder Correa Jr [facility] [address] [place] [address] 12/28/2023 Satinder Correa Jr [facility] [address] [place] [address] 01/05/2024 Satinder Correa Jr [facility] [address] [place] [address] 01/08/2024 Satinder Correa Jr [facility] [address] [facility] [place] [address] 01/11/2024 Satinder Correa Jr [facility] [address] [place] 01/14/2024 Satinder Correa Jr [facility] [address] [place] 01/14/2024 Satinder Correa Jr [facility] [address] [place] [address] 01/18/2024 Satinder Correa Jr [facility] [address] [facility] [place] [address] 04/04/2024 Satinder Correa Jr Crohn's disease of large intestine with rectal bleeding K50.111 [facility] [address] [facility] [place] [address] 04/22/2024 Satinder Correa Jr [facility] [address] [facility] [place] [address] 08/03/2024 Satinder Correa Jr [facility] [address] [facility] [place] [address] 08/23/2024 Satinder Correa Jr [facility] [address] [place] [address] 08/26/2024 Satinder Correa Jr Crohn's disease of large intestine with rectal bleeding K50.111 and Chronic idiopathic constipation K59.04 ASSESSMENTS Encounter Date Diagnosis Assessment Notes Treatment Notes Treatment Clinical Notes 01/06/2024 Crohn's disease of small intestine with abscess (ICD-10 - K50.014) 05/02/2024 Crohn's disease of large intestine with [...] PROFILE 10/28/2023 LIVER PROFILE 10/05/2019 LIVER PROFILE 05/02/2024 LIVER PROFILE 11/11/2023 LIVER PROFILE 01/27/2019 LIVER PROFILE 12/08/2018 LIVER PROFILE 05/18/2023 LIVER PROFILE 03/31/2019 LIPASE 11/11/2023 LIPASE 01/27/2019 LIPASE 12/08/2018 LIPASE [...] w/o DIFF 10/05/2019 CBC w/o DIFF 05/18/2023 CBC w/o DIFF 05/02/2024 CBC w/o DIFF [...] Next Appt Details Provider Name:Satinder norman , 02/09/2025 02:15:00 PM, [address] [facility], [address], [place], [address], Insurance Providers Payer Name Payer Address Payer Phone Subscriber Number Group Number Insured Name Patient Relationship to Insured Coverage Start Date Coverage End Date [employer] [place] [address] [address] [place] [address] [id number] JUDY GRAY Self - patient is [...]
--- OUTSIDE RECORDS SUMMARY | 2024-11-08 18:09 | XMS_ITS ---
Author Organization [facility] Address [address] [place] [address] Care Team Providers Care Makeup Artist Name Role Phone PRASANNAMC RANDOLPH Primary Care Provider Unavailrashida e Satinder Correa Jr [phone] REASON FOR VISIT wants call back Encounters Encounter Location Date Provider Diagnosis [facility] [address] [place] [address] 08/23/2024 Satinder Correa Jr PLAN OF TREATMENT Next Appt Details Provider Name:Satinder norman Jr, 02/09/2025 02:15:00 PM, [address], [address], [place], [address],
[2024-11-09 12:52] LABS: Lutenizing Hormone 6.1 mIU/mL; Prolactin 7.8 ng/mL
[2024-11-14 01:18] LABS: Estradiol Ultra Sensitive 36 pg/mL
== END 2024-11-08 16:13 | disposition home or self-care (01) ==
LOC: HO.LAB 16:12
PROVIDERS: PCP Nurse Practitioner Family; Visit Provider Nurse Practitioner Adult Health
DX: N95.1 Menopausal and female climacteric states (principal)
CPT/HCPCS: 36415; 82670; 83001; 83002; 84146; 84443

== ENCOUNTER 2024-12-05 08:53 | Outpatient (AMB) | payer OTHER, SELFPAY ==
--- NOTE | 2024-12-05 08:57 | MHC.OFFVIS ---
Vital Signs 12/05/24 08:58 Height 5 ft 2 in Weight 138 lb 14.259 oz BMI 25.4 BP 116/72 Blood Pressure Location Rt brachial Position Sitting Pulse 80 Pulse Source Pulse Oximeter Intake Visit Reasons: Elevated PTH/T1DM KAZ/Left vm Intake Note: Patient presents today for a follow-up on T1DM KAZ & Elevated PTH: Last Diabetic eye exam was on: 11/26/2023 Last Podiatry exam was on: Patient does not see a Operations Section Manager Most recent HbA1c: 6.4%, 12/05/2024 Random Glucose- 112 mg/dL, Today Handle Turner Required: No Accompanied by: Self / Same As Patient Allergies cephalexin Allergy (Unknown, Verified 08/04/24 14:17) RASH Penicillins Allergy (Unknown, Verified 08/04/24 14:17) RASH Sulfa (Sulfonamide Antibiotics) Allergy (Unknown, Verified 08/04/24 14:17) RASH azithromycin [From Zithromax Z-Zackary] Allergy (Verified 08/04/24 14:17) Unknown sulfamethoxazole [From Bactrim] Allergy (Verified 08/04/24 14:17) Unknown trimethoprim [From Bactrim] Allergy (Verified 08/04/24 14:17) Unknown clindamycin Adverse Reaction (Mild, Verified 08/04/24 14:17) Itching Medication List - Last Reconciled 12/05/24 by Jaz Chapa MD acetone (urine) test (Ketostix strips) USE DIRECTED apixaban 5 mg PO BID ascorbate calcium (vitamin C) 500 mg PO DAILY [id number] 250-250-65 mg (Excedrin Migraine) 1 tab PO DAILY PRN atorvastatin 40 mg PO DAILY blood sugar diagnostic (FreeStyle Lite Strips) As directed test 4 times a day blood-glucose meter (FreeStyle Lite Meter kit) As directed blood-glucose meter,continuous (Dexcom G7 Woodyard Crane Operator) As directed blood-glucose sensor (Dexcom G7 Sensor device) APPLY DIRECTED TO TEST BLOOD SUGAR CHANGE OUT EVERY 10 DAYS cholecalciferol (vitamin D3) 25 mcg PO DAILY ferrous sulfate 325 mg PO DAILY fluconazole 150 mg PO Q3D 2 doses gabapentin 300 mg PO TID 90 days lancets (OneTouch Delica Plus Lancet) As directed test 3 times a day linaclotide (Linzess) 290 mcg PO DAILY loratadine 10 mg PO DAILY multivitamin 1 tab PO DAILY nystatin 1,000,000 units PO BID pantoprazole 40 mg PO BID paroxetine HCl ER 25 mg PO DAILY pen needle, diabetic (BD Monica 2nd Gen Pen Needle) USE 1 PEN NEEDLE UP TO 4 TIMES DAILY; spironolactone mg PO ustekinumab (Stelara) 90 mg subcut Q8W HPI Comments Details: 43-year-old female with past medical history significant for IBD, Kaz coming in today for follow up of elevated PTH and KAZ Elevated PTH Was complaining of fatigue which is why PTH and calcium levels were tested. Labs from 05/2024 showed calcium of 10.4 mg/dL with albumin of 4.5 grams/deciliter, vitamin-D 57.5 ng/mL and PTH of 95.7 pg/mL. Normal kidney function. no calcium supplements no kidney stones, 2023: kidneys unremarkable on abdominal CT scan, patient denies any hematuria no increased urination, no increased thirst, no abdominal pain currently but does have it with episodes of IBD has IBD and constipation is on Linzess following with GI at [facility], Dr. Keenan no fractures, bone denisty March 2023: normal z scores 06/18: PTH 95.7, Ca 10.4, albumin 4.4, vitamin D 57.5 Repeat labs May 2024 showed PTH of 91, calcium of 10.1, ionized calcium 5.3 which is normal Labs in June 2024 showed 24 hour urine calcium of 103 Currently not taking any vitamin D Was taking it up unit l May not sure what dose Not on calcium supplements Currenlty not eating milk, cheese, yogurt no calcium disorders in family , no kidney stones in the family has GERD and Barretts esophagus at EG junction, history of resolved pituitary adenoma, note: Consider MEN1 if patient has hyperparathyroidism on PPI 40 mg daily Interval history Currently taking vitamin-D 1000 units daily History of pituitary adenoma in the past: Resolved In May of 2023 when she was admitted in the hospital she was noted to have a 3 mm hypoenhancing lesion in the pituitary, that subsequently resolved on MRI repeated in October of 2023 Pituitary workup was unremarkable at that time no vision changes, intermittent headaches, no nipple discharge Interval history 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 Advised normal thyroid function and normal prolactin also noted. KAZ: /KAZ diagnosed 2014, who presents for management of diabetes. She was found to have + RODOLFO 65 antibodies in 2010 when she was trying to donate a kidney to her father. 2011 RODOLFO was 18.5 and in 2014 was 8.9, negative islet cell antibodies, she had detectable C-peptide and insulin level. Past medical history: (KAZ), 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, Chrone's disease, Raynaud's diesease Father: has type 2 DM no one has Type 1. Diabetes medications: peviously was on Toujeo 14 units, Humalog Insulin to carb ratio 1u:15g and correction of 1 unit for every 50mg/dl above 150mg/dl). she is currently not on any insulin. Stopped December 2023 5.8 % A1c in February 2024 A1c 6.2 % POC 12/05/24: 6.4% She wears a Dexcom G7 Interval history Remains off insulin Continuous glucose sensor Interpretation from November 22 to 12/05/2024 Average glucose 144 G mi 6.8% Time CGM active 93% Coefficient of variation 25.5% In target range 75th 7% of the time with 23% high readings. No hypoglycemic episodes. Complications Neuropathy: she does have paresthesias in feet but had Raynauds and radiculopathy Last eye visit: 12/19, no retinopathy Kidney function is normal No PR or stroke General: sitting comfortably in bed in no acute distress HEENT: normocephalic/atraumatic, moist oral mucosa Neck: supple Normal pulmonary effort Abd: not distended, no tenderness Extremities: no edema, no signs of myxedema Laboratory Tests 03/23/19 06/15/20 01/03/22 11:10 09:40 09:13 Creatinine Estimated GFR Glucose (Clinic) Hgb A1c (Clinic) C-Peptide 0.84 0.65 L 0.75 L Calcium Ionized Calcium Phosphorus Magnesium Albumin Triglycerides Cholesterol LDL Cholesterol, Calc HDL Cholesterol 25-OH Vitamin D Total TSH Estradiol Ultra LCMSMS FSH Luteinizing Hormone Prolactin PTH Intact Ur 24 Hour Volume Ur Creatinine mg/dL Ur Creatinine 24 Hour Urine Microalbumin Microalb/Creat Ratio Ur Calcium 24 Hr Calcium/Creat 24 Hr 08/14/23 08/14/23 01/04/24 09:08 09:10 13:05 Creatinine 0.78 Estimated GFR > 60 Glucose (Clinic) Hgb A1c (Clinic) C-Peptide Calcium Ionized Calcium Phosphorus Magnesium Albumin Triglycerides 193 Cholesterol 150 LDL Cholesterol, Calc 76 HDL Cholesterol 36 25-OH Vitamin D Total TSH Estradiol Ultra LCMSMS FSH Luteinizing Hormone Prolactin PTH Intact Ur 24 Hour Volume Ur Creatinine mg/dL Ur Creatinine 24 Hour Urine Microalbumin 10.0 Microalb/Creat Ratio 5.5 Ur Calcium 24 Hr Calcium/Creat 24 Hr 11/09/23 04/04/24 06/03/24 14:53 11:24 09:55 Creatinine 0.85 Estimated GFR > 60 Glucose (Clinic) Hgb A1c (Clinic) 5.8 C-Peptide Calcium 10.4 H Ionized Calcium Phosphorus Magnesium Albumin 4.4 Triglycerides Cholesterol LDL Cholesterol, Calc HDL Cholesterol 25-OH Vitamin D Total 57.5 TSH Estradiol Ultra LCMSMS FSH Luteinizing Hormone Prolactin PTH Intact 95.7 H Ur 24 Hour Volume Ur Creatinine mg/dL Ur Creatinine 24 Hour Urine Microalbumin Microalb/Creat Ratio Ur Calcium 24 Hr Calcium/Creat 24 Hr 06/09/24 07/08/24 07/08/24 17:00 08:00 Unknown Creatinine Estimated GFR Glucose (Clinic) Hgb A1c (Clinic) C-Peptide Calcium 10.1 Ionized Calcium 5.3 Phosphorus 4.1 Magnesium 2.1 Albumin 4.5 Triglycerides Cholesterol LDL Cholesterol, Calc HDL Cholesterol 25-OH Vitamin D Total TSH 1.34 Estradiol Ultra LCMSMS FSH Luteinizing Hormone Prolactin PTH Intact 91.9 H Ur 24 Hour Volume 550 Ur Creatinine mg/dL 158.91 Ur Creatinine 24 Hour 0.79 Urine Microalbumin Microalb/Creat Ratio Ur Calcium 24 Hr 103 Calcium/Creat 24 Hr 130 08/04/24 08/20/24 09/29/24 14:24 11:07 12:43 Creatinine Estimated GFR Glucose (Clinic) Hgb A1c (Clinic) 6.2 H C-Peptide 2.19 Calcium Ionized Calcium Phosphorus Magnesium Albumin Triglycerides Cholesterol LDL Cholesterol, Calc HDL Cholesterol 25-OH Vitamin D Total TSH 1.11 Estradiol Ultra LCMSMS 12 FSH 5.9 Luteinizing Hormone 1.8 Prolactin 5.5 PTH Intact Ur 24 Hour Volume Ur Creatinine mg/dL Ur Creatinine 24 Hour Urine Microalbumin Microalb/Creat Ratio Ur Calcium 24 Hr Calcium/Creat 24 Hr 11/08/24 12/05/24 12/05/24 16:28 09:00 09:08 Creatinine Estimated GFR Glucose (Clinic) 112 Hgb A1c (Clinic) 6.4 H C-Peptide Calcium Ionized Calcium Phosphorus Magnesium Albumin Triglycerides Cholesterol LDL Cholesterol, Calc HDL Cholesterol 25-OH Vitamin D Total TSH 1.23 Estradiol Ultra LCMSMS 36 FSH 8.0 Luteinizing Hormone 6.1 Prolactin 7.8 PTH Intact Ur 24 Hour Volume Ur Creatinine mg/dL Ur Creatinine 24 Hour Urine Microalbumin Microalb/Creat Ratio Ur Calcium 24 Hr Calcium/Creat 24 Hr Laboratory Tests 08/20/24 08/20/24 11:00 11:07 Triglycerides 59 Cholesterol 157 LDL Cholesterol, Calc 77 HDL Cholesterol 69 Urine Creatinine 283.67 Urine Microalbumin 20.0 Microalb/Creat Ratio 7.0 [facility] Medical History (Updated 09/02/24 @ 19:06 by Landon Mcgee, [facility]) Crohn's disease Hyperparathyroidism Barretts esophagus Allergic rhinitis GERD (gastroesophageal reflux disease) Diverticulitis IBS (irritable bowel syndrome) Pituitary abnormality Hx of sigmoidoscopy Pituitary adenoma Vitamin D deficiency Iron deficiency Normal pelvic exam Annual physical exam 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 termite 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) use of insulin 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), managed as type 1 Elevated cholesterol Anxiety Postlaminectomy syndrome of lumbar region Diabetes type 1, controlled Chronic pain syndrome 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 [employer] Cognitive needs: No Hearing needs: No Vision needs: Yes Physical Exam Vital Signs: Last Vital Signs Pulse 80 12/05/24 08:58 BP 116/72 12/05/24 08:58 BMI result Body Mass Index 25.4 Office Procedures Glucose Monitoring Details Details: see [facility] [id number] - Glucose monitoring, continuous-physician I&R Procedure code (CPT) selection complete Results AMB Hemoglobin A1c AMB Hemoglobin A1c 6.4 % Last Edit by SAKINA Sears on 12/05/24 09:11 Results Reviewed Results Reviewed: Laboratory Last Values Glucose (Clinic) 112 mg/dL (60-115) 12/05/24 09:00 Assessment & Plan Assessment & Plan (1) 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 Subsequently noted to have low C-peptide levels, and used to be on insulin however in December 2023 she discontinued all insulin as she was having multiple lows and was barely on any dosage. She wears a Dexcom CGM, and she is in range 77 % of the time. A1c today in clinic 6.4% which is stable from was 6.2% in July 2024 . she is not having any significant lows, . It is very surprising to see how she is in range without any insulin while she was requiring insulin previously and was treated as a type 1 patient. She could possibly be in the honeymoon phase but that does not last so far out into her diagnosis which was made in 2014. Educated the patient about risk of developing diabetic ketoacidosis with symptoms of nausea, vomiting, abdominal pain, mental status changes, feeling ill. She does have urine ketone strips . She also has her prior insulin at home. It is good that she wears the Dexcom which can monitor her blood sugars closely. If she has any of the above, she will reach out to us/go to the emergency room. I had previously plan to start her on a low-dose basal insulin, however her C-peptide levels are also normal from July 2024. At 2.39. This is very atypical. I am not really sure what to make of her honeymoon phase, and whether her being on her biologic has anything to do with this. I have asked her to continue to monitor her blood sugars and reach out to us if she starts having hyperglycemia or hypoglycemia consistently. Her blood pressure is at goal. Advised her to do 150 minutes of exercise in a week for maintenance of healthy weight No history of kidney disease, normal urine microalbumin and LDL within goal of less than 90 mg/dL from July 2024. Plan: -continue monitoring blood sugars. -follow up in 8 months (2) Hyperparathyroidism: Code(s): E21.3 - Hyperparathyroidism, unspecified Category: Medical Plan: PTH level elevated at 95.7 05/2024. No PTH levels done in the past. Calcium noted to be at 10.4 which is high however albumin level also noted to be at 4.4, correcting the calcium level for the albumin, calcium level is actually normal. Ionized calcium levels also noted to be normal. Repeat PTH level in May 2024 noted to be 91. She has normal vitamin-D levels. Given normal kidney function as well, this is not secondary hyperparathyroidism. 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 , and indications for surgery the same as primary hyperparathyroidism. In her case she does not have any kidney stones, her bone density was unremarkable March 2023, she has not had any fractures, her urine calcium levels are normal. Her only indication is age less than 50, however given normal calcium levels, I do not want to jump towards surgical management. At this time we will continue to monitor her with repeat labs in 8 months.. I have asked her to reach out sooner if she has fractures or develops kidney stones. She does have poor calcium intake, especially in the setting of IBD I have asked her to take at least 2000 units of vitamin-D daily, and calcium rich foods 2-3 servings daily to allow a 1000 mg of calcium in diet. She does have some nonspecific symptoms, however likely unrelated to her calcium levels which are normal. Plan: -plan to repeat blood work in 8 months -vitamin-D 1000 to 2000 units daily -calcium intake 1000 mg daily in diet with 2-3 servings of calcium rich foods = follow up in 8 months Plan See above Orders: Orders AMB Hemoglobin A1c Today E13.9 - Other specified diabetes mellitus without complications Albumin Level 7 Months E21.3 - Hyperparathyroidism, unspecified Calcium 7 Months E21.3 - Hyperparathyroidism, unspecified Parathyroid Hormone Intact 7 Months E21.3 - Hyperparathyroidism, unspecified Phosphorus 7 Months E21.3 - Hyperparathyroidism, unspecified Vitamin D 25-OH Total 7 Months E21.3 - Hyperparathyroidism, unspecified Calcium, Ionized 7 Months E21.3 - Hyperparathyroidism, unspecified AMB Glucose Monitoring Today E13.9 - Other specified diabetes mellitus without complications Patient Instructions: Do blood work in 7 months prior to next follow up Coding Level of Care Code Est Pt Level 3 (62742) Diagnoses 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
[2024-12-05 08:58] VITALS: BP 116/72; PULSE 80; BMI 25.4
[2024-12-05 09:05] LABS: Glucose, Whole Blood 112 mg/dL (60-115)
== END 2024-12-05 09:28 | disposition home or self-care (01) ==
PROVIDERS: PCP Internal Medicine; Visit Provider Student in an Organized Health Care Education/Training Program
DX: E13.9 Other specified diabetes mellitus without complications (principal); E21.3 Hyperparathyroidism, unspecified
CPT/HCPCS: 95251; 99213

== ENCOUNTER → 2024-12-05 08:53 | Outpatient (BNVA) | payer OTHER, SELFPAY | PROVIDERS: PCP Internal Medicine; Visit Provider Student in an Organized Health Care Education/Training Program | DX: E13.9 Other specified diabetes mellitus without complications (principal); E21.3 Hyperparathyroidism, unspecified | CPT/HCPCS: 82947; 83036 ==

== ENCOUNTER 2025-01-25 11:02 | Outpatient (AMB) | payer OTHER, SELFPAY ==
[2025-01-25 11:09] VITALS: BP 120/80; PULSE 95; O2SAT 100; BMI 26.0
--- NOTE | 2025-01-25 11:09 | A.OFFPC_ITS ---
Vital Signs 01/25/25 11:09 Height 5 ft 2 in Weight 142 lb BMI 26.0 BP 120/80 Blood Pressure Location Lt brachial Position Sitting Pulse 95 Pulse Source Pulse Oximeter Pulse Oximetry (%) 100 Oxygen Delivery Method Room Air Intake Visit Reasons: Annual PE Technical Service Representative Required: No Accompanied by: Self / Same As Patient Allergies cephalexin Allergy (Unknown, Verified 01/25/25 11:09) RASH Penicillins Allergy (Unknown, Verified 01/25/25 11:09) RASH Sulfa (Sulfonamide Antibiotics) Allergy (Unknown, Verified 01/25/25 11:09) RASH azithromycin [From Zithromax Z-Zackary] Allergy (Verified 01/25/25 11:09) Unknown sulfamethoxazole [From Bactrim] Allergy (Verified 01/25/25 11:09) Unknown trimethoprim [From Bactrim] Allergy (Verified 01/25/25 11:09) Unknown clindamycin Adverse Reaction (Mild, Verified 01/25/25 11:09) Itching Medication List - Last Reconciled 01/25/25 by KATELYNN Argueta acetone (urine) test (Ketostix strips) USE DIRECTED apixaban 5 mg PO BID ascorbate calcium (vitamin C) 500 mg PO DAILY uvondnh-bbtkdqudpsuko-sohhhqay 250-250-65 mg (Excedrin Migraine) 1 tab PO DAILY PRN atorvastatin 40 mg PO DAILY blood sugar diagnostic (FreeStyle Lite Strips) As directed test 4 times a day blood-glucose meter (FreeStyle Lite Meter kit) As directed blood-glucose meter,continuous (Dexcom G7 Scorer Helper) As directed blood-glucose sensor (Dexcom G7 Sensor device) APPLY DIRECTED TO TEST BLOOD SUGAR CHANGE OUT EVERY 10 DAYS cholecalciferol (vitamin D3) 25 mcg PO DAILY ferrous sulfate 325 mg PO DAILY gabapentin 300 mg PO TID 90 days lancets (OneTouch Delica Plus Lancet) As directed test 3 times a day linaclotide (Linzess) 290 mcg PO DAILY loratadine 10 mg PO DAILY multivitamin 1 tab PO DAILY nystatin 1,000,000 units PO BID pantoprazole 40 mg PO BID paroxetine HCl ER 25 mg PO DAILY pen needle, diabetic (BD Monica 2nd Gen Pen Needle) USE 1 PEN NEEDLE UP TO 4 TIMES DAILY; spironolactone mg PO ustekinumab (Stelara) 90 mg subcut Q8W Tobacco use date assessed: 01/25/25 Dental Screening Dental Screen Date: 01/25/25 Did you have a dental visit in the last 12 months?: Yes Did you have a dental problem in the last 6 months where you did not have access to dental care?: No Was dental information given to patient?: Patient has dentist HPI Annual PE HPI Details History of Present Illness The patient is a 44-year-old female presenting for a physical examination. She engages in regular follow-up with dermatology, endocrinology, and gastroenterol eleanor for ongoing management of her diagnosed conditions. Among her medical history, significant is Crohn's disease and hyperparathyroidism. Her diabetes mellitus is under control, requiring monitoring by endocrinology. Additionally, the patient has a pituitary adenoma, chronic lower back pain, and postlaminectomy syndrome, for which she consults pain management specialists in the past. During this visit, attention is also directed to the patient's completed routine health maintenance screenings, with mammograms, colon screenings, paps, handled by respective specialists. She has a healing scab on her distal Achilles secondary to a shaving incident, with no signs of infection. The patient's overall health status is reportedly well. Health Maintenance - Up-to-date mammogram screening - Regular gynecological care including P ap smears - Colon screening through gastroenterolo gy - Regular follow-up appointments with de rmatology, endocrinology, gastroenterology, and pain management Social History Review of Systems - Dermatologic: Reports healing scab on distal Achilles. Physical Exam General: Cooperative, healthy appearing, comfortable, no acute distress and well developed Orientation: Patient oriented x3 Limitations: No limitations Head: Normal to inspection Ears: Hearing grossly normal bilaterally Nose: Normal external nose present Face and sinus: Normal facial exam Eyes: Appearance normal, both eyes and all related structures Neck: Normal visual inspection and Yes full ROM Respiratory: Normal respiratory effort and able to speak in complete sentences. Clear to auscultation bilaterally Cardiovascular: Regular rate and rhythm. Normal S1 and S2 GI: Normal to inspection. Soft to palpation and nontender Skin: No rashes or lesions noted. Scab to distal Achilles, healing, no signs of secondary infection, fair skinned, multiple freckles Neuro: Patient oriented x3 Extremities: Normal to inspection Results Plan A comprehensive review confirmed the ongoing management of Crohn?s disease under gastroenterology and continued monitoring of hyperparathyroidism and diabetes through endocrinology, with diabetes being well-controlled presently. The pituitary adenoma requires routine assessment, while her chronic pain conditions may consider future adjustments after review. The Achilles scab is healing well with no infection signs. Routine screenings, such as mammograms and gynecological evaluations, are up-to-date. considering increasing her gabapentin for radiculopathy, lower back pain. Discussion Notes During the visit, we discussed the management and monitoring of her chronic conditions, including Crohn's disease, hyperparathyroidism, diabetes mellitus, and the pituitary adenoma. We reviewed pain management strategies, with consideration for future adjustments to her gabapentin dosage. All current treatment plans appear to be effective, and ongoing care with her specialists is advised. I communicated the importance of maintaining regular health screenings and monitoring for any changes in her conditions. Patient Instructions - Continue regular follow-up with dermat ology, endocrinology, gastroenterology, and pain management specialists. - Keep up with routine health screenings , including mammograms and gynecological exams. - Monitor the healing of your Achilles s cab and report any signs of infection. - Maintain your diabetes care regimen as discussed with your underwear welter. - Watch for changes in your symptoms and inform your healthcare provider if concerns arise. 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 1. Little interest or pleasure in doing things: not at all 2. Feeling down, depressed, or hopeless: not at all 3. Trouble falling or staying asleep, or sleeping too much: not at all 4. Feeling tired or having little energy: several days 5. Poor appetite or overeating: several days 6. Feeling bad about yourself - or that you are a failure or have let yourself or your family down: not at all 7. Trouble concentrating on things, such as reading the newspaper or watching television: not at all 8. Moving or speaking so slowly that other people could have noticed. Or the opposite - being so fidgety or restless that you have been moving around a lot more than usual: not at all 9. Thoughts that you would be better off or of hurting yourself in some way: not at all Total score: 2 Depression Screening Interpretation: Negative Depression Screening Done: Yes 89847 - PHQ-9 Billing: Yes Source: Developed by Drs. Luis Ferraro, Sandra Miller, En Crespo and colleagues, with an educational alyssa from [employer]. Thrive Questionnaire Date Thrive assessed: 01/25/25 I am a: Patient What is your living situation today?: I have a steady place to live Within the past 12 months, did the food you bought not last and you didn't have the money to get more?: Never true Within the past 12 months, did you worry whether your food would run out before you got money to buy more?: Never true Do you have trouble paying for medicines?: No Do you have trouble getting transportation to medical appointments?: No Do you have trouble paying your heating and electricity bill?: No Do you have trouble taking care of your child, family member or friend?: No Do you have trouble with day-to-day activities such as bathing, preparing meals, shopping, managing finances, etc.?: No Are you currently unemployed and looking for a job?: No Are you interested in more education?: No Please select the resources that you would like help with: None Currently or been in a relationship where the following occur: No concerns reported THRIVE Score: 0 AUDIT C Alcohol Use Questionnaire (AUDIT-C) 1. How often do you have a drink containing alcohol?: Monthly or less 2. How many drinks containing alcohol do you have on a typical day when you are drinking?: 1 or 2 3. How often do you have six or more drinks on one occasion?: Never Total Score: 1 Score Reviewed/Action Taken: Yes RODOLFO-7 AMB Questionnaire RODOLFO-7 Date RODOLFO - 7 assessed: 01/25/25 Feeling nervous, anxious, or on edge: 0 = Not at all Not being able to stop or control worryin = Not at all Worrying too much about different things: 0 = Not at all Trouble relaxin = Several days Being so restless that it is hard to sit still: 0 = Not at all Becoming easily annoyed or irritable: 0 = Not at all Feeling afraid as if something awful might happen: 0 = Not at all Total RODOLFO-7 score (0-4 normal; 5-9 mild; 10-14 moderate; 15-21 severe): 1 Source: Developed by Drs. Luis Ferraro, Sandra Miller, En Crespo and colleagues, with an educational alyssa from [employer]. RODOLFO-7 Assessment Billing RODOLFO-7 Assessment Tool: RODOLFO-7 Assessment 74999 Physical exam (Primary Care) Vital Signs: Last Vital Signs Pulse 95 01/25/25 11:09 BP 120/80 01/25/25 11:09 Pulse Ox 100 01/25/25 11:09 Oxygen Delivery Method Room Air 01/25/25 11:09 BMI result Body Mass Index 26.0 Tobacco/Smoking Status: Tobacco use Status Tobacco use date assessed 01/25/25 01/25/25 11:13 Patient Tobacco Use Status Never used Tobacco 01/25/25 11:13 e-Cigarette/Vaping Use Never Used 01/25/25 11:13 PHQ-9: PHQ-9 Score PHQ-9: Total score 2 01/25/25 11:13 Depression Screening Interpretation: Negative Thrive Assessment: Date of Thrive Assessment Date Thrive assessed 01/25/25 01/25/25 11:13 Currently or been in a relationship where the following occur: No concerns reported Coding Level of Care Code Est Pt Prev Care 40-64y(63291) Diagnoses Annual physical exam Z00. Vitamin D deficiency E55.9 Additional Codes RODOLFO-7 Assessment Billing - RODOLFO-7 Assessment Tool: RODOLFO-7 Assessment 86705 ([id number]) PHQ-9 - 64357 - PHQ-9 Billing: Yes ([id number]) Assessment & Plan Assessment & Plan (1) Annual physical exam: Code(s): Z00.00 - Encounter for general adult medical examination without abnormal findings Category: Medical (2) Vitamin D deficiency: Code(s): E55.9 - Vitamin D deficiency, unspecified Category: Medical Plan . Orders: Orders Comprehensive White Owl. Panel Fast Today Z00.00 - Encounter for general adult medical examination without abnormal findings TSH reflex Free T4 Today Z00.00 - Encounter for general adult medical examination without abnormal findings UA CC w/rflx Micro + Cult Today Z00.00 - Encounter for general adult medical examination without abnormal findings Complete Blood Count Auto Diff Today Z00.00 - Encounter for general adult medical examination without abnormal findings Lipid Panel Today Z00.00 - Encounter for general adult medical examination without abnormal findings Vitamin D 25-OH Total Today E55.9 - Vitamin D deficiency, unspecified
--- OUTSIDE RECORDS SUMMARY | 2025-01-25 13:22 | XMS_ITS | Encounter Summary ---
Author Organization [facility] Address [address] [place] [address] Care Team Providers Care Solution Spec Name Role Phone Caron Montes De Oca NP Primary Care Provider Unavailabl e Reason for Visit * Reason Onset Date Comments refill request 09/19/2019 Encounter Details Date Type Department Care Team Description 09/19/2019 Refill Physiatry - [address] [address] Fernando Gar DO refill request Social History Tobacco Use Types Packs/Day Years Used Date Smoking Tobacco: Never Smokeless Tobacco: Never Alcohol Use Standard Drinks/Week Comments No 0 (1 standard drink = 0.6 oz pur e alcohol) Sex Assigned at Date Recorded Not on file documented as of this encounter Miscellaneous Notes * Telephone Encounter - Polly Coreas L.P.N. - 09/19/2019 10:19 AM EST Last refill 06/28/19 Last visit 06/28/19 Next visit 09/27/19 * Telephone Encounter - Mini Ruvalcaba - 09/19/2019 10:09 AM EST Patient would like script to be: PLACED IN PATIENT MANAGER BRAND TO BE PICKED UP BY patient (THE MEDICATION REQUESTED IS ON THE MED LIST ABOVE) All of the medications requested were on the CURRENT MEDS list Did you check the Pharmacy information above?: YES Patient wants: 30 -day supply Is this a mail order prescription request ? NO If the refill is from a FAXED refill request what is the RX # listed on the fax? N/A Patients current insurance carrier is: Payor: [employer] / Plan: PPO $20 [place] [id number] /Product Type: PPO [id number] documented in this encounter Plan of Treatment Not on file documented as of this encounter Visit Diagnoses Diagnosis Chronic bilateral low back pain with right-sided sciatica Lumbar radiculitis Thoracic or lumbosacral neuritis or radiculitis, unspecified Sacroiliac pain Disorders of sacrum Hand numbness Disturbance of skin sensation documented in this encounter Care Teams Solution Spec Relationship Specialty Start Date End Date Caron Montes De Oca NP PCP - General Internal Medicine 06/22/19 documented as of this encounter
--- OUTSIDE RECORDS SUMMARY | 2025-01-25 13:22 | XMS_ITS ---
Author Organization [facility] Address [address] [place] [phone] Care Team Providers Care Evening Sitter Name Role Phone [facility] PEDRO Primary Care Provider Corey Correa Jr, Satinder Fontana REASON FOR VISIT RX Refill Medications Medication SIG (Take, Route, Frequency, Duration) Notes Start Date End Date Status Pantoprazole Sodium 40 MG TAKE 1 TABLET BY MOUTH Once a day for 30 days Active Encounters Encounter Location Date Provider Diagnosis [facility] [address] [place] [phone] 11/17/2024 Satinder Correa Jr Plan Of Treatment Medication Medication Name Sig Start Date Stop Date Notes Pantoprazole Sodium 40 MG TAKE 1 TABLET BY MOUTH Once a day for 30 days Next Appt Details Provider Name:Satinder norman Jr, 02/09/2025 02:15:00 PM, [address] [place] [address], Suite [facility], [place], [address], Progress Notes * JUDY GRAY MDOB:[birth year] (44 yo F)Acc No.[id number]:11/17/2024 Patient:?JUDY GRAY :1980???Age:44 Y???Sex:Female Address:[address] [place] [address] * Refills? Refill Pantoprazole Sodium Tablet Delayed Release, 40 MG, 30, TAKE 1 TABLET BY MOUTH, Once a day, 30 days, Refills=6 * true * Date:? Generated for Parth cobb/Colleen/Nguyen on:?01/25/2025 01:21 PM EDT
--- OUTSIDE RECORDS SUMMARY | 2025-01-25 13:22 | XMS_ITS ---
Author Organization [facility] Address [address] [place] [address] Care Team Providers Care Reduction Plant Supervisor Name Role Phone MC PEDRO Primary Care Provider UnavailSatinder Romero Jr REASON FOR VISIT Patient presents today for crohn's Encounters Encounter Location Date Provider Diagnosis [facility] [address] [place] [address] 11/03/2024 Satinder Correa Jr Plan Of Treatment Next Appt Details Provider Name:Satinder norman Jr, 02/09/2025 02:15:00 PM, [address] [facility] [facility], [address], [place], [address], Progress Notes * JUDY GRAY MDOB:[birth year] (44 yo F)Acc No.[id number]:11/03/2024 Progress Notes Patient:?JUDY GRAY Provider:?Satinder Correa MD :1980???Age:44 Y???Sex:Female D ate:11/03/2024 Address:[address] [place], [place] [id number] Pcp:[facility] PEDRO Subjective: * Chief Complaints: * ???1. Patient presents today for crohn's. * Medical History:? Objective: * Vitals:? Assessment: Plan: * Treatment: * * The named appointment provid er may or may not be the originator of this progress note, and it is not deemed complete until electronically signed by the appointment provider. Sign off status: Pending * Provider:?Satinder Correa MD Date:?0 11/03/2024 Generated for Parth cobb/Colleen/Nguyen on:?01/25/2025 01:21 PM EDT
--- OUTSIDE RECORDS SUMMARY | 2025-01-25 13:22 | XMS_ITS ---
Author Organization [facility] Address [address] [place] [address] Care Team Providers Care Research Instrumentation Technician Name Role Phone MC PEDRO Primary Care Provider Satinder Pisano Jr REASON FOR VISIT labs Encounters Encounter Location Date Provider Diagnosis [facility] [address] [place] [address] 11/14/2024 Satinder Correa Jr Plan Of Treatment Next Appt Details Provider Name:Satinder norman Jr, 02/09/2025 02:15:00 PM, [address], [address], [place], [address], Progress Notes * JUDY GRAY MDOB:[birth year] (44 yo F)Acc No.[id number]:11/14/2024 Patient:?JUDY GRAY :1980???Age:44 Y???Sex:Female Address:[address] [place] [address] * true * Date:? Generated for Printi ng/Faxing/eTransmitting on:?01/25/2025 01:21 PM EDT
--- OUTSIDE RECORDS SUMMARY | 2025-01-25 13:22 | XMS_ITS | Encounter Summary ---
Author Organization [facility] Address [address] [place] [address] Care Team Providers Care Stone Cutter Name Role Phone Van, Pcp Primary Care Provider Caron Fisher NP Primary Care Provider Corey powell Encounter Details Date Type Department Care Team Description 06/20/2019 Fitness Coach Report Medical Records [address] [place] [address] Leonides Ricci PA-C [address] [place] [address] [address] [place] [address] Social History Tobacco Use Types Packs/Day Years Used Date Smoking Tobacco: Never Alcohol Use Standard Drinks/Week Comments No 0 (1 standard drink = 0.6 oz pur e alcohol) Sex Assigned at Date Recorded Not on file documented as of this encounter Plan of Treatment Not on file documented as of this encounter Visit Diagnoses Not on filedocumented in this encounter Care Teams Stone Cutter Relationship Specialty Start Date End Date Van, Pcp PCP - General 07/06/03 06/21/19 Caron Montes De Oca NP PCP - General Internal Medicine 06/22/19 documented as of this encounter
--- OUTSIDE RECORDS SUMMARY | 2025-01-25 13:22 | XMS_ITS | Encounter Summary ---
Author Organization [facility] Address [address] [place] [address] Care Team Providers Care Bacon De Rinder Name Role Phone Caron Montes De Oca NP Primary Care Provider Unavailabl e Encounter Details Date Type Department Care Team Description 02/13/2021 [facility] Caretaker Report Medical Records [address] [place] [address] Fredy Chang Social History Tobacco Use Types Packs/Day Years [...] on filedocumented in this encounter Care Teams Bacon De Rinder Relationship Specialty Start Date End Date Caron Montes De Oca NP PCP - General Internal Medicine 06/22/19 documented as of this encounter
--- OUTSIDE RECORDS SUMMARY | 2025-01-25 13:22 | XMS_ITS | Encounter Summary ---
Author Organization [facility] Address [address] [place] [address] Care Team Providers Care Diamond Sizer And Sorter Name Role Phone Caron Montes De Oca NP Primary Care Provider Unavailabl e Encounter Details Date Type Department Care Team Description 12/24/2020 Saw Operator Report Medical Records [address] [place] [address] Fredy Chang Social History Tobacco Use Types [...] on filedocumented in this encounter Care Teams Diamond Sizer And Sorter Relationship Specialty Start Date End Date Caron Montes De Oca NP PCP - General Internal Medicine 06/22/19 documented as of this encounter
--- OUTSIDE RECORDS SUMMARY | 2025-01-25 13:22 | XMS_ITS | Clinical Summary ---
Author Organization [facility] Address [address] [place] [address] Care Team Providers Care Admitting Office Escort Name Role Phone Emi Briceño MD Primary Care Provider [phone] Social History Tobacco Use Types Packs/Day Years Used Date Smoking Tobacco: Never Assessed Sex and Gender Information Value Date Recorded Sex Assigned at Female 06/21/2019 10:09 AM EDT Gender Identity Not on file Sexual Orientation Not on file Plan of Treatment Health Maintenance Due Date Last Done Comments Hepatitis B Vaccines (1 of 3 - 3-dose series) 1980 Hepatitis C Screening 1980 COVID-19 Vaccine (#1) 01/06/1980 Depression Screening 1991 Preventative Health Evaluation 1997 DTap / Tdap / Td (1 - Tdap) 1998 Cervical Cancer Screening (Pap Smear) 2000 Influenza Vaccine (#1) 2024 5, 07/25/2011 Colon Cancer Screening (Colonoscopy) 2024 Pneumococcal Vaccine Aged Out No long er eligible based on patient's age to complete this topic RSV Ped < 20 months Aged Out No longe r eligible based on patient's age to complete this topic Care Teams Admitting Office Escort Relationship Specialty Start Date End Date Emi Briceño MD [address] [place] [address] PCP - General Chemical Treatment Plant Technician 02/06/21
== END 2025-01-25 11:55 | disposition home or self-care (01) ==
LOC: HO.HMCC 11:03
PROVIDERS: PCP Internal Medicine; Visit Provider Nurse Practitioner Family
DX: Z00.00 Encounter for general adult medical examination without abnormal findings (principal); E55.9 Vitamin D deficiency, unspecified

== ENCOUNTER → 2025-01-25 11:02 | Outpatient (BNVA) | payer OTHER, SELFPAY | PROVIDERS: PCP Internal Medicine; Visit Provider Nurse Practitioner Family | DX: Z00.00 Encounter for general adult medical examination without abnormal findings (principal); E55.9 Vitamin D deficiency, unspecified | CPT/HCPCS: 96127 ==

== ENCOUNTER 2025-03-16 16:51 | Outpatient (REF) | payer OTHER, SELFPAY ==
[2025-03-16 17:19] LABS: Appearance Urine Clear; Color Urine Yellow; Glucose Urine UA Negative (Negative); Leukocyte Esterase Urine Small (1+) (Negative); Nitrite Urine Negative (Negative); Specific Gravity - Urine >= 1.030 (1.005-1.025); UMIC TRIGGER UA YES; Urine Blood Negative (Negative); Urine Ketones Trace mg/dL (Negative); Urine Protein Trace mg/dL (Neg-Trace)
[2025-03-16 17:23] LABS: Bacteria Urine None Seen (None Seen); RBC Urine 0-2 /HPF (0-2)
== END 2025-03-16 16:52 | disposition home or self-care (01) ==
LOC: HO.LAB 16:51
PROVIDERS: PCP Nurse Practitioner Family; Visit Provider Obstetrics & Gynecology
DX: R39.9 Unspecified symptoms and signs involving the genitourinary system (principal)
CPT/HCPCS: 81001; 87086

== ENCOUNTER 2025-04-03 08:53 | Outpatient (AMB) | payer OTHER, SELFPAY ==
--- NOTE | 2025-04-03 09:03 | AM.OFFVISNUR ---
Intake Visit Reasons: Hep B Intake Note: Pt arrived for Hep B #3 Allergies cephalexin Allergy (Unknown, Verified 01/25/25 11:09) RASH Penicillins Allergy (Unknown, Verified 01/25/25 11:09) RASH Sulfa (Sulfonamide Antibiotics) Allergy (Unknown, Verified 01/25/25 11:09) RASH azithromycin [From Zithromax Z-Zackary] Allergy (Verified 01/25/25 11:09) Unknown sulfamethoxazole [From Bactrim] Allergy (Verified 01/25/25 11:09) Unknown trimethoprim [From Bactrim] Allergy (Verified 01/25/25 11:09) Unknown clindamycin Adverse Reaction (Mild, Verified 01/25/25 11:09) Itching Immunizations Engerix-B (PF) 20 mcg/mL intramuscular suspension Performing Provider: SIMA Argueta Performing Location: [facility] Administered by: Yissel Jiménez RN on 04/03/25 09:03 Dose Route Admin Location Dispensed Lot Number Expiration Date [facility] Foundation Relations Director 1 mL IM Left Deltoid 1.0 mL [id number] 06/15/26 [id number] [employer] VIS Given Date VIS Provided VIS Publication Date 04/03/25 Single Vaccine 24 Eligibility Eligibility Date Funding Source Not [facility] Eligible 04/03/25 Private Assessment & Plan Assessment & Plan Orders: Orders Hepatitis B Adult Immunization Today Z23 - Encounter for immunization Medications: New Engerix-B (PF) (hepatitis B virus vacc.rec(PF)) 1 mL IM ONCE 1 mL 0RF NS Z23 - Encounter for immunization Coding
--- OUTSIDE RECORDS SUMMARY | 2025-04-03 09:07 | XMS_ITS ---
Author Organization [facility] Address [address] [place] [address] Care Team Providers Care Fire Hazard Inspector Name Role Phone MC PEDRO Primary Care Provider Satinder Pisano Jr [phone] REASON FOR VISIT labs Encounters Encounter Location Date Provider Diagnosis [facility] [address] [place] [address] 11/14/2024 Satinder Correa Jr Plan Of Treatment Next Appt Details Provider Name:Satinder norman Jr, 02/12/2026 09:20:00 AM, [address], [address], [place], [address], Progress Notes * JUDY GRAY MDOB:[birth year] (44 yo F)Acc No.[id number]:11/14/2024 Patient:?JUDY GRAY :1980???Age:44 Y???Sex:Female Address:[address] [place] [address] * true * Date:? Generated for Printi ng/Faxing/eTransmitting on:?04/03/2025 09:06 AM EDT
== END 2025-04-03 09:10 | disposition home or self-care (01) ==
LOC: HO.HMCC 08:54
PROVIDERS: PCP Nurse Practitioner Family; Visit Provider Nurse Practitioner Family
DX: Z23 Encounter for immunization (principal)

== ENCOUNTER → 2025-04-03 08:53 | Outpatient (BNVA) | payer OTHER, SELFPAY | PROVIDERS: PCP Nurse Practitioner Family; Visit Provider Nurse Practitioner Family | DX: Z23 Encounter for immunization (principal) | CPT/HCPCS: 90471; 90746 ==

== ENCOUNTER 2025-08-02 08:50 | Outpatient (REF) | payer OTHER, SELFPAY ==
[2025-08-02 11:21] LABS: Albumin Level 4.4 g/dL (3.5-5.0); Calcium 9.4 mg/dL (8.4-10.2)
[2025-08-02 11:31] LABS: Parathyroid Hormone Intact 88.5 pg/mL (8.7-77.1)
[2025-08-04 15:48] LABS: Calcium, Ionized 5.2 mg/dL (4.7-5.5)
== END 2025-08-02 08:51 | disposition home or self-care (01) ==
LOC: HO.HMGCLDS 08:50
PROVIDERS: Absent Provider Nurse Practitioner Family; PCP Nurse Practitioner Family; Visit Provider Student in an Organized Health Care Education/Training Program
DX: E21.3 Hyperparathyroidism, unspecified (principal); Z13.21 Encounter for screening for nutritional disorder
CPT/HCPCS: 36415; 82040; 82306; 82310; 82330; 83970; 84100

== ENCOUNTER 2025-08-07 10:52 | Outpatient (REF) | payer OTHER, SELFPAY ==
--- OUTSIDE RECORDS SUMMARY | 2024-11-03 11:55 | XMS_ITS ---
Author Organization [facility] Address [address] [place] [address] Care Team Providers Care Horse Trekking Guide Name Role Phone MC PEDRO Primary Care Provider UnavailSatinder Romero Jr [phone] REASON FOR VISIT Patient presents today for crohn's Encounters Encounter Location Date Provider Diagnosis [facility] [address] [place] [address] 11/03/2024 Satinder Correa Jr Plan Of Treatment Next Appt Details Provider Name:Satinder norman Jr, 02/14/2026 09:40:00 AM, [address] [facility], [address], [place], [address], Progress Notes * JUDY GRAY MDOB:[birth year] (45 yo F)Acc No.[id number]:11/03/2024 Progress Notes Patient: Nicolasa JIANGJUDY Ash Provider: Oliverio Correa MD :1980 A ge:44 Y S ex:Female Date:11/03/2024 Address:[address] [place], [place] [phone] Pcp:[facility] PEDRO Subjective: * Chief Complaints: * [...] 0 11/03/2024 Generated for Parth cobb/Colleen/Nguyen on: 1 10:54 AM EDT
--- OUTSIDE RECORDS SUMMARY | 2025-08-07 10:54 | XMS_ITS | Clinical Summary ---
Author Organization [facility] Address [address] [place] [address] Care Team Providers Care Bench Shear Operator Name Role Phone Emi Briceño MD Primary Care Provider [phone] Social History Tobacco Use Types Packs/Day Years [...] 1998 Cervical Cancer Screening (Pap Smear) 2000 Colon Cancer Screening (Colonoscopy) 2024 Influenza Vaccine (#1) 2025 , 07/25/2011 Pneumococcal Vaccine Aged Out No long er eligible based on patient's age to complete this topic RSV Ped < 20 months Aged Out No longe r eligible based on patient's age to complete this topic Care Teams Bench Shear Operator Relationship Specialty Start Date End Date Emi Briceño MD [address] [place], [place] [address] PCP - General Multi Slide Machine Tender 02/06/21
--- OUTSIDE RECORDS SUMMARY | 2025-08-07 10:54 | XMS_ITS | Clinical Summary ---
Author Organization [facility] Address [address] [place] [address] Phone Care Team Providers Care Top Printing Press Operator Name Role Phone Pcp, Unknown Primary Care Provider Unavailabl e Allergies Active Allergy Reactions Criticality Noted Date Comments Azithromycin Diarrhea 12/02/2017 Cephalexin Rash Low 12/02/2017 Penicillins Rash Low 12/02/2017 Sulfa (Sulfonamide Antibiotics) Rash Low 04/2018 Medications pantoprazole (PROTONIX) 40 MG tablet Take 40 mg by mouth daily. Active adalimumab (HUMIRA) 40 mg/0.8 mL subcutaneous syringe Inject 40 mg under the skin once a week. Active PROAIR HFA 90 mcg/actuation inhaler Inhale 2 puffs into the lungs every 4 (four) hours as needed. 0 8 Active loratadine (CLARITIN) 10 mg tablet Take 10 mg by mouth daily. Active atorvastatin (LIPITOR) 20 MG tablet Take 20 mg by mouth daily. 8 8 Active ONETOUCH VERIO Strp strips qid 11 8 Active ONETOUCH VERIO MID CONTROL Soln daily 3 8 Active GLUCAGEN HYPOKIT 1 mg injection Inject 1 mg as directed as needed. 6 8 Active JUNEL FE 11/14, , 1 mg-20 mcg (21)/75 mg (7) per tablet Take 1 mg by mouth daily. 0 8 Active BD ULTRA-FINE JONATHAN PEN NEEDLE 32 gauge x Ndle U QID 11 8 Active insulin glargine U-300 (TOUALE SOLOSTAR) 300 unit/mL (1.5 mL) injection pen Inject 10 Units under the skin every morning. Active hyoscyamine (LEVSIN SL) 0.125 mg SL tablet Take 0.125 mg by mouth every 4 (four) hours as needed. 6 8 Active linaCLOtide (LINZESS) 145 mcg Cap Take 145 mcg by mouth daily. Active azaTHIOprine (IMURAN) 50 mg tablet Take 50 mg by mouth 2 (two) times a day. 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 Cough 12/02/2017 Crohn's disease of large intestine 12/02/2017 Depression 12/02/2017 Gastroesophageal reflux disease without esophagi tis 12/02/2017 Irritable bowel syndrome without diarrhea 2017 Abdominal bloating 12/02/2017 Resolved Problems Problem Noted Date Diagnosed Date Resolved Date Sciatica of right side 12/02/201711/05 Immunizations Immunization Administration Dates Next Due INFLUENZA, SPLIT VIRUS, TRIVALENT W/ PRESERVATIV E IM 08/23/2015,07/25/2011 Family History Medical History Relation Comments Cancer Father 2 Diabetes mellitus Father 2 Hypertension Father 2 Cancer Mother 2 Relation Status Comments Father 1 Alive Father 2 Mother 1 Mother 2 Social History Tobacco Use Types Packs/Day Years Used Date Smoking Tobacco: Never Smokeless Tobacco: Never Alcohol Use Standard Drinks/Week Comments Yes 0 (1 standard drink = 0.6 oz pur e alcohol) rarely, holidays Education Answer Date Recorded Are you interested in more education? Not on elysia e 02/20/2023 Are you concerned about learning? Not on file 02/20/2023 No 02/20/2023 No 02/20/2023 Digital Access Answer Date Recorded No 03/20/2023 No 03/20/2023 Reliable internet access at home? Not on file 03/20/2023 Device with a working camera? Not on file Comments Unknown Sex and Gender Information Value Date Recorded Sex Assigned at Not on file Legal Sex Female 9:23 PM EDT Gender Identity Not on file Sexual Orientation Not on file Last Filed Vital Signs Vital Sign Reading Time Taken Comments Blood Pressure 118/82 06/14/2019 11:29 AM EDT Pulse 80 06/14/2019 11:29 AM EDT Temperature 36.3 C (97.4 F) 05/18/2019 3:49 PM EDT Respiratory Rate 16 05/18/2019 3:49 PM EDT Oxygen Saturation 99% 06/14/2019 11:29 AM EDT Inhaled Oxygen Concentration - - Weight 62.1 kg (137 lb) 06/14/2019 11:29 AM EDT Height 157.5 cm (5' 2.01 ) 05/18/2019 3:49 PM ED T Body Mass Index 25.05 05/18/2019 3:49 PM EDT Plan of Treatment Health Maintenance Due Date Last Done Comments ALKALINE PHOSPHATASE LEVEL 1979 Adult Td,Tdap Booster 1979 BLOOD PRESSURE 1979 CREATININE LEVEL 1979 HEPATITIS C SCREENING 1997 HIV ONE-TIME SCREENING (18-65 YEARS) 1997 PNEUMOCOCCAL VACCINES (0-49 years) (1 of 2 - PCV) 1998 PAP SMEAR 11/17/2016 11/17/2013 HEMOGLOBIN A1C 11/18/2019 05/18/2019, 07/12/2018 DEPRESSION SCREENING 05/18/2020 05/18/2019 URINE MICROALBUMIN/CREATININE RATIO 05/18/2020 05/18/2019, 04/07/2018 DIABETIC EYE EXAM 08/26/2020 08/26/2019 COVID-19 VACCINE (3 - Pfizer risk series) 12/05/2020 11/07/2020, 10/17/2020 MAMMOGRAM 09/23/2021 09/23/2019 COLOGUARD 2024 COLONOSCOPY 2024 COLORECTAL CANCER SCREENING 2024 FIT TEST 2024 FOBT 2024 SIGMOIDOSCOPY 2024 VIRTUAL COLONOSCOPY 2024 INFLUENZA VACCINE (#1) 2025 0, 11/04/2019, 08/11/2018, Additional history exists SMOKING STATUS SCREENING (Once After 26 Yrs) Completed 06/14/2019 HEPATITIS A VACCINES Aged Out No long er eligible based on patient's age to complete this topic HIB VACCINES Aged Out No longer eligi ble based on patient's age to complete this topic MENINGOCOCCAL VACCINES (ACWY) Aged Out No longer eligible based on patient's age to complete this topic MENINGOCOCCAL VACCINES (B) Aged Out N o longer eligible based on patient's age to complete this topic Medical Devices Not on file Procedures Procedure Name Priority Date/Time Associated Diagnosis Comments MAMMOGRAPHY Routine 09/23/2019 DIABETES EYE EXAM FOR RESULT ENTRY ONLY Routine 08/26/2019 POCT HEMOGLOBIN A1C Routine 05/18/2019 5 :00 PM EDT Autoimmune diabetes MICROALBUMIN/CREATIN INE RATIO, RANDOM URINE Routine 05/18/2019 4:19 PM EDT Autoimmune diabetes PAP SMEAR FOR RESULT ENTRY ONLY Routine 11/17/2013 from Last 3 Months or Most Recently Relevant to Health Maintenance Results * MAMMOGRAPHY FOR RESULT ENTRY ONLY (09/23/2019) us Honorio Peña MD HEALTH MAINTENANCE Edited Res ult - Final * DIABETES EYE EXAM FOR RESULT ENTRY ONLY (08/26/2019) us Historical Provider HEALTH MAINTENANCE Final Result * (ABNORMAL) POCT Hemoglobin A1c (05/18/2019 5:00 PM EDT) Hemoglobin A1c 6.0(A) 4.2 - 5.8 % [facility] Other 05/18/2019 5:00 PM EDT us Caron Montes De Oca NP POINT OF CARE TEST ORDERABLES F inal Result [address] [address] * Microalbumin/creatinine ratio, random urine (05/18/2019 4:19 PM EDT) URINE MICROALBUMIN 1.7 0 - 2.3 mg/dL [facility] URINE CREATININE 349 mg/dL [facility] MICROALB/CRE RATIO 4.9 0 - 20 mg/g Cre [facility] Urine (Urine) 05/18/2019 4:1 9 PM EDT 05/18/2019 8:03 PM EDT us Caron Montes De Oca [employer] URINE ORDERABLES Final Result Performing Organization Address [facility]/ZIP Co de Phone Number [address] [address] * PAP SMEAR FOR RESULT ENTRY ONLY (11/17/2013) Pap smear [facility] us Historical Provider HEALTH MAINTENANCE Final Result from Last 3 Months or Most Recently Relevant to Health Maintenance Insurance [facility] [employer] R UNITED R R [facility] Member Subscriber Plan / Payer (Ef fective 2018-Present) Name:Janine Mulligan Relation to Subscriber:Self Name:Janine Mulligan Payer ID:[id number] (NAIC) Type:PPO Address: [place] [phone] Care Teams Top Printing Press Operator Relationship Specialty Start Date End Date Pcp, Unknown PCP - General 12/26/20 Additional Source Comments The information contained in this document represents components of the legal health record. It is not the complete legal health record.[facility]
[2025-08-07 12:14] LABS: Cholesterol 171 mg/dL (<200); Estimated Glomerular Filt Rate > 60; HDL Cholesterol 68 mg/dL (>40); Triglycerides 57 mg/dL (<150)
[2025-08-07 12:41] LABS: Microalbum/Creatinine Ratio Ur 11.6 ug/mg cr (<30)
== END 2025-08-07 10:53 | disposition home or self-care (01) ==
LOC: HO.LAB 10:52
PROVIDERS: PCP Nurse Practitioner Family; Visit Provider Student in an Organized Health Care Education/Training Program
DX: E10.9 Type 1 diabetes mellitus without complications (principal)
CPT/HCPCS: 36415; 80061; 82043; 82565; 82570; 82947; 83036; 84681; 86341

== ENCOUNTER 2025-08-29 14:30 | Outpatient (REF) | payer OTHER, SELFPAY ==
--- OUTSIDE RECORDS SUMMARY | 2024-11-03 10:55 | XMS_ITS ---
Author Organization [facility] Address [address] [place] [address] Care Team Providers Care Marine Rigger Name Role Phone MC PEDRO Primary Care Provider UnavailSatinder Romero Jr [phone] REASON FOR VISIT Patient presents today for crohn's Encounters Encounter Location Date Provider Diagnosis [facility] [address] [place] [address] 11/03/2024 Satinder Correa Jr Plan Of Treatment Next Appt Details Provider Name:Satinder norman Jr, 02/14/2026 09:40:00 AM, [address] [facility], [address], [place], [address], Progress Notes * JUDY GRAY MDOB:[birth year] (45 yo F)Acc No.[id number]:11/03/2024 Progress Notes Patient: Nicolasa JIANGJUDY Ash Provider: Oliverio Correa MD :1980 A ge:44 Y S ex:Female Date:11/03/2024 Address:[address] [place], [place] [phone] Pcp:[facility] PEDRO Subjective: * Chief Complaints: * 1 . Patient presents today for crohn's. * Medical History: Objective: * Vitals: Assessment: Plan: * Treatment: * * The named appointment provid er may or may not be the originator of this progress note, and it is not deemed complete until electronically signed by the appointment provider. Sign off status: Pending * Provider: Oliverio Correa MD Date: 0 11/03/2024 Generated for Parth cobb/Colleen/Nguyen on: 10/29/2024 05:33 PM EST
--- OUTSIDE RECORDS SUMMARY | 2025-08-29 17:33 | XMS_ITS | Clinical Summary ---
Author Organization [facility] Address [address] [place] [address] Phone Care Team Providers Care Single Needle Tufting Machine Operator Name Role Phone Pcp, Unknown Primary [...] Hemoglobin A1c 6.0(A) 4.2 - 5.8 % [facility] Other 05/18/2019 5:00 PM EDT us Caron Montes De Oca NP LAB POCT ENTER/EDIT ORDERABLES Final Result Performing Organization Address City/[facility]/ZIP Co de Phone Number [address] [address] * Microalbumin/creatinine ratio, random urine (05/18/2019 4:19 PM EDT) URINE MICROALBUMIN 1.7 0 - 2.3 mg/dL [facility] URINE CREATININE 349 mg/dL [facility] MICROALB/CRE RATIO 4.9 0 - 20 mg/g Cre [facility] Urine (Urine) 05/18/2019 4:1 9 PM EDT 05/18/2019 8:03 PM EDT us Caron Montes De Oca NURSE REVIEWER LAB URINE ORDERABLES Final Resu lt Performing Organization Address City/[facility] Co de Phone Number [address] [address] * PAP SMEAR FOR RESULT ENTRY ONLY (11/17/2013) Pap smear [facility] us Historical Provider MD HEALTH MAINTENANCE Final Result from Last 3 Months or Most Recently Relevant to Health Maintenance [place] [address] [place] [address] R [facility] Member Subscriber Plan / Payer (Ef fective 2018-Present) Name:Janine Mulligan Relation to Subscriber:Self Name:Janine Mulligan Payer ID:[id number] (NAIC) Type:PPO Address: [place] [phone] Care Teams Single Needle Tufting Machine Operator Relationship Specialty Start Date End Date Pcp, Unknown PCP - General 12/26/20 Additional Source Comments The information contained in this document represents components of the legal health record. It is not the complete legal health record.[facility]
--- OUTSIDE RECORDS SUMMARY | 2025-08-29 17:34 | XMS_ITS | Clinical Summary ---
Author Organization [facility] Address [address] [place] [address] Care Team Providers Care Vb Developer Name Role Phone Emi Briceño MD Primary Care Provider [phone] Social History Tobacco Use Types Packs/Day Years [...] age to complete this topic Care Teams Vb Developer Relationship Specialty Start Date End Date Emi Briceño MD [address] [place] [address] PCP - General Medical Doctor Nuclear Medicine 02/06/21
--- OUTSIDE RECORDS SUMMARY | 2025-08-29 17:34 | XMS_ITS | Patient Health Record ---
Author Organization [facility] Address [address] [place] [address] Care Team Providers Care Vice President Sales Name Role Phone MC PEDRO Primary Care Provider Satinder Pisano Jr Allergies Allergen (clinical drug ingredient) Drug/Non Drug Allergy documented on EMR Reaction Allergy Type Onset Date Status Sulfa Unknown Drug Allergy Active Penicillin Unknown Drug Allergy Active azithromycin Zithromax Z-Zackary Unknown Drug Allergy Active Keflex Unknown Drug Allergy Active sulfamethoxazole / trimethoprim Bactrim Unknown Drug Allergy Active Results Component Value Reference Range Notes Complete Blood Count Auto Di ff Reviewed date:11/04/2024 02:22:32 PM Interpretation: Performing Lab:[facility], [address] [place] [phone] Notes/Report: White Blood Count 6.4 4.8-10.8 X10*3/uL [...] te Reviewed date:11/04/2024 02:22:27 PM Interpretation: Performing Lab:[address] [address] Notes/Report: Erythrocyte Sedimentation Rate 14 0-20 MM/HR Patients with polycythemia and many hemoglobin abnormalities may have depressed sed rates whereas patients with anemia may have elevated sed rates. Liver Panel Reviewed date:11/04/2024 02:22:19 PM Interpretation: Performing Lab:[address] [address] Notes/Report: Bilirubin Total 0.4 0.0-1.0 mg/dL Bilirubin Direct 0.1 0.0-0.5 mg/dL Aspartate Amino Transferase 27 5-31 U/L Alanine Aminotransferase 25 0-31 U/L Total Protein 7.4 6.5-8.0 g/dL Albumin Level 4.3 3.5-5.0 g/dL Alkaline Phosphatase 84 39-117 U/L C Reactive Protein Reviewed date:11/04/2024 02:22:38 PM Interpretation: Performing Lab:[address] [phone] Notes/Report: C Reactive Protein 0.12 < or = 0.50 mg/dL [facility] Crohn's Reviewed date:11/14/2024 12:56:59 PM Interpretation: Performing Lab:[facility], [address] [place] [phone] Notes/Report: Beba Vieirar Crohn's SEE NOTE SE E SCANNED RESULTS IN EMR Reason For Referral No Information Medications Medication SIG (Take, Route, Frequency, Duration) Notes Start Date End Date Status Famotidine 40 MG TAKE 1 TABLET BY OLGA TH AT BEDTIME ONCE A DAY; Duration: 30 Active Loratadine 10 MG 1 tablet Orally Once a day; Duration: 30 day(s) Active Pantoprazole Sodium 40 MG TAKE 1 TABLET BY MOUTH Once a day; Duration: 30 days Active Excedrin Migraine Ac tive Gabapentin 300 MG Orally Ac tive Vitamin D 1000 UNIT 1 tablet Orally Once a day Active Multivitamin Active Atorvastatin Calcium 40 MG 1 tablet Orally Once a day Active Linzess 290 MCG TAKE 1 CAPSULE BY MO UTH EVERY DAY ORALLY 90 DAYS; Duration: 90 Active Stelara 90 MG/ML INJECT 1ML (90MG) UN CHE THE SKIN DIRECTED EVERY 4 WEEKS; Duration: 84 Active PARoxetine HCl Activ e Anusol-HC 25 MG 1 suppository Rectal Twice a day; Duration: 30 days 11/02/2019 Not-Taking Immunizations Vaccine Route Administration Date Status Comme nts Influenza Unknown 08/04/2018 Administered Influenza Unknown 08/19/2018 Administered Influenza Unknown 08/01/2020 Administered Influenza Unknown 11/02/2019 Refused Influenza Unknown 11/04/2023 Refused Problems Problem Type SNOMED Code ICD Code Onset Dates Problem Status W/U Status Risk Notes Problem Hoyos's esophagus (150604606) Hoyos's esophagus without dysplasia (K22.70) Active confirmed Problem Abscess of intestine co-occurrent and due to Crohn's disease of small intestine (disorder) (2483389799171372) Crohn's disease of small intestine with abscess (K50.014) Active confirmed Problem Crohn's disease of large bowel (3746291) Crohn's disease of large intestine without complications (K50.10) Active confirmed Problem Crohn's disease of large bowel (7457151) Crohn's disease of large intestine with rectal bleeding (K50.111) Active confirmed Problem Gastroesophageal reflux disease without esophagitis (253708638) Gastroesophageal reflux disease without esophagitis (K21.9) Active confirmed Problem Irritable bowel syndrome characterized by constipation (650778723) Irritable bowel syndrome with constipation (K58.1) Active confirmed Problem Chronic idiopathic constipation (64894352) Chronic idiopathic constipation (K59.04) Active confirmed Problem Drug therapy (002397967) Drug therapy (Z79.899) Active confirmed Problem Irritable bowel syndrome (51086136) Irritable bowel syndrome with constipation and diarrhea (K58.2) Active confirmed Problem Crohn's disease (30055894) Crohn''s disease without complication, unspecified gastrointestinal tract location (K50.90) Active confirmed Vital Signs Blood pressure diastolic 11 mm Hg 02/09/2025 Height 62 in 02/09/2025 Blood pressure systolic 111 mm Hg 02/09/2025 Weight 137 lbs 02/09/2025 BMI 25.05 kg/m2 02/09/2025 Encounters Encounter Location Date Provider Diagnosis [facility] [address] [place] [phone] 02/09/2025 Satinder Correa Jr Crohn's disease of large intestine without complications K50.10 ; Irritable bowel syndrome with constipation K58.1 and Gastroesophageal reflux disease without esophagitis K21.9 [facility] [address] [place] [phone] 11/14/2024 Satinder Correa Jr [facility] [address] [place] [phone] 11/17/2024 Satinder Correa Jr [facility] [address] [place] [phone] 04/11/2025 Satinder Correa Jr Assessments Encounter Date Diagnosis (ICD Code) Assessment Notes Treatment Notes Treatment Clinical Notes Section Notes 02/09/2025 Crohn's disease of large intestine without complications (ICD-10 - K50.10) Currently, she is doing well. We recommended she continue her present regimen. We discussed diet, lifestyle modifications, and weight management regarding the treatment of reflux and high-fiber diet for constipation. She will continue Stelara. Follow-up will be in 1 year, sooner if necessary. 02/09/2025 Irritable bowel syndrome with constipation (ICD-10 - K58.1) Irritable bowel syndrome - aftercare material was printed Currently, she is doing well. We recommended she continue her present regimen. We discussed diet, lifestyle modifications, and weight management regarding the treatment of reflux and high-fiber diet for constipation. She will continue Stelara. Follow-up will be in 1 year, sooner if necessary. 02/09/2025 Gastroesophageal reflux disease without esophagitis (ICD-10 - K21.9) Currently, she is doing well. We recommended she continue her present regimen. We discussed diet, lifestyle modifications, and weight management regarding the treatment of reflux and high-fiber diet for constipation. She will continue Stelara. Follow-up will be in 1 year, sooner if necessary. Plan Of Treatment Pending Test Test Name Order Date CHEM 7 PROFILE 03/19/2018 CHEM 7 PROFILE 03/19/2018 CHEM 7 PROFILE 03/30/2020 BUN 10/28/2023 CREATININE 10/28/2023 LIVER PROFILE 05/18/2023 LIVER PROFILE 05/02/2024 LIVER PROFILE 02/28/2019 LIVER PROFILE 11/11/2023 LIVER PROFILE 04/10/2022 LIVER PROFILE 12/08/2018 LIVER PROFILE 04/04/2024 LIVER PROFILE 01/27/2019 LIVER PROFILE 01/08/2023 LIVER PROFILE 03/19/2018 LIVER PROFILE 10/05/2019 LIVER PROFILE 03/19/2018 LIVER PROFILE 03/31/2019 LIVER PROFILE 10/28/2023 LIPASE 03/31/2019 LIPASE 02/28/2019 LIPASE 11/11/2023 LIPASE 04/10/2022 LIPASE 12/08/2018 LIPASE 04/04/2024 LIPASE 01/27/2019 LIPASE 01/08/2023 LIPASE 03/19/2018 LIPASE 10/05/2019 LIPASE 03/19/2018 IRON + IBC (FE) 12/21/2023 CRP 11/02/2019 CRP 05/02/2024 CRP 08/29/2020 CRP 11/11/2023 CRP 04/10/2022 CRP 04/04/2024 CBC w DIFF 10/28/2023 CBC w DIFF 03/19/2018 CBC w DIFF 03/19/2018 CBC w DIFF 03/31/2019 CBC w DIFF 11/02/2019 CBC w DIFF 04/10/2022 CBC w DIFF 01/27/2019 CBC w/o DIFF 01/08/2023 CBC w/o DIFF 10/05/2019 CBC w/o DIFF 04/04/2024 CBC w/o DIFF 05/18/2023 CBC w/o DIFF 05/02/2024 CBC w/o DIFF 08/29/2020 CBC w/o DIFF 11/11/2023 CBC w/o DIFF 12/08/2018 SED RATE (ESR) 11/11/2023 SED RATE (ESR) 04/10/2022 SED RATE (ESR) 01/08/2023 SED RATE (ESR) 04/04/2024 SED RATE (ESR) 10/28/2023 SED RATE (ESR) 11/02/2019 SED RATE (ESR) 05/02/2024 SED RATE (ESR) 08/29/2020 CT ABD & PELVIS WITH CONTRAST 10/28/2023 CT ABD & PELVIS WITH PO CONT ONLY 2012 CT ABD & PELVIS WITH PO CONT ONLY 2017 PROMETHEUS CROHN'S PROGNOSTIC 11/02/2019 PROMETHEUS THIOPURINE METABOLITES (TPMT) 11/02/2019 PROMETHEUS THIOPURINE METABOLITES (TPMT) 10/05/2019 PROMETHEUS THIOPURINE METABOLITES (TPMT) 03/31/2019 PROMETHEUS THIOPURINE METABOLITES (TPMT) 02/28/2019 PROMETHEUS THIOPURINE METABOLITES (TPMT) 04/22/2021 PROMETHEUS TPMT ENZYME 12/08/2018 PROMETHEUS TPMT GENETICS 12/08/2018 PROMETHEUS MONITR CROHN'S 05/02/2024 PROMETHEUS MONITR CROHN'S 08/29/2020 PROMETHEUS MONITR CROHN'S 04/10/2022 PROMETHEUS MONITR CROHN'S 01/08/2023 PROMETHEUS MONITR CROHN'S 04/04/2024 PROMETHEUS MONITR CROHN'S 10/28/2023 CALPROTECTIN, STOOL 10/28/2023 Thiopurine Metabolites 11/11/2023 Thiopurine Metabolites 01/08/2023 Future Test Test Name Order Date COLONOSCOPY 02/21/2015 UPPER GI ENDOSCOPY 11/12/2016 COLONOSCOPY CONTROL OF BLEEDING ANY METH OD 11/12/2016 COLONOSCOPY 10/01/2018 COLONOSCOPY 01/08/2023 UPPER GI ENDOSCOPY 12/21/2023 COLONOSCOPY 12/21/2023 Next Appt Details Provider Name:Satinder norman , 02/14/2026 09:40:00 AM, [address], [address], [place], [address], Insurance Providers Payer Name Payer Address Payer Phone Subscriber Number Group Number Insured Name Patient Relationship to Insured Coverage Start Date Coverage End Date [employer] [place] [address] [address] [place] [id number] 1 JUDY GRAY Self - patient is the insured Medications Administered Medication Instructions Date of Administration Dosage Notes Humira 08/17/2015 Medical (General) History Medical History History ICD Code colonoscopy 11/18/19 [...]
== END 2025-08-29 14:31 | disposition home or self-care (01) ==
LOC: HO.MAMMO 14:30
PROVIDERS: PCP Nurse Practitioner Family; Visit Provider Nurse Practitioner Family
DX: Z12.31 Encounter for screening mammogram for malignant neoplasm of breast (principal)
CPT/HCPCS: 77063; 77067

== ENCOUNTER → 2025-08-29 14:30 | Outpatient (BNV) | payer OTHER, SELFPAY | PROVIDERS: PCP Nurse Practitioner Family; Visit Provider Radiology Body Imaging | DX: Z12.31 Encounter for screening mammogram for malignant neoplasm of breast (principal) | CPT/HCPCS: 77063; 77067 ==

== ENCOUNTER 2025-09-09 13:04 | Outpatient (REF) | payer OTHER, SELFPAY ==
--- OUTSIDE RECORDS SUMMARY | 2025-09-09 13:09 | XMS_ITS | Clinical Summary ---
Author Organization [facility] Address [address] [place] [id number] Phone Care Team Providers Care Semiconductor Wafers Saw Operator Name Role Phone Pcp, Unknown Primary [...] on patient's age to complete this topic IPV VACCINES Aged Out No longer eligi ble [...] * MAMMOGRAPHY FOR RESULT ENTRY ONLY (09/23/2019) Honorio Peña MD HEALTH MAINTENANCE Edited Res ult - Final * DIABETES EYE EXAM FOR RESULT ENTRY ONLY (08/26/2019) Historical Provider HEALTH MAINTENANCE Final Result * (ABNORMAL) POCT Hemoglobin A1c (05/18/2019 5:00 PM EDT) Hemoglobin A1c 6.0(A) 4.2 - 5.8 % [facility] Other 05/18/2019 5:00 PM EDT us Caron Montes De Oca NP LAB POCT ENTER/EDIT ORDERABLES Final Result Performing Organization Address City/[facility]/ZIP Co de Phone Number [address] [address] * Microalbumin/creatinine ratio, random urine (05/18/2019 4:19 PM EDT) URINE MICROALBUMIN 1.7 0 - 2.3 mg/dL [facility] URINE CREATININE 349 mg/dL [facility] MICROALB/CRE RATIO 4.9 0 - 20 mg/g Cre [facility] Urine (Urine) 05/18/2019 4:1 9 PM EDT 05/18/2019 8:03 PM EDT us Caron Montes De Oca NP LAB URINE ORDERABLES Final Resu lt Performing Organization Address City/[facility]/ZIP Co de Phone Number [address] [address] * PAP SMEAR FOR RESULT ENTRY ONLY (11/17/2013) Pap smear [facility] Historical Provider HEALTH MAINTENANCE Final Result from Last 3 Months or Most Recently Relevant to Health Maintenance Insurance [facility] UNITED R UNITED R [facility] [address] [place], [place] [id number] [place], [place] [address] [facility] Member Subscriber Plan / Payer (Ef fective 2018-Present) Name:Janine Mulligan Relation to Subscriber:Self Name:Janine Mulligan Payer ID:[id number] (NAIC) Type:PPO Address: [place] [phone] Care Teams Semiconductor Wafers Saw Operator Relationship Specialty Start Date End Date Pcp, Unknown PCP - General 12/26/20 Additional Source Comments The information contained in this document represents components of the legal health record. It is not the complete legal health record.[facility]
--- OUTSIDE RECORDS SUMMARY | 2025-09-09 13:10 | XMS_ITS | Clinical Summary ---
Author Organization [facility] Address [address] [place] [address] Care Team Providers Care Grain Miller Helper Name Role Phone Emi Briceño MD Primary Care Provider [phone] Social History Tobacco Use Types Packs/Day Years [...] age to complete this topic Care Teams Grain Miller Helper Relationship Specialty Start Date End Date Emi Briceño MD [address] [place] [address] PCP - General Tax Examiner 02/06/21
[2025-09-09 13:39] LABS: MANUAL DIFF FLAG NO
[2025-09-09 13:46] LABS: Hematocrit 33.7 % (37.0-47.0); Hemoglobin 10.8 g/dl (12.0-16.0); Imm Gran Abs Auto 0.02 X10*3/uL (0.00-0.03); Imm Gran Pct Auto 0.3 % (0.0-0.4); Lymphocytes Absolute Auto 2.1 X10*3/uL (1.2-4.9); Mean Corpuscular HGB Conc 32.0 g/dl (31.0-35.0); Mean Corpuscular Hemoglobin 28.3 pg (27.0-33.0); Mean Corpuscular Volume 88.5 fL (80.0-98.0); NRBC Abs Auto 0.000 X10*3/uL (0.0-0.012); NRBC Pct Auto 0.0 /100WBC (0.0-0.2); Platelet Count 371 X10*3/uL (160-400); Red Blood Count 3.81 X10*6/uL (4.20-5.50); White Blood Count 6.9 X10*3/uL (4.8-10.8)
[2025-09-09 14:10] LABS: Alanine Aminotransferase 17 U/L (0-31); Albumin Level 4.3 g/dL (3.5-5.0); Alkaline Phosphatase 80 U/L (39-117); Anion Gap 14 (12-20); Aspartate Amino Transferase 27 U/L (5-31); Blood Urea Nitrogen 19 mg/dL (9-16); Calcium 9.5 mg/dL (8.4-10.2); Carbon Dioxide 23 mmol/L (22-29); Chloride 107 mmol/L (96-108); Cholesterol 165 mg/dL (<200); Estimated Glomerular Filt Rate > 60; HDL Cholesterol 65 mg/dL (>40); Potassium 4.0 mmol/L (3.3-5.1); Sodium 140 mmol/L (135-145); Total Protein 7.3 g/dL (6.5-8.0); Triglycerides 80 mg/dL (<150)
[2025-09-11 20:14] LABS: Follicle Stimulating Hormone 6.9 mIU/mL
== END 2025-09-09 13:05 | disposition home or self-care (01) ==
LOC: HO.HMGCLDS 13:04
PROVIDERS: PCP Nurse Practitioner Family; Visit Provider Nurse Practitioner Family
DX: Z00.00 Encounter for general adult medical examination without abnormal findings (principal); R63.5 Abnormal weight gain; E55.9 Vitamin D deficiency, unspecified; Z13.6 Encounter for screening for cardiovascular disorders
CPT/HCPCS: 36415; 80053; 80061; 82306; 82533; 82670; 82681; 83001; 83002; 84443; 85025

== ENCOUNTER 2025-09-14 11:06 | Outpatient (AMB) | payer OTHER, SELFPAY ==
--- OUTSIDE RECORDS SUMMARY | 2024-11-03 10:55 | XMS_ITS ---
Author Organization [facility] Address [address] [place] [address] Care Team Providers Care Emr Analyst Name Role Phone MC PEDRO Primary Care Provider UnavailSatinder Romero Jr REASON FOR VISIT Patient presents today for crohn's Encounters Encounter Location Date Provider Diagnosis [facility] [address] [place] [address] 11/03/2024 Satinder Correa Jr Plan Of Treatment Next Appt Details Provider Name:Satinder norman Jr, 02/14/2026 09:40:00 AM, [address] [facility], [address], [place], [address], Progress Notes * JUDY GRAY MDOB:[birth year] (45 yo F)Acc No.[id number]:11/03/2024 Progress Notes Patient: Nicolasa PERRINJUDY VALERO Provider: Oliverio Correa MD :1980 A ge:44 Y S ex:Female Date:11/03/2024 Address:[address] [place], [place] [phone] Pcp:MC PEDRO Subjective: * Chief Complaints: * P atient presents today for crohn's * The named appointment provid er may or may not be the originator of this progress note, and it is not deemed complete until electronically signed by the appointment provider. Sign off status: Pending * Provider: Oliverio Correa MD Date: 0 11/03/2024 Generated for Parth cobb/Colleen/Nguyen on: 11/14/2024 05:15 PM EST
--- NOTE | 2025-09-14 11:07 | A.OFFVIS_ITS ---
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), managed as type 1 Elevated PTH: Pt last seen by DR Sammi MD: Last Diabetic eye exam was on: 06/12/2025, [facility] Last Podiatry exam was on: Patient does not see a Ambulette Driver Most recent HbA1c: 6.3%, 08/07/2025 Random Glucose: 134 mg/dL Contract Associate Manager Required: No Accompanied by: Self / Same As Patient Allergies cephalexin Allergy (Unknown, Verified 09/14/25 11:11) RASH Penicillins Allergy (Unknown, Verified 09/14/25 11:11) RASH Sulfa (Sulfonamide Antibiotics) Allergy (Unknown, Verified 09/14/25 11:11) RASH azithromycin (From Zithromax Z-Zackary) Allergy (Verified 09/14/25 11:11) Unknown sulfamethoxazole (From Bactrim) Allergy (Verified 09/14/25 11:11) Unknown trimethoprim (From Bactrim) Allergy (Verified 09/14/25 11:11) Unknown clindamycin Adverse Reaction (Mild, Verified 09/14/25 11:11) Itching HPI Comments Details: 43-year-old female with past medical history significant for IBD, Kaz coming in today for follow up of elevated PTH and KAZ Elevated PTH Was complaining of fatigue which is why PTH and calcium levels were tested. Labs from 05/2024 showed calcium of 10.4 mg/dL with albumin of 4.5 grams/deciliter, vitamin-D 57.5 ng/mL and PTH of 95.7 pg/mL. Normal kidney function. no calcium supplements no kidney stones, 2023: kidneys unremarkable on abdominal CT scan, patient denies any hematuria no increased urination, no increased thirst, no abdominal pain currently but does have it with episodes of IBD has IBD and constipation is on Linzess following with GI at [facility], Dr. Keenan no fractures, bone denisty March 2023: normal z scores 06/18: PTH 95.7, Ca 10.4, albumin 4.4, vitamin D 57.5 Repeat labs May 2024 showed PTH of 91, calcium of 10.1, ionized calcium 5.3 which is normal Labs in June 2024 showed 24 hour urine calcium of 103 Currently not taking any vitamin D Was taking it up unit l May not sure what dose Not on calcium supplements Currenlty not eating milk, cheese, yogurt no calcium disorders in family , no kidney stones in the family has GERD and Barretts esophagus at EG junction, history of resolved pituitary adenoma, note: Consider MEN1 if patient has hyperparathyroidism on PPI 40 mg daily Interval history Currently taking vitamin-D 1000 units daily History of pituitary adenoma in the past: Resolved In May of 2023 when she was admitted in the hospital she was noted to have a 3 mm hypoenhancing lesion in the pituitary, that subsequently resolved on MRI repeated in October of 2023 Pituitary workup was unremarkable at that time no vision changes, intermittent headaches, no nipple discharge Interval history 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 Advised normal thyroid function and normal prolactin also noted. KAZ: /KAZ diagnosed 2014, who presents for management of diabetes. She was found to have + RODOLFO 65 antibodies in 2010 when she was trying to donate a kidney to her father. 2011 RODOLFO was 18.5 and in 2014 was 8.9, negative islet cell antibodies, she had detectable C-peptide and insulin level. Past medical history: (KAZ), 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, Chrone's disease, Raynaud's diesease Father: has type 2 DM no one has Type 1. Diabetes medications: peviously was on Toujeo 14 units, Humalog Insulin to carb ratio 1u:15g and correction of 1 unit for every 50mg/dl above 150mg/dl). she is currently not on any insulin. Stopped December 2023 5.8 % A1c in February 2024 A1c 6.2 % POC 12/05/24: 6.4% 08/10/25: 6.3% She wears a Dexcom G7 Interval history Remains off insulin CGM data: Interpretation: BG overall in range, with mild spikes with meals. No hypoglycemia. Complications Neuropathy: she does have paresthesias in feet but had Raynauds and radiculopathy Last eye visit: 12/19, no retinopathy Kidney function is normal No VA or stroke Interval history: She continues off insulin, no DKA episodes No recent changes in medication Appetite low, but reports gaining weight No bone pains No falls or fractures She reports episodes of hypoglycemia Physical exam: General: Well appearing. NAD. Not Cushingoid or Acromegalic Neck/Thyroid: Thyroid not palpable, no nodules. CV: RRR, no murmur. No edema. Resp:Lungs clear to auscultation bilaterally Abdomen: Soft, nontender. nondistended Extremities/Neuro: No weakness or tremor of outstretched hands Laboratory Tests 08/02/25 08/07/25 08/07/25 09:17 11:23 11:32 Creatinine Estimated GFR Random Glucose Hemoglobin A1c % 6.3 H Calcium Ionized Calcium 5.2 PTH Intact 88.5 H Microalb/Creat Ratio 11.6 09/09/25 13:08 Creatinine 0.96 Estimated GFR > 60 Random Glucose 91 Hemoglobin A1c % Calcium 9.5 Ionized Calcium PTH Intact Microalb/Creat Ratio Laboratory Tests 03/23/19 06/15/20 01/03/22 11:10 09:40 09:13 Creatinine Estimated GFR Glucose (Clinic) Hgb A1c (Clinic) C-Peptide 0.84 0.65 L 0.75 L Calcium Ionized Calcium Phosphorus Magnesium Albumin Triglycerides Cholesterol LDL Cholesterol, Calc HDL Cholesterol 25-OH Vitamin D Total TSH Estradiol Ultra LCMSMS FSH Luteinizing Hormone Prolactin PTH Intact Ur 24 Hour Volume Ur Creatinine mg/dL Ur Creatinine 24 Hour Urine Microalbumin Microalb/Creat Ratio Ur Calcium 24 Hr Calcium/Creat 24 Hr 06/08/23 06/08/23 10/29/23 09:08 09:10 13:05 Creatinine 0.78 Estimated GFR > 60 Glucose (Clinic) Hgb A1c (Clinic) C-Peptide Calcium Ionized Calcium Phosphorus Magnesium Albumin Triglycerides 193 Cholesterol 150 LDL Cholesterol, Calc 76 HDL Cholesterol 36 25-OH Vitamin D Total TSH Estradiol Ultra LCMSMS FSH Luteinizing Hormone Prolactin PTH Intact Ur 24 Hour Volume Ur Creatinine mg/dL Ur Creatinine 24 Hour Urine Microalbumin 10.0 Microalb/Creat Ratio 5.5 Ur Calcium 24 Hr Calcium/Creat 24 Hr 11/09/23 04/04/24 06/03/24 14:53 11:24 09:55 Creatinine 0.85 Estimated GFR > 60 Glucose (Clinic) Hgb A1c (Clinic) 5.8 C-Peptide Calcium 10.4 H Ionized Calcium Phosphorus Magnesium Albumin 4.4 Triglycerides Cholesterol LDL Cholesterol, Calc HDL Cholesterol 25-OH Vitamin D Total 57.5 TSH Estradiol Ultra LCMSMS FSH Luteinizing Hormone Prolactin PTH Intact 95.7 H Ur 24 Hour Volume Ur Creatinine mg/dL Ur Creatinine 24 Hour Urine Microalbumin Microalb/Creat Ratio Ur Calcium 24 Hr Calcium/Creat 24 Hr 06/09/24 07/08/24 07/08/24 17:00 08:00 Unknown Creatinine Estimated GFR Glucose (Clinic) Hgb A1c (Clinic) C-Peptide Calcium 10.1 Ionized Calcium 5.3 Phosphorus 4.1 Magnesium 2.1 Albumin 4.5 Triglycerides Cholesterol LDL Cholesterol, Calc HDL Cholesterol 25-OH Vitamin D Total TSH 1.34 Estradiol Ultra LCMSMS FSH Luteinizing Hormone Prolactin PTH Intact 91.9 H Ur 24 Hour Volume 550 Ur Creatinine mg/dL 158.91 Ur Creatinine 24 Hour 0.79 Urine Microalbumin Microalb/Creat Ratio Ur Calcium 24 Hr 103 Calcium/Creat 24 Hr 130 08/04/24 08/20/24 09/29/24 14:24 11:07 12:43 Creatinine Estimated GFR Glucose (Clinic) Hgb A1c (Clinic) 6.2 H C-Peptide 2.19 Calcium Ionized Calcium Phosphorus Magnesium Albumin Triglycerides Cholesterol LDL Cholesterol, Calc HDL Cholesterol 25-OH Vitamin D Total TSH 1.11 Estradiol Ultra LCMSMS 12 FSH 5.9 Luteinizing Hormone 1.8 Prolactin 5.5 PTH Intact Ur 24 Hour Volume Ur Creatinine mg/dL Ur Creatinine 24 Hour Urine Microalbumin Microalb/Creat Ratio Ur Calcium 24 Hr Calcium/Creat 24 Hr 11/08/24 12/05/24 12/05/24 16:28 09:00 09:08 Creatinine Estimated GFR Glucose (Clinic) 112 Hgb A1c (Clinic) 6.4 H C-Peptide Calcium Ionized Calcium Phosphorus Magnesium Albumin Triglycerides Cholesterol LDL Cholesterol, Calc HDL Cholesterol 25-OH Vitamin D Total TSH 1.23 Estradiol Ultra LCMSMS 36 FSH 8.0 Luteinizing Hormone 6.1 Prolactin 7.8 PTH Intact Ur 24 Hour Volume Ur Creatinine mg/dL Ur Creatinine 24 Hour Urine Microalbumin Microalb/Creat Ratio Ur Calcium 24 Hr Calcium/Creat 24 Hr Laboratory Tests 08/20/24 08/20/24 11:00 11:07 Triglycerides 59 Cholesterol 157 LDL Cholesterol, Calc 77 HDL Cholesterol 69 Urine Creatinine 283.67 Urine Microalbumin 20.0 Microalb/Creat Ratio 7.0 PFSH Medical History Irritable bowel syndrome with constipation Crohn's disease Hyperparathyroidism Barretts esophagus Allergic rhinitis GERD (gastroesophageal reflux disease) Diverticulitis IBS (irritable bowel syndrome) Pituitary abnormality Hx of sigmoidoscopy Pituitary adenoma Vitamin D deficiency Iron deficiency Normal pelvic exam Annual physical exam 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), managed as type 1 Elevated cholesterol Anxiety Postlaminectomy syndrome of lumbar region Diabetes type 1, controlled Chronic pain syndrome 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 Subsequently noted to have low C-peptide levels, and used to be on insulin however in December 2023 she discontinued all insulin as she was having multiple lows and was barely on any dosage. She wears a Dexcom CGM, and she is in range 77 % of the time. A1c today in clinic 6.4% which is stable from was 6.2% in July 2024 . she is not having any significant lows, . It is very surprising to see how she is in range without any insulin while she was requiring insulin previously and was treated as a type 1 patient. She could possibly be in the honeymoon phase but that does not last so far out into her diagnosis which was made in 2014. Educated the patient about risk of developing diabetic ketoacidosis with symptoms of nausea, vomiting, abdominal pain, mental status changes, feeling ill. She does have urine ketone strips . She also has her prior insulin at home. It is good that she wears the Dexcom which can monitor her blood sugars closely. If she has any of the above, she will reach out to us/go to the emergency room. I had previously plan to start her on a low-dose basal insulin, however her C-peptide levels are also normal from July 2024. At 2.39. This is very atypical. I am not really sure what to make of her honeymoon phase, and whether her being on her biologic has anything to do with this. I have asked her to continue to monitor her blood sugars and reach out to us if she starts having hyperglycemia or hypoglycemia consistently. Her blood pressure is at goal. Advised her to do 150 minutes of exercise in a week for maintenance of healthy weight. She should have a snack bar or glucose tablets if intense exercise to avoid hypoglycemia. No history of kidney disease, normal urine microalbumin and LDL within goal of less than 90 mg/dL from July 2025. Plan: -continue monitoring blood sugars. -follow up in 8 months -She is made aware that at some point she might require insulin, advised to monitor for sign/symptoms of DKA (2) Hyperparathyroidism: Code(s): E21.3 - Hyperparathyroidism, unspecified Category: Medical Plan: PTH level elevated at 95.7 05/2024. No PTH levels done in the past. Calcium noted to be at 10.4 which is high however albumin level also noted to be at 4.4, correcting the calcium level for the albumin, calcium level is actually normal. Ionized calcium levels also noted to be normal. Repeat PTH level in May 2024 noted to be 91. She has normal vitamin-D levels. Given normal kidney function as well, this is not secondary hyperparathyroidism. 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 , and indications for surgery the same as primary hyperparathyroidism. In her case she does not have any kidney stones, her bone density was unremarkable March 2023, she has not had any fractures, her urine calcium levels are normal. Her only indication is age less than 50, however given normal calcium levels, I do not want to jump towards surgical management. At this time we will continue to monitor her with repeat labs in 8 months.. I have asked her to reach out sooner if she has fractures or develops kidney stones. She does have poor calcium intake, especially in the setting of IBD I have asked her to take at least 2000 units of vitamin-D daily, and calcium rich foods 2-3 servings daily to allow a 1000 mg of calcium in diet. She does have some nonspecific symptoms, however likely unrelated to her calcium levels which are normal. PTH remains high, but somewhat lower than before. I agree with previously stated reason to monitor in the absence of criteria or definitive benefit from parathyroid surgery. Plan: -plan to repeat blood work in 8 months -vitamin-D 1000 to 2000 units daily -calcium intake 1000 mg daily in diet with 2-3 servings of calcium rich foods -follow up in 8 months Plan 30 minutes spent reviewing previous records, labs, imaging, education and documenting in the chart Orders: Orders 2 Calcium, Ionized 8 Months E21.3 - Hyperparathyroidism, unspecified Comprehensive Met. 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
[2025-09-14 11:10] VITALS: BP 100/60; PULSE 87; O2SAT 98; BMI 26.2
[2025-09-14 11:17] LABS: Glucose, Whole Blood 134 mg/dL (60-115)
--- OUTSIDE RECORDS SUMMARY | 2025-09-14 17:16 | XMS_ITS | Clinical Summary ---
Author Organization [facility] Address [address] [place] [id number] Phone Care Team Providers Care Esthetic Dermatologist Name Role Phone Pcp, Unknown Primary Care [...] Hemoglobin A1c 6.0(A) 4.2 - 5.8 % [facility] Other 05/18/2019 5:00 PM EDT us Caron Montes De Oca NP LAB POCT ENTER/EDIT ORDERABLES Final Result Performing Organization Address City/[facility]/ZIP Co de Phone Number [address] [address] * Microalbumin/creatinine ratio, random urine (05/18/2019 4:19 PM EDT) URINE MICROALBUMIN 1.7 0 - 2.3 mg/dL [facility] URINE CREATININE 349 mg/dL [facility] MICROALB/CRE RATIO 4.9 0 - 20 mg/g Cre [facility] Urine (Urine) 05/18/2019 4:1 9 PM EDT 05/18/2019 8:03 PM EDT us Caron Montes De Oca TUBER MACHINE OPERATOR HELPER LAB URINE ORDERABLES Final Resu lt Performing Organization Address City/[facility] Co de Phone Number [address] [address] * PAP SMEAR FOR RESULT ENTRY ONLY (11/17/2013) Pap smear [facility] us Historical Provider MD HEALTH MAINTENANCE Final Result from Last 3 Months or Most Recently Relevant to Health Maintenance [place] [address] [place] [address] [facility] Member Subscriber Plan / Payer (Ef fective 2018-Present) Name:Janine Mulligan Relation to Subscriber:Self Name:Janine Mulligan Payer ID:[id number] (NAIC) Type:PPO Address: [place] [phone] Care Teams Esthetic Dermatologist Relationship Specialty Start Date End Date Pcp, Unknown PCP - General 12/26/20 Additional Source Comments The information contained in this document represents components of the legal health record. It is not the complete legal health record.[facility]
--- OUTSIDE RECORDS SUMMARY | 2025-09-14 17:16 | XMS_ITS | Patient Health Record ---
Author Organization [facility] Address [address] [place] [address] Care Team Providers Care Vocational Case Manager Name Role Phone [facility] Primary Care Provider Satinder Pisano Jr [phone] Allergies Allergen (clinical drug ingredient) Drug/Non Drug Allergy documented on EMR Reaction Allergy Type Onset Date Status sulfamethoxazole / trimethoprim Bactrim Unknown Drug Allergy Active Keflex Unknown Drug Allergy Active azithromycin Zithromax Z-Zackary Unknown Drug Allergy Active Penicillin Unknown Drug Allergy Active Sulfa Unknown Drug Allergy Active Results Component Value Reference Range Flag Notes Complete Blood Count Auto Di ff Reviewed date:11/04/2024 02:22:32 PM Interpretation: Performing Lab:[facility], [address] [place] [phone] Notes/Report: White Blood Count 6.4 4.8-10.8 X10*3/uL N Red Blood Count 4.05 4.20-5.50 X10*6/uL L Hemoglobin 12.3 12.0-16.0 g/dl N Hematocrit 37.9 37.0-47.0 % N Mean Corpuscular Volume 93.6 80.0-98.0 fL N Mean Corpuscular Hemoglobin 30.4 27.0-33.0 pg N Mean Corpuscular HGB Conc 32.5 31.0-35.0 g/dl N Red Cell Distribution Width 11.7 11.0-16.0 % N Platelet Count 328 160-400 X10*3/uL N Mean Platelet Volume 11.5 9.4-12.3 fL N Neutrophils Percent Auto 62.2 45-73 % N Imm Gran Pct Auto 0.2 0.0-0.4 % N Lymphocytes Percent Auto 29.0 20-40 % N Monocytes Percent Auto 6.4 2-11 % N Eosinophils Percent Auto 1.9 0-4 % N Basophils Percent Auto 0.3 0-2 % N NRBC Pct Auto 0.0 0.0-0.2 /100WBC N Neutrophils Absolute Auto 4.0 2.0-8.3 x10*3/uL N Imm Gran Abs Auto 0.01 0.00-0.03 X10*3/uL N Lymphocytes Absolute Auto 1.9 1.2-4.9 X10*3/uL N Monocytes Absolute Auto 0.4 0.1-1.2 X10*3/uL N Eosinophils Absolute Auto 0.1 0.0-0.4 X10*3/uL N Basophils Absolute Auto 0.0 0.0-0.2 X10*3/uL N NRBC Abs Auto 0.000 0.0-0.012 X10*3/uL N Erythrocyte Sedimentation Ra te Reviewed date:11/04/2024 02:22:27 PM Interpretation: Performing Lab:[address] [id number] Notes/Report: Erythrocyte Sedimentation Rate 14 0-20 MM/HR N Patients with polycythemia and many hemoglobin abnormalities may have depressed sed rates whereas patients with anemia may have elevated sed rates. Liver Panel Reviewed date:11/04/2024 02:22:19 PM Interpretation: Performing Lab:[address] [phone] Notes/Report: Bilirubin Total 0.4 0.0-1.0 mg/dL N Bilirubin Direct 0.1 0.0-0.5 mg/dL N Aspartate Amino Transferase 27 5-31 U/L N Alanine Aminotransferase 25 0-31 U/L N Total Protein 7.4 6.5-8.0 g/dL N Albumin Level 4.3 3.5-5.0 g/dL N Alkaline Phosphatase 84 39-117 U/L N C Reactive Protein Reviewed date:11/04/2024 02:22:38 PM Interpretation: Performing Lab:[facility], [address] [place] [phone] Notes/Report: C Reactive Protein 0.12 < or = 0.50 mg/dL N Beba Vieirar Crohn's Reviewed date:11/14/2024 12:56:59 PM Interpretation: Performing Lab:[facility], [address] [place] [phone] Notes/Report: Beba Vieirar Crohn's SEE NOTE SEE SCANNED RESULTS IN EMR Reason For Referral No Information Medications Medication SIG (Take, Route, Frequency, Duration) Notes Start Date End Date Status Famotidine 40 MG Tablet TAKE 1 TABLET BY MOUTH AT BEDTIME ONCE A DAY; Duration: 30 Active Loratadine 10 MG Tablet 1 tablet Orally Once a day; Duration: 30 day(s) Active Pantoprazole Sodium 40 MG Tablet Delayed Release TAKE 1 TABLET BY MOUTH Once a day; Duration: 30 days Active Excedrin Migraine Ac tive Gabapentin 300 MG Capsule Orally Active Vitamin D 1000 UNIT Tablet 1 tablet Orally Once a day Active Multivitamin Active Atorvastatin Calcium 40 MG Tablet 1 tablet Orally Once a day Active Linzess 290 MCG Capsule TAKE 1 CAPSULE B Y MOUTH EVERY DAY ORALLY 90 DAYS; Duration: 90 Active Stelara 90 MG/ML Solution Prefilled Syringe INJECT 1ML (90MG) UNDER THE SKIN DIRECTED EVERY 4 WEEKS; Duration: 84 Active PARoxetine HCl Activ e Anusol-HC 25 MG Suppository 1 suppository Rectal Twice a day; Duration: 30 days 11/02/2019 Not-Taking/PRN Immunizations Vaccine Route Administration Date Status Comme nts Influenza Unknown 08/04/2018 Administered Influenza Unknown 08/19/2018 Administered Influenza Unknown 11/02/2019 Refused Influenza Unknown 08/01/2020 Administered Influenza Unknown 11/04/2023 Refused Social History Social History Additional Details Category Social Info Options Details Miscellaneous: Marital status: 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 Problems Problem Type SNOMED Code ICD Code Onset Dates Problem Status W/U Status Risk Notes Problem Hoyos's esophagus (623321058) Hoyos's esophagus without dysplasia (K22.70) Active confirmed Problem Abscess of intestine co-occurrent and due to Crohn's disease of small intestine (disorder) (7487339992418049) Crohn's disease of small intestine with abscess (K50.014) Active confirmed Problem Crohn's disease of large bowel (5816225) Crohn's disease of large intestine without complications (K50.10) Active confirmed Problem Crohn's disease of large bowel (8624983) Crohn's disease of large intestine with rectal bleeding (K50.111) Active confirmed Problem Gastroesophageal reflux disease without esophagitis (081919522) Gastroesophageal reflux disease without esophagitis (K21.9) Active confirmed Problem Irritable bowel syndrome characterized by constipation (682087137) Irritable bowel syndrome with constipation (K58.1) Active confirmed Problem Chronic idiopathic constipation (88478322) Chronic idiopathic constipation (K59.04) Active confirmed Problem Drug therapy (104744877) Drug therapy (Z79.899) Active confirmed Problem Irritable bowel syndrome (69176234) Irritable bowel syndrome with constipation and diarrhea (K58.2) Active confirmed Problem Crohn's disease (24285391) Crohn''s disease without complication, unspecified gastrointestinal tract location (K50.90) Active confirmed Vital Signs Blood pressure diastolic 11 mm Hg 02/09/2025 Height 62 in 02/09/2025 Blood pressure systolic 111 mm Hg 02/09/2025 Weight 137 lbs 02/09/2025 BMI 25.05 kg/m2 02/09/2025 Encounters Encounter Location Date Provider Diagnosis [facility] [address] [place] [phone] 02/09/2025 Satinder Correa Jr Crohn's disease of large intestine without complications K50.10 ; Irritable bowel syndrome with constipation K58.1 and Gastroesophageal reflux disease without esophagitis K21.9 [facility] [address] [place] [phone] 11/14/2024 Satinder Correa Jr [facility] [address] [place] [phone] 11/17/2024 Satinder Correa Jr [facility] [address] [place] [phone] 04/11/2025 Satinder Correa Jr Assessments Encounter Date [...] CREATININE 10/28/2023 LIVER PROFILE 05/18/2023 LIVER PROFILE 10/05/2019 LIVER PROFILE 10/28/2023 LIVER PROFILE 03/19/2018 LIVER PROFILE 12/08/2018 LIVER PROFILE 01/27/2019 LIVER PROFILE 02/28/2019 LIVER PROFILE 03/31/2019 LIVER PROFILE 03/19/2018 LIVER PROFILE 01/08/2023 LIVER PROFILE 05/02/2024 LIVER PROFILE 04/10/2022 LIVER PROFILE 11/11/2023 LIVER PROFILE 04/04/2024 LIPASE 11/11/2023 LIPASE 04/04/2024 LIPASE 01/08/2023 LIPASE 04/10/2022 LIPASE 03/19/2018 LIPASE 03/19/2018 LIPASE 10/05/2019 LIPASE 03/31/2019 LIPASE 01/27/2019 LIPASE 12/08/2018 LIPASE 02/28/2019 IRON + IBC (FE) 12/21/2023 CRP 05/02/2024 CRP 08/29/2020 CRP 04/10/2022 CRP 11/02/2019 CRP 11/11/2023 CRP 04/04/2024 CBC w DIFF 11/02/2019 CBC w DIFF 04/10/2022 CBC w DIFF 03/19/2018 CBC w DIFF 03/19/2018 CBC w DIFF 10/28/2023 CBC w DIFF 01/27/2019 CBC w DIFF 03/31/2019 CBC w/o DIFF 10/05/2019 CBC w/o DIFF 12/08/2018 CBC w/o DIFF 05/18/2023 CBC w/o DIFF 01/08/2023 CBC w/o DIFF 05/02/2024 CBC w/o DIFF 08/29/2020 CBC w/o DIFF 11/11/2023 CBC w/o DIFF 04/04/2024 SED RATE (ESR) 04/04/2024 SED RATE (ESR) 11/02/2019 SED RATE (ESR) 08/29/2020 SED RATE (ESR) 04/10/2022 SED RATE (ESR) 01/08/2023 SED RATE (ESR) 05/02/2024 SED RATE (ESR) 11/11/2023 SED RATE (ESR) 10/28/2023 CT ABD & [...] PROMETHEUS MONITR CROHN'S 10/28/2023 PROMETHEUS MONITR CROHN'S 08/29/2020 PROMETHEUS MONITR CROHN'S 01/08/2023 PROMETHEUS MONITR CROHN'S 04/10/2022 PROMETHEUS MONITR CROHN'S 05/02/2024 PROMETHEUS MONITR CROHN'S 04/04/2024 CALPROTECTIN, STOOL 10/28/2023 Thiopurine Metabolites 01/08/2023 Thiopurine Metabolites 11/11/2023 Future Test Test Name Order Date COLONOSCOPY 02/21/2015 UPPER GI ENDOSCOPY 11/12/2016 COLONOSCOPY CONTROL OF BLEEDING ANY METH OD 11/12/2016 COLONOSCOPY 10/01/2018 COLONOSCOPY 01/08/2023 UPPER GI ENDOSCOPY 12/21/2023 COLONOSCOPY 12/21/2023 Next Appt Details Provider Name:Satinder rubalcavad , 02/14/2026 09:40:00 AM, [address] [facility], [address], [place], [address], Insurance Providers Payer Name Payer Address Payer Phone Subscriber Number Group Number Insured Name Patient Relationship to Insured Coverage Start Date Coverage End Date [employer] [address] [address] [place] [address] [id number] JUDY GRAY Self - patient is [...]
--- OUTSIDE RECORDS SUMMARY | 2025-09-14 17:16 | XMS_ITS | Clinical Summary ---
Author Organization [facility] Address [address] [place] [address] Care Team Providers Care Distribution Analyst Name Role Phone Emi Briceño MD Primary Care Provider [phone] Social History Tobacco Use Types Packs/Day Years [...] age to complete this topic Care Teams Distribution Analyst Relationship Specialty Start Date End Date Emi Briceño MD [address] [place] [address] PCP - General Tint Layer 02/06/21
== END 2025-09-14 11:44 | disposition home or self-care (01) ==
LOC: HO.ENCR 11:06
PROVIDERS: PCP Nurse Practitioner Family; Visit Provider Student in an Organized Health Care Education/Training Program
DX: E13.9 Other specified diabetes mellitus without complications (principal); E21.3 Hyperparathyroidism, unspecified
CPT/HCPCS: 99214

== ENCOUNTER → 2025-09-14 11:06 | Outpatient (BNVA) | payer OTHER, SELFPAY | PROVIDERS: PCP Nurse Practitioner Family; Visit Provider Student in an Organized Health Care Education/Training Program | DX: E13.9 Other specified diabetes mellitus without complications (principal); E23.1 Drug-induced hypopituitarism; Z79.4 Long term (current) use of insulin; Z79.85 Long-term (current) use of injectable non-insulin antidiabetic drugs | CPT/HCPCS: 82947; 95250 ==

== ENCOUNTER 2025-10-04 12:32 | Outpatient (REF) | payer OTHER, SELFPAY ==
[2025-10-04 12:46] LABS: MANUAL DIFF FLAG NO
[2025-10-04 13:35] LABS: Hematocrit 34.0 % (37.0-47.0); Hemoglobin 10.7 g/dl (12.0-16.0); Imm Gran Abs Auto 0.03 X10*3/uL (0.00-0.03); Imm Gran Pct Auto 0.4 % (0.0-0.4); Lymphocytes Absolute Auto 2.4 X10*3/uL (1.2-4.9); Mean Corpuscular HGB Conc 31.5 g/dl (31.0-35.0); Mean Corpuscular Hemoglobin 28.5 pg (27.0-33.0); Mean Corpuscular Volume 90.4 fL (80.0-98.0); NRBC Abs Auto 0.000 X10*3/uL (0.0-0.012); NRBC Pct Auto 0.0 /100WBC (0.0-0.2); Platelet Count 332 X10*3/uL (160-400); Red Blood Count 3.76 X10*6/uL (4.20-5.50); Reticulocytes Absolute 0.052 X10*6/uL (0.026-0.095); White Blood Count 8.6 X10*3/uL (4.8-10.8)
[2025-10-04 13:55] LABS: Appearance Urine Clear; Glucose Urine UA Negative (Negative); PH 5.0 (5.0-9.0); Specific Gravity - Urine >= 1.030 (1.005-1.025)
[2025-10-04 15:10] LABS: Alanine Aminotransferase 29 U/L (0-31); Albumin Level 4.5 g/dL (3.5-5.0); Alkaline Phosphatase 92 U/L (39-117); Anion Gap 12 (12-20); Aspartate Amino Transferase 34 U/L (5-31); Blood Urea Nitrogen 21 mg/dL (9-16); Calcium 9.4 mg/dL (8.4-10.2); Carbon Dioxide 26 mmol/L (22-29); Chloride 105 mmol/L (96-108); Estimated Glomerular Filt Rate > 60; Iron 39 mcg/dL (30-160); Percent Iron Saturation 12 % (15-50); Potassium 4.2 mmol/L (3.3-5.1); Sodium 139 mmol/L (135-145); Total Iron Binding Capacity 336 mcg/dL (228-428); Total Protein 7.4 g/dL (6.5-8.0); Unsaturated Iron Binding 297 ug/dL
[2025-10-04 15:17] LABS: Ferritin 8 ng/mL (10-250)
[2025-10-04 15:40] LABS: Folate 9.5 ng/mL (> or = 4.0); Vitamin B12 399 pg/mL (200-900)
== END 2025-10-04 12:33 | disposition home or self-care (01) ==
LOC: HO.LAB 12:32
PROVIDERS: PCP Nurse Practitioner Family; Visit Provider Nurse Practitioner Family
DX: Z00.00 Encounter for general adult medical examination without abnormal findings (principal); D64.9 Anemia, unspecified
CPT/HCPCS: 36415; 80053; 81003; 82607; 82728; 82746; 83540; 84443; 85025; 85045; 85652; 86140